=== PATIENT | female | born 1995 | race African-American/Black ===

== ENCOUNTER 2021-01-17 18:12 | Inpatient (IN) | payer OTHER, SELFPAY ==
--- NOTE | ~2021-01-17 | XR_ITS ---
EXAMINATION: XR CHEST CLINICAL INFORMATION: Chest pain COMPARISON: None TECHNIQUE: 2 views of the chest were obtained. FINDINGS: No significant abnormality is noted involving the heart, lungs, mediastinum, bony thorax or soft tissues. Mild biconvex thoracolumbar scoliosis is present. XR/XR chest 2V IMPRESSION: A cause for the patient's chest pain has not been found. The exam is negative aside from a mild biconvex thoracolumbar scoliosis.
--- NOTE | ~2021-01-17 | US_ITS ---
EXAMINATION: US ABDOMEN COMPLETE CLINICAL INFORMATION: Elevated LFTs. COMPARISON: None TECHNIQUE: Real-time imaging of the abdominal viscera. FINDINGS: PANCREAS: Normal. ABDOMINAL AORTA: The proximal, mid, and distal segments are normal in caliber. There is an echogenic linear non-shadowing area in the proximal abdominal aorta, most likely thrombus and chronic. INFERIOR VENA CAVA: Visualized portions are normal. LIVER: Normal. The liver is normal in size. The liver contour is normal. Parenchymal echogenicity is normal. No focal hepatic lesion. There is no intrahepatic biliary duct dilatation seen. GALLBLADDER: Normal. The gallbladder is physiologically distended without evidence of stones, sludge, polyps, wall thickening or pericholecystic fluid. COMMON BILE DUCT: Normal in caliber measuring 0.4 cm in diameter. RIGHT KIDNEY: Normal. No hydronephrosis. No renal calculi or focal parenchymal lesions. The kidney measures 10.3 cm in maximum dimension. LEFT KIDNEY: Normal. No hydronephrosis. No renal calculi or focal parenchymal lesions. The kidney measures 9.7 cm in maximum dimension. SPLEEN: Normal. The spleen measures 9.1 cm in maximum dimension. FREE FLUID: None. US/US abdomen complete IMPRESSION: Linear echogenic non-shadowing area in the proximal abdominal aortic central lumen, likely chronic thrombus. No aneurysm seen. The rest of the abdominal ultrasound is unremarkable.
--- NOTE | 2021-01-17 18:26 | PC.NURSE ---
ekg done at 89
[2021-01-17 18:50] VITALS: BP 124/80; PULSE 99; RESP 16; TEMP 36.3; O2SAT 100; BMI 22.7
[2021-01-17 22:00] VITALS: BP 141/75; PULSE 84; RESP 18; O2SAT 100
--- NOTE | 2021-01-17 22:25 | ED.GENADULT ---
HPI - General Adult General Chief complaint: General Medical Stated complaint: Lupus, chest pain Time Seen by Provider: 01/17/21 22:02 Source: patient Mode of arrival: ambulatory History of Present Illness HPI narrative: 25-year-old female with history of lupus and currently on Plaquenil well as prednisone. Patient states that she has been having increasing esophageal/swallowing symptoms for over 2 weeks and states that she had lab work completed this past Friday. She states that over the past couple of days she has noticed that she is having increased pain when lying flat that improves with sitting up. She denies any fevers, chills but states that she has baseline swelling with her hands that she has noticed has been ?a little worse?. and otherwise denies shortness of breath, GI symptoms, or symptoms. Patient states that she eats while laying down on her side and then notes that when she stands up she has discomfort from her stomach up to the back of her throat and endorses that at times she has coughed up large pieces of food. In addition, she describes that when she smokes cigarettes she notices discomfort as well. Otherwise she denies any recent travel, cough, sore throat. Related Data Allergies Allergy/AdvReac Type Severity Reaction Status Date / Time No Known Allergies Allergy Verified 01/17/21 18:57 Review of Systems Review of Systems: Pertinent positives and negatives as stated in HPIAnd 10 point review of systems is otherwise negative. PMFSH Past Medical History Source: nursing notes reviewed Medical History Lupus Social History Social History Alcohol intake: never Smoking Status: Current every day smoker Smoked in Last 30 Days: Yes Use of substances other than those prescribed or required for medical reasons: Yes Substance Use Type: Heroin, Marijuana, Opiates and Prescription Drugs Advance Directives: No Patient : No Physical Exam Vital Signs: Vital Signs: Last Vital Signs Temp 98.0 F 01/18/21 03:21 Pulse 74 01/18/21 03:21 Resp 16 01/18/21 03:21 BP 109/59 L 01/18/21 03:21 Pulse Ox 100 01/18/21 03:21 Body Mass Index 22.7 VITAL SIGNS: Reviewed. GENERAL: Well developed, well nourished, in no acute distress. HEAD: Normocephalic/atraumatic EYES: PERRLA, EOMI OROPHARYNX: no oral lesions noted, posterior pharynx clear NECK: Supple, no adenopathy LUNGS: Normal breath sounds. No adventitious sounds or accessory muscle use. SpO2<100> CARDIOVASCULAR: Regular rate and rhythm without noted murmurs ABDOMEN: Soft, non-tender, non-distended with bowel sounds. NEUROLOGIC: Alert and oriented x 4. Course Course Course Narrative: This 25-year-old female with history and clinical presentation suggestive of possible sequela associated with lupus condition although patient appears to be compliant with medications. In addition, there is the possibility that this is GERD. Will rule out cardiopulmonary etiologies and eval for possible lupus flare, however this is felt to be less likely. On review of all investigations there is a noted first-degree AV block on the EKG without ischemic changes with elevated troponins noted, there is no other EKG for comparison. There is a noted mild elevation of the ESR as well as CRP and given history of positional change with patient's pain raises suspicion for possible pericarditis and lupus flare. Urinalysis is noted to be positive for UTI. Repeat troponin was noted to be trending down and this case was discussed with the inpatient hospitalist team who is agreeable for admission and further evaluation. Medical Decision Making Lab Data Result diagrams: 01/17/21 22:28 01/17/21 22:28 Labs: Lab Results 01/17/21 01/17/21 01/17/21 Range/Units 22:27 22:27 22:28 WBC 5.4 (4.8-10.8) X10*3/uL RBC 3.54 L (4.20-5.50) X10*6/uL Hgb 10.2 L (12.0-16.0) g/dl Hct 32.0 L (37-47) % MCV 90.4 (80-98) fL MCH 28.8 (27.0-33.0) pg MCHC 31.9 (31.0-35.0) g/dl RDW 14.1 (11.0-16.0) % Plt Count 279 (160-400) X10*3/uL MPV 9.6 (9.4-12.3) fL Immature Gran % (Auto) 0.6 H (0.0-0.4) % Neut % (Auto) 75.7 H (45-73) % Lymph % (Auto) 18.3 L (20-40) % [place] % (Auto) 5.4 (2-11) % Eos % (Auto) 0.0 (0-4) % Baso % (Auto) 0.0 (0-2) % Lymph # (Auto) 1.0 L (1.2-4.9) X10*3/uL [place] # (Auto) 0.3 (0.1-1.2) X10*3/uL Eos # (Auto) 0.0 (0.0-0.4) X10*3/uL Baso # (Auto) 0.0 (0.0-0.2) X10*3/uL Abs Immat Gran (auto) 0.03 (0.00-0.03) X10*3/uL Absolute Neuts (auto) 4.1 (2.0-8.3) X10*3/uL Absolute Nucleated RBC 0.000 (0.0-0.012) X10*3/uL Nucleated RBC % (auto) 0.0 (0.0-0.2) /100WBC ESR (0-20) MM/HR Sodium (135-145) mmol/L Potassium (3.3-5.1) mmol/L Chloride (96-108) mmol/L Carbon Dioxide (22-29) mmol/L Anion Gap (12-20) BUN (9-16) mg/dL Creatinine (0.5-1.4) mg/dL Estim Creat Clear Calc Estimated GFR Random Glucose (60-115) mg/dL Calcium (8.4-10.2) mg/dL Total Bilirubin (0.0-1.0) mg/dL AST (5-31) U/L ALT (0-31) U/L Alkaline Phosphatase (39-117) U/L Troponin I High Sens (<3.5-17.0) ng/L C-Reactive Protein (< or = 0.50) mg/dL Total Protein (6.5-8.0) g/dL Albumin (3.5-5.0) g/dL Lipase (8-78) U/L Urine Color YELLOW Urine Appearance HAZY Urine pH 6.0 (5.0-8.0) Ur Specific [place] 1.025 (1.005-1.025) Urine Protein TRACE (NEG-TRACE) MG/DL Urine Glucose (UA) NEG (NEG) MG/DL Urine Ketones NEG (NEG) MG/DL Urine Blood TRACE (NEG) Urine Nitrite POS H (NEG) Ur Leukocyte Esterase NEG (NEG) Urine RBC 0-2 (0) /HPF Urine WBC 0 (0-4) /HPF Ur Squamous Epith Cells 1+ /LPF Urine Bacteria 2+ /LPF Urine Test NEGATIVE (NEGATIVE) COVID-19 (VERA) (Negative) COVID-19 Clin Com 01/17/21 01/17/21 01/17/21 Range/Units 22:28 22:28 22:28 WBC (4.8-10.8) X10*3/uL RBC (4.20-5.50) X10*6/uL Hgb (12.0-16.0) g/dl Hct (37-47) % MCV (80-98) fL MCH (27.0-33.0) pg MCHC (31.0-35.0) g/dl RDW (11.0-16.0) % Plt Count (160-400) X10*3/uL MPV (9.4-12.3) fL Immature Gran % (Auto) (0.0-0.4) % Neut % (Auto) (45-73) % Lymph % (Auto) (20-40) % [place] % (Auto) (2-11) % Eos % (Auto) (0-4) % Baso % (Auto) (0-2) % Lymph # (Auto) (1.2-4.9) X10*3/uL [place] # (Auto) (0.1-1.2) X10*3/uL Eos # (Auto) (0.0-0.4) X10*3/uL Baso # (Auto) (0.0-0.2) X10*3/uL Abs Immat Gran (auto) (0.00-0.03) X10*3/uL Absolute Neuts (auto) (2.0-8.3) X10*3/uL Absolute Nucleated RBC (0.0-0.012) X10*3/uL Nucleated RBC % (auto) (0.0-0.2) /100WBC ESR 48 H (0-20) MM/HR Sodium 136 (135-145) mmol/L Potassium 4.4 (3.3-5.1) mmol/L Chloride 103 (96-108) mmol/L Carbon Dioxide 25 (22-29) mmol/L Anion Gap 12 (12-20) BUN 11 (9-16) mg/dL Creatinine 0.80 (0.5-1.4) mg/dL Estim Creat Clear Calc 102.7 Estimated GFR > 60 Random Glucose 90 (60-115) mg/dL Calcium 9.4 (8.4-10.2) mg/dL Total Bilirubin 0.5 (0.0-1.0) mg/dL AST 23 (5-31) U/L ALT 6 (0-31) U/L Alkaline Phosphatase 41 (39-117) U/L Troponin I High Sens 116.0 H (<3.5-17.0) ng/L C-Reactive Protein 0.89 H (< or = 0.50) mg/dL Total Protein 8.0 (6.5-8.0) g/dL Albumin 3.9 (3.5-5.0) g/dL Lipase 4 L (8-78) U/L Urine Color Urine Appearance Urine pH (5.0-8.0) Ur Specific [place] (1.005-1.025) Urine Protein (NEG-TRACE) MG/DL Urine Glucose (UA) (NEG) MG/DL Urine Ketones (NEG) MG/DL Urine Blood (NEG) Urine Nitrite (NEG) Ur Leukocyte Esterase (NEG) Urine RBC (0) /HPF Urine WBC (0-4) /HPF Ur Squamous Epith Cells /LPF Urine Bacteria /LPF Urine Test (NEGATIVE) COVID-19 (VERA) (Negative) COVID-19 Clin Com 01/18/21 01/18/21 Range/Units 01:30 01:30 WBC (4.8-10.8) X10*3/uL RBC (4.20-5.50) X10*6/uL Hgb (12.0-16.0) g/dl Hct (37-47) % MCV (80-98) fL MCH (27.0-33.0) pg MCHC (31.0-35.0) g/dl RDW (11.0-16.0) % Plt Count (160-400) X10*3/uL MPV (9.4-12.3) fL Immature Gran % (Auto) (0.0-0.4) % Neut % (Auto) (45-73) % Lymph % (Auto) (20-40) % [place] % (Auto) (2-11) % Eos % (Auto) (0-4) % Baso % (Auto) (0-2) % Lymph # (Auto) (1.2-4.9) X10*3/uL [place] # (Auto) (0.1-1.2) X10*3/uL Eos # (Auto) (0.0-0.4) X10*3/uL Baso # (Auto) (0.0-0.2) X10*3/uL Abs Immat Gran (auto) (0.00-0.03) X10*3/uL Absolute Neuts (auto) (2.0-8.3) X10*3/uL Absolute Nucleated RBC (0.0-0.012) X10*3/uL Nucleated RBC % (auto) (0.0-0.2) /100WBC ESR (0-20) MM/HR Sodium (135-145) mmol/L Potassium (3.3-5.1) mmol/L Chloride (96-108) mmol/L Carbon Dioxide (22-29) mmol/L Anion Gap (12-20) BUN (9-16) mg/dL Creatinine (0.5-1.4) mg/dL Estim Creat Clear Calc Estimated GFR Random Glucose (60-115) mg/dL Calcium (8.4-10.2) mg/dL Total Bilirubin (0.0-1.0) mg/dL AST (5-31) U/L ALT (0-31) U/L Alkaline Phosphatase (39-117) U/L Troponin I High Sens 100.0 H (<3.5-17.0) ng/L C-Reactive Protein (< or = 0.50) mg/dL Total Protein (6.5-8.0) g/dL Albumin (3.5-5.0) g/dL Lipase (8-78) U/L Urine Color Urine Appearance Urine pH (5.0-8.0) Ur Specific [place] (1.005-1.025) Urine Protein (NEG-TRACE) MG/DL Urine Glucose (UA) (NEG) MG/DL Urine Ketones (NEG) MG/DL Urine Blood (NEG) Urine Nitrite (NEG) Ur Leukocyte Esterase (NEG) Urine RBC (0) /HPF Urine WBC (0-4) /HPF Ur Squamous Epith Cells /LPF Urine Bacteria /LPF Urine Test (NEGATIVE) COVID-19 (VERA) Negative (Negative) COVID-19 Clin Com See Note ECG Data Attestation: I personally reviewed and interpreted this ECG as follows: Prior ECG tracings: not available for review Interpretation: Sinus rhythm, HR-96, no evidence of acute ischemia, significant first-degree AV block -252, QRS/QTC are within normal limits. Discharge Plan Discharge Clinical Impression: UTI (urinary tract infection), Pericarditis, Lupus Patient Disposition: Admitted As Inpatient
--- NOTE | 2021-01-17 22:31 | ECG_ITS ---
Test Reason : CP Blood Pressure : / mmHG Vent. Rate : 096 BPM Atrial Rate : 096 BPM P-R Int : 252 ms QRS Dur : 084 ms QT Int : 338 ms P-R-T Axes : 058 071 061 degrees QTc Int : 427 ms Sinus rhythm with sinus arrhythmia with 1st degree A-V block Mild ST elevation inferior and anterolateral leads Borderline ECG No previous ECGs available Referred By: Crys Valdez Electronically Signed By:ARRON SUAREZ
[2021-01-17 22:35] LABS: MANUAL DIFF FLAG NO
[2021-01-17 22:36] LABS: Hemoglobin 10.2 g/dl (12.0-16.0); Imm Gran Abs Auto 0.03 X10*3/uL (0.00-0.03); Imm Gran Pct Auto 0.6 % (0.0-0.4); Lymphocytes Percent Auto 18.3 % (20-40); Mean Corpuscular HGB Conc 31.9 g/dl (31.0-35.0); Mean Corpuscular Hemoglobin 28.8 pg (27.0-33.0); Mean Corpuscular Volume 90.4 fL (80-98); Mean Platelet Volume 9.6 fL (9.4-12.3); Monocytes Absolute Auto 0.3 X10*3/uL (0.1-1.2); Monocytes Percent Auto 5.4 % (2-11); Neutrophils Absolute Auto 4.1 X10*3/uL (2.0-8.3); Neutrophils Percent Auto 75.7 % (45-73); Platelet Count 279 X10*3/uL (160-400); Red Blood Count 3.54 X10*6/uL (4.20-5.50); Red Cell Distribution Width 14.1 % (11.0-16.0); White Blood Count 5.4 X10*3/uL (4.8-10.8)
[2021-01-17 22:37] LABS: Glucose Urine UA NEG (NEG); Leukocyte Esterase Urine NEG (NEG); Nitrite Urine POS (NEG); Specific Gravity - Urine 1.025 (1.005-1.025); UACC Culture Trigger YES; Urine Blood TRACE (NEG); Urine Ketones NEG (NEG); Urine Protein TRACE MG/DL (NEG-TRACE)
[2021-01-17 22:41] LABS: Appearance Urine HAZY; Color Urine YELLOW; UPreg QC Valid YES; Urine Pregnancy NEGATIVE (NEGATIVE)
[2021-01-17 22:45] LABS: Bacteria Urine 2+ /LPF; RBC Urine 0-2 /HPF (0); Squamous Epithelial Cell Urine 1+ /LPF; WBC Urine 0 /HPF (0-4)
[2021-01-17] MEDS: Magnesium Hydrox/Alum Hydrox 30 ML ORAL.SUSP PO (22:57)
[2021-01-17] MEDS: Lidocaine HCl Viscous 2 % 15 ML SOLUTION 10 ML MUCOUS MEM (22:58)
[2021-01-17 23:04] LABS: Alanine Aminotransferase 6 U/L (0-31); Albumin Level 3.9 g/dL (3.5-5.0); Alkaline Phosphatase 41 U/L (39-117); Anion Gap 12 (12-20); Aspartate Amino Transferase 23 U/L (5-31); Bilirubin Total 0.5 mg/dL (0.0-1.0); Blood Urea Nitrogen 11 mg/dL (9-16); Calcium 9.4 mg/dL (8.4-10.2); Carbon Dioxide 25 mmol/L (22-29); Chloride 103 mmol/L (96-108); Creatinine Clr Calc Pharmacy 102.7; Estimated Glomerular Filt Rate > 60; Glucose Random 90 mg/dL (60-115); Lipase 4 U/L (8-78); Potassium 4.4 mmol/L (3.3-5.1); Sodium 136 mmol/L (135-145)
[2021-01-17 23:48] LABS: Erythrocyte Sedimentation Rate 48 MM/HR (0-20)
[2021-01-18] VITALS (8 sets, daily range): BP systolic 95–138; BP diastolic 48–69; PULSE 74–90; RESP 16–18; TEMP 36.3–37; O2SAT 99–100
[2021-01-18 00:35] LABS: C Reactive Protein 0.89 mg/dL (< or = 0.50)
[2021-01-18 01:50] LABS: COVID-19 Test Negative (Negative)
[2021-01-18] MEDS: diphenhydrAMINE HCL 25 MG TABLET PO (03:11)
[2021-01-18] MEDS: Ketorolac Tromethamine 15 MG/ML VIAL IVPUSH (03:11)
[2021-01-18] MEDS: cefTRIAXone sodium 1 GM in 0.9 % Sodium Chloride 50 ML IV (03:20)
--- NOTE | 2021-01-18 04:24 | P.HPHOSP_ITS ---
History of Present Illness Date of Service: 01/18/21 Chief Complaint: joint and chest pain A 5-year-old female with past medical history of lupus who presents to the hospital with complaints of chest pain, as well as joint pain and swelling. Patient reports that she has been going through a stressful situation at this time with her mom leaving to moved to [place], causing her a lot of anxiety and depression and that is when her symptoms started. Her symptoms worsened about 3 days ago, flare around the evening with difficulty even walking due to the severe pain she has in her knee joints, wrist joints, elbows, arms all over. She describes the chest pain as choking sensation in her chest, she feels like her heart is about to jump out of her chest, similar to a panic attack, she points to the pain in the center of her chest radiating to her throat, not associated with any shortness of breath, although reports that her breathing was funny today. She denies any fever chills, no abdominal pain nausea or vomiting, no diarrhea constipation, no urinary symptoms and no lower extremity edema. On arrival to the ED No significant abnormal vitals Labs are significant for WBC count of 5.4, hemoglobin of 10.2, ESR 48, CRP of 0.89, troponin of 116 decreased to 100, UA that is positive for nitrites with no leukocytosis, chest x-ray negative. EKG showed first-degree AV block with no other abnormalities Past medical history as below and confirmed with patient Review of Systems Review of Systems: Yes all other systems are reviewed and are negative [facility] Medical History Lupus Social History Alcohol intake: never Smoking Status: Current every day smoker Smoked in Last 30 Days: Yes Use of substances other than those prescribed or required for medical reasons: Yes Substance Use Type: Heroin, Marijuana, Opiates and Prescription Drugs Advance Directives: No Patient : No Meds Allergies Allergy/AdvReac Type Severity Reaction Status Date / Time No Known Allergies Allergy Verified 01/17/21 18:57 Physical Exam Vital Signs and Narrative: Vital Signs: Last Vital Signs Temp 98.0 F 01/18/21 03:21 Pulse 74 01/18/21 03:21 Resp 16 01/18/21 03:21 BP 109/59 L 01/18/21 03:21 Pulse Ox 100 01/18/21 03:21 Body Mass Index 22.7 Const: General: cooperative and no acute distress Orientation/consciousness: patient oriented x3 Eyes: General: appearance normal, both eyes and all related structures Resp: Effort & Inspection: normal respiratory effort and able to speak in complete sentences Cardio: Rate: regular rate Rhythm: regular rhythm GI: Palpation (GI): Soft to palpation Auscultation: normal bowel sounds Skin: General skin exam: no rashes or lesions noted Neuro: General: patient oriented x3 Cognition (Neuro): normal cognition Extrem: Other: Right wrist swelling, the hand joint swelling, and tenderness on palpation Results Labs CBC and Chem 7: 01/17/21 22:28 01/17/21 22:28 Labs: Laboratory Results - last 24 hr 01/17/21 01/17/21 01/17/21 22:27 22:27 22:28 MCV 90.4 MCH 28.8 MCHC 31.9 RDW 14.1 Plt Count 279 MPV 9.6 Immature Gran % (Auto) 0.6 H Neut % (Auto) 75.7 H Lymph % (Auto) 18.3 L [place] % (Auto) 5.4 Eos % (Auto) 0.0 Baso % (Auto) 0.0 Lymph # (Auto) 1.0 L [place] # (Auto) 0.3 Eos # (Auto) 0.0 Baso # (Auto) 0.0 Abs Immat Gran (auto) 0.03 Absolute Neuts (auto) 4.1 Absolute Nucleated RBC 0.000 Nucleated RBC % (auto) 0.0 ESR Anion Gap Estim Creat Clear Calc Estimated GFR Random Glucose Calcium Total Bilirubin AST ALT Alkaline Phosphatase Troponin I High Sens C-Reactive Protein Total Protein Albumin Lipase Urine Color YELLOW Urine Appearance HAZY Urine pH 6.0 Ur Specific [place] 1.025 Urine Protein TRACE Urine Glucose (UA) NEG Urine Ketones NEG Urine Blood TRACE Urine Nitrite POS H Ur Leukocyte Esterase NEG Urine RBC 0-2 Urine WBC 0 Ur Squamous Epith Cells 1+ Urine Bacteria 2+ Urine Test NEGATIVE COVID-19 (VERA) COVID-19 Clin Com 01/17/21 01/17/21 01/17/21 22:28 22:28 22:28 MCV MCH MCHC RDW Plt Count MPV Immature Gran % (Auto) Neut % (Auto) Lymph % (Auto) [place] % (Auto) Eos % (Auto) Baso % (Auto) Lymph # (Auto) [place] # (Auto) Eos # (Auto) Baso # (Auto) Abs Immat Gran (auto) Absolute Neuts (auto) Absolute Nucleated RBC Nucleated RBC % (auto) ESR 48 H Anion Gap 12 Estim Creat Clear Calc 102.7 Estimated GFR > 60 Random Glucose 90 Calcium 9.4 Total Bilirubin 0.5 AST 23 ALT 6 Alkaline Phosphatase 41 Troponin I High Sens 116.0 H C-Reactive Protein 0.89 H Total Protein 8.0 Albumin 3.9 Lipase 4 L Urine Color Urine Appearance Urine pH Ur Specific [place] Urine Protein Urine Glucose (UA) Urine Ketones Urine Blood Urine Nitrite Ur Leukocyte Esterase Urine RBC Urine WBC Ur Squamous Epith Cells Urine Bacteria Urine Test COVID-19 (VEAR) COVID-19 [place] 01/18/21 01/18/21 01:30 01:30 MCV MCH MCHC RDW Plt Count MPV Immature Gran % (Auto) Neut % (Auto) Lymph % (Auto) [place] % (Auto) Eos % (Auto) Baso % (Auto) Lymph # (Auto) [place] # (Auto) Eos # (Auto) Baso # (Auto) Abs Immat Gran (auto) Absolute Neuts (auto) Absolute Nucleated RBC Nucleated RBC % (auto) ESR Anion Gap Estim Creat Clear Calc Estimated GFR Random Glucose Calcium Total Bilirubin AST ALT Alkaline Phosphatase Troponin I High Sens 100.0 H C-Reactive Protein Total Protein Albumin Lipase Urine Color Urine Appearance Urine pH Ur Specific [place] Urine Protein Urine Glucose (UA) Urine Ketones Urine Blood Urine Nitrite Ur Leukocyte Esterase Urine RBC Urine WBC Ur Squamous Epith Cells Urine Bacteria Urine Test COVID-19 (VERA) Negative COVID-19 Curves Com See Note Imaging Radiologist's Impressions: Impressions Chest X-Ray 01/17/21 22:48 IMPRESSION: A cause for the patient's chest pain has not been found. The exam is negative aside from a mild biconvex thoracolumbar scoliosis. Assessment and Plan (1) Lupus: Status: Acute (2) UTI (urinary tract infection): Status: Acute (3) Chest pain: Status: Acute 25-year-old female with history of lupus who presents to the hospital with joint swelling, And chest pain # atypical chest pain - possibly secondary to pericarditis versus panic attack/anxiety - although troponins elevated, no EKG changes suggestive of ACS - troponin trended down from 116-100 - patient reports that she takes prednisone symptoms for her lupus Plan: - will start on prednisone p.o. - received dose of ketorolac in the ED - consult cardiology # UTI - has nitrites with no leukocyte Estrace and no wbc's - given her lupus flare will treat her UTI with ceftriaxone, can be switched to p.o. in a.m. # lupus flare - has joint pain, no evidence of kidney damage, no cutaneous manifestation - has elevated ESR and CRP - will start on prednisone p.o. 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
--- NOTE | 2021-01-18 06:12 | PC.NURSE ---
PATIENT RESTING WITH EYES CLOSED. NO DISTRESS NOTED AT THIS TIME. AWAITING ROOM ASSIGNMENT ON MED SURG
[2021-01-18] MEDS: predniSONE 20 MG TABLET PO (08:57)
--- NOTE | 2021-01-18 09:30 | CA_ITS ---
Transthoracic Echocardiogram Patient (Last, First, Middle): Trey Canales, Gender: Female Date of : 1995 Age: 25 Procedure Date: 01/18/2021 Procedure Type: Transthoracic Echocardiogram Location: ER Height: 170.18 cm Weight: 65.77 kg BSA: 1.76 m2 Heart Rate: bpm BP: 95 / 69 mmHg Career Technical Supervisor: GIAN Referring MD: Chaz Cole MD Symptoms: elevated troponins, pericarditis Study Quality: Fair ECG Rhythm: Sinus Conclusions: - The left ventricular systolic function is normal. The visually estimated ejection fraction is between 65-70%. - No obvious valvular pathology seen on this study. - There is no evidence of pericardial effusion. - Echogenic density in liver measuring 9 x 4cm; heterogeneous appearance, possibly complex cyst. Consider dedicated liver ultrasound . Findings Left Ventricle Normal left ventricular cavity size. There is normal left ventricular wall thickness. The left ventricular systolic function is normal. The visually estimated ejection fraction is between 65-70%. There is no evidence of regional wall motion abnormalities. Diastolic function is normal for age. Right Ventricle Normal right ventricular cavity size and systolic function. Atria Both atria are normal in size. Aortic Valve There is a normal trileaflet aortic valve. There is no aortic valve stenosis. There is no aortic valve regurgitation. Mitral Valve The mitral valve appears normal. There is trace mitral valve regurgitation. There is no mitral valve stenosis. Pulmonic Valve The pulmonic valve was not well visualized. Tricuspid Valve Normal tricuspid valve structure. There is trace tricuspid valve regurgitation. The pulmonary artery systolic pressure is normal. Great Vessels The aortic annulus and asc aorta are normal in size. Venous The inferior vena cava is normal in size and collapses greater than 50% with inspiration. Pericardium/Pleural There is no evidence of pericardial effusion. Echogenic density in liver measuring 9 x 4cm; heterogeneous appearance, possibly complex cyst. Prior Study Comparison No prior study available for comparison. Recommendations, Care & Conclusions No obvious valvular pathology seen on this study. Measurements M-Mode Liner Measurements Normals - Women/Men AOV Cusps: 2.00 1.5-2.6 cm/m2 2D Linear Measurements IVSd: 1.17 0.6-0.9/0.6-1.0 cm LVIDd: 4.66 3.9-5.3/4.2-5.9 cm LVIDd Index: 2.65 2.4-3.2/2.2-3.1 cm/m2 LVIDs: 3.05 2.0-3.6 cm LVPWd: 0.94 0.7-1.1 cm Ao Root: 2.50 2.1-3.5 cm LA Diam: 2.20 2.7-3.8/3.0-4.0 cm LAIDs Index: 1.25 1.5-2.3 cm/m2 LV Mass: 217.31 67-162/88-224 g LV Mass Index: 123.47 43-95/49-115 g/m2 LVOT Diam: 2.30 3.0+(-)1.3 cm 2D Systolic Function EF 4C: 49.20 >55% EF 2C: 61.40 >55% Mitral Valve MV Pk E: 1.36 MV PK A: 0.96 MV Decel Time: 221.00 E/A: 1.40 E'Lateral: 15.30 E'Medial: 12.70 E/E' Med: 10.70 E/E' Lat: 8.90 PHT: 65.00 MVA PHT: 3.38 Decel Crosby: 6.14 Aortic Valve AoV Pk Didier: 1.51 AoV Mn Didier: 1.05 AoV VTI: 0.33 AoV Pk Grad: 9.00 Aov Mn Grad: 5.00 JASPAL Cont.VTI: 2.67 LVOT LVOT Pk Didier: 0.97 LVOT Mn Didier: 0.71 LVOT VTI: 0.21 LVOT Pk Grad: 4.00 LVOT Mn Grad: 2.00 LVOT Diam: 2.30 LVOT Area: 4.15 Diastolic Function MV Pk E: 1.36 MV Pk A: 0.96 E/A: 1.40 E'Medial: 12.70 E/E' Med: 10.70 E' Laterial: 15.30 E/E' Lat: 8.90 Tricuspid Valve TR Pk Didier: 1.98 TR Pk Grad: 16.00 RA Press: 3.00 RVSP: 19.00 Great Vessels Aorta Ao Root-2D: 2.50 2.0-3.7 cm Ao Asc: 2.30 2.1-3.4 cm Ao Arch: 1.70 Pulmonary Valve PV Pk Didier: 1.09 Peak PV Grad: 5.00 Updated in Other Vendor System with Status of Final Chaz Cole MD electronically signed on 01/18/2021 4:20:27 PM with status of Final
--- NOTE | 2021-01-18 10:59 | PM.CNCAR ---
History of Present Illness History of Present Illness Date of Service: 01/18/21 Consult reason: chest pain Chief complaint: Lupus flare Narrative: This is a cardiology consultation regarding chest pain. Patient has a history of lupus. She states that she does get some random chest pains every now and then. However for the last few days, she has been having a discomfort in the chest that feels somewhat different. This is in the upper part of the chest and the lower part of the neck area. No specific provoking factors and no specific relieving factors. No clear shortness of breath or palpitations or any other cardiac symptoms at this time. She is also having a flare-up of a joint pains for the last few days as well. Otherwise, there is no history of any coronary disease myocardial infarction or any other cardiac concerns. She does have a history of lupus and is on chronic prednisone and Plaquenil. Troponins were checked in the ER and abnormal and hence we have been asked to see her. Review of Systems Review of Systems: Yes all other systems are reviewed and are negative Cardiovascular: Cardiovascular: Reports as per HPI, Reports no additional cardiovascular complaints, Denies acrocyanosis, Denies cool extremities, Denies painful fingertips, Reports chest pain, Reports chest pain at rest, Denies diaphoresis, Denies syncope, Denies irregular heart rhythm, Denies claudication, Denies leg edema, Denies lightheadedness, Denies palpitations and Denies dyspnea Respiratory: Respiratory: Denies dyspnea Neurologic: Denies syncope Endocrine: Endocrine: Denies palpitations PMFSH Past Medical History Medical History Lupus Social History Social History Alcohol intake: never Smoking Status: Current every day smoker Smoked in Last 30 Days: Yes Use of substances other than those prescribed or required for medical reasons: Yes Substance Use Type: Heroin, Marijuana, Opiates and Prescription Drugs Advance Directives: No Patient : No Meds Allergies Allergy/AdvReac Type Severity Reaction Status Date / Time No Known Allergies Allergy Verified 01/17/21 18:57 Active Medications: Current Medications Generic Name Dose Route Start Last Admin Trade Name Freq PRN Reason Stop Dose Admin Acetaminophen 650 mg 01/18/21 05:08 Acetaminophen 325 Mg Tablet PO Q6H PRN Pain, Mild (Pain Scale 1-3) Docusate Sodium 100 mg 01/18/21 05:08 Docusate Sodium 100 Mg Capsule PO DAILY PRN Constipation Ceftriaxone Sodium 1 gm/ 50 mls @ 100 mls/hr 01/19/21 06:00 Sodium Chloride IV Q24H [facility] Ondansetron HCl 4 mg 01/18/21 05:08 Ondansetron Hcl 4 Mg/2 Ml Vial IVPUSH Q8H PRN Nausea and Vomiting Oxycodone HCl 5 mg 01/18/21 05:08 Oxycodone Hcl Immed Release 5 Mg Tablet PO Q6H PRN Pain, Severe (Pain Scale 7-10) Pharmacy Consult 1 each 01/18/21 07:07 Consult Rx Perform Med Rec MISCELLANE ONCE PRN Consult order Prednisone 20 mg 01/18/21 09:00 01/18/21 08:57 Prednisone 20 Mg Tablet PO 20 mg DAILY [facility] Administration Sodium Chloride 3 ml 01/18/21 08:00 01/18/21 09:01 0.9 % Sodium Chloride Flush 3 Ml Syringe IVFLUSH Not Given QSHIFT [facility] Home Medications Medication Instructions Recorded Confirmed Last Taken Type hydroxychloroquine 300 mg PO DAILY 01/18/21 01/18/21 01/17/21 History ibuprofen 1 tab PO TID PRN 01/18/21 01/18/21 Unknown History prednisone 5 mg PO DAILY@1700 01/18/21 01/18/21 Unknown History prednisone 7.5 mg PO DAILY 01/18/21 01/18/21 01/17/21 History Physical Exam Vital Signs: Vital Signs: Last Vital Signs Temp 98 F 01/18/21 08:23 Pulse 90 01/18/21 08:23 Resp 16 01/18/21 08:23 BP 95/69 01/18/21 08:23 Pulse Ox 100 01/18/21 08:23 Body Mass Index 22.7 Const: General: cooperative, comfortable and no acute distress Orientation/consciousness: patient oriented x3 HENMT: Other: Unremarkable Neck: Neck: Yes normal visual inspection Chest: Chest palpation & inspection: normal inspection of the chest Resp: Auscultation: clear to auscultation bilaterally, no crackles and no wheezes Cardio: Jugular venous distension: no JVD Palpation: normal PMI Heart sounds: S1 normal heart sound present, S2 normal heart sound present, no gallops, no murmurs and no rubs GI: Palpation (GI): Soft to palpation Back/Spine/Pelvis: Other: unremarkable Skin: General skin exam: no rashes or lesions noted Neuro: General: patient oriented x3 Extrem: General: Yes no clubbing, cyanosis or edema Psych: Mental Status: mental status grossly normal Results Labs and Meds Result diagrams: 01/17/21 22:28 01/17/21 22:28 Lab results: Laboratory Results - last 24 hr 01/17/21 01/17/21 01/17/21 22:27 22:27 22:28 WBC 5.4 RBC 3.54 L Hgb 10.2 L Hct 32.0 L MCV 90.4 MCH 28.8 MCHC 31.9 RDW 14.1 Plt Count 279 MPV 9.6 Immature Gran % (Auto) 0.6 H Neut % (Auto) 75.7 H Lymph % (Auto) 18.3 L [place] % (Auto) 5.4 Eos % (Auto) 0.0 Baso % (Auto) 0.0 Lymph # (Auto) 1.0 L [place] # (Auto) 0.3 Eos # (Auto) 0.0 Baso # (Auto) 0.0 Abs Immat Gran (auto) 0.03 Absolute Neuts (auto) 4.1 Absolute Nucleated RBC 0.000 Nucleated RBC % (auto) 0.0 ESR Sodium Potassium Chloride Carbon Dioxide Anion Gap BUN Creatinine Estim Creat Clear Calc Estimated GFR Random Glucose Calcium Total Bilirubin AST ALT Alkaline Phosphatase Troponin I High Sens C-Reactive Protein Total Protein Albumin Lipase Urine Color YELLOW Urine Appearance HAZY Urine pH 6.0 Ur Specific [place] 1.025 Urine Protein TRACE Urine Glucose (UA) NEG Urine Ketones NEG Urine Blood TRACE Urine Nitrite POS H Ur Leukocyte Esterase NEG Urine RBC 0-2 Urine WBC 0 Ur Squamous Epith Cells 1+ Urine Bacteria 2+ Urine Test NEGATIVE COVID-19 ([facility]) COVID-19 Clin Com 01/17/21 01/17/21 01/17/21 22:28 22:28 22:28 WBC RBC Hgb Hct MCV MCH MCHC RDW Plt Count MPV Immature Gran % (Auto) Neut % (Auto) Lymph % (Auto) [place] % (Auto) Eos % (Auto) Baso % (Auto) Lymph # (Auto) [place] # (Auto) Eos # (Auto) Baso # (Auto) Abs Immat Gran (auto) Absolute Neuts (auto) Absolute Nucleated RBC Nucleated RBC % (auto) ESR 48 H Sodium 136 Potassium 4.4 Chloride 103 Carbon Dioxide 25 Anion Gap 12 BUN 11 Creatinine 0.80 Estim Creat Clear Calc 102.7 Estimated GFR > 60 Random Glucose 90 Calcium 9.4 Total Bilirubin 0.5 AST 23 ALT 6 Alkaline Phosphatase 41 Troponin I High Sens 116.0 H C-Reactive Protein 0.89 H Total Protein 8.0 Albumin 3.9 Lipase 4 L Urine Color Urine Appearance Urine pH Ur Specific [place] Urine Protein Urine Glucose (UA) Urine Ketones Urine Blood Urine Nitrite Ur Leukocyte Esterase Urine RBC Urine WBC Ur Squamous Epith Cells Urine Bacteria Urine Test COVID-19 ([facility]) COVID-19 aDealio 01/18/21 01/18/21 01:30 01:30 WBC RBC Hgb Hct MCV MCH MCHC RDW Plt Count MPV Immature Gran % (Auto) Neut % (Auto) Lymph % (Auto) [place] % (Auto) Eos % (Auto) Baso % (Auto) Lymph # (Auto) [place] # (Auto) Eos # (Auto) Baso # (Auto) Abs Immat Gran (auto) Absolute Neuts (auto) Absolute Nucleated RBC Nucleated RBC % (auto) ESR Sodium Potassium Chloride Carbon Dioxide Anion Gap BUN Creatinine Estim Creat Clear Calc Estimated GFR Random Glucose Calcium Total Bilirubin AST ALT Alkaline Phosphatase Troponin I High Sens 100.0 H C-Reactive Protein Total Protein Albumin Lipase Urine Color Urine Appearance Urine pH Ur Specific [place] Urine Protein Urine Glucose (UA) Urine Ketones Urine Blood Urine Nitrite Ur Leukocyte Esterase Urine RBC Urine WBC Ur Squamous Epith Cells Urine Bacteria Urine Test COVID-19 (VERA) Negative COVID-19 aDealio See Note ECG Attestation: I personally reviewed and interpreted this ECG as follows: Interpretation: EKG on admission with sinus rhythm at 96/Min; very slight ST elevation in the inferior leads and anterolateral leads. No prior EKGs for comparison. TN interval is mildly prolonged to 252 milliseconds. Imaging Radiologist's impression: Impressions Chest X-Ray 01/17/21 22:48 IMPRESSION: A cause for the patient's chest pain has not been found. The exam is negative aside from a mild biconvex thoracolumbar scoliosis. Assessment and Plan (1) Chest pain: Qualifiers: Chest pain type: precordial pain Qualified Code(s): R07.2 - Precordial pain Status: Acute (2) Pericarditis: Qualifiers: Pericarditis type: associated with systemic lupus erythematosus Chronicity: acute Qualified Code(s): M32.12 - Pericarditis in systemic lupus erythematosus Status: Acute (3) Lupus: Status: Acute (4) Elevated troponin: Status: Acute EKG shows very slight generalized ST elevation that could indicate a pericarditis type pathology. High sensitivity troponins are slightly elevated at 116 and 100. She is also having concurrent flare-up of joint pains as well as elevated inflammatory markers. 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 Need to discuss with rheumatology as to the appropriate therapy as she may need escalation of steroid dose. Otherwise we will get an echocardiogram for cardiac function assessment.
[2021-01-18] MEDS: Morphine Sulfate 2 MG/ML CARTRIDGE IVPUSH (12:01)
[2021-01-18] MEDS: oxyCODONE HCl Immed Release 5 MG TABLET PO (13:31)
[2021-01-18] MEDS: Acetaminophen 325 MG TABLET 650 MG PO (13:31)
--- NOTE | 2021-01-18 14:14 | MHC.CM.PN ---
Met with patient in regards to discharge planning. Patient lives with her and 2 children, ambulates independently, and had no services prior to coming to the hospital. PCP is on [address] in [place]. Dr Mar is her Lupus specialist. HCP completed, signed and witnessed. Original given to patient. Copy placed in chart. Patient became tearful because she has to be admitted to the hospital. Patient requeseting to be discharged home. T/W reached out to Dr Sorensen. Dr Sorensen doesn't feel patient is ready for discharge. Patient has transportation at discharge. Continue to monitor for d/c needs/
[2021-01-18] MEDS: 0.9 % Sodium Chloride Flush 3 ML SYRINGE IVFLUSH ×2 (16:48→20:44)
[2021-01-18] MEDS: oxyCODONE HCl Immed Release 5 MG TABLET 10 MG PO ×2 (18:01→23:57)
[2021-01-18] MEDS: Zolpidem Tartrate 5 MG TABLET PO (20:57)
[2021-01-19 04:00] VITALS: BP 122/62; PULSE 77; RESP 16; TEMP 37.1; O2SAT 100
[2021-01-19 05:22] LABS: Eosinophils Percent Auto 0.7 % (0-4); Hematocrit 29.6 % (37-47); Hemoglobin 9.3 g/dl (12.0-16.0); Imm Gran Abs Auto 0.02 X10*3/uL (0.00-0.03); Imm Gran Pct Auto 0.5 % (0.0-0.4); Lymphocytes Absolute Auto 1.4 X10*3/uL (1.2-4.9); MANUAL DIFF FLAG SCAN; Mean Corpuscular HGB Conc 31.4 g/dl (31.0-35.0); Mean Corpuscular Hemoglobin 28.4 pg (27.0-33.0); Mean Corpuscular Volume 90.5 fL (80-98); Mean Platelet Volume 10.3 fL (9.4-12.3); Monocytes Absolute Auto 0.4 X10*3/uL (0.1-1.2); Monocytes Percent Auto 9.4 % (2-11); Neutrophils Absolute Auto 2.5 X10*3/uL (2.0-8.3); Neutrophils Percent Auto 57.4 % (45-73); Platelet Count 294 X10*3/uL (160-400); Red Blood Count 3.27 X10*6/uL (4.20-5.50); Red Cell Distribution Width 13.9 % (11.0-16.0); SCAN SMEAR FLAG 1; White Blood Count 4.4 X10*3/uL (4.8-10.8)
[2021-01-19 05:52] LABS: SLIDE REVIEW VERIFIED
[2021-01-19 05:53] LABS: Anion Gap 13 (12-20); Blood Urea Nitrogen 12 mg/dL (9-16); Calcium 8.4 mg/dL (8.4-10.2); Carbon Dioxide 25 mmol/L (22-29); Chloride 105 mmol/L (96-108); Creatinine Clr Calc Pharmacy 105.3; Estimated Glomerular Filt Rate > 60; Glucose Random 94 mg/dL (60-115); Potassium 4.4 mmol/L (3.3-5.1); Sodium 139 mmol/L (135-145)
[2021-01-19] MEDS: oxyCODONE HCl Immed Release 5 MG TABLET 10 MG PO ×2 (06:05→12:01)
[2021-01-19] MEDS: cefTRIAXone sodium 1 GM in 0.9 % Sodium Chloride 50 ML IV (06:05)
[2021-01-19] MEDS: 0.9 % Sodium Chloride Flush 3 ML SYRINGE IVFLUSH (07:50)
[2021-01-19] MEDS: predniSONE 20 MG TABLET PO (07:50)
[2021-01-19 07:52] VITALS: BP 140/66; PULSE 83; RESP 18; TEMP 36.3; O2SAT 100
--- NOTE | 2021-01-19 11:37 | PM.PNCARD ---
Subjective Subjective Date of Service: 01/19/21 Interval history: She states that she feels okay. Review of Systems Review of Systems Yes all other systems are reviewed and are negative Cardiovascular: Reports as per HPI, Reports no additional cardiovascular complaints, Denies acrocyanosis, Denies cool extremities, Denies painful fingertips, Reports chest pain, Reports chest pain at rest, Denies diaphoresis, Denies syncope, Denies irregular heart rhythm, Denies claudication, Denies leg edema, Denies lightheadedness, Denies palpitations and Denies dyspnea Respiratory: Denies dyspnea Denies syncope Endocrine: Denies palpitations Physical Exam Vital Signs: Last Vital Signs Temp 97.3 F 01/19/21 07:52 Pulse 83 01/19/21 07:52 Resp 18 01/19/21 07:52 BP 140/66 H 01/19/21 07:52 Pulse Ox 100 01/19/21 07:52 Body Mass Index 22.7 Const General: cooperative, comfortable and no acute distress Orientation/consciousness: patient oriented x3 HENMT Other: Unremarkable Neck Neck: Yes normal visual inspection Chest Chest palpation & inspection: normal inspection of the chest Resp Auscultation: clear to auscultation bilaterally, no crackles and no wheezes Cardio Jugular venous distension: no JVD Palpation: normal PMI Heart sounds: S1 normal heart sound present, S2 normal heart sound present, no gallops, no murmurs and no rubs GI Palpation (GI): Soft to palpation Back/Spine/Pelvis Other: unremarkable Skin General skin exam: no rashes or lesions noted Neuro General: patient oriented x3 Extrem General: Yes no clubbing, cyanosis or edema Psych Mental Status: mental status grossly normal Results Labs and Meds Result diagrams: 01/19/21 04:22 01/19/21 04:22 Lab results: Laboratory Results - last 24 hr 01/19/21 01/19/21 04:22 04:22 WBC 4.4 L RBC 3.27 L Hgb 9.3 L Hct 29.6 L MCV 90.5 MCH 28.4 MCHC 31.4 RDW 13.9 Plt Count 294 MPV 10.3 Immature Gran % (Auto) 0.5 H Neut % (Auto) 57.4 Lymph % (Auto) 32.0 [place] % (Auto) 9.4 Eos % (Auto) 0.7 Baso % (Auto) 0.0 Lymph # (Auto) 1.4 [place] # (Auto) 0.4 Eos # (Auto) 0.0 Baso # (Auto) 0.0 Abs Immat Gran (auto) 0.02 Absolute Neuts (auto) 2.5 Absolute Nucleated RBC 0.000 Nucleated RBC % (auto) 0.0 Smear Tech's Comments VERIFIED Sodium 139 Potassium 4.4 Chloride 105 Carbon Dioxide 25 Anion Gap 13 BUN 12 Creatinine 0.78 Estim Creat Clear Calc 105.3 Estimated GFR > 60 Random Glucose 94 Calcium 8.4 D Progress Note: A&P Assessment and plan (1) Chest pain: Status: Acute (2) Pericarditis: Status: Acute (3) Lupus: Status: Acute (4) Elevated troponin: Status: Acute Assessment and Plan: EKG shows very slight generalized ST elevation that could indicate a pericarditis type pathology. High sensitivity troponins are slightly elevated at 116 and 100. She is also having concurrent flare-up of joint pains as well as elevated inflammatory markers. 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 Need to discuss with rheumatology as to the appropriate therapy as she may need escalation of steroid dose. Echocardiogram without any significant structural abnormalities or pericardial effusion. Fall Risk Details Current Medications: Current Medications Generic Name Dose Route Start Last Admin Trade Name Freq PRN Reason Stop Dose Admin Acetaminophen 650 mg 01/18/21 05:08 01/18/21 13:31 Acetaminophen 325 Mg Tablet PO 650 mg Q6H PRN Administration Pain, Mild (Pain Scale 1-3) Docusate Sodium 100 mg 01/18/21 05:08 Docusate Sodium 100 Mg Capsule PO DAILY PRN Constipation Ceftriaxone Sodium 1 gm/ 50 mls @ 100 mls/hr 01/19/21 06:00 01/19/21 06:37 Sodium Chloride IV Infused Q24H [facility] Infusion Ondansetron HCl 4 mg 01/18/21 05:08 Ondansetron Hcl 4 Mg/2 Ml Vial IVPUSH Q8H PRN Nausea and Vomiting Oxycodone HCl 10 mg 01/18/21 17:21 01/19/21 06:05 Oxycodone Hcl Immed Release 5 Mg Tablet PO 10 mg Q6H PRN Administration Pain, Severe (Pain Scale 7-10) Pharmacy Consult 1 each 01/18/21 07:07 Consult Rx Perform Med Rec MISCELLANE ONCE PRN Consult order Prednisone 20 mg 01/18/21 09:00 01/19/21 07:50 Prednisone 20 Mg Tablet PO 20 mg DAILY [facility] Administration Sodium Chloride 3 ml 01/18/21 08:00 01/19/21 07:50 0.9 % Sodium Chloride Flush 3 Ml Syringe IVFLUSH 3 ml QSHIFT [facility] Administration Time Spent With Patient Time: Total time spent is greater than 50% in coordination of care (as documented) at patient's floor/unit and/or counseling patient: Time with patient: less than 15 minutes
[2021-01-19 12:00] VITALS: BP 136/67; PULSE 87; RESP 18; TEMP 36.5; O2SAT 100
--- NOTE | 2021-01-19 13:07 | P.DS_ITS ---
DS: Providers Provider Date of Service: 01/19/21 Date of admission: 01/18/21 04:24 Primary care physician: Charan Mar MD Consults: 01/18/21 04:33 Consult to Cardiology Routine Consulting Provider: Chaz Cole Reason for consultation: elevated trop, cp, lupus pt, pericarditis? Has provider been notified: No DS: Diagnosis Discharge Diagnosis (1) Chest pain: Status: Acute (2) Pericarditis: Status: Acute (3) Lupus: Status: Acute (4) Elevated troponin: Status: Acute DS: Medications Discharge Medications Home Medications: Home Medications Medication Instructions Recorded Confirmed hydroxychloroquine 300 mg PO DAILY 01/18/21 01/18/21 ibuprofen 1 tab PO TID PRN 01/18/21 01/18/21 prednisone 5 mg PO DAILY@1700 01/18/21 01/18/21 prednisone 7.5 mg PO DAILY 01/18/21 01/18/21 Previous Rx's Medication Instructions Recorded cefuroxime axetil 250 mg PO BID 7 Days #10 tab 01/19/21 prednisone 20 mg PO DAILY #5 tab 01/19/21 DS: Summary Hospital Course Hospital Course: 25-year-old female with past medical history of lupus who presents to the hospital with complaints of chest pain, as well as joint pain and swelling. Patient reports that she has been going through a stressful situation at this time with her mom leaving to moved to [place], causing her a lot of anxiety and depression and that is when her symptoms started. Her symptoms worsened about 3 days ago, flare around the evening with difficulty even walking due to the severe pain she has in her knee joints, wrist joints, elbows, arms all over. She describes the chest pain as choking sensation in her chest, she feels like her heart is about to jump out of her chest, similar to a panic attack, she points to the pain in the center of her chest radiating to her throat, not associated with any shortness of breath, although reports that her breathing was funny today. She denies any fever chills, no abdominal pain nausea or vomiting, no diarrhea constipation, no urinary symptoms and no lower extremity edema. On arrival to the ED No significant abnormal vitals Labs are significant for WBC count of 5.4, hemoglobin of 10.2, ESR 48, CRP of 0.89, troponin of 116 decreased to 100, UA that is positive for nitrites with no leukocytosis, chest x-ray negative. EKG showed first-degree AV block with no other abnormalities Hospital course: This patient was diagnosed with lupus in 2014 and has been on Plaquenil and the prednisone she is supposed to be taking 7.5 mg in the morning and 5 mg in the afternoon but she states that she has been taking only the morning dose. She presented with chest pain as well as joint ache and was found to have pericarditis on the clinical grounds her cardiac troponin was slightly elevated. She had an echocardiogram that she did not reveal any significant pericardial effusion. She was evaluated by Cardiology and thought that she was suffering for acute pericarditis. She has been on steroid at increased dose of 20 mg and has gotten significantly much better. I attempted to reach her stave machine tender Dr. Green at [facility] in [place] but could not get through the call. The patient at this point is interested in switching stave machine tender to [facility] rheumatology. I have instructed her to take prednisone 20 mg for the next 5 days before returning to her usual dose. Her joint pain seemed much better today with less swollen Time Spent with Patient Time attestation: Total time spent providing and/or coordinating discharge services: Discharge coordination time: Greater than 30 minutes Physical Exam Vital Signs: Vital Signs: Last Vital Signs Temp 97.7 F 01/19/21 12:00 Pulse 87 01/19/21 12:00 Resp 18 01/19/21 12:00 BP 136/67 01/19/21 12:00 Pulse Ox 100 01/19/21 12:00 Body Mass Index 22.7 Constitutional Awake and Alert, No apparent distress Neck Supple, No lymphadenopathy Cardiovascular RRR, No M/R/G, S1 S2, No S3 S4, No pedal edema Respiratory Lungs clear, No respiratory distress Gastrointestinal Non tender, Non-distended Skin No rash MulSK: has some finger joint tenderness and swelling but she says this is better Neurological Alert & oriented x3 Psychological Appropriate affect DS: Data Data Completed and Pending Labs on day of discharge: Laboratory Results - last 24 hr 01/19/21 01/19/21 04:22 04:22 WBC 4.4 L RBC 3.27 L Hgb 9.3 L Hct 29.6 L MCV 90.5 MCH 28.4 MCHC 31.4 RDW 13.9 Plt Count 294 MPV 10.3 Immature Gran % (Auto) 0.5 H Neut % (Auto) 57.4 Lymph % (Auto) 32.0 [place] % (Auto) 9.4 Eos % (Auto) 0.7 Baso % (Auto) 0.0 Lymph # (Auto) 1.4 [place] # (Auto) 0.4 Eos # (Auto) 0.0 Baso # (Auto) 0.0 Abs Immat Gran (auto) 0.02 Absolute Neuts (auto) 2.5 Absolute Nucleated RBC 0.000 Nucleated RBC % (auto) 0.0 Smear Tech's Comments VERIFIED Sodium 139 Potassium 4.4 Chloride 105 Carbon Dioxide 25 Anion Gap 13 BUN 12 Creatinine 0.78 Estim Creat Clear Calc 105.3 Estimated GFR > 60 Random Glucose 94 Calcium 8.4 D Discharge Plan Discharge Anticipated Discharge Date/Time: 01/19/21 13:01 Patient Disposition: Home, Self-Care Discharge Diagnosis: UTI, Lupus related pericarditis Referrals: Charan Mar MD [Primary Care Provider] - 1 Week Discharge Medications: New prednisone 20 mg Tablet 20 mg PO DAILY Qty: 5 RF: 0 cefuroxime axetil 250 mg tablet 250 mg PO BID 7 Days Qty: 10 RF: 0 Continued prednisone 2.5 mg tablet 7.5 mg PO DAILY RF: 0 prednisone 2.5 mg tablet 5 mg PO DAILY@1700 RF: 0 ibuprofen 400 mg tablet 1 tab PO TID PRN (Reason: Pain, Moderate) RF: 0 hydroxychloroquine 200 mg tablet 300 mg PO DAILY RF: 0 Discharge Orders: Discharge Order (Routine); Ordered 01/19/21 Ordered By: Gonzalez Sorensen Diet: advance to usual diet Activity on Discharge: As tolerated Stand Alone Forms: Patient Portal Discharge page Care Plan Goals: Prevent further flare of Lupus and pericarditis Health Concerns: Lupus Plan of Treatment: Take Prednisone 20 mg daily for next 5 days, then return to your usual dose Follow up with Rheumatology Take Cefuroxime for UTI Assessment: See above
[2021-01-23 15:22] LABS: ANA Pattern 2 Nuclear, Homogeneous; Anti Nuclear Antibody Screen POSITIVE (NEGATIVE); Anti Nuclear Antibody Titer > OR = 1:1280 titer
== END 2021-01-19 14:04 | disposition home or self-care (01) | DRG 346 ==
LOC: HO.ED 01-18 03:13 → HO.EDOVER 01-18 04:30 → HO.S3 01-18 14:42
PROVIDERS: Admitting Provider Internal Medicine; Emergency Provider Student in an Organized Health Care Education/Training Program; PCP Internal Medicine Rheumatology; Visit Provider Internal Medicine
DX: M32.12 Pericarditis in systemic lupus erythematosus (principal); F17.210 Nicotine dependence, cigarettes, uncomplicated; M32.9 Systemic lupus erythematosus, unspecified; N39.0 Urinary tract infection, site not specified; Z71.6 Tobacco abuse counseling; Z20.822 Contact with and (suspected) exposure to COVID-19; Z79.1 Long term (current) use of non-steroidal anti-inflammatories (NSAID); Z79.52 Long term (current) use of systemic steroids; Z79.899 Other long term (current) drug therapy
CPT/HCPCS: 36415; 71046; 76700; 80048; 80053; 81001; 81003; 81025; 83690; 84484; 85025; 85652; 86038; 86039; 86140; 87086; 87088; 87186; 87635; 93005; 93306; 96365; 96375; 99218; 99285; J0696; J1885; J2270; Q0163

== ENCOUNTER 2021-04-29 17:01 | Emergency (ER) | payer OTHER, SELFPAY ==
--- NOTE | ~2021-04-29 | XR_ITS ---
EXAMINATION: XR CHEST CLINICAL INFORMATION: Chest pain. COMPARISON: Most recent chest radiograph dated 01/17/2021. TECHNIQUE: Frontal view of the chest was obtained. FINDINGS: The lungs are clear. The cardiomediastinal silhouette is normal in size. There is no pleural effusion or pneumothorax. No acute osseous abnormality. XR/XR chest 1V IMPRESSION: No acute cardiopulmonary findings.
[2021-04-29 17:08] VITALS: BP 140/70; PULSE 105; PULSE 110; RESP 18; TEMP 36.9; O2SAT 99; BMI 24.2
--- NOTE | 2021-04-29 18:57 | ED_ITS ---
HPI - General Adult General Chief complaint: General Medical Stated complaint: body pain/ cough Time Seen by Provider: 04/29/21 17:23 Source: patient Mode of arrival: ambulatory Limitations: no limitations History of Present Illness HPI narrative: 26 y/o female with history of lupus on prednisone, plaquenil, & recently started Imuran and history of pericarditis in January 2021 (normal ECHO) who presents to the ER from home via EMS with dry cough, body and joint aches and pains as well as worsening chest pains for the last 2-3 days. She reports taking tylenol with codiene this morning with only mild, brief relief. She has headaches and body aches. She is not vaccinated against COVID. She has had no sick contacts that she is aware of. No fever or chills. No N/V/D or abdominal pain. She reports seeing her Phonograph Cartridge Assembler 2 weeks ago and getting started on Imuran. She was supposed to be taking 20 mg of prednisone per day but she has been only taking 10 mg. She reports her pain gets worse whenever she does too much activity. MD complaint: body aches and chest pain Onset (ago): day(s) Location: head, neck, chest, back, left, right, upper extremity and lower extremity Radiation: non-radiation Severity: severe Severity scale (1-10): 10 Quality: stabbing and aching Pain Consistency: constant Relieving factors: immobilization and medication Exacerbating factors: movement Associated symptoms: chest pain, cough, headaches and loss of appetite Treatments prior to arrival: none Related Data Home Medications Medication Instructions Recorded Confirmed hydroxychloroquine 200 mg tablet 300 mg PO DAILY 01/18/21 01/18/21 ibuprofen 400 mg tablet 1 tab PO TID PRN 01/18/21 01/18/21 prednisone 2.5 mg tablet 5 mg PO DAILY@1700 01/18/21 01/18/21 prednisone 2.5 mg tablet 7.5 mg PO DAILY 01/18/21 01/18/21 Previous Rx's Medication Instructions Recorded cefuroxime axetil 250 mg tablet 250 mg PO BID 7 Days #10 tab 01/19/21 prednisone 20 mg tablet 20 mg PO DAILY #5 tab 01/19/21 colchicine 0.6 mg tablet 0.6 mg PO BID #30 tab 04/29/21 ibuprofen 600 mg tablet 600 mg PO Q8H #30 tab 04/29/21 Allergies Allergy/AdvReac Type Severity Reaction Status Date / Time No Known Allergies Allergy Verified 01/17/21 18:57 Review of Systems Constitutional: Constitutional: Denies chills, Reports fatigue, Denies fever(s), Reports headache(s) and Denies weakness Eyes: Eyes: Reports no additional eye complaints ENT: Denies dizziness, Reports headache(s), Denies nasal congestion and Reports neck pain Cardiovascular: Cardiovascular: Reports chest pain, Reports chest pain at rest, Denies rapid heart rate, Reports claudication, Denies lightheadedness, Denies dyspnea, Denies dyspnea on exertion and Denies orthopnea Respiratory: Respiratory: Denies chest congestion, Reports cough, Denies hemoptysis, Reports pain with cough, Denies dyspnea, Denies dyspnea on exertion and Denies wheezing Gastrointestinal: Gastrointestinal: Denies abdominal pain, Denies diarrhea, Denies nausea and Denies vomiting Genitourinary: Genitourinary: Denies dysuria Musculoskeletal: Musculoskeletal: Reports back pain, Reports myalgias, Reports arthralgias, Reports joint swelling and Reports neck pain Neurologic: Denies dizziness, Reports headache(s) and Denies weakness Psychiatric: Psychiatric: Reports anxiety and Reports depression Endocrine: Endocrine: Reports fatigue Hematologic/Lymphatic: Hematologic/Lymphatic: Denies easy bleeding, Denies easy bruising and Denies lymphadenopathy Allergic/Immunologic: Allergic/Immunologic: Denies wheezing PMFSH Past Medical History Attestation statement: The following information was validated with the patient. Medical History Lupus Social History Social History Household Members: Spouse, Family and Children Housing: Apartment Do you presently have visiting nurse or other home services: Yes Alcohol intake: never Patient Tobacco Use Status: Current everyday Tobacco user Cigarette Packs Per Day: 0.5 Cigarettes Per Day: 10.0 Years Smoked: 7 Use of substances other than those prescribed or required for medical reasons: Yes Substance Use Type: Marijuana Advance Directives: Yes Advance Directives on File: Yes Advance Directives Date on File: 01/18/21 Patient : No service: No Current occupational status: disabled Physical Exam Vital Signs: Vital Signs: Last Vital Signs Temp 97.9 F 04/29/21 21:51 Pulse 74 04/29/21 21:51 Resp 19 04/29/21 21:51 BP 141/67 H 04/29/21 21:51 Pulse Ox 99 04/29/21 21:51 Body Mass Index 24.2 Appearance: Alert. Oriented X3. No acute distress. Eyes: Pupils equal, round and reactive to light. ENT: Pharynx normal. Neck: Normal inspection. Neck supple. CVS: Normal heart rate and rhythm. Pulses normal. Normal S1/S2. No rub or murmur. Respiratory: No respiratory distress. Breath sounds normal. Chest wall tenderness throughout. Abdomen: Soft and nontender. +BS x4 Skin: Skin warm and dry. Normal skin color. Normal skin turgor. No rashes. Extremities: No lower extremity edema. Left wrist with swelling and tenderness, limited ROM, no warmth or skin changes. Neuro: Oriented X 3. No motor deficit. No sensory deficit. Course Course Course Narrative: 26 y/o female with histor y of lupus and recent pericarditis presenting with body aches, joint pains, dry cough and chest pain. Slightly tachycardic on arrival 105, c/o 10/10 pain. Concern for recurrent pericarditis, concern for possible viral etiology vs lupus flare. Will check EKG, troponin, basic labs. NSAID and tylenol ordered for pain. Will get full respiratory PCR. Reevaluation(s) Reevaluation #1: Troponin 99 --> 108. Inflammatory markers are not as elevated as they were in January when she had pericarditis. Her chest pain is almost resolved. She feels much better and would like to go home. Her EKG has no ischemic changes. Spoke with Dr. Cole who agrees patient can be discharged home with treatment for pericarditis. Will start colchicine and ibuprofen. She will call her Phonograph Cartridge Assembler tomorrow morning for follow up. She will return to the ER if symptoms worsen. Consultations Consultation #1: Cardiology - Dr. Cole Medical Decision Making Lab Data Result diagrams: 04/29/21 19:36 04/29/21 19:36 Labs: Lab Results 04/29/21 04/29/21 04/29/21 Range/Units 19:36 19:36 19:36 WBC 4.5 L (4.8-10.8) X10*3/uL RBC 3.33 L (4.20-5.50) X10*6/uL Hgb 9.3 L (12.0-16.0) g/dl Hct 29.4 L (37-47) % MCV 88.3 (80-98) fL MCH 27.9 (27.0-33.0) pg MCHC 31.6 (31.0-35.0) g/dl RDW 15.4 (11.0-16.0) % Plt Count 238 (160-400) X10*3/uL MPV 9.7 (9.4-12.3) fL Immature Gran % (Auto) 0.7 H (0.0-0.4) % Neut % (Auto) 65.8 (45-73) % Lymph % (Auto) 27.3 (20-40) % [place] % (Auto) 6.0 (2-11) % Eos % (Auto) 0.0 (0-4) % Baso % (Auto) 0.2 (0-2) % Lymph # (Auto) 1.2 (1.2-4.9) X10*3/uL [place] # (Auto) 0.3 (0.1-1.2) X10*3/uL Eos # (Auto) 0.0 (0.0-0.4) X10*3/uL Baso # (Auto) 0.0 (0.0-0.2) X10*3/uL Abs Immat Gran (auto) 0.03 (0.00-0.03) X10*3/uL Absolute Neuts (auto) 3.0 (2.0-8.3) X10*3/uL Absolute Nucleated RBC 0.000 (0.0-0.012) X10*3/uL Nucleated RBC % (auto) 0.0 (0.0-0.2) /100WBC ESR (0-20) MM/HR Sodium 138 (135-145) mmol/L Potassium 4.2 (3.3-5.1) mmol/L Chloride 104 (96-108) mmol/L Carbon Dioxide 25 (22-29) mmol/L Anion Gap 13 (12-20) BUN 13 (9-16) mg/dL Creatinine 0.82 (0.5-1.4) mg/dL Estim Creat Clear Calc 95.5 Estimated GFR > 60 Random Glucose 89 (60-115) mg/dL Calcium 9.0 D (8.4-10.2) mg/dL Magnesium 2.0 (1.6-2.6) mg/dL Total Bilirubin 0.5 (0.0-1.0) mg/dL Direct Bilirubin < 0.2 (0.0-0.5) mg/dL AST 20 (5-31) U/L ALT 9 (0-31) U/L Alkaline Phosphatase 31 L D (39-117) U/L Total Creatine Kinase (26-140) U/L Troponin I High Sens (<3.5-17.0) ng/L C-Reactive Protein 0.60 H (< or = 0.50) mg/dL Total Protein 7.5 (6.5-8.0) g/dL Albumin 3.8 (3.5-5.0) g/dL Urine Color Urine Appearance Urine pH (5.0-8.0) Ur Specific [place] (1.005-1.025) Urine Protein (NEG-TRACE) MG/DL Urine Glucose (UA) (NEG) MG/DL Urine Ketones (NEG) MG/DL Urine Blood (NEG) Urine Nitrite (NEG) Ur Leukocyte Esterase (NEG) Urine RBC (0) /HPF Urine WBC (0-4) /HPF Ur Squamous Epith Cells /LPF Urine Bacteria /LPF Hyaline Casts /LPF Urine Mucus /LPF Urine Test (NEGATIVE) Respiratory Panel Rasheed Adenovirus (Rapid PCR) (Not Detect.) B.pert (TEM-PCR) (Not Detect.) B.parapertussis DNA PCR (Not Detect.) C. pneumoniae DNA (PCR) (Not Detect.) Coronavirus OC43 (PCR) (Not Detect.) Coronavirus HKU1 (PCR) (Not Detect.) Coronavirus 229E (PCR) (Not Detect.) COVID-19 (VERA) Negative (Negative) COVID-19 Clin Com See Note Coronavirus NL63 (PCR) (Not Detect.) Human Metapneumovir PCR (Not Detect.) Influenza A (RT-PCR) (Not Detect.) Influenza B (RT-PCR) (Not Detect.) M. pneumoniae (PCR) (Not Detect.) Parainfluenza 1 (PCR) (Not Detect.) Parainfluenza 2 (PCR) (Not Detect.) Parainfluenza 3 (PCR) (Not Detect.) Parainfluenza 4 (PCR) (Not Detect.) RSV (PCR) (Not Detect.) Entero/Rhino (PCR) (Not Detect.) SARS-CoV-2 RNA (RT-PCR) (Not Detect.) 04/29/21 04/29/21 04/29/21 Range/Units 19:36 19:36 19:36 WBC (4.8-10.8) X10*3/uL RBC (4.20-5.50) X10*6/uL Hgb (12.0-16.0) g/dl Hct (37-47) % MCV (80-98) fL MCH (27.0-33.0) pg MCHC (31.0-35.0) g/dl RDW (11.0-16.0) % Plt Count (160-400) X10*3/uL MPV (9.4-12.3) fL Immature Gran % (Auto) (0.0-0.4) % Neut % (Auto) (45-73) % Lymph % (Auto) (20-40) % [place] % (Auto) (2-11) % Eos % (Auto) (0-4) % Baso % (Auto) (0-2) % Lymph # (Auto) (1.2-4.9) X10*3/uL [place] # (Auto) (0.1-1.2) X10*3/uL Eos # (Auto) (0.0-0.4) X10*3/uL Baso # (Auto) (0.0-0.2) X10*3/uL Abs Immat Gran (auto) (0.00-0.03) X10*3/uL Absolute Neuts (auto) (2.0-8.3) X10*3/uL Absolute Nucleated RBC (0.0-0.012) X10*3/uL Nucleated RBC % (auto) (0.0-0.2) /100WBC ESR 25 H (0-20) MM/HR Sodium (135-145) mmol/L Potassium (3.3-5.1) mmol/L Chloride (96-108) mmol/L Carbon Dioxide (22-29) mmol/L Anion Gap (12-20) BUN (9-16) mg/dL Creatinine (0.5-1.4) mg/dL Estim Creat Clear Calc Estimated GFR Random Glucose (60-115) mg/dL Calcium (8.4-10.2) mg/dL Magnesium (1.6-2.6) mg/dL Total Bilirubin (0.0-1.0) mg/dL Direct Bilirubin (0.0-0.5) mg/dL AST (5-31) U/L ALT (0-31) U/L Alkaline Phosphatase (39-117) U/L Total Creatine Kinase 51 (26-140) U/L Troponin I High Sens 99.2 H* (<3.5-17.0) ng/L C-Reactive Protein (< or = 0.50) mg/dL Total Protein (6.5-8.0) g/dL Albumin (3.5-5.0) g/dL Urine Color Urine Appearance Urine pH (5.0-8.0) Ur Specific [place] (1.005-1.025) Urine Protein (NEG-TRACE) MG/DL Urine Glucose (UA) (NEG) MG/DL Urine Ketones (NEG) MG/DL Urine Blood (NEG) Urine Nitrite (NEG) Ur Leukocyte Esterase (NEG) Urine RBC (0) /HPF Urine WBC (0-4) /HPF Ur Squamous Epith Cells /LPF Urine Bacteria /LPF Hyaline Casts /LPF Urine Mucus /LPF Urine Test (NEGATIVE) Respiratory Panel Rasheed Adenovirus (Rapid PCR) (Not Detect.) B.pert (TEM-PCR) (Not Detect.) B.parapertussis DNA PCR (Not Detect.) C. pneumoniae DNA (PCR) (Not Detect.) Coronavirus OC43 (PCR) (Not Detect.) Coronavirus HKU1 (PCR) (Not Detect.) Coronavirus 229E (PCR) (Not Detect.) COVID-19 (VERA) (Negative) COVID-19 Clin Com Coronavirus NL63 (PCR) (Not Detect.) Human Metapneumovir PCR (Not Detect.) Influenza A (RT-PCR) (Not Detect.) Influenza B (RT-PCR) (Not Detect.) M. pneumoniae (PCR) (Not Detect.) Parainfluenza 1 (PCR) (Not Detect.) Parainfluenza 2 (PCR) (Not Detect.) Parainfluenza 3 (PCR) (Not Detect.) Parainfluenza 4 (PCR) (Not Detect.) RSV (PCR) (Not Detect.) Entero/Rhino (PCR) (Not Detect.) SARS-CoV-2 RNA (RT-PCR) (Not Detect.) 04/29/21 04/29/21 04/29/21 Range/Units 21:49 22:03 22:03 WBC (4.8-10.8) X10*3/uL RBC (4.20-5.50) X10*6/uL Hgb (12.0-16.0) g/dl Hct (37-47) % MCV (80-98) fL MCH (27.0-33.0) pg MCHC (31.0-35.0) g/dl RDW (11.0-16.0) % Plt Count (160-400) X10*3/uL MPV (9.4-12.3) fL Immature Gran % (Auto) (0.0-0.4) % Neut % (Auto) (45-73) % Lymph % (Auto) (20-40) % [place] % (Auto) (2-11) % Eos % (Auto) (0-4) % Baso % (Auto) (0-2) % Lymph # (Auto) (1.2-4.9) X10*3/uL [place] # (Auto) (0.1-1.2) X10*3/uL Eos # (Auto) (0.0-0.4) X10*3/uL Baso # (Auto) (0.0-0.2) X10*3/uL Abs Immat Gran (auto) (0.00-0.03) X10*3/uL Absolute Neuts (auto) (2.0-8.3) X10*3/uL Absolute Nucleated RBC (0.0-0.012) X10*3/uL Nucleated RBC % (auto) (0.0-0.2) /100WBC ESR (0-20) MM/HR Sodium (135-145) mmol/L Potassium (3.3-5.1) mmol/L Chloride (96-108) mmol/L Carbon Dioxide (22-29) mmol/L Anion Gap (12-20) BUN (9-16) mg/dL Creatinine (0.5-1.4) mg/dL Estim Creat Clear Calc Estimated GFR Random Glucose (60-115) mg/dL Calcium (8.4-10.2) mg/dL Magnesium (1.6-2.6) mg/dL Total Bilirubin (0.0-1.0) mg/dL Direct Bilirubin (0.0-0.5) mg/dL AST (5-31) U/L ALT (0-31) U/L Alkaline Phosphatase (39-117) U/L Total Creatine Kinase (26-140) U/L Troponin I High Sens (<3.5-17.0) ng/L C-Reactive Protein (< or = 0.50) mg/dL Total Protein (6.5-8.0) g/dL Albumin (3.5-5.0) g/dL Urine Color YELLOW Urine Appearance HAZY Urine pH 6.0 (5.0-8.0) Ur Specific [place] >= 1.030 H (1.005-1.025) Urine Protein 3+ H (NEG-TRACE) MG/DL Urine Glucose (UA) NEG (NEG) MG/DL Urine Ketones 5 (NEG) MG/DL Urine Blood 2+ H (NEG) Urine Nitrite NEG (NEG) Ur Leukocyte Esterase NEG (NEG) Urine RBC 10-14 H (0) /HPF Urine WBC 0 (0-4) /HPF Ur Squamous Epith Cells 1+ /LPF Urine Bacteria TRACE /LPF Hyaline Casts 0-2 /LPF Urine Mucus 4+ /LPF Urine Test NEGATIVE (NEGATIVE) Respiratory Panel Rasheed See Note Adenovirus (Rapid PCR) Not Detected (Not Detect.) B.pert (TEM-PCR) Not Detected (Not Detect.) B.parapertussis DNA PCR Not Detected (Not Detect.) C. pneumoniae DNA (PCR) Not Detected (Not Detect.) Coronavirus OC43 (PCR) Not Detected (Not Detect.) Coronavirus HKU1 (PCR) Not Detected (Not Detect.) Coronavirus 229E (PCR) Not Detected (Not Detect.) COVID-19 (VERA) (Negative) COVID-19 Clin Com Coronavirus NL63 (PCR) Not Detected (Not Detect.) Human Metapneumovir PCR Not Detected (Not Detect.) Influenza A (RT-PCR) Not Detected (Not Detect.) Influenza B (RT-PCR) Not Detected (Not Detect.) M. pneumoniae (PCR) Not Detected (Not Detect.) Parainfluenza 1 (PCR) Not Detected (Not Detect.) Parainfluenza 2 (PCR) Not Detected (Not Detect.) Parainfluenza 3 (PCR) Not Detected (Not Detect.) Parainfluenza 4 (PCR) Not Detected (Not Detect.) RSV (PCR) Not Detected (Not Detect.) Entero/Rhino (PCR) Not Detected (Not Detect.) SARS-CoV-2 RNA (RT-PCR) Not Detected (Not Detect.) 04/29/21 Range/Units 22:53 WBC (4.8-10.8) X10*3/uL RBC (4.20-5.50) X10*6/uL Hgb (12.0-16.0) g/dl Hct (37-47) % MCV (80-98) fL MCH (27.0-33.0) pg MCHC (31.0-35.0) g/dl RDW (11.0-16.0) % Plt Count (160-400) X10*3/uL MPV (9.4-12.3) fL Immature Gran % (Auto) (0.0-0.4) % Neut % (Auto) (45-73) % Lymph % (Auto) (20-40) % [place] % (Auto) (2-11) % Eos % (Auto) (0-4) % Baso % (Auto) (0-2) % Lymph # (Auto) (1.2-4.9) X10*3/uL [place] # (Auto) (0.1-1.2) X10*3/uL Eos # (Auto) (0.0-0.4) X10*3/uL Baso # (Auto) (0.0-0.2) X10*3/uL Abs Immat Gran (auto) (0.00-0.03) X10*3/uL Absolute Neuts (auto) (2.0-8.3) X10*3/uL Absolute Nucleated RBC (0.0-0.012) X10*3/uL Nucleated RBC % (auto) (0.0-0.2) /100WBC ESR (0-20) MM/HR Sodium (135-145) mmol/L Potassium (3.3-5.1) mmol/L Chloride (96-108) mmol/L Carbon Dioxide (22-29) mmol/L Anion Gap (12-20) BUN (9-16) mg/dL Creatinine (0.5-1.4) mg/dL Estim Creat Clear Calc Estimated GFR Random Glucose (60-115) mg/dL Calcium (8.4-10.2) mg/dL Magnesium (1.6-2.6) mg/dL Total Bilirubin (0.0-1.0) mg/dL Direct Bilirubin (0.0-0.5) mg/dL AST (5-31) U/L ALT (0-31) U/L Alkaline Phosphatase (39-117) U/L Total Creatine Kinase (26-140) U/L Troponin I High Sens 108.5 H* (<3.5-17.0) ng/L C-Reactive Protein (< or = 0.50) mg/dL Total Protein (6.5-8.0) g/dL Albumin (3.5-5.0) g/dL Urine Color Urine Appearance Urine pH (5.0-8.0) Ur Specific [place] (1.005-1.025) Urine Protein (NEG-TRACE) MG/DL Urine Glucose (UA) (NEG) MG/DL Urine Ketones (NEG) MG/DL Urine Blood (NEG) Urine Nitrite (NEG) Ur Leukocyte Esterase (NEG) Urine RBC (0) /HPF Urine WBC (0-4) /HPF Ur Squamous Epith Cells /LPF Urine Bacteria /LPF Hyaline Casts /LPF Urine Mucus /LPF Urine Test (NEGATIVE) Respiratory Panel Rasheed Adenovirus (Rapid PCR) (Not Detect.) B.pert (TEM-PCR) (Not Detect.) B.parapertussis DNA PCR (Not Detect.) C. pneumoniae DNA (PCR) (Not Detect.) Coronavirus OC43 (PCR) (Not Detect.) Coronavirus HKU1 (PCR) (Not Detect.) Coronavirus 229E (PCR) (Not Detect.) COVID-19 (VERA) (Negative) COVID-19 Clin Com Coronavirus NL63 (PCR) (Not Detect.) Human Metapneumovir PCR (Not Detect.) Influenza A (RT-PCR) (Not Detect.) Influenza B (RT-PCR) (Not Detect.) M. pneumoniae (PCR) (Not Detect.) Parainfluenza 1 (PCR) (Not Detect.) Parainfluenza 2 (PCR) (Not Detect.) Parainfluenza 3 (PCR) (Not Detect.) Parainfluenza 4 (PCR) (Not Detect.) RSV (PCR) (Not Detect.) Entero/Rhino (PCR) (Not Detect.) SARS-CoV-2 RNA (RT-PCR) (Not Detect.) ECG Data Attestation: I personally reviewed and interpreted this ECG as follows: Prior ECG tracings: available for review Interpretation: normal sinus rhythm ,R 72 bpm, AL interval is normal 128 ms, normal QTc, no ST segment elevations or depressions Scores Heart Score History: -0- slightly suspicious ECG: -0- normal Age: -0- < or = 45 Risk factory: -0- no risk factors known Troponin: -2- > or = 3x normal limit Score: 2 Risk: 1.7% [place] PE Heart rate > 100 p/min: 1.5 Score: 1.5 2-tier Risk: unlikely risk (5%) 3-tier Risk: low risk (3.4%) Discharge Plan Discharge Clinical Impression: Lupus Pericarditis Qualifiers: Pericarditis type: associated with systemic lupus erythematosus Chronicity: acute Qualified Code(s): M32.12 - Pericarditis in systemic lupus erythematosus Patient Disposition: Home, Self-Care Instructions: Lupus Erythematosus (DC), Acute Pericarditis (ED) Additional Instructions: You are being started on 2 new medications for inflammation around your heart. Two week supply was sent to your pharmacy. You will need to follow up with your Phonograph Cartridge Assembler KIM. These medications will likely need to be continued for longer than 2 week. Continue taking all of your other previously prescribed mediations as directed. Rest. No strenuous activity. Stay hydrated. Do your best to stop smoking. Take Tylenol 650-975 mg as needed for pain every 6 hours. If you develop new or worsening symptoms call 911 or come back to the ER for further evaluation. Prescriptions: New ibuprofen 600 mg tablet 600 mg PO Q8H Qty: 30 RF: 0 colchicine 0.6 mg tablet 0.6 mg PO BID Qty: 30 RF: 0 No Action prednisone 2.5 mg tablet 7.5 mg PO DAILY RF: 0 prednisone 2.5 mg tablet 5 mg PO DAILY@1700 RF: 0 ibuprofen 400 mg tablet 1 tab PO TID PRN (Reason: Pain, Moderate) RF: 0 hydroxychloroquine 200 mg tablet 300 mg PO DAILY RF: 0 prednisone 20 mg Tablet 20 mg PO DAILY Qty: 5 RF: 0 cefuroxime axetil 250 mg tablet 250 mg PO BID 7 Days Qty: 10 RF: 0 Referrals: Charan Mar MD [Primary Care Provider] - 1 day
--- NOTE | 2021-04-29 19:14 | ECG_ITS ---
Test Reason : ELEVATED TROP Blood Pressure : / mmHG Vent. Rate : 072 BPM Atrial Rate : 072 BPM P-R Int : 128 ms QRS Dur : 080 ms QT Int : 400 ms P-R-T Axes : 030 062 049 degrees QTc Int : 438 ms Normal sinus rhythm Normal ECG When compared with ECG of 17-JAN-2021 18:24, MA interval has decreased Referred By: Amanda Collazo Electronically Signed By:TI SHERWOOD
[2021-04-29 19:44] LABS: MANUAL DIFF FLAG NO
[2021-04-29 19:47] LABS: Basophils Percent Auto 0.2 % (0-2); Hematocrit 29.4 % (37-47); Hemoglobin 9.3 g/dl (12.0-16.0); Imm Gran Abs Auto 0.03 X10*3/uL (0.00-0.03); Imm Gran Pct Auto 0.7 % (0.0-0.4); Lymphocytes Absolute Auto 1.2 X10*3/uL (1.2-4.9); Lymphocytes Percent Auto 27.3 % (20-40); Mean Corpuscular HGB Conc 31.6 g/dl (31.0-35.0); Mean Corpuscular Hemoglobin 27.9 pg (27.0-33.0); Mean Corpuscular Volume 88.3 fL (80-98); Mean Platelet Volume 9.7 fL (9.4-12.3); Monocytes Absolute Auto 0.3 X10*3/uL (0.1-1.2); Neutrophils Percent Auto 65.8 % (45-73); Platelet Count 238 X10*3/uL (160-400); Red Blood Count 3.33 X10*6/uL (4.20-5.50); Red Cell Distribution Width 15.4 % (11.0-16.0); White Blood Count 4.5 X10*3/uL (4.8-10.8)
[2021-04-29 20:05] LABS: COVID-19 Test Negative (Negative); IDNOW Serial# 9DD0AD1C
[2021-04-29 20:09] LABS: Alanine Aminotransferase 9 U/L (0-31); Albumin Level 3.8 g/dL (3.5-5.0); Alkaline Phosphatase 31 U/L (39-117); Anion Gap 13 (12-20); Aspartate Amino Transferase 20 U/L (5-31); Bilirubin Direct < 0.2 mg/dL (0.0-0.5); Bilirubin Total 0.5 mg/dL (0.0-1.0); Blood Urea Nitrogen 13 mg/dL (9-16); Carbon Dioxide 25 mmol/L (22-29); Chloride 104 mmol/L (96-108); Creatinine Clr Calc Pharmacy 95.5; Estimated Glomerular Filt Rate > 60; Glucose Random 89 mg/dL (60-115); Potassium 4.2 mmol/L (3.3-5.1); Sodium 138 mmol/L (135-145); Total Protein 7.5 g/dL (6.5-8.0)
[2021-04-29 20:31] LABS: Erythrocyte Sedimentation Rate 25 MM/HR (0-20)
[2021-04-29] MEDS: Ketorolac Tromethamine 15 MG/ML VIAL 30 MG IVPUSH (21:16)
--- NOTE | 2021-04-29 21:24 | PC.NURSE ---
patient moved to room 18, this nurse has taken over care
[2021-04-29 21:51] VITALS: BP 141/67; PULSE 74; RESP 19; TEMP 36.6; O2SAT 99
--- NOTE | 2021-04-29 21:55 | PC.NURSE ---
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
[2021-04-29 22:09] LABS: Glucose Urine UA NEG (NEG); Leukocyte Esterase Urine NEG (NEG); Nitrite Urine NEG (NEG); Specific Gravity - Urine >= 1.030 (1.005-1.025); UACC Culture Trigger NO; Urine Blood 2+ (NEG); Urine Ketones 5 MG/DL (NEG); Urine Protein 3+ MG/DL (NEG-TRACE)
[2021-04-29 22:10] LABS: Appearance Urine HAZY; Color Urine YELLOW
[2021-04-29 22:11] LABS: UPreg QC Valid YES; Urine Pregnancy NEGATIVE (NEGATIVE)
[2021-04-29 22:17] LABS: Squamous Epithelial Cell Urine 1+ /LPF; WBC Urine 0 /HPF (0-4)
[2021-04-29 22:18] LABS: Bacteria Urine TRACE /LPF; Hyaline Casts Urine 0-2 /LPF; Mucus Urine 4+ /LPF
--- NOTE | 2021-04-29 23:00 | PC.NURSE ---
called pharmacy for colchicine
[2021-04-29 23:21] LABS: Troponin-I High Sensitivity 99.2 ng/L (<3.5-17.0)
[2021-04-29 23:30] LABS: Troponin-I High Sensitivity 108.5 ng/L (<3.5-17.0)
[2021-04-30] MEDS: Colchicine 0.6 MG TABLET PO (00:25)
[2021-04-30 00:55] LABS: Influenza A PCR NEGATIVE (Negative); Influenza B PCR NEGATIVE (Negative); Resp Syncy Virus RNA Qual PCR NEGATIVE (Negative); SARS COV2 PCR INHOUSE NEGATIVE (Negative)
[2021-04-30 09:08] LABS: Adenovirus PCR Not Detected (Not Detect.); Bordetella parapertussis PCR Not Detected (Not Detect.); Bordetella pertussis PCR Not Detected (Not Detect.); Chlamydia pneumoniae PCR Not Detected (Not Detect.); Coronavirus 229E PCR Not Detected (Not Detect.); Coronavirus HKU1 PCR Not Detected (Not Detect.); Coronavirus NL63 PCR Not Detected (Not Detect.); Coronavirus OC43 PCR Not Detected (Not Detect.); Influenza A PCR Not Detected (Not Detect.); Influenza B PCR Not Detected (Not Detect.); SARS-CoV-2 PCR Not Detected (Not Detect.)
[2021-04-30 09:09] LABS: Human metapneumovirus PCR Not Detected (Not Detect.); Mycoplasma pneumoniae PCR Not Detected (Not Detect.); Parainfluenza 1 PCR Not Detected (Not Detect.); Parainfluenza 2 PCR Not Detected (Not Detect.); Parainfluenza 3 PCR Not Detected (Not Detect.); Parainfluenza 4 PCR Not Detected (Not Detect.); RSV PCR Not Detected (Not Detect.); Rhino/Enterovirus PCR Not Detected (Not Detect.)
== END 2021-04-30 00:27 | disposition home or self-care (01) ==
PROVIDERS: Physician Assistant; Emergency Provider Emergency Medicine; PCP Internal Medicine Rheumatology
DX: M32.12 Pericarditis in systemic lupus erythematosus (principal); M79.10 Myalgia, unspecified site; R05 Cough; Z79.899 Other long term (current) drug therapy; Z20.822 Contact with and (suspected) exposure to COVID-19; F17.210 Nicotine dependence, cigarettes, uncomplicated; Z71.6 Tobacco abuse counseling
CPT/HCPCS: 0241U; 36415; 71045; 80048; 80076; 81001; 81025; 82550; 83735; 84484; 85025; 85652; 86140; 87633; 87635; 93005; 96374; 99284; J1885

== ENCOUNTER 2021-12-04 12:43 | Emergency (ER) | payer OTHER, SELFPAY ==
--- NOTE | ~2021-12-04 | CT_ITS ---
EXAMINATION: CT HEAD WITHOUT CONTRAST CLINICAL INFORMATION: Headache. COMPARISON: None TECHNIQUE: Contiguous axial imaging was performed from the skull base to vertex without intravenous administration of contrast. Coronal and sagittal reformatted images are performed at CT scanner This CT examination was performed using dose optimization techniques as appropriate, variously including the following: *Automated exposure control *Adjustment of mA and/or kV according to patient size (this includes techniques or standardized protocols for targeted exams where dose is matched to indication/reason for exam; i.e. extremities or head) *Use of iterative reconstruction technique DLP: 673 mGy-cm FINDINGS: There is no evidence of acute intracranial hemorrhage or territorial infarction. No abnormal mass effect or midline shift is seen. Vogt to white matter differentiation is well preserved. No extra-axial fluid collections are identified. The ventricles are normal in size. There is no abnormal attenuation within the brain parenchyma. The osseous structures and soft tissues are normal. The mastoid air cells and visualized portions of the paranasal sinuses are well aerated. CT/CT head/brain wo con IMPRESSION: No acute intracranial pathology.
--- NOTE | ~2021-12-04 | XR_ITS ---
EXAMINATION: XR CHEST CLINICAL INFORMATION: Chest pain COMPARISON: None TECHNIQUE: Frontal portable view of the chest was obtained. 8:24 PM FINDINGS: No significant abnormality is noted involving the heart, lungs, mediastinum, bony thorax or soft tissues. XR/XR chest 1V IMPRESSION: Unremarkable examination.
[2021-12-04 13:03] VITALS: BP 155/95; PULSE 105; O2SAT 98
[2021-12-04 13:06] VITALS: BP 135/87; PULSE 100; RESP 19; TEMP 36.6; O2SAT 100; BMI 20.3
--- NOTE | 2021-12-04 19:10 | ECG_ITS ---
Test Reason : HEADACHE/CHEST PAIN Blood Pressure : / mmHG Vent. Rate : 075 BPM Atrial Rate : 075 BPM P-R Int : 122 ms QRS Dur : 080 ms QT Int : 390 ms P-R-T Axes : 039 070 058 degrees QTc Int : 435 ms Normal sinus rhythm Normal ECG When compared with ECG of 29-APR-2021 20:48, No significant change was found Referred By: Keith Walsh Electronically Signed By:Selvin López
--- NOTE | 2021-12-04 19:15 | ED_ITS ---
HPI - Headache General Chief Complaint: Headache Stated Complaint: INCREASED HEADACHES X 3 DAYS Time Seen by Provider: 12/04/21 18:44 Source: patient Mode of arrival: ambulatory Limitations: no limitations History of Present Illness HPI Narrative: 26-year-old female history of lupus and fibromyalgia presents to the ED for headache multiple weeks that has worsened in the past 3 days. Patient denies any recent head trauma. Patient denies any abdominal pain, chills, loss of vision, paralysis of extremities, or dizziness. Patient states mild left-sided chest pain that resolved on its own. Patient denies any photophobia. Patient was referred by mixer operator tablets for evaluation of headaches since July, but patient states she has missed multiple appointments. Patient denies any eye pain, change in vision, loss of vision, leg swelling, calf pain, neck stiffness, fever, coughing, or weakness. Patient is also having pain in all her joints because she ran out of prednisone. Related Data Home Medications Medication Instructions Recorded Confirmed hydroxychloroquine 200 mg tablet 300 mg PO DAILY 01/18/21 01/18/21 ibuprofen 400 mg tablet 1 tab PO TID PRN 01/18/21 01/18/21 prednisone 2.5 mg tablet 5 mg PO DAILY@1700 01/18/21 01/18/21 prednisone 2.5 mg tablet 7.5 mg PO DAILY 01/18/21 01/18/21 Previous Rx's Medication Instructions Recorded cefuroxime axetil 250 mg tablet 250 mg PO BID 7 Days #10 tab 01/19/21 prednisone 20 mg tablet 20 mg PO DAILY #5 tab 01/19/21 colchicine 0.6 mg tablet 0.6 mg PO BID #30 tab 04/29/21 ibuprofen 600 mg tablet 600 mg PO Q8H #30 tab 04/29/21 lbcopjgydc-lqksuuuluujyp-ihktonfc 1 cap PO Q4-6H PRN 5 Days #20 cap 12/05/21 50 mg-300 mg-40 mg capsule (Fioricet) prednisone 20 mg tablet 20 mg PO DAILY 5 Days #5 tab 12/05/21 Allergies Allergy/AdvReac Type Severity Reaction Status Date / Time No Known Allergies Allergy Verified 01/17/21 18:57 Review of Systems Review of Systems: Headache for multiple weeks, worsening the past 3 days, mi resolved chest pain. Yes all other systems are reviewed and are negative PMFSH Past Medical History Medical History (Updated 12/05/21 @ 00:02 by ELLA Dewey) Anxiety Depression Fibromyalgia Lupus Social History Social History Household Members: Spouse, Family and Children Housing: Apartment Do you presently have visiting nurse or other home services: Yes Alcohol intake: never Patient Tobacco Use Status: Current everyday Tobacco user Cigarette Packs Per Day: 0.5 Cigarettes Per Day: 10.0 Years Smoked: 7 Substance Use Type: Marijuana Advance Directives: Yes Advance Directives on File: Yes Advance Directives Date on File: 01/18/21 Patient : No service: No Current occupational status: disabled Physical Exam Vital Signs: Vital Signs: Last Vital Signs Temp 98.1 F 12/04/21 22:26 Pulse 100 12/04/21 22:26 Resp 18 12/04/21 22:26 BP 137/85 12/04/21 23:54 Pulse Ox 100 12/04/21 22:26 BMI result Body Mass Index 20.3 Const: General: cooperative, healthy appearing, comfortable, no acute distress, well developed, alert, awake and Physically active Orientation/consciousness: oriented to time and patient oriented x3 HEENT: Head: Yes normal to inspection, Yes No palpable skull fracture present, Yes normocephalic, Yes atraumatic and No abrasion Ears: hearing grossly normal bilaterally, external ears normal, TM's normal bilaterally, EAC's normal, mastoids normal and no periauricular adenopathy Throat: Yes posterior oropharynx normal, Yes tonsils normal and Yes uvula midline Eyes: Other: Negative photophobia General: appearance normal, both eyes and all related structures Neck: Neck: Yes normal visual inspection, Yes full ROM, Yes no lymphadenopathy, Yes no meningeal signs, Yes trachea midline, Yes supple, No anterior neck swelling and No tender Chest: Chest palpation & inspection: normal inspection of the chest and normal palpation of entire chest wall Resp: Effort & Inspection: normal respiratory effort and able to speak in complete sentences Auscultation: clear to auscultation bilaterally Cardio: Jugular venous distension: no JVD Heart sounds: S1 normal heart sound present and S2 normal heart sound present GI: Inspection: Yes normal to inspection and No abdominal wall ecchymosis Palpation (GI): Soft to palpation, not firm, nontender, no guarding and not rigid : General: No CVA tenderness and Yes no CVA tenderness Back/Spine/Pelvis: Back: no CVA tenderness, No CVA tenderness and No back tenderness Skin: General skin exam: no rashes or lesions noted and elasticity normal Neuro: Other: Negative slurred speech. Negative facial droop. Negative pronator drift. All extremities equal strength 5+. Guplsf-mp-[id number] rapid hand movement intact. Negative Romberg. Negative nystagmus. Negative photophobia. NIH score is 0. General: oriented to time, patient oriented x3, gait normal, no meningeal signs and CN's II-XI intact bilaterally Cranial nerves: Yes CN's II-XII intact bilaterally Extrem: Other: Negative facial droop. Negative slurred speech. Negative pronator drift. All extremities equal strength 5+. Cxflhi-ze-bbcl and rapid hand movement intact. Negative Romberg. Lower extremities negative for swelling, pitting edema, or calf tenderness General: Yes normal to inspection and Yes full ROM Psych: Appearance: grossly normal, well kempt and not disheveled Course Course Course Narrative: EKG labs ordered. Will give medication for headache. Due to history of lupus was sent for head CT scan after negative. Reevaluation(s) Reevaluation #1: Patient's EKG negative STEMI. Patient's troponin are always positive but did not increase by 50%. Head CT normal. Labs at baseline. History and physical exam does not indicate meningitis. History physical exam does not indicate stroke. NIH score 0. Patient just informed me she cannot take NSAIDs as instructed by her human resources administrator. Will discharge with Fioricet and prednisone. Patient states she ran out of her prednisone. Patient will follow up with primary care provider and her mixer operator tablets. Not suspecting any brain bleed. Patient informed to return to the ED immediately if headache worsens. Patient ate sandwich, crackers and drink soda in the ED. Time: 23:48 MDM - Headache MDM Narrative Medical decision making narrative: Lupus flare. Headache. Lab Data Result diagrams: 12/04/21 19:35 12/04/21 19:35 Labs: Lab Results 12/04/21 12/04/21 12/04/21 Range/Units 19:35 19:35 19:35 WBC 4.8 (4.8-10.8) X10*3/uL RBC 3.26 L (4.20-5.50) X10*6/uL Hgb 9.5 L (12.0-16.0) g/dl Hct 31.8 L (37.0-47.0) % MCV 97.5 (80.0-98.0) fL MCH 29.1 (27.0-33.0) pg MCHC 29.9 L (31.0-35.0) g/dl RDW 15.8 (11.0-16.0) % Plt Count 187 (160-400) X10*3/uL MPV 8.9 L (9.4-12.3) fL Immature Gran % (Auto) 2.1 H (0.0-0.4) % Neut % (Auto) 66.9 (45-73) % Lymph % (Auto) 24.6 (20-40) % [place] % (Auto) 6.2 (2-11) % Eos % (Auto) 0.0 (0-4) % Baso % (Auto) 0.2 (0-2) % Lymph # (Auto) 1.2 (1.2-4.9) X10*3/uL [place] # (Auto) 0.3 (0.1-1.2) X10*3/uL Eos # (Auto) 0.0 (0.0-0.4) X10*3/uL Baso # (Auto) 0.0 (0.0-0.2) X10*3/uL Abs Immat Gran (auto) 0.10 H (0.00-0.03) X10*3/uL Absolute Neuts (auto) 3.2 (2.0-8.3) x10*3/uL Absolute Nucleated RBC 0.000 (0.0-0.012) X10*3/uL Nucleated RBC % (auto) 0.0 (0.0-0.2) /100WBC PT 10.5 (9.9-13.0) SEC INR 0.9 (0.9-1.1) APTT 33.8 (24.1-38.0) SEC Sodium 136 (135-145) mmol/L Potassium 3.8 (3.3-5.1) mmol/L Chloride 102 (96-108) mmol/L Carbon Dioxide 26 (22-29) mmol/L Anion Gap 12 (12-20) BUN 12 (9-16) mg/dL Creatinine 0.84 (0.5-1.4) mg/dL Estim Creat Clear Calc 92.7 Estimated GFR > 60 Random Glucose 64 (60-115) mg/dL Calcium 8.0 L D (8.4-10.2) mg/dL Total Bilirubin 0.3 (0.0-1.0) mg/dL AST 21 (5-31) U/L ALT 10 (0-31) U/L Alkaline Phosphatase 39 D (39-117) U/L Troponin I High Sens (<3.5-17.0) ng/L Total Protein 5.7 L D (6.5-8.0) g/dL Albumin 3.1 L (3.5-5.0) g/dL Beta HCG, Quant < 2 mIU/mL Influenza Type A (PCR) (Negative) Influenza Type B (PCR) (Negative) RSV RNA Qual (PCR) (Negative) SARS-CoV-2 RNA (RT-PCR) (Negative) 12/04/21 12/04/21 12/04/21 Range/Units 19:35 20:28 22:37 WBC (4.8-10.8) X10*3/uL RBC (4.20-5.50) X10*6/uL Hgb (12.0-16.0) g/dl Hct (37.0-47.0) % MCV (80.0-98.0) fL MCH (27.0-33.0) pg MCHC (31.0-35.0) g/dl RDW (11.0-16.0) % Plt Count (160-400) X10*3/uL MPV (9.4-12.3) fL Immature Gran % (Auto) (0.0-0.4) % Neut % (Auto) (45-73) % Lymph % (Auto) (20-40) % [place] % (Auto) (2-11) % Eos % (Auto) (0-4) % Baso % (Auto) (0-2) % Lymph # (Auto) (1.2-4.9) X10*3/uL [place] # (Auto) (0.1-1.2) X10*3/uL Eos # (Auto) (0.0-0.4) X10*3/uL Baso # (Auto) (0.0-0.2) X10*3/uL Abs Immat Gran (auto) (0.00-0.03) X10*3/uL Absolute Neuts (auto) (2.0-8.3) x10*3/uL Absolute Nucleated RBC (0.0-0.012) X10*3/uL Nucleated RBC % (auto) (0.0-0.2) /100WBC PT (9.9-13.0) SEC INR (0.9-1.1) APTT (24.1-38.0) SEC Sodium (135-145) mmol/L Potassium (3.3-5.1) mmol/L Chloride (96-108) mmol/L Carbon Dioxide (22-29) mmol/L Anion Gap (12-20) BUN (9-16) mg/dL Creatinine (0.5-1.4) mg/dL Estim Creat Clear Calc Estimated GFR Random Glucose (60-115) mg/dL Calcium (8.4-10.2) mg/dL Total Bilirubin (0.0-1.0) mg/dL AST (5-31) U/L ALT (0-31) U/L Alkaline Phosphatase (39-117) U/L Troponin I High Sens 33.6 H 43.0 H (<3.5-17.0) ng/L Total Protein (6.5-8.0) g/dL Albumin (3.5-5.0) g/dL Beta HCG, Quant mIU/mL Influenza Type A (PCR) NEGATIVE (Negative) Influenza Type B (PCR) NEGATIVE (Negative) RSV RNA Qual (PCR) NEGATIVE (Negative) SARS-CoV-2 RNA (RT-PCR) NEGATIVE (Negative) ECG Data Interpretation: Normal sinus rhythm. Ventricular rate 75. Pr interval 122. QRS 80. QTC 435. Negative STEMI. Discharge Plan Discharge Clinical Impression: Headache, Lupus, Atypical chest pain Patient Disposition: Home, Self-Care Instructions: Chest Pain (DC), General Headache (ED) Additional Instructions: Your head CT scan came back normal. Blood test and EKG came back negative for acute heart attack. History physical exam does not indicate meningitis. He will be discharged with Fioricet and steroids. Return to the ED for photop hobia, loss of vision, intractable headache, intractable nausea/vomiting, fever, chills, neck stiffness, shortness of breath, chest pain, weakness, dizziness, slurred speech, facial droop, paralysis of extremities, or any other concerning symptoms. Please follow-up with your primary care provider and mixer operator tablets. Prescriptions: New yzgjsglalg-eauwhwyjywfvg-oujr [Fioricet] 50-300-40 mg capsule 1 cap PO Q4-6H PRN (Reason: pain) 5 Days Qty: 20 0RF prednisone 20 mg tablet 20 mg PO DAILY 5 Days Qty: 5 0RF No Action prednisone 2.5 mg tablet 7.5 mg PO DAILY 0RF prednisone 2.5 mg tablet 5 mg PO DAILY@1700 0RF ibuprofen 400 mg tablet 1 tab PO TID PRN (Reason: Pain, Moderate) 0RF hydroxychloroquine 200 mg tablet 300 mg PO DAILY 0RF prednisone 20 mg Tablet 20 mg PO DAILY Qty: 5 0RF cefuroxime axetil 250 mg tablet 250 mg PO BID 7 Days Qty: 10 0RF ibuprofen 600 mg tablet 600 mg PO Q8H Qty: 30 0RF colchicine 0.6 mg tablet 0.6 mg PO BID Qty: 30 0RF Stand Alone Forms: Work/School Release Discharge Date/Time: 12/05/21 00:22 Print Language: Divehi
[2021-12-04] MEDS: Butalb/Acetamin/Caff 50/325/40 TABLET 2 TAB PO (19:35)
[2021-12-04] MEDS: Metoclopramide HCl Oral Soln 10 MG/10 ML SOLUTION PO (19:40)
[2021-12-04 19:42] VITALS: BP 165/96; PULSE 87; RESP 16; O2SAT 100
[2021-12-04 19:50] LABS: MANUAL DIFF FLAG NO
[2021-12-04 19:52] LABS: Basophils Percent Auto 0.2 % (0-2); Hematocrit 31.8 % (37.0-47.0); Hemoglobin 9.5 g/dl (12.0-16.0); Imm Gran Pct Auto 2.1 % (0.0-0.4); Lymphocytes Absolute Auto 1.2 X10*3/uL (1.2-4.9); Lymphocytes Percent Auto 24.6 % (20-40); Mean Corpuscular HGB Conc 29.9 g/dl (31.0-35.0); Mean Corpuscular Hemoglobin 29.1 pg (27.0-33.0); Mean Corpuscular Volume 97.5 fL (80.0-98.0); Mean Platelet Volume 8.9 fL (9.4-12.3); Monocytes Absolute Auto 0.3 X10*3/uL (0.1-1.2); Monocytes Percent Auto 6.2 % (2-11); Neutrophils Absolute Auto 3.2 x10*3/uL (2.0-8.3); Neutrophils Percent Auto 66.9 % (45-73); Platelet Count 187 X10*3/uL (160-400); Red Blood Count 3.26 X10*6/uL (4.20-5.50); Red Cell Distribution Width 15.8 % (11.0-16.0); White Blood Count 4.8 X10*3/uL (4.8-10.8)
[2021-12-04 20:00] LABS: INTERNATIONAL NORM RATIO 0.9 (0.9-1.1); Prothrombin Time 10.5 SEC (9.9-13.0)
[2021-12-04 20:02] LABS: Partial Thromboplastin Time 33.8 SEC (24.1-38.0)
[2021-12-04 20:08] LABS: Alanine Aminotransferase 10 U/L (0-31); Albumin Level 3.1 g/dL (3.5-5.0); Alkaline Phosphatase 39 U/L (39-117); Anion Gap 12 (12-20); Aspartate Amino Transferase 21 U/L (5-31); Bilirubin Total 0.3 mg/dL (0.0-1.0); Blood Urea Nitrogen 12 mg/dL (9-16); Carbon Dioxide 26 mmol/L (22-29); Chloride 102 mmol/L (96-108); Creatinine Clr Calc Pharmacy 92.7; Estimated Glomerular Filt Rate > 60; Glucose Random 64 mg/dL (60-115); Potassium 3.8 mmol/L (3.3-5.1); Sodium 136 mmol/L (135-145); Total Protein 5.7 g/dL (6.5-8.0)
[2021-12-04 20:14] LABS: HCG Quantitative < 2 mIU/mL; Troponin-I High Sensitivity 33.6 ng/L (<3.5-17.0)
[2021-12-04 21:17] LABS: Influenza A PCR NEGATIVE (Negative); Influenza B PCR NEGATIVE (Negative); Resp Syncy Virus RNA Qual PCR NEGATIVE (Negative); SARS COV2 PCR INHOUSE NEGATIVE (Negative)
[2021-12-04] MEDS: Ketorolac Tromethamine 30 MG/ML VIAL IM (22:15)
[2021-12-04 22:26] VITALS: BP 161/115; PULSE 100; RESP 18; TEMP 36.7; O2SAT 100
[2021-12-04 23:54] VITALS: BP 137/85
== END 2021-12-05 00:22 | disposition home or self-care (01) ==
PROVIDERS: Physician Assistant; Emergency Provider Internal Medicine
DX: R07.89 Other chest pain (principal); R51.9 Headache, unspecified; M32.9 Systemic lupus erythematosus, unspecified; F17.200 Nicotine dependence, unspecified, uncomplicated; F12.90 Cannabis use, unspecified, uncomplicated; Z20.822 Contact with and (suspected) exposure to COVID-19
CPT/HCPCS: 0241U; 36415; 70450; 71045; 80053; 84484; 84702; 85025; 85610; 85730; 93005; 96372; 99284; 99285; J1885

== ENCOUNTER 2021-12-10 14:01 | Emergency (ER) | payer OTHER, SELFPAY ==
[2021-12-10 14:58] VITALS: BP 183/107; PULSE 87; RESP 20; TEMP 36.6; O2SAT 100; BMI 21.7
--- NOTE | 2021-12-10 15:05 | ECG_ITS ---
Test Reason : HYPERTENTION Blood Pressure : / mmHG Vent. Rate : 080 BPM Atrial Rate : 080 BPM P-R Int : 124 ms QRS Dur : 090 ms QT Int : 378 ms P-R-T Axes : 036 062 068 degrees QTc Int : 435 ms Normal sinus rhythm Normal ECG No significant changes when compared with the previous EKG of 04 december 2021 Referred By: Generic ED Physician Electronically Signed By:ARRON SUAREZ
[2021-12-10 15:17] LABS: MANUAL DIFF FLAG NO
[2021-12-10 15:19] LABS: Basophils Percent Auto 0.2 % (0-2); Hematocrit 32.2 % (37.0-47.0); Hemoglobin 9.9 g/dl (12.0-16.0); Lymphocytes Percent Auto 20.1 % (20-40); Mean Corpuscular HGB Conc 30.7 g/dl (31.0-35.0); Mean Corpuscular Hemoglobin 28.9 pg (27.0-33.0); Mean Corpuscular Volume 93.9 fL (80.0-98.0); Mean Platelet Volume 10.7 fL (9.4-12.3); Monocytes Absolute Auto 0.4 X10*3/uL (0.1-1.2); Monocytes Percent Auto 8.5 % (2-11); Neutrophils Absolute Auto 3.4 x10*3/uL (2.0-8.3); Neutrophils Percent Auto 69.2 % (45-73); Platelet Count 284 X10*3/uL (160-400); Red Blood Count 3.43 X10*6/uL (4.20-5.50); Red Cell Distribution Width 15.5 % (11.0-16.0)
[2021-12-10 15:33] LABS: Anion Gap 12 (12-20); Blood Urea Nitrogen 19 mg/dL (9-16); Calcium 8.9 mg/dL (8.4-10.2); Carbon Dioxide 24 mmol/L (22-29); Chloride 109 mmol/L (96-108); Creatinine Clr Calc Pharmacy 94.7; Estimated Glomerular Filt Rate > 60; Glucose Random 92 mg/dL (60-115); Potassium 4.6 mmol/L (3.3-5.1); Sodium 140 mmol/L (135-145)
[2021-12-10 18:26] VITALS: BP 186/100; PULSE 84; RESP 18; O2SAT 98
[2021-12-10] MEDS: Acetaminophen 325 MG TABLET 650 MG PO (18:27)
[2021-12-10 19:45] VITALS: BP 174/108; PULSE 84; RESP 18; TEMP 36.3; O2SAT 100
== END 2021-12-10 21:43 | disposition left against medical advice (07) ==
PROVIDERS: Emergency Provider Emergency Medicine
DX: R51.9 Headache, unspecified (principal)
CPT/HCPCS: 36415; 80048; 85025; 93005; 99283

== ENCOUNTER 2021-12-11 08:47 | Emergency (ER) | payer OTHER, SELFPAY ==
--- NOTE | ~2021-12-11 | XR_ITS ---
EXAMINATION: XR CHEST CLINICAL INFORMATION: Chest pain for multiple days COMPARISON: None TECHNIQUE: Frontal view of the chest was obtained. FINDINGS: No significant abnormality is noted involving the heart, lungs, mediastinum, bony thorax or soft tissues. XR/XR chest 1V IMPRESSION: Unremarkable chest examination.
--- NOTE | 2021-12-11 09:04 | ECG_ITS ---
Test Reason : CHEST PAIN Blood Pressure : / mmHG Vent. Rate : 078 BPM Atrial Rate : 078 BPM P-R Int : 144 ms QRS Dur : 088 ms QT Int : 394 ms P-R-T Axes : 021 064 063 degrees QTc Int : 449 ms Normal sinus rhythm Normal ECG When compared with ECG of 10-DEC-2021 15:03, No significant change was found Referred By: Keith Walsh Electronically Signed By:ARRON SUAREZ
[2021-12-11 09:10] VITALS: BP 150/100; BP 170/94; PULSE 75; PULSE 78; RESP 16; TEMP 36.4; O2SAT 100; O2SAT 98; BMI 21.6
--- NOTE | 2021-12-11 09:41 | ED_ITS ---
HPI - General Adult General Chief complaint: General Medical Stated complaint: CP FOR DAYS,HIGH BP 205/87,NITRO 140/96 PER EMS Time Seen by Provider: 12/11/21 11:29 Source: patient Mode of arrival: ambulatory Limitations: no limitations History of Present Illness HPI narrative: 26-year-old female with history of lupus presents to ED for coughing with white mucus, headache, bodyaches, and chest pain. Patient was seen in the ED last Friday with similar results and was discharged home and patient yesterday. symp toms r-eexacerbated. Patient presently denies any chest pain and complain of body aches and headache. Patient received nitro and aspirin in the EMS. Patient's systolic blood pressure yesterday was 181. EMS states her blood pressure in ambulance systolic was 205 per Related Data Home Medications Medication Instructions Recorded Confirmed hydroxychloroquine 200 mg tablet 300 mg PO DAILY 01/18/21 01/18/21 ibuprofen 400 mg tablet 1 tab PO TID PRN 01/18/21 01/18/21 prednisone 2.5 mg tablet 5 mg PO DAILY@1700 01/18/21 01/18/21 prednisone 2.5 mg tablet 7.5 mg PO DAILY 01/18/21 01/18/21 Previous Rx's Medication Instructions Recorded cefuroxime axetil 250 mg tablet 250 mg PO BID 7 Days #10 tab 01/19/21 prednisone 20 mg tablet 20 mg PO DAILY #5 tab 01/19/21 colchicine 0.6 mg tablet 0.6 mg PO BID #30 tab 04/29/21 ibuprofen 600 mg tablet 600 mg PO Q8H #30 tab 04/29/21 ufzdpgaaix-dkkcvjhldztkj-iqtqbikx 1 cap PO Q4-6H PRN 5 Days #20 cap 12/05/21 50 mg-300 mg-40 mg capsule (Fioricet) prednisone 20 mg tablet 20 mg PO DAILY 5 Days #5 tab 12/05/21 amlodipine 5 mg tablet 5 mg PO DAILY 14 Days #14 tab 12/11/21 Allergies Allergy/AdvReac Type Severity Reaction Status Date / Time No Known Allergies Allergy Verified 01/17/21 18:57 Review of Systems Review of Systems: Coughing, white mucus, body aches, headache, and resolved chest pain Yes all other systems are reviewed and are negative PMFSH Past Medical History Medical History (Updated 12/11/21 @ 12:41 by ELLA Dewey) Anxiety Depression Fibromyalgia Lupus Social History Social History Household Members: Spouse, Family and Children Housing: Apartment Do you presently have visiting nurse or other home services: Yes Alcohol intake: never Patient Tobacco Use Status: Current everyday Tobacco user Cigarette Packs Per Day: 0.5 Cigarettes Per Day: 10.0 Years Smoked: 7 Substance Use Type: Marijuana Advance Directives Date on File: 01/18/21 service: No Current occupational status: disabled Physical Exam ED Vital Signs: Vital Signs - 24 hr 12/11/21 09:10 12/11/21 11:42 Temperature 97.5 F 97.9 F Pulse Rate 75 79 Respiratory Rate 16 19 Blood Pressure 170/94 H 171/89 H Pulse Oximetry 98 98 BMI result Body Mass Index 21.6 Const General: cooperative, healthy appearing, comfortable, no acute distress, well developed, alert and awake Orientation/consciousness: patient oriented x3 HENMT Head: Yes normal to inspection, Yes No palpable skull fracture present, Yes normocephalic, Yes atraumatic and No abrasion Eyes General: appearance normal, both eyes and all related structures Neck Neck: Yes normal visual inspection, Yes full ROM, Yes no lymphadenopathy, Yes no meningeal signs, Yes trachea midline, Yes supple, No anterior neck swelling and No tender Chest Chest palpation & inspection: normal inspection of the chest and normal palpation of entire chest wall Resp Effort & Inspection: normal respiratory effort and able to speak in complete sentences Auscultation: clear to auscultation bilaterally Cardio Jugular venous distension: no JVD Heart sounds: S1 normal heart sound present and S2 normal heart sound present GI Inspection: Yes normal to inspection and No abdominal wall ecchymosis Palpation (GI): Soft to palpation, not firm, nontender, no guarding and not rigid General: No CVA tenderness and Yes no CVA tenderness Back/Spine/Pelvis Back: no CVA tenderness, No CVA tenderness and No back tenderness Skin General skin exam: no rashes or lesions noted and elasticity normal Neuro Other: Negative for any neuro deficits. Negative slurred speech. Negative facial droop. Negative pronator drift. All extremities equal strength 5+. Onggqs-qi-mack and rapid head movement intact. Negative Romberg. Qrkbkx-lc-vwha rapid hand movement General: patient oriented x3, gait normal, no meningeal signs and CN's II-XI intact bilaterally Cranial nerves: Yes CN's II-XII intact bilaterally Extrem Other: Lower extremities negative for swelling, pitting edema, or calf tenderness. Psych Appearance: grossly normal, well kempt and not disheveled Course Course Course Narrative: Patient have a cardiac workup and also will be swabbed for COVID-19. Patient is pleasant appearing. Patient may have some underlying high blood pressure. Reevaluation(s) Reevaluation #1: Patient positive for COVID. Patient was informed of this diagnosis and admitted she is not vaccinated against COVID. Patient states her children at home also having similar symptoms such as coughing and body aches. Patient presently is well-appearing. Patient denies any pleuritic chest pain. Chest x-ray negative for pneumonia. Presently not suspecting PE, CHF, or myocardiotis. Waiting for 2nd troponin. Time: 10:30 Reevaluation #2: Patient's 2nd troponin negative. Patient is comfortable and not in any distress. Ate 2 sandwiches, crackers, and drank juice. Patient given in formation for rheumatology clinic for follow-up. Patient recommended self- isolation. Patient encouraged to get vaccinated against COVID after symptoms resolved. Patient informed to return to the ED immediately if he has worsening chest pain, chest pain on inspiration, leg swelling, calf pain, coughing up blood, weakness, dizziness, or any other concerning symptoms. Negative for any neuro deficits. No head CT scan indicated. Will discharge with amlodipine for patient having underlying high blood pressure. Time: 12:33 Medical Decision Making MDM Narrative Medical decision making narrative: COVID. Hypertension Lab Data Result diagrams: 12/11/21 09:36 12/11/21 09:36 Labs: Lab Results 12/11/21 12/11/21 12/11/21 Range/Units 09:36 09:36 09:36 WBC 3.2 L (4.8-10.8) X10*3/uL RBC 3.33 L (4.20-5.50) X10*6/uL Hgb 9.7 L (12.0-16.0) g/dl Hct 31.1 L (37.0-47.0) % MCV 93.4 (80.0-98.0) fL MCH 29.1 (27.0-33.0) pg MCHC 31.2 (31.0-35.0) g/dl RDW 15.7 (11.0-16.0) % Plt Count 267 (160-400) X10*3/uL MPV 9.9 (9.4-12.3) fL Immature Gran % (Auto) 3.5 H (0.0-0.4) % Neut % (Auto) 40.4 L (45-73) % Lymph % (Auto) 44.8 H (20-40) % Runnels % (Auto) 11.0 (2-11) % Eos % (Auto) 0.3 (0-4) % Baso % (Auto) 0.0 (0-2) % Lymph # (Auto) 1.4 (1.2-4.9) X10*3/uL Runnels # (Auto) 0.4 (0.1-1.2) X10*3/uL Eos # (Auto) 0.0 (0.0-0.4) X10*3/uL Baso # (Auto) 0.0 (0.0-0.2) X10*3/uL Abs Immat Gran (auto) 0.11 H (0.00-0.03) X10*3/uL Absolute Neuts (auto) 1.3 L (2.0-8.3) x10*3/uL Absolute Nucleated RBC 0.000 (0.0-0.012) X10*3/uL Nucleated RBC % (auto) 0.0 (0.0-0.2) /100WBC Smear Tech's Comments VERIFIED PT 10.7 (9.9-13.0) SEC INR 0.9 (0.9-1.1) APTT 32.4 (24.1-38.0) SEC Sodium 139 (135-145) mmol/L Potassium 4.2 (3.3-5.1) mmol/L Chloride 107 (96-108) mmol/L Carbon Dioxide 27 (22-29) mmol/L Anion Gap 9 L (12-20) BUN 14 (9-16) mg/dL Creatinine 0.83 (0.5-1.4) mg/dL Estim Creat Clear Calc 98.1 Estimated GFR > 60 Random Glucose 77 (60-115) mg/dL Calcium 8.4 (8.4-10.2) mg/dL Total Bilirubin < 0.2 (0.0-1.0) mg/dL AST 17 (5-31) U/L ALT 10 (0-31) U/L Alkaline Phosphatase 38 L (39-117) U/L Troponin I High Sens (<3.5-17.0) ng/L B-Natriuretic Peptide (<100) pg/mL Total Protein 5.4 L (6.5-8.0) g/dL Albumin 2.8 L (3.5-5.0) g/dL COVID-19 ([facility]) (Negative) COVID-19 Clin Com 12/11/21 12/11/21 12/11/21 Range/Units 09:36 09:36 11:37 WBC (4.8-10.8) X10*3/uL RBC (4.20-5.50) X10*6/uL Hgb (12.0-16.0) g/dl Hct (37.0-47.0) % MCV (80.0-98.0) fL MCH (27.0-33.0) pg MCHC (31.0-35.0) g/dl RDW (11.0-16.0) % Plt Count (160-400) X10*3/uL MPV (9.4-12.3) fL Immature Gran % (Auto) (0.0-0.4) % Neut % (Auto) (45-73) % Lymph % (Auto) (20-40) % Runnels % (Auto) (2-11) % Eos % (Auto) (0-4) % Baso % (Auto) (0-2) % Lymph # (Auto) (1.2-4.9) X10*3/uL Runnels # (Auto) (0.1-1.2) X10*3/uL Eos # (Auto) (0.0-0.4) X10*3/uL Baso # (Auto) (0.0-0.2) X10*3/uL Abs Immat Gran (auto) (0.00-0.03) X10*3/uL Absolute Neuts (auto) (2.0-8.3) x10*3/uL Absolute Nucleated RBC (0.0-0.012) X10*3/uL Nucleated RBC % (auto) (0.0-0.2) /100WBC Smear Tech's Comments PT (9.9-13.0) SEC INR (0.9-1.1) APTT (24.1-38.0) SEC Sodium (135-145) mmol/L Potassium (3.3-5.1) mmol/L Chloride (96-108) mmol/L Carbon Dioxide (22-29) mmol/L Anion Gap (12-20) BUN (9-16) mg/dL Creatinine (0.5-1.4) mg/dL Estim Creat Clear Calc Estimated GFR Random Glucose (60-115) mg/dL Calcium (8.4-10.2) mg/dL Total Bilirubin (0.0-1.0) mg/dL AST (5-31) U/L ALT (0-31) U/L Alkaline Phosphatase (39-117) U/L Troponin I High Sens 9.6 D 12.5 (<3.5-17.0) ng/L B-Natriuretic Peptide 133 H (<100) pg/mL Total Protein (6.5-8.0) g/dL Albumin (3.5-5.0) g/dL COVID-19 ([facility]) Positive A (Negative) COVID-19 Clin Com See Note ECG Data Interpretation: Normal sinus rhythm. Normal EKG. Ventricular rate 78. Pr interval 144. Caris 88. QTC 449. Negative STEMI Discharge Plan Discharge Clinical Impression: COVID-19, Hypertension Patient Disposition: Home, Self-Care Instructions: Hypertension (ED), COVID-19 (Coronavirus Disease 2019) (ED) Additional Instructions: Your blood work and EKG came back negative for heart attack. Chest x-ray came back negative for any pneumonia. You came back positive for COVID-19 which is causing to you're symptoms. You may have some underlying high blood pressure you will be discharged with blood pressure medication. It is imperative that you follow-up with your primary care provider and you will be given information by us to contact rheumatology clinic for follow-up to manage your lupus. Return to the ED for any chest pain/shortness of breath, coughing up blood, calf pain, leg swelling, weakness, dizziness, severe headache, facial droop, slurred speech, loss of vision, paralysis of extremities, or any other concerning symptoms. Prescriptions: New amlodipine 5 mg tablet 5 mg PO DAILY 14 Days Qty: 14 0RF No Action prednisone 2.5 mg tablet 7.5 mg PO DAILY 0RF prednisone 2.5 mg tablet 5 mg PO DAILY@1700 0RF ibuprofen 400 mg tablet 1 tab PO TID PRN (Reason: Pain, Moderate) 0RF hydroxychloroquine 200 mg tablet 300 mg PO DAILY 0RF prednisone 20 mg Tablet 20 mg PO DAILY Qty: 5 0RF cefuroxime axetil 250 mg tablet 250 mg PO BID 7 Days Qty: 10 0RF ibuprofen 600 mg tablet 600 mg PO Q8H Qty: 30 0RF colchicine 0.6 mg tablet 0.6 mg PO BID Qty: 30 0RF wyyqyjzfjl-omasfiiaccjtq-tbcm [Fioricet] 50-300-40 mg capsule 1 cap PO Q4-6H PRN (Reason: pain) 5 Days Qty: 20 0RF prednisone 20 mg tablet 20 mg PO DAILY 5 Days Qty: 5 0RF Referrals: [facility] – [place] Rheumatology Service [Provider Group] - 2 days (Needs lupus management.) Stand Alone Forms: Work/School Release Interventions: ED Discharge Assessment Last Done: 12/11/21 12:52 Discharge Date/Time: 12/11/21 12:53 Print Language: Guinean
[2021-12-11 09:44] LABS: Eosinophils Percent Auto 0.3 % (0-4); Hematocrit 31.1 % (37.0-47.0); Hemoglobin 9.7 g/dl (12.0-16.0); Imm Gran Abs Auto 0.11 X10*3/uL (0.00-0.03); Imm Gran Pct Auto 3.5 % (0.0-0.4); Lymphocytes Absolute Auto 1.4 X10*3/uL (1.2-4.9); Lymphocytes Percent Auto 44.8 % (20-40); MANUAL DIFF FLAG SCAN; Mean Corpuscular HGB Conc 31.2 g/dl (31.0-35.0); Mean Corpuscular Hemoglobin 29.1 pg (27.0-33.0); Mean Corpuscular Volume 93.4 fL (80.0-98.0); Mean Platelet Volume 9.9 fL (9.4-12.3); Monocytes Absolute Auto 0.4 X10*3/uL (0.1-1.2); Neutrophils Absolute Auto 1.3 x10*3/uL (2.0-8.3); Neutrophils Percent Auto 40.4 % (45-73); Platelet Count 267 X10*3/uL (160-400); Red Blood Count 3.33 X10*6/uL (4.20-5.50); Red Cell Distribution Width 15.7 % (11.0-16.0); SCAN SMEAR FLAG 1; White Blood Count 3.2 X10*3/uL (4.8-10.8)
[2021-12-11 09:49] LABS: INTERNATIONAL NORM RATIO 0.9 (0.9-1.1); Prothrombin Time 10.7 SEC (9.9-13.0)
[2021-12-11 09:52] LABS: Partial Thromboplastin Time 32.4 SEC (24.1-38.0)
[2021-12-11 09:53] LABS: COVID-19 Test Positive (Negative)
[2021-12-11 10:06] LABS: B Type Natriuretic Peptide 133 pg/mL (<100); SLIDE REVIEW VERIFIED; Troponin-I High Sensitivity 9.6 ng/L (<3.5-17.0)
[2021-12-11 10:17] LABS: Alanine Aminotransferase 10 U/L (0-31); Albumin Level 2.8 g/dL (3.5-5.0); Alkaline Phosphatase 38 U/L (39-117); Anion Gap 9 (12-20); Aspartate Amino Transferase 17 U/L (5-31); Bilirubin Total < 0.2 mg/dL (0.0-1.0); Blood Urea Nitrogen 14 mg/dL (9-16); Calcium 8.4 mg/dL (8.4-10.2); Carbon Dioxide 27 mmol/L (22-29); Chloride 107 mmol/L (96-108); Creatinine Clr Calc Pharmacy 98.1; Estimated Glomerular Filt Rate > 60; Glucose Random 77 mg/dL (60-115); Potassium 4.2 mmol/L (3.3-5.1); Sodium 139 mmol/L (135-145); Total Protein 5.4 g/dL (6.5-8.0)
[2021-12-11 11:42] VITALS: BP 171/89; PULSE 79; RESP 19; TEMP 36.6; O2SAT 98
[2021-12-11 12:01] LABS: Troponin-I High Sensitivity 12.5 ng/L (<3.5-17.0)
== END 2021-12-11 12:53 | disposition home or self-care (01) ==
PROVIDERS: Physician Assistant; Emergency Provider Emergency Medicine
DX: U07.1 COVID-19 (principal); R07.9 Chest pain, unspecified; I10 Essential (primary) hypertension; R51.9 Headache, unspecified; M79.10 Myalgia, unspecified site; F17.210 Nicotine dependence, cigarettes, uncomplicated; Z79.899 Other long term (current) drug therapy; Z71.6 Tobacco abuse counseling
CPT/HCPCS: 36415; 71045; 80053; 83880; 84484; 85025; 85610; 85730; 87635; 93005; 99283; 99284

== ENCOUNTER 2022-03-19 12:36 | Inpatient (IN) | payer OTHER, SELFPAY ==
[2022-03-19] VITALS (10 sets, daily range): BP systolic 169–209; BP diastolic 99–119; PULSE 80–89; RESP 14–22; TEMP 36.9–37.4; O2SAT 99–100; BMI 21.9
--- NOTE | ~2022-03-19 | CT_ITS ---
EXAMINATION: CT HEAD WITHOUT CONTRAST CLINICAL INFORMATION: Headache COMPARISON: 12/04/2021 TECHNIQUE: Contiguous axial imaging was performed from the skull base to vertex without intravenous contrast. This CT examination was performed using dose optimization techniques as appropriate, variously including the following: * Automated exposure control * Adjustment of mA and/or kV according to patient size (this includes techniques or standardized protocols for targeted exams where dose is matched to indication/reason for exam; i.e. extremities or head) Use of iterative reconstruction technique DLP: 669 mGy-cm. FINDINGS: There is no evidence of acute intracranial hemorrhage or territorial infarction. No abnormal mass effect or midline shift is seen. Vogt to white matter differentiation is well preserved. No extra-axial fluid collections are identified. No hydrocephalus. No significant volume loss. There is no abnormal attenuation within the brain parenchyma. The osseous structures and soft tissues are normal. The mastoid air cells and visualized portions of the paranasal sinuses are well aerated. CT/CT head/brain wo con IMPRESSION: No acute intracranial pathology.
--- NOTE | ~2022-03-19 | CT_ITS ---
PROCEDURE: CT GUIDED BIOPSY, KIDNEY CLINICAL INFORMATION: KALEIGH. History of lupus. COMPARISON: Ultrasound of the pelvis 03/20/2022. TECHNIQUE: Following explaining CT-guided right renal lower pole core biopsy procedure, benefits and risk, a written consent was obtained. Patient was placed prone and preliminary CT imaging was obtained. An optimal site was selected along the right posterior abdomen ronald. The marked site was cleaned and draped in usual sterile manner. 1% lidocaine was administered at the puncture site. Through a small skin incision a 20-gauge guide needle was advanced to the level of the right lower pole capsule. Coaxially a 20-gauge biopsy gun was administered and a 3 pass biopsy was obtained. Adequate amount of solid tissue was obtained. Postprocedure complete hemostasis was achieved at the puncture site. The patient tolerated the procedure extremely well. No bleeding was seen post procedure. This CT examination was performed using dose optimization techniques as appropriate, variously including the following: *Automated exposure control *Adjustment of mA and/or kV according to patient size (this includes techniques or standardized protocols for targeted exams where dose is matched to indication/reason for exam; i.e. extremities or head) *Use of iterative reconstruction technique DLP: 178 mGy-cm FINDINGS: On preliminary CT imaging there is symmetric kidney size and cortex. CT fluoroscopy-guided right kidney lower pole core biopsy was obtained. The patient tolerated the procedure extremely well. CT/CT biopsy renal RT IMPRESSION: Successful CT fluoroscopy-guided right kidney core biopsy performed without any complications.
--- NOTE | ~2022-03-19 | US_ITS ---
EXAMINATION: US PELVIS CLINICAL INFORMATION: Abnormal uterine bleeding COMPARISON: None TECHNIQUE: Ultrasound of the pelvis is performed using both transabdominal and transvaginal transducers along with Doppler. Transvaginal imaging is performed due to inadequate visualization transabdominally. FINDINGS: Uterus: The uterus is anteverted, anteflexed and measures 7.6 x 3.9 x 4.2 cm. The double wall endometrial thickness is 0.2 cm. The uterus is smooth in contour and has normal myometrial echogenicity. No visible fibroid. Adnexa: Both ovaries are visualized. There is normal color flow to the adnexa. There is no ovarian torsion. There is no pelvic ascites or fluid collection. Right ovary measures 3.3 x 3.2 x 2.5 cm and volume 13.8 mL. Less than 1 cm follicle seen. Left ovary measures 4.1 x 2.3 x 2.4 cm and volume 11.9 mL. There is an a vascular cyst measuring 1.8 x 1.6 x 1.5 cm. There is moderate amount of free fluid in the cul-de-sac. US/US pelvic and transvaginal IMPRESSION: Avascular cyst left ovary measuring 1.8 cm. Small follicle right ovary. The uterus and cervix is unremarkable. Moderate amount of free fluid in the cul-de-sac.
--- NOTE | ~2022-03-19 | US_ITS ---
EXAMINATION: US RETROPERITONEAL LIMITED (RENAL ONLY) CLINICAL INFORMATION: Acute kidney injury, rule out obstruction. COMPARISON: Abdominal ultrasound dated 01/19/2021. TECHNIQUE: Multiple 2-D grayscale and Doppler ultrasound images of the kidneys were obtained. FINDINGS: RIGHT KIDNEY: 11.7 x 5.1 x 5.8 cm (SAG x AP x TRV). The kidney is normal in size, contour, and echogenicity. Renal cortical thickness is normal. No calculi or focal parenchymal lesions. No hydronephrosis. LEFT KIDNEY: 10.7 x 5.9 x 6.0 cm (SAG x AP x TRV). Mild cortical heterogeneity and linear hypoechoic foci. No nephrolithiasis or hydronephrosis. Color Doppler showed mild increased vascular flow. Trace left pleural effusion. US/US renal BI IMPRESSION: 1. Left renal findings are nonspecific, but can be seen with pyelonephritis. No obstruction. Correlate clinically. 2. Trace left pleural effusion.
[2022-03-19 14:17] LABS: MANUAL DIFF FLAG NO
[2022-03-19 14:18] LABS: Hemoglobin 7.8 g/dl (12.0-16.0); Imm Gran Abs Auto 0.03 X10*3/uL (0.00-0.03); Imm Gran Pct Auto 0.6 % (0.0-0.4); Lymphocytes Absolute Auto 0.6 X10*3/uL (1.2-4.9); Lymphocytes Percent Auto 13.6 % (20-40); Mean Corpuscular HGB Conc 31.2 g/dl (31.0-35.0); Mean Corpuscular Volume 89.6 fL (80.0-98.0); Mean Platelet Volume 9.3 fL (9.4-12.3); Monocytes Absolute Auto 0.3 X10*3/uL (0.1-1.2); Monocytes Percent Auto 6.9 % (2-11); Neutrophils Absolute Auto 3.7 x10*3/uL (2.0-8.3); Neutrophils Percent Auto 78.9 % (45-73); Platelet Count 181 X10*3/uL (160-400); Red Blood Count 2.79 X10*6/uL (4.20-5.50); Red Cell Distribution Width 16.7 % (11.0-16.0); White Blood Count 4.6 X10*3/uL (4.8-10.8)
[2022-03-19 14:25] LABS: INTERNATIONAL NORM RATIO 0.9 (0.9-1.1); Prothrombin Time 10.1 SEC (10.0-13.1)
--- NOTE | 2022-03-19 14:28 | ED_ITS ---
HPI - General Adult General Chief complaint: General Medical Stated complaint: WEAKNESS/PAIN HISTORY OF LUPUS Time Seen by Provider: 03/19/22 14:04 Source: patient Mode of arrival: ambulatory Limitations: no limitations History of Present Illness HPI narrative: 26-year-old female came in for evaluation of generalized body ache. Patient after exposure to sunlight center to have swelling more in both hands, also been having generalized body ache in every joint. No fever or chills. Patient with past history significant for fibromyalgia and lupus. Patient declined any SOB, generalized body ache including dull aching nonspecific chest pain. No lower extremity swelling or edema. Related Data Home Medications Medication Instructions Recorded Confirmed hydroxychloroquine 200 mg tablet 300 mg PO DAILY 01/18/21 01/18/21 ibuprofen 400 mg tablet 1 tab PO TID PRN Pain, Moderate 01/18/21 01/18/21 prednisone 2.5 mg tablet 5 mg PO DAILY@1700 01/18/21 01/18/21 prednisone 2.5 mg tablet 7.5 mg PO DAILY 01/18/21 01/18/21 Previous Rx's Medication Instructions Recorded cefuroxime axetil 250 mg tablet 250 mg PO BID 7 days #10 tabs 01/19/21 prednisone 20 mg tablet 20 mg PO DAILY #5 tabs 01/19/21 colchicine 0.6 mg tablet 0.6 mg PO BID #30 tabs 04/29/21 ibuprofen 600 mg tablet 600 mg PO Q8H #30 tabs 04/29/21 ioashadgfq-ikvyttmykgkgr-qtiegbkl 1 cap PO Q4-6H PRN pain 5 days #20 12/05/21 50 mg-300 mg-40 mg capsule caps (Fioricet) prednisone 20 mg tablet 20 mg PO DAILY 5 days #5 tabs 12/05/21 amlodipine 5 mg tablet 5 mg PO DAILY 14 days #14 tabs 12/11/21 Allergies Allergy/AdvReac Type Severity Reaction Status Date / Time No Known Allergies Allergy Verified 03/19/22 13:53 Review of Systems Review of Systems: All other systems are reviewed and are negative Constitutional: Reports as per HPI and Reports no additional constitutional complaints Eyes: Reports as per HPI and Reports no additional eye complaints Reports system reviewed and no additional complaints, except as documented Cardiovascular: Reports as per HPI and Reports no additional cardiovascular co mplaints Respiratory: Reports as per HPI and Reports no additional respiratory complaints Gastrointestinal: Reports as per HPI and Reports no additional gastrointestinal complaints Genitourinary: Reports no additional female genitourinary complaints Musculoskeletal: Reports no additional musculoskeletal complaints Skin/Breast: Reports system reviewed and no additional complaints, except as docu Psychiatric: Reports no additional psychiatric complaints Endocrine: Reports no additional endocrine complaints Hematologic/Lymphatic: Reports no additional hematologic/lymphatic complaints Allergic/Immunologic: Reports no additional allergic/immunologic complaints Reports system reviewed and no additional complaints, except as documented and Reports Abnormal speech present [facility] Past Medical History Medical History Anxiety Depression Fibromyalgia Lupus Social History Social History Household Members: Spouse, Family and Children Housing: Apartment Do you presently have visiting nurse or other home services: Yes Alcohol intake: never Patient Tobacco Use Status: Current everyday Tobacco user Cigarette Packs Per Day: 0.5 Cigarettes Per Day: 10.0 Years Smoked: 7 Substance Use Type: Marijuana Advance Directives: Yes Advance Directives on File: Yes Advance Directives Date on File: 01/18/21 service: No Current occupational status: disabled Physical Exam ED Vital Signs: Vital Signs - 24 hr 03/19/22 13:46 03/19/22 14:57 Temperature 98.8 F Pulse Rate 87 Respiratory Rate 16 18 Blood Pressure 209/119 H Pulse Oximetry 100 Oxygen Delivery Method Room Air BMI result Body Mass Index 21.9 Vital signs have been reviewed as appeared to be correct. Blood pressure elevated. Heart rate normal. Respiration rate normal. Temperature normal. Oxygen saturation normal. Appearance: Alert. Oriented X3. No acute distress. Head: Normal external exam. Normocephalic. Atraumatic. No Paz signs noted. No raccoon eyes noted Eyes: PERRLA. EOMI. Conjunctiva and sclera normal. Eyelids normal. ENT: TM's Normal. Pharynx normal. Uvula midline. Moist mucous membranes. No trismus noted. No drooling noted. No muffled voice noted. Neck: Normal inspection. Neck supple. FROM. No adenopathy. Thyroid Normal. No meningeal signs. No neck mass noted. CVS: Normal heart rate and rhythm. Heart sound normal. No murmurs noted. Pulses normal throughout. Respiratory: No respiratory distress. Painless inspiration. Breath sounds gilbert l. No wheezes/rales/rhonchi noted. Chest nontender. No accessory muscle usage noted or decreased air movement noted. Abdomen: Soft and nontender. Bowel sounds normal in all 4 quadrants. No distention noted. No organomegaly noted. No visible injury noted. Back: No CVA tenderness. Full range of motion noted. Skin: Skin warm and dry. Normal skin color. Normal skin turgor. No rashes/lesions/lacerations noted. Extremities: No lower extremity edema. Extremities exhibit normal range of motion. Extremities nontender. Neuro: Oriented X 3. Cranial nerve exam: II-XII are grossly intact No motor deficit. No sensory deficit. Reflexes normal. Course Course Course Narrative: 26-year-old female with history of lupus and fibromyalgia came in with generalized body ache found to have elevated BP, also elevated troponin. Will repeat troponin at 05:30, patient also anemic with no obvious source of bleeding would consider blood transfusion case discussed and signed out to . Medical Decision Making Lab Data Lab results reviewed: Yes I reviewed the patient's lab results. Result diagrams: 03/19/22 14:07 03/19/22 14:07 Labs: Lab Results 03/19/22 03/19/22 03/19/22 Range/Units 14:07 14:07 14:07 WBC 4.6 L (4.8-10.8) X10*3/uL RBC 2.79 L (4.20-5.50) X10*6/uL Hgb 7.8 L (12.0-16.0) g/dl Hct 25.0 L (37.0-47.0) % MCV 89.6 (80.0-98.0) fL MCH 28.0 (27.0-33.0) pg MCHC 31.2 (31.0-35.0) g/dl RDW 16.7 H (11.0-16.0) % Plt Count 181 D (160-400) X10*3/uL MPV 9.3 L (9.4-12.3) fL Immature Gran % (Auto) 0.6 H (0.0-0.4) % Neut % (Auto) 78.9 H (45-73) % Lymph % (Auto) 13.6 L (20-40) % Winston % (Auto) 6.9 (2-11) % Eos % (Auto) 0.0 (0-4) % Baso % (Auto) 0.0 (0-2) % Lymph # (Auto) 0.6 L (1.2-4.9) X10*3/uL Winston # (Auto) 0.3 (0.1-1.2) X10*3/uL Eos # (Auto) 0.0 (0.0-0.4) X10*3/uL Baso # (Auto) 0.0 (0.0-0.2) X10*3/uL Abs Immat Gran (auto) 0.03 (0.00-0.03) X10*3/uL Absolute Neuts (auto) 3.7 (2.0-8.3) x10*3/uL Absolute Nucleated RBC 0.000 (0.0-0.012) X10*3/uL Nucleated RBC % (auto) 0.0 (0.0-0.2) /100WBC PT 10.1 (10.0-13.1) SEC INR 0.9 (0.9-1.1) Sodium 138 (135-145) mmol/L Potassium 4.5 (3.3-5.1) mmol/L Chloride 113 H (96-108) mmol/L Carbon Dioxide 19 L (22-29) mmol/L Anion Gap 11 L (12-20) BUN 23 H D (9-16) mg/dL Creatinine 1.53 H (0.5-1.4) mg/dL Estim Creat Clear Calc 53.2 Estimated GFR 40 Random Glucose 100 (60-115) mg/dL Calcium 8.0 L (8.4-10.2) mg/dL Total Bilirubin 0.4 (0.0-1.0) mg/dL Direct Bilirubin < 0.2 (0.0-0.5) mg/dL AST 21 (5-31) U/L ALT < 6 (0-31) U/L Alkaline Phosphatase 35 L (39-117) U/L Troponin I High Sens (<3.5-17.0) ng/L Total Protein 5.7 L (6.5-8.0) g/dL Albumin 2.8 L (3.5-5.0) g/dL 03/19/22 Range/Units 14:50 WBC (4.8-10.8) X10*3/uL RBC (4.20-5.50) X10*6/uL Hgb (12.0-16.0) g/dl Hct (37.0-47.0) % MCV (80.0-98.0) fL MCH (27.0-33.0) pg MCHC (31.0-35.0) g/dl RDW (11.0-16.0) % Plt Count (160-400) X10*3/uL MPV (9.4-12.3) fL Immature Gran % (Auto) (0.0-0.4) % Neut % (Auto) (45-73) % Lymph % (Auto) (20-40) % Winston % (Auto) (2-11) % Eos % (Auto) (0-4) % Baso % (Auto) (0-2) % Lymph # (Auto) (1.2-4.9) X10*3/uL Winston # (Auto) (0.1-1.2) X10*3/uL Eos # (Auto) (0.0-0.4) X10*3/uL Baso # (Auto) (0.0-0.2) X10*3/uL Abs Immat Gran (auto) (0.00-0.03) X10*3/uL Absolute Neuts (auto) (2.0-8.3) x10*3/uL Absolute Nucleated RBC (0.0-0.012) X10*3/uL Nucleated RBC % (auto) (0.0-0.2) /100WBC PT (10.0-13.1) SEC INR (0.9-1.1) Sodium (135-145) mmol/L Potassium (3.3-5.1) mmol/L Chloride (96-108) mmol/L Carbon Dioxide (22-29) mmol/L Anion Gap (12-20) BUN (9-16) mg/dL Creatinine (0.5-1.4) mg/dL Estim Creat Clear Calc Estimated GFR Random Glucose (60-115) mg/dL Calcium (8.4-10.2) mg/dL Total Bilirubin (0.0-1.0) mg/dL Direct Bilirubin (0.0-0.5) mg/dL AST (5-31) U/L ALT (0-31) U/L Alkaline Phosphatase (39-117) U/L Troponin I High Sens 197.5 H* D (<3.5-17.0) ng/L Total Protein (6.5-8.0) g/dL Albumin (3.5-5.0) g/dL Discharge Plan Discharge Clinical Impression: Lupus, Elevated troponin, Anemia Patient Disposition: Still a Patient Prescriptions: No Action prednisone 2.5 mg tablet 7.5 mg PO DAILY prednisone 2.5 mg tablet 5 mg PO DAILY@1700 ibuprofen 400 mg tablet 1 tab PO TID PRN (Reason: Pain, Moderate) hydroxychloroquine 200 mg tablet 300 mg PO DAILY prednisone 20 mg Tablet 20 mg PO DAILY Qty: 5 0RF cefuroxime axetil 250 mg tablet 250 mg PO BID 7 Days Qty: 10 0RF ibuprofen 600 mg tablet 600 mg PO Q8H Qty: 30 0RF colchicine 0.6 mg tablet 0.6 mg PO BID Qty: 30 0RF fqyopnicav-ucvzvvgchjacw-nbpw [Fioricet] 50-300-40 mg capsule 1 cap PO Q4-6H PRN (Reason: pain) 5 Days Qty: 20 0RF prednisone 20 mg tablet 20 mg PO DAILY 5 Days Qty: 5 0RF amlodipine 5 mg tablet 5 mg PO DAILY 14 Days Qty: 14 0RF
[2022-03-19 14:41] LABS: Anion Gap 11 (12-20); Blood Urea Nitrogen 23 mg/dL (9-16); Carbon Dioxide 19 mmol/L (22-29); Chloride 113 mmol/L (96-108); Creatinine Clr Calc Pharmacy 53.2; Estimated Glomerular Filt Rate 40; Glucose Random 100 mg/dL (60-115); Potassium 4.5 mmol/L (3.3-5.1); Sodium 138 mmol/L (135-145)
[2022-03-19 14:55] LABS: Alanine Aminotransferase < 6 U/L (0-31); Albumin Level 2.8 g/dL (3.5-5.0); Alkaline Phosphatase 35 U/L (39-117); Aspartate Amino Transferase 21 U/L (5-31); Bilirubin Direct < 0.2 mg/dL (0.0-0.5); Bilirubin Total 0.4 mg/dL (0.0-1.0); Total Protein 5.7 g/dL (6.5-8.0)
[2022-03-19] MEDS: Morphine Sulfate 2 MG/ML CARTRIDGE 1 MG IVPUSH (14:57)
[2022-03-19] MEDS: 0.9 % Sodium Chloride 1,000 ML 999 ML IV ×2 (14:57→16:38)
[2022-03-19 15:18] LABS: Troponin-I High Sensitivity 197.5 ng/L (<3.5-17.0)
--- NOTE | 2022-03-19 15:21 | ECG_ITS ---
Test Reason : WEAKNESS Blood Pressure : / mmHG Vent. Rate : 069 BPM Atrial Rate : 069 BPM P-R Int : 122 ms QRS Dur : 080 ms QT Int : 410 ms P-R-T Axes : 019 063 070 degrees QTc Int : 439 ms Normal sinus rhythm Normal ECG When compared with ECG of 11-DEC-2021 09:10, No significant change was found Referred By: Ashley Pemberton Electronically Signed By:Selvin López
--- NOTE | 2022-03-19 15:23 | PC.NURSE ---
Critical result received from lab. Troponin 197.5. Reported result to lodging facilities manager (Amairani Hernandez), Primary RN (Sarai Rodrigues), and Provider (Dr. Pemberton). EKG ordered and being obtained at this time.
[2022-03-19 16:35] LABS: Influenza A PCR NEGATIVE (Negative); Influenza B PCR NEGATIVE (Negative); Resp Syncy Virus RNA Qual PCR NEGATIVE (Negative); SARS COV2 PCR INHOUSE NEGATIVE (Negative)
[2022-03-19] MEDS: amLODIPine Besylate 5 MG TABLET PO (16:35)
[2022-03-19 16:47] LABS: Appearance Urine HAZY; Color Urine YELLOW; Glucose Urine UA NEG (NEG); Leukocyte Esterase Urine NEG (NEG); Nitrite Urine NEG (NEG); PH 6.5 (5.0-8.0); Specific Gravity - Urine 1.015 (1.005-1.025); UACC Culture Trigger NO; Urine Blood 3+ (NEG); Urine Ketones NEG (NEG); Urine Protein 3+ MG/DL (NEG-TRACE)
[2022-03-19 16:48] LABS: UPreg QC Valid YES; Urine Pregnancy NEGATIVE (NEGATIVE)
[2022-03-19 16:57] LABS: Squamous Epithelial Cell Urine 3+ /LPF; UACC CULT YES
[2022-03-19 16:58] LABS: Bacteria Urine TRACE /LPF
[2022-03-19] MEDS: methylPREDNISolone Sod Succ 125 MG/2 ML VIAL IVPUSH (18:10)
[2022-03-19] MEDS: HYDROmorphone HCl 1 MG/ML SYRINGE IVPUSH (18:10)
[2022-03-19] MEDS: ondansetron HCL 4 MG/2 ML VIAL IVPUSH (18:10)
[2022-03-19 18:15] LABS: C Reactive Protein 0.28 mg/dL (< or = 0.50)
[2022-03-19 18:23] LABS: Troponin-I High Sensitivity 172.5 ng/L (<3.5-17.0)
[2022-03-19] MEDS: Furosemide 20 MG/2 ML VIAL IVPUSH (19:44)
[2022-03-19 19:52] LABS: Iron 30 mcg/dL (30-160); Percent Iron Saturation 16 % (15-50); Total Iron Binding Capacity 189 mcg/dL (228-428); Unsaturated Iron Binding 159 ug/dL
--- NOTE | 2022-03-19 21:50 | PHA.MEDREC ---
Pharmacy Consult ? Medication Reconciliation Pharmacy has completed the medication reconciliation. Done with patient in the room.
--- NOTE | 2022-03-19 23:10 | PM.IMHP ---
History of Present Illness Date of Service: 03/19/22 Chief Complaint: Joint pains 26-year-old female with a past medical history of lupus, fibromyalgia, renal insufficiency, tobacco dependence, recent history of COVID-19, hypertension presented to the hospital today with a chief complaint of diffuse body aches and chest pain. Patient reported that for the past few days she has been having generalized weakness and joint pains. Also had an episode of chest pain prior to coming to the hospital, sharp in nature, nonradiating, no associated nausea vomiting lightheadedness or dizziness. Patient does report having headaches. Denies any blurry vision. Denies any numbness tingling or focal weakness. Mentioned that her blood pressure was 218 in the EMS arrived. Reports her chest pain currently resolved. Patient reports that she has been having continuous decline bleeding for the past 3 months. Denies any abdominal pain. Mentions that after finishing her. She continued to have spotting but small in quantity. Denies any blood in the stool. Patient denies any falls or trauma. Denies any urinary symptoms. Review of all other systems is negative except mentioned above Left course: Per ER team patient noted to have elevated creatinine on labs; hemoglobin slightly dropped. Patient was transfused 1 unit of PRBC. Also noted to have elevated blood pressure. Troponins elevated but trending down; EKG was nonischemic; patient was chest pain-free. Admitted to the hospital for further management [facility] Medical History Anxiety Depression Fibromyalgia Lupus Pertinent family history: Mother has lupus Social History Household Members: Spouse, Family and Children Housing: Apartment Do you presently have visiting nurse or other home services: Yes Alcohol intake: never Patient Tobacco Use Status: Current everyday Tobacco user Cigarette Packs Per Day: 0.5 Cigarettes Per Day: 10.0 Years Smoked: 7 Substance Use Type: Marijuana Advance Directives: Yes Advance Directives on File: Yes Advance Directives Date on File: 01/18/21 service: No Current occupational status: disabled Meds Allergies Allergy/AdvReac Type Severity Reaction Status Date / Time No Known Allergies Allergy Verified 03/19/22 13:53 Active Medications: Current Medications Acetaminophen (Acetaminophen 325 Mg Tablet) 650 mg PO Q6H PRN PRN Reason: Pain, Mild (Pain Scale 1-3) Azathioprine (Azathioprine 50 Mg Tablet) 50 mg PO DAILY [facility] Enoxaparin Sodium (Enoxaparin Sodium 40 Mg/0.4 Ml Syringe) 40 mg SUBCUT Q24H [facility] Escitalopram Oxalate (Escitalopram Oxalate 10 Mg Tablet) 10 mg PO DAILY [facility] Hydromorphone HCl (Hydromorphone Hcl 0.5 Mg/0.5 Ml Syringe) 0.5 mg IVPUSH Q4H PRN; Protocol PRN Reason: Pain, Severe (Pain Scale 7-10) Hydroxychloroquine Sulfate (Hydroxychloroquine Sulfate 200 Mg Tablet) 300 mg PO DAILY [facility] Melatonin (Melatonin 3 Mg Tablet) 6 mg PO BEDTIME PRN PRN Reason: Insomnia Prednisone (Prednisone 20 Mg Tablet) 20 mg PO DAILY [facility] Senna (Sennosides 8.6 Mg Tablet) 17.2 mg PO BEDTIME PRN PRN Reason: Constipation Sodium Chloride (0.9 % Sodium Chloride Flush 3 Ml Syringe) 3 ml IVFLUSH QSHIFT [facility] Home Medications Medication Instructions Recorded Confirmed Last Taken Type hydroxychloroquine 200 mg tablet 300 mg PO DAILY 01/18/21 03/19/22 01/17/21 History acetaminophen 500 mg tablet 1 - 2 tab PO QD-TID PRN Pain 03/19/22 03/19/22 Unknown History azathioprine 50 mg tablet 1 tab PO DAILY 03/19/22 03/19/22 Unknown History escitalopram oxalate 10 mg tablet 1 tab PO DAILY 03/19/22 03/19/22 Unknown History Physical Exam Vital Signs and Narrative: Vital Signs: Last Vital Signs Temp 99.4 F 03/19/22 21:30 Pulse 85 03/19/22 21:30 Resp 18 03/19/22 21:30 BP 187/106 H 03/19/22 21:30 Pulse Ox 100 03/19/22 20:18 O2 Del Method 03/19/22 20:18 BMI result Body Mass Index 21.9 Gen: Appears be in no acute distress HEENT: NCAT, Moist mucosa. Pulmonary: Vesicular breath sounds, fair air entry CVS: Normal S1-S2 Abdomen: BS+, Soft, Nontender Extremities: Warm well perfused; mild tenderness noted around the knees. No erythema or swelling noted on the knees, elbows, arteries bilaterally peak Neuro: Alert and awake. Oriented x3; grossly nonfocal; Results Labs CBC and Chem 7: 03/20/22 04:58 03/19/22 14:07 Labs: Laboratory Results - last 24 hr 03/19/22 03/19/22 03/19/22 14:07 14:07 14:07 MCV 89.6 MCH 28.0 MCHC 31.2 RDW 16.7 H Plt Count 181 D MPV 9.3 L Immature Gran % (Auto) 0.6 H Neut % (Auto) 78.9 H Lymph % (Auto) 13.6 L Yell % (Auto) 6.9 Eos % (Auto) 0.0 Baso % (Auto) 0.0 Lymph # (Auto) 0.6 L Yell # (Auto) 0.3 Eos # (Auto) 0.0 Baso # (Auto) 0.0 Abs Immat Gran (auto) 0.03 Absolute Neuts (auto) 3.7 Absolute Nucleated RBC 0.000 Nucleated RBC % (auto) 0.0 PT 10.1 INR 0.9 Anion Gap 11 L Estim Creat Clear Calc 53.2 Estimated GFR 40 Random Glucose 100 Calcium 8.0 L Iron 30 TIBC 189 L % Saturation 16 Unsat Iron Binding 159 Total Bilirubin 0.4 Direct Bilirubin < 0.2 AST 21 ALT < 6 Alkaline Phosphatase 35 L Troponin I High Sens C-Reactive Protein 0.28 Total Protein 5.7 L Albumin 2.8 L Urine Color Urine Appearance Urine pH Ur Specific [place] Urine Protein Urine Glucose (UA) Urine Ketones Urine Blood Urine Nitrite Ur Leukocyte Esterase Urine RBC Urine WBC Ur Squamous Epith Cells Urine Bacteria Urine Test Influenza Type A (PCR) Influenza Type B (PCR) RSV RNA Qual (PCR) SARS-CoV-2 RNA (RT-PCR) Blood Type Antibody Screen Crossmatch 03/19/22 03/19/22 03/19/22 14:50 14:50 16:24 MCV MCH MCHC RDW Plt Count MPV Immature Gran % (Auto) Neut % (Auto) Lymph % (Auto) Yell % (Auto) Eos % (Auto) Baso % (Auto) Lymph # (Auto) Yell # (Auto) Eos # (Auto) Baso # (Auto) Abs Immat Gran (auto) Absolute Neuts (auto) Absolute Nucleated RBC Nucleated RBC % (auto) PT INR Anion Gap Estim Creat Clear Calc Estimated GFR Random Glucose Calcium Iron TIBC % Saturation Unsat Iron Binding Total Bilirubin Direct Bilirubin AST ALT Alkaline Phosphatase Troponin I High Sens 197.5 H* D C-Reactive Protein Total Protein Albumin Urine Color Urine Appearance Urine pH Ur Specific [place] Urine Protein Urine Glucose (UA) Urine Ketones Urine Blood Urine Nitrite Ur Leukocyte Esterase Urine RBC Urine WBC Ur Squamous Epith Cells Urine Bacteria Urine Test Influenza Type A (PCR) NEGATIVE Influenza Type B (PCR) NEGATIVE RSV RNA Qual (PCR) NEGATIVE SARS-CoV-2 RNA (RT-PCR) NEGATIVE Blood Type A Positive Antibody Screen NEGATIVE Crossmatch See Detail 03/19/22 03/19/22 03/19/22 16:40 16:40 17:38 MCV MCH MCHC RDW Plt Count MPV Immature Gran % (Auto) Neut % (Auto) Lymph % (Auto) Yell % (Auto) Eos % (Auto) Baso % (Auto) Lymph # (Auto) Yell # (Auto) Eos # (Auto) Baso # (Auto) Abs Immat Gran (auto) Absolute Neuts (auto) Absolute Nucleated RBC Nucleated RBC % (auto) PT INR Anion Gap Estim Creat Clear Calc Estimated GFR Random Glucose Calcium Iron TIBC % Saturation Unsat Iron Binding Total Bilirubin Direct Bilirubin AST ALT Alkaline Phosphatase Troponin I High Sens 172.5 H* C-Reactive Protein Total Protein Albumin Urine Color YELLOW Urine Appearance HAZY Urine pH 6.5 Ur Specific [place] 1.015 Urine Protein 3+ H Urine Glucose (UA) NEG Urine Ketones NEG Urine Blood 3+ H Urine Nitrite NEG Ur Leukocyte Esterase NEG Urine RBC 15-29 H Urine WBC 5-9 H Ur Squamous Epith Cells 3+ Urine Bacteria TRACE Urine Test NEGATIVE Influenza Type A (PCR) Influenza Type B (PCR) RSV RNA Qual (PCR) SARS-CoV-2 RNA (RT-PCR) Blood Type Antibody Screen Crossmatch Assessment and Plan (1) Elevated troponin: Status: Acute (2) Anemia: Status: Acute (3) Lupus: Status: Acute (4) KALEIGH (acute kidney injury): Status: Acute (5) Hypertensive urgency: Status: Acute Plan 26-year-old female with a past medical history of hypertension, lupus, recent history of COVID-19 infection, renal insufficiency; presented to the hospital today with a chief complaint of diffuse body pains/chest pain. Noted to have following conditions Chest pain: Currently resolved. EKG nonischemic. Troponin-197->172->121. 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 Echo was within normal limits. Telemetry Cardiology consult Repeat echocardiogram Diffuse joint pains: Likely in setting of lupus. Will consult Rheumatology. Continue home azathioprine, prednisone, hydroxychloroquine No focal swelling or erythema noted on bilateral knees, wrists, elbows. Dilaudid p.r.n. KALEIGH: Patient does report poor oral intake for the past couple days. Baseline creatinine around 0.8. Creatinine presentation is 1.5. Patient has been following with Nephrology as outpatient. Nephrology consult Anemia: Likely in the setting of dysfunctional uterine bleeding. Patient's baseline hemoglobin is around 9.5. Hemoglobin on presentation was 7.8. Status post 1 unit of PRBC in the ER. The follow-up CBC appropriate improvement in her hemoglobin to 9.5. Dysfunctional uterine bleeding: [employer] follow-up Hypertensive urgency: Patient was recently prescribed HCTZ. BP on presentation was noted to be 209/119 CT head pending Labetalol p.r.n. Will give the patient on amlodipine 5 mg. Tobacco dependence: Counseled on smoking cessation. Patient denied nicotine patch. DVT prophylaxis: Lovenox Code status: Full code Quality Stroke Does the patient have a stroke diagnosis?: No VTE Prior VTE?: No VTE Risk Level:: Medical - moderate - high VTE Device Contraindication: Treatment Not Indicated VTE Drug Contraindication: N/A - Med Ordered
[2022-03-19] MEDS: HYDROmorphone HCl 0.5 MG/0.5 ML SYRINGE IVPUSH (23:19)
[2022-03-19] MEDS: Enoxaparin Sodium 40 MG/0.4 ML SYRINGE SUBCUT (23:21)
[2022-03-19 23:34] LABS: Hematocrit 29.3 % (37.0-47.0); Hemoglobin 9.5 g/dl (12.0-16.0); Imm Gran Abs Auto 0.02 X10*3/uL (0.00-0.03); Imm Gran Pct Auto 0.5 % (0.0-0.4); Lymphocytes Absolute Auto 0.3 X10*3/uL (1.2-4.9); Lymphocytes Percent Auto 7.6 % (20-40); MANUAL DIFF FLAG SCAN; Mean Corpuscular HGB Conc 32.4 g/dl (31.0-35.0); Mean Corpuscular Hemoglobin 29.2 pg (27.0-33.0); Mean Corpuscular Volume 90.2 fL (80.0-98.0); Mean Platelet Volume 9.1 fL (9.4-12.3); Monocytes Absolute Auto 0.1 X10*3/uL (0.1-1.2); Monocytes Percent Auto 1.6 % (2-11); Neutrophils Absolute Auto 3.4 x10*3/uL (2.0-8.3); Neutrophils Percent Auto 90.3 % (45-73); Platelet Count 162 X10*3/uL (160-400); Red Blood Count 3.25 X10*6/uL (4.20-5.50); SCAN SMEAR FLAG 1; White Blood Count 3.8 X10*3/uL (4.8-10.8)
[2022-03-19 23:58] LABS: Troponin-I High Sensitivity 121.5 ng/L (<3.5-17.0)
[2022-03-20] VITALS (18 sets, daily range): BP systolic 138–205; BP diastolic 98–125; PULSE 78–92; RESP 14–22; TEMP 36.3–37; O2SAT 98–100; BMI 23.1
[2022-03-20 00:04] LABS: SLIDE REVIEW VERIFIED
[2022-03-20] MEDS: Acetaminophen 325 MG TABLET 650 MG PO (00:37)
[2022-03-20] MEDS: Melatonin 3 MG TABLET 6 MG PO (00:37)
[2022-03-20] MEDS: 0.9 % Sodium Chloride Flush 3 ML SYRINGE IVFLUSH ×3 (01:49→21:39)
[2022-03-20] MEDS: HYDROmorphone HCl 0.5 MG/0.5 ML SYRINGE IVPUSH (04:20)
[2022-03-20 05:09] LABS: MANUAL DIFF FLAG NO
[2022-03-20 05:10] LABS: Hemoglobin 9.4 g/dl (12.0-16.0); Imm Gran Abs Auto 0.01 X10*3/uL (0.00-0.03); Imm Gran Pct Auto 0.4 % (0.0-0.4); Lymphocytes Absolute Auto 0.5 X10*3/uL (1.2-4.9); Lymphocytes Percent Auto 18.4 % (20-40); Mean Corpuscular HGB Conc 31.3 g/dl (31.0-35.0); Mean Corpuscular Hemoglobin 28.5 pg (27.0-33.0); Mean Corpuscular Volume 90.9 fL (80.0-98.0); Mean Platelet Volume 9.9 fL (9.4-12.3); Monocytes Absolute Auto 0.1 X10*3/uL (0.1-1.2); Monocytes Percent Auto 5.2 % (2-11); Platelet Count 177 X10*3/uL (160-400); Red Cell Distribution Width 15.8 % (11.0-16.0); White Blood Count 2.7 X10*3/uL (4.8-10.8)
[2022-03-20 05:36] LABS: Magnesium 2.3 mg/dL (1.6-2.6)
[2022-03-20 05:46] LABS: Anion Gap 11 (12-20); Blood Urea Nitrogen 29 mg/dL (9-16); Calcium 7.1 mg/dL (8.4-10.2); Carbon Dioxide 18 mmol/L (22-29); Chloride 115 mmol/L (96-108); Creatinine Clr Calc Pharmacy 29.2; Estimated Glomerular Filt Rate 20; Glucose Random 228 mg/dL (60-115); Potassium 5.1 mmol/L (3.3-5.1); Sodium 139 mmol/L (135-145)
--- NOTE | 2022-03-20 07:00 | CA_ITS ---
Transthoracic Echocardiogram Patient (Last, First, Middle): Trey Maharaj, Gender: Female Date of : 1995 Age: 26 Procedure Date: 03/20/2022 Procedure Type: Transthoracic Echocardiogram [place] [facility] [place]: 170.18 cm Weight: 63.5 kg BSA: 1.74 m2 Heart Rate: bpm BP: 190 / 116 mmHg Loss Prevention Coordinator: Referring MD: Meek Padilla MD Symptoms: Elevated troponins Study Quality: Fair ECG Rhythm: Sinus Conclusions: - Normal left ventricular size and systolic function. There is moderately increased left ventricular wall thickness. The visually estimated ejection fraction is between 60-65%. - There is no evidence of regional wall motion abnormalities. - E/E prime ratio is >15, consistent with elevated filling pressures. - Normal right ventricular cavity size and systolic function. - The left atrium is severely dilated. - There are no definitive echocardiographic findings of tamponade physiology. There is trivial circumferential pericardial effusion with small to moderate sized loculated effusion anteriorly along the RV. Findings Left Ventricle Normal left ventricular size and systolic function. There is moderately increased left ventricular wall thickness. The visually estimated ejection fraction is between 60-65%. There is no evidence of regional wall motion abnormalities. Abnormal diastolic function is noted. Spectral Doppler is indicative of a pseudonormal filling pattern. E/E prime ratio is >15, consistent with elevated filling pressures. Right Ventricle Normal right ventricular cavity size and systolic function. Atria The left atrium is severely dilated. Aortic Valve Normal aortic valve structure and function. There is no aortic valve stenosis. There is no aortic valve regurgitation. Mitral Valve The mitral valve appears normal. There is trace mitral valve regurgitation. There is no mitral valve stenosis. Pulmonic Valve Normal pulmonic valve structure and function. There is trace pulmonic valve regurgitation. Tricuspid Valve Normal tricuspid valve structure. There is trace tricuspid valve regurgitation. Normal right atrial pressure. There is no evidence of pulmonary hypertension. Great Vessels All visible segments of the aorta are normal in size. The visualized portions of the pulmonary artery and branches are normal. Venous The inferior vena cava is normal in size and collapses greater than 50% with inspiration. Pericardium/Pleural There are no definitive echocardiographic findings of tamponade physiology. There is trivial circumferential pericardial effusion with small to moderate sized loculated effusion anteriorly along the RV. Prior Study Comparison Changes noted compared to prior study dated: 01/18/2021. EF 60-65%, Elevated filling pressures, severely dilated LA, moderate loculated effusion around RV, no tamponade. Measurements 2D Linear Measurements IVSd: 1.27 0.6-0.9/0.6-1.0 cm LVIDd: 4.97 3.9-5.3/4.2-5.9 cm LVIDd Index: 2.86 2.4-3.2/2.2-3.1 cm/m2 LVIDs: 3.05 2.0-3.6 cm LVPWd: 1.28 0.7-1.1 cm Ao Root: 2.80 2.1-3.5 cm LA Diam: 3.40 2.7-3.8/3.0-4.0 cm LAIDs Index: 1.95 1.5-2.3 cm/m2 LV Mass: 314.60 67-162/88-224 g LV Mass Index: 180.80 43-95/49-115 g/m2 LVOT Diam: 2.30 3.0+(-)1.3 cm Mitral Valve MV Pk E: 1.45 MV PK A: 0.94 MV Decel Time: 208.00 E/A: 1.50 E'Lateral: 11.00 E'Medial: 6.85 E/E' Med: 21.20 E/E' Lat: 13.20 PHT: 61.00 MVA PHT: 3.61 Decel [place]: 6.95 Aortic Valve AoV Pk Didier: 1.26 AoV Mn Didier: 0.79 AoV VTI: 0.32 AoV Pk Grad: 6.00 Aov Mn Grad: 3.00 JASPAL Cont.VTI: 2.77 LVOT LVOT Pk Didier: 0.95 LVOT Mn Didier: 0.70 LVOT VTI: 0.22 LVOT Pk Grad: 4.00 LVOT Mn Grad: 2.00 LVOT Diam: 2.30 LVOT Area: 4.15 Diastolic Function MV Pk E: 1.45 MV Pk A: 0.94 E/A: 1.50 E'Medial: 6.85 E/E' Med: 21.20 E' Laterial: 11.00 E/E' Lat: 13.20 Right Ventricle TAPSE (mm): 24.00 TVS' Didier: 12.00 Tricuspid Valve TR Pk Didier: 1.95 TR Pk Grad: 15.00 RA Press: 3.00 RVSP: 18.00 Great Vessels Aorta Ao Root-2D: 2.80 2.0-3.7 cm Ao Asc: 2.80 2.1-3.4 cm Pulmonary Valve PV Pk Didier: 1.08 Peak PV Grad: 5.00 Updated in Other Vendor System with Status of Final Selvin López MD electronically signed on 03/20/2022 5:48:06 PM with status of Final
[2022-03-20] MEDS: Hydroxychloroquine Sulfate 200 MG TABLET 300 MG PO (07:30)
[2022-03-20] MEDS: predniSONE 20 MG TABLET PO (07:31)
[2022-03-20] MEDS: amLODIPine Besylate 5 MG TABLET PO (07:31)
[2022-03-20] MEDS: Escitalopram Oxalate 10 MG TABLET PO (07:31)
[2022-03-20] MEDS: azaTHIOprine 50 MG TABLET PO (07:46)
[2022-03-20] MEDS: HYDROmorphone HCl 0.5 MG/0.5 ML SYRINGE 1 MG IVPUSH ×2 (07:55→14:02)
--- NOTE | 2022-03-20 08:00 | PC.NURSE ---
PATIENT IS A/O X4 . PEARRLA. SKIN IS WARM PINK AND DRY . LUNGS CLEAR . ABDOMEN SOFT AND DISTENDED, PATIENT REPORTS SOFT YELLOW STOOLS . C/O OF VAGINAL BLEEDING FOR THE LAST THREE MONTHS . PATIENT REPORTS 10/10 PAIN LEVEL HER JOINTS , PROVIDER CONTACTED ORDER OBTAINED FOR DILIUDED 1 MG . PT HYPERTENSIVE AT 185/108 PROVIDER AWARE ORDERS BEING OBTAINED TO MANAGE BP BY PROVIDER . PATIENT AWARE OF PLAN OF CARE .
--- NOTE | 2022-03-20 08:11 | PC.NURSE ---
RN to RN given to Sharon . patient aware of plan of care for patient to transport . patient will change when she has had chance or medication to have effect on pain level .
--- NOTE | 2022-03-20 09:16 | PC.NURSE ---
DR PAREDES AT BEDSIDE PREFORMING PELVIC EXAM R/T PT. REPORT OF HX OF VAGINAL BLEEDING . PATIENT AWARE OF PLAN OF CARE .
--- NOTE | 2022-03-20 09:20 | P.CONOB_ITS ---
GRIEF COUNSELLOR - CN: HPI Data of Consult Consult date: 03/20/22 Requesting Physician: Liudmila Jiang MD Primary Care Provider: Unknown Physician Consult Narrative Narrative: I was consulted Trey Canales who is a 26 year old female who presented emergency room yesterday complaining of diffuse body aches and chest pain.? The patient reported that for the past few days she has been having generalized weakness and joint pains.? Also had an episode of chest pain prior to coming to the hospital, sharp in nature, nonradiating, no associated nausea vomiting light headedness or dizziness.?? In the emergency room the patient was noted to have elevated creatinine ; hemoglobin slightly dropped.? Patient was transfused 1 unit of PRBC.? Also noted to have elevated blood pressure.? Troponins elevated but trending down; EKG was nonischemic; patient was chest pain-free.? Admitted to the hospital for further management The patient gives a history of abnormal uterine bleeding associated with passage of blood clots and pelvic cramping over the last 3 months.? No other associated symptoms. Nexplanon was inserted more than 3 years ago was due to be taken out in October 2021 cc:: CC: Liudmila Jiang MD BOAT GARNISHER - Review of Systems Review of Systems ROS Unobtainable: All systems reviewed & are unremarkable except as noted in HPI and below Cardiovascular: Denies Palpatations, Loss of consciousness or Chest pain Respiratory: Denies Cough, Wheezing or Shortness of breath Musculoskeletal: Denies Low back pain Gastrointestinal: Denies Heartburn, Constipation, Diarrhea, Nausea or Vomiting Genitourinary: Denies Pain with urination, Burning with urination or Urinary frequency Neurological: Denies Migranes Psychological: Denies Depression OB PMFSH Past Medical History Medical History Anxiety Depression Fibromyalgia Lupus Social History Social History Household Members: Spouse, Family and Children Housing: Apartment Do you presently have visiting nurse or other home services: Yes Alcohol intake: former Patient Tobacco Use Status: Current everyday Tobacco user Cigarette Packs Per Day: 0.5 Cigarettes Per Day: 10.0 Years Smoked: 7 Substance Use Type: Marijuana Advance Directives: Yes Advance Directives on File: Yes Advance Directives Date on File: 01/18/21 Patient : No service: No Current occupational status: disabled Meds Allergies Allergy/AdvReac Type Severity Reaction Status Date / Time No Known Allergies Allergy Verified 03/19/22 13:53 Active Medications: Current Medications Acetaminophen (Acetaminophen 325 Mg Tablet) 650 mg PO Q6H PRN PRN Reason: Pain, Mild (Pain Scale 1-3) Last Admin: 03/20/22 00:37 Dose: 650 mg Amlodipine Besylate (Amlodipine Besylate 5 Mg Tablet) 5 mg PO DAILY [facility]; Protocol Last Admin: 03/20/22 07:31 Dose: 5 mg Azathioprine (Azathioprine 50 Mg Tablet) 50 mg PO DAILY [facility] Last Admin: 03/20/22 07:46 Dose: 50 mg Escitalopram Oxalate (Escitalopram Oxalate 10 Mg Tablet) 10 mg PO DAILY [facility] Last Admin: 03/20/22 07:31 Dose: 10 mg Hydromorphone HCl (Hydromorphone Hcl 0.5 Mg/0.5 Ml Syringe) 1 mg IVPUSH Q4H PRN; Protocol PRN Reason: Pain, Severe (Pain Scale 7-10) Last Admin: 03/20/22 07:55 Dose: 1 mg Hydroxychloroquine Sulfate (Hydroxychloroquine Sulfate 200 Mg Tablet) 300 mg PO DAILY [facility] Last Admin: 03/20/22 07:30 Dose: 300 mg Labetalol HCl (Labetalol Hcl 20 Mg/4 Ml Syringe) 10 mg IVPUSH Q4H PRN PRN Reason: BP>160/90 Last Admin: 03/20/22 00:43 Dose: 10 mg Melatonin (Melatonin 3 Mg Tablet) 6 mg PO BEDTIME PRN PRN Reason: Insomnia Last Admin: 03/20/22 00:37 Dose: 6 mg Prednisone (Prednisone 20 Mg Tablet) 20 mg PO DAILY [facility] Last Admin: 03/20/22 07:31 Dose: 20 mg Senna (Sennosides 8.6 Mg Tablet) 17.2 mg PO BEDTIME PRN PRN Reason: Constipation Sodium Chloride (0.9 % Sodium Chloride Flush 3 Ml Syringe) 3 ml IVFLUSH QSHIFT [facility] Last Admin: 03/20/22 07:33 Dose: 3 ml Home Medications Medication Instructions Recorded Confirmed Last Taken Type hydroxychloroquine 200 mg tablet 300 mg PO DAILY 01/18/21 03/19/2221 History acetaminophen 500 mg tablet 1 - 2 tab PO QD-TID PRN Pain 03/19/22 03/19/22 Unknown History azathioprine 50 mg tablet 1 tab PO DAILY 03/19/22 03/19/22 Unknown History escitalopram oxalate 10 mg tablet 1 tab PO DAILY 03/19/22 03/19/22 Unknown History GRIEF COUNSELLOR Physical Exam Vitals Vital signs: Temp Pulse Resp BP Pulse Ox O2 Del Method 97.8 F 84 18 185/108 H 100 03/20/22 07:36 03/20/22 07:36 03/20/22 07:36 03/20/22 07:36 03/20/22 07:36 03/20/22 06:49 BMI result Body Mass Index 21.9 Constitutional General Appearance: Healthy appearing, Well-nourished and Well-developed Psychiatric Mood and Affect: active and alert, normal mood and normal affect Skin Appearance: No rashes and No lesions Female Genitalia (Pelvic) Vulva: No lesions Vagina: Nontender, No erythema and Normal discharge Cervix: Grossly normal Uterus: Normal size Adnexa/Parametria: Adnexal Tenderness: None, Adnexal Mass: None, Parametrial Tenderness: None and Parametrial Mass: None GRIEF COUNSELLOR - Results Labs CBC & Chem 7: 03/20/22 04:58 03/20/22 04:58 Labs: Short CBC 03/19/22 03/19/22 03/20/22 Range/Units 14:07 23:28 04:58 WBC 4.6 L 3.8 L 2.7 L (4.8-10.8) X10*3/uL Hgb 7.8 L 9.5 L D 9.4 L (12.0-16.0) g/dl Hct 25.0 L 29.3 L 30.0 L (37.0-47.0) % Plt Count 181 D 162 177 (160-400) X10*3/uL BMP 03/19/22 03/20/22 14:07 04:58 Sodium 138 139 Potassium 4.5 5.1 Chloride 113 H 115 H Carbon Dioxide 19 L 18 L BUN 23 H D 29 H Creatinine 1.53 H 2.79 H Calcium 8.0 L 7.1 L D Liver Function 03/19/22 Range/Units 14:07 Total Bilirubin 0.4 (0.0-1.0) mg/dL Direct Bilirubin < 0.2 (0.0-0.5) mg/dL AST 21 (5-31) U/L ALT < 6 (0-31) U/L Alkaline Phosphatase 35 L (39-117) U/L Albumin 2.8 L (3.5-5.0) g/dL Urine 03/19/22 03/19/22 Range/Units 16:40 16:40 Urine Color YELLOW Urine Appearance HAZY Urine pH 6.5 (5.0-8.0) Ur Specific [place] 1.015 (1.005-1.025) Urine Protein 3+ H (NEG-TRACE) MG/DL Urine Glucose (UA) NEG (NEG) MG/DL Urine Test NEGATIVE (NEGATIVE) Antibody Screen Antibody Screen NEGATIVE 03/19/22 16:24 Assessment and Plan (1) Abnormal uterine bleeding: Status: Acute GC and chlamydia, BV panel and Trichomonas taken, TSH and ultrasound of the pelvis ordered. Discussed with the patient the different causes of abnormal bleeding including but not limited to thyroid disorders, uterine and ovarian pathology, and other potential causes. Discussed with the patient the work up including CBC (done showing an anemia, improved after 1 unit of blood transfusion), TSH, pelvic Ultrasound. In addition, I explained to the patient the options of treatment including but not limited to: Lysteda, control pills (both contraindicated in patient with lupus because of the increased risk of thrombosis), progesterone treatment continuous versus cyclic but without contraceptive effect or Mirena IUD. All pros, cons, risks and benefits if each option was discussed with the patient and the patient decided to go ahead with Mirena IUD so a more detailed discussion about it was conducted including mechanism of action, risks (uterine perforation, infection, injury to bladder, bowel, displacement, and others) benefits (hypo menorrhea, amenorrhea, ...). Since Nexplanon is overdue to be taken out, and the patient is not having any current vaginal bleeding, instructed the patient to schedule Nexplanon removal and Mirena IUD insertion in the office KIM, within day or two after discharge, unless the patient starts having vaginal bleeding prior to discharge. All questions answered and the patient verbalized understanding. This note was generated with a voice recognition program. Some errors may have been overlooked during the review of this note. Sometimes these errors may affect the content or meaning of a given sentence.
--- NOTE | 2022-03-20 09:24 | PC.NURSE ---
DR PAREDES TO CONTACT PATIENT OBGYN FOR CONSULTATION FOR WHEN CONTROL IMPLANT WAS PUT IN ARM. PATIENT AWARE OF PLAN OF CARE .
--- NOTE | 2022-03-20 09:59 | PC.NURSE ---
ultrasound at bedside . patient aware of plan of care .
[2022-03-20 11:15] LABS: Creatinine Urine 95.96 mg/dL
--- NOTE | 2022-03-20 11:18 | PC.NURSE ---
ECHO BEING PREFORMED AT BEDSIDE PATIENT AWARE OF PLAN OF CARE .
[2022-03-20] MEDS: Sodium Zirconium Cyclosilicate 5 GM POWD.PACK PO (12:12)
[2022-03-20] MEDS: Labetalol HCL 100 MG TABLET PO ×2 (12:12→21:39)
[2022-03-20] MEDS: Omeprazole 40 MG CAPSULE.DR PO ×2 (12:12→15:10)
[2022-03-20] MEDS: 0.9 % Sodium Chloride 1,000 ML 100 ML IVCONT ×2 (12:15→21:36)
[2022-03-20 12:16] LABS: TSH reflex Free T4 0.49 uIU/mL (0.32-4.0)
[2022-03-20 12:39] LABS: Lactate Dehydrogenase 409 U/L (122-220)
--- NOTE | 2022-03-20 12:50 | P.CONCA_ITS ---
History of Present Illness History of Present Illness Date of Service: 03/20/22 Requesting physician: Liudmila Jiang Chief complaint: KALEIGH, elevated troponin Narrative: 26-year-old female with background history of systemic lupus erythematosus who is presenting for generalized aches, joint pains and chest pain we have been asked to comment about her mildly elevated troponin levels. She has known chronic kidney disease and hypertension. Her blood pressures are significantly elevated. Her high sensitivity troponin levels were 197, 172 and 121. She is saying that she feels occasionally a fluttering sensation/palpitations in the chest and at the same time also feels slight pressure on the left side of her chest which lasts for 1-2 sec. There is no reproducible chest discomfort or any pleuritic chest pain. She has significantly abnormal kidney function and Nephrology is following her for concern for active lupus nephritis. [facility] Past Medical History Medical History Anxiety Depression Fibromyalgia Lupus Social History Social History Household Members: Spouse, Family and Children Housing: Apartment Do you presently have visiting nurse or other home services: Yes Alcohol intake: former Patient Tobacco Use Status: Current everyday Tobacco user Cigarette Packs Per Day: 0.5 Cigarettes Per Day: 10.0 Years Smoked: 7 Substance Use Type: Marijuana Advance Directives: Yes Advance Directives on File: Yes Advance Directives Date on File: 01/18/21 Patient : No service: No Current occupational status: disabled Meds Allergies Allergy/AdvReac Type Severity Reaction Status Date / Time No Known Allergies Allergy Verified 03/19/22 13:53 Active Medications: Current Medications Acetaminophen (Acetaminophen 325 Mg Tablet) 650 mg PO Q6H PRN PRN Reason: Pain, Mild (Pain Scale 1-3) Last Admin: 03/20/22 00:37 Dose: 650 mg Amlodipine Besylate (Amlodipine Besylate 5 Mg Tablet) 5 mg PO DAILY [facility]; Protocol Last Admin: 03/20/22 07:31 Dose: 5 mg Azathioprine (Azathioprine 50 Mg Tablet) 50 mg PO DAILY [facility] Last Admin: 03/20/22 07:46 Dose: 50 mg Escitalopram Oxalate (Escitalopram Oxalate 10 Mg Tablet) 10 mg PO DAILY [facility] Last Admin: 03/20/22 07:31 Dose: 10 mg Hydromorphone HCl (Hydromorphone Hcl 0.5 Mg/0.5 Ml Syringe) 1 mg IVPUSH Q4H PRN; Protocol PRN Reason: Pain, Severe (Pain Scale 7-10) Last Admin: 03/20/22 07:55 Dose: 1 mg Hydroxychloroquine Sulfate (Hydroxychloroquine Sulfate 200 Mg Tablet) 300 mg PO DAILY [facility] Last Admin: 03/20/22 07:30 Dose: 300 mg Sodium Chloride (Ns) 1,000 mls @ 100 mls/hr IVCONT .Q10H [facility] Last Admin: 03/20/22 12:15 Dose: 100 mls/hr Methylprednisolone Sodium Succinate 1,000 mg/ Sodium Chloride 66 mls @ 66 mls/hr IV Q24H [facility] Stop: 03/22/22 13:59 Labetalol HCl (Labetalol Hcl 100 Mg Tablet) 100 mg PO BID [facility]; Protocol Last Admin: 03/20/22 12:12 Dose: 100 mg Melatonin (Melatonin 3 Mg Tablet) 6 mg PO BEDTIME PRN PRN Reason: Insomnia Last Admin: 03/20/22 00:37 Dose: 6 mg Mycophenolate Mofetil (Mycophenolate Mofetil 250 Mg Capsule) 500 mg PO BID [facility] Omeprazole (Omeprazole 40 Mg Capsule.Dr) 40 mg PO BID@0630,1630 [facility] Last Admin: 03/20/22 12:12 Dose: 40 mg Senna (Sennosides 8.6 Mg Tablet) 17.2 mg PO BEDTIME PRN PRN Reason: Constipation Sodium Chloride (0.9 % Sodium Chloride Flush 3 Ml Syringe) 3 ml IVFLUSH QSHIFT [facility] Last Admin: 03/20/22 07:33 Dose: 3 ml Sodium Zirconium Cyclosilicate (Sodium Zirconium Cyclosilicate 5 Gm Powd.Pack) 5 gm PO DAILY [facility] Last Admin: 03/20/22 12:12 Dose: 5 gm Home Medications Medication Instructions Recorded Confirmed Last Taken Type hydroxychloroquine 200 mg tablet 300 mg PO DAILY 01/18/21 03/19/22 01/17/21 History acetaminophen 500 mg tablet 1 - 2 tab PO QD-TID PRN Pain 03/19/22 03/19/22 Unknown History azathioprine 50 mg tablet 1 tab PO DAILY 03/19/22 03/19/22 Unknown History escitalopram oxalate 10 mg tablet 1 tab PO DAILY 03/19/22 03/19/22 Unknown History Physical Exam Vital Signs: Vital Signs: Last Vital Signs Temp 98.6 F 03/20/22 11:43 Pulse 82 03/20/22 11:43 Resp 16 03/20/22 11:43 BP 189/114 H 03/20/22 11:43 Pulse Ox 100 03/20/22 11:43 O2 Del Method 03/20/22 11:43 BMI result Body Mass Index 21.9 GENERAL APPEARANCE: in no acute distress. NECK: no carotid bruit, no jugular venous distention. SKIN: no suspicious lesions, warm and dry. HEART: no murmurs, regular rate and rhythm. LUNGS: clear to auscultation bilaterally. ABDOMEN: soft, nontender. EXTREMITIES: no edema. PERIPHERAL PULSES: equal. NEUROLOGIC: No gross deficits, AAO X 3 Objective Labs and Meds Result diagrams: 03/20/22 04:58 03/20/22 04:58 Lab results: Laboratory Results - last 24 hr 03/19/22 03/19/22 03/19/22 14:07 14:07 14:07 WBC 4.6 L RBC 2.79 L Hgb 7.8 L Hct 25.0 L MCV 89.6 MCH 28.0 MCHC 31.2 RDW 16.7 H Plt Count 181 D MPV 9.3 L Immature Gran % (Auto) 0.6 H Neut % (Auto) 78.9 H Lymph % (Auto) 13.6 L [place] % (Auto) 6.9 Eos % (Auto) 0.0 Baso % (Auto) 0.0 Lymph # (Auto) 0.6 L [place] # (Auto) 0.3 Eos # (Auto) 0.0 Baso # (Auto) 0.0 Abs Immat Gran (auto) 0.03 Absolute Neuts (auto) 3.7 Absolute Nucleated RBC 0.000 Nucleated RBC % (auto) 0.0 Smear Tech's Comments PT 10.1 INR 0.9 Sodium 138 Potassium 4.5 Chloride 113 H Carbon Dioxide 19 L Anion Gap 11 L BUN 23 H D Creatinine 1.53 H Estim Creat Clear Calc 53.2 Estimated GFR 40 Random Glucose 100 Calcium 8.0 L Magnesium Iron 30 TIBC 189 L % Saturation 16 Unsat Iron Binding 159 Total Bilirubin 0.4 Direct Bilirubin < 0.2 AST 21 ALT < 6 Alkaline Phosphatase 35 L Lactate Dehydrogenase Troponin I High Sens C-Reactive Protein 0.28 Total Protein 5.7 L Albumin 2.8 L TSH Urine Color Urine Appearance Urine pH Ur Specific [place] Urine Protein Urine Glucose (UA) Urine Ketones Urine Blood Urine Nitrite Ur Leukocyte Esterase Urine RBC Urine WBC Ur Squamous Epith Cells Urine Bacteria Urine Creatinine Urine Test Influenza Type A (PCR) Influenza Type B (PCR) RSV RNA Qual (PCR) SARS-CoV-2 RNA (RT-PCR) Blood Type Antibody Screen Crossmatch 03/19/22 03/19/22 03/19/22 14:50 14:50 16:24 WBC RBC Hgb Hct MCV MCH MCHC RDW Plt Count MPV Immature Gran % (Auto) Neut % (Auto) Lymph % (Auto) [place] % (Auto) Eos % (Auto) Baso % (Auto) Lymph # (Auto) [place] # (Auto) Eos # (Auto) Baso # (Auto) Abs Immat Gran (auto) Absolute Neuts (auto) Absolute Nucleated RBC Nucleated RBC % (auto) Smear Tech's Comments PT INR Sodium Potassium Chloride Carbon Dioxide Anion Gap BUN Creatinine Estim Creat Clear Calc Estimated GFR Random Glucose Calcium Magnesium Iron TIBC % Saturation Unsat Iron Binding Total Bilirubin Direct Bilirubin AST ALT Alkaline Phosphatase Lactate Dehydrogenase Troponin I High Sens 197.5 H* D C-Reactive Protein Total Protein Albumin TSH Urine Color Urine Appearance Urine pH Ur Specific [place] Urine Protein Urine Glucose (UA) Urine Ketones Urine Blood Urine Nitrite Ur Leukocyte Esterase Urine RBC Urine WBC Ur Squamous Epith Cells Urine Bacteria Urine Creatinine Urine Test Influenza Type A (PCR) NEGATIVE Influenza Type B (PCR) NEGATIVE RSV RNA Qual (PCR) NEGATIVE SARS-CoV-2 RNA (RT-PCR) NEGATIVE Blood Type A Positive Antibody Screen NEGATIVE Crossmatch See Detail 03/19/22 03/19/22 03/19/22 16:40 16:40 16:40 WBC RBC Hgb Hct MCV MCH MCHC RDW Plt Count MPV Immature Gran % (Auto) Neut % (Auto) Lymph % (Auto) [place] % (Auto) Eos % (Auto) Baso % (Auto) Lymph # (Auto) [place] # (Auto) Eos # (Auto) Baso # (Auto) Abs Immat Gran (auto) Absolute Neuts (auto) Absolute Nucleated RBC Nucleated RBC % (auto) Smear Tech's Comments PT INR Sodium Potassium Chloride Carbon Dioxide Anion Gap BUN Creatinine Estim Creat Clear Calc Estimated GFR Random Glucose Calcium Magnesium Iron TIBC % Saturation Unsat Iron Binding Total Bilirubin Direct Bilirubin AST ALT Alkaline Phosphatase Lactate Dehydrogenase Troponin I High Sens C-Reactive Protein Total Protein Albumin TSH Urine Color YELLOW Urine Appearance HAZY Urine pH 6.5 Ur Specific [place] 1.015 Urine Protein 3+ H Urine Glucose (UA) NEG Urine Ketones NEG Urine Blood 3+ H Urine Nitrite NEG Ur Leukocyte Esterase NEG Urine RBC 15-29 H Urine WBC 5-9 H Ur Squamous Epith Cells 3+ Urine Bacteria TRACE Urine Creatinine 95.96 Urine Test NEGATIVE Influenza Type A (PCR) Influenza Type B (PCR) RSV RNA Qual (PCR) SARS-CoV-2 RNA (RT-PCR) Blood Type Antibody Screen Crossmatch 03/19/22 03/19/22 03/19/22 17:38 23:28 23:28 WBC 3.8 L RBC 3.25 L Hgb 9.5 L D Hct 29.3 L MCV 90.2 MCH 29.2 MCHC 32.4 RDW 16.0 Plt Count 162 MPV 9.1 L Immature Gran % (Auto) 0.5 H Neut % (Auto) 90.3 H Lymph % (Auto) 7.6 L [place] % (Auto) 1.6 L Eos % (Auto) 0.0 Baso % (Auto) 0.0 Lymph # (Auto) 0.3 L [place] # (Auto) 0.1 Eos # (Auto) 0.0 Baso # (Auto) 0.0 Abs Immat Gran (auto) 0.02 Absolute Neuts (auto) 3.4 Absolute Nucleated RBC 0.000 Nucleated RBC % (auto) 0.0 Smear Tech's Comments VERIFIED PT INR Sodium Potassium Chloride Carbon Dioxide Anion Gap BUN Creatinine Estim Creat Clear Calc Estimated GFR Random Glucose Calcium Magnesium Iron TIBC % Saturation Unsat Iron Binding Total Bilirubin Direct Bilirubin AST ALT Alkaline Phosphatase Lactate Dehydrogenase Troponin I High Sens 172.5 H* 121.5 H* C-Reactive Protein Total Protein Albumin TSH Urine Color Urine Appearance Urine pH Ur Specific [place] Urine Protein Urine Glucose (UA) Urine Ketones Urine Blood Urine Nitrite Ur Leukocyte Esterase Urine RBC Urine WBC Ur Squamous Epith Cells Urine Bacteria Urine Creatinine Urine Test Influenza Type A (PCR) Influenza Type B (PCR) RSV RNA Qual (PCR) SARS-CoV-2 RNA (RT-PCR) Blood Type Antibody Screen Crossmatch 03/20/22 03/20/22 03/20/22 04:58 04:58 04:58 WBC 2.7 L RBC 3.30 L Hgb 9.4 L Hct 30.0 L MCV 90.9 MCH 28.5 MCHC 31.3 RDW 15.8 Plt Count 177 MPV 9.9 Immature Gran % (Auto) 0.4 Neut % (Auto) 76.0 H Lymph % (Auto) 18.4 L [place] % (Auto) 5.2 Eos % (Auto) 0.0 Baso % (Auto) 0.0 Lymph # (Auto) 0.5 L [place] # (Auto) 0.1 Eos # (Auto) 0.0 Baso # (Auto) 0.0 Abs Immat Gran (auto) 0.01 Absolute Neuts (auto) 2.0 Absolute Nucleated RBC 0.000 Nucleated RBC % (auto) 0.0 Smear Tech's Comments PT INR Sodium 139 Potassium 5.1 Chloride 115 H Carbon Dioxide 18 L Anion Gap 11 L BUN 29 H Creatinine 2.79 H Estim Creat Clear Calc 29.2 Estimated GFR 20 Random Glucose 228 H Calcium 7.1 L D Magnesium 2.3 Iron TIBC % Saturation Unsat Iron Binding Total Bilirubin Direct Bilirubin AST ALT Alkaline Phosphatase Lactate Dehydrogenase Troponin I High Sens C-Reactive Protein Total Protein Albumin TSH Urine Color Urine Appearance Urine pH Ur Specific [place] Urine Protein Urine Glucose (UA) Urine Ketones Urine Blood Urine Nitrite Ur Leukocyte Esterase Urine RBC Urine WBC Ur Squamous Epith Cells Urine Bacteria Urine Creatinine Urine Test Influenza Type A (PCR) Influenza Type B (PCR) RSV RNA Qual (PCR) SARS-CoV-2 RNA (RT-PCR) Blood Type Antibody Screen Crossmatch 03/20/22 03/20/22 04:58 12:10 WBC RBC Hgb Hct MCV MCH MCHC RDW Plt Count MPV Immature Gran % (Auto) Neut % (Auto) Lymph % (Auto) [place] % (Auto) Eos % (Auto) Baso % (Auto) Lymph # (Auto) [place] # (Auto) Eos # (Auto) Baso # (Auto) Abs Immat Gran (auto) Absolute Neuts (auto) Absolute Nucleated RBC Nucleated RBC % (auto) Smear Tech's Comments PT INR Sodium Potassium Chloride Carbon Dioxide Anion Gap BUN Creatinine Estim Creat Clear Calc Estimated GFR Random Glucose Calcium Magnesium Iron TIBC % Saturation Unsat Iron Binding Total Bilirubin Direct Bilirubin AST ALT Alkaline Phosphatase Lactate Dehydrogenase 409 H Troponin I High Sens C-Reactive Protein Total Protein Albumin TSH 0.49 Urine Color Urine Appearance Urine pH Ur Specific [place] Urine Protein Urine Glucose (UA) Urine Ketones Urine Blood Urine Nitrite Ur Leukocyte Esterase Urine RBC Urine WBC Ur Squamous Epith Cells Urine Bacteria Urine Creatinine Urine Test Influenza Type A (PCR) Influenza Type B (PCR) RSV RNA Qual (PCR) SARS-CoV-2 RNA (RT-PCR) Blood Type Antibody Screen Crossmatch Imaging Radiologist's impression: Impressions Head CT 03/20/22 05:45 IMPRESSION: No acute intracranial pathology. Assessment and Plan (1) Elevated troponin: Status: Acute (2) Hypertensive urgency: Status: Acute Plan 26-year-old female who is presenting for generalized pain, joint pains and chest pain in the setting of elevated blood pressures and worsening kidney function on background of SLE. She is being worked up for lupus nephritis. Blood pressure is significantly elevated. Increase hydralazine to 50 mg 3 times a day. On amlodipine 10 mg daily. She is getting steroids and immunosuppressants for lupus nephritis. Her mildly abnormal troponin levels are likely type 2 injury in the setting of high blood pressure and advanced kidney issues. Clinical story is not consistent with acute coronary syndrome and she does not require heparin drip or any further workup. I think main issue is the kidney trouble currently which he is being managed by the Nephrology team. We will be available for advised if any questions arise but signing off for now. Thank you for allowing me to participate in the care of your patient. Please feel free to contact me if you have any questions. Procedures Date of Service Date of Service: 03/20/22
--- NOTE | 2022-03-20 12:57 | CONS_ITS ---
DATE OF SERVICE: 03/20/2022 REASON FOR CONSULTATION: I was called to see this patient to assist in the management of acute kidney injury. HISTORY OF PRESENT ILLNESS: To summarize, Trey is a 26-year-old woman with history of lupus nephritis. She was being treated with azathioprine, hydroxychloroquine, and prednisone 20 mg a day. She has a baseline creatinine 0.8 mg/dL. In June 2021, she underwent a kidney biopsy and flow-glomeruli were sampled. 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 However, at this point, she did not come for followup and a repeat biopsy was considered, but she never went through it. Again, this background, she comes to the hospital with joint pains and during this admission, she was found to have acute kidney injury with a creatinine of more than 2. Blood pressure was suboptimally controlled and hence this consultation. ONGOING MEDICAL PROBLEMS: Include history of SLE, anxiety, depression, fibromyalgia, history of membranous nephropathy by biopsy. SOCIAL HISTORY: Lives with family. No history of any alcohol intake. She smokes about half a pack a day. She also uses marijuana as needed. ALLERGIES: NO KNOWN DRUG ALLERGIES HAVE BEEN DOCUMENTED. HOME MEDICATIONS: Include Tylenol, azathioprine 50 mg daily, Celexa, hydromorphone, hydroxychloroquine, melatonin, prednisone 20 mg, senna. All the current medications were reviewed. REVIEW OF SYSTEMS: Positive for joint pains. She had some weight loss. She had a rash. No gross hematuria. No fever. No headache, nausea, vomiting. No diarrhea or constipation. All other systems were reviewed. PHYSICAL EXAMINATION: GENERAL: Trey is a 26-year-old woman. She is comfortable, not in distress. NECK: Supple. No JVD. Mucosa is moist. She has a facial rash. LUNGS: Air entry equal. No rales. HEART: S1, S2 heard. No gallop. No rub. ABDOMEN: Soft, nontender. EXTREMITIES: No edema. No rash. No clubbing. VITAL SIGNS: Blood pressure was 190/116. LABORATORY DATA: WBC 2.7, hemoglobin 9.4, platelets 177. Sodium 139, potassium 5.2, CO2 18, BUN 29, and creatinine 2.79. Random sugar 228, calcium 7.1. Troponin I was 121. Urinalysis showed specific gravity 1.015, 3+ protein by dipstick, no glycosuria, 3+ blood by dipstick with rbc's, no casts were reported. IMPRESSION: 26-year-old woman with lupus, comes in with joint pains, currently has acute kidney injury. Jilarry has acute kidney injury in the setting of lupus and she probably has active lupus nephritis. We will initiate a workup and proceed with a kidney biopsy. Hold anticoagulants. In the meantime, we will pulse her with methylprednisone 1 g daily x3 doses followed by mycophenolate. We will follow along with the team. Soham Vicente MD BPA/MODL / [id number]
--- NOTE | 2022-03-20 13:05 | PC.NURSE ---
pt seen by dr. gallego, pt aware of plan of care.
[2022-03-20 13:15] LABS: CT PCR NOT DETECTED (Not Detect.); NG PCR NOT DETECTED (Not Detect.)
--- NOTE | 2022-03-20 13:19 | PC.NURSE ---
rn to rn report given to [facility] aware of plan of care for transfer to overflow unit.
[2022-03-20] MEDS: methylPREDNISolone Sod Succ 1,000 MG in 0.9 % Sodium Chloride 50 ML 66 MG IV (14:01)
--- NOTE | 2022-03-20 15:01 | HO.PM.IMPN ---
Subjective Subjective Date of Service: 03/20/22 Interval History: patient seen and evaluated this morning Report generalized joint pain mainly in her hands and legs Report having easy bruising Making urine Denies any fever but reporting chills Kidney function worsened overnight Review of Systems No fever, chills but generalized weakness No chest pain, palpitation No shortness of breath or coughing No abdominal pain, nausea or vomiting No urinary symptoms easy bruising Physical Exam Vital Signs: Vital Signs: Last Vital Signs Temp 98.3 F 03/20/22 13:42 Pulse 85 03/20/22 13:42 Resp 20 03/20/22 13:42 BP 184/101 H 03/20/22 13:42 Pulse Ox 100 03/20/22 13:42 O2 Del Method 03/20/22 13:42 BMI result Body Mass Index 21.9 Const: Other: Constitutional : Alert, oriented, not in distress Neck : Normal inspection, Supple Cardiovascular : RRR, no JVP, no lower extremity edema Respiratory : fair bilateral air entry, no crackles, wheezes or rhonchi Gastrointestinal: soft, lax, Normal bowel sounds, Non tender Skin : Warm, Dry, multiple bruises on her sent scan musculoskeletal: swollen hands, wrists, fingers and ankles mildly, range of motion mildly decreased enhance Neurological : Alert & oriented x3, No focal deficit , CN 2-12 within normal Objective Data Active Medications Acetaminophen (Acetaminophen 325 Mg Tablet) 650 mg PO Q6H PRN PRN Reason: Pain, Mild (Pain Scale 1-3) Last Admin: 03/20/22 00:37 Dose: 650 mg Documented By: ALISIA Amlodipine Besylate (Amlodipine Besylate 5 Mg Tablet) 5 mg PO DAILY [facility]; Protocol Last Admin: 03/20/22 07:31 Dose: 5 mg Documented By: CHANDAN Azathioprine (Azathioprine 50 Mg Tablet) 50 mg PO DAILY [facility] Last Admin: 03/20/22 07:46 Dose: 50 mg Documented By: CHANDAN Escitalopram Oxalate (Escitalopram Oxalate 10 Mg Tablet) 10 mg PO DAILY [facility] Last Admin: 03/20/22 07:31 Dose: 10 mg Documented By: CHANDAN Hydromorphone HCl (Hydromorphone Hcl 0.5 Mg/0.5 Ml Syringe) 1 mg IVPUSH Q4H PRN; Protocol PRN Reason: Pain, Severe (Pain Scale 7-10) Last Admin: 03/20/22 14:02 Dose: 1 mg Documented By: RADHA Hydroxychloroquine Sulfate (Hydroxychloroquine Sulfate 200 Mg Tablet) 300 mg PO DAILY [facility] Last Admin: 03/20/22 07:30 Dose: 300 mg Documented By: CHANDAN Sodium Chloride (Ns) 1,000 mls @ 100 mls/hr IVCONT .Q10H [facility] Last Admin: 03/20/22 12:15 Dose: 100 mls/hr Documented By: CHANDAN Methylprednisolone Sodium Succinate 1,000 mg/ Sodium Chloride 66 mls @ 66 mls/hr IV Q24H [facility] Stop: 03/22/22 13:59 Last Admin: 03/20/22 14:01 Dose: 66 mls/hr Documented By: RADHA Labetalol HCl (Labetalol Hcl 100 Mg Tablet) 100 mg PO BID [facility]; Protocol Last Admin: 03/20/22 12:12 Dose: 100 mg Documented By: CHANDAN Melatonin (Melatonin 3 Mg Tablet) 6 mg PO BEDTIME PRN PRN Reason: Insomnia Last Admin: 03/20/22 00:37 Dose: 6 mg Documented By: ALISIA Mycophenolate Mofetil (Mycophenolate Mofetil 250 Mg Capsule) 500 mg PO BID [facility] Omeprazole (Omeprazole 40 Mg Capsule.Dr) 40 mg PO BID@0630,1630 [facility] Last Admin: 03/20/22 12:12 Dose: 40 mg Documented By: CHANDAN Senna (Sennosides 8.6 Mg Tablet) 17.2 mg PO BEDTIME PRN PRN Reason: Constipation Sodium Chloride (0.9 % Sodium Chloride Flush 3 Ml Syringe) 3 ml IVFLUSH QSHIFT [facility] Last Admin: 03/20/22 14:58 Dose: Not Given Documented By: RADHA Non-Admin Reason: IV Running Sodium Zirconium Cyclosilicate (Sodium Zirconium Cyclosilicate 5 Gm Powd.Pack) 5 gm PO DAILY [facility] Last Admin: 03/20/22 12:12 Dose: 5 gm Documented By: CHANDAN Labs CBC & Chem 7: 03/20/22 04:58 03/20/22 04:58 Labs: Laboratory Results - last 24 hr 03/19/22 03/19/22 03/19/22 14:07 14:50 14:50 MCV MCH MCHC RDW Plt Count MPV Immature Gran % (Auto) Neut % (Auto) Lymph % (Auto) [place] % (Auto) Eos % (Auto) Baso % (Auto) Lymph # (Auto) [place] # (Auto) Eos # (Auto) Baso # (Auto) Abs Immat Gran (auto) Absolute Neuts (auto) Absolute Nucleated RBC Nucleated RBC % (auto) Smear Tech's Comments Anion Gap Estim Creat Clear Calc Estimated GFR Random Glucose Calcium Magnesium Iron 30 TIBC 189 L % Saturation 16 Unsat Iron Binding 159 Lactate Dehydrogenase Total Creatine Kinase Troponin I High Sens 197.5 H* D C-Reactive Protein 0.28 TSH Urine Color Urine Appearance Urine pH Ur Specific [place] Urine Protein Urine Glucose (UA) Urine Ketones Urine Blood Urine Nitrite Ur Leukocyte Esterase Urine RBC Urine WBC Ur Squamous Epith Cells Urine Bacteria Urine Creatinine Urine Microalbumin Microalb/Creat Ratio Urine Test Chlam trachomat DNA PCR Influenza Type A (PCR) NEGATIVE Influenza Type B (PCR) NEGATIVE N.gonorrhoeae DNA (PCR) RSV RNA Qual (PCR) NEGATIVE SARS-CoV-2 RNA (RT-PCR) NEGATIVE Blood Type Antibody Screen Crossmatch 03/19/22 03/19/22 03/19/22 16:24 16:40 16:40 MCV MCH MCHC RDW Plt Count MPV Immature Gran % (Auto) Neut % (Auto) Lymph % (Auto) [place] % (Auto) Eos % (Auto) Baso % (Auto) Lymph # (Auto) [place] # (Auto) Eos # (Auto) Baso # (Auto) Abs Immat Gran (auto) Absolute Neuts (auto) Absolute Nucleated RBC Nucleated RBC % (auto) Smear Tech's Comments Anion Gap Estim Creat Clear Calc Estimated GFR Random Glucose Calcium Magnesium Iron TIBC % Saturation Unsat Iron Binding Lactate Dehydrogenase Total Creatine Kinase Troponin I High Sens C-Reactive Protein TSH Urine Color YELLOW Urine Appearance HAZY Urine pH 6.5 Ur Specific [place] 1.015 Urine Protein 3+ H Urine Glucose (UA) NEG Urine Ketones NEG Urine Blood 3+ H Urine Nitrite NEG Ur Leukocyte Esterase NEG Urine RBC 15-29 H Urine WBC 5-9 H Ur Squamous Epith Cells 3+ Urine Bacteria TRACE Urine Creatinine Urine Microalbumin Microalb/Creat Ratio Urine Test NEGATIVE Chlam trachomat DNA PCR Influenza Type A (PCR) Influenza Type B (PCR) N.gonorrhoeae DNA (PCR) RSV RNA Qual (PCR) SARS-CoV-2 RNA (RT-PCR) Blood Type A Positive Antibody Screen NEGATIVE Crossmatch See Detail 03/19/22 03/19/22 03/19/22 16:40 17:38 23:28 MCV MCH MCHC RDW Plt Count MPV Immature Gran % (Auto) Neut % (Auto) Lymph % (Auto) [place] % (Auto) Eos % (Auto) Baso % (Auto) Lymph # (Auto) [place] # (Auto) Eos # (Auto) Baso # (Auto) Abs Immat Gran (auto) Absolute Neuts (auto) Absolute Nucleated RBC Nucleated RBC % (auto) Smear Tech's Comments Anion Gap Estim Creat Clear Calc Estimated GFR Random Glucose Calcium Magnesium Iron TIBC % Saturation Unsat Iron Binding Lactate Dehydrogenase Total Creatine Kinase Troponin I High Sens 172.5 H* 121.5 H* C-Reactive Protein TSH Urine Color Urine Appearance Urine pH Ur Specific [place] Urine Protein Urine Glucose (UA) Urine Ketones Urine Blood Urine Nitrite Ur Leukocyte Esterase Urine RBC Urine WBC Ur Squamous Epith Cells Urine Bacteria Urine Creatinine 95.96 Urine Microalbumin 9902.0 Microalb/Creat Ratio 19234.8 Urine Test Chlam trachomat DNA PCR Influenza Type A (PCR) Influenza Type B (PCR) N.gonorrhoeae DNA (PCR) RSV RNA Qual (PCR) SARS-CoV-2 RNA (RT-PCR) Blood Type Antibody Screen Crossmatch 03/19/22 03/20/22 03/20/22 23:28 04:58 04:58 MCV 90.2 90.9 MCH 29.2 28.5 MCHC 32.4 31.3 RDW 16.0 15.8 Plt Count 162 177 MPV 9.1 L 9.9 Immature Gran % (Auto) 0.5 H 0.4 Neut % (Auto) 90.3 H 76.0 H Lymph % (Auto) 7.6 L 18.4 L [place] % (Auto) 1.6 L 5.2 Eos % (Auto) 0.0 0.0 Baso % (Auto) 0.0 0.0 Lymph # (Auto) 0.3 L 0.5 L [place] # (Auto) 0.1 0.1 Eos # (Auto) 0.0 0.0 Baso # (Auto) 0.0 0.0 Abs Immat Gran (auto) 0.02 0.01 Absolute Neuts (auto) 3.4 2.0 Absolute Nucleated RBC 0.000 0.000 Nucleated RBC % (auto) 0.0 0.0 Smear Tech's Comments VERIFIED Anion Gap 11 L Estim Creat Clear Calc 29.2 Estimated GFR 20 Random Glucose 228 H Calcium 7.1 L D Magnesium Iron TIBC % Saturation Unsat Iron Binding Lactate Dehydrogenase Total Creatine Kinase 41 Troponin I High Sens C-Reactive Protein TSH Urine Color Urine Appearance Urine pH Ur Specific [place] Urine Protein Urine Glucose (UA) Urine Ketones Urine Blood Urine Nitrite Ur Leukocyte Esterase Urine RBC Urine WBC Ur Squamous Epith Cells Urine Bacteria Urine Creatinine Urine Microalbumin Microalb/Creat Ratio Urine Test Chlam trachomat DNA PCR Influenza Type A (PCR) Influenza Type B (PCR) N.gonorrhoeae DNA (PCR) RSV RNA Qual (PCR) SARS-CoV-2 RNA (RT-PCR) Blood Type Antibody Screen Crossmatch 03/20/22 03/20/22 03/20/22 04:58 04:58 09:31 MCV MCH MCHC RDW Plt Count MPV Immature Gran % (Auto) Neut % (Auto) Lymph % (Auto) [place] % (Auto) Eos % (Auto) Baso % (Auto) Lymph # (Auto) [place] # (Auto) Eos # (Auto) Baso # (Auto) Abs Immat Gran (auto) Absolute Neuts (auto) Absolute Nucleated RBC Nucleated RBC % (auto) Smear Tech's Comments Anion Gap Estim Creat Clear Calc Estimated GFR Random Glucose Calcium Magnesium 2.3 Iron TIBC % Saturation Unsat Iron Binding Lactate Dehydrogenase Total Creatine Kinase Troponin I High Sens C-Reactive Protein TSH 0.49 Urine Color Urine Appearance Urine pH Ur Specific [place] Urine Protein Urine Glucose (UA) Urine Ketones Urine Blood Urine Nitrite Ur Leukocyte Esterase Urine RBC Urine WBC Ur Squamous Epith Cells Urine Bacteria Urine Creatinine Urine Microalbumin Microalb/Creat Ratio Urine Test Chlam trachomat DNA PCR NOT DETECTED Influenza Type A (PCR) Influenza Type B (PCR) N.gonorrhoeae DNA (PCR) NOT DETECTED RSV RNA Qual (PCR) SARS-CoV-2 RNA (RT-PCR) Blood Type Antibody Screen Crossmatch 03/20/22 12:10 MCV MCH MCHC RDW Plt Count MPV Immature Gran % (Auto) Neut % (Auto) Lymph % (Auto) [place] % (Auto) Eos % (Auto) Baso % (Auto) Lymph # (Auto) [place] # (Auto) Eos # (Auto) Baso # (Auto) Abs Immat Gran (auto) Absolute Neuts (auto) Absolute Nucleated RBC Nucleated RBC % (auto) Smear Tech's Comments Anion Gap Estim Creat Clear Calc Estimated GFR Random Glucose Calcium Magnesium Iron TIBC % Saturation Unsat Iron Binding Lactate Dehydrogenase 409 H Total Creatine Kinase Troponin I High Sens C-Reactive Protein TSH Urine Color Urine Appearance Urine pH Ur Specific [place] Urine Protein Urine Glucose (UA) Urine Ketones Urine Blood Urine Nitrite Ur Leukocyte Esterase Urine RBC Urine WBC Ur Squamous Epith Cells Urine Bacteria Urine Creatinine Urine Microalbumin Microalb/Creat Ratio Urine Test Chlam trachomat DNA PCR Influenza Type A (PCR) Influenza Type B (PCR) N.gonorrhoeae DNA (PCR) RSV RNA Qual (PCR) SARS-CoV-2 RNA (RT-PCR) Blood Type Antibody Screen Crossmatch Microbiology Microbiology Results: Microbiology 03/20/22 09:30 Trichomonas Preparation - Final Vaginal 03/19/22 16:40 Urine Culture - Preliminary Urine clean catch - Urine akers top No growth to date. Assessment and Plan (1) Abnormal uterine bleeding: Status: Acute (2) Hypertensive urgency: Status: Acute (3) KALEIGH (acute kidney injury): Status: Acute (4) Acute on chronic anemia: Status: Acute Plan 26-year-old female with a past medical history of hypertension, lupus, recent history of COVID-19 infection, renal insufficiency; presented to the hospital today with a chief complaint of diffuse body pains/chest pain. Noted to have following conditions Chest pain resolved. EKG nonischemic, no evidence of pericarditis Troponin-197->172->121. Telemetry Cardiology consult pending echocardiogram Diffuse joint pains: Likely in setting of lupus flare up elevated LDH discussed with Rheumatology, to do a kidney biopsy and treat with high-dose steroids Continue home azathioprine, hydroxychloroquine Dilaudid p.r.n. KALEIGH Patient does report poor oral intake for the past couple days Baseline creatinine around 0.8. Pending ultrasound of kidneys Creatinine presentation is 1.5Worsened to 2.6 this morning Nephrology input appreciated, to do kidney biopsy, complement and immunofixation treat with high-dose steroids for 3 days and mycophenolate monitor intake and output Repeat BMP acute on chronic anemia in the setting of dysfunctional uterine bleeding. Patient's baseline hemoglobin is around 9.5. on presentation was 7.8. Status post 1 unit of PRBC in the ER. Hb improved to 9.8 Evaluated by vp treasurer, to do pelvic ultrasound TSH Hypertensive urgency: Significantly elevated blood pressure readings start amlodipine, labetalol and hydralazine with blood pressure significantly remain elevated at 1 80s over 100 Labetalol p.r.n. titrate blood pressure medications as needed Tobacco dependence Counseled on smoking cessation. Patient refused nicotine patch. DVT prophylaxis SCDs for plan of kidney biopsy tomorrow morning The patient will need overnight hospital stay to continue evaluation and treatment of acute kidney injury, lupus flare up pending further evaluation to prevent possible decompensation in the med dialysis Quality Stroke Does the patient have a stroke diagnosis?: No VTE Prior VTE?: No VTE Risk Level:: Medical - moderate - high VTE Device Contraindication: Treatment Not Indicated VTE Drug Contraindication: N/A - Med Ordered
[2022-03-20] MEDS: hydrALAZINE HCl 25 MG TABLET PO (15:10)
[2022-03-20] MEDS: oxyCODONE HCl Immed Release 5 MG TABLET PO ×2 (16:14→21:39)
--- NOTE | 2022-03-20 16:15 | MHC.CM.PN ---
Met with patient regarding dc planning. Patient reports she lives with her and two children age 8 and 11. She is independent with ambulation, and has 10.[employer] hours per week through [employer] for assistance with bathing, hair care, cleaning, grocery shopping, and rides to medical appts and pharmacy. and mother are also supportive. PCP is Dr. Vic Pompa of [address] [place] [address]. HCP on file. Anticipate home with current services. Mother or sister to drive home.
[2022-03-20 17:15] LABS: Anion Gap 14 (12-20); Blood Urea Nitrogen 32 mg/dL (9-16); Calcium 7.4 mg/dL (8.4-10.2); Carbon Dioxide 14 mmol/L (22-29); Chloride 114 mmol/L (96-108); Estimated Glomerular Filt Rate 26; Glucose Random 164 mg/dL (60-115); Potassium 5.2 mmol/L (3.3-5.1); Sodium 137 mmol/L (135-145)
--- NOTE | 2022-03-20 18:24 | PC.NURSE ---
Pt is a/o. BP continues to be on the higher side 160/94 but better than when pt was in the ED. other vss. Pt is ambulatory to the bathroom independently. C/o diffuse body aches despite pain meds. Pt ate 100% of lunch and dinner. Callbell and belongings within reach. Pt to be NPO at midnight for kidney biopsy tomorrow per RN from IR.
--- NOTE | 2022-03-20 19:29 | PC.NURSE ---
Addendum entered by Carmen Mckeon 03/20/22 20:18: report given to CHAITANYA Meyer Original Note: report received fro CHAITANYA Reaves. pt alert and oriented. resting in bed. no signs of acute distress notice. breathing equally unlabored
[2022-03-20] MEDS: hydrALAZINE HCl 50 MG TABLET PO (21:39)
[2022-03-20] MEDS: mycophenolate mofetiL 250 MG CAPSULE 500 MG PO (21:41)
[2022-03-21] VITALS (11 sets, daily range): BP systolic 137–188; BP diastolic 81–96; PULSE 87–96; RESP 16–18; TEMP 36.1–37.2; O2SAT 97–100
[2022-03-21] MEDS: oxyCODONE HCl Immed Release 5 MG TABLET PO ×3 (00:34→13:22)
[2022-03-21 07:10] LABS: Hematocrit 27.8 % (37.0-47.0); Hemoglobin 8.9 g/dl (12.0-16.0); Mean Corpuscular Hemoglobin 28.8 pg (27.0-33.0); Mean Platelet Volume 10.6 fL (9.4-12.3); Platelet Count 191 X10*3/uL (160-400); Red Blood Count 3.09 X10*6/uL (4.20-5.50); Red Cell Distribution Width 16.4 % (11.0-16.0); White Blood Count 9.5 X10*3/uL (4.8-10.8)
[2022-03-21] MEDS: hydrALAZINE HCl 50 MG TABLET PO ×3 (07:29→22:15)
[2022-03-21] MEDS: mycophenolate mofetiL 250 MG CAPSULE 500 MG PO ×2 (07:30→22:15)
[2022-03-21] MEDS: Labetalol HCL 100 MG TABLET PO ×2 (07:30→22:15)
[2022-03-21] MEDS: amLODIPine Besylate 10 MG TABLET PO (07:30)
[2022-03-21] MEDS: Hydroxychloroquine Sulfate 200 MG TABLET 300 MG PO (07:30)
[2022-03-21] MEDS: 0.9 % Sodium Chloride Flush 3 ML SYRINGE IVFLUSH ×3 (07:31→22:17)
[2022-03-21] MEDS: Sodium Zirconium Cyclosilicate 5 GM POWD.PACK PO (07:31)
[2022-03-21] MEDS: Escitalopram Oxalate 10 MG TABLET PO (07:31)
[2022-03-21 07:39] LABS: Anion Gap 12 (12-20); Blood Urea Nitrogen 40 mg/dL (9-16); Calcium 7.6 mg/dL (8.4-10.2); Carbon Dioxide 14 mmol/L (22-29); Chloride 116 mmol/L (96-108); Creatinine Clr Calc Pharmacy 37.5; Estimated Glomerular Filt Rate 27; Glucose Random 147 mg/dL (60-115); Sodium 137 mmol/L (135-145)
[2022-03-21] MEDS: azaTHIOprine 50 MG TABLET PO (07:44)
[2022-03-21] MEDS: HYDROmorphone HCl 0.5 MG/0.5 ML SYRINGE IVPUSH ×3 (10:39→22:16)
[2022-03-21 11:06] LABS: BV Int Neg Control Negative (Negative); BV Int Pos Control Positive (Positive)
--- NOTE | 2022-03-21 11:16 | P.PNNP_ITS ---
Subjective Subjective Date of Service: 04/22/22 Interval history: Events noted Feels better s/p kidney biopsy by IR today Physical Exam 2 Vital Signs: Vital Signs: Last Vital Signs Temp 99.0 F 03/21/22 10:35 Pulse 94 03/21/22 10:35 Resp 16 03/21/22 10:35 BP 161/81 H 03/21/22 10:35 Pulse Ox 98 03/21/22 10:35 O2 Del Method 03/21/22 10:35 BMI result Body Mass Index 23.1 Const: Other: Constitutional : Alert, oriented, not in distress Neck : Normal inspection, Supple Cardiovascular : RRR, no JVP, no lower extremity edema Respiratory : fair bilateral air entry, no crackles, wheezes or rhonchi Gastrointestinal: soft, lax, Normal bowel sounds, Non tender Skin : Warm, Dry, multiple bruises on her sent scan musculoskeletal: swollen hands, wrists, fingers and ankles mildly, range of motion mildly decreased enhance Neurological : Alert & oriented x3, No focal deficit , CN 2-12 within normal Objective Data Labs CBC & Chem 7: 03/23/22 09:07 03/25/22 06:11 Labs: Laboratory Results - last 24 hr 03/19/22 03/20/22 03/20/22 16:40 04:58 04:58 WBC RBC Hgb Hct MCV MCH MCHC RDW Plt Count MPV Absolute Nucleated RBC Nucleated RBC % (auto) Sodium Potassium Chloride Carbon Dioxide Anion Gap BUN Creatinine Estim Creat Clear Calc Estimated GFR Random Glucose Calcium Lactate Dehydrogenase Total Creatine Kinase 41 TSH 0.49 Urine Microalbumin 9902.0 Microalb/Creat Ratio 20795.8 Shannan species DNA Chlam trachomat DNA PCR Gardnerella DNA Probe N.gonorrhoeae DNA (PCR) Trichomonas DNA Probe 03/20/22 03/20/22 03/20/22 09:30 09:31 12:10 WBC RBC Hgb Hct MCV MCH MCHC RDW Plt Count MPV Absolute Nucleated RBC Nucleated RBC % (auto) Sodium Potassium Chloride Carbon Dioxide Anion Gap BUN Creatinine Estim Creat Clear Calc Estimated GFR Random Glucose Calcium Lactate Dehydrogenase 409 H Total Creatine Kinase TSH Urine Microalbumin Microalb/Creat Ratio Shannan species DNA Negative Chlam trachomat DNA PCR NOT DETECTED [place] DNA Probe Positive A N.gonorrhoeae DNA (PCR) NOT DETECTED Trichomonas DNA Probe Negative 03/20/22 03/21/22 03/21/22 15:55 06:51 06:51 WBC 9.5 RBC 3.09 L Hgb 8.9 L Hct 27.8 L MCV 90.0 MCH 28.8 MCHC 32.0 RDW 16.4 H Plt Count 191 MPV 10.6 Absolute Nucleated RBC 0.000 Nucleated RBC % (auto) 0.0 Sodium 137 137 Potassium 5.2 H 5.0 Chloride 114 H 116 H Carbon Dioxide 14 L 14 L Anion Gap 14 12 BUN 32 H 40 H Creatinine 2.26 H 2.17 H Estim Creat Clear Calc 36.0 37.5 Estimated GFR 26 27 Random Glucose 164 H 147 H Calcium 7.4 L 7.6 L Lactate Dehydrogenase Total Creatine Kinase TSH Urine Microalbumin Microalb/Creat Ratio Shannan species DNA Chlam trachomat DNA PCR [place] DNA Probe N.gonorrhoeae DNA (PCR) Trichomonas DNA Probe Microbiology Microbiology Results: Microbiology 03/20/22 09:30 Vaginal Trichomonas Preparation - Final 03/19/22 16:40 Urine clean catch - Urine akers top Urine Culture - Preliminary No growth to date. Procedures Date of Service Date of Service: 03/21/22 Assessment & Plan Assessment and plan (1) Elevated troponin: Status: Resolved (2) Hypertensive urgency: Plan KALEIGH SLE Elevated Troponin Severe HTN Plan s/p kidney biopsy Day 2 of Methylprednisone Await biopsy results Optimize BP - Can increase Labetolol ( HR is 94) Await serologies Check CBD q 8 hrly x 3 Watch HCT and Platelets Time Spent With Patient Time: Total time spent is greater than 50% in coordination of care (as documented) at patient's floor/unit and/or counseling patient: Progress Note: Quality Stroke Does the patient have a stroke diagnosis?: No
[2022-03-21] MEDS: methylPREDNISolone Sod Succ 1,000 MG in 0.9 % Sodium Chloride 50 ML 66 MG IV (13:35)
--- NOTE | 2022-03-21 15:00 | P.PNIM_ITS ---
Subjective Subjective Date of Service: 03/21/22 Interval History: Seen and examined this morning Follow-up for KALEIGH Plan for kidney biopsy this morning Review of Systems Review of Systems: Yes all other systems are reviewed and are negative Constitutional Constitutional: Denies chills and Denies fever(s) Cardiovascular Cardiovascular: Denies chest pain Respiratory Respiratory: Denies cough Physical Exam Vital Signs: Vital Signs: Last Vital Signs Temp 98.6 F 03/21/22 12:00 Pulse 96 03/21/22 12:00 Resp 16 03/21/22 12:00 BP 158/85 H 03/21/22 12:00 Pulse Ox 100 03/21/22 12:00 O2 Del Method 03/21/22 12:00 BMI result Body Mass Index 23.1 Const: General: cooperative, comfortable and no acute distress Nutritional Appearance: average body habitus Orientation/consciousness: patient oriented x3 Resp: Effort & Inspection: normal respiratory effort and able to speak in complete sentences Cardio: Rate: regular rate Heart sounds: S1 normal heart sound present and S2 normal heart sound present GI: Palpation (GI): Soft to palpation and nontender Neuro: General: patient oriented x3 Extrem: General: Yes no pedal edema Objective Data Active Medications Acetaminophen (Acetaminophen 325 Mg Tablet) 650 mg PO Q6H PRN PRN Reason: Pain, Mild (Pain Scale 1-3) Last Admin: 03/20/22 00:37 Dose: 650 mg Documented By: ALISIA Amlodipine Besylate (Amlodipine Besylate 10 Mg Tablet) 10 mg PO DAILY [facility]; Protocol Last Admin: 03/21/22 07:30 Dose: 10 mg Documented By: SARAVANAN Azathioprine (Azathioprine 50 Mg Tablet) 50 mg PO DAILY [facility] Last Admin: 03/21/22 07:44 Dose: 50 mg Documented By: SARAVANAN Escitalopram Oxalate (Escitalopram Oxalate 10 Mg Tablet) 10 mg PO DAILY [facility] Last Admin: 03/21/22 07:31 Dose: 10 mg Documented By: SARAVANAN Hydralazine HCl (Hydralazine Hcl 50 Mg Tablet) 50 mg PO TID [facility]; Protocol Last Admin: 03/21/22 14:56 Dose: 50 mg Documented By: SARAVANAN Hydromorphone HCl (Hydromorphone Hcl 0.5 Mg/0.5 Ml Syringe) 0.5 mg IVPUSH Q4H PRN; Protocol PRN Reason: Pain, Severe (Pain Scale 7-10) Last Admin: 03/21/22 14:56 Dose: 0.5 mg Documented By: SARAVANAN Hydroxychloroquine Sulfate (Hydroxychloroquine Sulfate 200 Mg Tablet) 300 mg PO DAILY [facility] Last Admin: 03/21/22 07:30 Dose: 300 mg Documented By: SARAVANAN Sodium Chloride (Ns) 1,000 mls @ 100 mls/hr IVCONT .Q10H [facility] Last Infusion: 03/21/22 07:49 Dose: 0 mls/hr Documented By: SARAVANAN Methylprednisolone Sodium Succinate 1,000 mg/ Sodium Chloride 66 mls @ 66 mls/hr IV Q24H [facility] Stop: 03/22/22 13:59 Last Admin: 03/21/22 13:35 Dose: 66 mls/hr Documented By: SARAVANAN Labetalol HCl (Labetalol Hcl 100 Mg Tablet) 100 mg PO BID [facility]; Protocol Last Admin: 03/21/22 07:30 Dose: 100 mg Documented By: SARAVANAN Melatonin (Melatonin 3 Mg Tablet) 6 mg PO BEDTIME PRN PRN Reason: Insomnia Last Admin: 03/20/22 00:37 Dose: 6 mg Documented By: ALISIA Mycophenolate Mofetil (Mycophenolate Mofetil 250 Mg Capsule) 500 mg PO BID [facility] Last Admin: 03/21/22 07:30 Dose: 500 mg Documented By: SARAVANAN Omeprazole (Omeprazole 40 Mg Capsule.Dr) 40 mg PO BID@0630,1630 [facility] Last Admin: 03/21/22 06:02 Dose: Not Given Documented By: LALA Non-Admin Reason: NPO Oxycodone HCl (Oxycodone Hcl Immed Release 5 Mg Tablet) 5 mg PO Q4H PRN PRN Reason: Pain, Severe (Pain Scale 7-10) Last Admin: 03/21/22 13:22 Dose: 5 mg Documented By: SARAVANAN Senna (Sennosides 8.6 Mg Tablet) 17.2 mg PO BEDTIME PRN PRN Reason: Constipation Sodium Chloride (0.9 % Sodium Chloride Flush 3 Ml Syringe) 3 ml IVFLUSH QSHIFT [facility] Last Admin: 03/21/22 07:31 Dose: 3 ml Documented By: SARAVANAN Sodium Zirconium Cyclosilicate (Sodium Zirconium Cyclosilicate 5 Gm Powd.Pack) 5 gm PO DAILY [facility] Last Admin: 03/21/22 07:31 Dose: 5 gm Documented By: SARAVANAN Labs CBC & Chem 7: 03/21/22 06:51 03/21/22 06:51 Labs: Laboratory Results - last 24 hr 03/20/22 03/20/22 03/21/22 09:30 15:55 06:51 MCV 90.0 MCH 28.8 MCHC 32.0 RDW 16.4 H Plt Count 191 MPV 10.6 Absolute Nucleated RBC 0.000 Nucleated RBC % (auto) 0.0 Anion Gap 14 Estim Creat Clear Calc 36.0 Estimated GFR 26 Random Glucose 164 H Calcium 7.4 L Shannan species DNA Negative Gardnerella DNA Probe Positive A Trichomonas DNA Probe Negative 03/21/22 06:51 MCV MCH MCHC RDW Plt Count MPV Absolute Nucleated RBC Nucleated RBC % (auto) Anion Gap 12 Estim Creat Clear Calc 37.5 Estimated GFR 27 Random Glucose 147 H Calcium 7.6 L Shannan species DNA Gardnerella DNA Probe Trichomonas DNA Probe Microbiology Microbiology Results: Microbiology 03/19/22 16:40 Urine Culture - Final Urine clean catch - Urine akers top No growth. Assessment and Plan (1) Abnormal uterine bleeding: Status: Acute (2) Hypertensive urgency: Status: Acute (3) KALEIGH (acute kidney injury): Status: Acute Plan 26-year-old female with a past medical history of hypertension, lupus, recent history of COVID-19 infection, renal insufficiency; presented to the hospital today with a chief complaint of diffuse body pains/chest pain. Noted to have following conditions Chest pain resolved. EKG nonischemic, no evidence of pericarditis Troponin-197->172->121. Telemetry Seen by Cardiology Echocardiogram did show small to moderate pericardial effusion- cardiology recommends repeat echocardiogram next week if patient is still hospitalized otherwise contact Cardiology upon discharge to schedule outpatient repeat echocardiogram Diffuse joint pains: Likely in setting of lupus flare up elevated LDH discussed with Rheumatology, to do a kidney biopsy and treat with high-dose steroids Continue home azathioprine, hydroxychloroquine Dilaudid p.r.n. KALEIGH Baseline creatinine around 0.8. Creatinine 2.17 today kidney US -no acute changes Nephrology input appreciated, to do kidney biopsy, complement and immunofixation. Status post kidney biopsy this treat with high-dose steroids for 3 days and mycophenolate monitor intake and output Repeat BMP Metabolic acidosis Secondary to renal dysfunction Workup ongoing Nephrology following acute on chronic anemia in the setting of dysfunctional uterine bleeding. Currently menstruating, likely cause of drop in H/H Patient's baseline hemoglobin is around 9.5. on presentation was 7.8. Status post 1 unit of PRBC in the ER. Evaluated by rn obgyn, to do pelvic ultrasound- report pending TSH Hypertensive urgency: Significantly elevated blood pressure readings start amlodipine, labetalol and hydralazine Labetalol p.r.n. titrate blood pressure medications as needed Tobacco dependence Counseled on smoking cessation. Patient refused nicotine patch. DVT prophylaxis SCDs Attending-Dr. still The patient will need overnight hospital stay to continue evaluation and treatment of acute kidney injury, lupus flare up pending further evaluation to prevent possible decompensation Quality Stroke Does the patient have a stroke diagnosis?: No VTE Prior VTE?: No VTE Risk Level:: Medical - moderate - high VTE Device Contraindication: Treatment Not Indicated VTE Drug Contraindication: N/A - Med Ordered
[2022-03-21 15:25] LABS: Hematocrit 26.7 % (37.0-47.0); Hemoglobin 8.8 g/dl (12.0-16.0); Mean Corpuscular Hemoglobin 29.4 pg (27.0-33.0); Mean Corpuscular Volume 89.3 fL (80.0-98.0); Mean Platelet Volume 10.6 fL (9.4-12.3); Platelet Count 200 X10*3/uL (160-400); Red Blood Count 2.99 X10*6/uL (4.20-5.50); Red Cell Distribution Width 16.4 % (11.0-16.0); White Blood Count 11.2 X10*3/uL (4.8-10.8)
[2022-03-21 16:02] LABS: Complement C3 51 mg/dL (83-193)
[2022-03-21] MEDS: Omeprazole 40 MG CAPSULE.DR PO (16:02)
[2022-03-21] MEDS: 0.9 % Sodium Chloride 1,000 ML 100 ML IVCONT (16:03)
[2022-03-21] MEDS: Melatonin 3 MG TABLET 6 MG PO (22:14)
[2022-03-21 22:22] LABS: Hematocrit 27.4 % (37.0-47.0); Mean Corpuscular HGB Conc 32.8 g/dl (31.0-35.0); Mean Corpuscular Hemoglobin 29.4 pg (27.0-33.0); Mean Corpuscular Volume 89.5 fL (80.0-98.0); Mean Platelet Volume 9.9 fL (9.4-12.3); NRBC Pct Auto 0.2 /100WBC (0.0-0.2); Platelet Count 199 X10*3/uL (160-400); Red Blood Count 3.06 X10*6/uL (4.20-5.50); Red Cell Distribution Width 16.7 % (11.0-16.0); White Blood Count 11.8 X10*3/uL (4.8-10.8)
[2022-03-22] VITALS (9 sets, daily range): BP systolic 133–172; BP diastolic 69–88; PULSE 82–92; RESP 14–18; TEMP 36.3–36.8; O2SAT 98–100
[2022-03-22] MEDS: oxyCODONE HCl Immed Release 5 MG TABLET PO ×3 (00:25→20:58)
[2022-03-22] MEDS: HYDROmorphone HCl 0.5 MG/0.5 ML SYRINGE IVPUSH ×5 (03:51→23:30)
[2022-03-22] MEDS: 0.9 % Sodium Chloride 1,000 ML 100 ML IVCONT (03:52)
[2022-03-22 08:21] LABS: Hematocrit 26.2 % (37.0-47.0); Hemoglobin 8.5 g/dl (12.0-16.0); Mean Corpuscular HGB Conc 32.4 g/dl (31.0-35.0); Mean Corpuscular Hemoglobin 29.3 pg (27.0-33.0); Mean Corpuscular Volume 90.3 fL (80.0-98.0); Mean Platelet Volume 10.4 fL (9.4-12.3); Platelet Count 180 X10*3/uL (160-400); Red Cell Distribution Width 16.7 % (11.0-16.0); White Blood Count 10.8 X10*3/uL (4.8-10.8)
[2022-03-22 08:44] LABS: Anion Gap 13 (12-20); Blood Urea Nitrogen 56 mg/dL (9-16); Carbon Dioxide 16 mmol/L (22-29); Chloride 115 mmol/L (96-108); Creatinine Clr Calc Pharmacy 39.3; Estimated Glomerular Filt Rate 29; Glucose Random 129 mg/dL (60-115); Potassium 5.2 mmol/L (3.3-5.1); Sodium 139 mmol/L (135-145)
[2022-03-22] MEDS: mycophenolate mofetiL 250 MG CAPSULE 500 MG PO ×2 (08:53→20:59)
[2022-03-22] MEDS: amLODIPine Besylate 10 MG TABLET PO (08:53)
[2022-03-22] MEDS: azaTHIOprine 50 MG TABLET PO (08:54)
[2022-03-22] MEDS: Labetalol HCL 100 MG TABLET PO ×3 (08:54→20:58)
[2022-03-22] MEDS: Hydroxychloroquine Sulfate 200 MG TABLET 300 MG PO (08:54)
[2022-03-22] MEDS: Escitalopram Oxalate 10 MG TABLET PO (08:54)
[2022-03-22] MEDS: hydrALAZINE HCl 50 MG TABLET PO ×3 (08:54→20:58)
[2022-03-22] MEDS: Sodium Zirconium Cyclosilicate 5 GM POWD.PACK PO (08:54)
--- NOTE | 2022-03-22 09:28 | PM.PNNEP ---
Subjective Subjective Date of Service: 03/22/22 Interval history: Seen and examined this morning Follow-up for KALEIGH Plan for kidney biopsy this morning Physical Exam Vital Signs: Vital Signs: Last Vital Signs Temp 98.1 F 03/22/22 08:00 Pulse 82 03/22/22 08:00 Resp 18 03/22/22 08:54 BP 172/85 H 03/22/22 08:00 Pulse Ox 100 03/22/22 08:00 O2 Del Method 03/22/22 08:00 BMI result Body Mass Index 23.1 Const: Other: Constitutional : Alert, oriented, not in distress Neck : Normal inspection, Supple Cardiovascular : RRR, no JVP, no lower extremity edema Respiratory : fair bilateral air entry, no crackles, wheezes or rhonchi Gastrointestinal: soft, lax, Normal bowel sounds, Non tender Skin : Warm, Dry, multiple bruises on her sent scan musculoskeletal: swollen hands, wrists, fingers and ankles mildly, range of motion mildly decreased enhance Neurological : Alert & oriented x3, No focal deficit , CN 2-12 within normal General: cooperative, comfortable and no acute distress Nutritional Appearance: average body habitus Orientation/consciousness: patient oriented x3 Resp: Effort & Inspection: normal respiratory effort and able to speak in complete sentences Cardio: Rate: regular rate Heart sounds: S1 normal heart sound present and S2 normal heart sound present GI: Palpation (GI): Soft to palpation and nontender Neuro: General: patient oriented x3 Extrem: General: Yes no pedal edema Objective Data Labs CBC & Chem 7: 03/22/22 08:12 03/22/22 08:12 Labs: Laboratory Results - last 24 hr 03/20/22 03/20/22 03/21/22 09:30 12:10 15:11 WBC 11.2 H RBC 2.99 L Hgb 8.8 L Hct 26.7 L MCV 89.3 MCH 29.4 MCHC 33.0 RDW 16.4 H Plt Count 200 MPV 10.6 Absolute Nucleated RBC 0.000 Nucleated RBC % (auto) 0.0 Sodium Potassium Chloride Carbon Dioxide Anion Gap BUN Creatinine Estim Creat Clear Calc Estimated GFR Random Glucose Calcium Complement C3 51 L Complement C4 10 L Shannan species DNA Negative Gardnerella DNA Probe Positive A Trichomonas DNA Probe Negative 03/21/22 03/22/22 03/22/22 22:11 08:12 08:12 WBC 11.8 H 10.8 RBC 3.06 L 2.90 L Hgb 9.0 L 8.5 L Hct 27.4 L 26.2 L MCV 89.5 90.3 MCH 29.4 29.3 MCHC 32.8 32.4 RDW 16.7 H 16.7 H Plt Count 199 180 MPV 9.9 10.4 Absolute Nucleated RBC 0.020 H 0.000 Nucleated RBC % (auto) 0.2 0.0 Sodium 139 Potassium 5.2 H Chloride 115 H Carbon Dioxide 16 L Anion Gap 13 BUN 56 H Creatinine 2.07 H Estim Creat Clear Calc 39.3 Estimated GFR 29 Random Glucose 129 H Calcium 8.0 L Complement C3 Complement C4 Shannan species DNA Gardnerella DNA Probe Trichomonas DNA Probe Microbiology Microbiology Results: Microbiology 03/19/22 16:40 Urine clean catch - Urine akers top Urine Culture - Final No growth. 03/20/22 09:30 Vaginal Trichomonas Preparation - Final Procedures Date of Service Date of Service: 03/22/22 Assessment & Plan Assessment and plan (1) Abnormal uterine bleeding: Status: Acute (2) Hypertensive urgency: Status: Acute (3) KALEIGH (acute kidney injury): Status: Acute Plan 26-year-old female with a past medical history of hypertension, lupus, recent history of COVID-19 infection, renal insufficiency; presented to the hospital today with a chief complaint of diffuse body pains/chest pain. Noted to have following conditions Chest pain resolved. EKG nonischemic, no evidence of pericarditis Troponin-197->172->121. Telemetry Seen by Cardiology Echocardiogram did show small to moderate pericardial effusion- cardiology recommends repeat echocardiogram next week if patient is still hospitalized otherwise contact Cardiology upon discharge to schedule outpatient repeat echocardiogram Diffuse joint pains: Likely in setting of lupus flare up elevated LDH discussed with Rheumatology, to do a kidney biopsy and treat with high-dose steroids Continue home azathioprine, hydroxychloroquine Dilaudid p.r.n. KALEIGH Baseline creatinine around 0.8. Creatinine 2.17 today kidney US -no acute changes kidney biopsy, complement and immunofixation. Status post kidney biopsy this treat with high-dose steroids for 3 days and mycophenolate monitor intake and output Repeat BMP Metabolic acidosis Secondary to renal dysfunction KALEIGH SLE Elevated Troponin Severe HTN Plan s/p kidney biopsy Day 2 of Methylprednisone Await biopsy results Optimize BP - Can increase Labetolol ( HR is 94) Await serologies Check CBD q 8 hrly x 3 Watch HCT and Platelets Hypertensive urgency: Significantly elevated blood pressure readings start amlodipine, labetalol and hydralazine Labetalol p.r.n. titrate blood pressure medications as needed Time Spent With Patient Time: Total time spent is greater than 50% in coordination of care (as documented) at patient's floor/unit and/or counseling patient: Progress Note: Quality Stroke Does the patient have a stroke diagnosis?: No
--- NOTE | 2022-03-22 09:54 | P.CDIC_ITS ---
CDI Concurrent Query Documentation Clarification: PHYSICIAN'S DOCUMENTATION REQUEST Date of Query: 03/22/22 0954 Patient Name: Trey Canales Admit Date: 03/19/22 Dear Doctor, A review of the medical record indicates additional documentation may be needed. Please review below and update the documentation accordingly. Clinical Indicators: Risk Factors/Clinical Indicators/Treatments H/H: 7.8/25.0 on 03/19/22 transfusion one unit blood Per MD progress note 03/21/22: history?acute on chronic anemia in the setting of dysfunctional uterine bleeding.? Currently menstruating, likely cause of drop in H/H Based on the above, could you clarify in the Progress Notes which of the following is the most likely type of anemia you are evaluating, treating, and/or monitoring? * Acute blood loss anemia * Acute blood loss anemia with baseline chronic anemia (specify type) * Anemia of chronic disease- indicate if neoplastic disease, CKD, or other * Other ? please specify * Unable to determine Use of terms such as suspected, likely, concern for, or probable (associated with a specific diagnosis that is being evaluated, monitored, or treated as if it exists) are acceptable and can be coded in the inpatient setting, when documented at the time of discharge. Thank you, Neetu Ho RN Extension: [phone] Please use your independent medical judgment in providing your response. THIS QUERY IS PART OF THE PERMANENT MEDICAL RECORD Provider Response: Anemia (anemia of chronic disease)
--- NOTE | 2022-03-22 12:08 | MHC.CM.PN ---
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
--- NOTE | 2022-03-22 12:09 | P.PNIM_ITS ---
Subjective Subjective Date of Service: 03/22/22 Interval History: Seen and examined this morning Follow-up for KALEIGH Patient with menstrual bleeding No chest pain, nausea, vomiting, shortness of breath, reports some epigastric discomfort Review of Systems Review of Systems: Yes all other systems are reviewed and are negative Constitutional Constitutional: Denies chills and Denies fever(s) Cardiovascular Cardiovascular: Denies chest pain, Denies palpitations and Denies dyspnea Respiratory Respiratory: Denies cough and Denies dyspnea Gastrointestinal Gastrointestinal: Denies diarrhea, Denies nausea and Denies vomiting Endocrine Endocrine: Denies palpitations Physical Exam Vital Signs: Vital Signs: Last Vital Signs Temp 98.3 F 03/22/22 10:58 Pulse 86 03/22/22 10:58 Resp 18 03/22/22 10:58 BP 141/78 H 03/22/22 10:58 Pulse Ox 98 03/22/22 10:58 O2 Del Method 03/22/22 10:58 BMI result Body Mass Index 23.1 Const: General: cooperative, comfortable and no acute distress Nutritional Appearance: average body habitus Orientation/consciousness: patient oriented x3 Resp: Effort & Inspection: normal respiratory effort and able to speak in complete sentences Auscultation: clear to auscultation bilaterally Cardio: Rate: regular rate Heart sounds: S1 normal heart sound present and S2 normal heart sound present GI: Inspection: No distended Palpation (GI): Soft to palpation and nontender Neuro: General: patient oriented x3 Extrem: General: Yes no pedal edema Objective Data Active Medications Acetaminophen (Acetaminophen 325 Mg Tablet) 650 mg PO Q6H PRN PRN Reason: Pain, Mild (Pain Scale 1-3) Last Admin: 03/20/22 00:37 Dose: 650 mg Documented By: ALISIA Amlodipine Besylate (Amlodipine Besylate 10 Mg Tablet) 10 mg PO DAILY [facility]; Protocol Last Admin: 03/22/22 08:53 Dose: 10 mg Documented By: COTEMA Azathioprine (Azathioprine 50 Mg Tablet) 50 mg PO DAILY [facility] Last Admin: 03/22/22 08:54 Dose: 50 mg Documented By: COTEMA Escitalopram Oxalate (Escitalopram Oxalate 10 Mg Tablet) 10 mg PO DAILY [facility] Last Admin: 03/22/22 08:54 Dose: 10 mg Documented By: COTEMA Hydralazine HCl (Hydralazine Hcl 50 Mg Tablet) 50 mg PO TID [facility]; Protocol Last Admin: 03/22/22 08:54 Dose: 50 mg Documented By: COTEMA Hydromorphone HCl (Hydromorphone Hcl 0.5 Mg/0.5 Ml Syringe) 0.5 mg IVPUSH Q4H PRN; Protocol PRN Reason: Pain, Severe (Pain Scale 7-10) Last Admin: 03/22/22 08:54 Dose: 0.5 mg Documented By: KEYSHAEMA Hydroxychloroquine Sulfate (Hydroxychloroquine Sulfate 200 Mg Tablet) 300 mg PO DAILY [facility] Last Admin: 03/22/22 08:54 Dose: 300 mg Documented By: COTEMA Methylprednisolone Sodium Succinate 1,000 mg/ Sodium Chloride 66 mls @ 66 mls/hr IV Q24H [facility] Stop: 03/22/22 13:59 Last Infusion: 03/21/22 16:08 Dose: 0 mls/hr Documented By: SARAVANAN Labetalol HCl (Labetalol Hcl 100 Mg Tablet) 100 mg PO TID [facility]; Protocol Last Admin: 03/22/22 08:54 Dose: 100 mg Documented By: CRIS Melatonin (Melatonin 3 Mg Tablet) 6 mg PO BEDTIME PRN PRN Reason: Insomnia Last Admin: 03/21/22 22:14 Dose: 6 mg Documented By: LALA Mycophenolate Mofetil (Mycophenolate Mofetil 250 Mg Capsule) 500 mg PO BID [facility] Last Admin: 03/22/22 08:53 Dose: 500 mg Documented By: KEYSHAEMA Omeprazole (Omeprazole 40 Mg Capsule.) 40 mg PO BID@0630,1630 [facility] Last Admin: 03/22/22 06:37 Dose: Not Given Documented By: LALA Non-Admin Reason: Patient Asleep Oxycodone HCl (Oxycodone Hcl Immed Release 5 Mg Tablet) 5 mg PO Q4H PRN PRN Reason: Pain, Severe (Pain Scale 7-10) Last Admin: 03/22/22 00:25 Dose: 5 mg Documented By: LALA Senna (Sennosides 8.6 Mg Tablet) 17.2 mg PO BEDTIME PRN PRN Reason: Constipation Sodium Chloride (0.9 % Sodium Chloride Flush 3 Ml Syringe) 3 ml IVFLUSH QSHIFT [facility] Last Admin: 03/22/22 07:29 Dose: Not Given Documented By: CRIS Non-Admin Reason: IV Running Sodium Zirconium Cyclosilicate (Sodium Zirconium Cyclosilicate 5 Gm Powd.Pack) 5 gm PO DAILY [facility] Last Admin: 03/22/22 08:54 Dose: 5 gm Documented By: CRIS Labs CBC & Chem 7: 03/22/22 08:12 03/22/22 08:12 Labs: Laboratory Results - last 24 hr 03/20/22 03/21/22 03/21/22 12:10 15:11 22:11 MCV 89.3 89.5 MCH 29.4 29.4 MCHC 33.0 32.8 RDW 16.4 H 16.7 H Plt Count 200 199 MPV 10.6 9.9 Absolute Nucleated RBC 0.000 0.020 H Nucleated RBC % (auto) 0.0 0.2 Anion Gap Estim Creat Clear Calc Estimated GFR Random Glucose Calcium Complement C3 51 L Complement C4 10 L 03/22/22 03/22/22 08:12 08:12 MCV 90.3 MCH 29.3 MCHC 32.4 RDW 16.7 H Plt Count 180 MPV 10.4 Absolute Nucleated RBC 0.000 Nucleated RBC % (auto) 0.0 Anion Gap 13 Estim Creat Clear Calc 39.3 Estimated GFR 29 Random Glucose 129 H Calcium 8.0 L Complement C3 Complement C4 Microbiology Microbiology Results: Microbiology 03/19/22 16:40 Urine Culture - Final Urine clean catch - Urine akers top No growth. Assessment and Plan (1) Abnormal uterine bleeding: Status: Acute (2) Hypertensive urgency: Status: Acute (3) KALEIGH (acute kidney injury): Status: Acute (4) Pericardial effusion: Status: Acute Plan 26-year-old female with a past medical history of hypertension, lupus, recent history of COVID-19 infection, renal insufficiency; presented to the hospital today with a chief complaint of diffuse body pains/chest pain. Noted to have following conditions Chest pain resolved. EKG nonischemic, no evidence of pericarditis Troponin-197->172->121. Seen by Cardiology - no evidence of ACS. elevation in cardiac enzymes likely secondary to high blood pressure and kidney disease Echocardiogram did show small to moderate pericardial effusion (no evidence of tamponade) - cardiology recommends repeat echocardiogram next week if patient is still hospitalized otherwise contact Cardiology upon discharge to schedule outpatient repeat Diffuse joint pains: Likely in setting of lupus flare up elevated LDH discussed with Rheumatology, to do a kidney biopsy and treat with high-dose steroids (day 3/3) Continue home azathioprine, hydroxychloroquine Dilaudid p.r.n. KALEIGH Baseline creatinine around 0.8. Creatinine 2.07 today h/o lupus nephritis kidney US -no acute changes Nephrology input appreciated, complement and immunofixation pending; Status post kidney biopsy to eval for lupus nephritis 03/21, results pending treat with high-dose steroids for 3 days and mycophenolate monitor intake and output Follow BMP IVF Metabolic acidosis Secondary to renal dysfunction bicarb up to 16 today Workup ongoing Nephrology following acute on chronic anemia acute blood loss r/t menstruation on anemia of chronic disease Patient's baseline hemoglobin is around 9.5. on presentation was 7.8. Status post 1 unit of PRBC in the ER. Evaluated by voice teacher for dysfunctional uterine bleeding,pelvic ultrasound- no significant abnormalities, TSH wnl plan to change control as outpatient Hypertensive urgency: Significantly elevated blood pressure readings continue amlodipine, labetalol and hydralazine Labetalol p.r.n. titrate blood pressure medications as needed BV Gardnerella + Will start Flagyl twice daily x7 days Tobacco dependence Counseled on smoking cessation. Patient refused nicotine patch. DVT prophylaxis- SCDs Attending-Dr. still The patient will need overnight hospital stay to continue evaluation and t reatment of acute kidney injury, lupus flare up pending further evaluation to prevent possible decompensation Quality Stroke Does the patient have a stroke diagnosis?: No VTE Prior VTE?: No VTE Risk Level:: Medical - moderate - high VTE Device Contraindication: Treatment Not Indicated VTE Drug Contraindication: N/A - Med Ordered
[2022-03-22] MEDS: Lactated Ringers 1,000 ML 100 ML IVCONT (13:20)
[2022-03-22] MEDS: metroNIDAZOLE 500 MG TABLET PO ×2 (13:20→23:30)
[2022-03-22 14:03] LABS: Anti Glomerular Basement Memb <1.0 AI; Myeloperoxidase Antibody <1.0 AI; Proteinase 3 PR3 Antibodies <1.0 AI
[2022-03-22 14:08] LABS: Alanine Aminotransferase 7 U/L (0-31); Albumin Level 2.5 g/dL (3.5-5.0); Alkaline Phosphatase 31 U/L (39-117); Aspartate Amino Transferase 12 U/L (5-31); Bilirubin Direct < 0.2 mg/dL (0.0-0.5); Bilirubin Total 0.2 mg/dL (0.0-1.0)
[2022-03-22 14:37] LABS: Haptoglobin <8 mg/dL (43-212)
[2022-03-22 15:02] LABS: Prot Elec - Albumin 2.7 g/dL (3.8-4.8); Prot Elec - Alpha1 0.4 g/dL (0.2-0.3); Prot Elec - Alpha2 0.7 g/dL (0.5-0.9); Prot Elec - Beta 1 0.3 g/dL (0.4-0.6); Prot Elec - Beta 2 0.3 g/dL (0.2-0.5); Prot Elec - Total Protein 5.3 g/dL (6.1-8.1)
[2022-03-22] MEDS: Omeprazole 40 MG CAPSULE.DR PO (15:04)
[2022-03-22] MEDS: Acetaminophen 325 MG TABLET 650 MG PO (15:05)
[2022-03-22] MEDS: methylPREDNISolone Sod Succ 1,000 MG in 0.9 % Sodium Chloride 50 ML 66 MG IV (16:01)
[2022-03-22] MEDS: 0.9 % Sodium Chloride Flush 3 ML SYRINGE IVFLUSH (20:59)
[2022-03-23] VITALS (7 sets, daily range): BP systolic 141–169; BP diastolic 73–93; PULSE 81–99; RESP 16–20; TEMP 36.5–36.9; O2SAT 97–100
[2022-03-23] MEDS: Acetaminophen 325 MG TABLET 650 MG PO (02:34)
[2022-03-23] MEDS: oxyCODONE HCl Immed Release 5 MG TABLET PO ×5 (02:34→23:42)
[2022-03-23] MEDS: Melatonin 3 MG TABLET 6 MG PO ×2 (02:34→23:43)
[2022-03-23] MEDS: HYDROmorphone HCl 0.5 MG/0.5 ML SYRINGE IVPUSH ×5 (04:11→23:43)
--- NOTE | 2022-03-23 08:04 | P.PNNP_ITS ---
Subjective Subjective Date of Service: 03/23/22 Interval history: Seen and examined this morning Follow-up for KALEIGH Patient with menstrual bleeding No chest pain, nausea, vomiting, shortness of breath, reports some epigastric discomfort Physical Exam Vital Signs: Vital Signs: Last Vital Signs Temp 98.3 F 03/23/22 07:04 Pulse 81 03/23/22 07:04 Resp 18 03/23/22 07:04 BP 168/88 H 03/23/22 07:04 Pulse Ox 99 03/23/22 07:04 O2 Del Method 03/23/22 07:04 BMI result Body Mass Index 23.1 Const: Other: Constitutional : Alert, oriented, not in distress Neck : Normal inspection, Supple Cardiovascular : RRR, no JVP, no lower extremity edema Respiratory : fair bilateral air entry, no crackles, wheezes or rhonchi Gastrointestinal: soft, lax, Normal bowel sounds, Non tender Skin : Warm, Dry, multiple bruises on her sent scan musculoskeletal: swollen hands, wrists, fingers and ankles mildly, range of motion mildly decreased enhance Neurological : Alert & oriented x3, No focal deficit , CN 2-12 within normal General: cooperative, comfortable and no acute distress Nutritional Appearance: average body habitus Orientation/consciousness: patient oriented x3 Resp: Effort & Inspection: normal respiratory effort and able to speak in complete sentences Auscultation: clear to auscultation bilaterally Cardio: Rate: regular rate Heart sounds: S1 normal heart sound present and S2 normal heart sound present GI: Inspection: No distended Palpation (GI): Soft to palpation and nontender Neuro: General: patient oriented x3 Extrem: General: Yes no pedal edema Objective Data Labs CBC & Chem 7: 03/22/22 08:12 03/22/22 08:12 Labs: Laboratory Results - last 24 hr 03/20/22 03/20/22 03/22/22 12:10 12:10 08:12 WBC 10.8 RBC 2.90 L Hgb 8.5 L Hct 26.2 L MCV 90.3 MCH 29.3 MCHC 32.4 RDW 16.7 H Plt Count 180 MPV 10.4 Absolute Nucleated RBC 0.000 Nucleated RBC % (auto) 0.0 Haptoglobin <8 L Sodium Potassium Chloride Carbon Dioxide Anion Gap BUN Creatinine Estim Creat Clear Calc Estimated GFR Random Glucose Calcium Total Bilirubin Direct Bilirubin AST ALT Alkaline Phosphatase Total Protein Total Protein (PEP) 5.3 L Albumin Albumin (PEP) 2.7 L Gjbvo-2-Fmdynxqxn 0.4 H Cwabc-1-Nfgstdxry 0.7 Vkvk-8-Zvellvif 0.3 L Ecdr-5-Tnnaajca 0.3 Gamma Globulins 1.0 Abnorm Protein Band 1 TNP Abnorm Protein Band 2 TNP Abnorm Protein Band 3 TNP PEP Interpretation SEE NOTE Proteinase 3 (PR3) Ab <1.0 Myeloperoxidase Ab <1.0 Glomerular Base Memb Ab <1.0 03/22/22 08:12 WBC RBC Hgb Hct MCV MCH MCHC RDW Plt Count MPV Absolute Nucleated RBC Nucleated RBC % (auto) Haptoglobin Sodium 139 Potassium 5.2 H Chloride 115 H Carbon Dioxide 16 L Anion Gap 13 BUN 56 H Creatinine 2.07 H Estim Creat Clear Calc 39.3 Estimated GFR 29 Random Glucose 129 H Calcium 8.0 L Total Bilirubin 0.2 Direct Bilirubin < 0.2 AST 12 D ALT 7 Alkaline Phosphatase 31 L Total Protein 5.0 L Total Protein (PEP) Albumin 2.5 L Albumin (PEP) Kadmj-2-Lgnndevpz Zukqe-2-Xubaeyduq Vziq-0-Tbgcvqkm Zwhl-5-Autkyctf Gamma Globulins Abnorm Protein Band 1 Abnorm Protein Band 2 Abnorm Protein Band 3 PEP Interpretation Proteinase 3 (PR3) Ab Myeloperoxidase Ab Glomerular Base Memb Ab Microbiology Microbiology Results: Microbiology 03/19/22 16:40 Urine clean catch - Urine akers top Urine Culture - Final No growth. 03/20/22 09:30 Vaginal Trichomonas Preparation - Final Procedures Date of Service Date of Service: 03/23/22 Assessment & Plan Assessment and plan (1) Abnormal uterine bleeding: Status: Acute (2) Hypertensive urgency: Status: Acute (3) KALEIGH (acute kidney injury): Status: Acute (4) Pericardial effusion: Status: Acute Plan 26-year-old female with a past medical history of hypertension, lupus, recent history of COVID-19 infection, renal insufficiency; presented to the hospital today with a chief complaint of diffuse body pains/chest pain. Noted to have following conditions Chest pain resolved. EKG nonischemic, no evidence of pericarditis Troponin-197->172->121. Seen by Cardiology - no evidence of ACS. elevation in cardiac enzymes likely secondary to high blood pressure and kidney disease Echocardiogram did show small to moderate pericardial effusion (no evidence of tamponade) - cardiology recommends repeat echocardiogram next week if patient is still hospitalized otherwise contact Cardiology upon discharge to schedule outpatient repeat Diffuse joint pains: Likely in setting of lupus flare up elevated LDH discussed with Rheumatology, to do a kidney biopsy and treat with high-dose steroids (day 3/3) Continue home azathioprine, hydroxychloroquine Dilaudid p.r.n. KALEIGH Baseline creatinine around 0.8. Creatinine 2.07 today h/o lupus nephritis kidney US -no acute changes Nephrology input appreciated, complement and immunofixation pending; Status post kidney biopsy to eval for lupus nephritis 03/21, results pending treat with high-dose steroids for 3 days and mycophenolate monitor intake and output Follow BMP IVF Metabolic acidosis Secondary to renal dysfunction bicarb up to 16 today Workup ongoing Nephrology following acute on chronic anemia acute blood loss r/t menstruation on anemia of chronic disease Patient's baseline hemoglobin is around 9.5. on presentation was 7.8. Status post 1 unit of PRBC in the ER. Evaluated by partnership marketing manager for dysfunctional uterine bleeding,pelvic ultrasound- no significant abnormalities, TSH wnl plan to change control as outpatient Hypertensive urgency: Significantly elevated blood pressure readings continue amlodipine, labetalol and hydralazine Labetalol p.r.n. 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
[2022-03-23 09:11] LABS: MANUAL DIFF FLAG NO
[2022-03-23 09:21] LABS: Basophils Percent Auto 0.1 % (0-2); Hematocrit 26.9 % (37.0-47.0); Hemoglobin 8.7 g/dl (12.0-16.0); Imm Gran Abs Auto 0.09 X10*3/uL (0.00-0.03); Imm Gran Pct Auto 0.9 % (0.0-0.4); Lymphocytes Absolute Auto 0.7 X10*3/uL (1.2-4.9); Lymphocytes Percent Auto 6.9 % (20-40); Mean Corpuscular HGB Conc 32.3 g/dl (31.0-35.0); Mean Corpuscular Hemoglobin 29.1 pg (27.0-33.0); Mean Platelet Volume 9.9 fL (9.4-12.3); Monocytes Absolute Auto 0.3 X10*3/uL (0.1-1.2); Monocytes Percent Auto 2.7 % (2-11); Neutrophils Absolute Auto 8.9 x10*3/uL (2.0-8.3); Neutrophils Percent Auto 89.4 % (45-73); Platelet Count 195 X10*3/uL (160-400); Red Blood Count 2.99 X10*6/uL (4.20-5.50); Red Cell Distribution Width 17.2 % (11.0-16.0)
[2022-03-23] MEDS: predniSONE 20 MG TABLET 60 MG PO (09:24)
[2022-03-23] MEDS: Hydroxychloroquine Sulfate 200 MG TABLET 300 MG PO (09:25)
[2022-03-23] MEDS: mycophenolate mofetiL 250 MG CAPSULE 1000 MG PO ×2 (09:25→21:44)
[2022-03-23] MEDS: Escitalopram Oxalate 10 MG TABLET PO (09:25)
[2022-03-23] MEDS: Labetalol HCL 100 MG TABLET PO ×2 (09:25→14:18)
[2022-03-23] MEDS: 0.9 % Sodium Chloride Flush 3 ML SYRINGE IVFLUSH ×3 (09:26→21:45)
[2022-03-23] MEDS: amLODIPine Besylate 10 MG TABLET PO (09:26)
[2022-03-23] MEDS: hydrALAZINE HCl 50 MG TABLET PO ×2 (09:26→14:22)
[2022-03-23] MEDS: Sodium Zirconium Cyclosilicate 5 GM POWD.PACK PO (09:27)
[2022-03-23] MEDS: Iron Sucrose Complex 200 MG in 0.9 % Sodium Chloride 100 ML 440 MG IV (09:28)
[2022-03-23 09:54] LABS: Anion Gap 13 (12-20); Blood Urea Nitrogen 65 mg/dL (9-16); Calcium 8.2 mg/dL (8.4-10.2); Carbon Dioxide 16 mmol/L (22-29); Chloride 116 mmol/L (96-108); Creatinine Clr Calc Pharmacy 41.7; Estimated Glomerular Filt Rate 31; Glucose Random 127 mg/dL (60-115); Potassium 5.1 mmol/L (3.3-5.1); Sodium 140 mmol/L (135-145)
--- NOTE | 2022-03-23 10:17 | HO.PM.IMPN ---
Subjective Subjective Date of Service: 03/23/22 Review of Systems Follow up Lupus nephritis joint pain pain at biopsy site Physical Exam Vital Signs: Vital Signs: Last Vital Signs Temp 98.3 F 03/23/22 07:04 Pulse 81 03/23/22 07:04 Resp 18 03/23/22 09:28 BP 168/88 H 03/23/22 07:04 Pulse Ox 99 03/23/22 07:04 O2 Del Method 03/23/22 07:04 BMI result Body Mass Index 23.1 Appearing in no acute distress lung sounds are clear to auscultation heart regular rate rhythm, clear S1, S2 positive bowel sounds, abdomen is soft, nontender neuro patient is alert x3, no focal deficits Objective Data Active Medications Acetaminophen (Acetaminophen 325 Mg Tablet) 650 mg PO Q6H PRN PRN Reason: Pain, Mild (Pain Scale 1-3) Last Admin: 03/23/22 02:34 Dose: 650 mg Documented By: JEAN-PAUL Amlodipine Besylate (Amlodipine Besylate 10 Mg Tablet) 10 mg PO DAILY [facility]; Protocol Last Admin: 03/23/22 09:26 Dose: 10 mg Documented By: SOFY Azathioprine (Azathioprine 50 Mg Tablet) 50 mg PO DAILY [facility] Last Admin: 03/23/22 09:47 Dose: Not Given Documented By: SOFY Non-Admin Reason: Physician Held Med Escitalopram Oxalate (Escitalopram Oxalate 10 Mg Tablet) 10 mg PO DAILY [facility] Last Admin: 03/23/22 09:25 Dose: 10 mg Documented By: SOFY Hydralazine HCl (Hydralazine Hcl 50 Mg Tablet) 50 mg PO TID [facility]; Protocol Last Admin: 03/23/22 09:26 Dose: 50 mg Documented By: SOFY Hydromorphone HCl (Hydromorphone Hcl 0.5 Mg/0.5 Ml Syringe) 0.5 mg IVPUSH Q4H PRN; Protocol PRN Reason: Pain, Severe (Pain Scale 7-10) Last Admin: 03/23/22 09:28 Dose: 0.5 mg Documented By: SOFY Hydroxychloroquine Sulfate (Hydroxychloroquine Sulfate 200 Mg Tablet) 300 mg PO DAILY [facility] Last Admin: 03/23/22 09:25 Dose: 300 mg Documented By: SOFY Labetalol HCl (Labetalol Hcl 100 Mg Tablet) 100 mg PO TID [facility]; Protocol Last Admin: 03/23/22 09:25 Dose: 100 mg Documented By: SOFY Melatonin (Melatonin 3 Mg Tablet) 6 mg PO BEDTIME PRN PRN Reason: Insomnia Last Admin: 03/23/22 02:34 Dose: 6 mg Documented By: JEAN-PAUL Metronidazole (Metronidazole 500 Mg Tablet) 500 mg PO Q12H [facility] Stop: 03/29/22 12:14 Last Admin: 03/22/22 23:30 Dose: 500 mg Documented By: JEAN-PAUL Mycophenolate Mofetil (Mycophenolate Mofetil 250 Mg Capsule) 1,000 mg PO BID [facility] Last Admin: 03/23/22 09:25 Dose: 1,000 mg Documented By: SOFY Omeprazole (Omeprazole 40 Mg Capsule.Dr) 40 mg PO BID@0630,1630 [facility] Last Admin: 03/23/22 04:12 Dose: Not Given Documented By: JEAN-PAUL Non-Admin Reason: Patient Refused Oxycodone HCl (Oxycodone Hcl Immed Release 5 Mg Tablet) 5 mg PO Q4H PRN PRN Reason: Pain, Severe (Pain Scale 7-10) Last Admin: 03/23/22 09:52 Dose: 5 mg Documented By: BETSY Prednisone (Prednisone 20 Mg Tablet) 60 mg PO DAILY [facility] Last Admin: 03/23/22 09:24 Dose: 60 mg Documented By: SOFY Senna (Sennosides 8.6 Mg Tablet) 17.2 mg PO BEDTIME PRN PRN Reason: Constipation Sodium Chloride (0.9 % Sodium Chloride Flush 3 Ml Syringe) 3 ml IVFLUSH QSHIFT [facility] Last Admin: 03/23/22 09:26 Dose: 3 ml Documented By: SOFY Sodium Zirconium Cyclosilicate (Sodium Zirconium Cyclosilicate 5 Gm Powd.Pack) 5 gm PO DAILY [facility] Last Admin: 03/23/22 09:27 Dose: 5 gm Documented By: SOFY Labs CBC & Chem 7: 03/23/22 09:07 03/23/22 09:07 Labs: Laboratory Results - last 24 hr 03/20/22 03/20/22 03/22/22 12:10 12:10 08:12 MCV MCH MCHC RDW Plt Count MPV Immature Gran % (Auto) Neut % (Auto) Lymph % (Auto) Ralls % (Auto) Eos % (Auto) Baso % (Auto) Lymph # (Auto) Ralls # (Auto) Eos # (Auto) Baso # (Auto) Abs Immat Gran (auto) Absolute Neuts (auto) Absolute Nucleated RBC Nucleated RBC % (auto) Haptoglobin <8 L Anion Gap Estim Creat Clear Calc Estimated GFR Random Glucose Calcium Total Bilirubin 0.2 Direct Bilirubin < 0.2 AST 12 D ALT 7 Alkaline Phosphatase 31 L Total Protein 5.0 L Total Protein (PEP) 5.3 L Albumin 2.5 L Albumin (PEP) 2.7 L Zacfg-2-Fhnodilbf 0.4 H Tmnmn-8-Mtdgqvzne 0.7 Sqdg-9-Tyjcgfdp 0.3 L Gsko-9-Lvbrgpbz 0.3 Gamma Globulins 1.0 Abnorm Protein Band 1 TNP Abnorm Protein Band 2 TNP Abnorm Protein Band 3 TNP PEP Interpretation SEE NOTE Proteinase 3 (PR3) Ab <1.0 Myeloperoxidase Ab <1.0 Glomerular Base Memb Ab <1.0 03/23/22 03/23/22 09:07 09:07 MCV 90.0 MCH 29.1 MCHC 32.3 RDW 17.2 H Plt Count 195 MPV 9.9 Immature Gran % (Auto) 0.9 H Neut % (Auto) 89.4 H Lymph % (Auto) 6.9 L Ralls % (Auto) 2.7 Eos % (Auto) 0.0 Baso % (Auto) 0.1 Lymph # (Auto) 0.7 L Ralls # (Auto) 0.3 Eos # (Auto) 0.0 Baso # (Auto) 0.0 Abs Immat Gran (auto) 0.09 H Absolute Neuts (auto) 8.9 H Absolute Nucleated RBC 0.000 Nucleated RBC % (auto) 0.0 Haptoglobin Anion Gap 13 Estim Creat Clear Calc 41.7 Estimated GFR 31 Random Glucose 127 H Calcium 8.2 L Total Bilirubin Direct Bilirubin AST ALT Alkaline Phosphatase Total Protein Total Protein (PEP) Albumin Albumin (PEP) Dvjdt-3-Azqaarswe Lnrjg-6-Gazbaremn Qwad-6-Uminbqfx Iysx-9-Qstykjqf Gamma Globulins Abnorm Protein Band 1 Abnorm Protein Band 2 Abnorm Protein Band 3 PEP Interpretation Proteinase 3 (PR3) Ab Myeloperoxidase Ab Glomerular Base Memb Ab Assessment and Plan (1) Abnormal uterine bleeding: Status: Acute (2) Hypertensive urgency: Status: Acute (3) KALEIGH (acute kidney injury): Status: Acute (4) Pericardial effusion: Status: Acute Plan 26-year-old female with a past medical history of hypertension, lupus, recent history of COVID-19 infection, renal insufficiency; presented to the hospital today with a chief complaint of diffuse body pains/chest pain. Noted to have following conditions Chest pain resolved. EKG nonischemic, no evidence of pericarditis Troponin-197->172->121. Seen by Cardiology - no evidence of ACS. elevation in cardiac enzymes likely secondary to high blood pressure and kidney disease Echocardiogram did show small to moderate pericardial effusion (no evidence of tamponade) - cardiology recommends repeat echocardiogram next week if patient is still hospitalized otherwise contact Cardiology upon discharge to schedule outpatient repeat Diffuse joint pains Likely in setting of lupus flare up elevated LDH discussed with Rheumatology, treated with high-dose steroids (day 3/3) Continue home azathioprine, hydroxychloroquine Dilaudid p.r.n. KALEIGH Baseline creatinine around 0.8. Creatinine 2.07 today SLE lupus nephritis on biopsy kidney US -no acute changes Nephrology input appreciated, complement c3, c4(51, 10) and immunofixation pending treat with high-dose steroids for 3 days and mycophenolate, completed monitor intake and output Follow BMP IVF stopped Metabolic acidosis Secondary to renal dysfunction bicarb up to 16 today Workup ongoing Nephrology following acute on chronic anemia acute blood loss r/t menstruation on anemia of chronic disease Patient's baseline hemoglobin is around 9.5. on presentation was 7.8. Status post 1 unit of PRBC in the ER. Evaluated by bulk tank driver for dysfunctional uterine bleeding,pelvic ultrasound- no significant abnormalities, TSH wnl plan to change control as outpatient One dose of IV iron per nephrology Hypertensive urgency. Resolved Significantly elevated blood pressure readings continue amlodipine, labetalol and hydralazine Labetalol p.r.n. titrate blood pressure medications as needed BV Gardnerella + Will start Flagyl twice daily x7 days Tobacco dependence Counseled on smoking cessation. Patient refused nicotine patch. DVT prophylaxis- SCDs Attending-Dr. Sorensen The patient will need overnight hospital stay to continue evaluation and treatment of acute kidney injury, lupus flare up pending further evaluation to prevent possible decompensation Quality Stroke Does the patient have a stroke diagnosis?: No VTE Prior VTE?: No VTE Risk Level:: Medical - moderate - high VTE Device Contraindication: Treatment Not Indicated VTE Drug Contraindication: N/A - Med Ordered
[2022-03-23] MEDS: metroNIDAZOLE 500 MG TABLET PO (14:19)
[2022-03-23] MEDS: Omeprazole 40 MG CAPSULE.DR PO (16:35)
[2022-03-23] MEDS: diphenhydrAMINE HCL 50 MG/ML VIAL 25 MG IVPUSH (21:44)
[2022-03-24] VITALS (9 sets, daily range): BP systolic 140–184; BP diastolic 64–93; PULSE 80–92; RESP 18–19; TEMP 36.4–37.1; O2SAT 96–100
[2022-03-24] MEDS: metroNIDAZOLE 500 MG TABLET PO ×2 (00:15→16:15)
[2022-03-24] MEDS: HYDROmorphone HCl 0.5 MG/0.5 ML SYRINGE IVPUSH ×4 (04:03→21:56)
[2022-03-24] MEDS: oxyCODONE HCl Immed Release 5 MG TABLET PO ×2 (04:03→10:25)
[2022-03-24] MEDS: diphenhydrAMINE HCL 50 MG/ML VIAL 25 MG IVPUSH (04:31)
[2022-03-24 07:27] LABS: Anion Gap 11 (12-20); Blood Urea Nitrogen 71 mg/dL (9-16); Calcium 7.9 mg/dL (8.4-10.2); Carbon Dioxide 17 mmol/L (22-29); Chloride 115 mmol/L (96-108); Creatinine Clr Calc Pharmacy 43.9; Estimated Glomerular Filt Rate 32; Glucose Random 98 mg/dL (60-115); Potassium 5.1 mmol/L (3.3-5.1); Sodium 138 mmol/L (135-145)
[2022-03-24] MEDS: predniSONE 20 MG TABLET 60 MG PO (10:22)
[2022-03-24] MEDS: Escitalopram Oxalate 10 MG TABLET PO (10:23)
[2022-03-24] MEDS: Labetalol HCL 100 MG TABLET PO ×3 (10:23→21:54)
[2022-03-24] MEDS: mycophenolate mofetiL 250 MG CAPSULE 1000 MG PO ×2 (10:23→21:56)
[2022-03-24] MEDS: hydrALAZINE HCl 50 MG TABLET PO ×3 (10:24→21:55)
[2022-03-24] MEDS: amLODIPine Besylate 10 MG TABLET PO (10:24)
[2022-03-24] MEDS: Sodium Zirconium Cyclosilicate 5 GM POWD.PACK PO (10:25)
[2022-03-24] MEDS: Hydroxychloroquine Sulfate 200 MG TABLET 300 MG PO (10:25)
[2022-03-24] MEDS: azaTHIOprine 50 MG TABLET PO (10:25)
[2022-03-24] MEDS: 0.9 % Sodium Chloride Flush 3 ML SYRINGE IVFLUSH ×3 (10:27→21:57)
--- NOTE | 2022-03-24 11:06 | P.PNIM_ITS ---
Subjective Subjective Date of Service: 03/24/22 Review of Systems Follow up Lupus nephritis joint pain pain at biopsy site Physical Exam Vital Signs: Vital Signs: Last Vital Signs Temp 98.6 F 03/24/22 08:00 Pulse 80 03/24/22 08:00 Resp 18 03/24/22 08:00 BP 184/76 H 03/24/22 10:42 Pulse Ox 98 03/24/22 08:00 O2 Del Method 03/24/22 08:00 BMI result Body Mass Index 23.1 Appearing in no acute distress lung sounds are clear to auscultation heart regular rate rhythm, clear S1, S2 positive bowel sounds, abdomen is soft, nontender neuro patient is alert x3, no focal deficits Objective Data Active Medications Acetaminophen (Acetaminophen 325 Mg Tablet) 650 mg PO Q6H PRN PRN Reason: Pain, Mild (Pain Scale 1-3) Last Admin: 03/23/22 02:34 Dose: 650 mg Documented By: JEAN-PAUL Amlodipine Besylate (Amlodipine Besylate 10 Mg Tablet) 10 mg PO DAILY [facility]; Protocol Last Admin: 03/24/22 10:24 Dose: 10 mg Documented By: BETSY Azathioprine (Azathioprine 50 Mg Tablet) 50 mg PO DAILY [facility] Last Admin: 03/24/22 10:25 Dose: 50 mg Documented By: BETSY Escitalopram Oxalate (Escitalopram Oxalate 10 Mg Tablet) 10 mg PO DAILY [facility] Last Admin: 03/24/22 10:23 Dose: 10 mg Documented By: BETSY Hydralazine HCl (Hydralazine Hcl 50 Mg Tablet) 50 mg PO TID [facility]; Protocol Last Admin: 03/24/22 10:24 Dose: 50 mg Documented By: BETSY Hydromorphone HCl (Hydromorphone Hcl 0.5 Mg/0.5 Ml Syringe) 0.5 mg IVPUSH Q4H PRN; Protocol PRN Reason: Pain, Severe (Pain Scale 7-10) Last Admin: 03/24/22 10:26 Dose: 0.5 mg Documented By: BETSY Hydroxychloroquine Sulfate (Hydroxychloroquine Sulfate 200 Mg Tablet) 300 mg PO DAILY [facility] Last Admin: 03/24/22 10:25 Dose: 300 mg Documented By: BETSY Labetalol HCl (Labetalol Hcl 100 Mg Tablet) 100 mg PO TID [facility]; Protocol Last Admin: 03/24/22 10:23 Dose: 100 mg Documented By: BETSY Melatonin (Melatonin 3 Mg Tablet) 6 mg PO BEDTIME PRN PRN Reason: Insomnia Last Admin: 03/23/22 23:43 Dose: 6 mg Documented By: DEB Metronidazole (Metronidazole 500 Mg Tablet) 500 mg PO Q12H [facility] Stop: 03/29/22 12:14 Last Admin: 03/24/22 00:15 Dose: 500 mg Documented By: DEB Mycophenolate Mofetil (Mycophenolate Mofetil 250 Mg Capsule) 1,000 mg PO BID [facility] Last Admin: 03/24/22 10:23 Dose: 1,000 mg Documented By: BETSY Omeprazole (Omeprazole 40 Mg Capsule.Dr) 40 mg PO BID@0630,1630 [facility] Last Admin: 03/24/22 05:25 Dose: Not Given Documented By: DEB Non-Admin Reason: Patient Refused Oxycodone HCl (Oxycodone Hcl Immed Release 5 Mg Tablet) 5 mg PO Q4H PRN PRN Reason: Pain, Severe (Pain Scale 7-10) Last Admin: 03/24/22 10:25 Dose: 5 mg Documented By: BETSY Prednisone (Prednisone 20 Mg Tablet) 60 mg PO DAILY [facility] Last Admin: 03/24/22 10:22 Dose: 60 mg Documented By: BETSY Senna (Sennosides 8.6 Mg Tablet) 17.2 mg PO BEDTIME PRN PRN Reason: Constipation Sodium Chloride (0.9 % Sodium Chloride Flush 3 Ml Syringe) 3 ml IVFLUSH QSHIFT [facility] Last Admin: 03/24/22 10:27 Dose: 3 ml Documented By: BETSY Sodium Zirconium Cyclosilicate (Sodium Zirconium Cyclosilicate 5 Gm Powd.Pack) 5 gm PO DAILY [facility] Last Admin: 03/24/22 10:25 Dose: 5 gm Documented By: BETSY Labs CBC & Chem 7: 03/23/22 09:07 03/24/22 06:30 Labs: Laboratory Results - last 24 hr 03/24/22 06:30 Anion Gap 11 L Estim Creat Clear Calc 43.9 Estimated GFR 32 Random Glucose 98 Calcium 7.9 L Assessment and Plan (1) Abnormal uterine bleeding: Status: Acute (2) Hypertensive urgency: Status: Acute (3) KALEIGH (acute kidney injury): Status: Acute (4) Pericardial effusion: Status: Acute Plan 26-year-old female with a past medical history of hypertension, lupus, recent history of COVID-19 infection, renal insufficiency; presented to the hospital today with a chief complaint of diffuse body pains/chest pain. Noted to have following conditions Chest pain resolved. EKG nonischemic, no evidence of pericarditis Troponin-197->172->121. Seen by Cardiology - no evidence of ACS. elevation in cardiac enzymes likely secondary to high blood pressure and kidney disease Echocardiogram did show small to moderate pericardial effusion (no evidence of tamponade) - cardiology recommends repeat echocardiogram next week if patient is still hospitalized otherwise contact Cardiology upon discharge to schedule outpatient repeat Diffuse joint pains Likely in setting of lupus flare up elevated LDH discussed with Rheumatology, treated with high-dose steroids (day 3/3) Continue home azathioprine, hydroxychloroquine Dilaudid and oxycodone prn KALEIGH Baseline creatinine around 0.8. 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 on presentation was 7.8. Status post 1 unit of PRBC in the ER. Evaluated by green end worker for dysfunctional uterine bleeding,pelvic ultrasound- no significant abnormalities, TSH wnl plan to change control as outpatient One dose of IV iron per nephrology Hypertensive urgency. Resolved Significantly elevated blood pressure readings continue amlodipine, labetalol and hydralazine Labetalol p.r.n. titrate blood pressure medications as needed BV Gardnerella + Will start Flagyl twice daily x7 days Tobacco dependence Counseled on smoking cessation. Patient refused nicotine patch. DVT prophylaxis- SCDs Attending-Dr. Sorensen The patient will need overnight hospital stay to continue evaluation and treatment of acute kidney injury, lupus flare up pending further evaluation to prevent possible decompensation Quality Stroke Does the patient have a stroke diagnosis?: No VTE Prior VTE?: No VTE Risk Level:: Medical - moderate - high VTE Device Contraindication: Treatment Not Indicated VTE Drug Contraindication: N/A - Med Ordered
--- NOTE | 2022-03-24 12:31 | PM.PNNEP ---
Subjective Subjective Date of Service: 03/24/22 Interval history: Seen and examined this morning Follow-up for KALEIGH Patient with menstrual bleeding No chest pain, nausea, vomiting, shortness of breath, reports some epigastric discomfort Physical Exam Vital Signs: Vital Signs: Last Vital Signs Temp 98.1 F 03/24/22 11:36 Pulse 83 03/24/22 11:36 Resp 18 03/24/22 11:36 BP 166/72 H 03/24/22 12:00 Pulse Ox 100 03/24/22 11:36 O2 Del Method 03/24/22 11:36 BMI result Body Mass Index 23.1 Const: Other: Constitutional : Alert, oriented, not in distress Neck : Normal inspection, Supple Cardiovascular : RRR, no JVP, no lower extremity edema Respiratory : fair bilateral air entry, no crackles, wheezes or rhonchi Gastrointestinal: soft, lax, Normal bowel sounds, Non tender Skin : Warm, Dry, multiple bruises on her sent scan musculoskeletal: swollen hands, wrists, fingers and ankles mildly, range of motion mildly decreased enhance Neurological : Alert & oriented x3, No focal deficit , CN 2-12 within normal General: cooperative, comfortable and no acute distress Nutritional Appearance: average body habitus Orientation/consciousness: patient oriented x3 Resp: Effort & Inspection: normal respiratory effort and able to speak in complete sentences Auscultation: clear to auscultation bilaterally Cardio: Rate: regular rate Heart sounds: S1 normal heart sound present and S2 normal heart sound present GI: Inspection: No distended Palpation (GI): Soft to palpation and nontender Neuro: General: patient oriented x3 Extrem: General: Yes no pedal edema Objective Data Labs CBC & Chem 7: 03/23/22 09:07 03/24/22 06:30 Labs: Laboratory Results - last 24 hr 03/24/22 06:30 Sodium 138 Potassium 5.1 Chloride 115 H Carbon Dioxide 17 L Anion Gap 11 L BUN 71 H Creatinine 1.85 H Estim Creat Clear Calc 43.9 Estimated GFR 32 Random Glucose 98 Calcium 7.9 L Microbiology Microbiology Results: Microbiology 03/19/22 16:40 Urine clean catch - Urine akers top Urine Culture - Final No growth. 03/20/22 09:30 Vaginal Trichomonas Preparation - Final Procedures Date of Service Date of Service: 03/24/22 Assessment & Plan Assessment and plan (1) Abnormal uterine bleeding: Status: Acute (2) Hypertensive urgency: Status: Acute (3) KALEIGH (acute kidney injury): Status: Acute (4) Pericardial effusion: Status: Acute Plan 26-year-old female with a past medical history of hypertension, lupus, recent history of COVID-19 infection, renal insufficiency; presented to the hospital today with a chief complaint of diffuse body pains/chest pain. Noted to have following conditions Chest pain resolved. EKG nonischemic, no evidence of pericarditis Troponin-197->172->121. Seen by Cardiology - no evidence of ACS. elevation in cardiac enzymes likely secondary to high blood pressure and kidney disease Echocardiogram did show small to moderate pericardial effusion (no evidence of tamponade) - cardiology recommends repeat echocardiogram next week if patient is still hospitalized otherwise contact Cardiology upon discharge to schedule outpatient repeat Diffuse joint pains Likely in setting of lupus flare up elevated LDH discussed with Rheumatology, treated with high-dose steroids (day 3/3) Continue home azathioprine, hydroxychloroquine Dilaudid and oxycodone prn KALEIGH Baseline creatinine around 0.8. 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 on presentation was 7.8. Status post 1 unit of PRBC in the ER. Evaluated by agent for dysfunctional uterine bleeding,pelvic ultrasound- no significant abnormalities, TSH wnl plan to change control as outpatient One dose of IV iron per nephrology Hypertensive urgency. 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
[2022-03-24] MEDS: Omeprazole 40 MG CAPSULE.DR PO (16:14)
[2022-03-24] MEDS: oxyCODONE HCl Immed Release 5 MG TABLET 10 MG PO ×2 (16:15→21:55)
[2022-03-24] MEDS: Melatonin 3 MG TABLET 6 MG PO (21:55)
[2022-03-25] VITALS (9 sets, daily range): BP systolic 139–163; BP diastolic 70–86; PULSE 77–101; RESP 15–20; TEMP 36.6–37.6; O2SAT 99–100
[2022-03-25] MEDS: metroNIDAZOLE 500 MG TABLET PO ×2 (00:06→12:16)
[2022-03-25] MEDS: oxyCODONE HCl Immed Release 5 MG TABLET 10 MG PO ×4 (03:50→21:32)
[2022-03-25] MEDS: HYDROmorphone HCl 0.5 MG/0.5 ML SYRINGE IVPUSH ×4 (03:51→20:14)
[2022-03-25] MEDS: Omeprazole 40 MG CAPSULE.DR PO ×2 (05:08→15:21)
--- NOTE | 2022-03-25 06:34 | PC.NURSE ---
P: Patient c/o right flank pain where biopsy was taken. Right lower back dressing clean, dry & intact. I: Medicated w/ oxycodone x2 & dilaudid x2 (See MAR). E: Medicated w/ good effect - patient alert, on cell phone frequ, moving indepedently. Tolerating snacks, no N/V.
[2022-03-25 07:22] LABS: Anion Gap 12 (12-20); Blood Urea Nitrogen 68 mg/dL (9-16); Calcium 7.9 mg/dL (8.4-10.2); Carbon Dioxide 16 mmol/L (22-29); Chloride 115 mmol/L (96-108); Estimated Glomerular Filt Rate 35; Glucose Random 139 mg/dL (60-115); Potassium 4.7 mmol/L (3.3-5.1); Sodium 138 mmol/L (135-145)
--- NOTE | 2022-03-25 09:25 | P.PNIM_ITS ---
Subjective Subjective Date of Service: 03/25/22 <Magnolia Garcia NP - Last Filed: 03/25/22 13:30> 03/25/22 <Gonzalez Sorensen MD - Last Filed: 03/25/22 16:46> Review of Systems Follow up Lupus nephritis joint pain pain at biopsy site <Magnolia Garcia NP - Last Filed: 03/25/22 13:30> Physical Exam Vital Signs: Vital Signs: Last Vital Signs Temp 99.6 F 03/25/22 08:52 Pulse 77 03/25/22 08:52 Resp 16 03/25/22 08:52 BP 154/79 H 03/25/22 08:52 Pulse Ox 99 03/25/22 08:52 O2 Del Method 03/25/22 08:52 BMI result Body Mass Index 23.1 <Magnolia Garcia NP - Last Filed: 03/25/22 13:30> Appearing in no acute distress head is normocephalic atraumatic eyes pupils are PERRLA sclera is anicteric mouth throat mucous membranes are intact and moist neck is supple no lymphadenopathy, no JVD noted lung sounds are clear to auscultation heart regular rate rhythm, clear S1, S2 positive bowel sounds, abdomen is soft, nontender neuro patient is alert x3, no focal deficits <Magnolia Garcia NP - Last Filed: 03/25/22 13:30> Objective Data Active Medications Acetaminophen (Acetaminophen 325 Mg Tablet) 650 mg PO Q6H PRN PRN Reason: Pain, Mild (Pain Scale 1-3) Last Admin: 03/23/22 02:34 Dose: 650 mg Documented By: JEAN-PAUL Amlodipine Besylate (Amlodipine Besylate 10 Mg Tablet) 10 mg PO DAILY [facility]; Protocol Last Admin: 03/24/22 10:24 Dose: 10 mg Documented By: BETSY Azathioprine (Azathioprine 50 Mg Tablet) 50 mg PO DAILY [facility] Last Admin: 03/24/22 10:25 Dose: 50 mg Documented By: BETSY Escitalopram Oxalate (Escitalopram Oxalate 10 Mg Tablet) 10 mg PO DAILY [facility] Last Admin: 03/24/22 10:23 Dose: 10 mg Documented By: BETSY Hydralazine HCl (Hydralazine Hcl 50 Mg Tablet) 50 mg PO TID [facility]; Protocol Last Admin: 03/24/22 21:55 Dose: 50 mg Documented By: GILDA Hydromorphone HCl (Hydromorphone Hcl 0.5 Mg/0.5 Ml Syringe) 0.5 mg IVPUSH Q4H PRN; Protocol PRN Reason: Pain, Severe (Pain Scale 7-10) Last Admin: 03/25/22 03:51 Dose: 0.5 mg Documented By: GILDA Hydroxychloroquine Sulfate (Hydroxychloroquine Sulfate 200 Mg Tablet) 300 mg PO DAILY [facility] Last Admin: 03/24/22 10:25 Dose: 300 mg Documented By: BETSY Labetalol HCl (Labetalol Hcl 100 Mg Tablet) 100 mg PO TID [facility]; Protocol Last Admin: 03/24/22 21:54 Dose: 100 mg Documented By: GILDA Melatonin (Melatonin 3 Mg Tablet) 6 mg PO BEDTIME PRN PRN Reason: Insomnia Last Admin: 03/24/22 21:55 Dose: 6 mg Documented By: GILDA Metronidazole (Metronidazole 500 Mg Tablet) 500 mg PO Q12H [facility] Stop: 03/29/22 12:14 Last Admin: 03/25/22 00:06 Dose: 500 mg Documented By: GILDA Mycophenolate Mofetil (Mycophenolate Mofetil 250 Mg Capsule) 1,000 mg PO BID [facility] Last Admin: 03/24/22 21:56 Dose: 1,000 mg Documented By: GILDA Omeprazole (Omeprazole 40 Mg Capsule.Dr) 40 mg PO BID@0630,1630 [facility] Last Admin: 03/25/22 05:08 Dose: 40 mg Documented By: GILDA Oxycodone HCl (Oxycodone Hcl Immed Release 5 Mg Tablet) 10 mg PO Q4H PRN PRN Reason: Pain, Severe (Pain Scale 7-10) Last Admin: 03/25/22 03:50 Dose: 10 mg Documented By: GILDA Prednisone (Prednisone 20 Mg Tablet) 60 mg PO DAILY [facility] Last Admin: 03/24/22 10:22 Dose: 60 mg Documented By: BETSY Senna (Sennosides 8.6 Mg Tablet) 17.2 mg PO BEDTIME PRN PRN Reason: Constipation Sodium Chloride (0.9 % Sodium Chloride Flush 3 Ml Syringe) 3 ml IVFLUSH QSHIFT [facility] Last Admin: 03/24/22 21:57 Dose: 3 ml Documented By: GILDA Sodium Zirconium Cyclosilicate (Sodium Zirconium Cyclosilicate 5 Gm Powd.Pack) 5 gm PO DAILY [facility] Last Admin: 03/24/22 10:25 Dose: 5 gm Documented By: BETSY <Magnolia Garcia NP - Last Filed: 03/25/22 13:30> Labs CBC & Chem 7: : 03/23/22 09:07 03/25/22 06:11 <Magnolia Garcia NP - Last Filed: 03/25/22 13:30> Labs: Laboratory Results - last 24 hr 03/25/22 06:11 Anion Gap 12 Estim Creat Clear Calc 47.0 Estimated GFR 35 Random Glucose 139 H Calcium 7.9 L <Magnolia Garcia NP - Last Filed: 03/25/22 13:30> Assessment and Plan (1) Abnormal uterine bleeding: Status: Acute <Magnolia Garcia NP - Last Filed: 03/25/22 13:30> (2) Hypertensive urgency: Status: Acute <Magnolia Garcia NP - Last Filed: 03/25/22 13:30> (3) KALEIGH (acute kidney injury): Status: Acute <Magnolia Garcia NP - Last Filed: 03/25/22 13:30> (4) Pericardial effusion: Status: Acute <Magnolia Garcia NP - Last Filed: 03/25/22 13:30> Assessment and Plan: 26-year-old female with a past medical history of hypertension, lupus, recent history of COVID-19 infection, renal insufficiency; presented to the hospital today with a chief complaint of diffuse body pains/chest pain. Noted to have following conditions KALEIGH Baseline creatinine around 0.8. 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 EKG nonischemic, no evidence of pericarditis Troponin-197->172->121. Seen by Cardiology - no evidence of ACS. elevation in cardiac enzymes likely secondary to high blood pressure and kidney disease Echocardiogram did show small to moderate pericardial effusion (no evidence of tamponade) - cardiology recommends repeat echocardiogram next week if patient is still hospitalized otherwise contact Cardiology upon discharge to schedule outpatient repeat Diffuse joint pains Likely in setting of lupus flare up elevated LDH discussed with Rheumatology, treated with high-dose steroids (day 3/3) Continue home azathioprine, hydroxychloroquine Dilaudid and oxycodone prn Metabolic acidosis Secondary to renal dysfunction bicarb up to 16 today Workup ongoing Nephrology following acute on chronic anemia acute blood loss r/t menstruation on anemia of chronic disease Patient's baseline hemoglobin is around 9.5. on presentation was 7.8. Status post 1 unit of PRBC in the ER. Evaluated by caterer's aide for dysfunctional uterine bleeding,pelvic ultrasound- no significant abnormalities, TSH wnl plan to change control as outpatient One dose of IV iron per nephrology Hypertensive urgency. Resolved Significantly elevated blood pressure readings continue amlodipine, labetalol and hydralazine Labetalol p.r.n. titrate blood pressure medications as needed BV Gardnerella + Will start Flagyl twice daily x7 days Tobacco dependence Counseled on smoking cessation. Patient refused nicotine patch. DVT prophylaxis- SCDs Attending-Dr. Sorensen The patient will need continued hospital stay for treatment of acute kidney injury, lupus flare up pending further evaluation to prevent possible decompensation <Magnolia Garcia NP - Last Filed: 03/25/22 13:30> Quality Stroke Does the patient have a stroke diagnosis?: No <Magnolia Garcia NP - Last Filed: 03/25/22 13:30> VTE Prior VTE?: No <Magnolia Garcia NP - Last Filed: 03/25/22 13:30> VTE Risk Level:: Medical - moderate - high <Magnolia Garcia NP - Last Filed: 03/25/22 13:30> VTE Device Contraindication: Treatment Not Indicated <Magnolia Garcia NP - Last Filed: 03/25/22 13:30> VTE Drug Contraindication: N/A - Med Ordered <Magnolia Garcia NP - Last Filed: 03/25/22 13:30>
[2022-03-25] MEDS: Sodium Zirconium Cyclosilicate 5 GM POWD.PACK PO (09:28)
[2022-03-25] MEDS: Hydroxychloroquine Sulfate 200 MG TABLET 300 MG PO (09:29)
[2022-03-25] MEDS: Labetalol HCL 100 MG TABLET PO ×3 (09:33→20:17)
[2022-03-25] MEDS: mycophenolate mofetiL 250 MG CAPSULE 1000 MG PO ×2 (09:33→20:17)
[2022-03-25] MEDS: Escitalopram Oxalate 10 MG TABLET PO (09:33)
[2022-03-25] MEDS: predniSONE 20 MG TABLET 60 MG PO (09:34)
[2022-03-25] MEDS: amLODIPine Besylate 10 MG TABLET PO (09:36)
[2022-03-25] MEDS: azaTHIOprine 50 MG TABLET PO (09:36)
[2022-03-25] MEDS: 0.9 % Sodium Chloride Flush 3 ML SYRINGE IVFLUSH ×3 (09:36→20:22)
[2022-03-25] MEDS: hydrALAZINE HCl 50 MG TABLET PO ×3 (09:36→20:17)
--- NOTE | 2022-03-25 11:49 | MHC.CM.PN ---
Patient is not yet medically cleared for dc (required IV Dilaudid today and need for Nephrology r/t KALEIGH);Home/resume [employer] services remains to be the goal and CM will continue to follow.
--- NOTE | 2022-03-25 20:30 | PM.PNNEP ---
Subjective Subjective Date of Service: 03/25/22 Interval history: Seen and examined this morning cont w arthralgia Physical Exam Vital Signs: Vital Signs: Last Vital Signs Temp 98.7 F 03/25/22 20:00 Pulse 94 03/25/22 20:00 Resp 18 03/25/22 20:00 BP 163/82 H 03/25/22 20:00 Pulse Ox 100 03/25/22 20:00 O2 Del Method 03/25/22 20:00 BMI result Body Mass Index 23.1 Const: Other: Constitutional : Alert, oriented, not in distress Neck : Normal inspection, Supple Cardiovascular : RRR, no JVP, no lower extremity edema Respiratory : fair bilateral air entry, no crackles, wheezes or rhonchi Gastrointestinal: soft, lax, Normal bowel sounds, Non tender Skin : Warm, Dry, multiple bruises on her sent scan musculoskeletal: swollen hands, wrists, fingers and ankles mildly, range of motion mildly decreased enhance Neurological : Alert & oriented x3, No focal deficit , CN 2-12 within normal General: cooperative, comfortable and no acute distress Nutritional Appearance: average body habitus Orientation/consciousness: patient oriented x3 Resp: Effort & Inspection: normal respiratory effort and able to speak in complete sentences Auscultation: clear to auscultation bilaterally Cardio: Rate: regular rate Heart sounds: S1 normal heart sound present and S2 normal heart sound present GI: Inspection: No distended Palpation (GI): Soft to palpation and nontender Neuro: General: patient oriented x3 Extrem: General: Yes no pedal edema Objective Data Labs CBC & Chem 7: 03/23/22 09:07 03/25/22 06:11 Labs: Laboratory Results - last 24 hr 03/25/22 06:11 Sodium 138 Potassium 4.7 Chloride 115 H Carbon Dioxide 16 L Anion Gap 12 BUN 68 H Creatinine 1.73 H Estim Creat Clear Calc 47.0 Estimated GFR 35 Random Glucose 139 H Calcium 7.9 L Microbiology Microbiology Results: Microbiology 03/19/22 16:40 Urine clean catch - Urine akers top Urine Culture - Final No growth. 03/20/22 09:30 Vaginal Trichomonas Preparation - Final Procedures Date of Service Date of Service: 03/25/22 Assessment & Plan Assessment and plan (1) Abnormal uterine bleeding: Status: Acute (2) Hypertensive urgency: Status: Acute (3) KALEIGH (acute kidney injury): Status: Acute (4) Pericardial effusion: Status: Acute Plan 1. SLE Nephritis:s/p Rituxin and cellcept/pred started--per PT she had kidney Bx in Jul 2021 severe stage 4 SLE ( Dr Harrison) 2. SLE with signif arhtralgia 3. HTN 4. NAGMA 5. Anemia REC: cont pred/cellcept; start NaHCO3; check Fe studies; ? d/c imuran as she is on cellcept; f/u Dr Childers as oupt and eval for Lukymis as add on treatment Time Spent With Patient Time: Total time spent is greater than 50% in coordination of care (as documented) at patient's floor/unit and/or counseling patient: Progress Note: Quality Stroke Does the patient have a stroke diagnosis?: No
[2022-03-25] MEDS: Melatonin 3 MG TABLET 6 MG PO (21:32)
[2022-03-25 21:42] LABS: Anti DNA DS Antibody 81 IU/mL
[2022-03-26] MEDS: metroNIDAZOLE 500 MG TABLET PO (00:08)
[2022-03-26] MEDS: HYDROmorphone HCl 0.5 MG/0.5 ML SYRINGE IVPUSH ×3 (00:12→08:36)
[2022-03-26] MEDS: oxyCODONE HCl Immed Release 5 MG TABLET 10 MG PO ×3 (01:42→10:39)
[2022-03-26 04:00] VITALS: BP 162/104; PULSE 85; RESP 20; TEMP 36.8; O2SAT 100
[2022-03-26] MEDS: Omeprazole 40 MG CAPSULE.DR PO (06:00)
[2022-03-26 08:15] VITALS: BP 160/88; PULSE 87; RESP 17; TEMP 36.7; O2SAT 99
--- NOTE | 2022-03-26 08:28 | P.DS_ITS ---
DS: Providers Provider Date of Service: 03/26/22 Date of admission: 03/19/22 23:03 Primary care physician: Hernando Physician Consults: 03/19/22 23:03 Consult to Cardiology Routine Consulting Provider: Selvin López Reason for consultation: Elevated troponins Consult to Nephrology Routine Consulting Provider: Martin Harrison Reason for consultation: kaleigh Consult to Rheumatology Routine Consulting Provider: Terry Guzmán Reason for consultation: Lupus; diffuse joint pains; anemia 03/19/22 23:06 Consult to Obstetrics / Gynecology Routine Consulting Provider: Juan Wilks Reason for consultation: Dysfunctional uterine bleeding Attending physician on discharge: [facility] Discharging clinician: Magnolia Garcia DS: Diagnosis Discharge Diagnosis (1) Abnormal uterine bleeding: Status: Acute (2) Hypertensive urgency: Status: Acute (3) KALEIGH (acute kidney injury): Status: Acute (4) Pericardial effusion: Status: Acute DS: Summary Hospital Course Hospital Course: HP as per admitting provider 26-year-old female with a past medical history of lupus, fibromyalgia, renal insufficiency, tobacco dependence, recent history of COVID-19, hypertension presented to the hospital today with a chief complaint of diffuse body aches and chest pain.?Patient reported that for the past few days she has been having generalized weakness and joint pains.? Also had an episode of chest pain prior to coming to the hospital, sharp in nature, nonradiating, no associated nausea vomiting lightheadedness or dizziness.?Patient does report having headaches.? Denies any blurry vision.? Denies any numbness tingling or focal weakness.?Mentioned that her blood pressure was 218 in the EMS arrived.?Reports her chest pain currently resolved.?Patient reports that she has been having continuous decline bleeding for the past 3 months.? Denies any abdominal pain.? Mentions that after finishing her.? She continued to have spotting but small in quantity.Denies any blood in the stool.?Patient denies any falls or trauma.?Denies any urinary symptoms.?Review of all other systems is negative except mentioned above Left course: Per ER team patient noted to have elevated creatinine on labs; hemoglobin slightly dropped.? Patient was transfused 1 unit of PRBC.? Also noted to have elevated blood pressure.? Troponins elevated but trending down; EKG was nonischemic; patient was chest pain-free.? Admitted to the hospital for further management . KALEIGH Baseline creatinine around 0.8. SLE lupus nephritis on biopsy kidney US -no acute changes Nephrology input appreciated, complement c3, c4(51, 10) and immunofixation pending treat with high-dose steroids for 3 days and mycophenolate, completed? monitor intake and output Follow BMP IVF stopped Prednisone 60 mg as per nephrology Chest pain resolved.? EKG nonischemic, no evidence of pericarditis Troponin-197->172->121. Seen by Cardiology - no evidence of ACS. elevation in cardiac enzymes likely secondary to high blood pressure and kidney disease Echocardiogram did show small to moderate pericardial effusion (no evidence of tamponade) - cardiology recommends repeat echocardiogram next week if patient is still hospitalized otherwise contact Cardiology upon discharge to schedule outpatient repeat Diffuse joint pains? Likely in setting of lupus flare up discussed with Rheumatology,? treated with high-dose steroids (day 3/3) Continue home azathioprine, hydroxychloroquine Treated with Dilaudid and oxycodone prn. Home with a few days of oxycodone Metabolic acidosis. Resolved Secondary to renal dysfunction Acute on chronic anemia acute blood loss r/t menstruation on anemia of chronic disease Patient's baseline hemoglobin is around 9.5.? on presentation was 7.8.? Status post 1 unit of PRBC in the ER. ? Evaluated by dandy tender for dysfunctional uterine bleeding,pelvic ultrasound- no significant abnormalities, TSH wnl plan to change control as outpatient One dose of IV iron per nephrology Iron 30, TIBC 189 Hypertensive urgency. Resolved ? Significantly elevated blood pressure readings continue amlodipine, labetalol and hydralazine titrate blood pressure medications as needed BV Gardnerella + Will start Flagyl twice daily x7 days Tobacco dependence Counseled on smoking cessation. Patient refused nicotine patch. Time Spent with Patient Time attestation: Total time spent providing and/or coordinating discharge services: Discharge coordination time: Greater than 30 minutes Quality: Safe Use of Opioids Does Pt have an Active Cancer Diagnosis on the Problem List?: No Quality: Stroke Does the patient have a stroke diagnosis?: No Physical Exam Vital Signs: Vital Signs: Last Vital Signs Temp 98.0 F 03/26/22 08:15 Pulse 87 03/26/22 08:15 Resp 17 03/26/22 08:15 BP 160/88 H 03/26/22 08:15 Pulse Ox 99 07/12/22 08:15 O2 Del Method 03/26/22 08:15 BMI result Body Mass Index 23.1 Appearing in no acute distress, chronic facial swelling head is normocephalic atraumatic eyes pupils are PERRLA sclera is anicteric mouth throat mucous membranes are intact and moist neck is supple no lymphadenopathy, no JVD noted lung sounds are clear to auscultation heart regular rate rhythm, clear S1, S2 positive bowel sounds, abdomen is soft, nontender neuro patient is alert x3, no focal deficits skin chornic skin changes DS: Data Data Completed and Pending Pending studies at discharge: Pending at discharge 03/21/22 09:24 Surgical Path [Surgical] [PTH] Routine Labs on day of discharge: Laboratory Results - last 24 hr 03/21/22 06:51 Double Strand DNA Ab 81 H Discharge Plan Discharge Anticipated Discharge Date/Time: 03/26/22 08:10 Patient Disposition: Home, Self-Care Discharge Diagnosis: KALEIGH Lupus nephritis chest pain joint pain Referrals: Mitch Childers MD [Physician] - 1 Week Discharge Medications: New mycophenolate mofetil 250 mg Capsule 1,000 mg PO BID Qty: 240 0RF prednisone 20 mg Tablet 60 mg PO DAILY Qty: 90 0RF omeprazole 40 mg Capsule,Delayed Release(Dr/Ec) 40 mg PO BID@0630,1630 Qty: 60 0RF amlodipine 10 mg Tablet 10 mg PO DAILY Qty: 30 0RF Protocol: Hold for SBP< HOLD for SBP < : 90 hydralazine 50 mg Tablet 50 mg PO TID Qty: 90 0RF Protocol: Hold for SBP< HOLD for SBP < : 90 labetalol 100 mg Tablet 100 mg PO TID Qty: 90 0RF Protocol: Hold for SBP/HR < HOLD for SBP < : 90 HOLD for HR < : 60 oxycodone 5 mg Tablet 10 mg PO Q6H PRN (Reason: Pain, Severe (Pain Scale 7-10)) Qty: 24 0RF Continued hydroxychloroquine 200 mg tablet 300 mg PO DAILY ibuprofen 600 mg tablet 600 mg PO Q8H Qty: 30 0RF azathioprine 50 mg tablet 1 tab PO DAILY acetaminophen 500 mg tablet 1 - 2 tab PO QD-TID PRN (Reason: Pain) escitalopram oxalate 10 mg tablet 1 tab PO DAILY Discontinued prednisone 20 mg Tablet 20 mg PO DAILY Qty: 5 0RF Discharge Orders: Discharge Order (Routine); Ordered 03/26/22 Ordered By: Magnolia Garcia Diet: Advance to usual diet Activity on Discharge: As tolerated Stand Alone Forms: Patient Portal Discharge page Care Plan Goals: Complete resolution of symptoms Health Concerns: KALEIGH Lupus nephritis chest pain joint pain Plan of Treatment: Follow-up with primary care provider as needed Follow-up with patent law specialist Take all medications as prescribed Assessment: See discharge summary
[2022-03-26] MEDS: azaTHIOprine 50 MG TABLET PO (08:35)
[2022-03-26] MEDS: predniSONE 20 MG TABLET 60 MG PO (08:35)
[2022-03-26] MEDS: hydrALAZINE HCl 50 MG TABLET PO (08:35)
[2022-03-26] MEDS: amLODIPine Besylate 10 MG TABLET PO (08:35)
[2022-03-26] MEDS: mycophenolate mofetiL 250 MG CAPSULE 1000 MG PO (08:35)
[2022-03-26] MEDS: Escitalopram Oxalate 10 MG TABLET PO (08:36)
[2022-03-26] MEDS: Labetalol HCL 100 MG TABLET PO (08:36)
[2022-03-26] MEDS: Sodium Zirconium Cyclosilicate 5 GM POWD.PACK PO (08:36)
[2022-03-26] MEDS: Hydroxychloroquine Sulfate 200 MG TABLET 300 MG PO (08:45)
[2022-03-26] MEDS: 0.9 % Sodium Chloride Flush 3 ML SYRINGE IVFLUSH (08:46)
--- NOTE | 2022-03-26 11:02 | MHC.CM.PN ---
Patient has been medically cleared for dc to home today, self care.
== END 2022-03-26 11:27 | disposition home or self-care (01) | DRG 346 ==
LOC: HO.ED 16:09 → HO.EDOVER 23:12 → HO.IMC 03-20 19:44
PROVIDERS: Internal Medicine; Internal Medicine Hypertension Specialist; Obstetrics & Gynecology; Physician Assistant Medical; Radiology Diagnostic Radiology; Student in an Organized Health Care Education/Training Program; Admitting Provider Hospitalist; Emergency Provider Emergency Medicine; PCP Student in an Organized Health Care Education/Training Program; Visit Provider Nurse Practitioner Acute Care
PROC: 0TB03ZX Excision of Right Kidney, Percutaneous Approach, Diagnostic (ICD-10-PCS; principal; 2022-03-21 08:30)
DX: M32.14 Glomerular disease in systemic lupus erythematosus (principal); E87.2 Acidosis; I31.3 Pericardial effusion (noninflammatory); N17.9 Acute kidney failure, unspecified; D63.8 Anemia in other chronic diseases classified elsewhere; D62 Acute posthemorrhagic anemia; F17.210 Nicotine dependence, cigarettes, uncomplicated; F32.A Depression, unspecified; N93.8 Other specified abnormal uterine and vaginal bleeding; N76.0 Acute vaginitis; I16.0 Hypertensive urgency; F41.9 Anxiety disorder, unspecified; M79.7 Fibromyalgia; Z86.16 Personal history of COVID-19; Z71.6 Tobacco abuse counseling; Z20.822 Contact with and (suspected) exposure to COVID-19; Z79.3 Long term (current) use of hormonal contraceptives; Z79.899 Other long term (current) drug therapy
CPT/HCPCS: 0241U; 36415; 36430; 50200; 70450; 76775; 76830; 76856; 77012; 80048; 80076; 81001; 81025; 82043; 82550; 83010; 83520; 83540; 83615; 83735; 84165; 84443; 84484; 85025; 85027; 85610; 86021; 86140; 86160; 86225; 86850; 86900; 86901; 86923; 87086; 87480; 87491; 87510; 87591; 87660; 88300; 88305; 88313; 88346; 88348; 88350; 93005; 93306; 96361; 96374; 96375; 99152; 99285; J1170; J1200; J1650; J1756; J1940; J2270; J2405; J2930; P9016

== ENCOUNTER 2022-04-01 15:02 | Inpatient (IN) | payer OTHER, SELFPAY ==
--- NOTE | ~2022-04-01 | XR_ITS ---
EXAMINATION: PORTABLE CHEST 1 VIEW CLINICAL INFORMATION: elevated bnp. le edema . COMPARISON: 12/11/2021. TECHNIQUE: Portable frontal view of the chest was obtained. FINDINGS: The lungs are well expanded. No focal infiltrate, effusion, edema, or pneumothorax. Cardiac and mediastinal silhouettes are within normal limits for technique. No acute bony abnormality seen. XR/XR chest 1V IMPRESSION: No evidence of acute disease.
--- NOTE | ~2022-04-01 | US_ITS ---
EXAMINATION: US VENOUS ULTRASOUND WITH DOPPLER LOWER EXTREMITY, BILATERAL CLINICAL INFORMATION: Lower extremity edema. COMPARISON: None TECHNIQUE: Ultrasound of the deep veins is performed from the hip to the calf with compression sonography and color and pulse Doppler assessment. Spectral analysis with color-flow imaging is performed. FINDINGS: RIGHT: There is normal venous compression and respiratory variation and augmented flow. The visualized common femoral vein, superficial femoral vein, profunda femoral vein, popliteal vein, and the trifurcation region shows no evidence of deep venous thrombosis. Right popliteal cyst measuring 3.4 x 0.9 x 2.0 cm. Thin cortex elongated right inguinal lymph node measuring 2.8 cm in long axis. Mild to moderate subcutaneous edema in the right calf. Probable small suprapatellar joint effusion. LEFT: There is normal venous compression and respiratory variation and augmented flow. The visualized common femoral vein, superficial femoral vein, profunda femoral vein, popliteal vein, and the trifurcation region shows no evidence of deep venous thrombosis. No right popliteal cyst. Reniform left femoral lymph node measuring 0.8 cm in long axis. Mild to moderate subcutaneous edema of the left calf. If the patient's symptoms persist, followup ultrasound in 5 days 7 days might be of value to exclude proximal propagation from a non-visualized calf vein. US/US venous duplex LE BI IMPRESSION: 1. No evidence for deep venous thrombosis in the visualized veins of the bilateral lower extremities. 2. Mild to moderate subcutaneous edema in the calves bilaterally, right greater than left. 3. Small right popliteal cyst and probable small cyst right suprapatellar joint effusion.
[2022-04-01 15:17] VITALS: BP 200/56; PULSE 97; O2SAT 99
[2022-04-01 15:36] VITALS: BP 140/74; PULSE 87; RESP 18; TEMP 36.6; O2SAT 100; BMI 21.9
[2022-04-01 17:55] LABS: Basophils Percent Auto 0.1 % (0-2); Hematocrit 22.8 % (37.0-47.0); Hemoglobin 7.3 g/dl (12.0-16.0); Imm Gran Abs Auto 0.14 X10*3/uL (0.00-0.03); Imm Gran Pct Auto 0.9 % (0.0-0.4); Lymphocytes Absolute Auto 0.3 X10*3/uL (1.2-4.9); MANUAL DIFF FLAG SCAN; Mean Corpuscular Hemoglobin 28.7 pg (27.0-33.0); Mean Corpuscular Volume 89.8 fL (80.0-98.0); Mean Platelet Volume 9.3 fL (9.4-12.3); Monocytes Absolute Auto 0.4 X10*3/uL (0.1-1.2); Monocytes Percent Auto 2.6 % (2-11); Neutrophils Absolute Auto 15.1 x10*3/uL (2.0-8.3); Neutrophils Percent Auto 94.4 % (45-73); Platelet Count 201 X10*3/uL (160-400); Red Blood Count 2.54 X10*6/uL (4.20-5.50); Red Cell Distribution Width 19.3 % (11.0-16.0); SCAN SMEAR FLAG 1
[2022-04-01 18:10] LABS: Alanine Aminotransferase 38 U/L (0-31); Albumin Level 2.7 g/dL (3.5-5.0); Alkaline Phosphatase 53 U/L (39-117); Anion Gap 13 (12-20); Aspartate Amino Transferase 38 U/L (5-31); Bilirubin Total 0.2 mg/dL (0.0-1.0); Blood Urea Nitrogen 73 mg/dL (9-16); Calcium 7.9 mg/dL (8.4-10.2); Carbon Dioxide 20 mmol/L (22-29); Chloride 110 mmol/L (96-108); Creatinine Clr Calc Pharmacy 42.4; Estimated Glomerular Filt Rate 31; Glucose Random 186 mg/dL (60-115); Potassium 5.5 mmol/L (3.3-5.1); Sodium 137 mmol/L (135-145)
[2022-04-01 18:14] LABS: B Type Natriuretic Peptide 1256 pg/mL (<100); SLIDE REVIEW VERIFIED
--- NOTE | 2022-04-01 18:19 | ECG_ITS ---
Test Reason : HYPERKALEMIA Blood Pressure : / mmHG Vent. Rate : 092 BPM Atrial Rate : 092 BPM P-R Int : 126 ms QRS Dur : 088 ms QT Int : 348 ms P-R-T Axes : 073 067 069 degrees QTc Int : 430 ms Normal sinus rhythm Normal ECG When compared with ECG of 19-MAR-2022 15:32, No significant change was found Referred By: Krista Sanford Electronically Signed By:Selvin López
[2022-04-01 19:35] VITALS: BP 148/80; PULSE 99; RESP 20; TEMP 36.6; O2SAT 100
--- NOTE | 2022-04-01 19:41 | ED_ITS ---
HPI - Extremity Problem General Chief complaint: Extremity Problem Stated complaint: swelling lower ext Time Seen by Provider: 04/01/22 16:03 History of Present Illness HPI Narrative: Patient is 26 years old female with past medical history of lupus, fibromyalgia, renal insufficiency, tobacco dependence, recent history of COVID-19 just discharged on 03/26 after admission for acute anemia from uterine bleed and KALEIGH comes back care as she complaining of increased swelling of the leg with blisters now for last few days patient is on prednisone for severe arthritis Related Data Home Medications Medication Instructions Recorded Confirmed hydroxychloroquine 200 mg tablet 300 mg PO DAILY 01/18/21 04/01/22 acetaminophen 500 mg tablet 1 - 2 tab PO QD-TID PRN Pain 03/19/22 04/01/22 azathioprine 50 mg tablet 1 tab PO DAILY 03/19/22 04/01/22 escitalopram oxalate 10 mg tablet 1 tab PO DAILY 03/19/22 04/01/22 torsemide 10 mg tablet 1 tab PO DAILY 04/01/22 04/01/22 Previous Rx's Medication Instructions Recorded ibuprofen 600 mg tablet 600 mg PO Q8H #30 tabs 04/29/21 amlodipine 10 mg tablet 10 mg PO DAILY #30 tabs 03/26/22 hydralazine 50 mg tablet 50 mg PO TID #90 tabs 03/26/22 labetalol 100 mg tablet 100 mg PO TID #90 tabs 03/26/22 mycophenolate mofetil 250 mg 1,000 mg PO BID #240 caps 03/26/22 capsule omeprazole 40 mg capsule,delayed 40 mg PO BID@0630,1630 #60 caps 03/26/22 release oxycodone 5 mg tablet 10 mg PO Q6H PRN Pain, Severe 03/26/22 (Pain Scale 7-10) #24 tabs prednisone 20 mg tablet 60 mg PO DAILY #90 tabs 03/26/22 Allergies Allergy/AdvReac Type Severity Reaction Status Date / Time No Known Allergies Allergy Verified 03/19/22 13:53 Review of Systems Review of Systems: Yes all other systems are reviewed and are negative PMFSH Past Medical History Medical History Anxiety Depression Fibromyalgia Lupus Social History Social History Household Members: Spouse Housing: Apartment Do you presently have visiting nurse or other home services: No Alcohol intake: former Patient Tobacco Use Status: Never used Tobacco Cigarette Packs Per Day: 0.5 Cigarettes Per Day: 10.0 Years Smoked: 7 Substance Use Type: Marijuana Advance Directives: Yes Advance Directives on File: Yes Advance Directives Date on File: 01/18/21 service: No Current occupational status: disabled Physical Exam Vital Signs: Vital Signs: Last Vital Signs Temp 97.8 F 04/02/22 00:32 Pulse 92 04/02/22 00:32 Resp 16 04/02/22 00:32 BP 146/80 H 04/02/22 00:32 Pulse Ox 100 04/02/22 00:32 O2 Del Method 04/02/22 00:32 BMI result Body Mass Index 21.9 Appearance: Alert. Oriented X3. No acute distress. Eyes: PERRLA, No Nystagmus ENT: Pharynx normal. Oral Mucosa moist Neck: Normal inspection. Neck supple. CVS: Normal heart rate and rhythm. Pulses normal. Respiratory: No respiratory distress. Equal air entry bilateral, no wheezing/rales/rhonchi Abdomen: Soft and nontender. Bowel sounds are present, no mass palpable, no CVA tenderness Skin: Skin warm and dry. Normal skin color. Normal skin turgor. Extremities: 3++ lower extremity edema with blisters. No calf tenderness Neuro: Oriented X 3. No motor deficit. MDM - Extremity (Nontraumatic) MDM Narrative Medical decision making narrative: Patient has significant bilateral leg edema etiology not very clear patient does have pericardial effusion but no signs of tamponade no pulsus paradoxus. Patien t bro proBNP is increased will start her on IV diuretics admit for further evaluation Lab Data Attestation: I reviewed the patient's lab results. Result diagrams: 04/01/22 17:48 04/01/22 17:48 Labs: Lab Results 04/01/22 04/01/22 04/01/22 Range/Units 17:48 17:48 17:48 WBC 16.0 H (4.8-10.8) X10*3/uL RBC 2.54 L (4.20-5.50) X10*6/uL Hgb 7.3 L (12.0-16.0) g/dl Hct 22.8 L (37.0-47.0) % MCV 89.8 (80.0-98.0) fL MCH 28.7 (27.0-33.0) pg MCHC 32.0 (31.0-35.0) g/dl RDW 19.3 H (11.0-16.0) % Plt Count 201 (160-400) X10*3/uL MPV 9.3 L (9.4-12.3) fL Immature Gran % (Auto) 0.9 H (0.0-0.4) % Neut % (Auto) 94.4 H (45-73) % Lymph % (Auto) 2.0 L (20-40) % [place] % (Auto) 2.6 (2-11) % Eos % (Auto) 0.0 (0-4) % Baso % (Auto) 0.1 (0-2) % Lymph # (Auto) 0.3 L (1.2-4.9) X10*3/uL [place] # (Auto) 0.4 (0.1-1.2) X10*3/uL Eos # (Auto) 0.0 (0.0-0.4) X10*3/uL Baso # (Auto) 0.0 (0.0-0.2) X10*3/uL Abs Immat Gran (auto) 0.14 H (0.00-0.03) X10*3/uL Absolute Neuts (auto) 15.1 H (2.0-8.3) x10*3/uL Absolute Nucleated RBC 0.000 (0.0-0.012) X10*3/uL Nucleated RBC % (auto) 0.0 (0.0-0.2) /100WBC Smear Tech's Comments VERIFIED D-Dimer High Sensitivty NG/ML Sodium 137 (135-145) mmol/L Potassium 5.5 H (3.3-5.1) mmol/L Chloride 110 H (96-108) mmol/L Carbon Dioxide 20 L (22-29) mmol/L Anion Gap 13 (12-20) BUN 73 H (9-16) mg/dL Creatinine 1.92 H (0.5-1.4) mg/dL Estim Creat Clear Calc 42.4 Estimated GFR 31 Random Glucose 186 H (60-115) mg/dL Calcium 7.9 L (8.4-10.2) mg/dL Total Bilirubin 0.2 (0.0-1.0) mg/dL AST 38 H D (5-31) U/L ALT 38 H (0-31) U/L Alkaline Phosphatase 53 D (39-117) U/L B-Natriuretic Peptide 1256 H (<100) pg/mL Total Protein 5.0 L (6.5-8.0) g/dL Albumin 2.7 L (3.5-5.0) g/dL COVID-19 ([facility]) (Negative) COVID-19 Clin Com 04/01/22 04/01/22 Range/Units 20:05 21:16 WBC (4.8-10.8) X10*3/uL RBC (4.20-5.50) X10*6/uL Hgb (12.0-16.0) g/dl Hct (37.0-47.0) % MCV (80.0-98.0) fL MCH (27.0-33.0) pg MCHC (31.0-35.0) g/dl RDW (11.0-16.0) % Plt Count (160-400) X10*3/uL MPV (9.4-12.3) fL Immature Gran % (Auto) (0.0-0.4) % Neut % (Auto) (45-73) % Lymph % (Auto) (20-40) % [place] % (Auto) (2-11) % Eos % (Auto) (0-4) % Baso % (Auto) (0-2) % Lymph # (Auto) (1.2-4.9) X10*3/uL [place] # (Auto) (0.1-1.2) X10*3/uL Eos # (Auto) (0.0-0.4) X10*3/uL Baso # (Auto) (0.0-0.2) X10*3/uL Abs Immat Gran (auto) (0.00-0.03) X10*3/uL Absolute Neuts (auto) (2.0-8.3) x10*3/uL Absolute Nucleated RBC (0.0-0.012) X10*3/uL Nucleated RBC % (auto) (0.0-0.2) /100WBC Smear Tech's Comments D-Dimer High Sensitivty 1047 NG/ML Sodium (135-145) mmol/L Potassium (3.3-5.1) mmol/L Chloride (96-108) mmol/L Carbon Dioxide (22-29) mmol/L Anion Gap (12-20) BUN (9-16) mg/dL Creatinine (0.5-1.4) mg/dL Estim Creat Clear Calc Estimated GFR Random Glucose (60-115) mg/dL Calcium (8.4-10.2) mg/dL Total Bilirubin (0.0-1.0) mg/dL AST (5-31) U/L ALT (0-31) U/L Alkaline Phosphatase (39-117) U/L B-Natriuretic Peptide (<100) pg/mL Total Protein (6.5-8.0) g/dL Albumin (3.5-5.0) g/dL COVID-19 ([facility]) Negative (Negative) COVID-19 Clin Com See Note ECG Data Attestation EKG: I personally reviewed and interpreted this ECG as follows: Interpretation: Normal sinus rhythm heart rate 92 beats per minute normal intervals no acute distress no acute ischemia Discharge Plan Discharge Clinical Impression: Lower extremity edema, Congestive heart failure Patient Disposition: Admitted As Inpatient
[2022-04-01] MEDS: Morphine Sulfate 4 MG/ML CARTRIDGE IVPUSH ×2 (20:06→23:01)
[2022-04-01] MEDS: ondansetron HCL 4 MG/2 ML VIAL IVPUSH (20:06)
[2022-04-01] MEDS: LORazepam 1 MG TABLET 2 MG PO (20:07)
[2022-04-01] MEDS: Furosemide 40 MG/4 ML VIAL IVPUSH (20:07)
[2022-04-01 20:21] LABS: D Dimer High Sensitivity 1047 NG/ML
--- NOTE | 2022-04-01 21:27 | PHA.MEDREC ---
med rec complete, no issues Pharmacy Consult ? Medication Reconciliation Pharmacy has completed the medication reconciliation.
[2022-04-01 21:36] LABS: COVID-19 Test Negative (Negative)
[2022-04-01 22:15] VITALS: BP 163/81; PULSE 81; RESP 16; O2SAT 100
--- NOTE | 2022-04-01 23:50 | PM.IMHP ---
History of Present Illness Date of Service: 04/01/22 Chief Complaint: Leg swelling 26-year-old female with a past medical history of hypertension, fibromyalgia, lupus, anemia, tobacco dependence, history of COVID-19 infection, chronic kidney disease, recently discharged on hospital on 03/26/2022 after being treated for lupus nephritis/ Pericardial effusion- sent home on prednisone; presented to the hospital today with a chief complaint of bilateral leg swelling. Patient reported that she was given torsemide 10 mg daily for bilateral leg swelling. for the past few days she has been having increased pain, tenderness or are bilateral legs; also complains of subjective fevers. Patient reports that she has been taking hydroxychloroquine, mycophenolate, prednisone for her lupus. Reports that she has blisters on the bilateral legs, and they have popped up with liquid draining, causing increased pain which is limiting her ambulation. Patient also reports that she has been having shortness of breath especially on exertion. Denies any urinary symptoms. Denies any nausea vomiting or diarrhea. Patient denies any falls or trauma. review of all other systems is negative except mentioned above ER course: Per ER team patient noted a bilateral leg swelling; venous duplex was negative; creatinine at baseline of 1.9. Admitted for further management. COUNT INCLUDES THE [facility] Medical History (Updated 04/12/22 @ 00:03 by Chelle Kim) Abnormal uterine bleeding Acute on chronic anemia Anemia Anxiety Depression Essential hypertension Fibromyalgia Hypertensive urgency Lupus Lupus Lupus nephritis Pericardial effusion Rash Pertinent family history: grandmother has lupus Social History Household Members: Family Housing: Apartment Do you presently have visiting nurse or other home services: No Alcohol intake: former Patient Tobacco Use Status: Never used Tobacco Cigarette Packs Per Day: 0.5 Cigarettes Per Day: 10.0 Years Smoked: 7 Substance Use Type: Marijuana Advance Directives Date on File: 04/03/22 service: No Current occupational status: disabled Meds Allergies Allergy/AdvReac Type Severity Reaction Status Date / Time No Known Allergies Allergy Verified 03/19/22 13:53 Active Medications: Current Medications Acetaminophen (Acetaminophen 325 Mg Tablet) 650 mg PO Q6H PRN PRN Reason: Pain, Mild (Pain Scale 1-3) Amlodipine Besylate (Amlodipine Besylate 10 Mg Tablet) 10 mg PO DAILY GERARDO; Protocol Azathioprine (Azathioprine 50 Mg Tablet) 50 mg PO DAILY REPLACED BY [facility] Enoxaparin Sodium (Enoxaparin Sodium 40 Mg/0.4 Ml Syringe) 40 mg SUBCUT Q24H REPLACED BY [facility] Escitalopram Oxalate (Escitalopram Oxalate 10 Mg Tablet) 10 mg PO DAILY REPLACED BY [facility] Hydralazine HCl (Hydralazine Hcl 50 Mg Tablet) 50 mg PO TID GERARDO; Protocol Hydroxychloroquine Sulfate (Hydroxychloroquine Sulfate 200 Mg Tablet) 300 mg PO DAILY REPLACED BY [facility] Labetalol HCl (Labetalol Hcl 100 Mg Tablet) 100 mg PO TID GERARDO; Protocol Melatonin (Melatonin 3 Mg Tablet) 6 mg PO BEDTIME PRN PRN Reason: Insomnia Mycophenolate Mofetil (Mycophenolate Mofetil 250 Mg Capsule) 1,000 mg PO BID REPLACED BY [facility] Omeprazole (Omeprazole 40 Mg Capsule.Dr) 40 mg PO BID@0630,1630 REPLACED BY [facility] Oxycodone HCl (Oxycodone Hcl Immed Release 5 Mg Tablet) 10 mg PO Q6H PRN PRN Reason: Pain, Severe (Pain Scale 7-10) Senna (Sennosides 8.6 Mg Tablet) 17.2 mg PO BEDTIME PRN PRN Reason: Constipation Sodium Chloride (0.9 % Sodium Chloride Flush 3 Ml Syringe) 3 ml IVFLUSH QSHIFT REPLACED BY [facility] Home Medications Medication Instructions Recorded Confirmed Last Taken Type hydroxychloroquine 200 mg tablet 300 mg PO DAILY 01/18/21 04/01/22 04/01/22 History acetaminophen 500 mg tablet 1 - 2 tab PO QD-TID PRN Pain 03/19/22 04/01/22 Unknown History azathioprine 50 mg tablet 1 tab PO DAILY 03/19/22 04/01/22 04/01/22 History escitalopram oxalate 10 mg tablet 1 tab PO DAILY 03/19/22 04/01/22 04/01/22 History Physical Exam Vital Signs and Narrative: Vital Signs: Last Vital Signs Temp 97.9 F 04/01/22 19:35 Pulse 81 04/01/22 22:15 Resp 16 04/01/22 22:15 BP 163/81 H 04/01/22 22:15 Pulse Ox 100 04/01/22 22:15 O2 Del Method 04/01/22 22:15 BMI result Body Mass Index 21.9 Gen: Appears be in no acute distress HEENT: NCAT, Moist mucosa. Pulmonary: Vesicular breath sounds, fair air entry CVS: Normal S1-S2 Abdomen: BS+, Soft, Nontender Extremities: Warm well perfused; noted to have bilateral leg swelling, warm, tender, blisters with serous liquid ; 3+ pitting edema Neuro: Alert and awake. grossly nonfocal Results Labs CBC and Chem 7: 04/03/22 06:01 04/04/22 05:41 Labs: Laboratory Results - last 24 hr 04/01/22 04/01/22 04/01/22 17:48 17:48 17:48 MCV 89.8 MCH 28.7 MCHC 32.0 RDW 19.3 H Plt Count 201 MPV 9.3 L Immature Gran % (Auto) 0.9 H Neut % (Auto) 94.4 H Lymph % (Auto) 2.0 L [place] % (Auto) 2.6 Eos % (Auto) 0.0 Baso % (Auto) 0.1 Lymph # (Auto) 0.3 L [place] # (Auto) 0.4 Eos # (Auto) 0.0 Baso # (Auto) 0.0 Abs Immat Gran (auto) 0.14 H Absolute Neuts (auto) 15.1 H Absolute Nucleated RBC 0.000 Nucleated RBC % (auto) 0.0 Smear Tech's Comments VERIFIED D-Dimer High Sensitivty Anion Gap 13 Estim Creat Clear Calc 42.4 Estimated GFR 31 Random Glucose 186 H Calcium 7.9 L Total Bilirubin 0.2 AST 38 H D ALT 38 H Alkaline Phosphatase 53 D B-Natriuretic Peptide 1256 H Total Protein 5.0 L Albumin 2.7 L COVID-19 ([facility]) COVID-19 Clin Com 04/01/22 04/01/22 20:05 21:16 MCV MCH MCHC RDW Plt Count MPV Immature Gran % (Auto) Neut % (Auto) Lymph % (Auto) [place] % (Auto) Eos % (Auto) Baso % (Auto) Lymph # (Auto) [place] # (Auto) Eos # (Auto) Baso # (Auto) Abs Immat Gran (auto) Absolute Neuts (auto) Absolute Nucleated RBC Nucleated RBC % (auto) Smear Tech's Comments D-Dimer High Sensitivty 1047 Anion Gap Estim Creat Clear Calc Estimated GFR Random Glucose Calcium Total Bilirubin AST ALT Alkaline Phosphatase B-Natriuretic Peptide Total Protein Albumin COVID-19 ([facility]) Negative COVID-19 Clin Com See Note Imaging Radiologist's Impressions: Impressions Chest X-Ray 04/01/22 18:35 IMPRESSION: No evidence of acute disease. Venous Duplex 04/01/22 21:36 IMPRESSION: 1. No evidence for deep venous thrombosis in the visualized veins of the bilateral lower extremities. 2. Mild to moderate subcutaneous edema in the calves bilaterally, right greater than left. 3. Small right popliteal cyst and probable small cyst right suprapatellar joint effusion. Assessment and Plan (1) Rash: Status: Acute Plan 26-year-old female with a past medical history of hypertension, fibromyalgia, lupus, anemia, tobacco dependence, history of COVID-19 infection, chronic kidney disease, recently discharged on hospital on 03/26/2022 after being treated for lupus nephritis/ Pericardial effusion- sent home on prednisone; presented to the hospital today with a chief complaint of bilateral leg swelling/ Pain/blisters. noted to have cellulitis. Admitted for further management. Bilateral leg cellulitis /blister/ulcers: Will give the patient on IV vancomycin and Zosyn. Id consult Venous duplex negative for any infection. Woundl consult Shortness of breath/ dyspnea on exertion/leg swelling: Moderate pericardial effusion: patient has elevated proBNP of 1256 compared to 300 in September. Patient was seen by Cardiology in the last admission. Patient on torsemide 10 mg-increased to 20 mg for now. Repeat echocardiogram Cardiology follow-up Daily weights and I's and O's EKG nonischemic Lupus nephritis: Patient has recent admission for lupus nephritis: Patient was discharged on prednisone 60 mg- will continue Nephrology follow-up Patient is also on mycophenolate, hydroxychloroquine, azathioprine - will continue Anemia: Patient's baseline hemoglobin around 8.5. Febrile at presentation 7.3. Denies any signs of bleeding. Will continue to monitor. Will obtain iron studies, folate B12 History of hypertension: Continue home amlodipine 10 mg, labetalol, hydralazine. History of depression: Continue home escitalopram History of tobacco dependence: Counseled on 4 with saturation History of GERD: Continue home omeprazole DVT prophylaxis: subcu heparin Code status: Full code Quality Stroke Does the patient have a stroke diagnosis?: No VTE Prior VTE?: No VTE Risk Level:: Medical - moderate - high VTE Device Contraindication: Treatment Not Indicated VTE Drug Contraindication: N/A - Med Ordered
[2022-04-02] VITALS (11 sets, daily range): BP systolic 126–172; BP diastolic 63–101; PULSE 92–107; RESP 13–20; TEMP 36.6–37.1; O2SAT 97–100
[2022-04-02] MEDS: Melatonin 3 MG TABLET 6 MG PO (00:26)
[2022-04-02] MEDS: Acetaminophen 325 MG TABLET 650 MG PO (00:26)
[2022-04-02] MEDS: oxyCODONE HCl Immed Release 5 MG TABLET 10 MG PO ×3 (00:27→16:01)
[2022-04-02] MEDS: Enoxaparin Sodium 40 MG/0.4 ML SYRINGE SUBCUT (00:27)
[2022-04-02] MEDS: 0.9 % Sodium Chloride Flush 3 ML SYRINGE IVFLUSH (02:00)
[2022-04-02] MEDS: Piperacillin Sodium/Tazobactam 2.25 GM in 0.9 % Sodium Chloride 50 ML IV ×4 (02:02→21:51)
[2022-04-02] MEDS: vancomycin HCL 1,000 MG in 0.9 % Sodium Chloride 250 ML 270 MG IV (02:03)
[2022-04-02 02:31] LABS: Iron 46 mcg/dL (30-160); Percent Iron Saturation 31 % (15-50); Total Iron Binding Capacity 148 mcg/dL (228-428); Unsaturated Iron Binding 102 ug/dL
[2022-04-02 02:38] LABS: Troponin-I High Sensitivity 81.4 ng/L (<3.5-17.0)
[2022-04-02] MEDS: Omeprazole 40 MG CAPSULE.DR PO ×2 (05:46→16:00)
[2022-04-02] MEDS: HYDROmorphone HCl 0.5 MG/0.5 ML SYRINGE IVPUSH ×3 (05:47→12:19)
--- NOTE | 2022-04-02 07:00 | CA_ITS ---
Transthoracic Echocardiogram Patient (Last, First, Middle): Trye Maharaj, Gender: Female Date of : 1995 Age: 26 Procedure Date: 04/02/2022 Procedure Type: Transthoracic Echocardiogram Location: ER Height: 170.18 cm Weight: 63.5 kg BSA: 1.74 m2 Heart Rate: 97 bpm BP: 167 / 82 mmHg [employer] Assistant Department Head: SB Referring MD: Meek Padilla MD Symptoms: pericardial effusion Study Quality: Technically Difficult/Adequate ECG Rhythm: Sinus Conclusions: - Normal left ventricular cavity size. There is moderately increased left ventricular wall thickness. The left ventricular systolic function is hyperdynamic. The visually estimated ejection fraction is >70%. - Normal right ventricular cavity size and systolic function. - Small to moderate pericardial effusion present. No definitive signs of cardiac tamponade noted. Findings Left Ventricle Normal left ventricular cavity size. There is moderately increased left ventricular wall thickness. The left ventricular systolic function is hyperdynamic. The visually estimated ejection fraction is >70%. Diastolic function is indeterminate on the basis of available data. Right Ventricle Normal right ventricular cavity size and systolic function. Atria The left atrium is mildly dilated. The right atrium is normal in size. Tricuspid Valve Moderately elevated right atrial pressure. Venous The inferior vena cava is dilated and collapses greater than 50% with inspiration. Pericardium/Pleural Small to moderate pericardial effusion present. No definitive signs of cardiac tamponade noted. Prior Study Comparison No significant change compared to prior study dated: 03/20/2022. Measurements 2D Linear Measurements IVSd: 1.44 0.6-0.9/0.6-1.0 cm LVIDd: 4.78 3.9-5.3/4.2-5.9 cm LVIDd Index: 2.75 2.4-3.2/2.2-3.1 cm/m2 LVIDs: 2.69 2.0-3.6 cm LVPWd: 1.27 0.7-1.1 cm LA Diam: 3.20 2.7-3.8/3.0-4.0 cm LAIDs Index: 1.84 1.5-2.3 cm/m2 LV Mass: 323.41 67-162/88-224 g LV Mass Index: 185.87 43-95/49-115 g/m2 Mitral Valve MV Pk E: 1.78 MV PK A: 0.99 MV Decel Time: 180.00 E/A: 1.80 PHT: 53.00 MVA PHT: 4.15 Decel Real: 9.88 Diastolic Function MV Pk E: 1.78 MV Pk A: 0.99 E/A: 1.80 Tricuspid Valve RA Press: 15.00 Updated in Other Vendor System with Status of Final Selvin López MD electronically signed on 04/02/2022 5:34:09 PM with status of Final
[2022-04-02 07:04] LABS: MANUAL DIFF FLAG NO
[2022-04-02 07:14] LABS: Basophils Percent Auto 0.1 % (0-2); Imm Gran Abs Auto 0.14 X10*3/uL (0.00-0.03); Lymphocytes Absolute Auto 1.6 X10*3/uL (1.2-4.9); Lymphocytes Percent Auto 11.3 % (20-40); Mean Corpuscular HGB Conc 32.5 g/dl (31.0-35.0); Mean Corpuscular Hemoglobin 29.1 pg (27.0-33.0); Mean Corpuscular Volume 89.3 fL (80.0-98.0); Mean Platelet Volume 9.3 fL (9.4-12.3); Monocytes Absolute Auto 0.9 X10*3/uL (0.1-1.2); Monocytes Percent Auto 6.2 % (2-11); NRBC Pct Auto 0.1 /100WBC (0.0-0.2); Neutrophils Absolute Auto 11.5 x10*3/uL (2.0-8.3); Neutrophils Percent Auto 81.4 % (45-73); Platelet Count 189 X10*3/uL (160-400); Red Blood Count 2.34 X10*6/uL (4.20-5.50); Red Cell Distribution Width 19.5 % (11.0-16.0); White Blood Count 14.1 X10*3/uL (4.8-10.8)
[2022-04-02 07:20] LABS: Hemoglobin 6.8 g/dl (12.0-16.0)
[2022-04-02 07:21] LABS: Hematocrit 20.9 % (37.0-47.0)
[2022-04-02 07:28] LABS: Anion Gap 10 (12-20); Blood Urea Nitrogen 69 mg/dL (9-16); Calcium 7.8 mg/dL (8.4-10.2); Carbon Dioxide 22 mmol/L (22-29); Chloride 112 mmol/L (96-108); Creatinine Clr Calc Pharmacy 44.5; Estimated Glomerular Filt Rate 33; Glucose Random 88 mg/dL (60-115); Potassium 5.4 mmol/L (3.3-5.1); Sodium 139 mmol/L (135-145)
[2022-04-02 08:09] LABS: Folate 9.8 ng/mL (> or = 4.0); Vitamin B12 277 pg/mL (200-900)
--- NOTE | 2022-04-02 08:40 | PC.NURSE ---
have been in contact with dr olivares for better pain controll
[2022-04-02] MEDS: hydrALAZINE HCl 50 MG TABLET PO ×3 (09:03→21:50)
[2022-04-02] MEDS: Labetalol HCL 100 MG TABLET PO ×3 (09:03→21:50)
[2022-04-02] MEDS: predniSONE 20 MG TABLET 60 MG PO (09:03)
[2022-04-02] MEDS: amLODIPine Besylate 10 MG TABLET PO (09:03)
[2022-04-02] MEDS: Hydroxychloroquine Sulfate 200 MG TABLET 300 MG PO (09:04)
[2022-04-02] MEDS: LORazepam 1 MG TABLET PO (09:05)
[2022-04-02] MEDS: Escitalopram Oxalate 10 MG TABLET PO (09:05)
[2022-04-02] MEDS: Torsemide 20 MG TABLET PO (09:05)
--- NOTE | 2022-04-02 09:23 | PC.NURSE ---
pt continues to scream in pain, medications given provider aware
--- NOTE | 2022-04-02 10:01 | PHA.PROG ---
Admission Date/Time: April 01, 2022 23:39 Indication: Cellulitis Weight in k.503 kg Adjusted body weight in K.4 [place] body weight in K.6 Obesity Dosing Indication % IBW:1.01% Serum Creatinine - Last 168 Hours 04/01/22 04/02/22 17:48 07:00 Creatinine 1.92 H 1.83 H Estimated CrCl and GFR - Last 168 Hours 04/01/22 04/02/22 17:48 07:00 Estim Creat Clear Calc 42.4 44.5 Estimated GFR 31 33 Vancomycin Loading Dose: 1000mg Current Vancomycin Dosing Regimen: 500mg Q12 Vancomycin Monitoring using AUC goal of 400 - 600 range with trough as surrogate marker: 451 mg/L/hr, trough: 15.7 mg/L Date and Time for next Vancomycin Level to be drawn: 04/03 @0900 Pharmacist Comments on Vancomycin Plan: Patient received a loading dose of 1000mg which is about 15mg/kg. Dosing timing was changed to 1100 and 2300 to allow pharmacy to monitor. Patients renal function is not the best for patients age. Reasonable options for dosing was to keep at 1000mg Q24 or do 500mg Q12. Q12 dosing was chosen as it allows for quicker steady state/ trough. Rx insight also shows a greater probability of hitting the proper trough with the 500mg Q12. Plan to collect level and access for efficacy and safety. Vancomycin dosing will take advantage of [facility] [employer] as a clinical decision support tool that uses Bayesian modeling to calculate individual patient's pharmacokinetic parameters and forecast the patient's drug concentration time course with the target goal AUC 24 range of 400 - 600 mg/L/hr.
--- NOTE | 2022-04-02 10:59 | PM.CNCAR ---
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 She is in lot of pain in her legs. Blood pressure has been elevated. She is also anemic with hemoglobin of 6.8. Complaining that she has been short of breath. Denies any chest pain. On last visit we will check an echocardiogram which showed small circumferential pericardial effusion which was at 1st moderate along the right ventricle. She has known lupus and was in the middle of 1 lupus nephritis flare and we felt that that is the likely cause for her pericardial effusion. She also complaining of chills. [facility] Past Medical History Medical History (Updated 04/02/22 @ 17:09 by Selvin López MD) Anxiety Depression Fibromyalgia Lupus Rash Social History Social History Household Members: Spouse Housing: Apartment Do you presently have visiting nurse or other home services: No Alcohol intake: former Patient Tobacco Use Status: Never used Tobacco Cigarette Packs Per Day: 0.5 Cigarettes Per Day: 10.0 Years Smoked: 7 Substance Use Type: Marijuana Advance Directives: Yes Advance Directives on File: Yes Advance Directives Date on File: 01/18/21 service: No Current occupational status: disabled Meds Allergies Allergy/AdvReac Type Severity Reaction Status Date / Time No Known Allergies Allergy Verified 03/19/22 13:53 Active Medications: Current Medications Acetaminophen (Acetaminophen 325 Mg Tablet) 650 mg PO Q6H PRN PRN Reason: Pain, Mild (Pain Scale 1-3) Last Admin: 04/02/22 00:26 Dose: 650 mg Amlodipine Besylate (Amlodipine Besylate 10 Mg Tablet) 10 mg PO DAILY [facility]; Protocol Last Admin: 04/02/22 09:03 Dose: 10 mg Azathioprine (Azathioprine 50 Mg Tablet) 50 mg PO DAILY [facility] Capsaicin (Capsaicin 0.025% Cream 60 Gm Tube) 1 appl TOPICAL TID PRN; Protocol PRN Reason: Pain, Mild (Pain Scale 1-3) Enoxaparin Sodium (Enoxaparin Sodium 40 Mg/0.4 Ml Syringe) 40 mg SUBCUT Q24H [facility] Last Admin: 04/02/22 00:27 Dose: 40 mg Escitalopram Oxalate (Escitalopram Oxalate 10 Mg Tablet) 10 mg PO DAILY [facility] Last Admin: 04/02/22 09:05 Dose: 10 mg Hydralazine HCl (Hydralazine Hcl 50 Mg Tablet) 50 mg PO TID [facility]; Protocol Last Admin: 04/02/22 09:03 Dose: 50 mg Hydromorphone HCl (Hydromorphone Hcl 1 Mg/Ml Syringe) 1 mg IVPUSH Q4H PRN; Protocol PRN Reason: Breakthrough Pain Hydroxychloroquine Sulfate (Hydroxychloroquine Sulfate 200 Mg Tablet) 300 mg PO DAILY [facility] Last Admin: 04/02/22 09:04 Dose: 300 mg Piperacillin Sod/Tazobactam (Sod 2.25 gm/ Sodium Chloride) 50 mls @ 100 mls/hr IV Q6H [facility] Last Infusion: 04/02/22 02:51 Dose: Infused Vancomycin HCl 500 mg/ Sodium (Chloride) 110 mls @ 110 mls/hr IV Q12H [facility] Labetalol HCl (Labetalol Hcl 100 Mg Tablet) 100 mg PO TID [facility]; Protocol Last Admin: 04/02/22 09:03 Dose: 100 mg Melatonin (Melatonin 3 Mg Tablet) 6 mg PO BEDTIME PRN PRN Reason: Insomnia Last Admin: 04/02/22 00:26 Dose: 6 mg Mycophenolate Mofetil (Mycophenolate Mofetil 250 Mg Capsule) 1,000 mg PO BID [facility] Omeprazole (Omeprazole 40 Mg Capsule.Dr) 40 mg PO BID@0630,1630 [facility] Last Admin: 04/02/22 05:46 Dose: 40 mg Oxycodone HCl (Oxycodone Hcl Immed Release 5 Mg Tablet) 10 mg PO Q6H PRN PRN Reason: Pain, Severe (Pain Scale 7-10) Last Admin: 04/02/22 06:30 Dose: 10 mg Pharmacy Consult (Consult Rx Vancomycin Dosing) 1 each MISCELLANE DAILY PRN PRN Reason: Consult order Prednisone (Prednisone 20 Mg Tablet) 60 mg PO DAILY [facility] Last Admin: 04/02/22 09:03 Dose: 60 mg Senna (Sennosides 8.6 Mg Tablet) 17.2 mg PO BEDTIME PRN PRN Reason: Constipation Sodium Chloride (0.9 % Sodium Chloride Flush 3 Ml Syringe) 3 ml IVFLUSH QSHIFT [facility] Last Admin: 04/02/22 09:24 Dose: Not Given Torsemide (Torsemide 20 Mg Tablet) 20 mg PO DAILY [facility]; Protocol Last Admin: 04/02/22 09:05 Dose: 20 mg Home Medications Medication Instructions Recorded Confirmed Last Taken Type hydroxychloroquine 200 mg tablet 300 mg PO DAILY 01/18/21 04/01/22 04/01/22 History acetaminophen 500 mg tablet 1 - 2 tab PO QD-TID PRN Pain 03/19/22 04/01/22 Unknown History azathioprine 50 mg tablet 1 tab PO DAILY 03/19/22 04/01/22 04/01/22 History escitalopram oxalate 10 mg tablet 1 tab PO DAILY 03/19/22 04/01/22 04/01/22 History torsemide 10 mg tablet 1 tab PO DAILY 04/01/22 04/01/22 04/01/22 History Physical Exam Vital Signs: Vital Signs: Last Vital Signs Temp 97.8 F 04/02/22 07:44 Pulse 96 04/02/22 07:44 Resp 19 04/02/22 07:44 BP 162/101 H 04/02/22 07:44 Pulse Ox 100 04/02/22 07:44 O2 Del Method 04/02/22 07:44 BMI result Body Mass Index 21.9 GENERAL APPEARANCE: Distressed and crying due to leg pain. Having chills. NECK: no carotid bruit, no significant jugular venous distention. SKIN: Bilateral dressed wounds on legs. HEART: no murmurs, regular rate and rhythm. LUNGS: clear to auscultation bilaterally. ABDOMEN: soft, nontender. EXTREMITIES: Two to 3+ peripheral edema. PERIPHERAL PULSES: equal. NEUROLOGIC: No gross deficits, AAO X 3 Objective Labs and Meds Result diagrams: 04/02/22 07:00 04/02/22 07:00 Lab results: Laboratory Results - last 24 hr 04/01/22 04/01/22 04/01/22 17:48 17:48 17:48 WBC 16.0 H RBC 2.54 L Hgb 7.3 L Hct 22.8 L MCV 89.8 MCH 28.7 MCHC 32.0 RDW 19.3 H Plt Count 201 MPV 9.3 L Immature Gran % (Auto) 0.9 H Neut % (Auto) 94.4 H Lymph % (Auto) 2.0 L [place] % (Auto) 2.6 Eos % (Auto) 0.0 Baso % (Auto) 0.1 Lymph # (Auto) 0.3 L [place] # (Auto) 0.4 Eos # (Auto) 0.0 Baso # (Auto) 0.0 Abs Immat Gran (auto) 0.14 H Absolute Neuts (auto) 15.1 H Absolute Nucleated RBC 0.000 Nucleated RBC % (auto) 0.0 Smear Tech's Comments VERIFIED Smear Path Review D-Dimer High Sensitivty Sodium 137 Potassium 5.5 H Chloride 110 H Carbon Dioxide 20 L Anion Gap 13 BUN 73 H Creatinine 1.92 H Estim Creat Clear Calc 42.4 Estimated GFR 31 Random Glucose 186 H Calcium 7.9 L Iron TIBC % Saturation Unsat Iron Binding Total Bilirubin 0.2 AST 38 H D ALT 38 H Alkaline Phosphatase 53 D Troponin I High Sens B-Natriuretic Peptide 1256 H Total Protein 5.0 L Albumin 2.7 L Vitamin B12 Folate COVID-19 (VERA) [email or web address] Com Blood Type Antibody Screen Crossmatch 04/01/22 04/01/22 04/02/22 20:05 21:16 01:55 WBC RBC Hgb Hct MCV MCH MCHC RDW Plt Count MPV Immature Gran % (Auto) Neut % (Auto) Lymph % (Auto) [place] % (Auto) Eos % (Auto) Baso % (Auto) Lymph # (Auto) [place] # (Auto) Eos # (Auto) Baso # (Auto) Abs Immat Gran (auto) Absolute Neuts (auto) Absolute Nucleated RBC Nucleated RBC % (auto) Smear Tech's Comments Smear Path Review D-Dimer High Sensitivty 1047 Sodium Potassium Chloride Carbon Dioxide Anion Gap BUN Creatinine Estim Creat Clear Calc Estimated GFR Random Glucose Calcium Iron TIBC % Saturation Unsat Iron Binding Total Bilirubin AST ALT Alkaline Phosphatase Troponin I High Sens 81.4 H* B-Natriuretic Peptide Total Protein Albumin Vitamin B12 Folate COVID-19 (VERA) Negative COVID-KILTR See Note Blood Type Antibody Screen Crossmatch 04/02/22 04/02/22 04/02/22 01:55 07:00 07:00 WBC 14.1 H RBC 2.34 L Hgb 6.8 L* Hct 20.9 L* MCV 89.3 MCH 29.1 MCHC 32.5 RDW 19.5 H Plt Count 189 MPV 9.3 L Immature Gran % (Auto) 1.0 H Neut % (Auto) 81.4 H Lymph % (Auto) 11.3 L [place] % (Auto) 6.2 Eos % (Auto) 0.0 Baso % (Auto) 0.1 Lymph # (Auto) 1.6 [place] # (Auto) 0.9 Eos # (Auto) 0.0 Baso # (Auto) 0.0 Abs Immat Gran (auto) 0.14 H Absolute Neuts (auto) 11.5 H Absolute Nucleated RBC 0.020 H Nucleated RBC % (auto) 0.1 Smear Tech's Comments Smear Path Review SEE NOTE D-Dimer High Sensitivty Sodium 139 Potassium 5.4 H Chloride 112 H Carbon Dioxide 22 Anion Gap 10 L BUN 69 H Creatinine 1.83 H Estim Creat Clear Calc 44.5 Estimated GFR 33 Random Glucose 88 Calcium 7.8 L Iron 46 TIBC 148 L % Saturation 31 Unsat Iron Binding 102 Total Bilirubin AST ALT Alkaline Phosphatase Troponin I High Sens B-Natriuretic Peptide Total Protein Albumin Vitamin B12 Folate COVID-19 (VERA) COVID-KILTR Blood Type Antibody Screen Crossmatch 04/02/22 04/02/22 07:00 09:31 WBC RBC Hgb Hct MCV MCH MCHC RDW Plt Count MPV Immature Gran % (Auto) Neut % (Auto) Lymph % (Auto) [place] % (Auto) Eos % (Auto) Baso % (Auto) Lymph # (Auto) [place] # (Auto) Eos # (Auto) Baso # (Auto) Abs Immat Gran (auto) Absolute Neuts (auto) Absolute Nucleated RBC Nucleated RBC % (auto) Smear Tech's Comments Smear Path Review D-Dimer High Sensitivty Sodium Potassium Chloride Carbon Dioxide Anion Gap BUN Creatinine Estim Creat Clear Calc Estimated GFR Random Glucose Calcium Iron TIBC % Saturation Unsat Iron Binding Total Bilirubin AST ALT Alkaline Phosphatase Troponin I High Sens B-Natriuretic Peptide Total Protein Albumin Vitamin B12 277 Folate 9.8 COVID-19 (VERA) COVIDPhytel Blood Type A Positive Antibody Screen NEGATIVE Crossmatch See Detail Imaging Radiologist's impression: Impressions Chest X-Ray 04/01/22 18:35 IMPRESSION: No evidence of acute disease. Venous Duplex 07/18/22 21:36 IMPRESSION: 1. No evidence for deep venous thrombosis in the visualized veins of the bilateral lower extremities. 2. Mild to moderate subcutaneous edema in the calves bilaterally, right greater than left. 3. Small right popliteal cyst and probable small cyst right suprapatellar joint effusion. Assessment and Plan (1) Essential hypertension: Status: Acute (2) Lower extremity edema: Status: Acute (3) Shortness of breath: Status: Acute Plan 26-year-old female with recent admission with lupus nephritis on immunomodulating drugs who is presenting with lower extremity edema and blisters. Definitely whole body volume overloaded. Difficult to say whether this is related to her lupus nephritis or not. Nephrology should weigh in on that. Her shortness of breath is multifactorial. She is quite distressed due to pain in her legs, has uncontrolled hypertension as well as significant anemia. I think she will need blood transfusion. Agree with increasing torsemide and if renal recommends than IV diuretics can be tried to. We will repeat echocardiogram to reassess the pericardial effusion. Currently I think the presentation is related more to her kidney issues and lupus. Blood cultures as she has been having chills. Thank you for allowing me to participate in the care of your patient. Please feel free to contact me if you have any questions. Procedures Date of Service Date of Service: 04/02/22
--- NOTE | 2022-04-02 11:10 | P.PNIM_ITS ---
Subjective Subjective Date of Service: 04/02/22 Interval History: Seen in f/u for multiple issues in patient lupus nephritis, and presenting with blisters on legs, swelling , and found to be signficantly anemic Interval history: she is c/o of lots of pain in the legs .. She has blisters on legs, hemoglobin is below 7. She was recently in the hospital with pericardial effusion ? pericarditis and was discharged with prednisone for lupus nephritis Review of Systems c/o pain in the legs, no sob Physical Exam Vital Signs: Vital Signs: Last Vital Signs Temp 97.8 F 04/02/22 07:44 Pulse 96 04/02/22 07:44 Resp 19 04/02/22 07:44 BP 162/101 H 04/02/22 07:44 Pulse Ox 100 04/02/22 07:44 O2 Del Method 04/02/22 07:44 BMI result Body Mass Index 21.9 Const: Other: General: AO X 3, no acute distress Resp: CTA bilateral CVS: S1,S2,RRR GI: +BS, NT, no distention Skin: has blisters on legs, loot at Dr. Padilla note from 04/01 Neuro: motor grossly intact Psych: appropriate affect Objective Data Active Medications Acetaminophen (Acetaminophen 325 Mg Tablet) 650 mg PO Q6H PRN PRN Reason: Pain, Mild (Pain Scale 1-3) Last Admin: 04/02/22 00:26 Dose: 650 mg Documented By: SHYAM Amlodipine Besylate (Amlodipine Besylate 10 Mg Tablet) 10 mg PO DAILY [facility]; Prot ocol Last Admin: 04/02/22 09:03 Dose: 10 mg Documented By: MERCEDES Azathioprine (Azathioprine 50 Mg Tablet) 50 mg PO DAILY [facility] Capsaicin (Capsaicin 0.025% Cream 60 Gm Tube) 1 appl TOPICAL TID PRN; Protocol PRN Reason: Pain, Mild (Pain Scale 1-3) Enoxaparin Sodium (Enoxaparin Sodium 40 Mg/0.4 Ml Syringe) 40 mg SUBCUT Q24H [facility] Last Admin: 04/02/22 00:27 Dose: 40 mg Documented By: SHYAM Escitalopram Oxalate (Escitalopram Oxalate 10 Mg Tablet) 10 mg PO DAILY [facility] Last Admin: 04/02/22 09:05 Dose: 10 mg Documented By: MERCEDES Hydralazine HCl (Hydralazine Hcl 50 Mg Tablet) 50 mg PO TID [facility]; Protocol Last Admin: 04/02/22 09:03 Dose: 50 mg Documented By: MERCEDES Hydromorphone HCl (Hydromorphone Hcl 1 Mg/Ml Syringe) 1 mg IVPUSH Q4H PRN; Protocol PRN Reason: Breakthrough Pain Hydroxychloroquine Sulfate (Hydroxychloroquine Sulfate 200 Mg Tablet) 300 mg PO DAILY [facility] Last Admin: 04/02/22 09:04 Dose: 300 mg Documented By: MERCEDES Piperacillin Sod/Tazobactam (Sod 2.25 gm/ Sodium Chloride) 50 mls @ 100 mls/hr IV Q6H [facility] Last Infusion: 04/02/22 02:51 Dose: 0 mls/hr Documented By: SHYAM Vancomycin HCl 500 mg/ Sodium (Chloride) 110 mls @ 110 mls/hr IV Q12H [facility] Labetalol HCl (Labetalol Hcl 100 Mg Tablet) 100 mg PO TID [facility]; Protocol Last Admin: 04/02/22 09:03 Dose: 100 mg Documented By: MERCEDES Melatonin (Melatonin 3 Mg Tablet) 6 mg PO BEDTIME PRN PRN Reason: Insomnia Last Admin: 04/02/22 00:26 Dose: 6 mg Documented By: SHYAM Mycophenolate Mofetil (Mycophenolate Mofetil 250 Mg Capsule) 1,000 mg PO BID [facility] Omeprazole (Omeprazole 40 Mg Capsule.Dr) 40 mg PO BID@0630,1630 [facility] Last Admin: 04/02/22 05:46 Dose: 40 mg Documented By: CORINNA Oxycodone HCl (Oxycodone Hcl Immed Release 5 Mg Tablet) 10 mg PO Q6H PRN PRN Reason: Pain, Severe (Pain Scale 7-10) Last Admin: 04/02/22 06:30 Dose: 10 mg Documented By: VENKAT Pharmacy Consult (Consult Rx Vancomycin Dosing) 1 each MISCELLANE DAILY PRN PRN Reason: Consult order Prednisone (Prednisone 20 Mg Tablet) 60 mg PO DAILY [facility] Last Admin: 04/02/22 09:03 Dose: 60 mg Documented By: MERCEDES Senna (Sennosides 8.6 Mg Tablet) 17.2 mg PO BEDTIME PRN PRN Reason: Constipation Sodium Chloride (0.9 % Sodium Chloride Flush 3 Ml Syringe) 3 ml IVFLUSH QSHIFT [facility] Last Admin: 04/02/22 09:24 Dose: Not Given Documented By: CAYDEN Non-Admin Reason: IV Running Torsemide (Torsemide 20 Mg Tablet) 20 mg PO DAILY [facility]; Protocol Last Admin: 04/02/22 09:05 Dose: 20 mg Documented By: MERCEDES Labs CBC & Chem 7: 04/02/22 07:00 04/02/22 07:00 Labs: Laboratory Results - last 24 hr 04/01/22 04/01/22 04/01/22 17:48 17:48 17:48 MCV 89.8 MCH 28.7 MCHC 32.0 RDW 19.3 H Plt Count 201 MPV 9.3 L Immature Gran % (Auto) 0.9 H Neut % (Auto) 94.4 H Lymph % (Auto) 2.0 L [place] % (Auto) 2.6 Eos % (Auto) 0.0 Baso % (Auto) 0.1 Lymph # (Auto) 0.3 L [place] # (Auto) 0.4 Eos # (Auto) 0.0 Baso # (Auto) 0.0 Abs Immat Gran (auto) 0.14 H Absolute Neuts (auto) 15.1 H Absolute Nucleated RBC 0.000 Nucleated RBC % (auto) 0.0 Smear Tech's Comments VERIFIED Smear Path Review D-Dimer High Sensitivty Anion Gap 13 Estim Creat Clear Calc 42.4 Estimated GFR 31 Random Glucose 186 H Calcium 7.9 L Iron TIBC % Saturation Unsat Iron Binding Total Bilirubin 0.2 AST 38 H D ALT 38 H Alkaline Phosphatase 53 D Troponin I High Sens B-Natriuretic Peptide 1256 H Total Protein 5.0 L Albumin 2.7 L Vitamin B12 Folate COVID-19 ([facility]) COVID-19 Clin Com Blood Type Antibody Screen Crossmatch 04/01/22 04/01/22 04/02/22 20:05 21:16 01:55 MCV MCH MCHC RDW Plt Count MPV Immature Gran % (Auto) Neut % (Auto) Lymph % (Auto) [place] % (Auto) Eos % (Auto) Baso % (Auto) Lymph # (Auto) [place] # (Auto) Eos # (Auto) Baso # (Auto) Abs Immat Gran (auto) Absolute Neuts (auto) Absolute Nucleated RBC Nucleated RBC % (auto) Smear Tech's Comments Smear Path Review D-Dimer High Sensitivty 1047 Anion Gap Estim Creat Clear Calc Estimated GFR Random Glucose Calcium Iron TIBC % Saturation Unsat Iron Binding Total Bilirubin AST ALT Alkaline Phosphatase Troponin I High Sens 81.4 H* B-Natriuretic Peptide Total Protein Albumin Vitamin B12 Folate COVID-19 (VERA) Negative COVID-19 Clin Com See Note Blood Type Antibody Screen Crossmatch 04/02/22 04/02/22 04/02/22 01:55 07:00 07:00 MCV 89.3 MCH 29.1 MCHC 32.5 RDW 19.5 H Plt Count 189 MPV 9.3 L Immature Gran % (Auto) 1.0 H Neut % (Auto) 81.4 H Lymph % (Auto) 11.3 L [place] % (Auto) 6.2 Eos % (Auto) 0.0 Baso % (Auto) 0.1 Lymph # (Auto) 1.6 [place] # (Auto) 0.9 Eos # (Auto) 0.0 Baso # (Auto) 0.0 Abs Immat Gran (auto) 0.14 H Absolute Neuts (auto) 11.5 H Absolute Nucleated RBC 0.020 H Nucleated RBC % (auto) 0.1 Smear Tech's Comments Smear Path Review SEE NOTE D-Dimer High Sensitivty Anion Gap 10 L Estim Creat Clear Calc 44.5 Estimated GFR 33 Random Glucose 88 Calcium 7.8 L Iron 46 TIBC 148 L % Saturation 31 Unsat Iron Binding 102 Total Bilirubin AST ALT Alkaline Phosphatase Troponin I High Sens B-Natriuretic Peptide Total Protein Albumin Vitamin B12 Folate COVID-19 (VERA) COVID-19 Clin Com Blood Type Antibody Screen Crossmatch 04/02/22 04/02/22 07:00 09:31 MCV MCH MCHC RDW Plt Count MPV Immature Gran % (Auto) Neut % (Auto) Lymph % (Auto) [place] % (Auto) Eos % (Auto) Baso % (Auto) Lymph # (Auto) [place] # (Auto) Eos # (Auto) Baso # (Auto) Abs Immat Gran (auto) Absolute Neuts (auto) Absolute Nucleated RBC Nucleated RBC % (auto) Smear Tech's Comments Smear Path Review D-Dimer High Sensitivty Anion Gap Estim Creat Clear Calc Estimated GFR Random Glucose Calcium Iron TIBC % Saturation Unsat Iron Binding Total Bilirubin AST ALT Alkaline Phosphatase Troponin I High Sens B-Natriuretic Peptide Total Protein Albumin Vitamin B12 277 Folate 9.8 COVID-19 ([facility]) COVID-19 Clin Com Blood Type A Positive Antibody Screen NEGATIVE Crossmatch See Detail Assessment and Plan (1) Lower extremity edema: Status: Acute (2) Congestive heart failure: Status: Acute (3) Pericardial effusion: Status: Acute Plan 26-year-old female with a past medical history of hypertension, fibromyalgia, lupus, anemia,? tobacco dependence, history of COVID-19 infection, chronic kidney disease, recently discharged on hospital on 03/26/2022 after being treated for lupus nephritis/? Pericardial effusion- sent home on prednisone; presented to the hospital today with a chief complaint of bilateral leg swelling/? Pain/blisters.? noted to have cellulitis.? Admitted for further management.? Bilateral leg cellulitis /blister/ulcers and pain: I am not so sure if these are truly celulitis looking at them, see H and P picture At any event she is on Vanco and Zosyn and will wait and see what ID says, cultures are pending. 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 Patient has recent admission for lupus nephritis: Patient was discharged on prednisone 60 mg- will continue Nephrology follow-up Patient is also on mycophenolate, hydroxychloroquine, azathioprine - will continue Hyperkalemia--[place] Anemia of chronic disease, with acute drop, but not acute blood loss:? Patient's baseline hemoglobin around 8.5.? Presently Hgb 6, will transfuse 1 units History of hypertension:? Continue home amlodipine 10 mg, labetalol, hydralazine.? History of depression: Continue home escitalopram History of tobacco dependence:? Counseled on 4 with saturation History of GERD: Continue home omeprazole DVT prophylaxis: ? subcu heparin Code status:? Full code Need for inpatient: Lupus Nephritis, Cellulitis getting IV Abx, heart failure work up Quality Stroke Does the patient have a stroke diagnosis?: No VTE Prior VTE?: No VTE Risk Level:: Medical - moderate - high VTE Device Contraindication: Treatment Not Indicated VTE Drug Contraindication: N/A - Med Ordered
[2022-04-02] MEDS: vancomycin HCL 500 MG in 0.9 % Sodium Chloride 100 ML 110 MG IV (12:19)
[2022-04-02] MEDS: azaTHIOprine 50 MG TABLET PO (12:19)
[2022-04-02] MEDS: mycophenolate mofetiL 250 MG CAPSULE 1000 MG PO ×2 (12:19→21:50)
--- NOTE | 2022-04-02 14:16 | MHC.CM.PN ---
Attempted to meet with patient in regards to discharge planning. Patient currently sleeping. No family present. Will attempt to meet again. Continue to monitor for d/c needs.
--- NOTE | 2022-04-02 15:12 | PC.NURSE ---
PT TOLERATED RBC TRANSFUSION WELL BILATERAL LEG DSG CHANGED
--- NOTE | 2022-04-02 15:40 | P.CNID_ITS ---
History of Present Illness Data of Consult Service Date: 04/02/22 Requesting physician: Gonzalez Sorensen Primary Care Provider: Maco Carver MD [facility] Reason for consult: rash legs She has painful leg ulcers and right heel pain 2-3 days worse and now blistering and swelling in legs. 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 Review of Systems Review of Systems: Yes all other systems are reviewed and are negative [facility] Past Medical History Medical History (Updated 04/02/22 @ 15:43 by Martha Shipman MD) Anxiety Depression Fibromyalgia Lupus Rash Family History Family history: reviewed and not pertinent Social History Social History Household Members: Spouse Housing: Apartment Do you presently have visiting nurse or other home services: No Alcohol intake: former Patient Tobacco Use Status: Never used Tobacco Cigarette Packs Per Day: 0.5 Cigarettes Per Day: 10.0 Years Smoked: 7 Substance Use Type: Marijuana Advance Directives: Yes Advance Directives on File: Yes Advance Directives Date on File: 01/18/21 service: No Current occupational status: disabled Meds Allergies Allergy/AdvReac Type Severity Reaction Status Date / Time No Known Allergies Allergy Verified 03/19/22 13:53 Active Medications: Current Medications Acetaminophen (Acetaminophen 325 Mg Tablet) 650 mg PO Q6H PRN PRN Reason: Pain, Mild (Pain Scale 1-3) Last Admin: 04/02/22 00:26 Dose: 650 mg Amlodipine Besylate (Amlodipine Besylate 10 Mg Tablet) 10 mg PO DAILY [facility]; Protocol Last Admin: 04/02/22 09:03 Dose: 10 mg Azathioprine (Azathioprine 50 Mg Tablet) 50 mg PO DAILY [facility] Last Admin: 04/02/22 12:19 Dose: 50 mg Capsaicin (Capsaicin 0.025% Cream 60 Gm Tube) 1 appl TOPICAL TID PRN; Protocol PRN Reason: Pain, Mild (Pain Scale 1-3) Enoxaparin Sodium (Enoxaparin Sodium 40 Mg/0.4 Ml Syringe) 40 mg SUBCUT Q24H [facility] Last Admin: 04/02/22 00:27 Dose: 40 mg Escitalopram Oxalate (Escitalopram Oxalate 10 Mg Tablet) 10 mg PO DAILY [facility] Last Admin: 04/02/22 09:05 Dose: 10 mg Hydralazine HCl (Hydralazine Hcl 50 Mg Tablet) 50 mg PO TID [facility]; Protocol Last Admin: 04/02/22 09:03 Dose: 50 mg Hydromorphone HCl (Hydromorphone Hcl 1 Mg/Ml Syringe) 1 mg IVPUSH Q4H PRN; Protocol PRN Reason: Breakthrough Pain Hydroxychloroquine Sulfate (Hydroxychloroquine Sulfate 200 Mg Tablet) 300 mg PO DAILY [facility] Last Admin: 04/02/22 09:04 Dose: 300 mg Vancomycin HCl 500 mg/ Sodium (Chloride) 110 mls @ 110 mls/hr IV Q12H [facility] Last Admin: 04/02/22 12:19 Dose: 110 mls/hr Piperacillin Sod/Tazobactam (Sod 2.25 gm/ Sodium Chloride) 50 mls @ 100 mls/hr IV Q6H [facility] Labetalol HCl (Labetalol Hcl 100 Mg Tablet) 100 mg PO TID [facility]; Protocol Last Admin: 04/02/22 09:03 Dose: 100 mg Melatonin (Melatonin 3 Mg Tablet) 6 mg PO BEDTIME PRN PRN Reason: Insomnia Last Admin: 04/02/22 00:26 Dose: 6 mg Mycophenolate Mofetil (Mycophenolate Mofetil 250 Mg Capsule) 1,000 mg PO BID [facility] Last Admin: 04/02/22 12:19 Dose: 1,000 mg Omeprazole (Omeprazole 40 Mg Capsule.Dr) 40 mg PO BID@0630,1630 [facility] Last Admin: 04/02/22 05:46 Dose: 40 mg Oxycodone HCl (Oxycodone Hcl Immed Release 5 Mg Tablet) 10 mg PO Q6H PRN PRN Reason: Pain, Severe (Pain Scale 7-10) Last Admin: 04/02/22 06:30 Dose: 10 mg Pharmacy Consult (Consult Rx Vancomycin Dosing) 1 each MISCELLANE DAILY PRN PRN Reason: Consult order Prednisone (Prednisone 20 Mg Tablet) 60 mg PO DAILY [facility] Last Admin: 04/02/22 09:03 Dose: 60 mg Senna (Sennosides 8.6 Mg Tablet) 17.2 mg PO BEDTIME PRN PRN Reason: Constipation Sodium Chloride (0.9 % Sodium Chloride Flush 3 Ml Syringe) [facility] Last Admin: 04/02/22 09:24 Dose: Not Given Torsemide (Torsemide 20 Mg Tablet) 20 mg PO DAILY [facility]; Protocol Last Admin: 04/02/22 09:05 Dose: 20 mg Home Medications Medication Instructions Recorded Confirmed Last Taken Type hydroxychloroquine 200 mg tablet 300 mg PO DAILY 01/18/21 04/01/22 04/01/22 History acetaminophen 500 mg tablet 1 - 2 tab PO QD-TID PRN Pain 03/19/22 04/01/22 Unknown History azathioprine 50 mg tablet 1 tab PO DAILY 03/19/22 04/01/22 04/01/22 History escitalopram oxalate 10 mg tablet 1 tab PO DAILY 03/19/22 04/01/22 04/01/22 History torsemide 10 mg tablet 1 tab PO DAILY 04/01/22 04/01/22 04/01/22 History Physical Exam Vital Signs: Vital Signs: Last Vital Signs Temp 97.8 F 04/02/22 15:02 Pulse 106 H 04/02/22 15:02 Resp 18 04/02/22 15:02 BP 151/94 H 04/02/22 15:02 Pulse Ox 100 04/02/22 07:44 O2 Del Method 04/02/22 07:44 BMI result Body Mass Index 21.9 Const: General: cooperative HEENT: Head: Yes normal to inspection Face and sinus: Yes normal facial exam Mouth: Normal oral and palatal mucosa present Teeth and gingiva: dentition normal Eyes: General: appearance normal, both eyes and all related structures Pupils: Equal, round and reactive pupils present Resp: Effort & Inspection: normal respiratory effort Cardio: Rate: regular rate Rhythm: regular rhythm GI: Palpation (GI): Soft to palpation and nontender : General: Yes no CVA tenderness Back/Spine/Pelvis: Back: no CVA tenderness Skin: General skin exam: no rashes or lesions noted Neuro: General: moves all extremities Cranial nerves: Yes Equal, round and reactive pupils present Extrem: Other: leg blisters bilaterally,plus 2 leg swelling heel pain right heel Psych: Appearance: grossly normal Results Labs CBC & Chem 7: 04/02/22 07:00 04/02/22 07:00 Labs: Short CBC 04/01/22 04/02/22 Range/Units 17:48 07:00 WBC 16.0 H 14.1 H (4.8-10.8) X10*3/uL Hgb 7.3 L 6.8 L* (12.0-16.0) g/dl Hct 22.8 L 20.9 L* (37.0-47.0) % Plt Count 201 189 (160-400) X10*3/uL BMP 04/01/22 04/02/22 17:48 07:00 Sodium 137 139 Potassium 5.5 H 5.4 H Chloride 110 H 112 H Carbon Dioxide 20 L 22 BUN 73 H 69 H Creatinine 1.92 H 1.83 H Calcium 7.9 L 7.8 L Liver Function 04/01/22 Range/Units 17:48 Total Bilirubin 0.2 (0.0-1.0) mg/dL AST 38 H D (5-31) U/L ALT 38 H (0-31) U/L Alkaline Phosphatase 53 D (39-117) U/L Albumin 2.7 L (3.5-5.0) g/dL Assessment and Plan (1) Lower extremity edema: Status: Acute (2) Lupus: Status: Acute (3) Rash: Status: Acute There is concern over superinfection with staph or strep or herpes simplex or zoster on steroids She has also possible medication effect including swelling legs leaking to lymphatic drainage problems and ulcers Also possible medication side effect steroids,other meds Also possible lupus related rash. Plan Continue Vancomycin and Zosyn but likely stop as improves and if blood culture negative and give po Doxycycline Would add Valtrex renal dose adjusted for now. She doesnt know of any monkeypox risk. Wound Clinic to see Biopsy rash only if not improving
[2022-04-02] MEDS: HYDROmorphone HCl 1 MG/ML SYRINGE IVPUSH ×2 (17:37→21:43)
--- NOTE | 2022-04-02 20:02 | PC.NURSE ---
Pt requested to have left leg bandage changed. Bandage was wet from blister discharge. New non stick padding and leg wrap applied. Pt tolerated well. JERMAINE.
--- NOTE | 2022-04-02 21:10 | MHC.CM.PN ---
CM met with admitted patient with bed assignment pending. A&Ox4. Disabled. Lives with 2 children. Mother is her [employer] 10.75 hours/[employer]. Uses a walker, raised toilet seat. States she needs a shower chair. No Covid vaccinations. Had Covid in 11/2021. Recent admission to [facility] [place]. D/C 03/26-Acute anemia d/t uterine bleeding/ [facility]. Requested HCP changed from her , who no longer lives with her, to her mother. New HCP/mother Barb Canales ([phone]). D/C plan is home with existing services. Family to transport. CM to follow for d/c needs.
--- NOTE | 2022-04-02 21:14 | P.CONNP_ITS ---
History of Present Illness Reason for Consult Consult date: 04/02/22 Reason for consult: CKD, LN management Chief Complaint Chief complaint: Leg swelling, HTN History of Present Illness Narrative: 26-year-old female with a past medical history of hypertension, fibromyalgia, lupus, anemia, tobacco dependence, history of COVID-19 infection, chronic kidney disease (BL S- Cr ~ 1.8-1.9 mg/dL), who presented on 04/01 complaining of increased pain, tenderness of legs bilaterally over last few days. Reports that she has blisters on the bilateral legs, and they have popped up with liquid draining, causing increased pain which is limiting her ambulation. Patient also reports that she has been having shortness of breath especially on exertion. She wlso reports subjective fevers. The patient was recently admitted[place]dis[place] [facility] [place] she underwent renal biopsy on 03/21 and was diagnosed with lupus flare. She was treated for lupus nephritis/ Pericardial effusion with pulse dose steroids x 3 days and then continued on prednisone. She has also been taking hydroxychloroquine and mycophenolate. Patient reported that she was given torsemide 10 mg daily for bilateral leg swelling following her discharge but states her leg edema is improved however legs are riffler tender to palpation. Denies any urinary symptoms. Denies any nausea vomiting or diarrhea. Patient denies any falls or trauma. ROS otherwise negative. In ED venous duplex was negative; creatinine noted to be at BL ~1.9. Review of Systems Constitutional: Reports as per [facility] Past Medical History Medical History (Updated 04/02/22 @ 17:09 by Selvin López MD) Anxiety Depression Fibromyalgia Lupus Rash Family History Family history: reviewed and not pertinent Social History Social History Household Members: Spouse Housing: Apartment Do you presently have visiting nurse or other home services: No Alcohol intake: former Patient Tobacco Use Status: Never used Tobacco Cigarette Packs Per Day: 0.5 Cigarettes Per Day: 10.0 Years Smoked: 7 Substance Use Type: Marijuana Advance Directives: Yes Advance Directives on File: Yes Advance Directives Date on File: 01/18/21 service: No Current occupational status: disabled Meds Allergies Allergy/AdvReac Type Severity Reaction Status Date / Time No Known Allergies Allergy Verified 03/19/22 13:53 Active Medications: Current Medications Acetaminophen (Acetaminophen 325 Mg Tablet) 650 mg PO Q6H PRN PRN Reason: Pain, Mild (Pain Scale 1-3) Last Admin: 04/02/22 00:26 Dose: 650 mg Amlodipine Besylate (Amlodipine Besylate 10 Mg Tablet) 10 mg PO DAILY [facility]; Protocol Last Admin: 04/02/22 09:03 Dose: 10 mg Azathioprine (Azathioprine 50 Mg Tablet) 50 mg PO DAILY [facility] Last Admin: 04/02/22 12:19 Dose: 50 mg Capsaicin (Capsaicin 0.025% Cream 60 Gm Tube) 1 appl TOPICAL TID PRN; Protocol PRN Reason: Pain, Mild (Pain Scale 1-3) Enoxaparin Sodium (Enoxaparin Sodium 40 Mg/0.4 Ml Syringe) 40 mg SUBCUT Q24H [facility] Last Admin: 04/02/22 00:27 Dose: 40 mg Escitalopram Oxalate (Escitalopram Oxalate 10 Mg Tablet) 10 mg PO DAILY [facility] Last Admin: 04/02/22 09:05 Dose: 10 mg Hydralazine HCl (Hydralazine Hcl 50 Mg Tablet) 50 mg PO TID [facility]; Protocol Last Admin: 04/02/22 16:00 Dose: 50 mg Hydromorphone HCl (Hydromorphone Hcl 1 Mg/Ml Syringe) 1 mg IVPUSH Q4H PRN; Protocol PRN Reason: Breakthrough Pain Last Admin: 04/02/22 17:37 Dose: 1 mg Hydroxychloroquine Sulfate (Hydroxychloroquine Sulfate 200 Mg Tablet) 300 mg PO DAILY [facility] Last Admin: 04/02/22 09:04 Dose: 300 mg Vancomycin HCl 500 mg/ Sodium (Chloride) 110 mls @ 110 mls/hr IV Q12H [facility] Last Infusion: 04/02/22 15:52 Dose: Infused Piperacillin Sod/Tazobactam (Sod 2.25 gm/ Sodium Chloride) 50 mls @ 100 mls/hr IV Q6H [facility] Last Infusion: 04/02/22 17:37 Dose: Infused Labetalol HCl (Labetalol Hcl 100 Mg Tablet) 100 mg PO TID [facility]; Protocol Last Admin: 04/02/22 16:00 Dose: 100 mg Melatonin (Melatonin 3 Mg Tablet) 6 mg PO BEDTIME PRN PRN Reason: Insomnia Last Admin: 04/02/22 00:26 Dose: 6 mg Mycophenolate Mofetil (Mycophenolate Mofetil 250 Mg Capsule) 1,000 mg PO BID [facility] Last Admin: 04/02/22 12:19 Dose: 1,000 mg Omeprazole (Omeprazole 40 Mg Capsule.Dr) 40 mg PO BID@0630,1630 [facility] Last Admin: 04/02/22 16:00 Dose: 40 mg Oxycodone HCl (Oxycodone Hcl Immed Release 5 Mg Tablet) 10 mg PO Q6H PRN PRN Reason: Pain, Severe (Pain Scale 7-10) Last Admin: 04/02/22 16:01 Dose: 10 mg Pharmacy Consult (Consult Rx Vancomycin Dosing) 1 each MISCELLANE DAILY PRN PRN Reason: Consult order Prednisone (Prednisone 20 Mg Tablet) 60 mg PO DAILY [facility] Last Admin: 04/02/22 09:03 Dose: 60 mg Senna (Sennosides 8.6 Mg Tablet) 17.2 mg PO BEDTIME PRN PRN Reason: Constipation Sodium Chloride (0.9 % Sodium Chloride Flush 3 Ml Syringe) 3 ml IVFLUSH QSHIFT [facility] Last Admin: 04/02/22 16:25 Dose: Not Given Torsemide (Torsemide 20 Mg Tablet) 20 mg PO DAILY [facility]; Protocol Last Admin: 04/02/22 09:05 Dose: 20 mg Valacyclovir HCl (Valacyclovir Hcl 500 Mg Tablet) 500 mg PO BID [facility] Home Medications Medication Instructions Recorded Confirmed Last Taken Type hydroxychloroquine 200 mg tablet 300 mg PO DAILY 01/18/21 04/01/22 04/01/22 Hist ory acetaminophen 500 mg tablet 1 - 2 tab PO QD-TID PRN Pain 03/19/22 04/01/22 Unknown History azathioprine 50 mg tablet 1 tab PO DAILY 03/19/22 04/01/22 04/01/22 History escitalopram oxalate 10 mg tablet 1 tab PO DAILY 03/19/22 04/01/22 04/01/22 History torsemide 10 mg tablet 1 tab PO DAILY 04/01/22 04/01/22 04/01/22 History Physical Exam Vital Signs: Last Vital Signs Temp 98.4 F 04/02/22 21:04 Pulse 94 04/02/22 21:04 Resp 18 04/02/22 21:04 BP 172/87 H 04/02/22 21:04 Pulse Ox 99 04/02/22 21:04 O2 Del Method 04/02/22 21:04 BMI result Body Mass Index 21.9 Const Other: uncomfortable General: cooperative Orientation/consciousness: patient oriented x3 HEENT Head: Yes normocephalic Neck Neck: Yes no JVD Resp Auscultation: crackles Cardio Jugular venous distension: no JVD Rate: regular rate Rhythm: regular rhythm GI Auscultation: normal bowel sounds Neuro General: patient oriented x3 Extrem Other: 1+ pitting edema LE's bl with bl leg dressing. Tender to palpation L>R noted bl erythema Results Lab Results Result Diagrams: 04/02/22 07:00 04/02/22 07:00 Lab results: Chemistry 04/01/22 04/02/22 17:48 07:00 Sodium 137 139 Potassium 5.5 H 5.4 H Carbon Dioxide 20 L 22 BUN 73 H 69 H Creatinine 1.92 H 1.83 H Calcium 7.9 L 7.8 L Hematology 04/01/22 04/02/22 17:48 07:00 WBC 16.0 H 14.1 H Hgb 7.3 L 6.8 L* Plt Count 201 189 Assessment and Plan (1) Lower extremity edema: Status: Acute (2) Anemia: Status: Acute (3) Lupus: Status: Acute Plan CKD SLE Elevated Troponin HTN Plan #)HTN: BP control. titrate blood pressure medications as needed- consider clonidine for added bp control and/or dc amlodipine and start nifedipine xl 30 mg bid. 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 dc imuran. hold nephrotoxic agents including acei/arb for bp control until S-Cr plateau's she is followed by rheumatology. she was pulsed with high dose steroids 3 days at last admission in early March at time of lupus flare. She was then started on MMF. Imuran was subsequently held. can consider Lukymis as OP for nephrotic picture I have added urine studies and serologies for surveillance of lupus nephritis. #) Anemia: Receiving prbc transfusion at time of my eval earlier which is necessary given her blood cts. WOuld benefit patietn to have iron panel monitored as outpaitent and placed on ANG protocol to avoid repetitive blood transfusions. transfusions wiill place her increased risk for allograft rejection in the future should she require renal tx. Procedures Date of Service Date of Service: 04/02/22
[2022-04-02] MEDS: valACYclovir HCL 500 MG TABLET PO (21:50)
[2022-04-03] VITALS (8 sets, daily range): BP systolic 122–154; BP diastolic 60–86; PULSE 84–105; RESP 16–20; TEMP 36.4–37.1; O2SAT 98–100
[2022-04-03] MEDS: Melatonin 3 MG TABLET 6 MG PO (00:18)
[2022-04-03] MEDS: oxyCODONE HCl Immed Release 5 MG TABLET 10 MG PO ×4 (00:18→20:10)
[2022-04-03] MEDS: vancomycin HCL 500 MG in 0.9 % Sodium Chloride 100 ML 110 MG IV ×3 (00:20→22:07)
[2022-04-03] MEDS: 0.9 % Sodium Chloride Flush 3 ML SYRINGE IVFLUSH ×4 (00:20→20:17)
[2022-04-03] MEDS: Enoxaparin Sodium 40 MG/0.4 ML SYRINGE SUBCUT ×2 (00:21→22:08)
[2022-04-03] MEDS: Piperacillin Sodium/Tazobactam 2.25 GM in 0.9 % Sodium Chloride 50 ML IV ×4 (04:39→22:08)
[2022-04-03] MEDS: HYDROmorphone HCl 1 MG/ML SYRINGE IVPUSH ×4 (04:44→22:09)
[2022-04-03] MEDS: Omeprazole 40 MG CAPSULE.DR PO ×2 (05:20→15:05)
[2022-04-03 06:19] LABS: Hematocrit 22.8 % (37.0-47.0); Hemoglobin 7.6 g/dl (12.0-16.0); Mean Corpuscular HGB Conc 33.3 g/dl (31.0-35.0); Mean Corpuscular Hemoglobin 29.2 pg (27.0-33.0); Mean Corpuscular Volume 87.7 fL (80.0-98.0); Mean Platelet Volume 10.6 fL (9.4-12.3); NRBC Pct Auto 0.1 /100WBC (0.0-0.2); Platelet Count 207 X10*3/uL (160-400); Red Cell Distribution Width 18.2 % (11.0-16.0); White Blood Count 14.4 X10*3/uL (4.8-10.8)
[2022-04-03 06:38] LABS: C Reactive Protein 1.79 mg/dL (< or = 0.50); Uric Acid 9.1 mg/dL (2.4-5.7)
[2022-04-03 06:39] LABS: Anion Gap 11 (12-20); Blood Urea Nitrogen 65 mg/dL (9-16); Calcium 7.9 mg/dL (8.4-10.2); Carbon Dioxide 21 mmol/L (22-29); Chloride 114 mmol/L (96-108); Creatinine Clr Calc Pharmacy 44.7; Estimated Glomerular Filt Rate 33; Glucose Random 102 mg/dL (60-115); Potassium 4.7 mmol/L (3.3-5.1); Sodium 141 mmol/L (135-145)
[2022-04-03 07:03] LABS: Erythrocyte Sedimentation Rate 83 MM/HR (0-20)
[2022-04-03] MEDS: mycophenolate mofetiL 250 MG CAPSULE 1000 MG PO ×2 (08:32→20:10)
[2022-04-03] MEDS: azaTHIOprine 50 MG TABLET PO (08:32)
[2022-04-03] MEDS: Torsemide 20 MG TABLET PO (08:32)
[2022-04-03] MEDS: predniSONE 20 MG TABLET 60 MG PO (08:33)
[2022-04-03] MEDS: Acetaminophen 325 MG TABLET 650 MG PO ×2 (08:34→15:05)
[2022-04-03] MEDS: Labetalol HCL 100 MG TABLET PO ×3 (08:34→20:11)
[2022-04-03] MEDS: amLODIPine Besylate 10 MG TABLET PO (08:34)
[2022-04-03] MEDS: Hydroxychloroquine Sulfate 200 MG TABLET 300 MG PO (08:35)
[2022-04-03] MEDS: Escitalopram Oxalate 10 MG TABLET PO (08:35)
[2022-04-03] MEDS: hydrALAZINE HCl 50 MG TABLET PO ×3 (08:35→20:11)
[2022-04-03] MEDS: valACYclovir HCL 500 MG TABLET PO ×2 (08:35→20:11)
[2022-04-03 11:09] LABS: Vancomycin Trough 16.5 mcg/mL (10.0-20.0)
--- NOTE | 2022-04-03 11:10 | P.PNIM_ITS ---
Subjective Subjective Date of Service: 04/04/22 Interval History: Seen in f/u for multiple issues in patient lupus nephritis, and presenting with blisters on legs, swelling , and found to be signficantly anemic Interval history: she is c/o of lots of pain in the legs .. She has blisters on legs, hemoglobin is below 7. She was recently in the hospital with pericardial effusion ? pericarditis and was discharged with prednisone for lupus nephritis Review of Systems c/o pain in the legs, no sob Physical Exam Vital Signs: Vital Signs: Last Vital Signs Temp 97.9 F 04/03/22 10:50 Pulse 96 04/03/22 10:50 Resp 20 04/03/22 10:50 BP 122/60 04/03/22 10:50 Pulse Ox 99 04/03/22 10:50 O2 Del Method 04/03/22 10:50 BMI result Body Mass Index 21.9 Const: Other: General: AO X 3, no acute distress Resp: CTA bilateral CVS: S1,S2,RRR GI: +BS, NT, no distention Skin: has blisters on legs, loot at Dr. Padilla note from 04/01 Neuro: motor grossly intact Psych: appropriate affect Objective Data Active Medications Acetaminophen (Acetaminophen 325 Mg Tablet) 650 mg PO Q6H PRN PRN Reason: Pain, Mild (Pain Scale 1-3) Last Admin: 04/03/22 08:34 Dose: 650 mg Documented By: CARROLL Amlodipine Besylate (Amlodipine Besylate 10 Mg Tablet) 10 mg PO DAILY [facility]; Pr otocol Last Admin: 04/03/22 08:34 Dose: 10 mg Documented By: CARROLL Azathioprine (Azathioprine 50 Mg Tablet) 50 mg PO DAILY [facility] Last Admin: 04/03/22 08:32 Dose: 50 mg Documented By: CARROLL Capsaicin (Capsaicin 0.025% Cream 60 Gm Tube) 1 appl TOPICAL TID PRN; Protocol PRN Reason: Pain, Mild (Pain Scale 1-3) Enoxaparin Sodium (Enoxaparin Sodium 40 Mg/0.4 Ml Syringe) 40 mg SUBCUT Q24H [facility] Last Admin: 04/03/22 00:21 Dose: 40 mg Documented By: FABRICIO Escitalopram Oxalate (Escitalopram Oxalate 10 Mg Tablet) 10 mg PO DAILY [facility] Last Admin: 04/03/22 08:35 Dose: 10 mg Documented By: CARROLL Hydralazine HCl (Hydralazine Hcl 50 Mg Tablet) 50 mg PO TID [facility]; Protocol Last Admin: 04/03/22 08:35 Dose: 50 mg Documented By: CARROLL Hydromorphone HCl (Hydromorphone Hcl 1 Mg/Ml Syringe) 1 mg IVPUSH Q4H PRN; Protocol PRN Reason: Breakthrough Pain Last Admin: 04/03/22 08:32 Dose: 1 mg Documented By: CARROLL Hydroxychloroquine Sulfate (Hydroxychloroquine Sulfate 200 Mg Tablet) 300 mg PO DAILY [facility] Last Admin: 04/03/22 08:35 Dose: 300 mg Documented By: CARROLL Vancomycin HCl 500 mg/ Sodium (Chloride) 110 mls @ 110 mls/hr IV Q12H [facility] Last Infusion: 04/03/22 01:39 Dose: 0 mls/hr Documented By: FABRICIO Piperacillin Sod/Tazobactam (Sod 2.25 gm/ Sodium Chloride) 50 mls @ 100 mls/hr IV Q6H [facility] Last Infusion: 04/03/22 09:33 Dose: 0 mls/hr Documented By: CARROLL Labetalol HCl (Labetalol Hcl 100 Mg Tablet) 100 mg PO TID [facility]; Protocol Last Admin: 04/03/22 08:34 Dose: 100 mg Documented By: CARROLL Melatonin (Melatonin 3 Mg Tablet) 6 mg PO BEDTIME PRN PRN Reason: Insomnia Last Admin: 04/03/22 00:18 Dose: 6 mg Mycophenolate Mofetil (Mycophenolate Mofetil 250 Mg Capsule) 1,000 mg PO BID [facility] Last Admin: 04/03/22 08:32 Dose: 1,000 mg Documented By: CARROLL Omeprazole (Omeprazole 40 Mg Capsule.Dr) 40 mg PO BID@0630,1630 [facility] Last Admin: 04/03/22 05:20 Dose: 40 mg Documented By: FABRICIO Oxycodone HCl (Oxycodone Hcl Immed Release 5 Mg Tablet) 10 mg PO Q6H PRN PRN Reason: Pain, Severe (Pain Scale 7-10) Last Admin: 04/03/22 08:33 Dose: 10 mg Documented By: CARROLL Pharmacy Consult (Consult Rx Vancomycin Dosing) 1 each MISCELLANE DAILY PRN PRN Reason: Consult order Prednisone (Prednisone 20 Mg Tablet) 60 mg PO DAILY [facility] Last Admin: 04/03/22 08:33 Dose: 60 mg Documented By: CARROLL Senna (Sennosides 8.6 Mg Tablet) 17.2 mg PO BEDTIME PRN PRN Reason: Constipation Sodium Chloride (0.9 % Sodium Chloride Flush 3 Ml Syringe) 3 ml IVFLUSH QSHIFT [facility] Last Admin: 04/03/22 08:42 Dose: 3 ml Documented By: CARROLL Torsemide (Torsemide 20 Mg Tablet) 20 mg PO DAILY [facility]; Protocol Last Admin: 04/03/22 08:32 Dose: 20 mg Documented By: CARROLL Valacyclovir HCl (Valacyclovir Hcl 500 Mg Tablet) 500 mg PO BID [facility] Last Admin: 04/03/22 08:35 Dose: 500 mg Documented By: CARROLL Labs CBC & Chem 7: 04/03/22 06:01 04/04/22 05:41 Labs: Laboratory Results - last 24 hr 04/02/22 04/03/22 04/03/22 09:31 06:01 06:01 MCV 87.7 MCH 29.2 MCHC 33.3 RDW 18.2 H Plt Count 207 MPV 10.6 Absolute Nucleated RBC 0.020 H Nucleated RBC % (auto) 0.1 ESR Anion Gap 11 L Estim Creat Clear Calc 44.7 Estimated GFR 33 Random Glucose 102 Uric Acid Calcium 7.9 L C-Reactive Protein Vancomycin Trough Blood Type A Positive Antibody Screen NEGATIVE Crossmatch See Detail 04/03/22 04/03/22 04/03/22 06:01 06:01 09:11 MCV MCH MCHC RDW Plt Count MPV Absolute Nucleated RBC Nucleated RBC % (auto) ESR 83 H Anion Gap Estim Creat Clear Calc Estimated GFR Random Glucose Uric Acid 9.1 H Calcium C-Reactive Protein 1.79 H Vancomycin Trough 16.5 Blood Type Antibody Screen Crossmatch Assessment and Plan (1) Lower extremity edema: Status: Acute (2) Congestive heart failure: Status: Acute (3) Pericardial effusion: Status: Resolved Plan 26-year-old female with a past medical history of hypertension, fibromyalgia, lupus, anemia,? tobacco dependence, history of COVID-19 infection, chronic kidney disease, recently discharged on hospital on 03/26/2022 after being treated for lupus nephritis/? Pericardial effusion- sent home on prednisone; presented to the hospital today with a chief complaint of bilateral leg swelling/? Pain/blisters.? noted to have cellulitis.? Admitted for further management.? Bilateral leg cellulitis /blister/ulcers and pain: I am not so sure if these are truly celulitis looking at them, see H and P picture At any event she is on Vanco and Zosyn ID recommends continuing until cultures negative, unfortunately cultures were never done before getting Abx -Dilaudid for pain Shortness of breath/ dyspnea on exertion/leg swelling incrase BNP, pericardial effusion -repeat Echo showed smalll to moderate pericardial effusion -continue torsemide -Cardiology to assess her Lupus nephritis:? Patient has recent admission for lupus nephritis: Patient was discharged on prednisone 60 mg- will continue Nephrology follow-up Patient is also on mycophenolate, hydroxychloroquine, azathioprine - will continue Hyperkalemia--Lokelma and resolved Anemia of chronic disease, with acute drop, but not acute blood loss:? Patient's baseline hemoglobin around 8.5.? Presently Hgb 6, will transfuse 1 units History of hypertension:? Continue home amlodipine 10 mg, labetalol, hydralazine.? History of depression: Continue home escitalopram History of tobacco dependence:? cessation discussed History of GERD: Continue home omeprazole DVT prophylaxis: ? subcu heparin Code status:? Full code Need for inpatient: Lupus Nephritis, Cellulitis getting IV Abx, heart failure work up Quality Stroke Does the patient have a stroke diagnosis?: No VTE Prior VTE?: No VTE Risk Level:: Medical - moderate - high VTE Device Contraindication: Treatment Not Indicated VTE Drug Contraindication: N/A - Med Ordered
--- NOTE | 2022-04-03 11:20 | HE.PHANOTE ---
Vancomycin Dosing Addendum Patients level of 04/03/22 @0900 came back at 16.5 mg/L. Renal function seems to be slightly improving. Continue current regimen. Predicted AUC 514 mg/L/hr and trough 17.8 mg/L.
--- NOTE | 2022-04-03 12:21 | P.PNCA_ITS ---
Subjective Subjective Date of Service: 04/03/22 Interval history: Seen and examined at bedside. Still complaining of leg pain. Has been on oral diuretics. Was given blood transfusion. Echocardiography reviewed which showed no change in pericardial effusion and no tamponade physiology. Physical Exam Vital Signs: Last Vital Signs Temp 97.9 F 04/03/22 10:50 Pulse 96 04/03/22 10:50 Resp 20 04/03/22 10:50 BP 122/60 04/03/22 10:50 Pulse Ox 99 04/03/22 10:50 O2 Del Method 04/03/22 10:50 BMI result Body Mass Index 21.9 GENERAL APPEARANCE: Complaining of leg pain. NECK: no carotid bruit, no significant jugular venous distention. SKIN: Bilateral dressed wounds on legs. Edema positive. HEART: no murmurs, regular rate and rhythm. LUNGS: clear to auscultation bilaterally. ABDOMEN: soft, nontender. EXTREMITIES: Positive edema. PERIPHERAL PULSES: equal. NEUROLOGIC: No gross deficits, AAO X 3 Objective Labs and Meds Result diagrams: 04/03/22 06:01 04/03/22 06:01 Lab results: Laboratory Results - last 24 hr 04/02/22 04/03/22 04/03/22 09:31 06:01 06:01 WBC 14.4 H RBC 2.60 L Hgb 7.6 L Hct 22.8 L MCV 87.7 MCH 29.2 MCHC 33.3 RDW 18.2 H Plt Count 207 MPV 10.6 Absolute Nucleated RBC 0.020 H Nucleated RBC % (auto) 0.1 ESR Sodium 141 Potassium 4.7 Chloride 114 H Carbon Dioxide 21 L Anion Gap 11 L BUN 65 H Creatinine 1.82 H Estim Creat Clear Calc 44.7 Estimated GFR 33 Random Glucose 102 Uric Acid Calcium 7.9 L C-Reactive Protein Vancomycin Trough Blood Type A Positive Antibody Screen NEGATIVE Crossmatch See Detail 04/03/22 04/03/22 04/03/22 06:01 06:01 09:11 WBC RBC Hgb Hct MCV MCH MCHC RDW Plt Count MPV Absolute Nucleated RBC Nucleated RBC % (auto) ESR 83 H Sodium Potassium Chloride Carbon Dioxide Anion Gap BUN Creatinine Estim Creat Clear Calc Estimated GFR Random Glucose Uric Acid 9.1 H Calcium C-Reactive Protein 1.79 H Vancomycin Trough 16.5 Blood Type Antibody Screen Crossmatch Progress Note: A&P Assessment and plan (1) Essential hypertension: Status: Acute (2) Shortness of breath: Status: Acute (3) Pericardial effusion: Status: Acute Plan Pleasant 26-year-old female with lupus who was admitted recently with lupus nephritis and significant kidney dysfunction and hypertension. At that time echocardiography showed a small to moderate-sized pericardial effusion without tamponade physiology. She is presenting again with worsening lower extremity edema and shortness of breath. She is anemic and was hypertensive. Blood pressure control is improving. She was given 1 unit of blood. Clinically she i s not in heart failure. Peripheral edema is likely due to underlying kidney dysfunction and potentially proteinuria. Nephrology is already on the case. Pericardial effusion is again [id number] in size and there is no tamponade physiology. She can have repeat ECHO in a month to reassess this. Thank you for allowing me to participate in the care of your patient. Please feel free to contact me if you have any questions. Time Spent With Patient Time: Total time spent is greater than 50% in coordination of care (as documented) at patient's floor/unit and/or counseling patient: Progress Note: Quality Stroke Does the patient have a stroke diagnosis?: No Procedures Date of Service Date of Service: 04/03/22
--- NOTE | 2022-04-03 13:32 | MHC.CM.PN ---
per rounds pt expected to dc in 1 to 2 days plan remains home with resumption of servceis
--- NOTE | 2022-04-03 19:08 | PM.PNNEP ---
Subjective Subjective Date of Service: 04/03/22 Interval history: Chart Reviewed. Events noted. S-Cr consistent with CKD 2/2 LN S-Cr now at BL. Physical Exam Vital Signs: Vital Signs: Last Vital Signs Temp 97.5 F 04/03/22 18:53 Pulse 98 04/03/22 18:53 Resp 18 04/03/22 18:53 BP 146/67 H 04/03/22 18:53 Pulse Ox 98 04/03/22 18:53 O2 Del Method 04/03/22 18:53 BMI result Body Mass Index 21.9 Const: General: no acute distress and awake Orientation/consciousness: patient oriented x3 HEENT: Head: Yes normocephalic and Yes atraumatic Neck: Neck: Yes no JVD Resp: Auscultation: clear to auscultation bilaterally Cardio: Jugular venous distension: no JVD Rate: regular rate Rhythm: regular rhythm Heart sounds: S1 normal heart sound present and S2 normal heart sound present GI: Auscultation: normal bowel sounds Neuro: General: patient oriented x3 Extrem: General: Yes no clubbing, cyanosis or edema Objective Data Labs CBC & Chem 7: 04/03/22 06:01 04/03/22 06:01 Labs: Laboratory Results - last 24 hr 04/03/22 04/03/22 04/03/22 06:01 06:01 06:01 WBC 14.4 H RBC 2.60 L Hgb 7.6 L Hct 22.8 L MCV 87.7 MCH 29.2 MCHC 33.3 RDW 18.2 H Plt Count 207 MPV 10.6 Absolute Nucleated RBC 0.020 H Nucleated RBC % (auto) 0.1 ESR 83 H Sodium 141 Potassium 4.7 Chloride 114 H Carbon Dioxide 21 L Anion Gap 11 L BUN 65 H Creatinine 1.82 H Estim Creat Clear Calc 44.7 Estimated GFR 33 Random Glucose 102 Uric Acid Calcium 7.9 L C-Reactive Protein Vancomycin Trough 04/03/22 04/03/22 06:01 09:11 WBC RBC Hgb Hct MCV MCH MCHC RDW Plt Count MPV Absolute Nucleated RBC Nucleated RBC % (auto) ESR Sodium Potassium Chloride Carbon Dioxide Anion Gap BUN Creatinine Estim Creat Clear Calc Estimated GFR Random Glucose Uric Acid 9.1 H Calcium C-Reactive Protein 1.79 H Vancomycin Trough 16.5 Procedures Date of Service Date of Service: 04/03/22 Assessment & Plan Assessment and plan (1) Lower extremity edema: Status: Acute (2) Lupus: Status: Acute (3) Lupus nephritis: Status: Acute Plan CKD SLE Elevated Troponin HTN Plan #)HTN: BP control. titrate blood pressure medications as needed- consider clonidine for added bp control and/or dc amlodipine and start nifedipine xl 30 mg bid. 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 dc imuran. hold nephrotoxic agents including acei/arb for bp control until S-Cr plateau's she is followed by rheumatology. she was pulsed with high dose steroids 3 days at last admission in early March at time of lupus flare. She was then started on MMF. Imuran was subsequently held. can consider Lukymis as OP for nephrotic picture I have added urine studies and serologies for surveillance of lupus nephritis. #) Anemia: Receiving prbc transfusion at time of my eval earlier which is necessary given her blood cts. WOuld benefit patietn to have iron panel monitored as outpaitent and placed on ANG protocol to avoid repetitive blood transfusions. transfusions wiill place her increased risk for allograft rejection in the future should she require renal tx. Time Spent With Patient Time: Total time spent is greater than 50% in coordination of care (as documented) at patient's floor/unit and/or counseling patient: Progress Note: Quality Stroke Does the patient have a stroke diagnosis?: No
[2022-04-03] MEDS: LORazepam 1 MG TABLET PO (20:11)
[2022-04-04] MEDS: oxyCODONE HCl Immed Release 5 MG TABLET 10 MG PO ×4 (03:02→15:18)
[2022-04-04 03:51] VITALS: BP 159/77; PULSE 114; RESP 16; TEMP 36.7; O2SAT 100
[2022-04-04 04:45] VITALS: RESP 18
[2022-04-04] MEDS: Piperacillin Sodium/Tazobactam 2.25 GM in 0.9 % Sodium Chloride 50 ML IV ×2 (04:45→07:40)
[2022-04-04] MEDS: HYDROmorphone HCl 1 MG/ML SYRINGE IVPUSH (04:45)
[2022-04-04] MEDS: Omeprazole 40 MG CAPSULE.DR PO ×2 (04:47→15:31)
[2022-04-04 06:31] LABS: Estimated Glomerular Filt Rate 34
[2022-04-04 07:29] VITALS: BP 169/84; PULSE 95; RESP 18; TEMP 37; O2SAT 100
[2022-04-04] MEDS: mycophenolate mofetiL 250 MG CAPSULE 1000 MG PO (07:36)
[2022-04-04] MEDS: predniSONE 20 MG TABLET 60 MG PO (07:36)
[2022-04-04] MEDS: azaTHIOprine 50 MG TABLET PO (07:36)
[2022-04-04] MEDS: hydrALAZINE HCl 50 MG TABLET PO ×2 (07:37→15:31)
[2022-04-04] MEDS: Acetaminophen 325 MG TABLET 650 MG PO ×2 (07:37→15:18)
[2022-04-04] MEDS: Hydroxychloroquine Sulfate 200 MG TABLET 300 MG PO (07:37)
[2022-04-04] MEDS: amLODIPine Besylate 10 MG TABLET PO (07:37)
[2022-04-04] MEDS: valACYclovir HCL 500 MG TABLET PO (07:39)
[2022-04-04] MEDS: Labetalol HCL 100 MG TABLET PO ×2 (07:39→15:31)
[2022-04-04] MEDS: Escitalopram Oxalate 10 MG TABLET PO (07:39)
[2022-04-04] MEDS: Torsemide 20 MG TABLET PO (07:39)
[2022-04-04] MEDS: 0.9 % Sodium Chloride Flush 3 ML SYRINGE IVFLUSH ×2 (07:40→15:33)
[2022-04-04 10:41] LABS: Vancomycin Trough 22.2 mcg/mL (10.0-20.0)
--- NOTE | 2022-04-04 10:52 | HE.PHANOTE ---
Vanco addendum Pt's trough came back high at 22.2mg/L on 04/04; pt in CKD so increased interval to Q24H at 750mg. Getting random draw before second dose of 750mg on 04/05/22 @2100.
[2022-04-04 11:36] VITALS: BP 142/82; PULSE 100; RESP 19; TEMP 37.2; O2SAT 100
--- NOTE | 2022-04-04 11:48 | P.DS_ITS ---
DS: Providers Provider Date of Service: 04/04/22 Date of admission: 04/01/22 23:39 Primary care physician: Maco Carver MD Consults: 04/01/22 23:39 Consult to Cardiology Routine Consulting Provider: Selvin López Reason for consultation: CHF; pericardial effusion 04/02/22 01:28 Consult to Infectious Diseases Routine Consulting Provider: Martha Shipman Reason for consultation: b/l leg cellulitis/blister 04/02/22 01:44 Consult to Nephrology Routine Consulting Provider: Luis Coker Reason for consultation: lupus nephritis DS: Diagnosis Discharge Diagnosis (1) Lower extremity edema: Status: Resolved (2) Congestive heart failure: Status: Resolved (3) Pericardial effusion: Status: Resolved DS: Summary Hospital Course Hospital Course: Admission HPI:Chief Complaint: Leg swelling ?26-year-old female with a past medical history of hypertension, fibromyalgia, lupus, anemia,? tobacco dependence, history of COVID-19 infection, chronic kidney disease, recently discharged on hospital on 03/26/2022 after being treated for lupus nephritis/? Pericardial effusion- sent home on prednisone; presented t o the hospital today with a chief complaint of bilateral leg swelling.? Patient reported that she was given torsemide 10 mg daily for bilateral leg swelling. ?for the past few days she has been having increased pain, tenderness or are bilateral legs; also complains of subjective fevers.? Patient reports that she has been taking hydroxychloroquine, mycophenolate, prednisone for her lupus.? Reports that she has blisters on the bilateral legs, and they have popped up with liquid draining, causing increased pain which is limiting her ambulation.? Patient also reports that she has been having shortness of breath especially on exertion.? Denies any urinary symptoms.? Denies any nausea vomiting or diarrhea.? Patient denies any falls or trauma.? ?review of all other systems is negative except mentioned above ER course: Per ER team patient noted a bilateral leg swelling; venous duplex was negative; creatinine at baseline of 1.9.? Admitted for further management. Hospital course Bilateral leg cellulitis /blister/ulcers and pain: There was concern for cellulitis so was started on broad spec Abx with Zosy and Vanco,, Unfortunately there were no cultures drawn, no fever, incrased WBC likely from steroid. She was having lots of pain in the leg and was treated with Dilaudid and oxycodone. She swelling and redness have significantly improved and will be transitioned to oral Doxycycline. Her pain is better, erythema is better. Will refer her to wound clinic on outpatient basis along with home health services Lupus nephritis:? Patient has recent admission for lupus nephritis: Patient was discharged on prednisone 60 mg- will continue but decrease to 40, re nal function is stable, in fact creatinine has improved Patient is also on mycophenolate, hydroxychloroquine, azathioprine - will continue Hyperkalemia--Lokelma after lokelma Anemia of chronic disease, with acute drop, but not acute blood loss:? Patient's baseline hemoglobin around 8.5.? Presently Hgb 6, will transfuse 1 units with improvment History of hypertension:? Continue home amlodipine 10 mg, labetalol, hydralazine.? History of depression: Continue home escitalopram History of tobacco dependence:? Counseled on 4 with saturation History of GERD: Continue home omeprazole Dispo home with [facility]NA Time Spent with Patient Time attestation: Total time spent providing and/or coordinating discharge services: Discharge coordination time: Greater than 30 minutes Quality: Safe Use of Opioids Does Pt have an Active Cancer Diagnosis on the Problem List?: No Quality: Stroke Does the patient have a stroke diagnosis?: No Physical Exam Vital Signs: Vital Signs: Last Vital Signs Temp 98.9 F 04/04/22 11:36 Pulse 100 04/04/22 11:36 Resp 19 04/04/22 11:36 BP 142/82 H 04/04/22 11:36 Pulse Ox 100 04/04/22 11:36 O2 Del Method 04/04/22 11:36 BMI result Body Mass Index 21.9 Const: Other: General: AO X 3, no acute distress Resp: CTA bilateral CVS: S1,S2,RRR GI: +BS, NT, no distention Skin: Neuro: motor grossly intact Psych: appropriate affect DS: Data Data Completed and Pending Labs on day of discharge: Laboratory Results - last 24 hr 04/04/22 04/04/22 05:41 09:11 Creatinine 1.77 H Estim Creat Clear Calc 46.0 Estimated GFR 34 Vancomycin Trough 22.2 H Discharge Plan Discharge Anticipated Discharge Date/Time: 04/04/22 11:42 Patient Disposition: Home Health Service Discharge Diagnosis: Cellulitis of the legs, lupus nephritis and pericardial effusion Referrals: [facility] [Outside] - 1 Week Maco Carver MD [Primary Care Provider] - 1 Week Selvin López MD [Physician] - 2 Weeks Cydney Coto MD [Physician] - 1 Week Discharge Medications: New valacyclovir 500 mg Tablet 500 mg PO BID Qty: 14 0RF torsemide 20 mg Tablet 20 mg PO DAILY Qty: 30 0RF Protocol: Hold for SBP< HOLD for SBP < : 90 oxycodone 10 mg tablet 10 mg PO Q6H PRN (Reason: pain (scale score 7-10)) Qty: 16 0RF Rx Instructions: Partial Fill upon patient request. Continued hydroxychloroquine 200 mg tablet 300 mg PO DAILY ibuprofen 600 mg tablet 600 mg PO Q8H Qty: 30 0RF azathioprine 50 mg tablet 1 tab PO DAILY acetaminophen 500 mg tablet 1 - 2 tab PO QD-TID PRN (Reason: Pain) escitalopram oxalate 10 mg tablet 1 tab PO DAILY mycophenolate mofetil 250 mg Capsule 1,000 mg PO BID Qty: 240 0RF prednisone 20 mg Tablet 60 mg PO DAILY Qty: 90 0RF omeprazole 40 mg Capsule,Delayed Release(Dr/Ec) 40 mg PO BID@0630,1630 Qty: 60 0RF amlodipine 10 mg Tablet 10 mg PO DAILY Qty: 30 0RF Protocol: Hold for SBP< HOLD for SBP < : 90 hydralazine 50 mg Tablet 50 mg PO TID Qty: 90 0RF Protocol: Hold for SBP< HOLD for SBP < : 90 labetalol 100 mg Tablet 100 mg PO TID Qty: 90 0RF Protocol: Hold for SBP/HR < HOLD for SBP < : 90 HOLD for HR < : 60 oxycodone 5 mg Tablet 10 mg PO Q6H PRN (Reason: Pain, Severe (Pain Scale 7-10)) Qty: 24 0RF Discontinued torsemide 10 mg tablet 1 tab PO DAILY Discharge Orders: Discharge Order (Routine); Ordered 04/04/22 Ordered By: Gonzalez Sorensen Diet: Advance to usual diet Activity on Discharge: As tolerated Stand Alone Forms: Patient Portal Discharge page Care Plan Goals: resolutiono f cellulitis and wound of the legs Health Concerns: Lupus nephritis, cellulitis and leg wound Plan of Treatment: take Doxycyline as recommended and follow up with your Doctor in a week Follow up with the kidney doctor xeroform dressing every other day follow up with the wound cliniic Assessment: as above Discharge Date/Time: 04/04/22 16:22
--- NOTE | 2022-04-04 15:48 | MHC.CM.PN ---
PT WILL DC HOME TODAY, HOME HEALTH SERVICES ORDERED REFERRAL MADE TO [facility] AWAITING [facility] TO TRANSPORT
[2022-04-05 19:36] LABS: Complement C3 80 mg/dL (83-193)
[2022-04-09 12:12] LABS: ANA Pattern 2 Nuclear, Homogeneous; ANA Titer 2 1:40 titer; Anti Nuclear Antibody Pattern Nuclear, Speckled; Anti Nuclear Antibody Screen POSITIVE (NEGATIVE)
[2022-04-09 14:17] LABS: ANAchoice Screen POSITIVE (NEGATIVE); ds-DNA 14 IU/mL
== END 2022-04-04 16:22 | disposition home health service (06) | DRG 383 ==
LOC: HO.ED 20:02 → HO.EDOVER 23:44 → HO.IMC 04-02 20:01
PROVIDERS: Internal Medicine Nephrology; Admitting Provider Hospitalist; Emergency Provider Internal Medicine; PCP Family Medicine; Visit Provider Internal Medicine
DX: L03.115 Cellulitis of right lower limb (principal); L03.116 Cellulitis of left lower limb; I31.3 Pericardial effusion (noninflammatory); M32.14 Glomerular disease in systemic lupus erythematosus; D63.1 Anemia in chronic kidney disease; F32.A Depression, unspecified; F41.9 Anxiety disorder, unspecified; K21.9 Gastro-esophageal reflux disease without esophagitis; F17.210 Nicotine dependence, cigarettes, uncomplicated; Z71.6 Tobacco abuse counseling; E87.5 Hyperkalemia; I12.9 Hypertensive chronic kidney disease with stage 1 through stage 4 chronic kidney disease, or unspecified chronic kidney disease; N18.2 Chronic kidney disease, stage 2 (mild); Z20.822 Contact with and (suspected) exposure to COVID-19; Z86.16 Personal history of COVID-19; Z79.3 Long term (current) use of hormonal contraceptives; Z79.52 Long term (current) use of systemic steroids; Z79.899 Other long term (current) drug therapy
CPT/HCPCS: 36415; 71045; 80048; 80053; 80202; 82565; 82607; 82746; 83540; 83880; 84484; 84550; 85025; 85027; 85379; 85652; 86038; 86039; 86140; 86160; 86225; 86850; 86900; 86901; 86923; 87040; 87635; 93005; 93308; 93970; 96374; 96375; 96376; 99285; J1170; J1650; J1940; J2270; J2405; J2543; J3370; P9016

== ENCOUNTER → 2022-07-08 09:06 | Outpatient (BNVA) | payer OTHER, SELFPAY | PROVIDERS: PCP Student in an Organized Health Care Education/Training Program; Visit Provider Internal Medicine Rheumatology | DX: M32.9 Systemic lupus erythematosus, unspecified (principal); N18.30 Chronic kidney disease, stage 3 unspecified; F32.A Depression, unspecified; Z79.620 Long term (current) use of immunosuppressive biologic | CPT/HCPCS: 99212 ==

== ENCOUNTER → 2022-09-11 10:15 | Outpatient (BNVA) | payer OTHER, SELFPAY | PROVIDERS: PCP Student in an Organized Health Care Education/Training Program; Visit Provider Internal Medicine Rheumatology | DX: M32.9 Systemic lupus erythematosus, unspecified (principal); M79.7 Fibromyalgia; N18.30 Chronic kidney disease, stage 3 unspecified; Z79.620 Long term (current) use of immunosuppressive biologic | CPT/HCPCS: 99212 ==

== ENCOUNTER 2022-09-11 11:50 | Outpatient (REF) | payer OTHER, SELFPAY ==
[2022-09-11 13:38] LABS: MANUAL DIFF FLAG NO
[2022-09-11 13:55] LABS: Basophils Percent Auto 0.2 % (0-2); Eosinophils Percent Auto 0.2 % (0-4); Hematocrit 34.7 % (37.0-47.0); Hemoglobin 10.4 g/dl (12.0-16.0); Imm Gran Abs Auto 0.08 X10*3/uL (0.00-0.03); Imm Gran Pct Auto 1.3 % (0.0-0.4); Lymphocytes Absolute Auto 1.3 X10*3/uL (1.2-4.9); Lymphocytes Percent Auto 21.1 % (20-40); Mean Corpuscular Hemoglobin 27.9 pg (27.0-33.0); Mean Platelet Volume 10.3 fL (9.4-12.3); Monocytes Absolute Auto 0.6 X10*3/uL (0.1-1.2); Monocytes Percent Auto 9.9 % (2-11); NRBC Pct Auto 0.3 /100WBC (0.0-0.2); Neutrophils Absolute Auto 4.3 x10*3/uL (2.0-8.3); Neutrophils Percent Auto 67.3 % (45-73); Platelet Count 362 X10*3/uL (160-400); Red Blood Count 3.73 X10*6/uL (4.20-5.50); Red Cell Distribution Width 16.4 % (11.0-16.0); White Blood Count 6.4 X10*3/uL (4.8-10.8)
[2022-09-11 14:16] LABS: Alanine Aminotransferase 10 U/L (0-31); Albumin Level 3.6 g/dL (3.5-5.0); Alkaline Phosphatase 46 U/L (39-117); Anion Gap 12 (12-20); Aspartate Amino Transferase 19 U/L (5-31); Bilirubin Total 0.2 mg/dL (0.0-1.0); Blood Urea Nitrogen 17 mg/dL (9-16); C Reactive Protein < 0.04 mg/dL (< or = 0.50); Calcium 9.1 mg/dL (8.4-10.2); Carbon Dioxide 27 mmol/L (22-29); Chloride 107 mmol/L (96-108); Estimated Glomerular Filt Rate 58; Glucose Random 97 mg/dL (60-115); Potassium 4.6 mmol/L (3.3-5.1); Sodium 141 mmol/L (135-145); Total Protein 6.3 g/dL (6.5-8.0)
[2022-09-11 14:37] LABS: Erythrocyte Sedimentation Rate 74 MM/HR (0-20)
[2022-09-11 15:13] LABS: Creatinine Urine 178.75 mg/dL
[2022-09-11 15:21] LABS: Protein/Creatinine Ratio, Ur 3.97 (<0.2); Total Protein Urine Random 709 mg/dL (<12)
[2022-09-12 15:33] LABS: Complement C3 88 mg/dL (83-193)
[2022-09-13 15:28] LABS: Anti DNA DS Antibody 19 IU/mL
== END 2022-09-11 11:51 | disposition home or self-care (01) ==
LOC: HO.10HDL 11:50
PROVIDERS: Visit Provider Internal Medicine Rheumatology
DX: M79.7 Fibromyalgia (principal); M32.9 Systemic lupus erythematosus, unspecified; N18.30 Chronic kidney disease, stage 3 unspecified; Z79.620 Long term (current) use of immunosuppressive biologic
CPT/HCPCS: 36415; 80053; 84156; 85025; 85652; 86140; 86160; 86225

== ENCOUNTER 2023-04-01 11:48 | Outpatient (AMB) | payer OTHER, SELFPAY ==
[2023-04-01 11:50] VITALS: BP 138/62; PULSE 78; TEMP 36.4; BMI 21.9
--- NOTE | 2023-04-01 11:50 | A.OFFVIS_ITS ---
Intake Vital Signs 04/01/23 11:50 Height 5 ft 7 in Weight 139 lb 8.842 oz BMI 21.9 BP 138/62 Blood Pressure Location Rt brachial Position Sitting Pulse 78 Pulse Source Palpation Temp 97.5 F Temp Source Skin Intake Visit Reasons: SLE Intake Note: Pt seen for SLE follow up. States she needs refill on all meds, and is requesting referral to Ophthalmology. [employer] Messenger Required: No Accompanied by: Mom and Son Allergies gabapentin Adverse Reaction (Unknown, Unverified 04/01/23 11:53) Hives Medication List - Last Reconciled 04/01/23 by Charan Mar MD acetaminophen 1 - 2 tabs PO QD-TID PRN amlodipine 10 mg See Protocol PO DAILY azathioprine 1 tab PO DAILY cyclobenzaprine TAKE 1 TO 2 TABLETS ORALLY BEDTIME NEEDED FOR NIGHT TIME PAINS duloxetine 60 mg PO DAILY hydroxychloroquine 300 mg PO DAILY labetalol 100 mg See Protocol PO TID multivitamin 1 tab PO DAILY prednisone 10 mg PO DAILY voclosporin 23.7 mg PO BID HPI HPI Comments History of Present Illness Details The patient presents today with her mother who is now her FUEL MANAGEMENT HANDLER. She is here for evaluation of her SLE. She says she thinks the lupus is doing okay. They are only occasional arthralgias. She has had no active skin rashes recently. Ankle edema was quite noticeable when her kidneys were bad has not been present for months. Additionally the skin lesions that she was getting on the legs have healed up although they have left some hyperpigmented areas. She is complaining that her teeth are rotting and one is broken. She has trouble with swallowing solid food and also some abdominal bloating after meals. She also has some fluctuating visual symptoms. She remains on hydroxychloroquine at 300 mg daily, duloxetine 60 mg daily, azathioprine 50 mg daily, labetalol 100 b.i.d., occasional acetaminophen and a multiple vitamin. She had stopped the mycophenolate earlier this year because it was causing nausea and vomiting. She did remain on the voclosporin but stopped it on her own in November. She was in the ER in November with obtundation after a cat bite. They did an LP that was normal. She improved with a course of antibiotics. She was told in the ER that the kidneys were fine so she decided to stop the voclosporin. She says she has a nephrology appointment on April 03. [facility] Medical History Abnormal uterine bleeding Acute on chronic anemia Anemia Anxiety Depression Essential hypertension Fibromyalgia Hypertensive urgency Lupus Lupus nephritis Pericardial effusion Rash Surgical History Hx of hernia repair Family History Mother Hypertension Type 2 diabetes mellitus Lupus Arthritis Maternal Grandmother Hypertension Type 2 diabetes mellitus Arthritis Social History Household Members: Family Housing: Apartment Do you presently have visiting nurse or other home services: No Alcohol intake: former Patient Tobacco Use Status: Never used Tobacco Cigarette Packs Per Day: 0.5 Cigarettes Per Day: 10.0 Years Smoked: 7 Substance Use Type: Marijuana Advance Directives Date on File: 04/03/22 service: No Current occupational status: disabled Review of Systems Const Details: She says she has gained some weight. Negative for appetite change, fever, chills, malaise and fatigue Eyes Details: Intermittent blurred vision. Negative for dry eyes,headaches and dizziness ENT Details: Some oral dryness. She has a broken tooth. She says she is afraid to go to dentist. Negative for hearing change, tinnitus, oral ulcer, nose bleeds and oral dryness. Card Details: Negative chest pain, edema and syncope Resp Details: Negative for SOB, cough and wheezing GI Details: Bloating after meals. Some difficulty swallowing solids. Negative indigestion/heartburn, nausea, abdominal pain, bowel changes, diarrhea, constipation and bloody stool. Details: She has a contraceptive implant that she says needs to be removed or exchanged. She is going to work on an appointment for that. Negative for dysuria, hematuria, nocturia, decreased force/flow and genital discharge Skin/Breast Details: Some hyperpigmented areas on the legs where she had previous skin lesions. Presently no active lesions. Negative for itching, rash, hives, Raynaud's symptoms, sun sensitivity, and skin cancer Neuro Details: Negative for epilepsy, palsy, stroke, changes in speech, tingling and weakness Psych Details: anxiety, depression stable with help of current counselor and the Cymbalta. Endo Details: Negative for polyuria and polydypsia Ronal/Lymph Details: Negative for excessive bruising or bleeding. Physical Exam Vital Signs: Last Vital Signs Temp 97.5 F 04/01/23 11:50 Pulse 78 04/01/23 11:50 BP 138/62 04/01/23 11:50 BMI result Body Mass Index 21.9 APPEARANCE: Patient in no acute distress EYES no redness, pupils equal and reactive to light, eyelids normal EARS:? External ear normal, canal clear and tympanic membrane normal. NOSE/SINUS:? Airflow through both nares, no nasal discharge, no bleeding THROAT:? She has a few teeth that have significant decay. No surrounding gum redness or tenderness. Oral mucosa moist, no ulcerations NECK:? No thyromegaly or masses, no adenopathy, trachea midline. HEART:? Regulrar rhythm, S1-S2 heard, no murmurs, rubs or gallops. LUNG:? Clear to percussion and auscultation ABD:? Normal bowel sounds, no organomegaly or masses.? Mild epigastric tenderness. EXTREMITIES:? no pedal edema. no calf tenderness, normal peripheral pulses. NEURO:? Oriented and alert x3.? No focal weakness.? Reflexes symmetric.? Decreased sensation of the soles of the feet and the toes.? SKIN: I do not see any skin rash.? There are a few patches of alopecia on the scalp but no scarring lesions evident; the alopecia seems less prominent than last year. There is no objective evidence of Raynaud's currently.? There are scattered hyperpigmented macules over the lower extremity below the knees.? Some of these have a bit more scarring.? She says she had skin breakdown when she had some much edema.? Those have all healed up at this point. JOINT EXAM:.?? Cervical Spine:.? Full range of motion without pain; no tenderness. Thoracic Spine:.? No scoliosis.? No tenderness on palpation. Lumbar Spine:.? Alignment normal.? Full range of motion with mild pain at the extremes.? No tenderness. Chest Wall:.? No tenderness, swelling, increased warmth or erythema. Hands:? There is mild thickening and tenderness with some flexion deformity at the right 3rd PIP.? Other joints seem to have pain-free range of motion without swelling.? There is tenderness across all the other PIP joints but they are not swollen.? There is no sensory loss or thenar atrophy. Wrists:? Left: There is some tenderness and a nodule on the extensor tendon. It is not red or warm. There is mild pain with 80 degrees flexion or extension. Right: Motion seems to be pain-free. There is some slight tenderness with some thumb extensor tendon but elsewhere no tenderness, swelling, increased warmth or erythema. Elbows:.? Left:? There is normal pain-free range of motion. There is no tenderness or swelling over the joint space.Right:? Normal pain-free range of motion without tenderness, swelling, increased warmth or erythema. Shoulders:? The?? Full range of motion with some discomfort over the trapezius regions.? Those trapezius muscles have some mild tenderness but the shoulder itself has no anterior or posterior tenderness, weakness, swelling, increased warmth or erythema.? There is no supraclavicular or axillary adenopathy. Hips:.? Full range of motion without pain. Hip bursa:.? No tenderness. Knees:? Right:? Normal pain-free range of motion with no tenderness, redness or effusion.? Left:?? Normal range of motion with no pain. There is some slight medial tenderness but no effusion, soft tissue swelling, increased warmth or erythema.? Ankles:.? Normal pain-free range of motion with mild tenderness but no swelling, increased warmth or erythema. Feet:.? Normal pain-free range of motion with mild tenderness across the insteps and MTP joints but no swelling, increased warmth or erythema. Tender points:? Mild tenderness to digital palpation at the occiput, trapezius, second rib, lateral epicondyle, knees, greater trochanter and gluteal area bilaterally. 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 Anemia, arthritis; Eye exam OK for hydroxychloroquine so it was started 2016. Spring 2020: nephrotic range proteinuria. 06/2021 kidney biopsy not a good sample. 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 Mycophenolate and voclosporin started - she could not really tolerate the mycophenolate and stopped it. She did stay on the voclosporin until November of 2022 when she stopped it on her own. Code(s): M32.9 - Systemic lupus erythematosus, unspecified Plan SLE with improvement in her symptoms over the past year. I would propose this was due to the voclosporin but she has been off it now for about 4 months. The creatinine had been stable although there was significant proteinuria when she started the voclosporin but we do not have any recent measurements. She has some scarring in the legs due to previous lupus lesions and venous disease. Her arthritis and arthralgias are much better than they have been in years. Her widespread pains from fibromyalgia in her anxiety seem a bit better controlled with current treatment. She tells me she finally has been approved for SSI so should be getting some more financial support. She is having some visual symptoms that are episodic suggesting possible corneal drying. Certainly she needs to have the retina examined given her more than 5 years use -although admittedly she is not always that compliant - of the hydroxychloroquine. I will send a referral in to see if we can get her seen at [facility] who had seen her before. She does have Sjogren's antibodies as was noted in the past. So that may be giving her some ocular dryness and the difficulty with swallowing solids. I do not have an explanation for the bloating after eating. She may need further GI workup once we clarify what to do with her immunosuppressive treatment. I did give her refills on the 10 mg daily prednisone and azathioprine 50 mg daily. Pending her lab work we could certainly increase the azathioprine a bit. I printed out some lab work to have anti double-stranded DNA, complement levels, sed rate, CRP, CMP, CBC, urine protein, and CBC done. She is going to see Nephrology I asked her to get those done at at Nephrology office and see if they could send me the results. I am not sure she should go back on the voclosporin and I told her to discuss that with the nephrology doctor.. She needs to have the dental care for her broken tooth. She needs to go to director of women's services the get the contraceptive implant revised. We will aim for follow-up in about 3 months. Review of the record at [facility], interim history, physical exam and discussion of treatment options took 48 minutes. Orders: Orders Comprehensive Met. 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 Protein Creatinine Ratio, Ur Today M32.9 - Systemic lupus erythematosus, unspecified, Z79.620 - retirement (current) use of immunosuppressive biologic Complete Blood Count Auto Diff Today M32.9 - Systemic lupus erythematosus, unspecified, Z79.620 - retirement (current) use of immunosuppressive biologic Erythrocyte Sedimentation Rate Today M32.9 - Systemic lupus erythematosus, unspecified, Z79.620 - 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 Complement C3 Today M32.9 - Systemic lupus erythematosus, unspecified, Z79.620 - retirement (current) use of immunosuppressive biologic Complement C4 Today M32.9 - Systemic lupus erythematosus, unspecified, Z79.620 - terminal 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 Anti DNA DS Antibody Today M32.9 - Systemic lupus erythematosus, unspecified, Z79.620 - 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
== END 2023-04-01 13:23 | disposition home or self-care (01) ==
PROVIDERS: PCP Student in an Organized Health Care Education/Training Program; Visit Provider Internal Medicine Rheumatology
DX: M79.7 Fibromyalgia (principal); Z79.620 Long term (current) use of immunosuppressive biologic; Z79.899 Other long term (current) drug therapy; M32.9 Systemic lupus erythematosus, unspecified
CPT/HCPCS: 99215

== ENCOUNTER → 2023-04-01 11:48 | Outpatient (BNVA) | payer OTHER, SELFPAY | PROVIDERS: PCP Student in an Organized Health Care Education/Training Program; Visit Provider Internal Medicine Rheumatology | DX: M32.9 Systemic lupus erythematosus, unspecified (principal); M79.7 Fibromyalgia; Z79.620 Long term (current) use of immunosuppressive biologic; Z79.899 Other long term (current) drug therapy | CPT/HCPCS: 99212 ==

== ENCOUNTER 2023-12-09 12:53 | Outpatient (AMB) | payer MEDICARE, MEDICAID, SELFPAY ==
--- NOTE | 2023-12-09 13:07 | A.OFFVIS_ITS ---
Intake Vital Signs 12/09/23 13:12 Height 5 ft 7 in Weight 150 lb 9.211 oz BMI 23.6 BP 124/88 Blood Pressure Location Rt brachial Position Sitting Pulse 64 Pulse Source Auscultation Temp 97.6 F Temp Source Skin Intake Visit Reasons: SLE/CM Intake Note: Patient presents today for SLE. Bacteriology Research Assistant Required: No Accompanied by: Self / Same As Patient Allergies gabapentin Adverse Reaction (Unknown, Unverified 12/09/23 13:13) Hives HPI HPI Comments History of Present Illness Details Ms. Brown 28-year-old female prevents for follow-up of her lupus. Patient has missed several appointments and has not had lab evaluation in over a year. Today she is most concerned about possible side effects from medications that she borrowed from her cousin. She is worried that it may contain fentanyl. She took the medication when she was in [place] visiting and had excruciating pain, pulled muscle in her left shoulder per patient this happened about 2 weeks ago. She would like an additional tests done to check for fentanyl. She shares that she has not been well since her last visit. Her mobility is decreasing. She also says that she needs to follow up with her kidney doctor as she is worried about her kidneys that she has a scheduled appointment in December. She continues on hydroxychloroquine 300 mg per day, prednisone 10 mg per day, azathioprine 50 mg daily and Tylenol p.r.n. 04/01/2023 Dr. Mar: The patient presents today with her mother who is now her LINE SERVICE PERSON. She is here for evaluation of her SLE. She says she thinks the lupus is doing okay. They are only occasional arthralgias. She has had no active skin rashes recently. Ankle edema was quite noticeable when her kidneys were bad has not been present for months. Additionally the skin lesions that she was getting on the legs have healed up although they have left some hyperpigmented areas. She is complaining that her teeth are rotting and one is broken. She has trouble with swallowing solid food and also some abdominal bloating after meals. She also has some fluctuating visual symptoms. She remains on hydroxychloroquine at 300 mg daily, duloxetine 60 mg daily, azathioprine 50 mg daily, labetalol 100 b.i.d., occasional acetaminophen and a multiple vitamin. She had stopped the mycophenolate earlier this year because it was causing nausea and vomiting. She did remain on the voclosporin but stopped it on her own in November. She was in the ER in November with obtundation after a cat bite. They did an LP that was normal. She improved with a course of antibiotics. She was told in the ER that the kidneys were fine so she decided to stop the voclosporin. She says she has a nephrology appointment on April 03. [facility] Medical History Abnormal uterine bleeding Acute on chronic anemia Anemia Anxiety Depression Essential hypertension Fibromyalgia Hypertensive urgency Lupus Lupus nephritis Pericardial effusion Rash Surgical History Hx of hernia repair Family History Mother Hypertension Type 2 diabetes mellitus Lupus Arthritis Maternal Grandmother Hypertension Type 2 diabetes mellitus Arthritis Social History Household Members: Family Housing: Apartment Do you presently have visiting nurse or other home services: No Alcohol intake: former Comment: achy-lupus exacerbation Patient Tobacco Use Status: Never used Tobacco Cigarette Packs Per Day: 0.5 Cigarettes Per Day: 10.0 Years Smoked: 7 Substance Use Type: Marijuana Advance Directives Date on File: 04/03/22 service: No Current occupational status: disabled Review of Systems Const All systems reviewed & are unremarkable except as noted in HPI and below Physical Exam Vital Signs: Last Vital Signs Temp 97.6 F 12/09/23 13:12 Pulse 64 12/09/23 13:12 BP 124/88 12/09/23 13:12 BMI result Body Mass Index 23.6 APPEARANCE: Patient in no acute distress EYES no redness, pupils equal and reactive to light, eyelids normal EARS:? External ear normal, canal clear and tympanic membrane normal. NOSE/SINUS:? Airflow through both nares, no nasal discharge, no bleeding THROAT:? She has a few teeth that have significant decay. No surrounding gum redness or tenderness. Oral mucosa moist, no ulcerations NECK:? No thyromegaly or masses, no adenopathy, trachea midline. HEART:? Regular rhythm, S1-S2 heard, no murmurs, rubs or gallops. LUNG:? Clear to percussion and auscultation ABD:? Normal bowel sounds, no organomegaly or masses.? Mild epigastric tenderness. EXTREMITIES:? no pedal edema. no calf tenderness, normal peripheral pulses. Antalgic gait NEURO:? Oriented and alert x3.? No focal weakness.? Reflexes symmetric.? Decreased sensation of the soles of the feet and the toes.? SKIN: No skin rash.? There are a few patches of alopecia on the scalp but no scarring lesions evident; There is no objective evidence of Raynaud's currently.? There are scattered hyperpigmented macules over the lower extremity below the knees.? Some of these have a bit more scarring.? She says she had skin breakdown when she had some much edema.? Those have since healed. JOINT EXAM:.?? Cervical Spine:.? Full range of motion without pain; no tenderness. Thoracic Spine:.? No scoliosis.? No tenderness on palpation. Lumbar Spine:.? Alignment normal.? Full range of motion with mild pain at the extremes.? No tenderness. Chest Wall:.? No tenderness, swelling, increased warmth or erythema. Hands:? There is mild thickening and tenderness with some flexion deformity at the right 3rd PIP.? Other joints seem to have pain-free range of motion without swelling.? There is tenderness across all the other PIP joints but they are not swollen.? There is no sensory loss or thenar atrophy. Wrists:? Left: There is some tenderness and a nodule on the extensor tendon. It is not red or warm. There is mild pain with 80 degrees flexion or extension. Right: Motion seems to be pain-free. There is some slight tenderness with some thumb extensor tendon but elsewhere no tenderness, swelling, increased warmth or erythema. Elbows:.? Left:? There is normal pain-free range of motion. There is no tenderness or swelling over the joint space.Right:? Normal pain-free range of motion without tenderness, swelling, increased warmth or erythema. Shoulders:? The?? Full range of motion with some discomfort over the trapezius regions.? Those trapezius muscles have some mild tenderness but the shoulder itself has no anterior or posterior tenderness, weakness, swelling, increased warmth or erythema.? There is no supraclavicular or axillary adenopathy. Hips:.? Full range of motion without pain. Hip bursa:.? No tenderness. Knees:? Right:? Normal pain-free range of motion with no tenderness, redness or effusion.? Left:?? Normal range of motion with no pain. There is some slight medial tenderness but no effusion, soft tissue swelling, increased warmth or erythema.? Ankles:.? Normal pain-free range of motion with mild tenderness but no swelling, increased warmth or erythema. Feet:.? Normal pain-free range of motion with mild tenderness across the insteps and MTP joints but no swelling, increased warmth or erythema. Tender points:? Mild tenderness to digital palpation at the occiput, trapezius, second rib, lateral epicondyle, knees, greater trochanter and gluteal area bilaterally. Results Reviewed Results Reviewed: Lab work available from [facility] reference labs- November 2022: White count 7000, hemoglobin 9.4, hematocrit 30.3, platelet count 501223, ESR 97, creatinine 1.0, albumin 4.5, SGOT 17, SGPT 6, C3 106, C4 21, anti DNA positive at 27 April 2022: Protein creatinine ratio in the urine was 3.26 Assessment & Plan Assessment & Plan (1) Fibromyalgia: Code(s): M79.7 - Fibromyalgia (2) USP (current) use of immunosuppressive biologic: Code(s): Z79.620 - intermission coordinator (current) use of immunosuppressive biologic (3) Long-term use of hydroxychloroquine: Code(s): Z79.899 - Other usp (current) drug therapy (4) Systemic lupus erythematosus: Comment: Onset March 2016: positive REN, anti-DNA, anti-Sm, anti-METAL WORKER, SS-A, SS-B. Anemia, arthritis; Eye exam OK for hydroxychloroquine so it was started 2016. Spring 2020: nephrotic range proteinuria. 06/2021 kidney biopsy not a good sample. 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 Mycophenolate and voclosporin started - she could not really tolerate the mycophenolate and stopped it. She did stay on the voclosporin until November of 2022 when she stopped it on her own. Code(s): M32.9 - Systemic lupus erythematosus, unspecified Qualifiers: Systemic lupus erythematosus type: other Systemic lupus erythematosus organ involvement: glomerular disease Qualified Code(s): M32.14 - Glomerular disease in systemic lupus erythematosus Plan Patient here for follow-up of her lupus. She has missed several appointments. And has not had labs since November of 2022. Physically,she appears to be doing fairly well. She does continue to walk with a limp sequelae from her prior illnesses. Her conditions with dental cavities and joint pains persists. At this point we would want to obtain updated lab analysis for further assessment to determine if any alterations needed in treatment. We will continue her current medication regimen of hydroxychloroquine 300 mg q.d. and prednisone 10 mg q.d. with Tylenol p.r.n.. She has an up coming Nephrology visit which I encouraged her to keep. I spent 50 minutes reviewing history, evaluating patient and documenting. 04/01/2023 Dr. Mar assessment SLE with improvement in her symptoms over the past year. I would propose this was due to the voclosporin but she has been off it now for about 4 months. The creatinine had been stable although there was significant proteinuria when she started the voclosporin but we do not have any recent measurements. She has some scarring in the legs due to previous lupus lesions and venous disease. Her arthritis and arthralgias are much better than they have been in years. Her widespread pains from fibromyalgia in her anxiety seem a bit better controlled with current treatment. She tells me she finally has been approved for SSI so should be getting some more financial support. She is having some visual symptoms that are episodic suggesting possible corneal drying. Certainly she needs to have the retina examined given her more than 5 years use -although admittedly she is not always that compliant - of the hydroxychloroquine. I will send a referral in to see if we can get her seen at [facility] who had seen her before. She does have Sjogren's antibodies as was noted in the past. So that may be giving her some ocular dryness and the difficulty with swallowing solids. I do not have an explanation for the bloating after eating. She may need further GI workup once we clarify what to do with her immunosuppressive treatment. I did give her refills on the 10 mg daily prednisone and azathioprine 50 mg daily. Pending her lab work we could certainly increase the azathioprine a bit. I printed out some lab work to have anti double-stranded DNA, complement levels, sed rate, CRP, CMP, CBC, urine protein, and CBC done. She is going to see Nephrology I asked her to get those done at at Nephrology office and see if they could send me the results. I am not sure she should go back on the voclosporin and I told her to discuss that with the nephrology doctor.. She needs to have the dental care for her broken tooth. She needs to go to compliance assistant the get the contraceptive implant revised. We will aim for follow-up in about 3 months. Review of the record at [facility], interim history, physical exam and discussion of treatment options took 48 minutes. Orders: Orders Complete Blood Count Auto Diff 12/09/23 M3.9 - Systemic lupus erythematosus, unspecified, Z79.899 - Other usp (current) drug therapy Erythrocyte Sedimentation Rate 12/09/23 M32.9 - Systemic lupus erythematosus, unspecified, Z79.899 - Other petroleum terminal plant operator (current) drug therapy Drug Screen Urine 12/09/23 M3.9 - Systemic lupus erythematosus, unspecified, Z79.899 - Other usp (current) drug therapy Protein Creatinine Ratio, Ur 12/09/23 M32.9 - Systemic lupus erythematosus, unspecified, Z79.899 - Other usp (current) drug therapy Anti DNA DS Antibody 12/09/23 M32.9 - Systemic lupus erythematosus, unspecified, Z79.899 - Other petroleum terminal plant operator (current) drug therapy C Reactive Protein 12/09/23 M32.9 - Systemic lupus erythematosus, unspecified, Z79.899 - Other petroleum terminal plant operator (current) drug therapy Complement C3 12/09/23 M32.9 - Systemic lupus erythematosus, unspecified, Z79.899 - Other usp (current) drug therapy Complement C4 12/09/23 M32.9 - Systemic lupus erythematosus, unspecified, Z79.899 - Other petroleum terminal plant operator (current) drug therapy Comprehensive Met. Panel 12/09/23 M32.9 - Systemic lupus erythematosus, unspecified, Z79.899 - Other petroleum terminal plant operator (current) drug therapy Coding Level of Care Code Est Pt Level 5 (79871) Diagnoses Fibromyalgia M79.7 USP (current) use of immunosuppressive biologic Z79.620 Long-term use of hydroxychloroquine Z79.899 Other systemic lupus erythematosus with glomerular disease M32.14 Systemic lupus erythematosus type: other Systemic lupus erythematosus organ involvement: glomerular disease
[2023-12-09 13:12] VITALS: BP 124/88; PULSE 64; TEMP 36.4; BMI 23.6
== END 2023-12-09 13:54 | disposition home or self-care (01) ==
PROVIDERS: PCP Student in an Organized Health Care Education/Training Program; Visit Provider Nurse Practitioner Family
DX: M32.14 Glomerular disease in systemic lupus erythematosus (principal); M79.7 Fibromyalgia; Z79.620 Long term (current) use of immunosuppressive biologic; Z79.899 Other long term (current) drug therapy
CPT/HCPCS: 99215

== ENCOUNTER → 2023-12-09 12:53 | Outpatient (BNVA) | payer MEDICARE, MEDICAID, SELFPAY | PROVIDERS: PCP Student in an Organized Health Care Education/Training Program; Visit Provider Nurse Practitioner Family | DX: M79.7 Fibromyalgia (principal); M32.14 Glomerular disease in systemic lupus erythematosus; Z79.620 Long term (current) use of immunosuppressive biologic; Z79.899 Other long term (current) drug therapy | CPT/HCPCS: 99212 ==

== ENCOUNTER 2023-12-16 16:26 | Outpatient (REF) | payer MEDICARE, MEDICAID, SELFPAY ==
[2023-12-16 16:45] LABS: MANUAL DIFF FLAG NO
[2023-12-16 17:42] LABS: Basophils Percent Auto 0.2 % (0-2); Hematocrit 30.6 % (37.0-47.0); Hemoglobin 9.5 g/dl (12.0-16.0); Imm Gran Abs Auto 0.03 X10*3/uL (0.00-0.03); Imm Gran Pct Auto 0.6 % (0.0-0.4); Lymphocytes Absolute Auto 1.2 X10*3/uL (1.2-4.9); Lymphocytes Percent Auto 24.1 % (20-40); Mean Corpuscular Hemoglobin 27.5 pg (27.0-33.0); Mean Corpuscular Volume 88.4 fL (80.0-98.0); Mean Platelet Volume 11.2 fL (9.4-12.3); Monocytes Absolute Auto 0.3 X10*3/uL (0.1-1.2); Monocytes Percent Auto 5.5 % (2-11); Neutrophils Absolute Auto 3.5 x10*3/uL (2.0-8.3); Neutrophils Percent Auto 69.6 % (45-73); Platelet Count 298 X10*3/uL (160-400); Red Blood Count 3.46 X10*6/uL (4.20-5.50); Red Cell Distribution Width 15.7 % (11.0-16.0); White Blood Count 5.1 X10*3/uL (4.8-10.8)
[2023-12-16 18:05] LABS: Alanine Aminotransferase 6 U/L (0-31); Albumin Level 4.1 g/dL (3.5-5.0); Alkaline Phosphatase 50 U/L (39-117); Anion Gap 11 (12-20); Aspartate Amino Transferase 14 U/L (5-31); Bilirubin Total 0.3 mg/dL (0.0-1.0); Blood Urea Nitrogen 17 mg/dL (9-16); C Reactive Protein < 0.10 mg/dL (< or = 0.50); Calcium 9.5 mg/dL (8.4-10.2); Carbon Dioxide 24 mmol/L (22-29); Chloride 108 mmol/L (96-108); Estimated Glomerular Filt Rate > 60; Glucose Random 105 mg/dL (60-115); Potassium 4.9 mmol/L (3.3-5.1); Sodium 138 mmol/L (135-145); Total Protein 7.7 g/dL (6.5-8.0)
[2023-12-16 18:20] LABS: Amphetamine Screen Urine Not Detected (Not Detect); Barbiturates, Urine Not Detected (Not Detect); Benzodiazepines Screen Urine Not Detected (Not Detect); Cannabinoid Screen Urine POSITIVE (Not Detect); Cocaine Screen Urine Not Detected (Not Detect); Fentanyl, urine POSITIVE (Not Detect); Opiate Screen Urine POSITIVE (Not Detect); Phencyclidine Screen Urine Not Detected (Not Detect)
[2023-12-16 18:35] LABS: Creatinine Urine 107.19 mg/dL; Total Protein Urine Random 107 mg/dL (<12)
[2023-12-16 21:01] LABS: Erythrocyte Sedimentation Rate 33 MM/HR (0-20)
[2023-12-17 22:23] LABS: Anti DNA DS Antibody 8 IU/mL
[2023-12-18 11:43] LABS: Complement C3 35 mg/dL (83-193)
== END 2023-12-16 16:27 | disposition home or self-care (01) ==
LOC: HO.LAB 16:26
PROVIDERS: PCP Student in an Organized Health Care Education/Training Program; Visit Provider Nurse Practitioner Family
DX: M32.9 Systemic lupus erythematosus, unspecified (principal); Z79.899 Other long term (current) drug therapy
CPT/HCPCS: 80053; 80307; 82570; 84156; 85025; 85652; 86140; 86160; 86225

== ENCOUNTER 2024-04-19 16:05 | Outpatient (AMB) | payer MEDICARE, MEDICAID, SELFPAY ==
--- NOTE | 2024-04-19 16:10 | A.OFFVIS_ITS ---
Vital Signs 04/19/24 16:17 Height 5 ft 7 in Weight 145 lb 4.554 oz BMI 22.8 BP 128/70 Blood Pressure Location Lt brachial Position Sitting Pulse 98 Pulse Source Pulse Oximeter Pulse Oximetry (%) 99 Oxygen Delivery Method Room Air Intake Visit Reasons: Sle/lm Intake Note: Patient last seen on 12/09/23 by Eunice Mayer present today for follow up and test results. Allergies mycophenolate mofetil Adverse Reaction (Intermediate, Verified 04/19/24 16:45) GI upset gabapentin Adverse Reaction (Unknown, Unverified 04/19/24 16:11) Hives Medication List - Last Reconciled 04/19/24 by Jaja Zimmer MD acetaminophen 1 - 2 tabs PO QD-TID PRN amlodipine 10 mg See Protocol PO DAILY cyclobenzaprine TAKE 1 TO 2 TABLETS ORALLY BEDTIME NEEDED FOR NIGHT TIME PAINS duloxetine 60 mg PO DAILY hydroxychloroquine 300 mg (1.5 x 200 mg) PO DAILY labetalol 100 mg See Protocol PO TID multivitamin 1 tab PO DAILY prednisone 10 mg PO DAILY trazodone 50 mg PO BEDTIME voclosporin (Lupkynis) 23.7 mg PO BID HPI Comments Details: This is a 29-year-old female with lupus complicated by lupus nephritis who presents for follow-up. She states that she is doing fairly well overall except for her teeth. She has multiple broken teeth and she missed several appointments with her dentist, they no longer accept her insurance. She is trying to find another dentist that would take her insurance. She states that she was in [place] and had significant sun exposure, when she came back from [place] she took amoxicillin that was a prescription for 1 of her children, she then developed a rash on the extensor aspect of her arms, it was not itchy, she was not sure whether it was an allergic reaction to amoxicillin versus a lupus rash due to recent significant sun exposure. She states that she feels bloated and has a belly. Her main complaint today is dental pain due to multiple broken teeth as well as tongue burning She is on prednisone 10 mg daily, cyclosporine three tabs Twice daily, proxy chloroquine 300 mg daily labetalol. She states that she has not seen her kidney doctor in awhile. Denies any significant joint pain or swelling. [facility] Medical History Lupus nephritis Pericardial effusion Essential hypertension Rash Acute on chronic anemia Abnormal uterine bleeding Hypertensive urgency Anemia Depression Anxiety Fibromyalgia Lupus Surgical History Hx of hernia repair Family History Mother Hypertension Type 2 diabetes mellitus Lupus Arthritis Maternal Grandmother Hypertension Type 2 diabetes mellitus Arthritis Social History Household Members: Family Housing: Apartment Do you presently have visiting nurse or other home services: No Alcohol intake: former Comment: achy-lupus exacerbation Patient Tobacco Use Status: Never used Tobacco Cigarette Packs Per Day: 0.5 Cigarettes Per Day: 10.0 Years Smoked: 7 Substance Use Type: Marijuana Advance Directives Date on File: 04/03/22 service: No Current occupational status: disabled Review of Systems ENT Reports dental pain GI Reports bloating Musc Reports myalgias, Denies arthralgias and Denies stiffness Skin/Breast Reports rash Physical Exam Vital Signs: Last Vital Signs Pulse 98 04/19/24 16:17 BP 128/70 04/19/24 16:17 Pulse Ox 99 04/19/24 16:17 Oxygen Delivery Method Room Air 04/19/24 16:17 BMI result Body Mass Index 22.8 Const General: cooperative, healthy appearing and comfortable Nutritional Appearance: average body habitus Orientation/consciousness: patient oriented x3 Limitations: no limitations HEENT Head: Yes normocephalic and Yes atraumatic Mouth: moist mucous membranes Resp Effort & Inspection: normal respiratory effort and able to speak in complete sentences Auscultation: clear to auscultation bilaterally Cardio Rate: regular rate Skin Other: Subtle resolving erythematous rashes on extensor aspect of both arms and shoulders old hyperpigmented rashes on her legs Neuro General: patient oriented x3 Extrem Other: No active synovitis today Normal nailfold capillaroscopy Assessment & Plan Assessment & Plan (1) Systemic lupus erythematosus: Comment: Onset March 2016: (anemia, rashes, inflammatory arthritis, 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 06/2021 kidney biopsy not a good samp le. 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 MMF & buccal swollen started around 03/2022, self DC MMF, stayed on volosporin Code(s): M32.9 - Systemic lupus erythematosus, unspecified Category: Medical Qualifiers: Systemic lupus erythematosus type: other Systemic lupus erythematosus organ involvement: glomerular disease Qualified Code(s): M32.14 - Glomerular disease in systemic lupus erythematosus Plan: This is a 29-year-old female with SLE who presents for follow-up. This is her 1st visit with me. She is on prednisone 10 mg daily, vanco swollen 23.7 mg Twice daily and hydroxychloroquine 300 mg daily. Upon clinical evaluation I do not see any signs of active lupus. Her previous urine studies 12/2023 showed im proving proteinuria. Her main issue today is multiple broken teeth Check SLE activity labs today. Continue current meds as prescribed. I think at this time we should attempt to lower her prednisone if possible. Labs before next visit in 3 months (2) Long-term use of hydroxychloroquine: Code(s): Z79.899 - Other mcc (current) drug therapy Category: Medical Plan: Discussed risk of retinopathy associated with hydroxychloroquine. 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 Follow-up regularly with Nephrology Plan I spent 46 minutes reviewing patient's chart, evaluating patient, ordering diagnostic workup, counseling patient and documenting in the chart Orders: Orders Comprehensive Met. Panel 3 Months M32.14 - Glomerular disease in systemic lupus erythematosus C Reactive Protein 3 Months M32.14 - Glomerular disease in systemic lupus erythematosus Erythrocyte Sedimentation Rate 3 Months M32.14 - Glomerular disease in systemic lupus erythematosus Anti DNA DS Antibody 3 Months M32.14 - Glomerular disease in systemic lupus erythematosus Complement C3 3 Months M32.14 - Glomerular disease in systemic lupus erythematosus Complement C4 3 Months M32.14 - Glomerular disease in systemic lupus erythematosus Protein Creatinine Ratio, Ur 3 Months M32.14 - Glomerular disease in systemic lupus erythematosus Complement C4 Today M32.14 - Glomerular disease in systemic lupus erythematosus Erythrocyte Sedimentation Rate Today M32.14 - Glomerular disease in systemic lupus erythematosus Protein Creatinine Ratio, Ur Today M3.14 - Glomerular disease in systemic lupus erythematosus Complete Blood Count Auto Diff 3 Months M3.14 - Glomerular disease in systemic lupus erythematosus UA w Microscopic 3 Months M3.14 - Glomerular disease in systemic lupus erythematosus Anti DNA DS Antibody Today M32.14 - Glomerular disease in systemic lupus erythematosus Complement C3 Today M3.14 - Glomerular disease in systemic lupus erythematosus C Reactive Protein Today M32.14 - Glomerular disease in systemic lupus erythematosus UA w Microscopic Today M3.14 - Glomerular disease in systemic lupus erythematosus Complete Blood Count Auto Diff Today M3.14 - Glomerular disease in systemic lupus erythematosus Comprehensive Met. Panel Today .14 - Glomerular disease in systemic lupus erythematosus Hepatitis A,B,C Profile Today Z11.59 - Encounter for screening for other viral diseases T Spot TB Today Z11.7 - Encounter for testing for latent tuberculosis infection Thiopurine Methyltransferase Today Z79.624 - retirement (current) use of inhibitors of nucleotide synthesis Medications: New Magic Mouthwash Diphen/Lido/Antacid 1:1:1 Lidocaine Viscous 2 % 80mL; diphenhydramine 12.5 mg/5 mL 80mL; aluminum-mag hydrox-simeth [id number]/5mL 80mL 5 mL PO QID PRN 240 mL 0RF mouth pain Discontinued azathioprine Discontinued Reason: Doctor's Order 50 mg PO DAILY 30 tabs 2RF M32.9 - Systemic lupus erythematosus, unspecified Coding Level of Care Code Est Pt Level 5 (40566) Diagnoses Other systemic lupus erythematosus with glomerular disease 14 Systemic lupus erythematosus type: other Systemic lupus erythematosus organ involvement: glomerular disease Long-term use of hydroxychloroquine Z79.899 retirement (current) use of immunosuppressive biologic Z79.620
[2024-04-19 16:17] VITALS: BP 128/70; PULSE 98; O2SAT 99; BMI 22.8
== END 2024-04-19 16:39 | disposition home or self-care (01) ==
PROVIDERS: PCP Student in an Organized Health Care Education/Training Program; Visit Provider Student in an Organized Health Care Education/Training Program
DX: M32.14 Glomerular disease in systemic lupus erythematosus (principal); Z79.899 Other long term (current) drug therapy; Z79.620 Long term (current) use of immunosuppressive biologic
CPT/HCPCS: 99215

== ENCOUNTER → 2024-04-19 16:05 | Outpatient (BNVA) | payer MEDICARE, MEDICAID, SELFPAY | PROVIDERS: PCP Student in an Organized Health Care Education/Training Program; Visit Provider Student in an Organized Health Care Education/Training Program | DX: M32.14 Glomerular disease in systemic lupus erythematosus (principal); Z79.899 Other long term (current) drug therapy; Z79.620 Long term (current) use of immunosuppressive biologic; Z79.624 Long term (current) use of inhibitors of nucleotide synthesis | CPT/HCPCS: 99212 ==

== ENCOUNTER 2025-02-11 16:33 | Inpatient (IN) | payer MEDICARE, MEDICAID, SELFPAY ==
[2025-02-11] VITALS (16 sets, daily range): BP systolic 96–147; BP diastolic 47–85; PULSE 101–124; RESP 25–47; TEMP 35.9–37.1; O2SAT 88–97; BMI 19.9; BMI 19.8
--- NOTE | ~2025-02-11 | CT_ITS ---
EXAMINATION: CT ANGIOGRAM CHEST CLINICAL INFORMATION: Patient on dialysis. Evaluation for PE. COMPARISON: Non-IV contrast CT chest dated February 11, 2025. Correlated to ventilation/perfusion lung scan dated February 18, 2025. TECHNIQUE: Multiple axial images were obtained through the chest after the administration of 65 mL of Omnipaque 350 intravenous contrast. Extensive vascular post-processing including two-dimensional and three-dimensional reformatted images were created and reviewed on an independent workstation. SmartPrep technique. This CT examination was performed using dose optimization techniques as appropriate, variously including the following: *Automated exposure control *Adjustment of mA and/or kV according to patient size (this includes techniques or standardized protocols for targeted exams where dose is matched to indication/reason for exam; i.e. extremities or head) *Use of iterative reconstruction technique DLP: 119 mGy centimeter. FINDINGS: There is normal patency without intraluminal filling defects within the main pulmonary artery or its main subsegmental pulmonary branches. No aneurysm or dissection, thoracic aorta. Bilateral multifocal patchy and confluent pulmonary groundglass in attenuation is extending from the peribronchial septal more conspicuous on the right lung. There are multiple saccular and cylindrical bronchiectasis, right lung. There is gas and fluid-filled levels in a thick wall approximately 2.1 cm pulmonary cystic lesion versus cavitation, posterior segment right upper lung lobe. Trace of bilateral pleural effusion. No pneumothorax. Small volume pericardial effusion. No gross lymphadenopathy, mediastinum or perihilar. There is a central venous line catheter in the in the right atrium with a left-sided the approach. S-shaped curvature of the thoracolumbar spine and likely scoliosis. No acute fracture or listhesis in the axial skeleton. CT/CT angio chest PE protocol IMPRESSION: No acute pulmonary artery emboli. Multifocal pneumonia involving most of the right lung with as stated the bronchiectasis and a dominant 2.1 cm cavitary lesion, posterior segment right upper lung lobe. Fleischner guidelines were followed. Electronically signed by: Vick Pantoja MD 03/04/2025 11:10 AM EDT
--- NOTE | ~2025-02-11 | CT_ITS ---
CLINICAL HISTORY: s p renal biopsy; ?hematoma CT abdomen and pelvis without contrast Comparison: US/OT - US ABDOMEN LIMITED - 02/17/25 17:[address]/SR - CT ABDOMEN PELVIS WO IV CON - 02/11/25 19:08 EDT Findings: Minimal patchy bibasilar opacities are present with minimal right lower lobe bronchiectasis. The liver is mildly enlarged. The liver appears normal in contour. The gallbladder and solid organs are otherwise within normal limits. No renal stones. No hydronephrosis or hydroureter. Tiny focus of gas identified near the cortical surface of the inferior right kidney on axial image number 297 of series 3. There is minimal adjacent perinephric fat stranding. No bowel obstruction. Vmun-rk-liadvrlc fluid identified within the lumen of the colon. Mesh material in place at the anterior abdominal wall, suggesting prior hernia repair. Pelvic contents unremarkable. The bladder is collapsed, limiting its evaluation. Normal appendix. The bones are intact. IMPRESSION: 1. Tiny focus of gas identified near the cortical surface of the inferior pole of the right kidney with minimal adjacent fat stranding, suggesting postprocedural change given the patient's history. No significant hematoma appreciated. No hydronephrosis or hydroureter. 2. Mild hepatomegaly. This document has been electronically signed by: Pardeep Mays MD on 03/01/2025 00:22:47
--- NOTE | ~2025-02-11 | CT_ITS ---
PROCEDURE: CT GUIDED BIOPSY, KIDNEY CLINICAL INFORMATION: Acute renal failure. Question lupus nephritis COMPARISON: CT abdomen 02/11/[address]-guided right kidney biopsy 03/21/2022 TECHNIQUE: Following explaining CT-guided right renal core biopsy procedure, benefits and risk, a written consent was obtained. Patient was placed prone on CT and preliminary imaging was obtained. Lead markers were placed on axial slice of the posterior abdomen repeat CT imaging was obtained. An optimal marker was selected and a skin marker was placed overlying the lower pole of right kidney. The skin marker area was cleaned and draped in usual sterile manner with 2% chlorhexidine solution. 1% lidocaine was injected puncture site. Through a small skin incision a 20-gauge guide needle was advanced from the skin into the lower pole right kidney. Coaxially a 20 gauge biopsy gun was advanced and a 4 pass core biopsy was obtained. After observing blood return through the guide needle, two Gelfoam particles was administered through the guide needle and needle withdrawn. Patient tolerated procedure extremely well. Simple dressing applied post procedure. Conscious sedation with 2 mg of Versed and 50 mg of fentanyl was utilized during exam and patient monitored by IR nurse and IR physician. This CT examination was performed using dose optimization techniques as appropriate, variously including the following: *Automated exposure control *Adjustment of mA and/or kV according to patient size (this includes techniques or standardized protocols for targeted exams where dose is matched to indication/reason for exam; i.e. extremities or head) *Use of iterative reconstruction technique FINDINGS: On preliminary CT imaging both kidneys are normal size, shape and position. No radiopaque calculi or hydronephrosis seen. No perinephric stranding seen. CT fluoroscopy guided right renal lower pole core biopsy performed. Postprocedure CT revealed no perinephric or intrarenal hemorrhage. CT/CT biopsy renal RT IMPRESSION: Successful CT fluoroscopy guided right renal lower pole biopsy performed. DLP: 186 mGy/cm. Electronically signed by: Ghulam Sanchez MD 02/28/2025 11:40 AM EDT
--- NOTE | ~2025-02-11 | IR_ITS ---
EXAMINATION: Ultrasound and fluoroscopy-guided placement of left permacath. CLINICAL INDICATIONS: Renal failure TECHNIQUE: Following explaining CONVERSION of existent and if not possible a new permacath insertion under ultrasound fluoroscopy procedure, benefits and risk, a written consent was obtained. Prominent in the ultrasound imaging of the right jugular vein was performed and reveals significant clot surrounding the catheter. Hence in the ultrasound imaging of the left jugular vein was performed. An optimal site was selected along the left neck and marked on the skin. Marked area of the left neck was cleaned and draped in usual sterile manner. 1% lidocaine was injected puncture site. A singlewall needle was advanced and the overall ultrasound guidance and left jugular vein above the clavicle was punctured. After containing venous return a thin guidewire was placed over the needle and needle withdrawn. A 5 Swedish dilator sheath was placed over the guidewire and the entire unit was anchored to the drape. Approximately 1 gauze length away from the left neck puncture along the anterior chest wall one percent lidocaine was injected and a small incision was performed. The permacatheter attached to the tunneler was then inserted from the anterior chest wall incision and pulled through the left neck incision making sure the cuff remained just hidden underneath the anterior chest wall incision. The 5 Swedish dilator was removed over the guidewire and 8 Swedish and a 10 Swedish dilator was inserted and the tract was dilated. A 14 Swedish dilator with peel-away sheath was inserted over the wire. The dilator was removed and the existing permacatheter was inserted through a peel-away sheath. The peel-away sheath was removed as the catheter was held in position. A single image was obtained post procedure. The permacatheter tip was anchored with nonabsorbable 3-0 nylon sutures to the skin. Absorbable sutures were placed around the neck incision. The catheter was flushed with heparinized saline. Simple dressing applied post procedure. There was minimal bleeding approximately 5 mL and less. The right neck was cleaned and sterile manner. The sutures were removed and that diagnosis catheter was slowly removed making show no thrombus was displaced. There is no immediate bleeding due to the thrombus and jugular vein. FINDINGS/ IR/IR us guide venous access IMPRESSION: Successful insertion of a left permacatheter on this ultrasound fluoroscopy guidance. The tip of the catheter lies in the mid SVC. On ultrasound images of the right neck there is moderate clot seen a dilated jugular vein surrounding the dialysis catheter. The results were immediately called to ELLA Ayon at 10:00 AM by [employer]. Fluoroscopy time: 0.3 minutes. Dose: 14.3 mGy/cm. Electronically signed by: Ghulam Sanchez MD 02/28/2025 07:56 AM EDT
--- NOTE | ~2025-02-11 | US_ITS ---
CLINICAL HISTORY: thrombocytopenia, eval for hepatosplenomegaly US abdomen limited Comparison: CT/SR - CT ABDOMEN PELVIS WO IV CON - 02/11/25 19:08 EDT Findings: The liver is enlarged measuring 19.1 cm with normal echotexture. There is no intrahepatic bile duct dilatation. The common duct is 3.0 mm in diameter. Gallbladder sludge. The spleen is normal in size measuring 7.8 cm. IMPRESSION: Hepatomegaly. The size of the spleen is normal. This document has been electronically signed by: Leland Interiano MD on 02/17/2025 18:09:59
--- NOTE | ~2025-02-11 | CT_ITS ---
CLINICAL HISTORY: new onset renal failure CT abdomen and pelvis without contrast Comparison: None Findings: Examination is limited by without contrast. No pleural effusion. Liver is enlarged. Pancreas, Spleen and both adrenals show normal size, shape and attenuation on present unenhanced scan. No CBD dilatation. No calcified gallstone in the gallbladder. Both kidneys reveal normal in size, shape, position and attenuation. No kidney stone. No hydronephrosis. The IVC, aorta and portal vein are within normal position and caliber. No evidence of retroperitoneal lymphadenopathy or ascites. Calcifications of the pelvis are likely to be phleboliths. The visible parts of the bowel loops show no obvious mass lesions or wall thickening. Appendix appears normal. Urinary bladder reveals normal lumen and fox. The pelvic organs are unremarkable. Visualized osseous structures appear unremarkable. No lytic or sclerotic bony lesion. IMPRESSION: No kidney stone or hydronephrosis. Hepatomegaly. This document has been electronically signed by: Leland Interiano MD on 02/11/2025 20:29:59
--- NOTE | ~2025-02-11 | XR_ITS ---
EXAMINATION: XR CHEST CLINICAL INFORMATION: re-eval multifocal pna COMPARISON: CT chest angiography 03/04/2025 Chest x-ray 02/21/2025, 02/18/2025. TECHNIQUE: AP view of the chest was obtained. FINDINGS: Left-sided dialysis catheter in place with tip terminating at the cavoatrial junction. The cardiac, hilar, and mediastinal contours are normal. Improving airspace disease in the right upper lobe distribution compared with prior exams. The cavitary lesion seen on CT is not well imaged by radiography. Linear type atelectasis left base. No pneumothorax or effusion. No focal osseous or soft tissue abnormality. XR/XR chest 1V IMPRESSION: 1. Improving airspace disease right upper lobe distribution compared with prior exams. The cavitary lesion seen on CT is not well imaged by radiography. 2. Stable linear type atelectasis left base. 3. No new or worsening airspace disease. Electronically signed by: Dutch Gutierrez MD 03/07/2025 08:27 AM EDT
--- NOTE | ~2025-02-11 | XR_ITS ---
CLINICAL HISTORY: Persistent cough --- Additional Notes or Special Instructions: Pt in dialysis, 3 ho urs long. check back after 7:45. 1 view chest x-ray Comparison: CR/MO/SR - XR CHEST 1V - 02/18/25 15:48 EDT Findings: Right internal jugular central venous catheter is unchanged in position with tip projected over the superior vena cava. Lungs are well inflated. Continued dense consolidation within the right upper lobe extending towards the right hilum. The overall extent is slightly diminished in area compared to prior study. Continued streaky density in the right lung base. Left lung is clear. No pleural effusion or pneumothorax. Impression: Continued dense consolidation within the right upper lobe with less pronounced consolidation of the right lung base. This document has been electronically signed by: Ángel Brenner MD on 02/21/2025 21:23:57
--- NOTE | ~2025-02-11 | XR_ITS ---
CLINICAL HISTORY: Fever, respiratory failure --- Additional Notes or Special Instructions: Pt not in room - AMS @ 1634 Single view of the chest. COMPARISON: XR chest dated 02/12/25 at 13:37 EDT FINDINGS: Interval extubation and removal of enteric tube. Right IJ central venous line tip overlies the proximal SVC. Normal heart size. Consolidation and airspace opacity within the right midlung, decreased since prior imaging. No pleural effusion. No pneumothorax. No acute fracture. Dextrocurvature of the midthoracic spine. IMPRESSION: 1. Improved right midlung pneumonia. This document has been electronically signed by: Christian Mullins MD on 02/16/2025 17:50:01
--- NOTE | ~2025-02-11 | XR_ITS ---
CLINICAL HISTORY: ETT and OGT placement 1 view chest x-ray Comparison: CR - XR CHEST 1V - 02/11/25 17:16 EDT Findings: Extensive patchy consolidation within the right lung, most pronounced within the right upper lobe. The left lung is clear. There is no gross evidence of pleural effusion. The endotracheal tube is 5.7 cm above the krys. The nasogastric tube tip is within the proximal body of the stomach. The right internal jugular central venous line tip is at the junction between the internal jugular and innominate vein. Heart size is normal. No acute fracture. IMPRESSION: 1. Extensive severe pneumonia within the right lung, similar to the prior study. 2. The endotracheal tube is 5.7 cm above the krys. The nasogastric tube tip is within the proximal body of the stomach. The right internal jugular central venous line tip is at the junction between the internal jugular and innominate vein. This document has been electronically signed by: Aggie Blake MD on 02/12/2025 14:34:12
--- NOTE | ~2025-02-11 | NM_ITS ---
CLINICAL HISTORY: respiratry failure, elevated ddimer; eval for PE NUCLEAR MEDICINE LUNG PERFUSION IMAGING Comparison: CR - XR CHEST 1V - 02/16/25 17:34 EDT Findings: Perfusion: 3.0mCi Tc 99m MAA Perfusion only imaging was performed. Relatively diminished perfusion throughout the right lung. There is a nonsegmental perfusion defect in the right upper lobe. There is corresponding pneumonia on comparison chest radiograph. Diminished perfusion in the right lower lobe with segmental configuration. Incongruent patchy airspace opacities in the right lower lobe are seen. Impression: 1. At least 1 segmental perfusion defect identified in the right lung for which the possibility of pulmonary embolism cannot be entirely excluded. This document has been electronically signed by: Martha Le DO on 02/18/2025 16:49:11
--- NOTE | ~2025-02-11 | US_ITS ---
EXAMINATION: US TRIPLEX LOWER EXTREMITY, BILATERAL CLINICAL INFORMATION: Elevated d-dimer. COMPARISON: None available. TECHNIQUE: Color-flow triplex imaging with spectral analysis and compression Doppler were performed on the bilateral lower extremities. FINDINGS: Respiratory variation, normal compression and augmented flow are noted throughout the bilateral lower extremities. The visualized common femoral vein, superficial femoral vein, profunda femoral vein, popliteal vein and midcalf peroneal and posterior tibial venous segments show no evidence of deep venous thrombosis bilaterally. There is no Mills's cyst. US/US venous duplex LE BI IMPRESSION: No evidence of deep venous thrombosis involving the bilateral lower extremities. Electronically signed by: Ghulam Sanchez MD 02/21/2025 07:08 AM EDT
--- NOTE | ~2025-02-11 | XR_ITS ---
CLINICAL HISTORY: dyspnea 1 view chest x-ray Comparison: CR/SR - XR CHEST 1V - 04/01/22 18:33 EDT Findings: Large opacity of the right lung. Normal size heart. No acute fracture. IMPRESSION: Large opacity of the right lung concerning for pneumonia. Chest x-ray follow-up is recommended to confirm resolution. This document has been electronically signed by: Leland Interiano MD on 02/11/2025 18:35:12
--- NOTE | ~2025-02-11 | CT_ITS ---
CLINICAL HISTORY: hypoxia, chest pain CT chest without contrast Comparison: CR - XR CHEST 1V - 02/11/25 17:16 EDT Findings: The heart is normal size. The visualized thyroid and mediastinum are unremarkable. Large consolidation of the right lung with air bronchogram. Additional multiple area of consolidation of the right lung. No pleural effusion. The visualized upper abdomen is unremarkable. No acute fractures. IMPRESSION: Consolidations of the right lung concerning for multifocal pneumonia. This document has been electronically signed by: Leland Interiano MD on 02/11/2025 20:23:40
--- NOTE | ~2025-02-11 | IR_ITS ---
PROCEDURE: IR INSERTION OF TUNNEL CATHETER CLINICAL INFORMATION: Kidney failure. Permacath insertion. FINDINGS/ IR/IR cvc insert central tunnel IMPRESSION: Left permacath was inserted under fluoroscopy and ultrasound guidance and was dictated with ultrasound report. Electronically signed by: Ghulam Sanchez MD 02/28/2025 08:32 AM EDT
--- NOTE | ~2025-02-11 | XR_ITS ---
EXAMINATION: XR CHEST CLINICAL INFORMATION: vq scan COMPARISON: 02/16/2025. TECHNIQUE: Frontal view of the chest was obtained. FINDINGS: Right IJ central venous catheter in place, tip terminating in the superior SVC at the junction of the brachiocephalic veins. The cardiac, hilar, and mediastinal contours are normal. There is extensive lobar consolidation within the right upper lobe, and lesser consolidative opacities in the right lower lobe. Findings appear worsened from 02/16/2025. The left lung remains clear. XR/XR chest 1V IMPRESSION: 1. Right central venous catheter in place, tip at the junction of the brachiocephalic veins within the superior SVC. 2. Extensive consolidative opacity throughout the right upper lung, with lesser consolidation right lower lung. Findings are worsening. Electronically signed by: Dutch Gutierrez MD 02/18/2025 04:02 PM EDT
--- NOTE | 2025-02-11 16:46 | ECG_ITS ---
Test Reason : SOB Blood Pressure : */* mmHG Vent. Rate : 111 BPM Atrial Rate : 111 BPM P-R Int : 124 ms QRS Dur : 100 ms QT Int : 340 ms P-R-T Axes : 15 63 48 degrees QTcB Int : 462 ms Sinus tachycardia Otherwise normal ECG When compared with ECG of 01-Apr-2022 19:18, No significant change was found Referred By: Gail Merida Electronically Signed By: SANJIV MORIN MD
[2025-02-11] MEDS: levalbuterol HCL 3.75 MG, Ipratropium Bromide 0.5 MG INHALE (17:03)
[2025-02-11] MEDS: Hydrocortisone Sod Succ/PF 100 MG VIAL IVPUSH (17:27)
[2025-02-11] MEDS: Lactated Ringers 1,000 ML 999 ML IV ×2 (17:28→18:51)
--- NOTE | 2025-02-11 17:28 | PC.NURSE ---
pt a difficult poke, multiple attempts made by this RN, Matty RN and PCT salome. Delia TAVARES to attempt U/S guided IV to obtain blood culture 2nd set and additional labs
--- NOTE | 2025-02-11 17:36 | ED.SOB ---
HPI - SOB/Dyspnea General Chief Complaint: General Medical Stated Complaint: weakness, cough, sob, ?sepsis per ems Time Seen by Provider: 02/11/25 16:35 Source: patient, family and old records reviewed Mode of arrival: EMS Limitations: other (resp distress) History of Present Illness ED Provider: WALI HPI Narrative: 29 yo female with PMH of lupus with hx of pericardial effusion, nephritis, HTN, anemia, anxiety, she is on 10mg prednisone a day she c/o 2 days of n/v/d poor PO intake, dyspnea, chest wall pain throughout entire chest, sore throat and cough. She denies any sick contacts or travel hx. She is a poor historian. I asked the mom who is also at bedside what is going on and she does note I would have to ask her daughter. On arrival bedside ECHO done - given sepsis protocol and high flow O2, stress dose steroids ordered. MD elicited complaint: shortness of breath, cough and chest pain Onset (ago): day(s) (2) Context: recent illness Timing: progressively worsening Severity: severe Exacerbating factors: lying flat, exertion and coughing Relieving factors: oxygen, rest, bronchodilators and upright position Known history of: other Associated symptoms: chest pain, pain with inspiration, cough, wheezing, nausea/vomiting and lightheadedness Treatment prior to arrival: oxygen Related Data Home Medications ?Medication ?Instructions ?Recorded ?Confirmed acetaminophen 500 mg tablet 1 - 2 tab PO QD-TID PRN Pain 03/19/22 04/19/24 duloxetine 30 mg capsule,delayed 60 mg PO DAILY 04/01/23 04/19/24 release trazodone 50 mg tablet 50 mg PO BEDTIME 12/09/23 04/19/24 voclosporin 7.9 mg capsule 23.7 mg PO BID 04/19/24 04/19/24 (Lupkynis) Previous Rx's ?Medication ?Instructions ?Recorded amlodipine 10 mg tablet 10 mg PO DAILY #30 tabs 03/26/22 labetalol 100 mg tablet 100 mg PO TID #90 tabs 03/26/22 multivitamin 1 tab PO DAILY #30 tabs 07/08/22 cyclobenzaprine 10 mg tablet See Rx Instructions .Route 10/30/22 .COMPLEX #30 tabs hydroxychloroquine 200 mg tablet 300 mg (1.5 x 200 mg) PO DAILY #45 05/15/23 tabs Magic Mouthwash 5 ml PO QID PRN mouth pain #240 mL 04/19/24 Diphen/Lido/Antacid 1:1:1 240 mL suspension prednisone 10 mg tablet 10 mg PO DAILY #30 tabs 08/15/24 Allergies Allergy/AdvReac Type Severity Reaction Status Date / Time mycophenolate mofetil AdvReac Intermediate GI upset Verified 02/11/25 16:49 gabapentin AdvReac Unknown Hives Verified 02/11/25 16:49 Review of Systems Review of Systems: Constitutional : pos Fever, pos Chills ENT/Mouth : pos sore throat, No Rhinorrhea, No Swallowing Difficulty Eyes: No Eye Pain, No Swelling, No Redness Cardiovascular : pos Chest Pain, positive SOB, No Orthopnea, no Edema Respiratory : pos Cough, No Sputum, No Wheezing, positive dyspnea Gastrointestinal : pos Nausea, pos Vomiting, pos Diarrhea, No abdominal Pain, No Hematochezia, No Melena Genitourinary : No Dysuria, No Urinary Frequency, No Hematuria Musculoskeletal : No joint pain, No Myalgias Skin : No Skin Lesions, No rash Neuro : pos Weakness, No Numbness, pos Dizziness, No Headache Psych : No Anxiety/Panic, No Depression All other systems reviewed and are negative PMFSH Past Medical History Attestation statement: The following information was validated with the patient. Source: old records reviewed Medical History Lupus nephritis Pericardial effusion Essential hypertension Rash Acute on chronic anemia Abnormal uterine bleeding Hypertensive urgency Anemia Depression Anxiety Fibromyalgia Lupus Surgical History Hx of hernia repair Family History Family History Mother Hypertension Type 2 diabetes mellitus Lupus Arthritis Maternal Grandmother Hypertension Type 2 diabetes mellitus Arthritis Social History Social History Household Members: Family Housing: Apartment Do you presently have visiting nurse or other home services: No Alcohol intake: former Comment: achy-lupus exacerbation Patient Tobacco Use Status: Never used Tobacco Cigarette Packs Per Day: 0.5 Cigarettes Per Day: 10.0 Years Smoked: 7 Smoked in Last 30 Days: Yes Use of substances other than those prescribed or required for medical reasons: Yes Substance Use Type: Marijuana Advance Directives: Yes Advance Directives on File: Yes Advance Directives Date on File: 04/03/22 Do you have a plan to hurt others: No Plan Patient : No service: No Current occupational status: disabled Physical Exam Vital Signs: Vital Signs: Last Vital Signs Temp 97.5 F 02/11/25 19:26 Pulse 120 H 02/11/25 19:26 Resp 34 H 02/11/25 19:26 BP 147/80 H 02/11/25 19:26 Pulse Ox 94 02/11/25 19:26 O2 Del Method High Flow Nasal C annula 02/11/25 19:26 O2 Flow Rate 45 02/11/25 18:41 Oxygen Flow Rate 2 02/11/25 16:47 BMI result Body Mass Index 19.9 Appearance: Alert. Oriented X3. Moderate acute distress. Eyes: Pupils equal, round and reactive to light. ENT: Pharynx very dry with shiny dry tongue and areas of inflammation but no abscess Neck: Normal inspection. Neck supple. CVS: tachycardic heart rate and rhythm. Pulses normal. Chest: diffuse chest wall ttp throughout Respiratory: Moderate respiratory distress labored and one to two word sentences Breath sounds coarse throughout with rhonchi and very diminished R lower lobe. Abdomen: Soft and nontender. Skin: Skin warm and dry. yellowish jaundice skin color. poor skin turgor. Extremities: No lower extremity edema. Neuro: Oriented X 3. No motor deficit. No sensory deficit. CN2-12 intact Medications Administered Generic Name Dose Route Start Last Admin Trade Name Freq PRN Reason Stop Dose Admin Calcium Gluconate 2 gm in 100 mls @ 50 mls/hr 02/11/25 18:26 02/11/25 18:45 Calcium Gluconate IV 02/11/25 20:25 50 mls/hr ONCE ONE Administration Discontinued Medications Generic Name Dose Route Start Last Admin Trade Name Freq PRN Reason Stop Dose Admin Ceftriaxone Sodium 2 gm 02/11/25 16:48 02/11/25 17:48 Ceftriaxone Sodium 2 Gm Vial IVPUSH 02/11/25 16:49 2 gm ONCE ONE Administration Levalbuterol HCl 3.75 mg/ 0 mg 02/11/25 16:58 02/11/25 17:03 Ipratropium [place] 0.5 mg INHALE 02/11/25 16:59 1 dose ONCE ONE Administration Dextrose 25 gm 02/11/25 18:29 02/11/25 18:48 Dextrose 50 % 25 Gm/50 Ml Syringe IVPUSH 02/11/25 18:30 25 gm ONCE ONE Administration Fentanyl 50 mcg 02/11/25 18:24 02/11/25 18:45 Fentanyl Citrate/Pf 100 Mcg/2 Ml Vial IVPUSH 02/11/25 18:25 50 mcg ONCE ONE Administration Protocol Hydrocortisone Sodium Succinate 100 mg 02/11/25 16:49 02/11/25 17:27 Hydrocortisone Sod Succ/Pf 100 Mg Vial IVPUSH 02/11/25 16:50 100 mg ONCE ONE Administration Lactated Ringer's 1,000 mls @ 999 mls/hr 02/11/25 16:49 02/11/25 18:16 Lr IV 02/11/25 17:49 Infused .Q1H1M ONE Infusion Doxycycline Hyclate 100 mg/ 250 mls @ 166.67 mls/hr 02/11/25 17:25 02/11/25 17:54 Sodium Chloride IV 02/11/25 18:54 166.67 mls/hr ONCE ONE Administration Lactated Ringer's 1,000 mls @ 999 mls/hr 02/11/25 18:26 02/11/25 18:51 Lr IV 02/11/25 19:26 999 mls/hr .Q1H1M ONE Administration Sodium Bicarbonate 50 meq 02/11/25 18:26 02/11/25 18:48 Sodium Bicarbonate 8.4% 50 Meq/50 Ml Syringe IVPUSH 02/11/25 18:27 50 meq ONCE ONE Administration Sodium Zirconium Cyclosilicate 5 gm 02/11/25 18:26 02/11/25 18:49 Sodium Zirconium Cyclosilicate 5 Gm Powd.Pack PO 02/11/25 18:27 5 gm ONCE ONE Administration Medical Decision Making Medical Decision Making MDM Narrative: 29 yo female with PMH of lupus with hx of pericardial effusion, nephritis, HTN, anemia, anxiety here with c/o dyspnea, fevers, viral like illness and shortness of breath on arrival she is not well looking in resp distress. I have ordered oneill labs, sepsis protocol, stress dose steroids, empiric abx, stat bedside ECHO - will start on CAP coverage and obtain CTA:PE. She will also need high flow at this time. She is responding to it. Differential Diagnosis Differential Diagnoses: The differential diagnosis associated with the presentation includes pneumonia, VTE, effusion, pleurisy, viral syndrome Admission/Observation Consideration of admission/observation: Escalation of care including admission/observation considered will admit to ICU Consult Healthcare Provider Dr. Xu ponce and will admit Sin to see and admit patient Lab Data MDM Lab Attestation statement: I reviewed the patient's lab results. 02/11/25 17:44 02/11/25 17:44 Labs: Lab Results 02/11/25 02/11/25 02/11/25 Range/Units 17:17 17:44 18:41 WBC 15.0 H (4.8-10.8) X10*3/uL RBC 2.55 L D (4.20-5.50) X10*6/uL Hgb 7.0 L* D (12.0-16.0) g/dl Hct 19.5 L* D (37.0-47.0) % MCV 76.5 L (80.0-98.0) fL MCH 27.5 (27.0-33.0) pg MCHC 35.9 H (31.0-35.0) g/dl RDW 16.1 H (11.0-16.0) % Plt Count 394 D (160-400) X10*3/uL MPV 11.9 (9.4-12.3) fL Immature Gran % (Auto) Cancelled Neut % (Auto) Cancelled Lymph % (Auto) Cancelled [place] % (Auto) Cancelled Eos % (Auto) Cancelled Baso % (Auto) Cancelled Lymph # (Auto) Cancelled [place] # (Auto) Cancelled Eos # (Auto) Cancelled Baso # (Auto) Cancelled Abs Immat Gran (auto) Cancelled Absolute Neuts (auto) Cancelled Absolute Nucleated RBC 0.260 H (0.0-0.012) X10*3/uL Nucleated RBC % (auto) 1.7 H (0.0-0.2) /100WBC Neutrophils % (Manual) 73 (45-73) % Band Neutrophils % 9 H (3-5) % Lymphocytes % (Manual) 7 L (20-40) % Monocytes % (Manual) 7 (2-11) % Metamyelocytes % 1 % Myelocytes % 1 % Promyelocytes % 1 % Blast Cells % (Manual) 1 % Abs Neuts (Manual) 12.3 H (2.0-8.3) X10*3/uL Lymphocytes # (Manual) 1.1 L (1.2-4.9) X10*3/uL Monocytes # (Manual) 1.1 (0.1-1.2) X10*3/uL Metamyelocytes # 0.2 X10*3/uL Myelocytes # 0.2 X10*/uL Promyelocytes # 0.2 X10*3/uL Blast Cells # 0.2 X10*3/uL Nucleated RBCs 4 H (0-0) /100WBC Toxic Granulation PRESENT Dohle Bodies PRESENT Platelet Estimate NORMAL (NORMAL) Large Platelets PRESENT Giant Platelets PRESENT Plt Morphology Comment AGRANULAR RBC Morphology NOTED Polychromasia 1+ (0-2) /OIF Hypochromasia 1+ (5-14) /OIF Microcytosis 1+ (5-14) /OIF Spherocytes 1+ (0-2) /OIF Target Cells 1+ (5-14) /OIF Tear Drop Cells 1+ (0-2) /OIF Bambi Cells 3+ (>5) /OIF Schistocytes 2+ (3-5) /OIF VBG pH (7.32-7.43) VBG pCO2 mmHg VBG pO2 mmHg VBG HCO3 (22-26) mmol/L VBG O2 Saturation VBG Base Excess mmol/L Sodium 136 (135-145) mmol/L Potassium 6.1 H* D (3.3-5.1) mmol/L Chloride 104 (96-108) mmol/L Carbon Dioxide 10 L* D (22-29) mmol/L Anion Gap 28 H (12-20) BUN > 125 H (9-16) mg/dL Creatinine 11.96 H* (0.5-1.4) mg/dL Estim Creat Clear Calc 6.4 Estimated GFR 4 Random Glucose 58 L* (60-115) mg/dL Lactic Acid 2.6 H* (0.5-2.0) mmol/L Calcium 8.6 D (8.4-10.2) mg/dL Magnesium 3.9 H* (1.6-2.6) mg/dL Total Bilirubin 3.3 H (0.0-1.0) mg/dL Direct Bilirubin 2.6 H (0.0-0.5) mg/dL AST 111 H (5-31) U/L ALT 42 H (0-31) U/L Alkaline Phosphatase 146 H (39-117) U/L Lactate Dehydrogenase 715 H (122-220) U/L Total Creatine Kinase 583 H (26-140) U/L Troponin I High Sens 7.5 (<3.5-17.0) ng/L C-Reactive Protein 36.82 H (< or = 0.50) mg/dL B-Natriuretic Peptide 364 H (<100) pg/mL Total Protein 6.6 (6.5-8.0) g/dL Albumin 2.4 L (3.5-5.0) g/dL Lipase < 4 L (8-78) U/L Procalcitonin > 100.00 ng/mL Beta HCG, Quant < 2 mIU/mL Influenza Type A (PCR) NEGATIVE (Negative) Influenza Type B (PCR) NEGATIVE (Negative) RSV RNA Qual (PCR) NEGATIVE (Negative) SARS-CoV-2 RNA (RT-PCR) NEGATIVE (Negative) Blood Type A Positive Crossmatch See Detail 02/11/25 Range/Units 18:50 WBC (4.8-10.8) X10*3/uL RBC (4.20-5.50) X10*6/uL Hgb (12.0-16.0) g/dl Hct (37.0-47.0) % MCV (80.0-98.0) fL MCH (27.0-33.0) pg MCHC (31.0-35.0) g/dl RDW (11.0-16.0) % Plt Count (160-400) X10*3/uL MPV (9.4-12.3) fL Immature Gran % (Auto) Neut % (Auto) Lymph % (Auto) [place] % (Auto) Eos % (Auto) Baso % (Auto) Lymph # (Auto) [place] # (Auto) Eos # (Auto) Baso # (Auto) Abs Immat Gran (auto) Absolute Neuts (auto) Absolute Nucleated RBC (0.0-0.012) X10*3/uL Nucleated RBC % (auto) (0.0-0.2) /100WBC Neutrophils % (Manual) (45-73) % Band Neutrophils % (3-5) % Lymphocytes % (Manual) (20-40) % Monocytes % (Manual) (2-11) % Metamyelocytes % % Myelocytes % % Promyelocytes % % Blast Cells % (Manual) % Abs Neuts (Manual) (2.0-8.3) X10*3/uL Lymphocytes # (Manual) (1.2-4.9) X10*3/uL Monocytes # (Manual) (0.1-1.2) X10*3/uL Metamyelocytes # X10*3/uL Myelocytes # X10*/uL Promyelocytes # X10*3/uL Blast Cells # X10*3/uL Nucleated RBCs (0-0) /100WBC Toxic Granulation Dohle Bodies Platelet Estimate (NORMAL) Large Platelets Giant Platelets Plt Morphology Comment RBC Morphology Polychromasia /OIF Hypochromasia /OIF Microcytosis /OIF Spherocytes /OIF Target Cells /OIF Tear Drop Cells /OIF Bambi Cells /OIF Schistocytes /OIF VBG pH 7.34 (7.32-7.43) VBG pCO2 17 mmHg VBG pO2 91 mmHg VBG HCO3 9 L (22-26) mmol/L VBG O2 Saturation TNP VBG Base Excess -14.3 mmol/L Sodium (135-145) mmol/L Potassium (3.3-5.1) mmol/L Chloride (96-108) mmol/L Carbon Dioxide (22-29) mmol/L Anion Gap (12-20) BUN (9-16) mg/dL Creatinine (0.5-1.4) mg/dL Estim Creat Clear Calc Estimated GFR Random Glucose (60-115) mg/dL Lactic Acid (0.5-2.0) mmol/L Calcium (8.4-10.2) mg/dL Magnesium (1.6-2.6) mg/dL Total Bilirubin (0.0-1.0) mg/dL Direct Bilirubin (0.0-0.5) mg/dL AST (5-31) U/L ALT (0-31) U/L Alkaline Phosphatase (39-117) U/L Lactate Dehydrogenase (122-220) U/L Total Creatine Kinase (26-140) U/L Troponin I High Sens (<3.5-17.0) ng/L C-Reactive Protein (< or = 0.50) mg/dL B-Natriuretic Peptide (<100) pg/mL Total Protein (6.5-8.0) g/dL Albumin (3.5-5.0) g/dL Lipase (8-78) U/L Procalcitonin ng/mL Beta HCG, Quant mIU/mL Influenza Type A (PCR) (Negative) Influenza Type B (PCR) (Negative) RSV RNA Qual (PCR) (Negative) SARS-CoV-2 RNA (RT-PCR) (Negative) Blood Type Crossmatch Independent Interpretation I performed an independent interpretation of an: EKG, Plain X-Ray (dense consolidation RML and RUL) and CT Scan (dense R sided pneumonia) Interpretation: Rate: 111 Rhythm: sinus tach [place]: normal Normal P waves. Normal SHERRIE. Normal QRS complex. ST T wave : no ROLF, t waves are tall ant leads qTC: 462 prior studies: no ROLF The study has been interpreted contemporaneously by me. . Radiology Impression Discussion of test interpretation with radiology: I have reviewed the radiologist's reading. Procedures Procedure Narrative Procedure Narrative: EMERGENCY ULTRASOUND INTERPRETATION-Limited Echocardiography DUE TO PATIENT C/O CHEST WALL PAIN I HAD A HARD TIME GETTING WINDOWS? The study reveals:?NO LARGE PERICARDIAL EFFUSION Impression: NO PERICARDIAL EFFUSION Emergent Cardiac for Indication:? Views Used: PLAX, A4, SX, IVC Pericardial Effusion/Tamponade Findings: NONE RV Dilation (> LV diam in 4ch apical):? UNABLE TO VIEW Global LV Fxn: CANNOT ASSESS IVC Dilation and Resp Variation: NORMAL Performed by: WALI Date: 02/11/25 Time: 549PM CPT:82945; Reference Codes? [email or web address].[email or web address] Critical Care Time Critical Care Time Critical Care Time: Yes Total Critical Care Time: 90 Attestation: Time is exclusive of separately billable procedures. Time includes: direct patient care, patient reassessment, coordination of patient care, interpretation of data (laboratory data, pulse oximetry, arterial blood gases and chest xrays), review of patient's medical records, medical consultation and documentation of patient care. Procedures excluded from critical care time: central intravenous line placement and electrocardiography. I attest to this time spent taking care of the patient Discharge Plan Discharge Clinical Impression: Pneumonia, Acidosis, lactic, Acute on chronic anemia, Acute kidney injury superimposed on chronic kidney disease, Hypoxia, Acidosis Patient Disposition: Admitted As Inpatient Prescriptions: No Action cyclobenzaprine 10 mg tablet See Rx Instructions .ROUTE .COMPLEX Qty: 30 1RF Dose Instruction: TAKE 1 TO 2 TABLETS ORALLY BEDTIME NEEDED FOR NIGHT TIME PAINS Rx Instructions: TAKE 1 TO 2 TABLETS ORALLY BEDTIME NEEDED FOR NIGHT TIME PAINS hydroxychloroquine 200 mg tablet 300 mg PO DAILY Qty: 45 1RF prednisone 10 mg tablet 10 mg PO DAILY Qty: 30 1RF acetaminophen 500 mg tablet 1 - 2 tab PO QD-TID PRN (Reason: Pain) amlodipine 10 mg Tablet 10 mg PO DAILY Qty: 30 0RF Protocol: Hold for SBP< HOLD for SBP < : 90 labetalol 100 mg Tablet 100 mg PO TID Qty: 90 0RF Protocol: Hold for SBP/HR < HOLD for SBP < : 90 HOLD for HR < : 60 multivitamin Tablet 1 tab PO DAILY Qty: 30 5RF duloxetine 30 mg capsule,delayed release(DR/EC) 60 mg PO DAILY trazodone 50 mg tablet 50 mg PO BEDTIME Lupkynis 7.9 mg capsule 23.7 mg PO BID Rx Instructions: must be taken on empty stomach Magic Mouthwash Diphen/Lido/Antacid 1:1:1 240 mL suspension 5 ml PO QID PRN (Reason: mouth pain) Qty: 240 0RF Rx Instructions: Lidocaine Viscous 2 % 80mL; diphenhydramine 12.5 mg/5 mL 80mL; aluminum-mag hydrox-simeth [id number]/5mL 80mL Print Language: Maltese
[2025-02-11] MEDS: cefTRIAXone sodium 2 GM VIAL IVPUSH (17:48)
[2025-02-11 17:51] LABS: Lactic Acid 2.6 mmol/L (0.5-2.0)
[2025-02-11 17:54] LABS: Mean Corpuscular HGB Conc 35.9 g/dl (31.0-35.0); Mean Corpuscular Hemoglobin 27.5 pg (27.0-33.0); Mean Corpuscular Volume 76.5 fL (80.0-98.0); Mean Platelet Volume 11.9 fL (9.4-12.3); Platelet Count 394 X10*3/uL (160-400); Red Blood Count 2.55 X10*6/uL (4.20-5.50); Red Cell Distribution Width 16.1 % (11.0-16.0)
[2025-02-11] MEDS: Doxycycline Hyclate 100 MG in 0.9 % Sodium Chloride 250 ML 166.67 MG IV (17:54)
[2025-02-11 18:07] LABS: NRBC Pct Auto 1.7 /100WBC (0.0-0.2); WBC ABN SCTR FOR CBC 1
[2025-02-11 18:09] LABS: Hematocrit 19.5 % (37.0-47.0)
--- NOTE | 2025-02-11 18:10 | PC.NURSE ---
pt BIBA from home for weakness and productive cough x2 days. pt hs a PmHx of Lupus, Pleural effusions and fibromyalgia. pt presented to [facility] [place] rm 4, hypotensive for EMS at 90/60, tachycardic 110, tachypnic 40 RR, and 88% RA started on 2L NC, pt ET 16. EMS placed a 20G RAC. this RN obtained 1st set of blood cultures. 20G placed to LAC. pt a difficult poke, unable to obtain second second set and other lab work. Delia RN placed u/s guided 20G to L upper arm, obtained remained blood work. IL LR infusing at this time. HR 99, 93% 45% on high flow, 117/51.
[2025-02-11 18:18] LABS: B Type Natriuretic Peptide 364 pg/mL (<100)
[2025-02-11 18:20] LABS: HCG Quantitative < 2 mIU/mL; Troponin-I High Sensitivity 7.5 ng/L (<3.5-17.0)
[2025-02-11 18:27] LABS: Alanine Aminotransferase 42 U/L (0-31); Albumin Level 2.4 g/dL (3.5-5.0); Alkaline Phosphatase 146 U/L (39-117); Anion Gap 28 (12-20); Aspartate Amino Transferase 111 U/L (5-31); Bilirubin Direct 2.6 mg/dL (0.0-0.5); Bilirubin Total 3.3 mg/dL (0.0-1.0); C Reactive Protein 36.82 mg/dL (< or = 0.50); Calcium 8.6 mg/dL (8.4-10.2); Carbon Dioxide 10 mmol/L (22-29); Chloride 104 mmol/L (96-108); Creatinine Clr Calc Pharmacy 6.4; Estimated Glomerular Filt Rate 4; Glucose Random 58 mg/dL (60-115); Lipase < 4 U/L (8-78); Magnesium 3.9 mg/dL (1.6-2.6); Potassium 6.1 mmol/L (3.3-5.1); Sodium 136 mmol/L (135-145); Total Protein 6.6 g/dL (6.5-8.0)
[2025-02-11 18:36] LABS: Influenza A PCR NEGATIVE (Negative); Influenza B PCR NEGATIVE (Negative); Resp Syncy Virus RNA Qual PCR NEGATIVE (Negative); SARS COV2 PCR INHOUSE NEGATIVE (Negative)
[2025-02-11 18:43] LABS: Procalcitonin > 100.00 ng/mL
[2025-02-11] MEDS: Calcium Gluconate/NaCl,Iso-Osm 2 GM/100 ML PLAST..BAG IV (18:45)
[2025-02-11] MEDS: fentaNYL citrate/PF 100 MCG/2 ML VIAL 50 MCG IVPUSH (18:45)
[2025-02-11] MEDS: Dextrose 50 % 25 GM/50 ML SYRINGE IVPUSH (18:48)
[2025-02-11] MEDS: Sodium Bicarbonate 8.4% 50 MEQ/50 ML SYRINGE IVPUSH (18:48)
[2025-02-11] MEDS: Sodium Zirconium Cyclosilicate 5 GM POWD.PACK PO (18:49)
[2025-02-11 18:50] LABS: Lactate Dehydrogenase 715 U/L (122-220)
[2025-02-11 18:54] LABS: VBG Base Excess -14.3 mmol/L; VBG HCO3 9 mmol/L (22-26); VBG pCO2 17 mmHg; VBG pH 7.34 (7.32-7.43); VBG pO2 91 mmHg
[2025-02-11 18:55] LABS: Venous Blood Gas Refer to POC result
[2025-02-11 19:13] LABS: Band Neutrophils Percent 9 % (3-5); Blast Percent 1 %; Lymphocytes Percent Manual 7 % (20-40); Metamyelocytes Percent 1 %; Monocytes Percent Manual 7 % (2-11); Myelocytes Percent 1 %; Neutrophils Percent Manual 73 % (45-73); Nucleated Red Blood Cells 4 /100WBC (0-0); Promyelocytes Percent 1 %; RBC Morphology NOTED
[2025-02-11 19:14] LABS: Microcytosis 1+ (5-14) /OIF; Platelet Estimate NORMAL (NORMAL); Platelet Morphology Comment AGRANULAR
[2025-02-11 19:15] LABS: Giant Platelet PRESENT; Large Platelet PRESENT
[2025-02-11 19:16] LABS: Burr Cells 3+ (>5) /OIF; Schistocytes 2+ (3-5) /OIF; Spherocytes 1+ (0-2) /OIF; Target Cells 1+ (5-14) /OIF; Tear Drop Cells 1+ (0-2) /OIF
[2025-02-11 19:17] LABS: Dohle Bodies PRESENT; Hypochromasia 1+ (5-14) /OIF; Polychromasia 1+ (0-2) /OIF; Toxic Granulation PRESENT
[2025-02-11 19:19] LABS: Blastocytes Absolute 0.2 X10*3/uL; Lymphocytes Absolute Manual 1.1 X10*3/uL (1.2-4.9); Metamyelocytes Absolute 0.2 X10*3/uL; Monocytes Absolute Manual 1.1 X10*3/uL (0.1-1.2); Myelocytes Absolute 0.2 X10*/uL; Neutrophils Absolute Manual 12.3 X10*3/uL (2.0-8.3); Promyelocytes Absolute 0.2 X10*3/uL
[2025-02-11 19:23] LABS: Reflex Lactate? Lactic Acid Added
[2025-02-11 19:47] LABS: Haptoglobin 412 mg/dL (35-250)
--- NOTE | 2025-02-11 19:51 | PC.NURSE ---
verbal report to ICU given
[2025-02-11 20:05] LABS: C Reactive Protein 32.07 mg/dL (< or = 0.50)
[2025-02-11] MEDS: Piperacillin Sodium/Tazobactam 3.375 GM in 0.9 % Sodium Chloride 50 ML IV (20:09)
--- NOTE | 2025-02-11 20:15 | P.HPCC_ITS ---
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 Patient reports 2 days of dyspnea, pleuritic chest pain, cough, fevers, poor p.o. intake, nausea, vomiting and diarrhea.?? In the emergency department temperature 96.6 degrees, tachycardic to 120s, tachypneic to 40s, normotensive, requiring initiation of high-flow nasal cannula. Laboratory data was significant for WBC of 15, hemoglobin 7, hematocrit 19.5, potassium 6.1, serum bicarb 10, anion gap 28, BUN over 125, creatinine 11.96, random glucose 58, lactic 2.6, AST 111, ALT 42, alk phos 146, lactate dehydrogenase 715, CK 583, CRP 36.8, procalcitonin > 100 Venous gas:? 7.34/17/91/9 , base excess -14.3 IMAGING: CHEST CT:? Consistent with right lung multifocal pneumonia, ABDOMINAL CT:? Hepatomegaly, no other acute findings ED COURSE: Patient received 2 L bolus, stress dose hydrocortisone, ceftriaxone 2 g, doxycycline 100 mg, calcium gluconate 2g, Lokelma 5 g, and 1 amp of sodium bicarb Review of Systems 2 Review of Systems: Yes all other systems are reviewed and are negative [facility] Past Medical History Medical History (Updated 02/11/25 @ 23:28 by Ana Thomson NP) Lupus nephritis Pericardial effusion Essential hypertension Rash Acute on chronic anemia Abnormal uterine bleeding Hypertensive urgency Anemia Depression Anxiety Fibromyalgia Lupus Family History Family History Mother Hypertension Type 2 diabetes mellitus Lupus Arthritis Maternal Grandmother Hypertension Type 2 diabetes mellitus Arthritis Surgical History Surgical History Hx of hernia repair Social History Social History Household Members: Spouse and Children Housing: Apartment Do you presently have visiting nurse or other home services: No Alcohol intake: former Comment: achy-lupus exacerbation Patient Tobacco Use Status: Current everyday Tobacco user Tobacco use type: Cigarette Cigarette Packs Per Day: 0.5 Cigarettes Per Day: 10.0 Years Smoked: 7 Smoked in Last 30 Days: Yes Use of substances other than those prescribed or required for medical reasons: Yes Substance Use Type: Marijuana Currently Displaying Signs/Symptoms of Drug Intoxication Withdrawal: No Have you been hit, kicked, punched, or otherwise hurt by someone within the past year? If so, by whom?: No Do you feel safe in your current relationship?: Yes Is there a partner from a previous relationship who is making you feel unsafe now?: No Are you made to feel afraid or neglected: No Advance Directives: Yes Advance Directives on File: Yes Advance Directives Date on File: 04/03/22 Do you have a plan to hurt others: No Plan Recently lost weight without trying: No Patient : No : No Poor oral hygiene: No service: No Current occupational status: disabled Meds Allergies Allergy/AdvReac Type Severity Reaction Status Date / Time mycophenolate mofetil AdvReac Intermediate GI upset Verified 02/11/25 16:49 gabapentin AdvReac Unknown Hives Verified 02/11/25 16:49 Active Medications: Current Medications Calcium Gluconate (Calcium Gluconate) 2 gm in 100 mls @ 50 mls/hr IV ONCE ONE Stop: 02/11/25 20:25 Last Admin: 02/11/25 18:45 Dose: 50 mls/hr Sodium Bicarbonate 150 meq/ (Dextrose) 1,000 mls @ 150 mls/hr IV .[id number] GERARDO Vancomycin HCl (Vancomycin/Ns) 2,000 mg in 500 mls @ 250 mls/hr IV ONCE ONE Stop: 02/11/25 22:13 Pharmacy Consult (Consult Rx Vancomycin Dosing) 1 each MISCELLANE DAILY PRN PRN Reason: Consult order Sodium Chloride (0.9 % Sodium Chloride Flush 3 Ml Syringe) 3 ml IVFLUSH QSHIFT [facility] Physical Exam 2 Vital Signs: Vital Signs: Last Vital Signs Temp 97.5 F 02/11/25 19:26 Pulse 120 H 02/11/25 19:26 Resp 34 H 02/11/25 19:26 BP 147/80 H 02/11/25 19:26 Pulse Ox 94 02/11/25 19:26 O2 Del Method High Flow Nasal C annula 02/11/25 19:26 O2 Flow Rate 45 02/11/25 18:41 Oxygen Flow Rate 2 02/11/25 16:47 BMI result Body Mass Index 19.9 ?General:? Alert oriented x3.? Following all commands. ?HEENT:? Head is normocephalic, atraumatic, pupils equal round reactive to light accommodation bilaterally.? Extraocular movements appear intact.? Buccal mucosa is dry, Neck is supple ?Cardiac:? Sinus tachycardia, Clear S1-S2, no murmurs rubs or gallops. ?Pulmonary:? Crackles at bases. On high-flow nasal cannula ?Abdomen:? ?Abdomen soft, non-tender, non-distended. Normal bowel sounds. No pulsatile mass. No hepatosplenomegaly. ?Musculoskeletal:? Moving all 4 extremities upon request a major joints, there is no crepitus or tenderness.? The strength is 5/5 bilaterally and throughout all 4 extremities.? Gait not assessed at this point. ?Neurologic:? cranial nerves 2-12 are grossly intact.? No focal deficits noted.Motor strength as above.?? ?Skin:? Intact, no lesions, edema, erythema, clubbing or cyanosis.? No ulcers. Vascular:? 2+ pulses upper and lower extremities distally.? Results Labs 02/12/25 05:01 02/12/25 05:01 Labs: Laboratory Results - last 24 hr 02/11/25 02/11/25 02/11/25 17:17 17:44 18:41 MCV 76.5 L MCH 27.5 MCHC 35.9 H RDW 16.1 H Plt Count 394 D MPV 11.9 Immature Gran % (Auto) Cancelled Neut % (Auto) Cancelled Lymph % (Auto) Cancelled Hayes % (Auto) Cancelled Eos % (Auto) Cancelled Baso % (Auto) Cancelled Lymph # (Auto) Cancelled Hayes # (Auto) Cancelled Eos # (Auto) Cancelled Baso # (Auto) Cancelled Abs Immat Gran (auto) Cancelled Absolute Neuts (auto) Cancelled Absolute Nucleated RBC 0.260 H Nucleated RBC % (auto) 1.7 H Neutrophils % (Manual) 73 Band Neutrophils % 9 H Lymphocytes % (Manual) 7 L Monocytes % (Manual) 7 Metamyelocytes % 1 Myelocytes % 1 Promyelocytes % 1 Blast Cells % (Manual) 1 Abs Neuts (Manual) 12.3 H Lymphocytes # (Manual) 1.1 L Monocytes # (Manual) 1.1 Metamyelocytes # 0.2 Myelocytes # 0.2 Promyelocytes # 0.2 Blast Cells # 0.2 Nucleated RBCs 4 H Toxic Granulation PRESENT Dohle Bodies PRESENT Platelet Estimate NORMAL Large Platelets PRESENT Giant Platelets PRESENT Plt Morphology Comment AGRANULAR RBC Morphology NOTED Polychromasia 1+ (0-2) Hypochromasia 1+ (5-14) Microcytosis 1+ (5-14) Spherocytes 1+ (0-2) Target Cells 1+ (5-14) Tear Drop Cells 1+ (0-2) [place] Cells 3+ (>5) Schistocytes 2+ (3-5) VBG pH VBG pCO2 VBG pO2 VBG HCO3 VBG O2 Saturation VBG Base Excess Anion Gap 28 H Estim Creat Clear Calc 6.4 Estimated GFR 4 Random Glucose 58 L* Haptoglobin 412 H Lactic Acid 2.6 H* Calcium 8.6 D Magnesium 3.9 H* Total Bilirubin 3.3 H Direct Bilirubin 2.6 H AST 111 H ALT 42 H Alkaline Phosphatase 146 H Lactate Dehydrogenase 715 H Total Creatine Kinase 583 H Troponin I High Sens 7.5 C-Reactive Protein 36.82 H B-Natriuretic Peptide 364 H Total Protein 6.6 Albumin 2.4 L Lipase < 4 L Procalcitonin > 100.00 Beta HCG, Quant < 2 Influenza Type A (PCR) NEGATIVE Influenza Type B (PCR) NEGATIVE RSV RNA Qual (PCR) NEGATIVE SARS-CoV-2 RNA (RT-PCR) NEGATIVE Blood Type A Positive Antibody Screen NEGATIVE Crossmatch See Detail 02/11/25 02/11/25 18:50 19:41 MCV MCH MCHC RDW Plt Count MPV Immature Gran % (Auto) Neut % (Auto) Lymph % (Auto) Hayes % (Auto) Eos % (Auto) Baso % (Auto) Lymph # (Auto) Hayes # (Auto) Eos # (Auto) Baso # (Auto) Abs Immat Gran (auto) Absolute Neuts (auto) Absolute Nucleated RBC Nucleated RBC % (auto) Neutrophils % (Manual) Band Neutrophils % Lymphocytes % (Manual) Monocytes % (Manual) Metamyelocytes % Myelocytes % Promyelocytes % Blast Cells % (Manual) Abs Neuts (Manual) Lymphocytes # (Manual) Monocytes # (Manual) Metamyelocytes # Myelocytes # Promyelocytes # Blast Cells # Nucleated RBCs Toxic Granulation Dohle Bodies Platelet Estimate Large Platelets Giant Platelets Plt Morphology Comment RBC Morphology Polychromasia Hypochromasia Microcytosis Spherocytes Target Cells Tear Drop Cells Bambi Cells Schistocytes VBG pH 7.34 VBG pCO2 17 VBG pO2 91 VBG HCO3 9 L VBG O2 Saturation TNP VBG Base Excess -14.3 Anion Gap Estim Creat Clear Calc Estimated GFR Random Glucose Haptoglobin Lactic Acid Calcium Magnesium Total Bilirubin Direct Bilirubin AST ALT Alkaline Phosphatase Lactate Dehydrogenase Total Creatine Kinase Troponin I High Sens C-Reactive Protein 32.07 H B-Natriuretic Peptide Total Protein Albumin Lipase Procalcitonin Beta HCG, Quant Influenza Type A (PCR) Influenza Type B (PCR) RSV RNA Qual (PCR) SARS-CoV-2 RNA (RT-PCR) Blood Type Antibody Screen Crossmatch Assessment and Plan (1) Systemic lupus erythematosus: Qualifiers: Systemic lupus erythematosus organ involvement: glomerular disease S ystemic lupus erythematosus type: other Qualified Code(s): M32.14 - Glomerular disease in systemic lupus erythematosus Status: Acute (2) Lupus nephritis: Status: Acute (3) Acute renal failure (ARF): Status: Acute (4) Severe sepsis: Status: Acute (5) Lupus hepatitis: Status: Acute (6) Right lower lobe pneumonia: Status: Acute (7) Hypoxia: Status: Acute (8) Acute on chronic anemia: Status: Acute Plan 29-year-old female with a past medical history of lupus complicated by lupus nephritis on chronic steroids, history of pericardial effusion, hypertension, anemia, fibromyalgia, anxiety and depression admitted to ICU for management of lupus nephritis/severe sepsis from right lobe pneumonia Plan: Neuro: No acute issues? Cardiac:?? Severe Sepsis lactic elevated to 3.9, procalcitonin >100 source is likely from right lobe pneumonia. ?No evidence of septic shock patient is normotensive. Received appropriate fluid resuscitation, ceftriaxone/doxycycline in the emergency department.? Also received stress dose hydrocortisone will broaden antibiotic coverage.? Underlying history of hypertension:? On labetalol 100 mg and amlodipine 10 mg at home, we will hold for now. Pulmonary:?? Acute respiratory failure- significant amount tachypnea, requiring high-flow nasal cannula. ?Chest CT consistent with right lung multifocal pneumonia.? Wean off supplemental oxygenation as tolerated.? Continue antibiotics Rheumatology: ? Lupus nephritis: ?Patient does have history of lupus nephritis in the past, chronically on 10 mg of prednisone daily. ?Patient acute renal failure now, CRP is elevated we will obtain REN/titer panel, antibodies test, and complement C3/C4. Renal:? Acute renal failure-? nonoliguric, ?serum bicarb 10, baseline creatinine 0.96 ? 1.11, creatinine today 11.96 likely from lupus ?nephritis. ?Patient's potassium was 6.1, improving to 5.5 after Lokelma. ?Still making urine, and normotensive. ?We will give bicarb drip x1. ?Continue to trend renal indices and urine outpu Endo:? No acute issues.?? GI:?? Transaminitis-? likely from lupus hepatitis: ?Will obtain coags. Heme/Onc:? Anemia: ?H&H 04/02.5, no clear source of bleed. ?Likely caused by lupus nephritis. ?We will transfuse 1 unit. ? ID: ? Severe sepsis from right lobe pneumonia: ?Blood cultures obtained in the emergency department, was covered with ceftriaxone/doxycycline. ?We will broaden coverage with Zosyn and vancomycin. ?Respiratory panel/ MRSA/strep pneumonia pending. Follow-up blood cultures. Psych:? No acute issues. Miscellaneous:? No acute issues. Prophylaxis: ?Pneumonic boots due to anemia CODE:? FULL CODE? ?Case discussed with attending Dr Mcnair ?Critical care time: x60 min of critical care time?
[2025-02-11 20:17] LABS: ~Lactic Acid-LAB USE ONLY 3.9 mmol/L (0.5-2.0)
[2025-02-11] MEDS: Sodium Bicarbonate 8.4% 150 MEQ in Dextrose 5 % 850 ML IV (20:25)
[2025-02-11 20:42] LABS: Glucose, Whole Blood 99 mg/dL (60-115)
[2025-02-11 20:51] LABS: Venous Blood Gas Refer to POC result
[2025-02-11 20:53] LABS: VBG Base Excess -12.4 mmol/L; VBG HCO3 11 mmol/L (22-26); VBG pCO2 21 mmHg; VBG pH 7.34 (7.32-7.43); VBG pO2 96 mmHg
[2025-02-11] MEDS: HYDROmorphone HCl 1 MG/ML SYRINGE IVPUSH (20:55)
[2025-02-11 21:07] LABS: Glucose, Whole Blood 120 mg/dL (60-115)
[2025-02-11 21:25] LABS: Appearance Urine Cloudy; Color Urine Dark Yellow; Glucose Urine UA Negative (Negative); Leukocyte Esterase Urine Trace (Negative); Nitrite Urine Negative (Negative); Specific Gravity - Urine >= 1.030 (1.005-1.025); UMIC TRIGGER UACC YES; Urine Blood Trace (Negative); Urine Ketones Trace mg/dL (Negative); Urine Protein >=1000 (4+) mg/dL (Neg-Trace)
[2025-02-11] MEDS: methylPREDNISolone Sod Succ 40 MG/ML VIAL IVPUSH (21:38)
--- NOTE | 2025-02-11 21:43 | PHA.MEDREC ---
Addendum entered by Mitch [facility] 02/11/25 21:55: med rec reviewed Original Note: Pharmacy Consult ? Medication Reconciliation Pharmacy has completed the medication reconciliation. Got a list of medications the pt takes at home from pt mother. Pt mother was not sure the last time the pt had taken her medications and when I asked more about some medications (Duloxetine 30 mg caps, Hydroxychloroquine 200mg and Voclosporin 7.9mg tabs) pt mother stated the pt gets all her medications filled at [facility] on [address] as far as she knows and what states family read off Rx Bottles when she spoke with them on the phone.
[2025-02-11 21:47] LABS: Reflex Lactate? 2 Y
[2025-02-11 21:49] LABS: Bacteria Urine Trace (None Seen); Hyaline Casts Urine >20 /LPF (0-2); WBC Urine 0-5 /HPF (0-5)
[2025-02-11] MEDS: vancomycin HCL 1,500 MG in 0.9 % Sodium Chloride 500 ML 333.33 MG IV (21:49)
--- NOTE | 2025-02-11 22:06 | PHA.PROG ---
Admission Date/Time: February 11, 2025 19:41 Indication: RESPIRATORY INFECTION Weight in k kg Adjusted body weight in Kg: Serum Creatinine - Last 168 Hours 02/11/25 17:44 Creatinine 11.96 H* Estimated CrCl and GFR - Last 168 Hours 02/11/25 17:44 Estim Creat Clear Calc 6.4 Estimated GFR 4 Vancomycin Loading Dose: 1500 MG Current Vancomycin Dosing Regimen: DOSING PER LEVEL Vancomycin Monitoring using AUC goal of 400 - 600 range with trough as surrogate marker: Date and Time for next Vancomycin Level to be drawn: Pharmacist Comments on Vancomycin Plan: Vancomycin dosing will take advantage of [employer] as a clinical decision support tool that uses Bayesian modeling to calculate individual patient's pharmacokinetic parameters and forecast the patient's drug concentration time course with the target goal AUC 24 range of 400 - 600 mg/L/hr.
[2025-02-11 22:08] LABS: Erythrocyte Sedimentation Rate > 140 MM/HR (0-20)
[2025-02-11 22:29] LABS: Anion Gap 27 (12-20); Calcium 8.4 mg/dL (8.4-10.2); Carbon Dioxide 13 mmol/L (22-29); Chloride 104 mmol/L (96-108); Estimated Glomerular Filt Rate 4; Glucose Random 124 mg/dL (60-115); Magnesium 3.2 mg/dL (1.6-2.6); Phosphorus 7.4 mg/dL (2.7-4.5); Potassium 5.5 mmol/L (3.3-5.1); Sodium 138 mmol/L (135-145); ~Lactic Acid-LAB USE ONLY 3.2 mmol/L (0.5-2.0)
[2025-02-11 22:37] LABS: Amphetamine Screen Urine Not Detected (Not Detect); Barbiturates, Urine Not Detected (Not Detect); Benzodiazepines Screen Urine Not Detected (Not Detect); Buprenorphine Scr Not Detected (Not Detect); Cannabinoid Screen Urine POSITIVE (Not Detect); Cocaine Screen Urine Not Detected (Not Detect); Fentanyl, urine POSITIVE (Not Detect); Methadone Screen, Urine Not Detected (Not Detect); Opiate Screen Urine POSITIVE (Not Detect); Oxycodone Screen Urine Not Detected (Not Detect); Phencyclidine Screen Urine Not Detected (Not Detect)
[2025-02-11] MEDS: HYDROmorphone HCl 2 MG/ML VIAL IVPUSH (22:54)
[2025-02-11 22:59] LABS: Blood Urea Nitrogen 171 mg/dL (9-16)
[2025-02-11] MEDS: Midazolam HCl 2 MG/2 ML VIAL 1 MG IVPUSH (23:50)
[2025-02-12] VITALS (34 sets, daily range): BP systolic 114–189; BP diastolic 53–113; PULSE 103–143; RESP 18–41; TEMP 30–38.3; O2SAT 92–98
[2025-02-12] MEDS: HYDROmorphone HCl 2 MG/ML VIAL IVPUSH ×4 (01:05→19:59)
[2025-02-12] MEDS: Piperacillin Sodium/Tazobactam 2.25 GM in 0.9 % Sodium Chloride 50 ML IV ×3 (04:09→19:58)
[2025-02-12] MEDS: Sodium Bicarbonate 8.4% 150 MEQ in Dextrose 5 % 850 ML 100 MEQ IV (04:10)
[2025-02-12] MEDS: methylPREDNISolone Sod Succ 40 MG/ML VIAL IVPUSH ×3 (05:00→20:46)
[2025-02-12 05:04] LABS: VBG Base Excess -4.6 mmol/L; VBG HCO3 17 mmol/L (22-26); VBG pCO2 24 mmHg; VBG pH 7.47 (7.32-7.43); VBG pO2 102 mmHg
[2025-02-12 05:20] LABS: Hematocrit 21.1 % (37.0-47.0); Hemoglobin 7.7 g/dl (12.0-16.0); Mean Corpuscular HGB Conc 36.5 g/dl (31.0-35.0); Mean Corpuscular Hemoglobin 27.9 pg (27.0-33.0); Mean Corpuscular Volume 76.4 fL (80.0-98.0); Mean Platelet Volume 10.2 fL (9.4-12.3); NRBC Pct Auto 0.9 /100WBC (0.0-0.2); Platelet Count 295 X10*3/uL (160-400); Red Blood Count 2.76 X10*6/uL (4.20-5.50); Red Cell Distribution Width 16.9 % (11.0-16.0); WBC ABN SCTR FOR CBC 1
[2025-02-12 05:21] LABS: White Blood Count 23.3 X10*3/uL (4.8-10.8)
[2025-02-12 05:27] LABS: INTERNATIONAL NORM RATIO 1.4 (0.9-1.1); Prothrombin Time 16.2 SEC (10.9-12.4)
[2025-02-12 05:46] LABS: Atypical Lymph Absolute Manual 0.2 x10*3/uL; Atypical Lymphs Percent Manual 1 % (0-6); Band Neutrophils Percent 19 % (3-5); Lymphocytes Absolute Manual 0.9 X10*3/uL (1.2-4.9); Lymphocytes Percent Manual 4 % (20-40); Metamyelocytes Absolute 0.7 X10*3/uL; Metamyelocytes Percent 3 %; Monocytes Absolute Manual 1.6 X10*3/uL (0.1-1.2); Monocytes Percent Manual 7 % (2-11); Myelocytes Absolute 0.2 X10*/uL; Myelocytes Percent 1 %; Neutrophils Absolute Manual 19.6 X10*3/uL (2.0-8.3); Neutrophils Percent Manual 65 % (45-73); Nucleated Red Blood Cells 4 /100WBC (0-0)
[2025-02-12 05:48] LABS: Acanthocytes 2+ (3-5) /OIF; Burr Cells 2+ (3-5) /OIF; Dohle Bodies PRESENT; Microcytosis 1+ (5-14) /OIF; Platelet Estimate NORMAL (NORMAL); Platelet Morphology Comment NORMAL; Polychromasia 1+ (0-2) /OIF; RBC Morphology NOTED; Schistocytes 2+ (3-5) /OIF; Spherocytes 2+ (3-5) /OIF; Target Cells 1+ (5-14) /OIF; Toxic Granulation PRESENT
[2025-02-12 05:50] LABS: Alanine Aminotransferase 37 U/L (0-31); Albumin Level 2.1 g/dL (3.5-5.0); Alkaline Phosphatase 133 U/L (39-117); Anion Gap 26 (12-20); Aspartate Amino Transferase 104 U/L (5-31); Bilirubin Total 2.3 mg/dL (0.0-1.0); Blood Urea Nitrogen 169 mg/dL (9-16); Calcium 8.1 mg/dL (8.4-10.2); Carbon Dioxide 16 mmol/L (22-29); Chloride 102 mmol/L (96-108); Creatinine Clr Calc Pharmacy 7.3; Estimated Glomerular Filt Rate 4; Glucose Random 119 mg/dL (60-115); Magnesium 3.2 mg/dL (1.6-2.6); Phosphorus 6.1 mg/dL (2.7-4.5); Potassium 5.8 mmol/L (3.3-5.1); Sodium 138 mmol/L (135-145); Total Protein 5.9 g/dL (6.5-8.0)
[2025-02-12 06:10] LABS: Venous Blood Gas Refer to POC result
--- NOTE | 2025-02-12 06:36 | PC.ADMIT ---
Patient is a 29 year old female admitted to ICU on 02/11/25 at 2020 for n/v/d x 2 days, dyspnea and chest wall pain. Upon arrival to the unit, patient is alert and oriented x 4, anxious and crying out due to 10/10 right chest wall pain. Patient has moist, persistent cough spontaneous sputum production.Lungs dim throughout with scattered rhonchi in right lung. Patient currently on Hi Flow 40L 35%. SPO2 >95% throughout the night. Sinus Tach 100-120 on monitor. She reports intermittent nausea. Patient NPO per provider. Bladder scanned for 40cc, Renee catheter inserted for accurate urine output (ARF). Bicarb gtt started upon arrival to the unit. 1 unit of PRBC administered due to Hgb/Hct 7.0/19.5. Patient currently receiving vanco and zosyn therapy. Throughout the night, patient yelling out, due to pain and anxiety. 2mg dilaudid administered as needed for pain (see MAR), and versed 1mg x 1 administered with some effect. As of this writing, bicarb gtt is paused awaiting AM lab results per provider (SHOLA, [employer]). Patient family in to bedside and aware of course of treatment. Bed in lowest setting, call hendricks in place.
[2025-02-12] MEDS: 0.9 % Sodium Chloride Flush 3 ML SYRINGE IVFLUSH ×3 (07:46→23:20)
--- NOTE | 2025-02-12 11:09 | P.PNCC_ITS ---
Subjective Subjective Date of Service: 02/12/25 Interval History: Progressively worsening respiratory status, dyspneic and tachypneic to 40s Complaining of pain throughout her body Critical Care Time (minutes): 60 Physical Exam 2 Vital Signs: Vital Signs: Last Vital Signs Temp 100.8 F H 02/12/25 10:00 Pulse 115 H 02/12/25 10:00 Resp 22 H 02/12/25 10:00 BP 134/80 02/12/25 10:00 Pulse Ox 95 02/12/25 10:00 O2 Del Method High Flow Nasal C annula 02/12/25 10:00 O2 Flow Rate 40 02/12/25 10:00 FiO2 30 02/12/25 10:00 Oxygen Flow Rate 40 02/11/25 21:17 BMI result Body Mass Index 19.8 General: Young lady in severe acute distress, screaming in pain, dyspneic sitting on the bed Nutritional Appearance: Normal nourished and normal weight Eyes: appearance normal, both eyes and all related structures; Alignment and Position: alignment normal and position normal Neck: No lymphadenopathy, no thyromegaly Resp: bilateral air entry equal, significant crackles heard in the right left Cardio: Regular rate, regular rhythm; Heart sounds: S1 normal heart sound present and S2 normal heart sound present GI: soft, nontender, no guarding, no hepatosplenomegaly : bladder normal to inspection, bladder normal to palpation, no renal angle tenderness Skin: no rashes or lesions noted and elasticity normal Neuro: oriented to person, oriented to place, oriented to time and moves all extremities Objective Data Labs 02/12/25 05:01 02/12/25 05:01 Labs: Laboratory Results - last 24 hr 02/11/25 02/11/25 02/11/25 17:17 17:44 18:41 WBC 15.0 H RBC 2.55 L D Hgb 7.0 L* D Hct 19.5 L* D MCV 76.5 L MCH 27.5 MCHC 35.9 H RDW 16.1 H Plt Count 394 D MPV 11.9 Immature Gran % (Auto) Cancelled Neut % (Auto) Cancelled Lymph % (Auto) Cancelled Garvin % (Auto) Cancelled Eos % (Auto) Cancelled Baso % (Auto) Cancelled Lymph # (Auto) Cancelled Garvin # (Auto) Cancelled Eos # (Auto) Cancelled Baso # (Auto) Cancelled Abs Immat Gran (auto) Cancelled Absolute Neuts (auto) Cancelled Absolute Nucleated RBC 0.260 H Nucleated RBC % (auto) 1.7 H Neutrophils % (Manual) 73 Band Neutrophils % 9 H Lymphocytes % (Manual) 7 L Atypical Lymphs % (Man) Monocytes % (Manual) 7 Metamyelocytes % 1 Myelocytes % 1 Promyelocytes % 1 Blast Cells % (Manual) 1 Abs Neuts (Manual) 12.3 H Lymphocytes # (Manual) 1.1 L Atyp Lymphs # (Manual) Monocytes # (Manual) 1.1 Metamyelocytes # 0.2 Myelocytes # 0.2 Promyelocytes # 0.2 Blast Cells # 0.2 Nucleated RBCs 4 H Toxic Granulation PRESENT Dohle Bodies PRESENT Platelet Estimate NORMAL Large Platelets PRESENT Giant Platelets PRESENT Plt Morphology Comment AGRANULAR RBC Morphology NOTED Polychromasia 1+ (0-2) Hypochromasia 1+ (5-14) Microcytosis 1+ (5-14) Spherocytes 1+ (0-2) Target Cells 1+ (5-14) Tear Drop Cells 1+ (0-2) Bambi Cells 3+ (>5) Acanthocytes (Spur) Schistocytes 2+ (3-5) ESR > 140 H PT INR VBG pH VBG pCO2 VBG pO2 VBG HCO3 VBG O2 Saturation VBG Base Excess Sodium 136 Potassium 6.1 H* D Chloride 104 Carbon Dioxide 10 L* D Anion Gap 28 H BUN > 125 H Creatinine 11.96 H* Estim Creat Clear Calc 6.4 Estimated GFR 4 POC Glucose Random Glucose 58 L* Haptoglobin 412 H Lactic Acid 2.6 H* Lactic Acid F/U @ 2Hr Lactic Acid F/U @ 4Hr Calcium 8.6 D Phosphorus Magnesium 3.9 H* Total Bilirubin 3.3 H Direct Bilirubin 2.6 H AST 111 H ALT 42 H Alkaline Phosphatase 146 H Lactate Dehydrogenase 715 H Total Creatine Kinase 583 H Troponin I High Sens 7.5 C-Reactive Protein 36.82 H B-Natriuretic Peptide 364 H Total Protein 6.6 Albumin 2.4 L Lipase < 4 L Procalcitonin > 100.00 Beta HCG, Quant < 2 Urine Color Urine Appearance Urine pH Ur Specific [place] Urine Protein Urine Glucose (UA) Urine Ketones Urine Blood Urine Nitrite Ur Leukocyte Esterase Urine RBC Urine WBC Ur Squamous Epith Cells Urine Bacteria Hyaline Casts Urine Opiates Screen Ur Buprenorphine Scrn Ur Oxycodone Screen Urine Methadone Screen Urine Fentanyl Screen Ur Barbiturates Screen Ur Phencyclidine Scrn Ur Amphetamines Screen U Benzodiazepines Scrn Urine Cocaine Screen U Marijuana (THC) Screen Influenza Type A (ANNA) Influenza Type A (PCR) NEGATIVE Influenza Type B (ANNA) Influenza Type B (PCR) NEGATIVE Influenza A & B Note RSV RNA Qual (PCR) NEGATIVE SARS-CoV-2 RNA (RT-PCR) NEGATIVE Blood Type A Positive Antibody Screen NEGATIVE Crossmatch See Detail 02/11/25 02/11/25 02/11/25 18:50 19:41 19:44 WBC RBC Hgb Hct MCV MCH MCHC RDW Plt Count MPV Immature Gran % (Auto) Neut % (Auto) Lymph % (Auto) Garvin % (Auto) Eos % (Auto) Baso % (Auto) Lymph # (Auto) Garvin # (Auto) Eos # (Auto) Baso # (Auto) Abs Immat Gran (auto) Absolute Neuts (auto) Absolute Nucleated RBC Nucleated RBC % (auto) Neutrophils % (Manual) Band Neutrophils % Lymphocytes % (Manual) Atypical Lymphs % (Man) Monocytes % (Manual) Metamyelocytes % Myelocytes % Promyelocytes % Blast Cells % (Manual) Abs Neuts (Manual) Lymphocytes # (Manual) Atyp Lymphs # (Manual) Monocytes # (Manual) Metamyelocytes # Myelocytes # Promyelocytes # Blast Cells # Nucleated RBCs Toxic Granulation Dohle Bodies Platelet Estimate Large Platelets Giant Platelets Plt Morphology Comment RBC Morphology Polychromasia Hypochromasia Microcytosis Spherocytes Target Cells Tear Drop Cells Bambi Cells Acanthocytes (Spur) Schistocytes ESR PT INR VBG pH 7.34 VBG pCO2 17 VBG pO2 91 VBG HCO3 9 L VBG O2 Saturation TNP VBG Base Excess -14.3 Sodium Potassium Chloride Carbon Dioxide Anion Gap BUN Creatinine Estim Creat Clear Calc Estimated GFR POC Glucose 120 H Random Glucose Haptoglobin Lactic Acid Lactic Acid F/U @ 2Hr 3.9 H* Lactic Acid F/U @ 4Hr Calcium Phosphorus Magnesium Total Bilirubin Direct Bilirubin AST ALT Alkaline Phosphatase Lactate Dehydrogenase Total Creatine Kinase Troponin I High Sens C-Reactive Protein 32.07 H B-Natriuretic Peptide Total Protein Albumin Lipase Procalcitonin Beta HCG, Quant Urine Color Urine Appearance Urine pH Ur Specific [place] Urine Protein Urine Glucose (UA) Urine Ketones Urine Blood Urine Nitrite Ur Leukocyte Esterase Urine RBC Urine WBC Ur Squamous Epith Cells Urine Bacteria Hyaline Casts Urine Opiates Screen Ur Buprenorphine Scrn Ur Oxycodone Screen Urine Methadone Screen Urine Fentanyl Screen Ur Barbiturates Screen Ur Phencyclidine Scrn Ur Amphetamines Screen U Benzodiazepines Scrn Urine Cocaine Screen U Marijuana (THC) Screen Influenza Type A (ANNA) Influenza Type A (PCR) Influenza Type B (ANNA) Influenza Type B (PCR) Influenza A & B Note RSV RNA Qual (PCR) SARS-CoV-2 RNA (RT-PCR) Blood Type Antibody Screen Crossmatch 02/11/25 02/11/25 02/11/25 20:37 20:39 20:48 WBC RBC Hgb Hct MCV MCH MCHC RDW Plt Count MPV Immature Gran % (Auto) Neut % (Auto) Lymph % (Auto) Garvin % (Auto) Eos % (Auto) Baso % (Auto) Lymph # (Auto) Garvin # (Auto) Eos # (Auto) Baso # (Auto) Abs Immat Gran (auto) Absolute Neuts (auto) Absolute Nucleated RBC Nucleated RBC % (auto) Neutrophils % (Manual) Band Neutrophils % Lymphocytes % (Manual) Atypical Lymphs % (Man) Monocytes % (Manual) Metamyelocytes % Myelocytes % Promyelocytes % Blast Cells % (Manual) Abs Neuts (Manual) Lymphocytes # (Manual) Atyp Lymphs # (Manual) Monocytes # (Manual) Metamyelocytes # Myelocytes # Promyelocytes # Blast Cells # Nucleated RBCs Toxic Granulation Dohle Bodies Platelet Estimate Large Platelets Giant Platelets Plt Morphology Comment RBC Morphology Polychromasia Hypochromasia Microcytosis Spherocytes Target Cells Tear Drop Cells Fountain Cells Acanthocytes (Spur) Schistocytes ESR PT INR VBG pH 7.34 VBG pCO2 21 VBG pO2 96 VBG HCO3 11 L VBG O2 Saturation 97.0 VBG Base Excess -12.4 Sodium Potassium Chloride Carbon Dioxide Anion Gap BUN Creatinine Estim Creat Clear Calc Estimated GFR POC Glucose 99 Random Glucose Haptoglobin Lactic Acid Lactic Acid F/U @ 2Hr Lactic Acid F/U @ 4Hr Calcium Phosphorus Magnesium Total Bilirubin Direct Bilirubin AST ALT Alkaline Phosphatase Lactate Dehydrogenase Total Creatine Kinase Troponin I High Sens C-Reactive Protein B-Natriuretic Peptide Total Protein Albumin Lipase Procalcitonin Beta HCG, Quant Urine Color Urine Appearance Urine pH Ur Specific [place] Urine Protein Urine Glucose (UA) Urine Ketones Urine Blood Urine Nitrite Ur Leukocyte Esterase Urine RBC Urine WBC Ur Squamous Epith Cells Urine Bacteria Hyaline Casts Urine Opiates Screen Ur Buprenorphine Scrn Ur Oxycodone Screen Urine Methadone Screen Urine Fentanyl Screen Ur Barbiturates Screen Ur Phencyclidine Scrn Ur Amphetamines Screen U Benzodiazepines Scrn Urine Cocaine Screen U Marijuana (THC) Screen Influenza Type A (ANNA) Cancelled Influenza Type A (PCR) Influenza Type B (ANNA) Cancelled Influenza Type B (PCR) Influenza A & B Note Cancelled RSV RNA Qual (PCR) SARS-CoV-2 RNA (RT-PCR) Blood Type Antibody Screen Crossmatch 02/11/25 02/11/25 02/12/25 20:51 21:59 05:00 WBC RBC Hgb Hct MCV MCH MCHC RDW Plt Count MPV Immature Gran % (Auto) Neut % (Auto) Lymph % (Auto) Garvin % (Auto) Eos % (Auto) Baso % (Auto) Lymph # (Auto) Garvin # (Auto) Eos # (Auto) Baso # (Auto) Abs Immat Gran (auto) Absolute Neuts (auto) Absolute Nucleated RBC Nucleated RBC % (auto) Neutrophils % (Manual) Band Neutrophils % Lymphocytes % (Manual) Atypical Lymphs % (Man) Monocytes % (Manual) Metamyelocytes % Myelocytes % Promyelocytes % Blast Cells % (Manual) Abs Neuts (Manual) Lymphocytes # (Manual) Atyp Lymphs # (Manual) Monocytes # (Manual) Metamyelocytes # Myelocytes # Promyelocytes # Blast Cells # Nucleated RBCs Toxic Granulation Dohle Bodies Platelet Estimate Large Platelets Giant Platelets Plt Morphology Comment RBC Morphology Polychromasia Hypochromasia Microcytosis Spherocytes Target Cells Tear Drop Cells Fountain Cells Acanthocytes (Spur) Schistocytes ESR PT INR VBG pH 7.47 H VBG pCO2 24 VBG pO2 102 VBG HCO3 17 L VBG O2 Saturation 98.0 VBG Base Excess -4.6 Sodium 138 Potassium 5.5 H Chloride 104 Carbon Dioxide 13 L Anion Gap 27 H BUN 171 H Creatinine 10.84 H* Estim Creat Clear Calc 7.0 Estimated GFR 4 POC Glucose Random Glucose 124 H Haptoglobin Lactic Acid Lactic Acid F/U @ 2Hr Lactic Acid F/U @ 4Hr 3.2 H* Calcium 8.4 Phosphorus 7.4 H Magnesium 3.2 H Total Bilirubin Direct Bilirubin AST ALT Alkaline Phosphatase Lactate Dehydrogenase Total Creatine Kinase Troponin I High Sens C-Reactive Protein B-Natriuretic Peptide Total Protein Albumin Lipase Procalcitonin Beta HCG, Quant Cancelled Urine Color Dark Yellow Urine Appearance Cloudy Urine pH 5.0 Ur Specific [place] >= 1.030 H Urine Protein >=1000 (4+) H Urine Glucose (UA) Negative Urine Ketones Trace Urine Blood Trace H Urine Nitrite Negative Ur Leukocyte Esterase Trace H Urine RBC 3-5 H Urine WBC 0-5 Ur Squamous Epith Cells 3-5 Urine Bacteria Trace Hyaline Casts >20 Urine Opiates Screen POSITIVE H Ur Buprenorphine Scrn Not Detected Ur Oxycodone Screen Not Detected Urine Methadone Screen Not Detected Urine Fentanyl Screen POSITIVE H Ur Barbiturates Screen Not Detected Ur Phencyclidine Scrn Not Detected Ur Amphetamines Screen Not Detected U Benzodiazepines Scrn Not Detected Urine Cocaine Screen Not Detected U Marijuana (THC) Screen POSITIVE H Influenza Type A (ANNA) Influenza Type A (PCR) Influenza Type B (ANNA) Influenza Type B (PCR) Influenza A & B Note RSV RNA Qual (PCR) SARS-CoV-2 RNA (RT-PCR) Blood Type Antibody Screen Crossmatch 02/12/25 05:01 WBC 23.3 H RBC 2.76 L Hgb 7.7 L Hct 21.1 L MCV 76.4 L MCH 27.9 MCHC 36.5 H RDW 16.9 H Plt Count 295 D MPV 10.2 Immature Gran % (Auto) Cancelled Neut % (Auto) Cancelled Lymph % (Auto) Cancelled Garvin % (Auto) Cancelled Eos % (Auto) Cancelled Baso % (Auto) Cancelled Lymph # (Auto) Cancelled Garvin # (Auto) Cancelled Eos # (Auto) Cancelled Baso # (Auto) Cancelled Abs Immat Gran (auto) Cancelled Absolute Neuts (auto) Cancelled Absolute Nucleated RBC 0.210 H Nucleated RBC % (auto) 0.9 H Neutrophils % (Manual) 65 Band Neutrophils % 19 H Lymphocytes % (Manual) 4 L Atypical Lymphs % (Man) 1 Monocytes % (Manual) 7 Metamyelocytes % 3 Myelocytes % 1 Promyelocytes % Blast Cells % (Manual) Abs Neuts (Manual) 19.6 H Lymphocytes # (Manual) 0.9 L Atyp Lymphs # (Manual) 0.2 Monocytes # (Manual) 1.6 H Metamyelocytes # 0.7 Myelocytes # 0.2 Promyelocytes # Blast Cells # Nucleated RBCs 4 H Toxic Granulation PRESENT Dohle Bodies PRESENT Platelet Estimate NORMAL Large Platelets Giant Platelets Plt Morphology Comment NORMAL RBC Morphology NOTED Polychromasia 1+ (0-2) Hypochromasia Microcytosis 1+ (5-14) Spherocytes 2+ (3-5) Target Cells 1+ (5-14) Tear Drop Cells Bambi Cells 2+ (3-5) Acanthocytes (Spur) 2+ (3-5) Schistocytes 2+ (3-5) ESR PT 16.2 H INR 1.4 H VBG pH VBG pCO2 VBG pO2 VBG HCO3 VBG O2 Saturation VBG Base Excess Sodium 138 Potassium 5.8 H Chloride 102 Carbon Dioxide 16 L Anion Gap 26 H BUN 169 H Creatinine 10.29 H* Estim Creat Clear Calc 7.3 Estimated GFR 4 POC Glucose Random Glucose 119 H Haptoglobin Lactic Acid Lactic Acid F/U @ 2Hr Lactic Acid F/U @ 4Hr Calcium 8.1 L Phosphorus 6.1 H Magnesium 3.2 H Total Bilirubin 2.3 H Direct Bilirubin AST 104 H ALT 37 H Alkaline Phosphatase 133 H Lactate Dehydrogenase Total Creatine Kinase 572 H Troponin I High Sens C-Reactive Protein B-Natriuretic Peptide Total Protein 5.9 L Albumin 2.1 L Lipase Procalcitonin Beta HCG, Quant Urine Color Urine Appearance Urine pH Ur Specific [place] Urine Protein Urine Glucose (UA) Urine Ketones Urine Blood Urine Nitrite Ur Leukocyte Esterase Urine RBC Urine WBC Ur Squamous Epith Cells Urine Bacteria Hyaline Casts Urine Opiates Screen Ur Buprenorphine Scrn Ur Oxycodone Screen Urine Methadone Screen Urine Fentanyl Screen Ur Barbiturates Screen Ur Phencyclidine Scrn Ur Amphetamines Screen U Benzodiazepines Scrn Urine Cocaine Screen U Marijuana (THC) Screen Influenza Type A (ANNA) Influenza Type A (PCR) Influenza Type B (ANNA) Influenza Type B (PCR) Influenza A & B Note RSV RNA Qual (PCR) SARS-CoV-2 RNA (RT-PCR) Blood Type Antibody Screen Crossmatch Microbiology Microbiology Results: Microbiology 02/11/25 17:17 Blood - Venous Blood Culture - Preliminary Prelim: GNR Gram Stain only 02/11/25 17:44 Blood - Venous Blood Culture - Preliminary Prelim: GNR Gram Stain only Progress Note: A&P Assessment and plan (1) Lupus nephritis: Status: Acute (2) Acute renal failure (ARF): Status: Acute (3) Acidosis, lactic: Status: Acute (4) Acidosis: Status: Acute (5) Acute on chronic anemia: Status: Acute (6) Fibromyalgia: Status: Acute (7) Right lower lobe pneumonia: Status: Acute (8) Pneumonia: Status: Acute Plan Neuro: Acute encephalopathy possibly due to metabolic encephalopathy We will start on propofol for sedation, as needed fentanyl for analgesia Close neurological status monitoring in the ICU every hour Cardiac: Bedside echo shows normal LV systolic function, tachycardia, small RV, IVC 1.1 cm fluctuating with respiration Respiratory: Acute hypoxemic respiratory failure due to right lung pneumonia Patient is very dyspneic and tachypneic with respiratory rate around 40, we will intubate the patient On PRVC mode FiO 40%, PEEP 5, TV350, RR24 Peak pressures and plateau pressures are under the curve Ventilator management bundle with head end elevation, aspiration precaution, chlorhexidine mouthwash, daily awakening trials, daily spontaneous breathing trials GI: We will start on tube feeds Renal: Acute kidney injury possibly secondary to ATN from sepsis however lupus nephritis can not be ruled out as pending complements, if in case low we can not start on cyclophosphamide or any other immunosuppression given her bacteremia. We will continue Solu-Medrol 40 mg as it might even help SIRS and multiorgan failure from pneumonia Creatinine 10.98, K 5.8- we will give her another L of sodium bicarbonate bolus and we will look for response, we will repeat labs we will start her on renal replacement therapy. We will closely monitor I's and O's Avoid nephrotoxic medications Hyperkalemia: We will medically manage Possibly we will need to restart her on renal replacement therapy Lactic acidosis: From multiorgan failure Heme: Chronic anemia, closely monitor H&H, transfuse for hemoglobin less than 7 grams/deciliter Endocrine: Blood sugars under control Sliding scale insulin as needed Infectious disease: Blood cultures growing Gram-negative rods, possibly secondary to pneumonia On vanc and Zosyn, we will get MRSA nares if negative we will discontinue vanc Musculoskeletal: Decubitus ulcer prevention protocol Lines: will need HD line possibly Prophylaxis: Heparin withheld due to anemia, pantoprazole Critical care time spent is about 60 minutes on this critically ill patient with multiple organ failures including acute encephalopathy from hypoxemic respiratory failure needing ventilator support, acute renal failure possibly needing dialysis support, transaminitis, lactic acidosis. Critical care time spent is on management of respiratory failure, ventilator management, sedation management, post intubation care, close hemodynamic monitoring, bedside echo, review of labs, treating hypercalemia and this time is excluding any procedural time Quality Stroke Does the patient have a stroke diagnosis?: No VTE Prior VTE?: No VTE Risk Level:: Medical - moderate - high VTE Device Contraindication: N/A - Device Ordered VTE Drug Contraindication: Treatment Not Indicated
[2025-02-12] MEDS: Sodium Bicarbonate 8.4% 150 MEQ in Dextrose 5 % 850 ML 999 MEQ IV (11:10)
[2025-02-12 11:31] LABS: Adenovirus PCR Not Detected (Not Detect.); Bordetella parapertussis PCR Not Detected (Not Detect.); Bordetella pertussis PCR Not Detected (Not Detect.); Chlamydia pneumoniae PCR Not Detected (Not Detect.); Coronavirus 229E PCR Not Detected (Not Detect.); Coronavirus HKU1 PCR Not Detected (Not Detect.); Coronavirus NL63 PCR Not Detected (Not Detect.); Coronavirus OC43 PCR Not Detected (Not Detect.); Human metapneumovirus PCR Not Detected (Not Detect.); Influenza A PCR Not Detected (Not Detect.); Influenza B PCR Not Detected (Not Detect.); Mycoplasma pneumoniae PCR Not Detected (Not Detect.); Parainfluenza 1 PCR Not Detected (Not Detect.); Parainfluenza 2 PCR Not Detected (Not Detect.); Parainfluenza 3 PCR Detected (Not Detect.); Parainfluenza 4 PCR Not Detected (Not Detect.); RSV PCR Not Detected (Not Detect.); Rhino/Enterovirus PCR Not Detected (Not Detect.)
[2025-02-12 11:39] LABS: Influenza A H1 PCR Not Detected (Not Detect.); Influenza A H1-2009 PCR Not Detected (Not Detect.); Influenza A H3 PCR Not Detected (Not Detect.); SARS-CoV-2 PCR Not Detected (Not Detect.)
[2025-02-12] MEDS: Midazolam HCl 2 MG/2 ML VIAL 4 MG IVPUSH (12:35)
[2025-02-12] MEDS: Etomidate 20 MG/10 ML VIAL IVPUSH (12:35)
[2025-02-12] MEDS: Rocuronium Bromide 50 MG/5 ML VIAL 100 MG IVPUSH ×2 (12:36→12:38)
[2025-02-12] MEDS: propofoL 1,000 MG/100 ML VIAL 10.62 MG IVCONT (12:42)
[2025-02-12 13:06] LABS: Hematocrit 21.7 % (37.0-47.0); Mean Corpuscular HGB Conc 36.9 g/dl (31.0-35.0); Mean Corpuscular Hemoglobin 28.3 pg (27.0-33.0); Mean Corpuscular Volume 76.7 fL (80.0-98.0); Mean Platelet Volume 11.3 fL (9.4-12.3); Platelet Count 313 X10*3/uL (160-400); Red Blood Count 2.83 X10*6/uL (4.20-5.50)
[2025-02-12 13:09] LABS: NRBC Pct Auto 1.1 /100WBC (0.0-0.2); WBC ABN SCTR FOR CBC 1; White Blood Count 29.6 X10*3/uL (4.8-10.8)
[2025-02-12 13:31] LABS: Band Neutrophils Percent 19 % (3-5); Lymphocytes Absolute Manual 1.8 X10*3/uL (1.2-4.9); Lymphocytes Percent Manual 6 % (20-40); Metamyelocytes Absolute 0.6 X10*3/uL; Metamyelocytes Percent 2 %; Monocytes Absolute Manual 0.3 X10*3/uL (0.1-1.2); Monocytes Percent Manual 1 % (2-11); Neutrophils Absolute Manual 26.9 X10*3/uL (2.0-8.3); Neutrophils Percent Manual 72 % (45-73)
[2025-02-12 13:35] LABS: Dohle Bodies PRESENT; Hypochromasia 2+ (15-30) /OIF; RBC Morphology NOTED; Schistocytes 1+ (0-2) /OIF; Spherocytes 1+ (0-2) /OIF; Target Cells 1+ (5-14) /OIF; Toxic Vacuolation PRESENT
[2025-02-12 13:36] LABS: Platelet Estimate NORMAL (NORMAL); Platelet Morphology Comment NORMAL
--- NOTE | 2025-02-12 13:38 | W.PM.CCHP ---
Procedures Date of Service Date of Service: 02/12/25 Central Line Placement Right IJ: Consent for Procedure: Emergent-no informed consent obtained Time out performed: Yes Sterile Technique Used: Yes Patient placed on monitor/pulse ox: Yes MD prep: mask, gown and gloves Central line prep: Chlorhexidine scrub and sterile drapes applied Ultrasound used for placement: Yes Central line lumen inserted: triple Post procedure: sutured in place, good blood return, all ports aspirated, flushed, capped and sterile dressing applied Post procedure x-ray: tip of catheter in good position and no pneumothorax seen Patient tolerated procedure: well and no complications Complications: none
--- NOTE | 2025-02-12 13:39 | W.PM.CCHP ---
Procedures Date of Service Date of Service: 02/12/25 Intubation Consent for Procedure: Emergent-no informed consent obtained Time out performed: Yes Sedative: etomidate Mg given: 20 Paralytic: rocuronium Mg given: 100 ET tube size: 7.5 ET tube uncuffed: No Tube secured depth (cm): 25 Tube secured location: lips Tube placement confirmation: visualized tube passing through cords, equal breath sounds bilaterally and no breath sounds over epigastrium Patient tolerated procedure: well Intubation complications: none
[2025-02-12 13:43] LABS: Alanine Aminotransferase 34 U/L (0-31); Albumin Level 2.2 g/dL (3.5-5.0); Alkaline Phosphatase 155 U/L (39-117); Anion Gap 23 (12-20); Aspartate Amino Transferase 77 U/L (5-31); Bilirubin Total 1.6 mg/dL (0.0-1.0); Blood Urea Nitrogen 170 mg/dL (9-16); Carbon Dioxide 22 mmol/L (22-29); Chloride 99 mmol/L (96-108); Creatinine Clr Calc Pharmacy 7.7; Estimated Glomerular Filt Rate 5; Glucose Random 172 mg/dL (60-115); Potassium 5.2 mmol/L (3.3-5.1); Sodium 139 mmol/L (135-145); Total Protein 6.1 g/dL (6.5-8.0)
--- NOTE | 2025-02-12 13:49 | MHC.CM.PN ---
Pt now requiring intubation in ICU: information obtained from EMR and family in room: pt resides at home w/family, has no services or barriers with transportation. HCP on file, MD Dr. Pompa. D/C planning not finalized and will depend on pt's progress.
[2025-02-12 14:45] LABS: MRSA Nasal PCR POSITIVE (Negative); SA Nasal PCR POSITIVE (Negative)
[2025-02-12] MEDS: propofoL 1,000 MG/100 ML VIAL 14.16 MG IVCONT (17:20)
--- NOTE | 2025-02-12 17:59 | PC.NURSE ---
Assumed care @ 0700. Upon initial assessment Pt Drowsy, following commands. On HFNC. Rhoncurous? Bl throughout. Intermittent moist cough, tachypneic. Approximately @ 1230 the decision? to intubate was made by Dr. Mcnair.? Neuro/Resp: Sedated/intubated, on? propofol gtt. per NOV.? Does not open eyes, does not track, does not follow commands, Flaccid extremities. (passive ROM performed).? Resp: ?ACVC vent. Support.? Cardiac: ?Sinus tachy on tele? GI: + bowel sounds, OGT in place/clamp, POC Q6hr. : Oliguric, Renee in place, patent /draining. First hemodialysis treatment in progress. Temp: up tp 100.9, Ice packs in place? Infectious: IV antibiotics? Lines: Hemodialysis catheter RIJ, Peripheral IVs
[2025-02-12 18:09] LABS: Glucose, Whole Blood 132 mg/dL (60-115)
[2025-02-12 20:00] LABS: Venous Blood Gas Refer to POC result
[2025-02-12 20:01] LABS: VBG Base Excess 4.8 mmol/L; VBG HCO3 28 mmol/L (22-26); VBG pCO2 37 mmHg; VBG pH 7.48 (7.32-7.43); VBG pO2 49 mmHg
[2025-02-12 20:13] LABS: Anion Gap 21 (12-20); Blood Urea Nitrogen 122 mg/dL (9-16); Calcium 8.2 mg/dL (8.4-10.2); Carbon Dioxide 24 mmol/L (22-29); Chloride 100 mmol/L (96-108); Creatinine Clr Calc Pharmacy 11.1; Estimated Glomerular Filt Rate 7; Glucose Random 126 mg/dL (60-115); Magnesium 2.9 mg/dL (1.6-2.6); Phosphorus 4.6 mg/dL (2.7-4.5); Potassium 4.8 mmol/L (3.3-5.1); Sodium 140 mmol/L (135-145)
[2025-02-12 20:24] LABS: Vancomycin Random 26.5 mcg/mL (15-20)
[2025-02-12] MEDS: Chlorhexidine Gluc Oral Rinse 15 ML MOUTHWASH BUCCAL (20:45)
[2025-02-12] MEDS: propofoL 1,000 MG/100 ML VIAL 17.7 MG IVCONT (23:24)
[2025-02-13] VITALS (39 sets, daily range): BP systolic 102–145; BP diastolic 52–92; PULSE 65–100; RESP 16–28; TEMP 34.6–37.7; O2SAT 95–100; BMI 19.8
[2025-02-13] MEDS: propofoL 1,000 MG/100 ML VIAL 17.7 MG IVCONT ×4 (03:31→18:43)
[2025-02-13] MEDS: methylPREDNISolone Sod Succ 40 MG/ML VIAL IVPUSH ×2 (04:22→18:18)
[2025-02-13] MEDS: HYDROmorphone HCl 2 MG/ML VIAL IVPUSH (04:25)
[2025-02-13] MEDS: Piperacillin Sodium/Tazobactam 2.25 GM in 0.9 % Sodium Chloride 50 ML IV ×3 (04:26→19:32)
[2025-02-13 05:30] LABS: VBG Base Excess 4.7 mmol/L; VBG HCO3 26 mmol/L (22-26); VBG pCO2 29 mmHg; VBG pH 7.56 (7.32-7.43); VBG pO2 36 mmHg
[2025-02-13 05:35] LABS: Venous Blood Gas Refer to POC result
[2025-02-13] MEDS: Pantoprazole Sodium 40 MG/10 ML VIAL IVPUSH (05:40)
[2025-02-13 05:57] LABS: Mean Corpuscular HGB Conc 35.7 g/dl (31.0-35.0); Mean Corpuscular Hemoglobin 28.5 pg (27.0-33.0); Mean Corpuscular Volume 79.7 fL (80.0-98.0); Mean Platelet Volume 12.4 fL (9.4-12.3); Platelet Count 288 X10*3/uL (160-400); Red Blood Count 2.46 X10*6/uL (4.20-5.50); Red Cell Distribution Width 17.2 % (11.0-16.0)
[2025-02-13 05:59] LABS: NRBC Pct Auto 1.4 /100WBC (0.0-0.2); WBC ABN SCTR FOR CBC 1
[2025-02-13 06:01] LABS: Hematocrit 19.6 % (37.0-47.0)
[2025-02-13 06:27] LABS: Alanine Aminotransferase 23 U/L (0-31); Alkaline Phosphatase 157 U/L (39-117); Anion Gap 21 (12-20); Aspartate Amino Transferase 40 U/L (5-31); Bilirubin Total 0.9 mg/dL (0.0-1.0); Calcium 7.6 mg/dL (8.4-10.2); Carbon Dioxide 23 mmol/L (22-29); Chloride 100 mmol/L (96-108); Creatinine Clr Calc Pharmacy 9.9; Estimated Glomerular Filt Rate 6; Glucose Random 131 mg/dL (60-115); Magnesium 3.2 mg/dL (1.6-2.6); Phosphorus 7.1 mg/dL (2.7-4.5); Potassium 5.4 mmol/L (3.3-5.1); Sodium 139 mmol/L (135-145); Total Protein 5.9 g/dL (6.5-8.0)
[2025-02-13 07:08] LABS: Band Neutrophils Percent 1 % (3-5); Lymphocytes Percent Manual 4 % (20-40); Monocytes Percent Manual 3 % (2-11); Neutrophils Percent Manual 92 % (45-73); Nucleated Red Blood Cells 2 /100WBC (0-0)
[2025-02-13 07:09] LABS: RBC Morphology NOTED
[2025-02-13 07:11] LABS: Macrocytosis 1+ (5-14) /OIF; Platelet Estimate NORMAL (NORMAL)
[2025-02-13 07:12] LABS: Large Platelet PRESENT; Ovalocytes 1+ (5-14) /OIF; Platelet Morphology Comment NOTED; Schistocytes 1+ (0-2) /OIF
[2025-02-13 07:13] LABS: Polychromasia 1+ (0-2) /OIF; Spherocytes 1+ (0-2) /OIF; Target Cells 2+ (15-30) /OIF
[2025-02-13] MEDS: Albumin Human 25 % 100 ML IV ×3 (07:21→20:44)
[2025-02-13] MEDS: Chlorhexidine Gluc Oral Rinse 15 ML MOUTHWASH BUCCAL ×3 (07:21→20:44)
[2025-02-13] MEDS: 0.9 % Sodium Chloride Flush 3 ML SYRINGE IVFLUSH ×3 (07:21→20:44)
--- NOTE | 2025-02-13 07:38 | P.PNCC_ITS ---
Subjective Subjective Date of Service: 02/13/25 Interval History: Continues to be on ventilator support Critical Care Time (minutes): 35 Physical Exam 2 Vital Signs: Vital Signs: Last Vital Signs Temp 99.5 F 02/13/25 07:00 Pulse 91 02/13/25 07:00 Resp 23 H 02/13/25 07:00 BP 116/54 L 02/13/25 07:00 Pulse Ox 96 02/13/25 07:00 O2 Del Method Mechanical Ventil ation 02/13/25 07:00 O2 Flow Rate 50 02/12/25 11:57 FiO2 40 02/13/25 07:00 Oxygen Flow Rate 40 02/11/25 21:17 BMI result Body Mass Index 19.8 General: Young black lady acute distress, ill appearing and tired appearing Nutritional Appearance: well nourished and normal weight Eyes: appearance normal, both eyes and all related structures; Alignment and Position: alignment normal and position normal Neck: No lymphadenopathy, no thyromegaly Resp: bilateral air entry equal, significant crackles heard in the right lung Cardio: Regular rate, regular rhythm; Heart sounds: S1 normal heart sound present and S2 normal heart sound present GI: soft, nontender, no guarding, no hepatosplenomegaly : bladder normal to inspection, bladder normal to palpation, no renal angle tenderness Skin: no rashes or lesions noted and elasticity normal Neuro: Sedated, can not do a detailed neuro exam Objective Data Labs 02/13/25 05:21 02/13/25 05:21 Labs: Laboratory Results - last 24 hr 02/11/25 02/11/25 02/12/25 18:41 20:37 12:58 WBC 29.6 H RBC 2.83 L Hgb 8.0 L Hct 21.7 L MCV 76.7 L MCH 28.3 MCHC 36.9 H RDW 17.0 H Plt Count 313 MPV 11.3 Immature Gran % (Auto) Cancelled Neut % (Auto) Cancelled Lymph % (Auto) Cancelled Queens % (Auto) Cancelled Eos % (Auto) Cancelled Baso % (Auto) Cancelled Lymph # (Auto) Cancelled [place] # (Auto) Cancelled Eos # (Auto) Cancelled Baso # (Auto) Cancelled Abs Immat Gran (auto) Cancelled Absolute Neuts (auto) Cancelled Absolute Nucleated RBC 0.320 H Nucleated RBC % (auto) 1.1 H Neutrophils % (Manual) 72 Band Neutrophils % 19 H Lymphocytes % (Manual) 6 L Monocytes % (Manual) 1 L Metamyelocytes % 2 Abs Neuts (Manual) 26.9 H Lymphocytes # (Manual) 1.8 Monocytes # (Manual) 0.3 Metamyelocytes # 0.6 Nucleated RBCs Toxic Vacuolation PRESENT Dohle Bodies PRESENT Platelet Estimate NORMAL Large Platelets Plt Morphology Comment NORMAL RBC Morphology NOTED Polychromasia Hypochromasia 2+ (15-30) Macrocytosis Spherocytes 1+ (0-2) Target Cells 1+ (5-14) Ovalocytes Schistocytes 1+ (0-2) VBG pH VBG pCO2 VBG pO2 VBG HCO3 VBG O2 Saturation VBG Base Excess Sodium 139 Potassium 5.2 H Chloride 99 Carbon Dioxide 22 Anion Gap 23 H BUN 170 H Creatinine 9.78 H* Estim Creat Clear Calc 7.7 Estimated GFR 5 POC Glucose Random Glucose 172 H Calcium 8.0 L Phosphorus Magnesium Total Bilirubin 1.6 H AST 77 H ALT 34 H Alkaline Phosphatase 155 H Total Protein 6.1 L Albumin 2.2 L Nasal Screen MRSA (PCR) POSITIVE A Nasal S. aureus Screen POSITIVE A Nasal MRSA/S.aureus Interp SEE NOTE Random Vancomycin Respiratory Panel Rasheed See Note Adenovirus (Rapid PCR) Not Detected B.pert (TEM-PCR) Not Detected B.parapertussis DNA PCR Not Detected C. pneumoniae DNA (PCR) Not Detected Coronavirus OC43 (PCR) Not Detected Coronavirus HKU1 (PCR) Not Detected Coronavirus 229E (PCR) Not Detected Coronavirus NL63 (PCR) Not Detected Human Metapneumovir PCR Not Detected Influenza A (RT-PCR) Not Detected Influenza A (H1) PCR Not Detected Influ A (H1/09) PCR Not Detected Influenza A (H3) PCR Not Detected Influenza B (RT-PCR) Not Detected M. pneumoniae (PCR) Not Detected Parainfluenza 1 (PCR) Not Detected Parainfluenza 2 (PCR) Not Detected Parainfluenza 3 (PCR) Detected A Parainfluenza 4 (PCR) Not Detected RSV (PCR) Not Detected Entero/Rhino (PCR) Not Detected SARS-CoV-2 RNA (RT-PCR) Not Detected Blood Type A Positive Antibody Screen NEGATIVE Crossmatch See Detail 02/12/25 02/12/25 02/12/25 18:03 19:54 19:58 WBC RBC Hgb Hct MCV MCH MCHC RDW Plt Count MPV Immature Gran % (Auto) Neut % (Auto) Lymph % (Auto) [place] % (Auto) Eos % (Auto) Baso % (Auto) Lymph # (Auto) [place] # (Auto) Eos # (Auto) Baso # (Auto) Abs Immat Gran (auto) Absolute Neuts (auto) Absolute Nucleated RBC Nucleated RBC % (auto) Neutrophils % (Manual) Band Neutrophils % Lymphocytes % (Manual) Monocytes % (Manual) Metamyelocytes % Abs Neuts (Manual) Lymphocytes # (Manual) Monocytes # (Manual) Metamyelocytes # Nucleated RBCs Toxic Vacuolation Dohle Bodies Platelet Estimate Large Platelets Plt Morphology Comment RBC Morphology Polychromasia Hypochromasia Macrocytosis Spherocytes Target Cells Ovalocytes Schistocytes VBG pH 7.48 H VBG pCO2 37 VBG pO2 49 VBG HCO3 28 H VBG O2 Saturation 73.0 VBG Base Excess 4.8 Sodium 140 Potassium 4.8 Chloride 100 Carbon Dioxide 24 Anion Gap 21 H BUN 122 H Creatinine 6.79 H* Estim Creat Clear Calc 11.1 Estimated GFR 7 POC Glucose 132 H Random Glucose 126 H Calcium 8.2 L Phosphorus 4.6 H Magnesium 2.9 H Total Bilirubin AST ALT Alkaline Phosphatase Total Protein Albumin Nasal Screen MRSA (PCR) Nasal S. aureus Screen Nasal MRSA/S.aureus Interp Random Vancomycin 26.5 H* Respiratory Panel Rasheed Adenovirus (Rapid PCR) B.pert (TEM-PCR) B.parapertussis DNA PCR C. pneumoniae DNA (PCR) Coronavirus OC43 (PCR) Coronavirus HKU1 (PCR) Coronavirus 229E (PCR) Coronavirus NL63 (PCR) Human Metapneumovir PCR Influenza A (RT-PCR) Influenza A (H1) PCR Influ A (H1/09) PCR Influenza A (H3) PCR Influenza B (RT-PCR) M. pneumoniae (PCR) Parainfluenza 1 (PCR) Parainfluenza 2 (PCR) Parainfluenza 3 (PCR) Parainfluenza 4 (PCR) RSV (PCR) Entero/Rhino (PCR) SARS-CoV-2 RNA (RT-PCR) Blood Type Antibody Screen Crossmatch 02/13/25 02/13/25 05:21 05:26 WBC Not Reportable RBC 2.46 L Hgb 7.0 L* Hct 19.6 L* MCV 79.7 L MCH 28.5 MCHC 35.7 H RDW 17.2 H Plt Count 288 MPV 12.4 H Immature Gran % (Auto) Cancelled Neut % (Auto) Cancelled Lymph % (Auto) Cancelled [place] % (Auto) Cancelled Eos % (Auto) Cancelled Baso % (Auto) Cancelled Lymph # (Auto) Cancelled [place] # (Auto) Cancelled Eos # (Auto) Cancelled Baso # (Auto) Cancelled Abs Immat Gran (auto) Cancelled Absolute Neuts (auto) Cancelled Absolute Nucleated RBC 0.400 H Nucleated RBC % (auto) 1.4 H Neutrophils % (Manual) 92 H Band Neutrophils % 1 L Lymphocytes % (Manual) 4 L Monocytes % (Manual) 3 Metamyelocytes % Abs Neuts (Manual) Lymphocytes # (Manual) Monocytes # (Manual) Metamyelocytes # Nucleated RBCs 2 H Toxic Vacuolation Dohle Bodies Platelet Estimate NORMAL Large Platelets PRESENT Plt Morphology Comment NOTED RBC Morphology NOTED Polychromasia 1+ (0-2) Hypochromasia Macrocytosis 1+ (5-14) Spherocytes 1+ (0-2) Target Cells 2+ (15-30) Ovalocytes 1+ (5-14) Schistocytes 1+ (0-2) VBG pH 7.56 H VBG pCO2 29 VBG pO2 36 VBG HCO3 26 VBG O2 Saturation 64.0 VBG Base Excess 4.7 Sodium 139 Potassium 5.4 H Chloride 100 Carbon Dioxide 23 Anion Gap 21 H BUN > 125 H Creatinine 7.60 H* Estim Creat Clear Calc 9.9 Estimated GFR 6 POC Glucose Random Glucose 131 H Calcium 7.6 L D Phosphorus 7.1 H Magnesium 3.2 H Total Bilirubin 0.9 AST 40 H ALT 23 Alkaline Phosphatase 157 H Total Protein 5.9 L Albumin 2.0 L Nasal Screen MRSA (PCR) Nasal S. aureus Screen Nasal MRSA/S.aureus Interp Random Vancomycin Respiratory Panel Rasheed Adenovirus (Rapid PCR) B.pert (TEM-PCR) B.parapertussis DNA PCR C. pneumoniae DNA (PCR) Coronavirus OC43 (PCR) Coronavirus HKU1 (PCR) Coronavirus 229E (PCR) Coronavirus NL63 (PCR) Human Metapneumovir PCR Influenza A (RT-PCR) Influenza A (H1) PCR Influ A (H1/09) PCR Influenza A (H3) PCR Influenza B (RT-PCR) M. pneumoniae (PCR) Parainfluenza 1 (PCR) Parainfluenza 2 (PCR) Parainfluenza 3 (PCR) Parainfluenza 4 (PCR) RSV (PCR) Entero/Rhino (PCR) SARS-CoV-2 RNA (RT-PCR) Blood Type Antibody Screen Crossmatch Microbiology Microbiology Results: Microbiology 02/11/25 17:17 Blood - Venous Blood Culture - Preliminary Prelim: GNR Gram Stain only 02/11/25 17:44 Blood - Venous Blood Culture - Preliminary Prelim: GNR Gram Stain only Progress Note: A&P Assessment and plan (1) Lupus nephritis: Status: Acute (2) Acute on chronic anemia: Status: Acute (3) Pneumonia: Status: Acute (4) Right lower lobe pneumonia: Status: Acute (5) Systemic lupus erythematosus: Status: Acute Plan Neuro: Acute encephalopathy possibly due to metabolic encephalopathy on propofol for sedation, fentanyl drip for analgesia as she has severe fibromyalgia Close neurological status monitoring in the ICU every hour Cardiac: Bedside echo shows normal LV systolic function, tachycardia, small RV, IVC 1.1 cm fluctuating with respiration Respiratory: Acute hypoxemic respiratory failure due to right lung pneumonia Patient is very dyspneic and tachypneic with respiratory rate around 40, we will intubate the patient On PRVC mode FiO 40%, PEEP 5, TV350, RR24, would not try to extubate her today as she was just intubated yesterday and had significant work of breathing Peak pressures and plateau pressures are under the curve Ventilator management bundle with head end elevation, aspiration precaution, chlorhexidine mouthwash, daily awakening trials, daily spontaneous breathing trials GI: We will start on tube feeds Renal: Acute kidney injury possibly secondary to ATN from sepsis however lupus nephritis can not be ruled out as pending complements, if in case low we can not start on cyclophosphamide or any other immunosuppression given her bacteremia. We will continue Solu-Medrol 40 mg as it might even help SIRS and multiorgan failure from pneumonia Started on renal replacement therapy yesterday as she was oliguric, hyperkalemic and creatinine was 9.78. She still remains anuric with urine output about 10-15 cc per shift, potassium on the higher side and creatinine increased to 7.6; we will do another 2 hours dialysis session today. We will closely monitor I's and O's Avoid nephrotoxic medications Heme: Acute on Chronic anemia, closely monitor H&H We will transfuse her 1 unit of PRBC today Endocrine: Blood sugars under control Sliding scale insulin as needed Infectious disease: Blood cultures growing Gram-negative rods, possibly secondary to pneumonia On vanc and Zosyn, MRSA nares positive, parainfluenza positive Musculoskeletal: Decubitus ulcer prevention protocol Lines: Right IJ triple-lumen hemodialysis catheter Prophylaxis: Heparin withheld due to anemia, SCD, pantoprazole Patient is critically ill with multiple organ failures including acute encephalopathy, acute renal failure, acute hypoxic respiratory failure on ventilator support. Critical care time spent is about 50 minutes on ventilator management, sedation management, titrating sedation, close hemodynamic monitoring, renal replacement therapy, reviewing labs and images at this time is excluding any procedural time. Quality Stroke Does the patient have a stroke diagnosis?: No VTE Prior VTE?: No VTE Risk Level:: Medical - moderate - high VTE Device Contraindication: N/A - Device Ordered VTE Drug Contraindication: Treatment Not Indicated
[2025-02-13] MEDS: fentaNYL citrate/NS 1,000 MCG/100 ML PLAST..BAG 2.5 MCG IVCONT (08:46)
[2025-02-13 11:29] LABS: Lymphocytes Absolute Manual 1.1 X10*3/uL (1.2-4.9); Monocytes Absolute Manual 0.9 X10*3/uL (0.1-1.2); Neutrophils Absolute Manual 26.4 X10*3/uL (2.0-8.3); White Blood Count 28.4 X10*3/uL (4.8-10.8)
[2025-02-13 12:29] LABS: Glucose, Whole Blood 115 mg/dL (60-115)
--- NOTE | 2025-02-13 12:53 | MHC.CM.PN ---
Pt remains intubated: no plans for extubation today: pt from home with family and is expected to return when medically stable.
[2025-02-13 13:47] LABS: HBS Num1 161.82 mIU/mL (0-7.99); HBc Num1 0.19 S/CO (0.00-0.79); HBsAGNum1 0.23 S/CO (0.00-0.99); Hepatitis B Core Antibody Nonreactive (Nonreactive); Hepatitis B Surface Antigen Negative (Negative); ~Hepatitis B Surface Antibody REACTIVE (Nonreactive)
[2025-02-13 18:09] LABS: Glucose, Whole Blood 152 mg/dL (60-115)
--- NOTE | 2025-02-13 19:13 | PC.NURSE ---
Assumed care @ 0700? Neuro/Resp: Sedated/intubated, on? propofol gtt. and fentanyl? per MAR. opens eyes occasionally to physical stimuli, does not track, does not follow commands, Flaccid extremities. (passive ROM performed).? Resp: ?ACVC vent. Support.? Cardiac: ?Sinus Rhythm?? GI: + bowel sounds, OGT in place,? tolerating tube feeds without signs of intolerance, POC Q6hr. : Anuric, Renee in place, patent /draining. Hemodialysis treatment today, 0.5L removed? Infectious: IV antibiotics? Lines: Hemodialysis catheter RIJ, Peripheral IVs
[2025-02-13 19:29] LABS: Hematocrit 21.4 % (37.0-47.0); Hemoglobin 7.7 g/dl (12.0-16.0); Mean Corpuscular Hemoglobin 29.6 pg (27.0-33.0); Mean Corpuscular Volume 82.3 fL (80.0-98.0); Mean Platelet Volume 10.3 fL (9.4-12.3); Platelet Count 182 X10*3/uL (160-400); Red Cell Distribution Width 17.9 % (11.0-16.0)
[2025-02-13 19:31] LABS: NRBC Pct Auto 1.6 /100WBC (0.0-0.2); WBC ABN SCTR FOR CBC 1; White Blood Count 29.7 X10*3/uL (4.8-10.8)
[2025-02-13 19:40] LABS: Vancomycin Random 19.5 mcg/mL (15-20)
[2025-02-13 19:48] LABS: Anion Gap 19 (12-20); Blood Urea Nitrogen 114 mg/dL (9-16); Calcium 8.3 mg/dL (8.4-10.2); Carbon Dioxide 23 mmol/L (22-29); Chloride 101 mmol/L (96-108); Creatinine Clr Calc Pharmacy 12.8; Estimated Glomerular Filt Rate 8; Glucose Random 163 mg/dL (60-115); Magnesium 2.9 mg/dL (1.6-2.6); Phosphorus 7.3 mg/dL (2.7-4.5); Potassium 4.6 mmol/L (3.3-5.1); Sodium 138 mmol/L (135-145)
[2025-02-13 19:50] LABS: Band Neutrophils Percent 7 % (3-5); Lymphocytes Absolute Manual 1.5 X10*3/uL (1.2-4.9); Lymphocytes Percent Manual 5 % (20-40); Monocytes Absolute Manual 0.9 X10*3/uL (0.1-1.2); Monocytes Percent Manual 3 % (2-11); Neutrophils Absolute Manual 27.3 X10*3/uL (2.0-8.3); Neutrophils Percent Manual 85 % (45-73); Nucleated Red Blood Cells 6 /100WBC (0-0); RBC Morphology NOTED; Target Cells 1+ (5-14) /OIF
[2025-02-13 19:51] LABS: Macrocytosis 1+ (5-14) /OIF; Schistocytes 1+ (0-2) /OIF; Tear Drop Cells 2+ (3-5) /OIF
[2025-02-13 19:52] LABS: Dohle Bodies PRESENT; Large Platelet PRESENT; Platelet Estimate NORMAL (NORMAL); Platelet Morphology Comment NOTED; Polychromasia 1+ (0-2) /OIF; Toxic Vacuolation PRESENT
[2025-02-13 20:15] LABS: Albumin Level 2.7 g/dL (3.5-5.0)
[2025-02-13] MEDS: fentaNYL citrate/NS 1,000 MCG/100 ML PLAST..BAG 10 MCG IVCONT (23:17)
[2025-02-14] VITALS (36 sets, daily range): BP systolic 128–174; BP diastolic 76–100; PULSE 74–95; RESP 14–29; TEMP 34.7–37.5; O2SAT 91–98; BMI 20.5
[2025-02-14 00:21] LABS: Glucose, Whole Blood 158 mg/dL (60-115)
[2025-02-14] MEDS: propofoL 1,000 MG/100 ML VIAL 17.7 MG IVCONT ×5 (00:29→20:40)
[2025-02-14] MEDS: Albumin Human 25 % 100 ML IV ×3 (02:04→14:19)
[2025-02-14] MEDS: Piperacillin Sodium/Tazobactam 2.25 GM in 0.9 % Sodium Chloride 50 ML IV ×3 (03:11→19:01)
[2025-02-14] MEDS: methylPREDNISolone Sod Succ 40 MG/ML VIAL IVPUSH (04:02)
[2025-02-14 05:22] LABS: VBG HCO3 23 mmol/L (22-26); VBG pCO2 31 mmHg; VBG pH 7.47 (7.32-7.43); VBG pO2 42 mmHg
[2025-02-14 05:24] LABS: Venous Blood Gas Refer to POC result
[2025-02-14] MEDS: Pantoprazole Sodium 40 MG/10 ML VIAL IVPUSH (05:30)
[2025-02-14 05:38] LABS: Hemoglobin 7.3 g/dl (12.0-16.0); Mean Corpuscular HGB Conc 36.1 g/dl (31.0-35.0); Mean Corpuscular Hemoglobin 29.7 pg (27.0-33.0); Mean Corpuscular Volume 82.1 fL (80.0-98.0); Mean Platelet Volume 10.7 fL (9.4-12.3); Platelet Count 163 X10*3/uL (160-400); Red Blood Count 2.46 X10*6/uL (4.20-5.50); White Blood Count 26.7 X10*3/uL (4.8-10.8)
[2025-02-14 05:40] LABS: NRBC Pct Auto 2.1 /100WBC (0.0-0.2)
[2025-02-14 05:43] LABS: Hematocrit 20.2 % (37.0-47.0)
--- NOTE | 2025-02-14 05:53 | PC.NURSE ---
Assumed care at 1900. Patient remains intubated and sedated, propofol and fentanyl gtts running per NOV. Patient emerges easily from sedation, straining against soft restraints and attempting to remove ETT. Verbal reassurance given and sedation adjusted per NOV. Positive cough, positive gag, positive pain response, opens eyes to physical stimuli and occasionally tracks, but does not follow commands. SR on tele, HR 80s-90s. Slight non-pitting edema to bilateral hands. Upon inspection at approx 0430, ETT noted to be 21 cm?@ lip from 22, ETT advanced by RT without issue. Right lower lung notably rhonchorous, see vent assessment. Abdomen soft and round, TF infusing towards goal, see TF assessment. Bonilla catheter in place draining scant concentrated dark yellow urine, per MD do not remove bonilla catheter. Skin warm dry and intact, repositioned Q2HR. Bed locked in lowest position, bed alarm on, patient's family updated at bedside by this RN.
[2025-02-14 05:57] LABS: Alanine Aminotransferase 17 U/L (0-31); Albumin Level 2.9 g/dL (3.5-5.0); Anion Gap 23 (12-20); Aspartate Amino Transferase 31 U/L (5-31); Bilirubin Total 0.9 mg/dL (0.0-1.0); Calcium 7.9 mg/dL (8.4-10.2); Carbon Dioxide 21 mmol/L (22-29); Chloride 101 mmol/L (96-108); Creatinine Clr Calc Pharmacy 12.6; Estimated Glomerular Filt Rate 8; Glucose Random 169 mg/dL (60-115); Magnesium 3.2 mg/dL (1.6-2.6); Potassium 4.7 mmol/L (3.3-5.1); Sodium 140 mmol/L (135-145); Total Protein 6.4 g/dL (6.5-8.0)
[2025-02-14 06:03] LABS: Alkaline Phosphatase 145 U/L (39-117); Blood Urea Nitrogen 127 mg/dL (9-16)
[2025-02-14 06:07] LABS: Blood Urea Nitrogen 132 mg/dL (9-16)
[2025-02-14 06:09] LABS: Blood Urea Nitrogen 186 mg/dL (9-16)
[2025-02-14 06:14] LABS: Band Neutrophils Percent 7 % (3-5); Lymphocytes Absolute Manual 0.8 X10*3/uL (1.2-4.9); Lymphocytes Percent Manual 3 % (20-40); Metamyelocytes Absolute 0.5 X10*3/uL; Metamyelocytes Percent 2 %; Neutrophils Absolute Manual 25.4 X10*3/uL (2.0-8.3); Neutrophils Percent Manual 88 % (45-73); Nucleated Red Blood Cells 2 /100WBC (0-0)
[2025-02-14 06:15] LABS: Large Platelet PRESENT; Microcytosis 1+ (5-14) /OIF; Ovalocytes 1+ (5-14) /OIF; Platelet Estimate NORMAL (NORMAL); Platelet Morphology Comment NOTED; RBC Morphology NOTED
[2025-02-14 06:16] LABS: Polychromasia 1+ (0-2) /OIF; Spherocytes 1+ (0-2) /OIF; Target Cells 1+ (5-14) /OIF; Tear Drop Cells 3+ (>5) /OIF
[2025-02-14 06:17] LABS: Smudge Cells PRESENT; Toxic Granulation PRESENT
[2025-02-14] MEDS: fentaNYL citrate/NS 1,000 MCG/100 ML PLAST..BAG 15 MCG IVCONT (06:58)
--- NOTE | 2025-02-14 07:00 | CA_ITS ---
Transthoracic Echocardiogram Patient (Last, First, Middle): Trey Maharaj, Gender: Female Date of : 1995 Age: 29 Procedure Date: 02/14/2025 Procedure Type: Transthoracic Echocardiogram Location: ICU Height: 172.72 cm Weight: 60.78 kg BSA: 1.72 m2 Heart Rate: 88 bpm BP: 133 / 80 mmHg Advertising Editor: Referring MD: Ana Thomson NP Symptoms: Sepsis/ GPCs in BC Study Quality: Fair ECG Rhythm: Sinus Conclusions: - The left ventricular systolic function is normal. The calculated ejection fraction is 55% by biplane method. - Tricuspid valve not well visualized. Possible leaflet prolapse but difficult to clearly assess. Ill-defined echodensity in the right ventricular aspect of tricuspid valve, cannot exclude vegetation. Mild tricuspid regurgitation. Findings Procedure Information The quality of the study was technically difficult. The study quality is limited by the presence of a ventilator. Left Ventricle Normal left ventricular cavity size. There is mildly increased left ventricular wall thickness. The left ventricular systolic function is normal. The calculated ejection fraction is 55% by biplane method. There is no evidence of regional wall motion abnormalities. Diastolic function is normal for age. Right Ventricle Mildly increased right ventricular cavity size. There is normal right ventricular systolic function. Atria Both atria are normal in size. Aortic Valve The aortic valve was not well visualized. The aortic valve structure and function is likely normal. There is no aortic valve stenosis. There is no aortic valve regurgitation. Mitral Valve The mitral valve appears normal. There is mild mitral valve regurgitation. There is no mitral valve stenosis. Pulmonic Valve The pulmonic valve is likely normal. Tricuspid Valve The tricuspid valve was not well visualized. There is mild tricuspid valve regurgitation. There is no evidence of pulmonary hypertension. Possible leaflet prolapse but difficult to visualize. Adjacent to the valve in the right ventricular aspect, ill defined echodensity. Cannot exclude vegetation. Great Vessels The asc aorta is normal in size. Venous The inferior vena cava is normal in size and collapses greater than 50% with inspiration. (intubated) Pericardium/Pleural There is no evidence of pericardial effusion. Prior Study Comparison No significant change compared to prior study dated: 04/02/2022. Reviewed prior images, but due to limited quality unable to compare. Measurements 2D Linear Measurements IVSd: 1.08 0.6-0.9/0.6-1.0 cm LVIDd: 4.26 3.9-5.3/4.2-5.9 cm LVIDd Index: 2.48 2.4-3.2/2.2-3.1 cm/m2 LVIDs: 3.06 2.0-3.6 cm LVPWd: 1.09 0.7-1.1 cm LA Diam: 2.60 2.7-3.8/3.0-4.0 cm LAIDs Index: 1.51 1.5-2.3 cm/m2 LV Mass: 196.08 67-162/88-224 g LV Mass Index: 114.00 43-95/49-115 g/m2 LVOT Diam: 2.40 3.0+(-)1.3 cm 2D Systolic Function EF 4C: 55.80 >55% EF 2C: 59.50 >55% EF BiP: 55.40 >55% Mitral Valve MV VTI: 0.34 MV Pk Didier: 1.45 MV Mn Didier: 0.78 MV Pk Grad: 8.00 MV Mn Grad: 3.00 MV Pk E: 1.12 MV PK A: 0.74 MV Decel Time: 141.00 E/A: 1.50 E'Lateral: 12.20 E'Medial: 10.70 E/E' Med: 10.50 E/E' Lat: 9.20 PHT: 41.00 MVA PHT: 5.37 MVA Continuity: 2.55 Decel [place]: 7.96 Aortic Valve AoV Pk Didier: 1.43 AoV Mn Didier: 0.90 AoV VTI: 0.27 AoV Pk Grad: 8.00 Aov Mn Grad: 4.00 JASPAL Cont.VTI: 3.24 LVOT LVOT Pk Didier: 1.04 LVOT Mn Didier: 0.65 LVOT VTI: 0.19 LVOT Pk Grad: 4.00 LVOT Mn Grad: 2.00 LVOT Diam: 2.40 LVOT Area: 4.52 Diastolic Function MV Pk E: 1.12 MV Pk A: 0.74 E/A: 1.50 E'Medial: 10.70 E/E' Med: 10.50 E' Laterial: 12.20 E/E' Lat: 9.20 Right Ventricle TAPSE (mm): 22.90 TVS' Didier: 11.00 Tricuspid Valve TR Pk Didier: 2.59 TR Pk Grad: 27.00 RA Press: 3.00 RVSP: 30.00 Great Vessels Aorta Sinus of Valsalva: 2.60 2.0-3.5 cm Ao Asc: 2.80 2.1-3.4 cm Pulmonary Valve PV Pk Didier: 1.14 Peak PV Grad: 5.00 Updated in Other Vendor System with Status of Final Chaz Cole MD electronically signed on 02/14/2025 10:38:38 AM with status of Final
[2025-02-14] MEDS: 0.9 % Sodium Chloride Flush 3 ML SYRINGE IVFLUSH ×3 (07:27→20:53)
[2025-02-14] MEDS: Chlorhexidine Gluc Oral Rinse 15 ML MOUTHWASH BUCCAL ×3 (08:27→20:06)
--- NOTE | 2025-02-14 10:10 | P.PNCC_ITS ---
Subjective Subjective Date of Service: 02/14/25 Interval History: 29-year-old lady with underlying lupus with lupus nephritis on 10 mg prednisone daily admitted on 02/11/2025 with dyspnea and hypoxia secondary to right-sided pneumonia with polymicrobial bacteremia requiring intubation and ventilatory support. Hospital course further complicated by acute renal failure requiring initiation hemodialysis. No events overnight. Critical Care Time (minutes): 60 Physical Exam 2 Vital Signs: Vital Signs: Last Vital Signs Temp 98.2 F 02/14/25 09:00 Pulse 81 02/14/25 09:00 Resp 20 02/14/25 09:00 BP 151/85 H 02/14/25 09:00 Pulse Ox 96 02/14/25 09:00 O2 Del Method Mechanical Ventil ation 02/14/25 09:00 O2 Flow Rate 50 02/12/25 11:57 FiO2 21 02/14/25 09:37 Oxygen Flow Rate 40 02/11/25 21:17 BMI result Body Mass Index 20.5 Const: General: no acute distress and other (Sedated on ventilatory support) Eyes: Sclerae: sclerae normal EOM: EOMs intact bilaterally Neck: Neck: Yes no lymphadenopathy, Yes trachea midline and Yes supple Resp: Auscultation: clear to auscultation bilaterally Cardio: Rate: regular rate Rhythm: regular rhythm Heart sounds: no gallops, no murmurs and no rubs GI: Palpation (GI): Soft to palpation and Other GI palpation findings present ( Nontender) Auscultation: normal bowel sounds Extrem: General: Yes no pedal edema, No clubbing and No cyanosis Objective Data Labs 02/14/25 05:07 02/14/25 05:07 Labs: Laboratory Results - last 24 hr 02/11/25 02/11/25 02/13/25 17:44 18:41 05:21 WBC 28.4 H RBC Hgb Hct MCV MCH MCHC RDW Plt Count MPV Immature Gran % (Auto) Neut % (Auto) Lymph % (Auto) [place] % (Auto) Eos % (Auto) Baso % (Auto) Lymph # (Auto) [place] # (Auto) Eos # (Auto) Baso # (Auto) Abs Immat Gran (auto) Absolute Neuts (auto) Absolute Nucleated RBC Nucleated RBC % (auto) Neutrophils % (Manual) Band Neutrophils % Lymphocytes % (Manual) Monocytes % (Manual) Metamyelocytes % Abs Neuts (Manual) 26.4 H Lymphocytes # (Manual) 1.1 L Monocytes # (Manual) 0.9 Metamyelocytes # Nucleated RBCs Smudge Cells Toxic Granulation Toxic Vacuolation Dohle Bodies Platelet Estimate Large Platelets Plt Morphology Comment RBC Morphology Polychromasia Microcytosis Macrocytosis Spherocytes Target Cells Tear Drop Cells Ovalocytes Schistocytes VBG pH VBG pCO2 VBG pO2 VBG HCO3 VBG O2 Saturation VBG Base Excess Sodium Potassium Chloride Carbon Dioxide Anion Gap BUN 186 H 132 H Creatinine Estim Creat Clear Calc Estimated GFR POC Glucose Random Glucose Calcium Phosphorus Magnesium Total Bilirubin AST ALT Alkaline Phosphatase Total Protein Albumin Random Vancomycin Hep Bs Antigen Hep Bs Antibody Hep B Core Total Ab Blood Type A Positive Antibody Screen NEGATIVE Crossmatch See Detail 02/13/25 02/13/25 02/13/25 12:16 12:59 17:58 WBC RBC Hgb Hct MCV MCH MCHC RDW Plt Count MPV Immature Gran % (Auto) Neut % (Auto) Lymph % (Auto) [place] % (Auto) Eos % (Auto) Baso % (Auto) Lymph # (Auto) [place] # (Auto) Eos # (Auto) Baso # (Auto) Abs Immat Gran (auto) Absolute Neuts (auto) Absolute Nucleated RBC Nucleated RBC % (auto) Neutrophils % (Manual) Band Neutrophils % Lymphocytes % (Manual) Monocytes % (Manual) Metamyelocytes % Abs Neuts (Manual) Lymphocytes # (Manual) Monocytes # (Manual) Metamyelocytes # Nucleated RBCs Smudge Cells Toxic Granulation Toxic Vacuolation Dohle Bodies Platelet Estimate Large Platelets Plt Morphology Comment RBC Morphology Polychromasia Microcytosis Macrocytosis Spherocytes Target Cells Tear Drop Cells Ovalocytes Schistocytes VBG pH VBG pCO2 VBG pO2 VBG HCO3 VBG O2 Saturation VBG Base Excess Sodium Potassium Chloride Carbon Dioxide Anion Gap BUN Creatinine Estim Creat Clear Calc Estimated GFR POC Glucose 115 152 H Random Glucose Calcium Phosphorus Magnesium Total Bilirubin AST ALT Alkaline Phosphatase Total Protein Albumin Random Vancomycin Hep Bs Antigen Negative Hep Bs Antibody REACTIVE Hep B Core Total Ab Nonreactive Blood Type Antibody Screen Crossmatch 02/13/25 02/14/25 02/14/25 19:16 00:06 05:07 WBC 29.7 H 26.7 H RBC 2.60 L 2.46 L Hgb 7.7 L 7.3 L Hct 21.4 L 20.2 L* MCV 82.3 82.1 MCH 29.6 29.7 MCHC 36.0 H 36.1 H RDW 17.9 H 18.0 H Plt Count 182 D 163 MPV 10.3 10.7 Immature Gran % (Auto) Cancelled Cancelled Neut % (Auto) Cancelled Cancelled Lymph % (Auto) Cancelled Cancelled [place] % (Auto) Cancelled Cancelled Eos % (Auto) Cancelled Cancelled Baso % (Auto) Cancelled Cancelled Lymph # (Auto) Cancelled Cancelled Pi[place] # (Auto) Cancelled Cancelled Eos # (Auto) Cancelled Cancelled Baso # (Auto) Cancelled Cancelled Abs Immat Gran (auto) Cancelled Cancelled Absolute Neuts (auto) Cancelled Cancelled Absolute Nucleated RBC 0.490 H 0.570 H Nucleated RBC % (auto) 1.6 H 2.1 H Neutrophils % (Manual) 85 H 88 H Band Neutrophils % 7 H 7 H Lymphocytes % (Manual) 5 L 3 L Monocytes % (Manual) 3 Metamyelocytes % 2 Abs Neuts (Manual) 27.3 H 25.4 H Lymphocytes # (Manual) 1.5 0.8 L Monocytes # (Manual) 0.9 Metamyelocytes # 0.5 Nucleated RBCs 6 H 2 H Smudge Cells PRESENT Toxic Granulation PRESENT Toxic Vacuolation PRESENT Dohle Bodies PRESENT Platelet Estimate NORMAL NORMAL Large Platelets PRESENT PRESENT Plt Morphology Comment NOTED NOTED RBC Morphology NOTED NOTED Polychromasia 1+ (0-2) 1+ (0-2) Microcytosis 1+ (5-14) Macrocytosis 1+ (5-14) Spherocytes 1+ (0-2) Target Cells 1+ (5-14) 1+ (5-14) Tear Drop Cells 2+ (3-5) 3+ (>5) Ovalocytes 1+ (5-14) Schistocytes 1+ (0-2) VBG pH VBG pCO2 VBG pO2 VBG HCO3 VBG O2 Saturation VBG Base Excess Sodium 138 140 Potassium 4.6 4.7 Chloride 101 101 Carbon Dioxide 23 21 L Anion Gap 19 23 H BUN 114 H 127 H Creatinine 5.93 H* 6.23 H* Estim Creat Clear Calc 12.8 12.6 Estimated GFR 8 8 POC Glucose 158 H Random Glucose 163 H 169 H Calcium 8.3 L D 7.9 L Phosphorus 7.3 H 8.0 H Magnesium 2.9 H 3.2 H Total Bilirubin 0.9 AST 31 ALT 17 Alkaline Phosphatase 145 H Total Protein 6.4 L Albumin 2.7 L 2.9 L Random Vancomycin 19.5 Hep Bs Antigen Hep Bs Antibody Hep B Core Total Ab Blood Type Antibody Screen Crossmatch 02/14/25 05:18 WBC RBC Hgb Hct MCV MCH MCHC RDW Plt Count MPV Immature Gran % (Auto) Neut % (Auto) Lymph % (Auto) [place] % (Auto) Eos % (Auto) Baso % (Auto) Lymph # (Auto) [place] # (Auto) Eos # (Auto) Baso # (Auto) Abs Immat Gran (auto) Absolute Neuts (auto) Absolute Nucleated RBC Nucleated RBC % (auto) Neutrophils % (Manual) Band Neutrophils % Lymphocytes % (Manual) Monocytes % (Manual) Metamyelocytes % Abs Neuts (Manual) Lymphocytes # (Manual) Monocytes # (Manual) Metamyelocytes # Nucleated RBCs Smudge Cells Toxic Granulation Toxic Vacuolation Dohle Bodies Platelet Estimate Large Platelets Plt Morphology Comment RBC Morphology Polychromasia Microcytosis Macrocytosis Spherocytes Target Cells Tear Drop Cells Ovalocytes Schistocytes VBG pH 7.47 H VBG pCO2 31 VBG pO2 42 VBG HCO3 23 VBG O2 Saturation 72.0 VBG Base Excess 0.0 Sodium Potassium Chloride Carbon Dioxide Anion Gap BUN Creatinine Estim Creat Clear Calc Estimated GFR POC Glucose Random Glucose Calcium Phosphorus Magnesium Total Bilirubin AST ALT Alkaline Phosphatase Total Protein Albumin Random Vancomycin Hep Bs Antigen Hep Bs Antibody Hep B Core Total Ab Blood Type Antibody Screen Crossmatch Microbiology Microbiology Results: Microbiology 02/12/25 09:59 Blood - Venous Blood Culture - Preliminary Prelim: GPC Gram Stain only 02/12/25 09:48 Blood - Venous Blood Culture - Preliminary Prelim: GPC Gram Stain only 02/11/25 17:44 Blood - Venous Blood Culture - Preliminary Gram negative peterson 02/11/25 17:17 Blood - Venous Blood Culture - Preliminary Gram negative peterson Progress Note: A&P Assessment and plan (1) emt intermediate (current) use of immunosuppressive biologic: Status: Acute (2) Acute kidney injury superimposed on chronic kidney disease: Status: Acute (3) Systemic lupus erythematosus: Status: Acute (4) Right lower lobe pneumonia: Status: Acute (5) Acute hypoxic respiratory failure: Status: Acute (6) Bacteremia: Status: Acute Plan Assessment: 29-year-old lady with underlying lupus and lupus nephritis on chronic prednisone admitted with right-sided pneumonia and polymicrobial bacteremia requiring intubation and ventilatory support, further complicated by acute renal failure requiring hemodialysis support Plan: Neuro: No acute issues. Cardiac: No acute issues. Pulmonary: Acute hypoxic respiratory failure secondary to right-sided pneumonia, continue to titrate off ventilatory support as tolerated. Renal: Acute renal failure on the background of lupus nephritis requiring hemodialysis. Nephrology service care appreciated. Continue to monitor renal indices and urine output. Endo: No acute issues. GI: No acute issues. ID: Gram-positive and Gram-negative bacteremia. Continue empiric antibiotics. Repeat cultures are pending. Heme/Onc: No acute issues. Psych: No acute issues. Miscellaneous: Lupus with lupus nephritis on chronic systemic glucocorticoids. Prophylaxis: Heparin, ppi Diet: Tube feeds Critical care time spent: 60 minute Quality Stroke Does the patient have a stroke diagnosis?: No VTE Prior VTE?: No VTE Risk Level:: Medical - moderate - high VTE Device Contraindication: N/A - Device Ordered VTE Drug Contraindication: Treatment Not Indicated
--- NOTE | 2025-02-14 10:10 | MHC.CLN ---
PT IS INTUBATED AND SEDATED DISCUSSED AT ROUNDS WITH MD-PLAN FOR EXTUBATION TODAY PT CURRENTLY RECEIVING NEPRO AT 50ML/HR AND OVER EXCEEDING KCALS/PROTEIN NEEDS RECOMMEND REDUCING NEPRO TO 30ML/HR TO PROVIDE 1296KCALS (1763KCALS WITH SEDATION; 29KCALS/KG), 58G PROTEIN (.95G/KG), 523ML FREE WATER FROM FORMULA MONITOR TOLERANCE AND LYTES SEE FULL CLINICAL NUTRITION ASSESSMENT
[2025-02-14] MEDS: methylPREDNISolone Sod Succ 40 MG/ML VIAL 125 MG IVPUSH (11:01)
[2025-02-14] MEDS: Heparin Sodium,Porcine 5,000 UNIT/ML VIAL 5000 UNIT SUBCUT ×2 (11:01→18:24)
--- NOTE | 2025-02-14 11:19 | PM.CNNEP ---
History of Present Illness Reason for Consult Consult date: 02/14/25 Chief Complaint Chief complaint: Shock/renal failure History of Present Illness Narrative: 29-year-old female with lupus complicated by lupus nephritis (on 10mg prednisone), history of pericardial effusion, hypertension, anemia, who presented to the emergency department with complaints of shortness of breath.? She had 2 days of dyspnea, pleuritic chest pain, cough, fevers, poor p.o. intake, nausea, vomiting and diarrhea.?She has not been on any other immunosuppression other than low dose prednisone. In the emergency department temperature 96.6 degrees, tachycardic to 120s, tachypneic to 40s, normotensive, requiring initiation of high-flow nasal cannula. Laboratory data was significant for WBC of 15, hemoglobin 7, hematocrit 19.5, potassium 6.1, serum bicarb 10, anion gap 28, BUN over 125, creatinine 11.96, random glucose 58, lactic 2.6, AST 111, ALT 42, alk phos 146, lactate dehydrogenase 715, CK 583, CRP 36.8, procalcitonin > 100; Venous gas:? 7.34/17/91/9 , base excess -14.3. Chest CT showed with right lung multifocal pneumonia. She needed intubation and ventilation and initiation of renal replacement. Nephrology has been consulted to assist in her clinical care during her current hospital stay. Review of Systems Review of Systems Yes unobtainable due to endotracheal tube PMFSH Past Medical History Medical History (Updated 02/14/25 @ 10:13 by Chino Duong MD) Lupus nephritis Pericardial effusion Essential hypertension Rash Acute on chronic anemia Abnormal uterine bleeding Hypertensive urgency Anemia Depression Anxiety Fibromyalgia Lupus Family History Family History Mother Hypertension Type 2 diabetes mellitus Lupus Arthritis Maternal Grandmother Hypertension Type 2 diabetes mellitus Arthritis Surgical History Surgical History Hx of hernia repair Social History Social History Household Members: Spouse and Children Housing: Apartment Do you presently have visiting nurse or other home services: No Alcohol intake: former Comment: achy-lupus exacerbation Patient Tobacco Use Status: Current everyday Tobacco user Tobacco use type: Cigarette Cigarette Packs Per Day: 0.5 Cigarettes Per Day: 10.0 Years Smoked: 7 Smoked in Last 30 Days: Yes Use of substances other than those prescribed or required for medical reasons: Yes Substance Use Type: Marijuana Currently Displaying Signs/Symptoms of Drug Intoxication Withdrawal: No Have you been hit, kicked, punched, or otherwise hurt by someone within the past year? If so, by whom?: No Do you feel safe in your current relationship?: Yes Is there a partner from a previous relationship who is making you feel unsafe now?: No Are you made to feel afraid or neglected: No Advance Directives: Yes Advance Directives on File: Yes Advance Directives Date on File: 04/03/22 Do you have a plan to hurt others: No Plan Recently lost weight without trying: No Patient : No : No Poor oral hygiene: No service: No Current occupational status: disabled Meds Allergies Allergy/AdvReac Type Severity Reaction Status Date / Time mycophenolate mofetil AdvReac Intermediate GI upset Verified 02/11/25 16:49 gabapentin AdvReac Unknown Hives Verified 02/11/25 16:49 Active Medications: Current Medications Chlorhexidine Gluconate (Chlorhexidine Gluc Oral Rinse 15 Ml Mouthwash) 15 ml BUCCAL TID [facility] Last Admin: 02/14/25 08:27 Dose: 15 ml Heparin Sodium (Porcine) (Heparin Sodium,Porcine 5,000 Unit/Ml Vial) 5,000 unit SUBCUT Q8H [facility] Last Admin: 02/14/25 11:01 Dose: 5,000 unit Heparin Sodium (Porcine) (Heparin Sodium,Porcine 5,000 Unit/Ml Vial) 5,000 unit INTRACATH ONCE ONE Stop: 02/15/25 06:01 Piperacillin Sod/Tazobactam (Sod 2.25 gm/ Sodium Chloride) 50 mls @ 100 mls/hr IV Q8H [facility] Last Infusion: 02/14/25 03:43 Dose: Infused Vancomycin HCl 500 mg/ Sodium (Chloride) 110 mls @ 110 mls/hr IV ONCE ONE Stop: 02/12/25 22:59 Propofol (Diprivan) 1,000 mg in 100 mls @ 0 mls/hr IVCONT .Q0M [facility]; Protocol Last Titration: 02/14/25 09:49 Dose: 0 mcg/kg/min, 0 mls/hr Fentanyl (Sublimaze/Ns) 1,000 mcg in 100 mls @ 0 mls/hr IVCONT .Q0M [facility]; Protocol Last Titration: 02/14/25 09:49 Dose: 0 mcg/hr, 0 mls/hr Albumin Human (Kedbumin 25 %) 100 mls @ 100 mls/hr IV Q6H [facility] Stop: 02/14/25 15:59 Last Infusion: 02/14/25 09:46 Dose: Infused Methylprednisolone Sodium Succinate (Methylprednisolone Sod Succ 40 Mg/Ml Vial) 125 mg IVPUSH Q6H [facility] Stop: 02/17/25 05:01 Last Admin: 02/14/25 11:01 Dose: 125 mg Naloxone HCl (Naloxone Hcl 0.4 Mg/Ml Vial) 0.2 mg IVPUSH Q2M PRN PRN Reason: Excessive sedation or RR < 8 Pantoprazole Sodium (Pantoprazole Sodium 40 Mg/10 Ml Vial) 40 mg IVPUSH DAILY@0630 [facility] Last Admin: 02/14/25 05:30 Dose: 40 mg Pharmacy Consult (Consult Rx Vancomycin Dosing) 1 each MISCELLANE DAILY PRN PRN Reason: Consult order Sodium Chloride (0.9 % Sodium Chloride Flush 3 Ml Syringe) 3 ml IVFLUSH QSHIFT [facility] Last Admin: 02/14/25 07:27 Dose: 3 ml Physical Exam Vital Signs: Last Vital Signs Temp 98.4 F 02/14/25 10:00 Pulse 85 02/14/25 10:00 Resp 25 H 02/14/25 10:00 BP 146/87 H 02/14/25 10:00 Pulse Ox 92 02/14/25 11:05 O2 Del Method Mechanical Ventilation 02/14/25 10:00 O2 Flow Rate 50 02/12/25 11:57 FiO2 21 02/14/25 11:09 Oxygen Flow Rate 40 02/11/25 21:17 BMI result Body Mass Index 20.5 Const General: no acute distress Eyes General: appearance normal, both eyes and all related structures Resp Auscultation: diminished lung sounds Cardio Rate: regular rate GI Palpation (GI): Soft to palpation Neuro Other: Intubated Extrem General: Yes no pedal edema Results Lab Results 02/14/25 05:07 02/14/25 05:07 Lab results: Chemistry 02/11/25 02/11/25 02/12/25 17:44 21:59 05:01 Sodium 136 138 138 Potassium 6.1 H* D 5.5 H 5.8 H Carbon Dioxide 10 L* D 13 L 16 L BUN 186 H 171 H 169 H Creatinine 11.96 H* 10.84 H* 10.29 H* Calcium 8.6 D 8.4 8.1 L Phosphorus 7.4 H 6.1 H 02/12/25 02/12/25 02/13/25 12:58 19:54 05:21 Sodium 139 140 139 Potassium 5.2 H 4.8 5.4 H Carbon Dioxide 22 24 23 BUN 170 H 122 H 132 H Creatinine 9.78 H* 6.79 H* 7.60 H* Calcium 8.0 L 8.2 L 7.6 L D Phosphorus 4.6 H 7.1 H 02/13/25 02/14/25 19:16 05:07 Sodium 138 140 Potassium 4.6 4.7 Carbon Dioxide 23 21 L BUN 114 H 127 H Creatinine 5.93 H* 6.23 H* Calcium 8.3 L D 7.9 L Phosphorus 7.3 H 8.0 H Hematology 02/11/25 02/12/25 02/12/25 17:44 05:01 12:58 WBC 15.0 H 23.3 H 29.6 H Hgb 7.0 L* D 7.7 L 8.0 L Plt Count 394 D 295 D 313 02/13/25 02/13/25 02/14/25 05:21 19:16 05:07 WBC 28.4 H 29.7 H 26.7 H Hgb 7.0 L* 7.7 L 7.3 L Plt Count 288 182 D 163 Urinalysis 02/11/25 20:51 Urine Color Dark Yellow Urine Appearance Cloudy Urine pH 5.0 Ur Specific [place] >= 1.030 H Urine Protein >=1000 (4+) H Urine Glucose (UA) Negative Urine Ketones Trace Urine Blood Trace H Urine Nitrite Negative Ur Leukocyte Esterase Trace H Urine RBC 3-5 H Urine WBC 0-5 Ur Squamous Epith Cells 3-5 Hyaline Casts >20 Assessment and Plan (1) Acute kidney injury superimposed on chronic kidney disease: Status: Acute Plan [place] likely due to tubular injury from sepsis Likely has active lupus nephritis Complement level pending Has been initiated on HD Shall dialyze today and tomorrow Shall give 500 mg of Methyl pred daily for 3 days 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
[2025-02-14 12:22] LABS: Glucose, Whole Blood 140 mg/dL (60-115)
[2025-02-14] MEDS: fentaNYL citrate/NS 1,000 MCG/100 ML PLAST..BAG 17.5 MCG IVCONT ×2 (14:19→20:06)
--- NOTE | 2025-02-14 14:28 | MHC.CM.PN ---
PT REMAINS IN ICU ON VENTILATORY SUPPORT/ UNDERGOING HD. PLAN FOR POSSIBLE EXTUBATION TODAY . CM WILL CONTINUE TO FOLLOW FOR ANY CHANGES TO PLAN.
[2025-02-14 18:24] LABS: Glucose, Whole Blood 151 mg/dL (60-115)
[2025-02-14 20:20] LABS: Hematocrit 21.5 % (37.0-47.0); Mean Corpuscular HGB Conc 37.2 g/dl (31.0-35.0); Mean Corpuscular Hemoglobin 30.7 pg (27.0-33.0); Mean Corpuscular Volume 82.4 fL (80.0-98.0); NRBC Pct Auto 2.8 /100WBC (0.0-0.2); PLT ABN DIST 1; Platelet Count 152 X10*3/uL (160-400); Red Blood Count 2.61 X10*6/uL (4.20-5.50); Red Cell Distribution Width 17.9 % (11.0-16.0); White Blood Count 26.6 X10*3/uL (4.8-10.8)
[2025-02-14 20:26] LABS: Vancomycin Random 12.6 mcg/mL (15-20)
[2025-02-14 20:28] LABS: Anion Gap 21 (12-20); Blood Urea Nitrogen 103 mg/dL (9-16); Carbon Dioxide 23 mmol/L (22-29); Chloride 101 mmol/L (96-108); Creatinine Clr Calc Pharmacy 17.5; Estimated Glomerular Filt Rate 11; Glucose Random 140 mg/dL (60-115); Potassium 3.9 mmol/L (3.3-5.1); Sodium 141 mmol/L (135-145)
[2025-02-14] MEDS: vancomycin HCL 500 MG in 0.9 % Sodium Chloride 100 ML 110 MG IV (20:52)
[2025-02-14 23:09] LABS: Anti DNA DS Antibody 24 IU/mL
[2025-02-15] VITALS (36 sets, daily range): BP systolic 148–167; BP diastolic 85–101; PULSE 74–103; RESP 19–36; TEMP 35–38; O2SAT 91–100; BMI 19.4
[2025-02-15 00:50] LABS: Glucose, Whole Blood 152 mg/dL (60-115)
[2025-02-15] MEDS: Heparin Sodium,Porcine 5,000 UNIT/ML VIAL 5000 UNIT SUBCUT ×3 (01:38→17:30)
[2025-02-15] MEDS: fentaNYL citrate/NS 1,000 MCG/100 ML PLAST..BAG 17.5 MCG IVCONT ×2 (02:13→07:27)
[2025-02-15] MEDS: propofoL 1,000 MG/100 ML VIAL 17.7 MG IVCONT ×2 (02:32→06:31)
[2025-02-15] MEDS: Piperacillin Sodium/Tazobactam 2.25 GM in 0.9 % Sodium Chloride 50 ML IV ×3 (03:15→19:22)
[2025-02-15] MEDS: Pantoprazole Sodium 40 MG/10 ML VIAL IVPUSH (05:32)
[2025-02-15 05:45] LABS: VBG Base Excess 1.2 mmol/L; VBG HCO3 19 mmol/L (22-26); VBG pCO2 17 mmHg; VBG pH 7.67 (7.32-7.43); VBG pO2 37 mmHg
[2025-02-15] MEDS: Labetalol HCL 100 MG/20 ML VIAL 10 MG IVPUSH (05:47)
[2025-02-15 06:38] LABS: Hematocrit 24.6 % (37.0-47.0); Hemoglobin 8.6 g/dl (12.0-16.0); Mean Corpuscular Hemoglobin 29.8 pg (27.0-33.0); Mean Corpuscular Volume 85.1 fL (80.0-98.0); Platelet Count 140 X10*3/uL (160-400); Red Blood Count 2.89 X10*6/uL (4.20-5.50); Red Cell Distribution Width 18.5 % (11.0-16.0)
[2025-02-15 06:54] LABS: Alanine Aminotransferase 13 U/L (0-31); Albumin Level 3.2 g/dL (3.5-5.0); Alkaline Phosphatase 132 U/L (39-117); Anion Gap 23 (12-20); Aspartate Amino Transferase 25 U/L (5-31); Bilirubin Total 0.8 mg/dL (0.0-1.0); Blood Urea Nitrogen 125 mg/dL (9-16); Calcium 7.9 mg/dL (8.4-10.2); Carbon Dioxide 19 mmol/L (22-29); Chloride 102 mmol/L (96-108); Creatinine Clr Calc Pharmacy 14.7; Estimated Glomerular Filt Rate 10; Glucose Random 163 mg/dL (60-115); Magnesium 2.8 mg/dL (1.6-2.6); Phosphorus 5.6 mg/dL (2.7-4.5); Potassium 4.3 mmol/L (3.3-5.1); Sodium 140 mmol/L (135-145)
[2025-02-15 06:56] LABS: NRBC Pct Auto 3.1 /100WBC (0.0-0.2); PLT ABN DIST 1; WBC ABN SCTR FOR CBC 1; White Blood Count 27.2 X10*3/uL (4.8-10.8)
[2025-02-15 07:07] LABS: Atypical Lymph Absolute Manual 0.5 x10*3/uL; Atypical Lymphs Percent Manual 2 % (0-6); Band Neutrophils Percent 3 % (3-5); Lymphocytes Absolute Manual 1.6 X10*3/uL (1.2-4.9); Lymphocytes Percent Manual 6 % (20-40); Metamyelocytes Absolute 0.5 X10*3/uL; Metamyelocytes Percent 2 %; Monocytes Absolute Manual 2.2 X10*3/uL (0.1-1.2); Monocytes Percent Manual 8 % (2-11); Neutrophils Absolute Manual 22.3 X10*3/uL (2.0-8.3); Neutrophils Percent Manual 79 % (45-73); Nucleated Red Blood Cells 4 /100WBC (0-0)
[2025-02-15 07:10] LABS: Burr Cells 1+ (0-2) /OIF; Large Platelet PRESENT; Macrocytosis 1+ (5-14) /OIF; Microcytosis 1+ (5-14) /OIF; Platelet Estimate SLIGHTLY DECREASED (NORMAL); Platelet Morphology Comment NOTED; Polychromasia 1+ (0-2) /OIF; RBC Morphology NOTED; Target Cells 1+ (5-14) /OIF; Tear Drop Cells 2+ (3-5) /OIF
[2025-02-15 07:11] LABS: Smudge Cells PRESENT; WBC Morphology Comment HYPOGRANULAR
[2025-02-15] MEDS: Chlorhexidine Gluc Oral Rinse 15 ML MOUTHWASH BUCCAL (07:27)
[2025-02-15] MEDS: 0.9 % Sodium Chloride Flush 3 ML SYRINGE IVFLUSH ×3 (07:27→23:47)
[2025-02-15 08:28] LABS: Venous Blood Gas Refer to POC result
--- NOTE | 2025-02-15 09:57 | P.PNCC_ITS ---
Subjective Subjective Date of Service: 02/15/25 Interval History: 29-year-old lady with underlying lupus with lupus nephritis on 10 mg prednisone daily admitted on 02/11/2025 with dyspnea and hypoxia secondary to right-sided pneumonia with polymicrobial bacteremia requiring intubation and ventilatory support. Hospital course further complicated by acute renal failure requiring initiation hemodialysis. Elevated by nephrology service with concern for possible lupus nephritis flare, started on high-dose systemic glucocorticoids. No events overnight. Extubated uneventfully this a.m. Critical Care Time (minutes): 60 Physical Exam 2 Vital Signs: Vital Signs: Last Vital Signs Temp 97.0 F 02/15/25 09:00 Pulse 91 02/15/25 09:00 Resp 30 H 02/15/25 09:00 BP 162/96 H 02/15/25 09:00 Pulse Ox 96 02/15/25 09:00 O2 Del Method High Flow Nasal C annula 02/15/25 09:00 O2 Flow Rate 45 02/15/25 09:00 FiO2 30 02/15/25 09:00 Oxygen Flow Rate 40 02/11/25 21:17 BMI result Body Mass Index 19.4 Const: General: no acute distress, alert and awake Eyes: Sclerae: sclerae normal EOM: EOMs intact bilaterally Neck: Neck: Yes no lymphadenopathy, Yes trachea midline and Yes supple Resp: Effort & Inspection: normal respiratory effort and no respiratory distress Auscultation: clear to auscultation bilaterally Cardio: Rate: regular rate Rhythm: regular rhythm Heart sounds: no gallops, no murmurs and no rubs GI: Palpation (GI): Soft to palpation and Other GI palpation findings present ( Nontender) Auscultation: normal bowel sounds Extrem: General: Yes no pedal edema, No clubbing and No cyanosis Objective Data Labs 02/15/25 05:32 02/15/25 05:32 Labs: Laboratory Results - last 24 hr 02/11/25 02/11/25 02/14/25 17:44 20:37 12:14 WBC RBC Hgb Hct MCV MCH MCHC RDW Plt Count MPV Immature Gran % (Auto) Neut % (Auto) Lymph % (Auto) [place] % (Auto) Eos % (Auto) Baso % (Auto) Lymph # (Auto) [place] # (Auto) Eos # (Auto) Baso # (Auto) Abs Immat Gran (auto) Absolute Neuts (auto) Absolute Nucleated RBC Nucleated RBC % (auto) Neutrophils % (Manual) Band Neutrophils % Lymphocytes % (Manual) Atypical Lymphs % (Man) Monocytes % (Manual) Metamyelocytes % Abs Neuts (Manual) Lymphocytes # (Manual) Atyp Lymphs # (Manual) Monocytes # (Manual) Metamyelocytes # Nucleated RBCs Smudge Cells WBC Morphology Comment Platelet Estimate Large Platelets Plt Morphology Comment RBC Morphology Polychromasia Microcytosis Macrocytosis Target Cells Tear Drop Cells [place] Cells Smear Path Review SEE NOTE VBG pH VBG pCO2 VBG pO2 VBG HCO3 VBG O2 Saturation VBG Base Excess Sodium Potassium Chloride Carbon Dioxide Anion Gap BUN Creatinine Estim Creat Clear Calc Estimated GFR POC Glucose 140 H Random Glucose Calcium Phosphorus Magnesium Total Bilirubin AST ALT Alkaline Phosphatase Total Protein Albumin Random Vancomycin Double Strand DNA Ab 24 H 02/14/25 02/14/25 02/15/25 18:14 20:02 00:37 WBC 26.6 H RBC 2.61 L Hgb 8.0 L Hct 21.5 L MCV 82.4 MCH 30.7 MCHC 37.2 H RDW 17.9 H Plt Count 152 L MPV TNP Immature Gran % (Auto) Neut % (Auto) Lymph % (Auto) [place] % (Auto) Eos % (Auto) Baso % (Auto) Lymph # (Auto) [place] # (Auto) Eos # (Auto) Baso # (Auto) Abs Immat Gran (auto) Absolute Neuts (auto) Absolute Nucleated RBC 0.740 H Nucleated RBC % (auto) 2.8 H Neutrophils % (Manual) Band Neutrophils % Lymphocytes % (Manual) Atypical Lymphs % (Man) Monocytes % (Manual) Metamyelocytes % Abs Neuts (Manual) Lymphocytes # (Manual) Atyp Lymphs # (Manual) Monocytes # (Manual) Metamyelocytes # Nucleated RBCs Smudge Cells WBC Morphology Comment Platelet Estimate Large Platelets Plt Morphology Comment RBC Morphology Polychromasia Microcytosis Macrocytosis Target Cells Tear Drop Cells [place] Cells Smear Path Review VBG pH VBG pCO2 VBG pO2 VBG HCO3 VBG O2 Saturation VBG Base Excess Sodium 141 Potassium 3.9 Chloride 101 Carbon Dioxide 23 Anion Gap 21 H BUN 103 H Creatinine 4.48 H* Estim Creat Clear Calc 17.5 Estimated GFR 11 POC Glucose 151 H 152 H Random Glucose 140 H Calcium 8.0 L Phosphorus Magnesium Total Bilirubin AST ALT Alkaline Phosphatase Total Protein Albumin Random Vancomycin 12.6 L Double Strand DNA Ab 02/15/25 02/15/25 05:32 05:41 WBC 27.2 H RBC 2.89 L Hgb 8.6 L Hct 24.6 L MCV 85.1 MCH 29.8 MCHC 35.0 RDW 18.5 H Plt Count 140 L MPV TNP Immature Gran % (Auto) Cancelled Neut % (Auto) Cancelled Lymph % (Auto) Cancelled [place] % (Auto) Cancelled Eos % (Auto) Cancelled Baso % (Auto) Cancelled Lymph # (Auto) Cancelled [place] # (Auto) Cancelled Eos # (Auto) Cancelled Baso # (Auto) Cancelled Abs Immat Gran (auto) Cancelled Absolute Neuts (auto) Cancelled Absolute Nucleated RBC 0.840 H Nucleated RBC % (auto) 3.1 H Neutrophils % (Manual) 79 H Band Neutrophils % 3 Lymphocytes % (Manual) 6 L Atypical Lymphs % (Man) 2 Monocytes % (Manual) 8 Metamyelocytes % 2 Abs Neuts (Manual) 22.3 H Lymphocytes # (Manual) 1.6 Atyp Lymphs # (Manual) 0.5 Monocytes # (Manual) 2.2 H Metamyelocytes # 0.5 Nucleated RBCs 4 H Smudge Cells PRESENT WBC Morphology Comment HYPOGRANULAR Platelet Estimate SLIGHTLY DECREASED Large Platelets PRESENT Plt Morphology Comment NOTED RBC Morphology NOTED Polychromasia 1+ (0-2) Microcytosis 1+ (5-14) Macrocytosis 1+ (5-14) Target Cells 1+ (5-14) Tear Drop Cells 2+ (3-5) [place] Cells 1+ (0-2) Smear Path Review VBG pH 7.67 H* VBG pCO2 17 VBG pO2 37 VBG HCO3 19 L VBG O2 Saturation 73.0 VBG Base Excess 1.2 Sodium 140 Potassium 4.3 Chloride 102 Carbon Dioxide 19 L Anion Gap 23 H BUN 125 H Creatinine 5.04 H* Estim Creat Clear Calc 14.7 Estimated GFR 10 POC Glucose Random Glucose 163 H Calcium 7.9 L Phosphorus 5.6 H Magnesium 2.8 H Total Bilirubin 0.8 AST 25 ALT 13 Alkaline Phosphatase 132 H Total Protein 7.0 Albumin 3.2 L Random Vancomycin Double Strand DNA Ab Microbiology Microbiology Results: Microbiology 02/12/25 09:59 Blood - Venous Blood Culture - Preliminary Staphylococcus aureus 02/12/25 09:48 Blood - Venous Blood Culture - Preliminary Staphylococcus aureus 02/11/25 17:44 Blood - Venous Blood Culture - Preliminary Gram negative [place]eters[place] 02/11/25 17:17 Blood - Venous Blood Culture - Preliminary Gram negative peters[place] Progress Note: A&P Assessment and plan (1) Lupus nephritis: Status: Acute (2) Acute renal failure (ARF): Status: Acute (3) Systemic lupus erythematosus: Status: Acute (4) Acute hypoxic respiratory failure: Status: Acute Plan Assessment: 29-year-old lady with underlying lupus and lupus nephritis on chronic prednisone admitted with right-sided pneumonia and polymicrobial bacteremia requiring intubation and ventilatory support, further complicated by acute renal failure requiring hemodialysis support Plan: Neuro: No acute issues. Cardiac: No acute issues. Pulmonary: Acute hypoxic respiratory failure secondary to right-sided pneumonia, initially required ventilatory support, extubated on 02/15/2025. Renal: Acute renal failure on the background of lupus nephritis requiring hemodialysis. Nephrology service care appreciated. Continue high-dose systemic glucocorticoids day 2/3. Continue to monitor renal indices and urine output. Endo: No acute issues. GI: No acute issues. ID: MRSA and Gram-negative bacteremia. Continue empiric antibiotics. Repeat cultures are pending. Heme/Onc: No acute issues. Psych: No acute issues. Miscellaneous: Underlying lupus with lupus nephritis on chronic systemic glucocorticoids. Prophylaxis: Heparin, ppi Diet: Regular Critical care time spent: 60 minute Quality Stroke Does the patient have a stroke diagnosis?: No VTE Prior VTE?: No VTE Risk Level:: Medical - moderate - high VTE Device Contraindication: N/A - Device Ordered VTE Drug Contraindication: Treatment Not Indicated
--- NOTE | 2025-02-15 09:59 | MHC.CLN ---
F/U PT EXTUBATED THIS AM DISCUSSED AT ROUNDS WITH MD PLAN TO ADVANCE DIET TO LOW K+ MONITOR PO INTAKE CLOSELY RD TO FOLLOW WEEKLY
[2025-02-15 10:59] LABS: Complement C3 91 mg/dL (83-193)
[2025-02-15 12:00] LABS: Glucose, Whole Blood 131 mg/dL (60-115)
[2025-02-15] MEDS: fentaNYL citrate/PF 100 MCG/2 ML VIAL IVPUSH ×2 (12:25→14:26)
--- NOTE | 2025-02-15 12:53 | P.CDIM_ITS ---
PROVIDER RESPONSE TEXT: To clarify, the appropriate diagnosis supported by the clinical indicators: Other (explain): Acute kidney injury QUERY TEXT: PHYSICIAN'S DOCUMENTATION REQUEST Date of Query: 02/15/2025 12:30 PM EDT Patient Name: Trey Maharaj Admit Date: 02/11/2025 Dear Chino Duong MD, A review of the medical record indicates additional documentation may be needed. Please review below and update the documentation accordingly. Clinical Indicators: creatinine on 02/15/25: 5.04 eGFR 10 dyspnea per Nephrology Acute kidney injury superimposed on CKD, [place] likely due to tubular injury from sepsis initiated on hemodialysis Please clarify which of the following accurately represents the stage of the patient's renal status: CKD, stage 1 CKD, stage 2 CKD, stage 3 CKD, stage 4 ESRD - CKD V now requiring permanent dialysis and/or transplant Other (explain) Clinically unable to determine (explain) Thank you, Neetu Ho RN Use of terms such as suspected, likely, concern for, or probable (associated with a specific diagnosi s that is being evaluated, monitored, or treated as if it exists) are acceptable and can be coded in the inpatient se tting, when documented at the time of discharge. Please use your independent medical judgment in providing your response. THIS QUERY IS PART OF THE PERMANENT MEDICAL RECORD
--- NOTE | 2025-02-15 13:25 | MHC.CM.PN ---
Pt remains intubated in ICU: HD scheduled for today: seen by nephrology: concern for possible lupus nephritis flare, started on high-dose systemic glucocorticoids. No plans for weaning/extubation at this time. Pt from home w/family. Will await clinical stability and reassess for changes in d/c needs.
[2025-02-15] MEDS: HYDROmorphone HCl 1 MG/ML SYRINGE IVPUSH ×3 (14:50→23:43)
[2025-02-15] MEDS: Midazolam HCl 2 MG/2 ML VIAL IVPUSH (15:35)
[2025-02-15 15:46] LABS: OBS Int Ctl Valid YES; OBS1 POSITIVE (NEGATIVE)
[2025-02-15 17:36] LABS: Glucose, Whole Blood 120 mg/dL (60-115)
--- NOTE | 2025-02-15 17:45 | PC.NURSE ---
Assumed care at 0700 - pt extubated without incident at 0840 to [facility]. Patient c/o 06/24 generalized pain, moaning with repositioning - MD notified - Fentanyl 100mcg administered without relief - MD notified - Dilaudid 1mg IVP administered without relief - MD aware. Increased restlessness/anxiety during dialysis - Versed 2mg IVP administered with minimal relief. Patient found multiple times sitting in dark liquid bowel movements - care provided, call hendricks within reach, educated patient on importance of calling for assistance. MD notified - OBS obtained and positive - Okay to give SQ heparin per MD - plan for CBC post dialysis.
--- NOTE | 2025-02-15 18:08 | PM.PNNEP ---
Subjective Subjective Date of Service: 02/15/25 Interval history: No events overnight. Extubated uneventfully this a.m. On high flow O2 ; Due HD this AM Physical Exam Vital Signs: Vital Signs: Last Vital Signs Temp 97.8 F 02/15/25 16:00 Pulse 92 02/15/25 17:00 Resp 24 H 02/15/25 17:00 BP 151/94 H 02/15/25 17:00 Pulse Ox 93 02/15/25 17:00 O2 Del Method High Flow Nasal C annula 02/15/25 17:00 O2 Flow Rate 40 02/15/25 17:00 FiO2 25 02/15/25 17:00 Oxygen Flow Rate 40 02/11/25 21:17 BMI result Body Mass Index 19.4 Const: General: no acute distress Eyes: EOM: EOMs intact bilaterally Resp: Auscultation: diminished lung sounds Cardio: Rate: regular rate GI: Palpation (GI): Soft to palpation Neuro: General: moves all extremities Objective Data Labs 02/15/25 05:32 02/15/25 05:32 Labs: Laboratory Results - last 24 hr 02/11/25 02/11/25 02/11/25 17:44 19:41 20:37 WBC RBC Hgb Hct MCV MCH MCHC RDW Plt Count MPV Immature Gran % (Auto) Neut % (Auto) Lymph % (Auto) [place] % (Auto) Eos % (Auto) Baso % (Auto) Lymph # (Auto) [place] # (Auto) Eos # (Auto) Baso # (Auto) Abs Immat Gran (auto) Absolute Neuts (auto) Absolute Nucleated RBC Nucleated RBC % (auto) Neutrophils % (Manual) Band Neutrophils % Lymphocytes % (Manual) Atypical Lymphs % (Man) Monocytes % (Manual) Metamyelocytes % Abs Neuts (Manual) Lymphocytes # (Manual) Atyp Lymphs # (Manual) Monocytes # (Manual) Metamyelocytes # Nucleated RBCs Smudge Cells WBC Morphology Comment Platelet Estimate Large Platelets Plt Morphology Comment RBC Morphology Polychromasia Microcytosis Macrocytosis Target Cells Tear Drop Cells [place] Cells Smear Path Review SEE NOTE VBG pH VBG pCO2 VBG pO2 VBG HCO3 VBG O2 Saturation VBG Base Excess Sodium Potassium Chloride Carbon Dioxide Anion Gap BUN Creatinine Estim Creat Clear Calc Estimated GFR POC Glucose Random Glucose Calcium Phosphorus Magnesium Total Bilirubin AST ALT Alkaline Phosphatase Total Protein Albumin Stool Occult Blood Random Vancomycin Double Strand DNA Ab 24 H Complement C3 91 Complement C4 7 L 02/14/25 02/14/25 02/15/25 18:14 20:02 00:37 WBC 26.6 H RBC 2.61 L Hgb 8.0 L Hct 21.5 L MCV 82.4 MCH 30.7 MCHC 37.2 H RDW 17.9 H Plt Count 152 L MPV TNP Immature Gran % (Auto) Neut % (Auto) Lymph % (Auto) [place] % (Auto) Eos % (Auto) Baso % (Auto) Lymph # (Auto) [place] # (Auto) Eos # (Auto) Baso # (Auto) Abs Immat Gran (auto) Absolute Neuts (auto) Absolute Nucleated RBC 0.740 H Nucleated RBC % (auto) 2.8 H Neutrophils % (Manual) Band Neutrophils % Lymphocytes % (Manual) Atypical Lymphs % (Man) Monocytes % (Manual) Metamyelocytes % Abs Neuts (Manual) Lymphocytes # (Manual) Atyp Lymphs # (Manual) Monocytes # (Manual) Metamyelocytes # Nucleated RBCs Smudge Cells WBC Morphology Comment Platelet Estimate Large Platelets Plt Morphology Comment RBC Morphology Polychromasia Microcytosis Macrocytosis Target Cells Tear Drop Cells [place] Cells Smear Path Review VBG pH VBG pCO2 VBG pO2 VBG HCO3 VBG O2 Saturation VBG Base Excess Sodium 141 Potassium 3.9 Chloride 101 Carbon Dioxide 23 Anion Gap 21 H BUN 103 H Creatinine 4.48 H* Estim Creat Clear Calc 17.5 Estimated GFR 11 POC Glucose 151 H 152 H Random Glucose 140 H Calcium 8.0 L Phosphorus Magnesium Total Bilirubin AST ALT Alkaline Phosphatase Total Protein Albumin Stool Occult Blood Random Vancomycin 12.6 L Double Strand DNA Ab Complement C3 Complement C4 02/15/25 02/15/25 02/15/25 05:32 05:41 11:55 WBC 27.2 H RBC 2.89 L Hgb 8.6 L Hct 24.6 L MCV 85.1 MCH 29.8 MCHC 35.0 RDW 18.5 H Plt Count 140 L MPV TNP Immature Gran % (Auto) Cancelled Neut % (Auto) Cancelled Lymph % (Auto) Cancelled [place] % (Auto) Cancelled Eos % (Auto) Cancelled Baso % (Auto) Cancelled Lymph # (Auto) Cancelled [place] # (Auto) Cancelled Eos # (Auto) Cancelled Baso # (Auto) Cancelled Abs Immat Gran (auto) Cancelled Absolute Neuts (auto) Cancelled Absolute Nucleated RBC 0.840 H Nucleated RBC % (auto) 3.1 H Neutrophils % (Manual) 79 H Band Neutrophils % 3 Lymphocytes % (Manual) 6 L Atypical Lymphs % (Man) 2 Monocytes % (Manual) 8 Metamyelocytes % 2 Abs Neuts (Manual) 22.3 H Lymphocytes # (Manual) 1.6 Atyp Lymphs # (Manual) 0.5 Monocytes # (Manual) 2.2 H Metamyelocytes # 0.5 Nucleated RBCs 4 H Smudge Cells PRESENT WBC Morphology Comment HYPOGRANULAR Platelet Estimate SLIGHTLY DECREASED Large Platelets PRESENT Plt Morphology Comment NOTED RBC Morphology NOTED Polychromasia 1+ (0-2) Microcytosis 1+ (5-14) Macrocytosis 1+ (5-14) Target Cells 1+ (5-14) Tear Drop Cells 2+ (3-5) [place] Cells 1+ (0-2) Smear Path Review VBG pH 7.67 H* VBG pCO2 17 VBG pO2 37 VBG HCO3 19 L VBG O2 Saturation 73.0 VBG Base Excess 1.2 Sodium 140 Potassium 4.3 Chloride 102 Carbon Dioxide 19 L Anion Gap 23 H BUN 125 H Creatinine 5.04 H* Estim Creat Clear Calc 14.7 Estimated GFR 10 POC Glucose 131 H Random Glucose 163 H Calcium 7.9 L Phosphorus 5.6 H Magnesium 2.8 H Total Bilirubin 0.8 AST 25 ALT 13 Alkaline Phosphatase 132 H Total Protein 7.0 Albumin 3.2 L Stool Occult Blood Random Vancomycin Double Strand DNA Ab Complement C3 Complement C4 02/15/25 02/15/25 15:30 17:27 WBC RBC Hgb Hct MCV MCH MCHC RDW Plt Count MPV Immature Gran % (Auto) Neut % (Auto) Lymph % (Auto) [place] % (Auto) Eos % (Auto) Baso % (Auto) Lymph # (Auto) [place] # (Auto) Eos # (Auto) Baso # (Auto) Abs Immat Gran (auto) Absolute Neuts (auto) Absolute Nucleated RBC Nucleated RBC % (auto) Neutrophils % (Manual) Band Neutrophils % Lymphocytes % (Manual) Atypical Lymphs % (Man) Monocytes % (Manual) Metamyelocytes % Abs Neuts (Manual) Lymphocytes # (Manual) Atyp Lymphs # (Manual) Monocytes # (Manual) Metamyelocytes # Nucleated RBCs Smudge Cells WBC Morphology Comment Platelet Estimate Large Platelets Plt Morphology Comment RBC Morphology Polychromasia Microcytosis Macrocytosis Target Cells Tear Drop Cells [place] Cells Smear Path Review VBG pH VBG pCO2 VBG pO2 VBG HCO3 VBG O2 Saturation VBG Base Excess Sodium Potassium Chloride Carbon Dioxide Anion Gap BUN Creatinine Estim Creat Clear Calc Estimated GFR POC Glucose 120 H Random Glucose Calcium Phosphorus Magnesium Total Bilirubin AST ALT Alkaline Phosphatase Total Protein Albumin Stool Occult Blood POSITIVE Random Vancomycin Double Strand DNA Ab Complement C3 Complement C4 Microbiology Microbiology Results: Microbiology 02/14/25 10:27 Blood - Venous Blood Culture - Preliminary Prelim: GPC Gram Stain only 02/14/25 10:51 Blood - Venous Blood Culture - Preliminary No growth after 24 hours. 02/12/25 09:59 Blood - Venous Blood Culture - Final Methicillin Res Staph Aureus 02/12/25 09:48 Blood - Venous Blood Culture - Final Methicillin Res Staph Aureus 02/11/25 17:44 Blood - Venous Blood Culture - Final Escherichia coli Klebsiella oxytoca 02/11/25 17:17 Blood - Venous Blood Culture - Final Escherichia coli Klebsiella oxytoca Procedures Date of Service Date of Service: 02/15/25 Assessment & Plan Assessment and plan (1) Acute renal failure (ARF): Status: Acute Plan [place] likely due to tubular injury from sepsis Likely has active lupus nephritis Complement level pending Has been initiated on HD Shall dialyze today , tomorrow & [place] On 500 mg of Methyl pred daily for 3 days 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
[2025-02-15 18:48] LABS: Hematocrit 27.1 % (37.0-47.0)
[2025-02-15 18:50] LABS: Hemoglobin 9.5 g/dl (12.0-16.0); Mean Corpuscular HGB Conc 35.1 g/dl (31.0-35.0); Mean Corpuscular Hemoglobin 28.9 pg (27.0-33.0); Mean Corpuscular Volume 82.4 fL (80.0-98.0); PLT CLUMP 1; Red Blood Count 3.29 X10*6/uL (4.20-5.50); Red Cell Distribution Width 17.8 % (11.0-16.0)
[2025-02-15 18:53] LABS: NRBC Pct Auto 2.4 /100WBC (0.0-0.2); PLT ABN DIST 1; WBC ABN SCTR FOR CBC 1
[2025-02-15 18:56] LABS: White Blood Count 35.6 X10*3/uL (4.8-10.8)
[2025-02-15 19:14] LABS: Atypical Lymph Absolute Manual 0.4 x10*3/uL; Atypical Lymphs Percent Manual 1 % (0-6); Band Neutrophils Percent 6 % (3-5); Lymphocytes Absolute Manual 2.1 X10*3/uL (1.2-4.9); Lymphocytes Percent Manual 6 % (20-40); Metamyelocytes Absolute 0.4 X10*3/uL; Metamyelocytes Percent 1 %; Monocytes Absolute Manual 0.7 X10*3/uL (0.1-1.2); Monocytes Percent Manual 2 % (2-11); Myelocytes Absolute 0.7 X10*/uL; Myelocytes Percent 2 %; Neutrophils Absolute Manual 30.6 X10*3/uL (2.0-8.3); Neutrophils Percent Manual 80 % (45-73); Nucleated Red Blood Cells 2 /100WBC (0-0); Promyelocytes Absolute 0.7 X10*3/uL; Promyelocytes Percent 2 %; RBC Morphology NOTED
[2025-02-15 19:15] LABS: Microcytosis 1+ (5-14) /OIF; Platelet Estimate DECREASED (NORMAL); Platelet Morphology Comment NORMAL; Target Cells 1+ (5-14) /OIF; Tear Drop Cells 1+ (0-2) /OIF
[2025-02-15 19:16] LABS: Polychromasia 1+ (0-2) /OIF
[2025-02-15 19:18] LABS: Toxic Vacuolation PRESENT
[2025-02-15 19:20] LABS: Platelet Count 71 X10*3/uL (160-400)
[2025-02-15 22:06] LABS: Vancomycin Random 13.8 mcg/mL (15-20)
[2025-02-15] MEDS: vancomycin HCL 500 MG in 0.9 % Sodium Chloride 100 ML 110 MG IV (23:42)
[2025-02-15 23:48] LABS: Anion Gap 20 (12-20); Blood Urea Nitrogen 84 mg/dL (9-16); Calcium 8.3 mg/dL (8.4-10.2); Carbon Dioxide 23 mmol/L (22-29); Chloride 102 mmol/L (96-108); Creatinine Clr Calc Pharmacy 19.9; Estimated Glomerular Filt Rate 14; Glucose Random 110 mg/dL (60-115); Potassium 3.4 mmol/L (3.3-5.1); Sodium 142 mmol/L (135-145)
[2025-02-16] VITALS (26 sets, daily range): BP systolic 123–168; BP diastolic 79–110; PULSE 55–118; RESP 17–30; TEMP 36.2–38.9; O2SAT 90–96; BMI 19.1
[2025-02-16 00:05] LABS: Glucose, Whole Blood 110 mg/dL (60-115)
[2025-02-16 00:07] LABS: CDiff Gene PCR NEGATIVE (Negative)
[2025-02-16] MEDS: Loperamide HCl 2 MG CAPSULE PO (00:44)
[2025-02-16] MEDS: HYDROmorphone HCl 1 MG/ML SYRINGE IVPUSH ×7 (03:18→21:10)
[2025-02-16] MEDS: Labetalol HCL 100 MG/20 ML VIAL 20 MG IVPUSH (03:19)
[2025-02-16] MEDS: Piperacillin Sodium/Tazobactam 2.25 GM in 0.9 % Sodium Chloride 50 ML IV (04:31)
[2025-02-16 05:18] LABS: VBG HCO3 23 mmol/L (22-26); VBG pCO2 30 mmHg; VBG pO2 74 mmHg
[2025-02-16 05:39] LABS: Red Cell Distribution Width 17.2 % (11.0-16.0)
[2025-02-16 05:41] LABS: Hematocrit 23.9 % (37.0-47.0); Mean Corpuscular HGB Conc 33.5 g/dl (31.0-35.0); Mean Corpuscular Hemoglobin 29.6 pg (27.0-33.0); Mean Corpuscular Volume 88.5 fL (80.0-98.0); PLT CLUMP 1
[2025-02-16 05:42] LABS: PLT ABN DIST 1
[2025-02-16 05:43] LABS: Platelet Count 68 X10*3/uL (160-400)
[2025-02-16 05:44] LABS: White Blood Count 30.7 X10*3/uL (4.8-10.8)
[2025-02-16 05:45] LABS: Venous Blood Gas Refer to POC result
[2025-02-16] MEDS: Pantoprazole Sodium 40 MG/10 ML VIAL IVPUSH (05:53)
[2025-02-16 06:05] LABS: Albumin Level 3.1 g/dL (3.5-5.0); Anion Gap 23 (12-20); Blood Urea Nitrogen 104 mg/dL (9-16); Calcium 8.2 mg/dL (8.4-10.2); Carbon Dioxide 22 mmol/L (22-29); Chloride 101 mmol/L (96-108); Creatinine Clr Calc Pharmacy 17.6; Estimated Glomerular Filt Rate 13; Glucose Random 145 mg/dL (60-115); Magnesium 2.4 mg/dL (1.6-2.6); Phosphorus 5.1 mg/dL (2.7-4.5); Potassium 3.7 mmol/L (3.3-5.1); Sodium 142 mmol/L (135-145)
[2025-02-16 06:08] LABS: Band Neutrophils Percent 6 % (3-5); Lymphocytes Absolute Manual 2.1 X10*3/uL (1.2-4.9); Lymphocytes Percent Manual 7 % (20-40); Metamyelocytes Absolute 0.9 X10*3/uL; Metamyelocytes Percent 3 %; Monocytes Absolute Manual 0.3 X10*3/uL (0.1-1.2); Monocytes Percent Manual 1 % (2-11); Neutrophils Absolute Manual 27.3 X10*3/uL (2.0-8.3); Neutrophils Percent Manual 83 % (45-73); Nucleated Red Blood Cells 2 /100WBC (0-0)
[2025-02-16 06:09] LABS: RBC Morphology NOTED
[2025-02-16 06:10] LABS: Basophilic Stippling 1+ (0-2) /OIF; Microcytosis 1+ (5-14) /OIF; Ovalocytes 1+ (5-14) /OIF; Polychromasia 1+ (0-2) /OIF; Spherocytes 1+ (0-2) /OIF; Target Cells 1+ (5-14) /OIF
--- NOTE | 2025-02-16 06:11 | PC.NURSE ---
Assumed care of patient at 1900. Patient is alert and oriented x 3, confused at times about situation. She is SR on the monitor 80-90?s. BP 150-160/90. Labetalol 20mg x 1 administered at 0315 with some effect. Systolic BP 140-150?s. Patient is maintaining O2 sat over 94% on highflow 40L 25%. Lungs are diminished throughout. Patient continues to have weak, persistent, nonproductive cough. Multiple episodes of watery loose stool throughout the night. Specimen sent to lab to check for CDIFF (negative). Imodium 2mg PO administered at 00:44 with effect. Patient did not experience any further bowel movements. Abdomen remains round and tender to touch. Indwelling catheter remains in place and patent, minimal dark yellow urine noted (see I+O). Patient consistently reporting 10/10 generalized pain, utilizing PRN dilaudid 1mg Q3 hours with little effect, provider notified. Patient will be receiving dialysis again today, educated on treatment plan, bed alarm on, call hendricks in place.?
[2025-02-16 06:14] LABS: Dohle Bodies PRESENT; Large Platelet PRESENT; Platelet Estimate DECREASED (NORMAL); Platelet Morphology Comment NOTED; Toxic Vacuolation PRESENT
[2025-02-16] MEDS: 0.9 % Sodium Chloride Flush 3 ML SYRINGE IVFLUSH ×2 (07:34→16:38)
--- NOTE | 2025-02-16 10:28 | PM.CCPN ---
Subjective Subjective Date of Service: 02/16/25 Interval History: 29-year-old lady with underlying lupus with lupus nephritis on 10 mg prednisone daily admitted on 02/11/2025 with dyspnea and hypoxia secondary to right-sided pneumonia with polymicrobial bacteremia requiring intubation and ventilatory support. Hospital course further complicated by acute renal failure requiring initiation hemodialysis. Elevated by nephrology service with concern for possible lupus nephritis flare, started on high-dose systemic glucocorticoids. Extubated on 02/15/2025. Overnight with watery diarrhea, C diff negative, started on Imodium. Blood cultures remain positive for MRSA, repeat blood cultures are pending. Critical Care Time (minutes): 0 Physical Exam Vital Signs: Vital Signs: Last Vital Signs Temp 97.5 F 02/16/25 08:00 Pulse 107 H 02/16/25 10:00 Resp 25 H 02/16/25 10:00 BP 123/79 02/16/25 10:00 Pulse Ox 95 02/16/25 10:00 O2 Del Method High Flow Nasal C annula 02/16/25 10:00 O2 Flow Rate 40 02/16/25 10:00 FiO2 25 02/16/25 10:00 Oxygen Flow Rate 40 02/11/25 21:17 BMI result Body Mass Index 19.1 Const: General: no acute distress, alert and awake Eyes: Sclerae: sclerae normal EOM: EOMs intact bilaterally Neck: Neck: Yes no lymphadenopathy, Yes trachea midline and Yes supple Resp: Effort & Inspection: normal respiratory effort and no respiratory distress Auscultation: clear to auscultation bilaterally Cardio: Rate: tachycardic Rhythm: regular rhythm Heart sounds: no gallops, no murmurs and no rubs GI: Palpation (GI): Soft to palpation and Other GI palpation findings present ( Nontender) Auscultation: normal bowel sounds Extrem: General: Yes no pedal edema, No clubbing and No cyanosis Objective Data Labs 02/16/25 05:02 02/16/25 05:02 Labs: Laboratory Results - last 24 hr 02/11/25 02/15/25 02/15/25 19:41 11:55 15:30 WBC RBC Hgb Hct MCV MCH MCHC RDW Plt Count MPV Immature Gran % (Auto) Neut % (Auto) Lymph % (Auto) [place] % (Auto) Eos % (Auto) Baso % (Auto) Lymph # (Auto) [place] # (Auto) Eos # (Auto) Baso # (Auto) Abs Immat Gran (auto) Absolute Neuts (auto) Absolute Nucleated RBC Nucleated RBC % (auto) Neutrophils % (Manual) Band Neutrophils % Lymphocytes % (Manual) Atypical Lymphs % (Man) Monocytes % (Manual) Metamyelocytes % Myelocytes % Promyelocytes % Abs Neuts (Manual) Lymphocytes # (Manual) Atyp Lymphs # (Manual) Monocytes # (Manual) Metamyelocytes # Myelocytes # Promyelocytes # Nucleated RBCs Toxic Vacuolation Dohle Bodies WBC Morphology Comment Platelet Estimate Large Platelets Plt Morphology Comment RBC Morphology Polychromasia Basophilic Stippling Microcytosis Spherocytes Target Cells Tear Drop Cells Ovalocytes Smear Path Review VBG pH VBG pCO2 VBG pO2 VBG HCO3 VBG O2 Saturation VBG Base Excess Sodium Potassium Chloride Carbon Dioxide Anion Gap BUN Creatinine Estim Creat Clear Calc Estimated GFR POC Glucose 131 H Random Glucose Calcium Phosphorus Magnesium Albumin Stool Occult Blood POSITIVE Random Vancomycin Complement C3 91 Complement C4 7 L C. difficile Tox B Gene 02/15/25 02/15/25 02/15/25 17:27 18:30 21:35 WBC 35.6 H* RBC 3.29 L Hgb 9.5 L Hct 27.1 L MCV 82.4 MCH 28.9 MCHC 35.1 H RDW 17.8 H Plt Count 71 L D MPV Not Reportable Immature Gran % (Auto) Cancelled Neut % (Auto) Cancelled Lymph % (Auto) Cancelled [place] % (Auto) Cancelled Eos % (Auto) Cancelled Baso % (Auto) Cancelled Lymph # (Auto) Cancelled [place] # (Auto) Cancelled Eos # (Auto) Cancelled Baso # (Auto) Cancelled Abs Immat Gran (auto) Cancelled Absolute Neuts (auto) Cancelled Absolute Nucleated RBC 0.840 H Nucleated RBC % (auto) 2.4 H Neutrophils % (Manual) 80 H Band Neutrophils % 6 H Lymphocytes % (Manual) 6 L Atypical Lymphs % (Man) 1 Monocytes % (Manual) 2 Metamyelocytes % 1 Myelocytes % 2 Promyelocytes % 2 Abs Neuts (Manual) 30.6 H Lymphocytes # (Manual) 2.1 Atyp Lymphs # (Manual) 0.4 Monocytes # (Manual) 0.7 Metamyelocytes # 0.4 Myelocytes # 0.7 Promyelocytes # 0.7 Nucleated RBCs 2 H Toxic Vacuolation PRESENT Dohle Bodies WBC Morphology Comment SEE NOTE Platelet Estimate DECREASED Large Platelets Plt Morphology Comment NORMAL RBC Morphology NOTED Polychromasia 1+ (0-2) Basophilic Stippling Microcytosis 1+ (5-14) Spherocytes Target Cells 1+ (5-14) Tear Drop Cells 1+ (0-2) Ovalocytes Smear Path Review SEE NOTE VBG pH VBG pCO2 VBG pO2 VBG HCO3 VBG O2 Saturation VBG Base Excess Sodium Potassium Chloride Carbon Dioxide Anion Gap BUN Creatinine Estim Creat Clear Calc Estimated GFR POC Glucose 120 H Random Glucose Calcium Phosphorus Magnesium Albumin Stool Occult Blood Random Vancomycin 13.8 L Complement C3 Complement C4 C. difficile Tox B Gene 02/15/25 02/15/25 02/15/25 23:14 23:20 23:52 WBC RBC Hgb Hct MCV MCH MCHC RDW Plt Count MPV Immature Gran % (Auto) Neut % (Auto) Lymph % (Auto) [place] % (Auto) Eos % (Auto) Baso % (Auto) Lymph # (Auto) [place] # (Auto) Eos # (Auto) Baso # (Auto) Abs Immat Gran (auto) Absolute Neuts (auto) Absolute Nucleated RBC Nucleated RBC % (auto) Neutrophils % (Manual) Band Neutrophils % Lymphocytes % (Manual) Atypical Lymphs % (Man) Monocytes % (Manual) Metamyelocytes % Myelocytes % Promyelocytes % Abs Neuts (Manual) Lymphocytes # (Manual) Atyp Lymphs # (Manual) Monocytes # (Manual) Metamyelocytes # Myelocytes # Promyelocytes # Nucleated RBCs Toxic Vacuolation Dohle Bodies WBC Morphology Comment Platelet Estimate Large Platelets Plt Morphology Comment RBC Morphology Polychromasia Basophilic Stippling Microcytosis Spherocytes Target Cells Tear Drop Cells Ovalocytes Smear Path Review VBG pH VBG pCO2 VBG pO2 VBG HCO3 VBG O2 Saturation VBG Base Excess Sodium 142 Potassium 3.4 D Chloride 102 Carbon Dioxide 23 Anion Gap 20 BUN 84 H Creatinine 3.73 H Estim Creat Clear Calc 19.9 Estimated GFR 14 POC Glucose 110 Random Glucose 110 Calcium 8.3 L Phosphorus Magnesium Albumin Stool Occult Blood Random Vancomycin Complement C3 Complement C4 C. difficile Tox B Gene NEGATIVE 02/16/25 02/16/25 05:02 05:14 WBC 30.7 H* RBC 2.70 L Hgb 8.0 L Hct 23.9 L MCV 88.5 D MCH 29.6 MCHC 33.5 RDW 17.2 H Plt Count 68 L MPV TNP Immature Gran % (Auto) Cancelled Neut % (Auto) Cancelled Lymph % (Auto) Cancelled [place] % (Auto) Cancelled Eos % (Auto) Cancelled Baso % (Auto) Cancelled Lymph # (Auto) Cancelled [place] # (Auto) Cancelled Eos # (Auto) Cancelled Baso # (Auto) Cancelled Abs Immat Gran (auto) Cancelled Absolute Neuts (auto) Cancelled Absolute Nucleated RBC 0.600 H Nucleated RBC % (auto) 2.0 H Neutrophils % (Manual) 83 H Band Neutrophils % 6 H Lymphocytes % (Manual) 7 L Atypical Lymphs % (Man) Monocytes % (Manual) 1 L Metamyelocytes % 3 Myelocytes % Promyelocytes % Abs Neuts (Manual) 27.3 H Lymphocytes # (Manual) 2.1 Atyp Lymphs # (Manual) Monocytes # (Manual) 0.3 Metamyelocytes # 0.9 Myelocytes # Promyelocytes # Nucleated RBCs 2 H Toxic Vacuolation PRESENT Dohle Bodies PRESENT WBC Morphology Comment Platelet Estimate DECREASED Large Platelets PRESENT Plt Morphology Comment NOTED RBC Morphology NOTED Polychromasia 1+ (0-2) Basophilic Stippling 1+ (0-2) Microcytosis 1+ (5-14) Spherocytes 1+ (0-2) Target Cells 1+ (5-14) Tear Drop Cells Ovalocytes 1+ (5-14) Smear Path Review VBG pH 7.50 H VBG pCO2 30 VBG pO2 74 VBG HCO3 23 VBG O2 Saturation TNP VBG Base Excess 1.0 Sodium 142 Potassium 3.7 Chloride 101 Carbon Dioxide 22 Anion Gap 23 H BUN 104 H Creatinine 4.15 H* Estim Creat Clear Calc 17.6 Estimated GFR 13 POC Glucose Random Glucose 145 H Calcium 8.2 L Phosphorus 5.1 H Magnesium 2.4 Albumin 3.1 L Stool Occult Blood Random Vancomycin Complement C3 Complement C4 C. difficile Tox B Gene Microbiology Microbiology Results: Microbiology 02/14/25 10:51 Blood - Venous Blood Culture - Final Methicillin Res Staph Aureus 02/14/25 10:27 Blood - Venous Blood Culture - Final Methicillin Res Staph Aureus 02/12/25 09:59 Blood - Venous Blood Culture - Final Methicillin Res Staph Aureus 02/12/25 09:48 Blood - Venous Blood Culture - Final Methicillin Res Staph Aureus 02/11/25 17:44 Blood - Venous Blood Culture - Final Escherichia coli Klebsiella oxytoca 02/11/25 17:17 Blood - Venous Blood Culture - Final Escherichia coli Klebsiella oxytoca Progress Note: A&P Assessment and plan (1) 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 Cardiac: No acute issues. Pulmonary: Acute hypoxic respiratory failure secondary to right-sided pneumonia, initially required ventilatory support, extubated on 02/15/2025. Renal: Acute renal failure on the background of lupus nephritis requiring hemodialysis. Nephrology service care appreciated. Continue high-dose systemic glucocorticoids day 2/3. Continue to monitor renal indices and urine output. Endo: No acute issues. GI: No acute issues. ID: MRSA bacteremia. Continue empiric antibiotics. Repeat cultures are pending, if remain positive, will require 2D echo. Heme/Onc: No acute issues. Psych: No acute issues. Miscellaneous: Underlying lupus with lupus nephritis on chronic systemic glucocorticoids. Prophylaxis: Heparin, ppi Diet: Regular Quality Stroke Does the patient have a stroke diagnosis?: No VTE Prior VTE?: No VTE Risk Level:: Medical - moderate - high VTE Device Contraindication: N/A - Device Ordered VTE Drug Contraindication: Treatment Not Indicated
[2025-02-16] MEDS: cefTRIAXone sodium 2 GM VIAL IVPUSH (11:45)
[2025-02-16 11:55] LABS: Glucose, Whole Blood 147 mg/dL (60-115)
[2025-02-16] MEDS: Omeprazole 40 MG CAPSULE.DR PO ×2 (12:03→16:44)
--- NOTE | 2025-02-16 14:17 | P.PNNP_ITS ---
Subjective Subjective Date of Service: 02/16/25 Interval history: Seen on HD this AM. D/W HD RN and ICU Attending and PASTE UP ARTIST; All recent data reviewed Physical Exam 2 Vital Signs: Vital Signs: Last Vital Signs Temp 101.3 F H 02/16/25 14:00 Pulse 116 H 02/16/25 14:00 Resp 25 H 02/16/25 14:00 BP 147/89 H 02/16/25 14:00 Pulse Ox 91 L 02/16/25 14:00 O2 Del Method High Flow Nasal C annula 02/16/25 14:00 O2 Flow Rate 40 02/16/25 14:00 FiO2 25 02/16/25 14:00 Oxygen Flow Rate 40 02/11/25 21:17 BMI result Body Mass Index 19.1 Const: General: no acute distress Eyes: EOM: EOMs intact bilaterally Neck: Neck: Yes supple Resp: Auscultation: diminished lung sounds Cardio: Rate: regular rate GI: Palpation (GI): Soft to palpation Skin: General skin exam: no rashes or lesions noted Neuro: General: moves all extremities Objective Data Labs 02/16/25 05:02 02/16/25 05:02 Labs: Laboratory Results - last 24 hr 02/15/25 02/15/25 02/15/25 15:30 17:27 18:30 WBC 35.6 H* RBC 3.29 L Hgb 9.5 L Hct 27.1 L MCV 82.4 MCH 28.9 MCHC 35.1 H RDW 17.8 H Plt Count 71 L D MPV Not Reportable Immature Gran % (Auto) Cancelled Neut % (Auto) Cancelled Lymph % (Auto) Cancelled [place] % (Auto) Cancelled Eos % (Auto) Cancelled Baso % (Auto) Cancelled Lymph # (Auto) Cancelled [place] # (Auto) Cancelled Eos # (Auto) Cancelled Baso # (Auto) Cancelled Abs Immat Gran (auto) Cancelled Absolute Neuts (auto) Cancelled Absolute Nucleated RBC 0.840 H Nucleated RBC % (auto) 2.4 H Neutrophils % (Manual) 80 H Band Neutrophils % 6 H Lymphocytes % (Manual) 6 L Atypical Lymphs % (Man) 1 Monocytes % (Manual) 2 Metamyelocytes % 1 Myelocytes % 2 Promyelocytes % 2 Abs Neuts (Manual) 30.6 H Lymphocytes # (Manual) 2.1 Atyp Lymphs # (Manual) 0.4 Monocytes # (Manual) 0.7 Metamyelocytes # 0.4 Myelocytes # 0.7 Promyelocytes # 0.7 Nucleated RBCs 2 H Toxic Vacuolation PRESENT Dohle Bodies WBC Morphology Comment SEE NOTE Platelet Estimate DECREASED Large Platelets Plt Morphology Comment NORMAL RBC Morphology NOTED Polychromasia 1+ (0-2) Basophilic Stippling Microcytosis 1+ (5-14) Spherocytes Target Cells 1+ (5-14) Tear Drop Cells 1+ (0-2) Ovalocytes Smear Path Review SEE NOTE VBG pH VBG pCO2 VBG pO2 VBG HCO3 VBG O2 Saturation VBG Base Excess Sodium Potassium Chloride Carbon Dioxide Anion Gap BUN Creatinine Estim Creat Clear Calc Estimated GFR POC Glucose 120 H Random Glucose Calcium Phosphorus Magnesium Albumin Stool Occult Blood POSITIVE Random Vancomycin C. difficile Tox B Gene 02/15/25 02/15/25 02/15/25 21:35 23:14 23:20 WBC RBC Hgb Hct MCV MCH MCHC RDW Plt Count MPV Immature Gran % (Auto) Neut % (Auto) Lymph % (Auto) [place] % (Auto) Eos % (Auto) Baso % (Auto) Lymph # (Auto) [place] # (Auto) Eos # (Auto) Baso # (Auto) Abs Immat Gran (auto) Absolute Neuts (auto) Absolute Nucleated RBC Nucleated RBC % (auto) Neutrophils % (Manual) Band Neutrophils % Lymphocytes % (Manual) Atypical Lymphs % (Man) Monocytes % (Manual) Metamyelocytes % Myelocytes % Promyelocytes % Abs Neuts (Manual) Lymphocytes # (Manual) Atyp Lymphs # (Manual) Monocytes # (Manual) Metamyelocytes # Myelocytes # Promyelocytes # Nucleated RBCs Toxic Vacuolation Dohle Bodies WBC Morphology Comment Platelet Estimate Large Platelets Plt Morphology Comment RBC Morphology Polychromasia Basophilic Stippling Microcytosis Spherocytes Target Cells Tear Drop Cells Ovalocytes Smear Path Review VBG pH VBG pCO2 VBG pO2 VBG HCO3 VBG O2 Saturation VBG Base Excess Sodium 142 Potassium 3.4 D Chloride 102 Carbon Dioxide 23 Anion Gap 20 BUN 84 H Creatinine 3.73 H Estim Creat Clear Calc 19.9 Estimated GFR 14 POC Glucose Random Glucose 110 Calcium 8.3 L Phosphorus Magnesium Albumin Stool Occult Blood Random Vancomycin 13.8 L C. difficile Tox B Gene NEGATIVE 0602/16/25 02/16/25 23:52 05:02 05:14 WBC 30.7 H* RBC 2.70 L Hgb 8.0 L Hct 23.9 L MCV 88.5 D MCH 29.6 MCHC 33.5 RDW 17.2 H Plt Count 68 L MPV TNP Immature Gran % (Auto) Cancelled Neut % (Auto) Cancelled Lymph % (Auto) Cancelled [place] % (Auto) Cancelled Eos % (Auto) Cancelled Baso % (Auto) Cancelled Lymph # (Auto) Cancelled [place] # (Auto) Cancelled Eos # (Auto) Cancelled Baso # (Auto) Cancelled Abs Immat Gran (auto) Cancelled Absolute Neuts (auto) Cancelled Absolute Nucleated RBC 0.600 H Nucleated RBC % (auto) 2.0 H Neutrophils % (Manual) 83 H Band Neutrophils % 6 H Lymphocytes % (Manual) 7 L Atypical Lymphs % (Man) Monocytes % (Manual) 1 L Metamyelocytes % 3 Myelocytes % Promyelocytes % Abs Neuts (Manual) 27.3 H Lymphocytes # (Manual) 2.1 Atyp Lymphs # (Manual) Monocytes # (Manual) 0.3 Metamyelocytes # 0.9 Myelocytes # Promyelocytes # Nucleated RBCs 2 H Toxic Vacuolation PRESENT Dohle Bodies PRESENT WBC Morphology Comment Platelet Estimate DECREASED Large Platelets PRESENT Plt Morphology Comment NOTED RBC Morphology NOTED Polychromasia 1+ (0-2) Basophilic Stippling 1+ (0-2) Microcytosis 1+ (5-14) Spherocytes 1+ (0-2) Target Cells 1+ (5-14) Tear Drop Cells Ovalocytes 1+ (5-14) Smear Path Review VBG pH 7.50 H VBG pCO2 30 VBG pO2 74 VBG HCO3 23 VBG O2 Saturation TNP VBG Base Excess 1.0 Sodium 142 Potassium 3.7 Chloride 101 Carbon Dioxide 22 Anion Gap 23 H BUN 104 H Creatinine 4.15 H* Estim Creat Clear Calc 17.6 Estimated GFR 13 POC Glucose 110 Random Glucose 145 H Calcium 8.2 L Phosphorus 5.1 H Magnesium 2.4 Albumin 3.1 L Stool Occult Blood Random Vancomycin C. difficile Tox B Gene 02/16/25 11:52 WBC RBC Hgb Hct MCV MCH MCHC RDW Plt Count MPV Immature Gran % (Auto) Neut % (Auto) Lymph % (Auto) [place] % (Auto) Eos % (Auto) Baso % (Auto) Lymph # (Auto) [place] # (Auto) Eos # (Auto) Baso # (Auto) Abs Immat Gran (auto) Absolute Neuts (auto) Absolute Nucleated RBC Nucleated RBC % (auto) Neutrophils % (Manual) Band Neutrophils % Lymphocytes % (Manual) Atypical Lymphs % (Man) Monocytes % (Manual) Metamyelocytes % Myelocytes % Promyelocytes % Abs Neuts (Manual) Lymphocytes # (Manual) Atyp Lymphs # (Manual) Monocytes # (Manual) Metamyelocytes # Myelocytes # Promyelocytes # Nucleated RBCs Toxic Vacuolation Dohle Bodies WBC Morphology Comment Platelet Estimate Large Platelets Plt Morphology Comment RBC Morphology Polychromasia Basophilic Stippling Microcytosis Spherocytes Target Cells Tear Drop Cells Ovalocytes Smear Path Review VBG pH VBG pCO2 VBG pO2 VBG HCO3 VBG O2 Saturation VBG Base Excess Sodium Potassium Chloride Carbon Dioxide Anion Gap BUN Creatinine Estim Creat Clear Calc Estimated GFR POC Glucose 147 H Random Glucose Calcium Phosphorus Magnesium Albumin Stool Occult Blood Random Vancomycin C. difficile Tox B Gene Microbiology Microbiology Results: Microbiology 02/14/25 10:51 Blood - Venous Blood Culture - Final Methicillin Res Staph Aureus 02/14/25 10:27 Blood - Venous Blood Culture - Final Methicillin Res Staph Aureus 02/12/25 09:59 Blood - Venous Blood Culture - Final Methicillin Res Staph Aureus 02/12/25 09:48 Blood - Venous Blood Culture - Final Methicillin Res Staph Aureus 02/11/25 17:44 Blood - Venous Blood Culture - Final Escherichia coli Klebsiella oxytoca 02/11/25 17:17 Blood - Venous Blood Culture - Final Escherichia coli Klebsiella oxytoca Procedures Date of Service Date of Service: 02/16/25 Assessment & Plan Assessment and plan (1) Acute renal failure (ARF): Status: Acute Plan [place] likely due to tubular injury from sepsis Likely has active lupus nephritis Complement level pending Has been initiated on HD Shall dialyze again tomorrow Finishing 500 mg of Methyl pred daily for 3 days Shall switch to PO Prednisone 60 mg from tomorrow Will need PCP prophylaxis 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
--- NOTE | 2025-02-16 14:52 | MHC.CM.PN ---
Pt extubated on 02/15. Continues to receive daily HD (lupus nephrotic syndrome) Pt will need a permacath for continued sessions. Pt may be able to transfer to the medical floor later today. Original d/c plan for a return to home w/family: unknown if pt will need STR for physical deconditioning. PT eval would be helpful when medically stable. CM to follow.
--- NOTE | 2025-02-16 16:13 | PM.EVENT ---
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 initially required ventilatory support, extubated on 02/15/2025 and on high flow now CT negative for stones\obstruction in abdomen Echo suspected vegetations Febrile to 102-103 Check Lactic acid and blood cultures Can give fluid boluses as needed IV Tylenol and cold compressors Still on High flow , to wean down as tolerated Continue high-dose systemic glucocorticoids day 2 ID Consult repeat Echo Time Spent With Patient Time: Total time managing care of this patient today ____ minutes.
[2025-02-16] MEDS: Acetaminophen 1,000 MG/100 ML PIGGYBACK 400 MG IV (16:41)
[2025-02-16 17:02] LABS: Lactic Acid 1.6 mmol/L (0.5-2.0)
[2025-02-16 18:25] LABS: Glucose, Whole Blood 108 mg/dL (60-115)
--- NOTE | 2025-02-16 19:05 | PC.NURSE ---
patient alert and orientedx3, off to situation and vague, soft spoken. patient received HD this morning, 2.5 L removed as per Dialysis nurse. patient drinking fluids independently, able to take PO meds, small bite of meals. transfered to [facility] tele this afternoon, bonilla removed prior to transfer DTV [id number], patient oliguric, report given.
--- NOTE | 2025-02-16 19:08 | HE.PHANOTE ---
Vancomycin Dosing Vancomycin random level 16 today. Since CrCl is 17.6 and random level is > 14, will hold tonight's dose of vancomycin. Will get repeat level s/p dialysis tomorrow 02/17 @ 1800. Aida PelayoD
[2025-02-17] VITALS (12 sets, daily range): BP systolic 120–167; BP diastolic 68–90; PULSE 92–131; RESP 17–22; TEMP 36.3–37.1; O2SAT 94–99; BMI 19.8
--- NOTE | 2025-02-17 | ECG_ITS ---
Test Reason : tachycardia Blood Pressure : */* mmHG Vent. Rate : 127 BPM Atrial Rate : 127 BPM P-R Int : 122 ms QRS Dur : 94 ms QT Int : 338 ms P-R-T Axes : 41 64 38 degrees QTcB Int : 491 ms Sinus tachycardia Nonspecific ST abnormality Abnormal ECG When compared with ECG of 11-Feb-2025 17:06, ST now depressed in Inferior leads Nonspecific T wave abnormality now evident in Lateral leads Referred By: Yumiko Alcaraz Electronically Signed By: ARRON SUAREZ
[2025-02-17] MEDS: HYDROmorphone HCl 1 MG/ML SYRINGE IVPUSH ×7 (00:27→21:58)
[2025-02-17] MEDS: Acetaminophen 1,000 MG/100 ML PIGGYBACK 400 MG IV ×3 (00:27→12:14)
[2025-02-17 00:59] LABS: Glucose, Whole Blood 112 mg/dL (60-115)
[2025-02-17] MEDS: Omeprazole 40 MG CAPSULE.DR PO ×2 (06:33→16:46)
[2025-02-17 07:17] LABS: Hematocrit 24.1 % (37.0-47.0); Hemoglobin 7.8 g/dl (12.0-16.0); Mean Corpuscular HGB Conc 32.4 g/dl (31.0-35.0); Mean Corpuscular Hemoglobin 29.2 pg (27.0-33.0); Mean Corpuscular Volume 90.3 fL (80.0-98.0); PLT CLUMP 1; Red Blood Count 2.67 X10*6/uL (4.20-5.50); Red Cell Distribution Width 16.7 % (11.0-16.0)
[2025-02-17 07:18] LABS: NRBC Pct Auto 1.5 /100WBC (0.0-0.2)
[2025-02-17 07:19] LABS: Albumin Level 3.1 g/dL (3.5-5.0); Anion Gap 20 (12-20); Blood Urea Nitrogen 83 mg/dL (9-16); Calcium 8.5 mg/dL (8.4-10.2); Carbon Dioxide 22 mmol/L (22-29); Chloride 96 mmol/L (96-108); Creatinine Clr Calc Pharmacy 17.6; Estimated Glomerular Filt Rate 12; Glucose Random 112 mg/dL (60-115); Magnesium 2.2 mg/dL (1.6-2.6); Phosphorus 8.5 mg/dL (2.7-4.5); Potassium 4.2 mmol/L (3.3-5.1); Sodium 134 mmol/L (135-145)
[2025-02-17 07:24] LABS: Parathyroid Hormone Intact 439.5 pg/mL (8.7-77.1)
[2025-02-17 08:27] LABS: Band Neutrophils Percent 6 % (3-5); Lymphocytes Percent Manual 9 % (20-40); Metamyelocytes Percent 3 %; Monocytes Percent Manual 7 % (2-11); Neutrophils Percent Manual 75 % (45-73)
[2025-02-17 08:40] LABS: Large Platelet PRESENT; Macrocytosis 1+ (5-14) /OIF; Microcytosis 1+ (5-14) /OIF; Platelet Estimate DECREASED (NORMAL); Platelet Morphology Comment NOTED; RBC Morphology NOTED; Stomatocytes 1+ (5-14) /OIF
[2025-02-17 08:41] LABS: Basophilic Stippling 2+ (3-5) /OIF; Howell Jolly Bodies PRESENT; Hypochromasia 1+ (5-14) /OIF; Polychromasia 1+ (0-2) /OIF; Toxic Granulation PRESENT; Toxic Vacuolation PRESENT
[2025-02-17 08:44] LABS: Lymphocytes Absolute Manual 2.3 X10*3/uL (1.2-4.9); Metamyelocytes Absolute 0.8 X10*3/uL; Monocytes Absolute Manual 1.8 X10*3/uL (0.1-1.2); Neutrophils Absolute Manual 20.3 X10*3/uL (2.0-8.3); Platelet Count 80 X10*3/uL (160-400); White Blood Count 25.1 X10*3/uL (4.8-10.8)
[2025-02-17] MEDS: 0.9 % Sodium Chloride Flush 3 ML SYRINGE IVFLUSH ×3 (09:45→19:40)
--- NOTE | 2025-02-17 11:04 | P.CONCA_ITS ---
History of Present Illness History of Present Illness Date of Service: 02/17/25 Chief complaint: Shock/renal failure Narrative: This is a cardiology consultation regarding bacteremia/question of endocarditis. Blood cultures from few days back had shown MRSA as well as E coli, Klebsiella. Most recent blood culture from yesterday is still pending. In the echocardiogram, there was question of tricuspid valve endocarditis but not well visualized. It seems patient was indeed quite ill in the ICU with respiratory failure, pneumonia, bacteremia, renal failure, dialysis. Currently, she is actually in dialysis. When I questioned her, she denies any previous cardiac history. Also denying any acute complaints from the cardiac standpoint. Review of Systems 2 Review of Systems: Yes all other systems are reviewed and are negative Constitutional: Constitutional: Reports as per HPI and Reports no additional constitutional complaints Eyes: Eyes: Reports as per HPI and Denies no additional eye complaints ENT: Denies system reviewed and no additional complaints, except as documented and Reports as per HPI Cardiovascular: Cardiovascular: Reports as per HPI, Reports no additional cardiovascular complaints, Denies acrocyanosis, Denies cool extremities, Denies chest pain, Denies leg edema, Denies lightheadedness, Denies palpitations and Denies dyspnea Respiratory: Respiratory: Reports as per HPI, Denies no additional respiratory complaints and Denies dyspnea Gastrointestinal: Gastrointestinal: Reports as per HPI and Denies no additional gastrointestinal complaints Genitourinary: Genitourinary: Reports as per HPI Musculoskeletal: Musculoskeletal: Reports no additional musculoskeletal complaints and Reports as per HPI Integumentary/Breasts: Skin/Breast: Reports system reviewed and no additional complaints, except as docu Neurologic: Reports system reviewed and no additional complaints, except as documented and Reports as per HPI Psychiatric: Psychiatric: Reports no additional psychiatric complaints and Reports as per HPI Endocrine: Endocrine: Reports no additional endocrine complaints, Reports as per HPI and Denies palpitations Hematologic/Lymphatic: Hematologic/Lymphatic: Reports no additional hematologic/lymphatic complaints and Reports as per HPI Allergic/Immunologic: Allergic/Immunologic: Reports no additional allergic/immunologic complaints and Reports as per HPI [facility] Past Medical History Medical History (Updated 02/17/25 @ 11:08 by Chaz Cole MD) Lupus nephritis Pericardial effusion Essential hypertension Rash Acute on chronic anemia Abnormal uterine bleeding Hypertensive urgency Anemia Depression Anxiety Fibromyalgia Lupus Family History Family History Mother Hypertension Type 2 diabetes mellitus Lupus Arthritis Maternal Grandmother Hypertension Type 2 diabetes mellitus Arthritis Surgical History Surgical History Hx of hernia repair Social History Social History Household Members: Spouse and Children Housing: Apartment Do you presently have visiting nurse or other home services: No Alcohol intake: former Comment: achy-lupus exacerbation Patient Tobacco Use Status: Current everyday Tobacco user Tobacco use type: Cigarette Cigarette Packs Per Day: 0.5 Cigarettes Per Day: 10.0 Years Smoked: 7 Smoked in Last 30 Days: Yes Use of substances other than those prescribed or required for medical reasons: Yes Substance Use Type: Marijuana Currently Displaying Signs/Symptoms of Drug Intoxication Withdrawal: No Have you been hit, kicked, punched, or otherwise hurt by someone within the past year? If so, by whom?: No Do you feel safe in your current relationship?: Yes Is there a partner from a previous relationship who is making you feel unsafe now?: No Are you made to feel afraid or neglected: No Advance Directives: Yes Advance Directives on File: Yes Advance Directives Date on File: 04/03/22 Do you have a plan to hurt others: No Plan Recently lost weight without trying: No Patient : No : No Poor oral hygiene: No service: No Current occupational status: disabled Meds Allergies Allergy/AdvReac Type Severity Reaction Status Date / Time mycophenolate mofetil AdvReac Intermediate GI upset Verified 02/11/25 16:49 gabapentin AdvReac Unknown Hives Verified 02/11/25 16:49 Active Medications: Current Medications Ceftriaxone Sodium (Ceftriaxone Sodium 2 Gm Vial) 2 gm IVPUSH Q24H GERARDO Last Admin: 02/16/25 11:45 Dose: 2 gm Hydromorphone HCl (Hydromorphone Hcl 1 Mg/Ml Syringe) 1 mg IVPUSH Q3H PRN; Protocol PRN Reason: Pain, Severe (Pain Scale 7-10) Last Admin: 02/17/25 09:43 Dose: 1 mg Vancomycin HCl 500 mg/ Sodium (Chloride) 110 mls @ 110 mls/hr IV ONCE ONE Stop: 02/12/25 22:59 Acetaminophen (Ofirmev) 1,000 mg in 100 mls @ 400 mls/hr IV Q6H COUNTS INCLUDE 234 BEDS AT THE [facility] Stop: 02/17/25 11:14 Last Infusion: 02/17/25 07:16 Dose: Infused Loperamide HCl (Loperamide Hcl 2 Mg Capsule) 4 mg PO Q6H PRN PRN Reason: Diarrhea Naloxone HCl (Naloxone Hcl 0.4 Mg/Ml Vial) 0.2 mg IVPUSH Q2M PRN PRN Reason: Excessive sedation or RR < 8 Omeprazole (Omeprazole 40 Mg Capsule.) 40 mg PO BID@0630,1630 COUNTS INCLUDE 234 BEDS AT THE [facility] Last Admin: 02/17/25 06:33 Dose: 40 mg Pharmacy Consult (Consult Rx Vancomycin Dosing) 1 each MISCELLANE DAILY PRN PRN Reason: Consult order Prednisone (Prednisone 20 Mg Tablet) 60 mg PO DAILY COUNTS INCLUDE 234 BEDS AT THE [facility] Sodium Chloride (0.9 % Sodium Chloride Flush 3 Ml Syringe) 3 ml IVFLUSH QSHIFT COUNTS INCLUDE 234 BEDS AT THE [facility] Last Admin: 02/17/25 09:45 Dose: 3 ml Physical Exam 2 Vital Signs: Vital Signs: Last Vital Signs Temp 98.2 F 02/17/25 07:56 Pulse 95 02/17/25 07:56 Resp 18 02/17/25 07:56 BP 161/90 H 02/17/25 07:56 Pulse Ox 99 02/17/25 07:56 O2 Del Method High Flow Nasal C annula 02/17/25 07:56 O2 Flow Rate 40 02/17/25 07:56 FiO2 35 02/17/25 07:56 Oxygen Flow Rate 40 02/11/25 21:17 BMI result Body Mass Index 19.8 Const: General: comfortable and no acute distress O rientation/consciousness: patient oriented x3 HEENT: Other: Unremarkable Head: Yes normal to inspection Neck: Neck: Yes normal visual inspection Chest: Chest palpation & inspection: normal inspection of the chest Resp: Auscultation: clear to auscultation bilaterally Cardio: Palpation: normal PMI Heart sounds: S1 normal heart sound present, S2 normal heart sound present, no gallops, no murmurs and no rubs GI: Palpation (GI): Soft to palpation Back/Spine/Pelvis: Other: unremarkable Skin: General skin exam: no rashes or lesions noted Neuro: General: patient oriented x3 Extrem: General: Yes normal to inspection Psych: Mental Status: mental status grossly normal Objective Labs and Meds 02/17/25 06:19 02/17/25 06:19 Lab results: Laboratory Results - last 24 hr 02/16/25 02/16/25 02/16/25 11:52 16:36 18:21 WBC RBC Hgb Hct MCV MCH MCHC RDW Plt Count MPV Immature Gran % (Auto) Neut % (Auto) Lymph % (Auto) [place] % (Auto) Eos % (Auto) Baso % (Auto) Lymph # (Auto) [place] # (Auto) Eos # (Auto) Baso # (Auto) Abs Immat Gran (auto) Absolute Neuts (auto) Absolute Nucleated RBC Nucleated RBC % (auto) Neutrophils % (Manual) Band Neutrophils % Lymphocytes % (Manual) Monocytes % (Manual) Metamyelocytes % Abs Neuts (Manual) Lymphocytes # (Manual) Monocytes # (Manual) Metamyelocytes # Toxic Granulation Toxic Vacuolation Platelet Estimate Large Platelets Plt Morphology Comment RBC Morphology Polychromasia Hypochromasia Basophilic Stippling Microcytosis Macrocytosis Stomatocytes Johnson-Ramsay Bodies Sodium Potassium Chloride Carbon Dioxide Anion Gap BUN Creatinine Estim Creat Clear Calc Estimated GFR POC Glucose 147 H 108 Random Glucose Lactic Acid 1.6 Calcium Phosphorus Magnesium Albumin PTH Intact Random Vancomycin 02/16/25 02/17/25 02/17/25 18:27 00:49 06:19 WBC 25.1 H RBC 2.67 L Hgb 7.8 L Hct 24.1 L MCV 90.3 MCH 29.2 MCHC 32.4 RDW 16.7 H Plt Count 80 L MPV TNP Immature Gran % (Auto) Cancelled Neut % (Auto) Cancelled Lymph % (Auto) Cancelled [place] % (Auto) Cancelled Eos % (Auto) Cancelled Baso % (Auto) Cancelled Lymph # (Auto) Cancelled [place] # (Auto) Cancelled Eos # (Auto) Cancelled Baso # (Auto) Cancelled Abs Immat Gran (auto) Cancelled Absolute Neuts (auto) Cancelled Absolute Nucleated RBC 0.370 H Nucleated RBC % (auto) 1.5 H Neutrophils % (Manual) 75 H Band Neutrophils % 6 H Lymphocytes % (Manual) 9 L Monocytes % (Manual) 7 Metamyelocytes % 3 Abs Neuts (Manual) 20.3 H Lymphocytes # (Manual) 2.3 Monocytes # (Manual) 1.8 H Metamyelocytes # 0.8 Toxic Granulation PRESENT Toxic Vacuolation PRESENT Platelet Estimate DECREASED Large Platelets PRESENT Plt Morphology Comment NOTED RBC Morphology NOTED Polychromasia 1+ (0-2) Hypochromasia 1+ (5-14) Basophilic Stippling 2+ (3-5) Microcytosis 1+ (5-14) Macrocytosis 1+ (5-14) Stomatocytes 1+ (5-14) Johnson-Ramsay Bodies PRESENT Sodium 134 L Potassium 4.2 Chloride 96 Carbon Dioxide 22 Anion Gap 20 BUN 83 H Creatinine 4.31 H* Estim Creat Clear Calc 17.6 Estimated GFR 12 POC Glucose 112 Random Glucose 112 Lactic Acid Calcium 8.5 Phosphorus 8.5 H Magnesium 2.2 Albumin 3.1 L PTH Intact 439.5 H Random Vancomycin 16.0 ECG Interpretation: EKG with sinus tachycardia; no clear ischemic changes; normal OK and corrected QT. Assessment and Plan (1) Bacteremia: Status: Acute (2) Infective endocarditis: Status: Acute (3) Systemic lupus erythematosus: Qualifiers: Systemic lupus erythematosus type: other Systemic lupus erythematosus organ involvement: glomerular disease Qualified Code(s): M32.14 - Glomerular disease in systemic lupus erythematosus Status: Acute (4) Acute renal failure (ARF): Status: Acute Plan Echocardiogram was a limited quality. Preserved LVEF at 55%. Near the tricuspid valve, in the right ventricular portion possible vegetation but could not well visualized. There was only mild tricuspid regurgitation. Blood cultures positive for E coli, Klebsiella, MRSA. Culture from 02/15 no growth. Most recent culture from yesterday is still pending. Overall, possible endocarditis but due to limited quality cannot say definitively. On exam, she does not have any overt tricuspid regurgitant murmur and there was no clear evidence of right heart failure either. With series comorbidities, she is not a good candidate for anything invasive. She will not be a surgical candidate. Main recommendation would be to continue antibiotics as guided by Infectious diseases. If she indeed does not clear blood cultures, we will need reassessment, possibly LIV. Procedures Date of Service Date of Service: 02/17/25
--- NOTE | 2025-02-17 12:09 | P.PNIM_ITS ---
Subjective Subjective Date of Service: 02/17/25 Interval History: Seen and examined this morning Follow-up for renal failure/lupus nephritis flare, respiratory failure, polymicrobial bacteremia, probable infective endocarditis Patient seen and evaluated in dialysis Awake, alert appears weak, no specific complaints Review of Systems Review of Systems: Yes all other systems are reviewed and are negative Constitutional Constitutional: Denies chills and Denies fever(s) Cardiovascular Cardiovascular: Denies chest pain Gastrointestinal Gastrointestinal: Denies abdominal pain Physical Exam 2 Vital Signs: Vital Signs: Last Vital Signs Temp 97.3 F 02/17/25 11:25 Pulse 121 H 02/17/25 11:25 Resp 20 02/17/25 11:25 BP 120/77 02/17/25 11:25 Pulse Ox 96 02/17/25 11:25 O2 Del Method High Flow Nasal C annula 02/17/25 11:25 O2 Flow Rate 40 02/17/25 11:25 FiO2 32 02/17/25 11:25 Oxygen Flow Rate 40 02/11/25 21:17 BMI result Body Mass Index 19.8 Const: General: cooperative, no acute distress, alert and awake Nutritional Appearance: average body habitus Orientation/consciousness: patient oriented x3 Resp: Other: on HFNC Effort & Inspection: normal respiratory effort, no respiratory distress and no use of accessory muscles Cardio: Rate: regular rate GI: Inspection: No distended Palpation (GI): Soft to palpation Neuro: Other: generalized weakness, able to move all 4 extremities General: patient oriented x3 Objective Data Active Medications Ceftriaxone Sodium (Ceftriaxone Sodium 2 Gm Vial) 2 gm IVPUSH Q24H [facility] Last Admin: 02/16/25 11:45 Dose: 2 gm Documented By: MOIZ Hydromorphone HCl (Hydromorphone Hcl 1 Mg/Ml Syringe) 1 mg IVPUSH Q3H PRN; Protocol PRN Reason: Pain, Severe (Pain Scale 7-10) Last Admin: 02/17/25 09:43 Dose: 1 mg Documented By: LIZABETH Vancomycin HCl 500 mg/ Sodium (Chloride) 110 mls @ 110 mls/hr IV ONCE ONE Stop: 02/12/25 22:59 Loperamide HCl (Loperamide Hcl 2 Mg Capsule) 4 mg PO Q6H PRN PRN Reason: Diarrhea Naloxone HCl (Naloxone Hcl 0.4 Mg/Ml Vial) 0.2 mg IVPUSH Q2M PRN PRN Reason: Excessive sedation or RR < 8 Omeprazole (Omeprazole 40 Mg Capsule.Dr) 40 mg PO BID@0630,1630 [facility] Last Admin: 02/17/25 06:33 Dose: 40 mg Documented By: CHRISTIAN Pharmacy Consult (Consult Rx Vancomycin Dosing) 1 each MISCELLANE DAILY PRN PRN Reason: Consult order Prednisone (Prednisone 20 Mg Tablet) 60 mg PO DAILY [facility] Sodium Chloride (0.9 % Sodium Chloride Flush 3 Ml Syringe) 3 ml IVFLUSH QSHIFT [facility] Last Admin: 02/17/25 09:45 Dose: 3 ml Documented By: LIZABETH Labs 02/17/25 06:19 02/17/25 06:19 Labs: Laboratory Results - last 24 hr 02/16/25 02/16/25 02/16/25 16:36 18:21 18:27 MCV MCH MCHC RDW Plt Count MPV Immature Gran % (Auto) Neut % (Auto) Lymph % (Auto) [place] % (Auto) Eos % (Auto) Baso % (Auto) Lymph # (Auto) [place] # (Auto) Eos # (Auto) Baso # (Auto) Abs Immat Gran (auto) Absolute Neuts (auto) Absolute Nucleated RBC Nucleated RBC % (auto) Neutrophils % (Manual) Band Neutrophils % Lymphocytes % (Manual) Monocytes % (Manual) Metamyelocytes % Abs Neuts (Manual) Lymphocytes # (Manual) Monocytes # (Manual) Metamyelocytes # Toxic Granulation Toxic Vacuolation Platelet Estimate Large Platelets Plt Morphology Comment RBC Morphology Polychromasia Hypochromasia Basophilic Stippling Microcytosis Macrocytosis Stomatocytes Johnson-[place]uther[place] Bodies Anion Gap Estim Creat Clear Calc Estimated GFR POC Glucose 108 Random Glucose Lactic Acid 1.6 Calcium Phosphorus Magnesium Albumin PTH Intact Random Vancomycin 16.0 02/17/25 02/17/25 00:49 06:19 MCV 90.3 MCH 29.2 MCHC 32.4 RDW 16.7 H Plt Count 80 L MPV TNP Immature Gran % (Auto) Cancelled Neut % (Auto) Cancelled Lymph % (Auto) Cancelled [place] % (Auto) Cancelled Eos % (Auto) Cancelled Baso % (Auto) Cancelled Lymph # (Auto) Cancelled [place] # (Auto) Cancelled Eos # (Auto) Cancelled Baso # (Auto) Cancelled Abs Immat Gran (auto) Cancelled Absolute Neuts (auto) Cancelled Absolute Nucleated RBC 0.370 H Nucleated RBC % (auto) 1.5 H Neutrophils % (Manual) 75 H Band Neutrophils % 6 H Lymphocytes % (Manual) 9 L Monocytes % (Manual) 7 Metamyelocytes % 3 Abs Neuts (Manual) 20.3 H Lymphocytes # (Manual) 2.3 Monocytes # (Manual) 1.8 H Metamyelocytes # 0.8 Toxic Granulation PRESENT Toxic Vacuolation PRESENT Platelet Estimate DECREASED Large Platelets PRESENT Plt Morphology Comment NOTED RBC Morphology NOTED Polychromasia 1+ (0-2) Hypochromasia 1+ (5-14) Basophilic Stippling 2+ (3-5) Microcytosis 1+ (5-14) Macrocytosis 1+ (5-14) Stomatocytes 1+ (5-14) Johnson-[place] Bodies PRESENT Anion Gap 20 Estim Creat Clear Calc 17.6 Estimated GFR 12 POC Glucose 112 Random Glucose 112 Lactic Acid Calcium 8.5 Phosphorus 8.5 H Magnesium 2.2 Albumin 3.1 L PTH Intact 439.5 H Random Vancomycin Microbiology Microbiology Results: Microbiology 02/15/25 20:03 Blood Culture - Preliminary Blood - Venous Prelim: GPC Gram Stain only 02/15/25 20:03 Blood Culture - Preliminary Blood - Venous No growth after 24 hours. 02/14/25 10:51 Blood Culture - Final Blood - Venous Methicillin Res Staph Aureus 02/14/25 10:27 Blood Culture - Final Blood - Venous Methicillin Res Staph Aureus Assessment and Plan (1) Infective endocarditis: Status: Acute (2) Bacteremia: Status: Acute (3) Acute hypoxic respiratory failure: Status: Acute (4) Right lower lobe pneumonia: Status: Acute (5) Acute renal failure (ARF): Status: Acute (6) Lupus nephritis: Status: Acute Plan This is a 29-year-old female with underlying lupus with lupus nephritis on 10 mg prednisone daily admitted on 02/11/2025 with dyspnea and hypoxia secondary to right-sided pneumonia with polymicrobial bacteremia requiring intubation and ventilatory support. Hospital course further complicated by acute renal failure requiring initiation of hemodialysis. Elevated by nephrology service with concern for possible lupus nephritis flare, started on high-dose systemic glucocorticoids. Extubated on 02/15/2025. Acute renal failure May be multifactorial due to KALEIGH from tubular injury due to sepsis as well as possible lupus nephritis Received high-dose steroids, transitioned to oral prednisone Received hemodialysis this morning Nephrology following Plan for renal biopsy when clinically stable Acute respiratory failure with hypoxia due to pneumonia Status post extubation Remains on high-flow oxygen, wean as tolerated severe sepsis due to Polymicrobial bacteremia and possible acute infective endocarditis Blood cultures growing E coli, Klebsiella, MRSA Echo nondiagnostic Seen by Cardiology, recommends treatment for infective endocarditis if repeat cultures positive Continue IV vancomycin, ceftriaxone ID consult pending repeat blood cultures from 02/16 pending normocytic anemia due to possible Acute GI bleed ?gastritis due to high-dose steroids (reported dark stools in ICU and stool heme occult +) H/H drifting down Continue oral PPI GI consult pending Trend H/H Thrombocytopenia Likely due to acute illness/sepsis Trend CBC sinus tachycardia ?due to pain EKG reviewed by cardiology - no further work up recommended at this time DVT prophylaxis-heparin discontinued due to dark stools; continue compression devices Quality Stroke Does the patient have a stroke diagnosis?: No VTE Prior VTE?: No VTE Risk Level:: Medical - moderate - high VTE Device Contraindication: N/A - Device Ordered VTE Drug Contraindication: Treatment Not Indicated
[2025-02-17] MEDS: cefTRIAXone sodium 2 GM VIAL IVPUSH (12:15)
[2025-02-17] MEDS: predniSONE 20 MG TABLET 60 MG PO (12:15)
[2025-02-17 12:20] LABS: Glucose, Whole Blood 121 mg/dL (60-115)
--- NOTE | 2025-02-17 12:20 | P.CNGI_ITS ---
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 intake and was found to have acute renal failure requiring renal replacement therapy and respiratory failure requiring mechanical ventilation secondary to sepsis from multifocal pneumonia. Course complicated by MRSA bacteremia. Patient was extubated on 02/15 and stepped down to [facility] yesterday. Gastroenterology has been consulted for question of anemia. Patient herself does not report any nausea, vomiting, changes in bowel habits. Reports stools are brown. Main complaint is generalized body aches but does not specifically report abd pain. Labs and imaging reviewed, significant for elevated white count with worsening bicytopenia-anemia and thrombocytopenia. INR 1.4 on admission, creatinine improving to 4.3 this morning. LFTs were normal [address] abdomen pelvis with hepatomegaly. Echocardiogram suggestive but not definitive for TV vegetation. Review of Systems 2 Review of Systems: Yes all other systems are reviewed and are negative PMFSH Past Medical History Medical History (Updated 02/17/25 @ 13:07 by Niecy Jaquez MD) Lupus nephritis Pericardial effusion Essential hypertension Rash Acute on chronic anemia Abnormal uterine bleeding Hypertensive urgency Anemia Depression Anxiety Fibromyalgia Lupus Family History Family History Mother Hypertension Type 2 diabetes mellitus Lupus Arthritis Maternal Grandmother Hypertension Type 2 diabetes mellitus Arthritis Surgical History Surgical History Hx of hernia repair Social History Social History Household Members: Spouse and Children Housing: Apartment Do you presently have visiting nurse or other home services: No Alcohol intake: former Comment: achy-lupus exacerbation Patient Tobacco Use Status: Current everyday Tobacco user Tobacco use type: Cigarette Cigarette Packs Per Day: 0.5 Cigarettes Per Day: 10.0 Years Smoked: 7 Smoked in Last 30 Days: Yes Use of substances other than those prescribed or required for medical reasons: Yes Substance Use Type: Marijuana Currently Displaying Signs/Symptoms of Drug Intoxication Withdrawal: No Have you been hit, kicked, punched, or otherwise hurt by someone within the past year? If so, by whom?: No Do you feel safe in your current relationship?: Yes Is there a partner from a previous relationship who is making you feel unsafe now?: No Are you made to feel afraid or neglected: No Advance Directives: Yes Advance Directives on File: Yes Advance Directives Date on File: 04/03/22 Do you have a plan to hurt others: No Plan Recently lost weight without trying: No Patient : No : No Poor oral hygiene: No service: No Current occupational status: disabled Meds Allergies Allergy/AdvReac Type Severity Reaction Status Date / Time mycophenolate mofetil AdvReac Intermediate GI upset Verified 02/11/25 16:49 gabapentin AdvReac Unknown Hives Verified 02/11/25 16:49 Active Medications: Current Medications Ceftriaxone Sodium (Ceftriaxone Sodium 2 Gm Vial) 2 gm IVPUSH Q24H [facility] Last Admin: 02/16/25 11:45 Dose: 2 gm Hydromorphone HCl (Hydromorphone Hcl 1 Mg/Ml Syringe) 1 mg IVPUSH Q3H PRN; Protocol PRN Reason: Pain, Severe (Pain Scale 7-10) Last Admin: 02/17/25 09:43 Dose: 1 mg Vancomycin HCl 500 mg/ Sodium (Chloride) 110 mls @ 110 mls/hr IV ONCE ONE Stop: 02/12/25 22:59 Loperamide HCl (Loperamide Hcl 2 Mg Capsule) 4 mg PO Q6H PRN PRN Reason: Diarrhea Naloxone HCl (Naloxone Hcl 0.4 Mg/Ml Vial) 0.2 mg IVPUSH Q2M PRN PRN Reason: Excessive sedation or RR < 8 Omeprazole (Omeprazole 40 Mg Capsule.) 40 mg PO BID@0630,1630 [facility] Last Admin: 02/17/25 06:33 Dose: 40 mg Pharmacy Consult (Consult Rx Vancomycin Dosing) 1 each MISCELLANE DAILY PRN PRN Reason: Consult order Prednisone (Prednisone 20 Mg Tablet) 60 mg PO DAILY [facility] Sodium Chloride (0.9 % Sodium Chloride Flush 3 Ml Syringe) 3 ml IVFLUSH QSHIFT [facility] Last Admin: 02/17/25 09:45 Dose: 3 ml Physical Exam 2 Vital Signs: Vital Signs: Last Vital Signs Temp 97.3 F 02/17/25 11:25 Pulse 121 H 02/17/25 11:25 Resp 22 H 02/17/25 12:12 BP 120/77 02/17/25 11:25 Pulse Ox 96 02/17/25 11:25 O2 Del Method High Flow Nasal C annula 02/17/25 11:25 O2 Flow Rate 40 02/17/25 11:25 FiO2 32 02/17/25 11:25 Oxygen Flow Rate 40 02/11/25 21:17 BMI result Body Mass Index 19.8 Young female, fatigued-appearing High-flow nasal cannula and Generalized muscular weakness and mild atrophy noted Abdomen is soft, mildly distended, nontender, hepatosplenomegaly appreciated No lower extremity edema Results Labs 02/17/25 06:19 02/17/25 06:19 Labs: Short CBC 02/17/25 Range/Units 06:19 WBC 25.1 H (4.8-10.8) X10*3/uL Hgb 7.8 L (12.0-16.0) g/dl Hct 24.1 L (37.0-47.0) % Plt Count 80 L (160-400) X10*3/uL BMP 02/17/25 06:19 Sodium 134 L Potassium 4.2 Chloride 96 Carbon Dioxide 22 BUN 83 H Creatinine 4.31 H* Calcium 8.5 Liver Function 02/17/25 Range/Units 06:19 Albumin 3.1 L (3.5-5.0) g/dL Microbiology Microbiology Results: Microbiology 02/15/25 20:03 Blood - Venous Blood Culture - Preliminary Prelim: GPC Gram Stain only 02/15/25 20:03 Blood - Venous Blood Culture - Preliminary No growth after 24 hours. 02/14/25 10:51 Blood - Venous Blood Culture - Final Methicillin Res Staph Aureus 02/14/25 10:27 Blood - Venous Blood Culture - Final Methicillin Res Staph Aureus 02/12/25 09:59 Blood - Venous Blood Culture - Final Methicillin Res Staph Aureus 02/12/25 09:48 Blood - Venous Blood Culture - Final Methicillin Res Staph Aureus 02/11/25 17:44 Blood - Venous Blood Culture - Final Escherichia coli Klebsiella oxytoca 02/11/25 17:17 Blood - Venous Blood Culture - Final Escherichia coli Klebsiella oxytoca Assessment and Plan (1) Bacteremia: Status: Acute (2) Acute renal failure (ARF): Status: Acute (3) Severe sepsis: Status: Acute (4) Bicytopenia: Status: Acute Plan Differential for worsening anemia includes inflammatory anemia, from kidney disease. Hemolysis less likely given normal bili but can check haptoglobin and LDH. With features of fever, hepatomegaly, bicytopenia, also have high suspicion for HLH triggered by multifocal pneumonia with context of underlying SLE any immunosuppression. Other differential include DIC. No GI bleeding has been reported by the patient. At this time, in the absence of overt GI hemorrhage, very low yield and high risk of endoscopic evaluation. Plan: - Check ferritin, triglycerides - Check LFTs - Check D Dimer, haptoglobin and LDH - Hold off diagnostic endoscopy at this time given high risk for anesthesia and low diagnostic yield in the absence of overt bleeding. Thank you for allowing me to participate in her care. Please do not hesitate to reach out for any questions or concerns. Procedures Date of Service Date of Service: 02/17/25
[2025-02-17 12:38] LABS: Haptoglobin 176 mg/dL (35-250)
[2025-02-17 12:49] LABS: Alanine Aminotransferase 20 U/L (0-31); Alkaline Phosphatase 87 U/L (39-117); Aspartate Amino Transferase 32 U/L (5-31); Bilirubin Direct 0.4 mg/dL (0.0-0.5); Bilirubin Total 0.5 mg/dL (0.0-1.0); Total Protein 6.9 g/dL (6.5-8.0); Triglycerides 352 mg/dL (<150)
[2025-02-17 13:31] LABS: Ferritin 2291 ng/mL (10-122); Lactate Dehydrogenase 455 U/L (122-220)
[2025-02-17] MEDS: LORazepam 0.5 MG TABLET 0.25 MG PO (14:36)
[2025-02-17 15:37] LABS: Hematocrit 26.7 % (37.0-47.0); Hemoglobin 8.7 g/dl (12.0-16.0)
[2025-02-17 15:41] LABS: D Dimer High Sensitivity 2135 NG/ML
[2025-02-17 16:05] LABS: Glucose, Whole Blood 111 mg/dL (60-115)
--- NOTE | 2025-02-17 16:39 | W.PM.DNNEP ---
Subjective Subjective Date of Service: 02/17/25 This patient was seen during dialysis. Interval history: Event s noted Awake, alert appears weak, Physical Exam Vital Signs: Vital Signs: Last Vital Signs Temp 97.8 F 02/17/25 15:07 Pulse 121 H 02/17/25 15:07 Resp 22 H 02/17/25 15:30 BP 138/77 02/17/25 15:07 Pulse Ox 97 02/17/25 15:07 O2 Del Method High Flow Nasal C annula 02/17/25 15:07 O2 Flow Rate 40 02/17/25 15:07 FiO2 32 02/17/25 15:07 Oxygen Flow Rate 40 02/11/25 21:17 BMI result Body Mass Index 19.8 Const: General: no acute distress Eyes: General: appearance normal, both eyes and all related structures EOM: EOMs intact bilaterally Neck: Neck: Yes supple Resp: Auscultation: diminished lung sounds Cardio: Rate: regular rate GI: Palpation (GI): Soft to palpation Skin: General skin exam: no rashes or lesions noted Neuro: Other: Intubated General: moves all extremities Extrem: General: Yes no pedal edema Assessment & Plan Assessment and plan (1) Bacteremia: Status: Acute (2) Acute renal failure (ARF): Status: Acute (3) Severe sepsis: Status: Acute (4) Bicytopenia: Status: Acute Plan [place] likely due to tubular injury from sepsis Likely has active lupus nephritis Complement level pending Has been initiated on HD Shall dialyze again tomorrow (Friday) Finishing 500 mg of Methyl pred daily for 3 days Prednisone 60 mg Will need PCP prophylaxis 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 Procedures Date of Service Date of Service: 02/17/25
[2025-02-17 16:59] LABS: Mycoplasma Pneumoniae - IgG 1.41 (<=0.90); Mycoplasma Pneumoniae - IgM 218 U/mL (<770)
--- NOTE | 2025-02-17 17:19 | PC.NURSE ---
At [address] 120s-130s sustaining for 2 hr; Pt on high flow, O2 sat 96%. Pt denied chest pain or dizziness; ELLA Alcaraz was notified; EKG ordered and done; Pt to be continuously monitored; Pain meds to be given; Satefy and fall precautions maintained;
[2025-02-17 17:26] LABS: Fibrinogen 534 MG/DL (259-690)
[2025-02-17 18:38] LABS: Vancomycin Random 9.1 mcg/mL (15-20)
[2025-02-17] MEDS: vancomycin HCL 500 MG in 0.9 % Sodium Chloride 100 ML 110 MG IV (19:38)
[2025-02-17 23:20] LABS: Glucose, Whole Blood 83 mg/dL (60-115)
[2025-02-18] VITALS (7 sets, daily range): BP systolic 110–139; BP diastolic 55–78; PULSE 110–138; RESP 17–20; TEMP 36.6–37.3; O2SAT 91–100; BMI 18.9
[2025-02-18] MEDS: HYDROmorphone HCl 1 MG/ML SYRINGE IVPUSH ×3 (00:17→06:16)
[2025-02-18 01:53] LABS: Legionella Ag Urine Not Detected (Not Detected)
[2025-02-18] MEDS: Metoprolol Tartrate 5 MG/5 ML VIAL IVPUSH (03:30)
[2025-02-18] MEDS: Omeprazole 40 MG CAPSULE.DR PO ×2 (06:16→14:51)
[2025-02-18 06:21] LABS: Glucose, Whole Blood 122 mg/dL (60-115)
[2025-02-18 07:10] LABS: Mean Corpuscular Volume 93.6 fL (80.0-98.0); PLT CLUMP 1; Red Blood Count 2.67 X10*6/uL (4.20-5.50); Red Cell Distribution Width 16.9 % (11.0-16.0)
[2025-02-18 07:19] LABS: NRBC Pct Auto 1.8 /100WBC (0.0-0.2)
[2025-02-18 07:28] LABS: Anion Gap 20 (12-20); Blood Urea Nitrogen 55 mg/dL (9-16); Carbon Dioxide 22 mmol/L (22-29); Chloride 93 mmol/L (96-108); Creatinine Clr Calc Pharmacy 18.4; Estimated Glomerular Filt Rate 13; Glucose Random 111 mg/dL (60-115); Potassium 3.5 mmol/L (3.3-5.1); Sodium 131 mmol/L (135-145)
[2025-02-18 07:57] LABS: Magnesium 1.7 mg/dL (1.6-2.6)
[2025-02-18 08:11] LABS: TSH reflex Free T4 1.95 uIU/mL (0.32-4.0)
[2025-02-18] MEDS: predniSONE 20 MG TABLET 60 MG PO (08:18)
[2025-02-18] MEDS: Azithromycin 500 MG in 0.9 % Sodium Chloride 250 ML 125 MG IV (08:19)
[2025-02-18] MEDS: 0.9 % Sodium Chloride Flush 3 ML SYRINGE IVFLUSH ×3 (08:22→21:24)
[2025-02-18] MEDS: HYDROmorphone HCl 1 MG/ML SYRINGE 1.25 MG IVPUSH ×5 (08:30→21:22)
[2025-02-18 09:43] LABS: Band Neutrophils Percent 4 % (3-5); Lymphocytes Percent Manual 10 % (20-40); Metamyelocytes Percent 1 %; Monocytes Percent Manual 2 % (2-11); Myelocytes Percent 1 %; Neutrophils Percent Manual 81 % (45-73); Promyelocytes Percent 1 %
[2025-02-18 09:44] LABS: Macrocytosis 2+ (15-30) /OIF; Microcytosis 2+ (15-30) /OIF; Platelet Estimate SLIGHTLY DECREASED (NORMAL); RBC Morphology NOTED
[2025-02-18 09:45] LABS: Large Platelet PRESENT; Platelet Morphology Comment NOTED
[2025-02-18 09:47] LABS: Basophilic Stippling 1+ (0-2) /OIF
[2025-02-18 09:49] LABS: Hypersegmented Neutrophils PRESENT; Polychromasia 1+ (0-2) /OIF; Toxic Vacuolation PRESENT
[2025-02-18] MEDS: guaiFEN/Codeine SF 200/20/10ML 10 ML LIQUID 5 ML PO ×2 (10:34→17:07)
[2025-02-18] MEDS: cefTRIAXone sodium 2 GM VIAL IVPUSH (10:35)
[2025-02-18] MEDS: oxyCODONE HCl Immed Release 5 MG TABLET PO ×3 (10:43→23:35)
[2025-02-18 11:32] LABS: Glucose, Whole Blood 93 mg/dL (60-115)
--- NOTE | 2025-02-18 12:25 | P.CNID_ITS ---
History of Present Illness Data of Consult Service Date: 02/18/25 Requesting physician: Yumiko Alcaraz Primary Care Provider: Vic Pompa DO HPI Reason for consult: shortness of breath She presents with cough and shortness of breath for a day and chills. She has MRSA 02/12, 6/ now cleared. She also has E coli and Klebsiella 02/11 blood. She has had prior E coli year ago in urine. 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 Review of Systems 2 Cardiovascular: Cardiovascular: Reports dyspnea Respiratory: Respiratory: Reports dyspnea [facility] Past Medical History Medical History Lupus nephritis Pericardial effusion Essential hypertension Rash Acute on chronic anemia Abnormal uterine bleeding Hypertensive urgency Anemia Depression Anxiety Fibromyalgia Lupus Family History Family History Mother Hypertension Type 2 diabetes mellitus Lupus Arthritis Maternal Grandmother Hypertension Type 2 diabetes mellitus Arthritis Family history: reviewed and not pertinent Surgical History Surgical History Hx of hernia repair Social History Social History Household Members: Spouse and Children Housing: Apartment Do you presently have visiting nurse or other home services: No Alcohol intake: former Comment: achy-lupus exacerbation Patient Tobacco Use Status: Current everyday Tobacco user Tobacco use type: Cigarette Cigarette Packs Per Day: 0.5 Cigarettes Per Day: 10.0 Years Smoked: 7 Smoked in Last 30 Days: Yes Use of substances other than those prescribed or required for medical reasons: Yes Substance Use Type: Marijuana Currently Displaying Signs/Symptoms of Drug Intoxication Withdrawal: No Have you been hit, kicked, punched, or otherwise hurt by someone within the past year? If so, by whom?: No Do you feel safe in your current relationship?: Yes Is there a partner from a previous relationship who is making you feel unsafe now?: No Are you made to feel afraid or neglected: No Advance Directives: Yes Advance Directives on File: Yes Advance Directives Date on File: 04/03/22 Do you have a plan to hurt others: No Plan Recently lost weight without trying: No Patient : No : No Poor oral hygiene: No service: No Current occupational status: disabled Meds Allergies Allergy/AdvReac Type Severity Reaction Status Date / Time mycophenolate mofetil AdvReac Intermediate GI upset Verified 02/11/25 16:49 gabapentin AdvReac Unknown Hives Verified 02/11/25 16:49 Active Medications: Current Medications Ceftriaxone Sodium (Ceftriaxone Sodium 2 Gm Vial) 2 gm IVPUSH Q24H [facility] Last Admin: 02/18/25 10:35 Dose: 2 gm Guaifenesin/Codeine Phosphate (Guaifen/Codeine Sf 200/20/10ml 10 Ml Liquid) 5 ml PO Q6H PRN PRN Reason: Cough Last Admin: 02/18/25 10:34 Dose: 5 ml Hydromorphone HCl (Hydromorphone Hcl 1 Mg/Ml Syringe) 1.25 mg IVPUSH Q3H PRN; Protocol PRN Reason: Pain, Severe (Pain Scale 7-10) Last Admin: 02/18/25 11:55 Dose: 1.25 mg Vancomycin HCl 500 mg/ Sodium (Chloride) 110 mls @ 110 mls/hr IV ONCE ONE Stop: 02/12/25 22:59 Loperamide HCl (Loperamide Hcl 2 Mg Capsule) 4 mg PO Q6H PRN PRN Reason: Diarrhea Naloxone HCl (Naloxone Hcl 0.4 Mg/Ml Vial) 0.2 mg IVPUSH Q2M PRN PRN Reason: Excessive sedation or RR < 8 Omeprazole (Omeprazole 40 Mg Capsule.Dr) 40 mg PO BID@0630,1630 [facility] Last Admin: 02/18/25 06:16 Dose: 40 mg Oxycodone HCl (Oxycodone Hcl Immed Release 5 Mg Tablet) 5 mg PO Q6H PRN PRN Reason: Pain, Moderate(Pain Scale 4-6) Last Admin: 02/18/25 10:43 Dose: 5 mg Pharmacy Consult (Consult Rx Vancomycin Dosing) 1 each MISCELLANE DAILY PRN PRN Reason: Consult order Prednisone (Prednisone 20 Mg Tablet) 60 mg PO DAILY [facility] Last Admin: 02/18/25 08:18 Dose: 60 mg Sodium Chloride (0.9 % Sodium Chloride Flush 3 Ml Syringe) 3 ml IVFLUSH QSHIFT [facility] Last Admin: 02/18/25 08:22 Dose: 3 ml Physical Exam 2 Vital Signs: Vital Signs: Last Vital Signs Temp 99.0 F 02/18/25 07:18 Pulse 122 H 02/18/25 07:18 Resp 19 02/18/25 07:31 BP 121/58 L 02/18/25 07:18 Pulse Ox 96 02/18/25 07:18 O2 Del Method High Flow Nasal C annula 02/18/25 07:18 O2 Flow Rate 40 02/18/25 07:18 FiO2 33 02/18/25 07:18 Oxygen Flow Rate 40 02/11/25 21:17 BMI result Body Mass Index 18.9 Const: General: cooperative HEENT: Head: Yes normal to inspection Face and sinus: Yes normal facial exam Mouth: Normal oral and palatal mucosa present Teeth and gingiva: d entition normal Eyes: General: appearance normal, both eyes and all related structures P upils: Equal, round and reactive pupils present Resp: Effort & Inspection: abnormal respiratory pattern Cardio: Rate: regular rate Rhythm: regular rhythm GI: Palpation (GI): Soft to palpation and nontender : General: Yes no CVA tenderness Back/Spine/Pelvis: Back: no CVA tenderness Skin: General skin exam: no rashes or lesions noted Neuro: General: moves all extremities Cranial nerves: Yes Equal, round and reactive pupils present Extrem: General: Yes normal to inspection Psych: Appearance: grossly normal Results Labs 02/18/25 06:53 02/18/25 06:53 Labs: Short CBC 02/17/25 02/18/25 Range/Units 14:57 06:53 Hgb 8.7 L 8.0 L (12.0-16.0) g/dl Hct 26.7 L 25.0 L (37.0-47.0) % BMP 02/18/25 06:53 Sodium 131 L Potassium 3.5 Chloride 93 L Carbon Dioxide 22 BUN 55 H Creatinine 3.94 H Calcium 8.0 L Cardiac Enzymes 02/18/25 Range/Units 06:53 Total Creatine Kinase 41 (26-140) U/L Liver Function 02/17/25 Range/Units 06:19 Total Bilirubin 0.5 (0.0-1.0) mg/dL Direct Bilirubin 0.4 (0.0-0.5) mg/dL AST 32 H (5-31) U/L ALT 20 (0-31) U/L Alkaline Phosphatase 87 (39-117) U/L Albumin 3.1 L (3.5-5.0) g/dL Microbiology Microbiology Results: Microbiology 02/15/25 20:03 Blood - Venous Blood Culture - Final Methicillin Res Staph Aureus 02/15/25 20:03 Blood - Venous Blood Culture - Preliminary No growth after 48 hours. 02/16/25 16:36 Blood - Venous Blood Culture - Preliminary No growth after 24 hours. 02/16/25 16:36 Blood - Venous Blood Culture - Preliminary No growth after 24 hours. 02/14/25 10:51 Blood - Venous Blood Culture - Final Methicillin Res Staph Aureus 02/14/25 10:27 Blood - Venous Blood Culture - Final Methicillin Res Staph Aureus 02/12/25 09:59 Blood - Venous Blood Culture - Final Methicillin Res Staph Aureus 02/12/25 09:48 Blood - Venous Blood Culture - Final Methicillin Res Staph Aureus 02/11/25 17:44 Blood - Venous Blood Culture - Final Escherichia coli Klebsiella oxytoca 02/11/25 17:17 Blood - Venous Blood Culture - Final Escherichia coli Klebsiella oxytoca Assessment and Plan (1) Bacteremia: Status: Acute (2) Acute hypoxic respiratory failure: Status: Acute (3) Right lower lobe pneumonia: Status: Acute (4) Infective endocarditis: Status: Acute Plan There is concern for patient with multiple comorbidities and lupus. 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 I believe she has source possible skin. I believe she has E coli bacteremia from urine source. Both bacteremias have resolved She may have some underlying conduction disturbance with somewhat long QTC. I think she has paraflu implicated in underlying failure of respiratory status to improve as well as MRSA. I believe she does not have acute mycoplasma pneumonia as RVP negative and serologies not that helpful as can linger for months and can be nonspecific. Suggest Can switch to IV Daptomycin renal dose adjust and stop Vancomycin for more ease of administration,total 6 weeks Continue IV CTX for now until improves and then finish po Ceftin 14 d total. Would consider LIV when stable check valve ring abscess Would stop azithromycin as no evidence of mycoplasma and concern over potential cardiac effects.
--- NOTE | 2025-02-18 12:54 | PM.HEMONCCN ---
Subjective - Subjective Chief complaint: Weakness Patient: new to practice Consult date: 02/18/25 Primary Care Provider: Vic Pompa, DO Soda Clerk Utilized?: No - Tongan Speaking HPI - Consult Narrative Reason for consult: Suspicion for HLH, hemophagocytic lymphohistiocytosis Narrative: Trey Canales is a 29 year old female with past medical history significant for SLE, lupus nephritis, hypertension, anemia who presented to [facility] [place] on 02/11/2025 with complaints of dyspnea, cough, fever, poor oral intake, nausea, vomiting and diarrhea. She was admitted to ICU for severe sepsis from right lobe pneumonia. Patient was also found to be in acute renal failure with a serum creatinine of 11.9. She was intubated briefly for acute respiratory failure on extubated on 02/15/2025. She was started on hemodialysis for acute renal failure and started on high-dose systemic glucocorticoids for possible lupus nephritis flare. She was found to have positive blood cultures for E coli, Klebsiella and MRSA. She was started on broad-spectrum antibiotics. She has developed gradually worsening anemia and thrombocytopenia. Review of Systems - Constitutional Reports as per HPI - Neurologic Reports no additional neurologic complaints, Reports as per HPI [facility] Medical History: Medical History (Last Reviewed 02/18/25 @ 12:30 by Martha Shipman MD) Abnormal uterine bleeding Acute on chronic anemia Anemia Anxiety Depression Essential hypertension Fibromyalgia Hypertensive urgency Lupus Lupus nephritis Pericardial effusion Rash Family History: Family History (Last Reviewed 02/18/25 @ 12:30 by Martha Shipman MD) Mother Hypertension Type 2 diabetes mellitus Lupus Arthritis Maternal Grandmother Hypertension Type 2 diabetes mellitus Arthritis Family history: reviewed and not pertinent Surgical History: Surgical History (Last Reviewed 02/18/25 @ 12:30 by Martha Shipman MD) Hx of hernia repair Social History: Social History (Last Reviewed 02/18/25 @ 12:30 by Martha Shipman MD) Living Situation History: Household Members: Spouse Household Members: Children Housing: Apartment Do you presently have visiting nurse or other home services: No Alcohol History Details: 1. How often do you have a drink containing alcohol?: a. Never AUDIT-C Alcohol total score: 0 Currently Displaying Signs/Symptoms of Alcohol Withdrawal: No Tobacco History: Patient Tobacco Use Status: Current everyday Tobacco Tobacco use type: Cigarette Cigarette Packs Per Day: 0.5 Cigarettes Per Day: 10.0 Years Smoked: 7 Smoked in Last 30 Days: Yes Substance Use History: Use of substances other than those prescribed or required for medical reasons: Yes Substance Use Type: Marijuana Currently Displaying Signs/Symptoms of Drug Intoxication Withdrawal: No Domestic Abuse History: Have you been hit, kicked, punched, or otherwise hurt by someone within the past year? If so, by whom?: No Do you feel safe in your current relationship?: Yes Is there a partner from a previous relationship who is making you feel unsafe now?: No Are you made to feel afraid or neglected: No Advance Directives: Advance Directives: Yes Advance Directives on File: Yes Advance Directives Date on File: 04/03/22 Homicidal Assessment: Do you have a plan to hurt others: No Plan Nutrition Assessment: Recently lost weight without trying: No Patient : No : No Poor oral hygiene: No Occupation Assessmet: service: No Current occupational status: disabled Home Medications and Allergies Current Medications: Current Medications Ceftriaxone Sodium (Ceftriaxone Sodium 2 Gm Vial) 2 gm IVPUSH Q24H [facility] Last Admin: 02/18/25 10:35 Dose: 2 gm Guaifenesin/Codeine Phosphate (Guaifen/Codeine Sf 200/20/10ml 10 Ml Liquid) 5 ml PO Q6H PRN PRN Reason: Cough Last Admin: 02/18/25 10:34 Dose: 5 ml Hydromorphone HCl (Hydromorphone Hcl 1 Mg/Ml Syringe) 1.25 mg IVPUSH Q3H PRN; Protocol PRN Reason: Pain, Severe (Pain Scale 7-10) Last Admin: 02/18/25 11:55 Dose: 1.25 mg Vancomycin HCl 500 mg/ Sodium (Chloride) 110 mls @ 110 mls/hr IV ONCE ONE Stop: 02/12/25 22:59 Loperamide HCl (Loperamide Hcl 2 Mg Capsule) 4 mg PO Q6H PRN PRN Reason: Diarrhea Naloxone HCl (Naloxone Hcl 0.4 Mg/Ml Vial) 0.2 mg IVPUSH Q2M PRN PRN Reason: Excessive sedation or RR < 8 Omeprazole (Omeprazole 40 Mg Capsule.Dr) 40 mg PO BID@0630,1630 [facility] Last Admin: 02/18/25 06:16 Dose: 40 mg Oxycodone HCl (Oxycodone Hcl Immed Release 5 Mg Tablet) 5 mg PO Q6H PRN PRN Reason: Pain, Moderate(Pain Scale 4-6) Last Admin: 02/18/25 10:43 Dose: 5 mg Pharmacy Consult (Consult Rx Vancomycin Dosing) 1 each MISCELLANE DAILY PRN PRN Reason: Consult order Prednisone (Prednisone 20 Mg Tablet) 60 mg PO DAILY [facility] Last Admin: 02/18/25 08:18 Dose: 60 mg Sodium Chloride (0.9 % Sodium Chloride Flush 3 Ml Syringe) 3 ml IVFLUSH QSHIFT [facility] Last Admin: 02/18/25 08:22 Dose: 3 ml Allergies Allergy/AdvReac Type Severity Reaction Status Date / Time mycophenolate mofetil AdvReac Intermediate GI upset Verified 02/11/25 16:49 gabapentin AdvReac Unknown Hives Verified 02/11/25 16:49 Physical Exam Vital signs: Vital Signs Temp 99.0 F 02/18/25 07:18 Pulse 122 H 02/18/25 07:18 Resp 19 02/18/25 07:31 BP 121/58 L 02/18/25 07:18 Pulse Ox 96 02/18/25 07:18 O2 Del Method High Flow Nasal Cannula 02/18/25 07:18 O2 Flow Rate 40 02/18/25 07:18 FiO2 33 02/18/25 07:18 Intake & Output 02/17/25 02/18/25 02/18/25 18:59 06:59 18:59 Intake Total 650 / 880 230 / 880 250 / 250 Output Total 0 / 0 Balance 650 / 880 230 / 880 250 / 250 Urine Output (Average ml/kg/hr) 0.00 0.00 Intake: Intake, Oral Amount 450 / 570 120 / 570 Continuous Bladder Irrigation 0 / 0 Fluid - Amount Retained Urethral 0 / 0 Intake, IV Amount 200 / 310 110 / 310 250 / 250 Acetaminophen 1,000 mg In 100 200 / 200 ml @ 400 mls/hr IV Q6H [facility] Rx#: [id number] Azithromycin 500 mg In 0.9 % 250 / 250 Sodium Chloride 250 ml @ 125 mls/hr IV ONCE ONE Rx#: [id number] vancomycin HCL 500 mg In 0.9 % 110 / 110 Sodium Chloride 100 ml @ 110 mls/hr IV ONCE ONE Rx#: [id number] Output: Output, Urine Amount 0 / 0 Other: Meal Refused No NPO No Breakfast % Eaten 0% Lunch % Eaten 25% Dinner % Eaten 25% Eating (Feeding) Ability Set Up only Number of Unmeasured Voids 0 Number of Bowel Movements 1 Last Bowel Movement 02/17/25 02/17/25 02/17/25 Stool Bedpan Stool Amount Large Stool Color Black ([place]) Weight 56.3 kg Weight in Grams [id number] Weight 56.3 kg - Constitutional Present: no acute distress, chronically ill appearing - Routine HEENT Exam Head: Present: normal inspection Eye: Present: EOMI, PERRL - Routine Neck Exam Absent: lymphadenopathy - Routine Respiratory Exam Absent: stridor, wheezes - Routine Cardiovascular Exam Cardiovascular: Present: S1, S2 - Routine Extremities Exam Absent: pedal edema - Routine Skin Exam Present: intact - Routine Neurological Exam Present: alert, oriented X3 Hem/Onc Consult Result - Labs CBC & Chem 7: 02/18/25 06:53 02/18/25 06:53 Labs: Short CBC 02/17/25 02/18/25 Range/Units 14:57 06:53 Hgb 8.7 L 8.0 L (12.0-16.0) g/dl Hct 26.7 L 25.0 L (37.0-47.0) % BMP 02/18/25 06:53 Sodium 131 L Potassium 3.5 Chloride 93 L Carbon Dioxide 22 BUN 55 H Creatinine 3.94 H Calcium 8.0 L Cardiac Enzymes 02/18/25 Range/Units 06:53 Total Creatine Kinase 41 (26-140) U/L Assessment and Plan Patient Active problem list reviewed?: Yes (1) Bicytopenia Status: Acute Assessment and plan: 1. This is a 29-year-old woman with systemic lupus erythematosus, lupus nephritis who is currently admitted for sepsis, acute respiratory failure, bacterial pneumonia and acute renal failure necessitating hemodialysis. She was extubated on 02/15/25. She was found to have E coli and Klebsiella in blood. She has parainfluenza 3, MRSA which is now cleared. She is undergoing hemodialysis for acute lupus nephritis flare. She is on systemic steroids with prednisone. She developed anemia and thrombocytopenia and concern was raised for HLH or hemophagocytic lymphohistiocytosis. She does not meet any criteria for HLH. Her anemia is secondary to renal failure, platelets are improving. She does not have unexplained fever, lymphadenopathy, splenomegaly or hypofibrinogenemia. The degree of elevation of ferritin is very mild considering her ongoing issues. Ferritin is an acute phase reactant, for HLH this is usually in the range of 10,000. Overall, she is improving with current management. I do not recommend any further workup for her cytopenias or HLH. Thank you. - Time Spent With Patient Time Spent with Patient (in minutes): 20
[2025-02-18 13:02] LABS: Lymphocytes Absolute Manual 2.8 X10*3/uL (1.2-4.9); Metamyelocytes Absolute 0.3 X10*3/uL; Monocytes Absolute Manual 0.6 X10*3/uL (0.1-1.2); Myelocytes Absolute 0.3 X10*/uL; Neutrophils Absolute Manual 23.5 X10*3/uL (2.0-8.3); Platelet Count 125 X10*3/uL (160-400); Promyelocytes Absolute 0.3 X10*3/uL; White Blood Count 27.7 X10*3/uL (4.8-10.8)
--- NOTE | 2025-02-18 13:13 | HO.PM.IMPN ---
Subjective Subjective Date of Service: 02/18/25 Interval History: seen and examined this morning follow up for respiratory failure, bacteremia, endocarditis, renal failure widespread body pain cough Review of Systems Review of Systems: Yes all other systems are reviewed and are negative Constitutional Constitutional: Denies chills and Denies fever(s) Cardiovascular Cardiovascular: Denies chest pain and Denies palpitations Respiratory Respiratory: Reports cough Endocrine Endocrine: Denies palpitations Physical Exam Vital Signs: Vital Signs: Last Vital Signs Temp 99.0 F 02/18/25 07:18 Pulse 122 H 02/18/25 07:18 Resp 19 02/18/25 07:31 BP 121/58 L 02/18/25 07:18 Pulse Ox 96 02/18/25 07:18 O2 Del Method High Flow Nasal C annula 02/18/25 07:18 O2 Flow Rate 40 02/18/25 07:18 FiO2 33 02/18/25 07:18 Oxygen Flow Rate 40 02/11/25 21:17 BMI result Body Mass Index 18.9 Const: General: cooperative, no acute distress, alert and awake Nutritional Appearance: average body habitus Orientation/consciousness: patient oriented x3 Resp: Other: on HFNC Effort & Inspection: normal respiratory effort, no respiratory distress and no use of accessory muscles Cardio: Rate: regular rate GI: Inspection: No distended Palpation (GI): Soft to palpation Neuro: Other: generalized weakness, able to move all 4 extremities General: patient oriented x3 Objective Data Active Medications Ceftriaxone Sodium (Ceftriaxone Sodium 2 Gm Vial) 2 gm IVPUSH Q24H [facility] Last Admin: 02/18/25 10:35 Dose: 2 gm Documented By: HAMILTON Guaifenesin/Codeine Phosphate (Guaifen/Codeine Sf 200/20/10ml 10 Ml Liquid) 5 ml PO Q6H PRN PRN Reason: Cough Last Admin: 02/18/25 10:34 Dose: 5 ml Documented By: HAMILTON Hydromorphone HCl (Hydromorphone Hcl 1 Mg/Ml Syringe) 1.25 mg IVPUSH Q3H PRN; Protocol PRN Reason: Pain, Severe (Pain Scale 7-10) Last Admin: 02/18/25 11:55 Dose: 1.25 mg Documented By: HAMILTON Vancomycin HCl 500 mg/ Sodium (Chloride) 110 mls @ 110 mls/hr IV ONCE ONE Stop: 02/12/25 22:59 Loperamide HCl (Loperamide Hcl 2 Mg Capsule) 4 mg PO Q6H PRN PRN Reason: Diarrhea Naloxone HCl (Naloxone Hcl 0.4 Mg/Ml Vial) 0.2 mg IVPUSH Q2M PRN PRN Reason: Excessive sedation or RR < 8 Omeprazole (Omeprazole 40 Mg Capsule.Dr) 40 mg PO BID@0630,1630 [facility] Last Admin: 02/18/25 06:16 Dose: 40 mg Documented By: CHRISTIAN Oxycodone HCl (Oxycodone Hcl Immed Release 5 Mg Tablet) 5 mg PO Q6H PRN PRN Reason: Pain, Moderate(Pain Scale 4-6) Last Admin: 02/18/25 10:43 Dose: 5 mg Documented By: HAMILTON Pharmacy Consult (Consult Rx Vancomycin Dosing) 1 each MISCELLANE DAILY PRN PRN Reason: Consult order Prednisone (Prednisone 20 Mg Tablet) 60 mg PO DAILY [facility] Last Admin: 02/18/25 08:18 Dose: 60 mg Documented By: HAMILTON Sodium Chloride (0.9 % Sodium Chloride Flush 3 Ml Syringe) 3 ml IVFLUSH QSHIFT [facility] Last Admin: 02/18/25 08:22 Dose: 3 ml Documented By: HAMILTON Labs 02/18/25 06:53 02/18/25 06:53 Labs: Laboratory Results - last 24 hr 02/11/25 02/11/25 02/17/25 20:37 20:51 06:19 MCV MCH MCHC RDW Plt Count MPV Immature Gran % (Auto) Neut % (Auto) Lymph % (Auto) [place] % (Auto) Eos % (Auto) Baso % (Auto) Lymph # (Auto) [place] # (Auto) Eos # (Auto) Baso # (Auto) Abs Immat Gran (auto) Absolute Neuts (auto) Absolute Nucleated RBC Nucleated RBC % (auto) Neutrophils % (Manual) Band Neutrophils % Lymphocytes % (Manual) Monocytes % (Manual) Metamyelocytes % Myelocytes % Promyelocytes % Abs Neuts (Manual) Lymphocytes # (Manual) Monocytes # (Manual) Metamyelocytes # Myelocytes # Promyelocytes # Hypersegmented Neuts Toxic Vacuolation Platelet Estimate Large Platelets Plt Morphology Comment RBC Morphology Polychromasia Basophilic Stippling Microcytosis Macrocytosis Fibrinogen D-Dimer High Sensitivty Anion Gap Estim Creat Clear Calc Estimated GFR POC Glucose Random Glucose Calcium Magnesium Ferritin 2291 H Lactate Dehydrogenase 455 H Total Creatine Kinase TSH Random Vancomycin Ur L.pneumophila Ag Not Detected Mycoplasma pneumon IgG 1.41 H Mycoplasma pneumon IgM 218 02/17/25 02/17/25 02/17/25 14:57 15:17 18:01 MCV MCH MCHC RDW Plt Count MPV Immature Gran % (Auto) Neut % (Auto) Lymph % (Auto) [place] % (Auto) Eos % (Auto) Baso % (Auto) Lymph # (Auto) [place] # (Auto) Eos # (Auto) Baso # (Auto) Abs Immat Gran (auto) Absolute Neuts (auto) Absolute Nucleated RBC Nucleated RBC % (auto) Neutrophils % (Manual) Band Neutrophils % Lymphocytes % (Manual) Monocytes % (Manual) Metamyelocytes % Myelocytes % Promyelocytes % Abs Neuts (Manual) Lymphocytes # (Manual) Monocytes # (Manual) Metamyelocytes # Myelocytes # Promyelocytes # Hypersegmented Neuts Toxic Vacuolation Platelet Estimate Large Platelets Plt Morphology Comment RBC Morphology Polychromasia Basophilic Stippling Microcytosis Macrocytosis Fibrinogen 534 D-Dimer High Sensitivty 2135 Anion Gap Estim Creat Clear Calc Estimated GFR POC Glucose 111 Random Glucose Calcium Magnesium Ferritin Lactate Dehydrogenase Total Creatine Kinase TSH Random Vancomycin 9.1 L Ur L.pneumophila Ag Mycoplasma pneumon IgG Mycoplasma pneumon IgM 02/17/25 02/18/25 02/18/25 23:17 06:17 06:53 MCV 93.6 MCH 30.0 MCHC 32.0 RDW 16.9 H Plt Count 125 L D MPV Not Reportable Immature Gran % (Auto) Cancelled Neut % (Auto) Cancelled Lymph % (Auto) Cancelled [place] % (Auto) Cancelled Eos % (Auto) Cancelled Baso % (Auto) Cancelled Lymph # (Auto) Cancelled [place] # (Auto) Cancelled Eos # (Auto) Cancelled Baso # (Auto) Cancelled Abs Immat Gran (auto) Cancelled Absolute Neuts (auto) Cancelled Absolute Nucleated RBC 0.490 H Nucleated RBC % (auto) 1.8 H Neutrophils % (Manual) 81 H Band Neutrophils % 4 Lymphocytes % (Manual) 10 L Monocytes % (Manual) 2 Metamyelocytes % 1 Myelocytes % 1 Promyelocytes % 1 Abs Neuts (Manual) 23.5 H Lymphocytes # (Manual) 2.8 Monocytes # (Manual) 0.6 Metamyelocytes # 0.3 Myelocytes # 0.3 Promyelocytes # 0.3 Hypersegmented Neuts PRESENT Toxic Vacuolation PRESENT Platelet Estimate SLIGHTLY DECREASED Large Platelets PRESENT Plt Morphology Comment NOTED RBC Morphology NOTED Polychromasia 1+ (0-2) Basophilic Stippling 1+ (0-2) Microcytosis 2+ (15-30) Macrocytosis 2+ (15-30) Fibrinogen D-Dimer High Sensitivty Anion Gap 20 Estim Creat Clear Calc 18.4 Estimated GFR 13 POC Glucose 83 122 H Random Glucose 111 Calcium 8.0 L Magnesium 1.7 Ferritin Lactate Dehydrogenase Total Creatine Kinase 41 TSH 1.95 Random Vancomycin Ur L.pneumophila Ag Mycoplasma pneumon IgG Mycoplasma pneumon IgM 02/18/25 11:28 MCV MCH MCHC RDW Plt Count MPV Immature Gran % (Auto) Neut % (Auto) Lymph % (Auto) [place] % (Auto) Eos % (Auto) Baso % (Auto) Lymph # (Auto) [place] # (Auto) Eos # (Auto) Baso # (Auto) Abs Immat Gran (auto) Absolute Neuts (auto) Absolute Nucleated RBC Nucleated RBC % (auto) Neutrophils % (Manual) Band Neutrophils % Lymphocytes % (Manual) Monocytes % (Manual) Metamyelocytes % Myelocytes % Promyelocytes % Abs Neuts (Manual) Lymphocytes # (Manual) Monocytes # (Manual) Metamyelocytes # Myelocytes # Promyelocytes # Hypersegmented Neuts Toxic Vacuolation Platelet Estimate Large Platelets Plt Morphology Comment RBC Morphology Polychromasia Basophilic Stippling Microcytosis Macrocytosis Fibrinogen D-Dimer High Sensitivty Anion Gap Estim Creat Clear Calc Estimated GFR POC Glucose 93 Random Glucose Calcium Magnesium Ferritin Lactate Dehydrogenase Total Creatine Kinase TSH Random Vancomycin Ur L.pneumophila Ag Mycoplasma pneumon IgG Mycoplasma pneumon IgM Microbiology Microbiology Results: Microbiology 02/15/25 20:03 Blood Culture - Final Blood - Venous Methicillin Res Staph Aureus 02/15/25 20:03 Blood Culture - Preliminary Blood - Venous No growth after 48 hours. 02/16/25 16:36 Blood Culture - Preliminary Blood - Venous No growth after 24 hours. 02/16/25 16:36 Blood Culture - Preliminary Blood - Venous No growth after 24 hours. Assessment and Plan (1) Infective endocarditis: Status: Acute (2) Bacteremia: Status: Acute (3) Acute hypoxic respiratory failure: Status: Acute (4) Right lower lobe pneumonia: Status: Acute (5) Acute renal failure (ARF): Status: Acute Plan This is a 29-year-old female with underlying lupus with lupus nephritis on 10 mg prednisone daily admitted on 02/11/2025 with dyspnea and hypoxia secondary to right-sided pneumonia with polymicrobial bacteremia requiring intubation and ventilatory support. Hospital course further complicated by acute renal failure requiring initiation of hemodialysis. Elevated by nephrology service with concern for possible lupus nephritis flare, started on high-dose systemic glucocorticoids. Extubated on 02/15/2025. Acute renal failure May be multifactorial due to KALEIGH from tubular injury due to sepsis as well as possible active lupus nephritis Received high-dose steroids, transitioned to oral prednisone 02/17 has been started on HD, received for past several days, getting HD again today; no plan for HD over the weekend, next HD day planned for Friday Nephrology following Plan for renal biopsy when clinically stable Acute respiratory failure with hypoxia due to pneumonia Status post extubation, remains on high flow tested + for parainfluenza virus. mycoplasma IgG + and IgM negative, nonspecific per ID, no need for azithromycin severe sepsis due to Polymicrobial bacteremia and possible acute infective endocarditis Blood cultures growing E coli, Klebsiella, MRSA Echo wwith concern for nondiagnostic, TV endocarditis can not be excluded Seen by Cardiology, recommends treatment for infective endocarditis Has been getting IV vancomycin, ceftriaxone; seen by ID rec IV dapto (6 weeks) and ceftriaxone (until better and then 14 days po ceftin) repeat blood cultures from 02/16 - 09/16 growing GPC, follow final culture results, if not contaminant will need repeat cultures drawn normocytic anemia due to possible Acute GI bleed ?gastritis due to high-dose steroids (reported dark stools in ICU and stool heme occult +) H/H relatively stable Continue oral PPI seen by GI - no signs of overt bleeding, no indication for EGD at this time Trend H/H Thrombocytopenia Likely due to acute viral illness/sepsis DIC, HLD ruled out platelets rebounding today hematology following - no further workup recommended sinus tachycardia ?due to pain EKG reviewed by cardiology - no further work up recommended at this time given persistent hypoxia, and tachycardia VQ scan ordered to rule out PE DVT prophylaxis-heparin discontinued due to dark stools; continue compression devices Patient requires ongoing inpatient stay for the management of respiratory failure, renal failure requiring initiation of hemodialysis and persistent anemia in the setting of immune compromise due to lupus, steroid use, need for IV antibiotics, dialysis, evaluation of multiple specialists Quality Stroke Does the patient have a stroke diagnosis?: No VTE Prior VTE?: No VTE Risk Level:: Medical - moderate - high VTE Device Contraindication: N/A - Device Ordered VTE Drug Contraindication: Treatment Not Indicated
--- NOTE | 2025-02-18 13:51 | W.PM.DNNEP ---
Subjective Subjective Date of Service: 02/18/25 This patient was seen during dialysis. Interval history: Events noted Physical Exam Vital Signs: Vital Signs: Last Vital Signs Temp 99.0 F 02/18/25 07:18 Pulse 122 H 02/18/25 07:18 Resp 19 02/18/25 07:31 BP 121/58 L 02/18/25 07:18 Pulse Ox 96 02/18/25 07:18 O2 Del Method High Flow Nasal C annula 02/18/25 07:18 O2 Flow Rate 40 02/18/25 07:18 FiO2 33 02/18/25 07:18 Oxygen Flow Rate 40 02/11/25 21:17 BMI result Body Mass Index 18.9 Const: General: no acute distress Eyes: General: appearance normal, both eyes and all related structures EOM: EOMs intact bilaterally Neck: Neck: Yes supple Resp: Auscultation: diminished lung sounds Cardio: Rate: regular rate GI: Palpation (GI): Soft to palpation Skin: General skin exam: no rashes or lesions noted Neuro: Other: Intubated General: moves all extremities Extrem: General: Yes no pedal edema Assessment & Plan Assessment and plan (1) Bacteremia: Status: Acute (2) Acute renal failure (ARF): Status: Acute (3) Severe sepsis: Status: Acute (4) Bicytopenia: Status: Acute Plan KALEIGH likely due to tubular injury from sepsis Likely has active lupus nephritis Complement level pending Has been initiated on HD HD today- No HD over the weekend if she remains stable Finishing 500 mg of Methyl pred daily for 3 days Prednisone 60 mg&Will need PCP prophylaxis Unclear she has lupus infil of lung with superimposed PNA Will hold any further immunosuppression for now given sepsis Await ID evaluation Will need renal biopsy when stable Further management is pending evolving data Time Spent With Patient Time: Total time managing care of this patient today ____ minutes. Procedures Date of Service Date of Service: 02/18/25
[2025-02-18 17:54] LABS: Complement Total CH50 17 U/mL (31-60)
[2025-02-18 18:15] LABS: Glucose, Whole Blood 110 mg/dL (60-115)
[2025-02-18] MEDS: Heparin Sodium,Porcine 5,000 UNIT/ML VIAL 5000 UNIT SUBCUT (18:15)
[2025-02-18] MEDS: DAPTOmycin 500 MG in 0.9 % Sodium Chloride 50 ML 97.96 MG IV (18:35)
[2025-02-18 18:39] LABS: Vancomycin Random 12.7 mcg/mL (15-20)
[2025-02-19] VITALS (14 sets, daily range): BP systolic 104–135; BP diastolic 52–68; PULSE 80–122; RESP 14–18; TEMP 36.2–39.1; O2SAT 95–100; BMI 19.4
[2025-02-19 00:21] LABS: Glucose, Whole Blood 85 mg/dL (60-115)
[2025-02-19] MEDS: HYDROmorphone HCl 1 MG/ML SYRINGE 1.25 MG IVPUSH ×8 (00:25→21:31)
[2025-02-19] MEDS: Acetaminophen 325 MG TABLET 650 MG PO ×2 (03:25→10:18)
[2025-02-19 06:18] LABS: Glucose, Whole Blood 89 mg/dL (60-115)
[2025-02-19] MEDS: Omeprazole 40 MG CAPSULE.DR PO ×2 (06:23→15:08)
[2025-02-19] MEDS: Heparin Sodium,Porcine 5,000 UNIT/ML VIAL 5000 UNIT SUBCUT ×2 (06:23→17:59)
--- NOTE | 2025-02-19 06:39 | PC.NURSE ---
Pt had spiked a temp of 102.4 oral overnight. Hospitalist notified and Tylenol given with improvements. Temp recheck of 98.5 oral. Pt noted to be tachycardic in the 130s when fever spiked. HR now WNL.
[2025-02-19 07:15] LABS: Basophils Absolute Auto 0.1 X10*3/uL (0.0-0.2); Basophils Percent Auto 0.2 % (0-2); Imm Gran Abs Auto 0.93 X10*3/uL (0.00-0.03); Imm Gran Pct Auto 3.2 % (0.0-0.4); Lymphocytes Absolute Auto 1.6 X10*3/uL (1.2-4.9); Lymphocytes Percent Auto 5.5 % (20-40); MANUAL DIFF FLAG SCAN; Mean Corpuscular Volume 93.5 fL (80.0-98.0); Mean Platelet Volume 11.9 fL (9.4-12.3); Monocytes Absolute Auto 0.9 X10*3/uL (0.1-1.2); Monocytes Percent Auto 3.2 % (2-11); NRBC Pct Auto 0.5 /100WBC (0.0-0.2); Neutrophils Absolute Auto 25.6 x10*3/uL (2.0-8.3); Neutrophils Percent Auto 87.9 % (45-73); Platelet Count 149 X10*3/uL (160-400); Red Blood Count 2.17 X10*6/uL (4.20-5.50); Red Cell Distribution Width 16.6 % (11.0-16.0); SCAN SMEAR FLAG 1; White Blood Count 29.1 X10*3/uL (4.8-10.8)
[2025-02-19 07:21] LABS: Blood Urea Nitrogen 34 mg/dL (9-16); Calcium 7.9 mg/dL (8.4-10.2); Estimated Glomerular Filt Rate 14; Glucose Random 83 mg/dL (60-115)
[2025-02-19 07:30] LABS: Hemoglobin 6.5 g/dl (12.0-16.0)
[2025-02-19 07:31] LABS: Hematocrit 20.3 % (37.0-47.0)
[2025-02-19 07:35] LABS: Anion Gap 16 (12-20); Carbon Dioxide 23 mmol/L (22-29); Chloride 95 mmol/L (96-108); Potassium 2.9 mmol/L (3.3-5.1); Sodium 131 mmol/L (135-145)
[2025-02-19] MEDS: Potassium Chloride ER 20 MEQ TAB.ER.PRT 40 MEQ PO (08:11)
[2025-02-19] MEDS: guaiFEN/Codeine SF 200/20/10ML 10 ML LIQUID 5 ML PO ×2 (08:21→15:08)
[2025-02-19] MEDS: predniSONE 20 MG TABLET 60 MG PO (08:21)
[2025-02-19] MEDS: oxyCODONE HCl Immed Release 5 MG TABLET PO (08:21)
[2025-02-19 08:30] LABS: SLIDE REVIEW VERIFIED
[2025-02-19] MEDS: 0.9 % Sodium Chloride Flush 3 ML SYRINGE IVFLUSH ×3 (09:57→21:33)
[2025-02-19] MEDS: cefTRIAXone sodium 2 GM VIAL IVPUSH (09:58)
--- NOTE | 2025-02-19 10:43 | HO.PM.IMPN ---
Subjective Subjective Date of Service: 02/19/25 Interval History: follow up for respiratory failure, bacteremia, endocarditis, renal failure widespread body pain cough Review of Systems Review of Systems: Yes all other systems are reviewed and are negative Constitutional Constitutional: Denies chills and Denies fever(s) Cardiovascular Cardiovascular: Denies chest pain and Denies palpitations Respiratory Respiratory: Reports cough Endocrine Endocrine: Denies palpitations Physical Exam Vital Signs: Vital Signs: Last Vital Signs Temp 100.0 F 02/19/25 10:08 Pulse 114 H 02/19/25 10:08 Resp 16 02/19/25 10:08 BP 135/60 02/19/25 10:08 Pulse Ox 98 02/19/25 07:12 O2 Del Method Nasal Cannula 02/19/25 07:12 O2 Flow Rate 5 02/19/25 07:12 FiO2 33 02/18/25 07:18 Oxygen Flow Rate 40 02/11/25 21:17 BMI result Body Mass Index 19.4 Appearing in no acute distress lung sounds are clear to auscultation heart regular rate rhythm, clear S1, S2 positive bowel sounds, abdomen is soft, nontender neuro patient is alert x3, no focal deficits Objective Data Active Medications Acetaminophen (Acetaminophen 325 Mg Tablet) 650 mg PO Q6H PRN PRN Reason: Fever Last Admin: 02/19/25 10:18 Dose: 650 mg Documented By: TIFFANY Albuterol/Ipratropium (Albuterol/Iprat 2.5/0.5mg 3 Ml Ampul.Neb) 3 ml INHALE RQ6H WHILE AWAKE PRN PRN Reason: shortness of breath/wheeze Ceftriaxone Sodium (Ceftriaxone Sodium 2 Gm Vial) 2 gm IVPUSH Q24H [facility] Last Admin: 02/19/25 09:58 Dose: 2 gm Documented By: TIFFANY Guaifenesin/Codeine Phosphate (Guaifen/Codeine Sf 200/20/10ml 10 Ml Liquid) 5 ml PO Q6H PRN PRN Reason: Cough Last Admin: 02/19/25 08:21 Dose: 5 ml Documented By: TIFFANY Heparin Sodium (Porcine) (Heparin Sodium,Porcine 5,000 Unit/Ml Vial) 5,000 unit SUBCUT Q12H [facility] Last Admin: 02/19/25 06:23 Dose: 5,000 unit Documented By: HO.N-DESSK Hydromorphone HCl (Hydromorphone Hcl 1 Mg/Ml Syringe) 1.25 mg IVPUSH Q3H PRN; Protocol PRN Reason: Pain, Severe (Pain Scale 7-10) Last Admin: 02/19/25 09:42 Dose: 1.25 mg Documented By: TIFFANY Daptomycin 500 mg/ Sodium (Chloride) 60 mls @ 97.959 mls/hr IV Fr@1800 [facility] Last Infusion: 02/18/25 21:26 Dose: Infused Documented By: CHERYL Daptomycin 340 mg/ Sodium (Chloride) 56.8 mls @ 100 mls/hr IV MoWe@1800 [facility] Loperamide HCl (Loperamide Hcl 2 Mg Capsule) 4 mg PO Q6H PRN PRN Reason: Diarrhea Naloxone HCl (Naloxone Hcl 0.4 Mg/Ml Vial) 0.2 mg IVPUSH Q2M PRN PRN Reason: Excessive sedation or RR < 8 Omeprazole (Omeprazole 40 Mg Capsule.) 40 mg PO BID@0630,1630 [facility] Last Admin: 02/19/25 06:23 Dose: 40 mg Documented By: CHERYL Oxycodone HCl (Oxycodone Hcl Immed Release 5 Mg Tablet) 5 mg PO Q6H PRN PRN Reason: Pain, Moderate(Pain Scale 4-6) Last Admin: 02/19/25 08:21 Dose: 5 mg Documented By: TIFFANY Prednisone (Prednisone 20 Mg Tablet) 60 mg PO DAILY [facility] Last Admin: 02/19/25 08:21 Dose: 60 mg Documented By: TIFFANY Sodium Chloride (0.9 % Sodium Chloride Flush 3 Ml Syringe) 3 ml IVFLUSH QSHIFT [facility] Last Admin: 02/19/25 09:57 Dose: 3 ml Documented By: TIFFANY Labs 02/19/25 06:27 02/19/25 06:27 Labs: Laboratory Results - last 24 hr 02/11/25 02/18/25 02/18/25 19:41 06:53 11:28 MCV MCH MCHC RDW Plt Count 125 L D MPV Immature Gran % (Auto) Neut % (Auto) Lymph % (Auto) Elk % (Auto) Eos % (Auto) Baso % (Auto) Lymph # (Auto) Elk # (Auto) Eos # (Auto) Baso # (Auto) Abs Immat Gran (auto) Absolute Neuts (auto) Absolute Nucleated RBC Nucleated RBC % (auto) Abs Neuts (Manual) 23.5 H Lymphocytes # (Manual) 2.8 Monocytes # (Manual) 0.6 Metamyelocytes # 0.3 Myelocytes # 0.3 Promyelocytes # 0.3 Smear Tech's Comments Anion Gap Estim Creat Clear Calc Estimated GFR POC Glucose 93 Random Glucose Calcium Hold Yellow Top Random Vancomycin Tot Complement (CH50) 17 L Blood Type Antibody Screen Crossmatch 02/18/25 02/18/25 02/19/25 18:10 18:11 00:18 MCV MCH MCHC RDW Plt Count MPV Immature Gran % (Auto) Neut % (Auto) Lymph % (Auto) Elk % (Auto) Eos % (Auto) Baso % (Auto) Lymph # (Auto) Elk # (Auto) Eos # (Auto) Baso # (Auto) Abs Immat Gran (auto) Absolute Neuts (auto) Absolute Nucleated RBC Nucleated RBC % (auto) Abs Neuts (Manual) Lymphocytes # (Manual) Monocytes # (Manual) Metamyelocytes # Myelocytes # Promyelocytes # Smear Tech's Comments Anion Gap Estim Creat Clear Calc Estimated GFR POC Glucose 110 85 Random Glucose Calcium Hold Yellow Top Random Vancomycin 12.7 L Tot Complement (CH50) Blood Type Antibody Screen Crossmatch 02/19/25 02/19/25 02/19/25 06:13 06:27 07:59 MCV 93.5 MCH 30.0 MCHC 32.0 RDW 16.6 H Plt Count 149 L MPV 11.9 Immature Gran % (Auto) 3.2 H Neut % (Auto) 87.9 H Lymph % (Auto) 5.5 L Elk % (Auto) 3.2 Eos % (Auto) 0.0 Baso % (Auto) 0.2 Lymph # (Auto) 1.6 Elk # (Auto) 0.9 Eos # (Auto) 0.0 Baso # (Auto) 0.1 Abs Immat Gran (auto) 0.93 H Absolute Neuts (auto) 25.6 H Absolute Nucleated RBC 0.140 H Nucleated RBC % (auto) 0.5 H Abs Neuts (Manual) Lymphocytes # (Manual) Monocytes # (Manual) Metamyelocytes # Myelocytes # Promyelocytes # Smear Tech's Comments VERIFIED Anion Gap 16 Estim Creat Clear Calc 20.0 Estimated GFR 14 POC Glucose 89 Random Glucose 83 Calcium 7.9 L Hold Yellow Top See Note Random Vancomycin Tot Complement (CH50) Blood Type A Positive Antibody Screen NEGATIVE Crossmatch See Detail Microbiology Microbiology Results: Microbiology 02/16/25 16:36 Blood Culture - Final Blood - Venous Methicillin Res Staph Aureus 02/16/25 16:36 Blood Culture - Preliminary Blood - Venous No growth after 48 hours. 02/15/25 20:03 Blood Culture - Final Blood - Venous Methicillin Res Staph Aureus Assessment and Plan (1) Infective endocarditis: Status: Acute (2) Bacteremia: Status: Acute (3) Acute hypoxic respiratory failure: Status: Acute (4) Right lower lobe pneumonia: Status: Acute (5) Acute renal failure (ARF): Status: Acute Plan 29-year-old female with underlying lupus with lupus nephritis on 10 mg prednisone daily admitted on 02/11/2025 with dyspnea and hypoxia secondary to right-sided pneumonia with polymicrobial bacteremia requiring intubation and ventilatory support. Hospital course further complicated by acute renal failure requiring initiation of hemodialysis. Elevated by nephrology service with concern for possible lupus nephritis flare, started on high-dose systemic glucocorticoids. Extubated on 02/15/2025. Normocytic anemia due to possible Acute GI bleed ?gastritis due to high-dose steroids (reported dark stools in ICU and stool heme occult +) Continue oral PPI seen by GI - no signs of overt bleeding, no indication for EGD at this time HH today 6.5/20.3 tx 2 units PRBC Hypokalemia Oral potassium repeat this afternoon Sinus tachycardia EKG reviewed by cardiology>no further work up recommended at this time given persistent hypoxia, and tachycardia VQ scan ordered to rule out PE> possibility of pulmonary embolism can not be excluded Discussed with pulmonology, check venous Doppler ultrasound to lower extremities, if positive discussed with vascular surgeon regarding filter Acute renal failure May be multifactorial due to [place] from tubular injury due to sepsis as well as possible active lupus nephritis Received high-dose steroids, transitioned to oral prednisone 02/17 has been started on HD, received for past several days, getting HD again today; no plan for HD over the weekend, next HD day planned for Friday Nephrology following Plan for renal biopsy when clinically stable Acute respiratory failure with hypoxia due to pneumonia Status post extubation, remains on high flow tested + for parainfluenza virus. mycoplasma IgG + and IgM negative, nonspecific per ID, no need for azithromycin Currently on daptomycin Severe sepsis due to Polymicrobial bacteremia and possible acute infective endocarditis . Sepsis resolved Blood cultures growing E coli, Klebsiella, MRSA Echo with concern for nondiagnostic, TV endocarditis can not be excluded Seen by Cardiology, recommends treatment for infective endocarditis> daptomycin Has been getting IV vancomycin, ceftriaxone; seen by ID rec IV dapto (6 weeks) and ceftriaxone (until better and then 14 days po ceftin) repeat blood cultures from 02/16 09/16>MRSA Thrombocytopenia Likely due to acute viral illness/sepsis DIC, HLD ruled out platelets rebounding today hematology following - no further workup recommended Quality Stroke Does the patient have a stroke diagnosis?: No VTE Prior VTE?: No VTE Risk Level:: Medical - moderate - high VTE Device Contraindication: N/A - Device Ordered VTE Drug Contraindication: Treatment Not Indicated
--- NOTE | 2025-02-19 11:10 | PM.HEMONCPN ---
Medical Summary - Medical Summary Date of Service: 02/19/25 Primary Care Provider: Vic Pompa, DO Nuclear Medical Technologist Utilized?: No - Welsh Speaking Interval History Interval history: Trey Canales is a 29 year old female with past medical history significant for SLE, lupus nephritis, hypertension, anemia who presented to [facility] [place] on 02/11/2025 with complaints of dyspnea, cough, fever, poor oral intake, nausea, vomiting and diarrhea. She was admitted to ICU for severe sepsis from right lobe pneumonia. Patient was also found to be in acute renal failure with a serum creatinine of 11.9. She was intubated briefly for acute respiratory failure on extubated on 02/15/2025. She was started on hemodialysis for acute renal failure and started on high-dose systemic glucocorticoids for possible lupus nephritis flare. She was found to have positive blood cultures for E coli, Klebsiella and MRSA. She was started on broad-spectrum antibiotics. She has developed gradually worsening anemia and thrombocytopenia. Review of Systems - Constitutional Reports weight loss - Eyes Reports sensitivity to light - ENT Reports system reviewed and no additional complaints, except as documented - Cardiovascular Reports excessive sweating, Reports fast heart rate - Respiratory Reports dyspnea on exertion - Gastrointestinal Reports feeling full early - Genitourinary Reports urinary incontinence - Musculoskeletal Reports numbness - Neurologic Reports system reviewed and no additional complaints, except as documented PMFSH Medical History: Medical History (Last Reviewed 02/18/25 @ 12:30 by Martha Shipman MD) Abnormal uterine bleeding Acute on chronic anemia Anemia Anxiety Depression Essential hypertension Fibromyalgia Hypertensive urgency Lupus Lupus nephritis Pericardial effusion Rash Family History: Family History (Last Reviewed 02/18/25 @ 12:30 by Martha Shipman MD) Mother Hypertension Type 2 diabetes mellitus Lupus Arthritis Maternal Grandmother Hypertension Type 2 diabetes mellitus Arthritis Family history: reviewed and not pertinent Surgical History: Surgical History (Last Reviewed 02/18/25 @ 12:30 by Martha Shipman MD) Hx of hernia repair Social History: Social History (Last Reviewed 02/18/25 @ 12:30 by Martha Shipman MD) Living Situation History: Household Members: Spouse Household Members: Children Housing: Apartment Do you presently have visiting nurse or other home services: No Alcohol History Details: 1. How often do you have a drink containing alcohol?: a. Never AUDIT-C Alcohol total score: 0 Currently Displaying Signs/Symptoms of Alcohol Withdrawal: No Tobacco History: Patient Tobacco Use Status: Current everyday Tobacco Tobacco use type: Cigarette Cigarette Packs Per Day: 0.5 Years Smoked: 7 Smoked in Last 30 Days: Yes Substance Use History: Use of substances other than those prescribed or required for medical reasons: Yes Substance Use Type: Marijuana Currently Displaying Signs/Symptoms of Drug Intoxication Withdrawal: No Domestic Abuse History: Have you been hit, kicked, punched, or otherwise hurt by someone within the past year? If so, by whom?: No Do you feel safe in your current relationship?: Yes Is there a partner from a previous relationship who is making you feel unsafe now?: No Are you made to feel afraid or neglected: No Advance Directives: Advance Directives: Yes Advance Directives on File: Yes Advance Directives Date on File: 04/03/22 Homicidal Assessment: Do you have a plan to hurt others: No Plan Nutrition Assessment: Recently lost weight without trying: No Patient : No : No Poor oral hygiene: No Occupation Assessmet: service: No Current occupational status: disabled Home Medications and Allergies Current Medications: Current Medications Acetaminophen (Acetaminophen 325 Mg Tablet) 650 mg PO Q6H PRN PRN Reason: Fever Last Admin: 02/19/25 10:18 Dose: 650 mg Albuterol/Ipratropium (Albuterol/Iprat 2.5/0.5mg 3 Ml Ampul.Neb) 3 ml INHALE RQ6H WHILE AWAKE PRN PRN Reason: shortness of breath/wheeze Ceftriaxone Sodium (Ceftriaxone Sodium 2 Gm Vial) 2 gm IVPUSH Q24H [facility] Last Admin: 02/19/25 09:58 Dose: 2 gm Guaifenesin/Codeine Phosphate (Guaifen/Codeine Sf 200/20/10ml 10 Ml Liquid) 5 ml PO Q6H PRN PRN Reason: Cough Last Admin: 02/19/25 08:21 Dose: 5 ml Heparin Sodium (Porcine) (Heparin Sodium,Porcine 5,000 Unit/Ml Vial) 5,000 unit SUBCUT Q12H [facility] Last Admin: 02/19/25 06:23 Dose: 5,000 unit Hydromorphone HCl (Hydromorphone Hcl 1 Mg/Ml Syringe) 1.25 mg IVPUSH Q3H PRN; Protocol PRN Reason: Pain, Severe (Pain Scale 7-10) Last Admin: 02/19/25 09:42 Dose: 1.25 mg Daptomycin 500 mg/ Sodium (Chloride) 60 mls @ 97.959 mls/hr IV Fr@1800 [facility] Last Infusion: 02/18/25 21:26 Dose: Infused Daptomycin 340 mg/ Sodium (Chloride) 56.8 mls @ 100 mls/hr IV MoWe@1800 [facility] Loperamide HCl (Loperamide Hcl 2 Mg Capsule) 4 mg PO Q6H PRN PRN Reason: Diarrhea Naloxone HCl (Naloxone Hcl 0.4 Mg/Ml Vial) 0.2 mg IVPUSH Q2M PRN PRN Reason: Excessive sedation or RR < 8 Omeprazole (Omeprazole 40 Mg Capsule.Dr) 40 mg PO BID@0630,1630 [facility] Last Admin: 02/19/25 06:23 Dose: 40 mg Oxycodone HCl (Oxycodone Hcl Immed Release 5 Mg Tablet) 5 mg PO Q6H PRN PRN Reason: Pain, Moderate(Pain Scale 4-6) Last Admin: 02/19/25 08:21 Dose: 5 mg Prednisone (Prednisone 20 Mg Tablet) 60 mg PO DAILY [facility] Last Admin: 02/19/25 08:21 Dose: 60 mg Sodium Chloride (0.9 % Sodium Chloride Flush 3 Ml Syringe) 3 ml IVFLUSH QSHIFT [facility] Last Admin: 02/19/25 09:57 Dose: 3 ml Allergies Allergy/AdvReac Type Severity Reaction Status Date / Time mycophenolate mofetil AdvReac Intermediate GI upset Verified 02/11/25 16:49 gabapentin AdvReac Unknown Hives Verified 02/11/25 16:49 Exam Vital signs: Vital Signs Temp 100.0 F 02/19/25 10:08 Pulse 114 H 02/19/25 10:08 Resp 16 02/19/25 10:08 BP 135/60 02/19/25 10:08 Pulse Ox 98 02/19/25 07:12 O2 Del Method Nasal Cannula 02/19/25 07:12 O2 Flow Rate 5 02/19/25 07:12 FiO2 33 02/18/25 07:18 Intake & Output 02/18/25 02/19/25 02/19/25 18:59 06:59 18:59 Intake Total 750 / 2570 1820 / 2570 0 / 0 Output Total 0 / 0 Balance 750 / 2570 1820 / 2570 0 / 0 Urine Output (Average ml/kg/hr) 0.00 0.00 Intake: Intake, Oral Amount 500 / 2260 1760 / 2260 Intake (Blood Product) Amount 0 / 0 Red Blood Cells (E0336) Unit 0 / 0 [id number] Intake, IV Amount 250 / 310 60 / 310 Azithromycin 500 mg In 0.9 % 250 / 250 Sodium Chloride 250 ml @ 125 mls/hr IV ONCE ONE Rx#: [id number] DAPTOmycin 500 mg In 0.9 % 60 / 60 Sodium Chloride 50 ml @ 97.959 mls/hr IV Fr@1800 [facility] Rx#: [id number] Output: Output, Urine Amount 0 / 0 Output, Stool Amount 0 / 0 Other: Breakfast % Eaten 0% Lunch % Eaten 0% Eating (Feeding) Ability Set Up only Number of Incontinent Voids 0 Number of Unmeasured Voids 0 Number of Bowel Movements 0 Last Bowel Movement 02/17/25 02/17/25 Weight 57.8 kg [place] Weight in Grams [id number] Weight 57.8 kg BMI result Body Mass Index 19.4 - Constitutional Present: no acute distress, chronically ill appearing - Routine HEENT Exam Head: Present: normal inspection - Routine Neck Exam Present: full ROM - Routine Respiratory Exam Present: decreased breath sounds, prolonged expiratory phase. Absent: stridor, wheezes - Routine Cardiovascular Exam Cardiovascular: Present: RRR, S1, S2 - Routine Extremities Exam Absent: pedal edema - Routine Skin Exam Present: intact - Routine Neurological Exam Present: alert, oriented X3 - Detailed Neurological Exam: Coma Scale Eye Opening: Spontaneous (4) Data - Labs CBC & Chem 7: 02/19/25 06:27 02/19/25 06:27 Labs: Laboratory Last Values WBC 29.1 X10*3/uL (4.8-10.8) H 02/19/25 06:27 RBC 2.17 X10*6/uL (4.20-5.50) L 02/19/25 06:27 Hgb 6.5 g/dl (12.0-16.0) L* 02/19/25 06:27 Hct 20.3 % (37.0-47.0) L* 02/19/25 06:27 MCV 93.5 fL (80.0-98.0) 02/19/25 06: MCH 30.0 pg (27.0-33.0) 02/19/25 06: MCHC 32.0 g/dl (31.0-35.0) 02/19/25 06: RDW 16.6 % (11.0-16.0) H 02/19/25 06:27 Plt Count 149 X10*3/uL (160-400) L 02/19/25 06: MPV 11.9 fL (9.4-12.3) 02/19/25 06:27 Immature Gran % (Auto) 3.2 % (0.0-0.4) H 02/19/25 06: Neut % (Auto) 87.9 % (45-73) H 02/19/25 06: Lymph % (Auto) 5.5 % (20-40) L 02/19/25 06: Hardy % (Auto) 3.2 % (2-11) 02/19/25 06: Eos % (Auto) 0.0 % (0-4) 02/19/25 06: Baso % (Auto) 0.2 % (0-2) 02/19/25 06: Lymph # (Auto) 1.6 X10*3/uL (1.2-4.9) 02/19/25 06: Hardy # (Auto) 0.9 X10*3/uL (0.1-1.2) 02/19/25 06: Eos # (Auto) 0.0 X10*3/uL (0.0-0.4) 02/19/25 06: Baso # (Auto) 0.1 X10*3/uL (0.0-0.2) 02/19/25 06: Abs Immat Gran (auto) 0.93 X10*3/uL (0.00-0.03) H 02/19/25 06: Absolute Neuts (auto) 25.6 x10*3/uL (2.0-8.3) H 02/19/25 06:27 Absolute Nucleated RBC 0.140 X10*3/uL (0.0-0.012) H 02/19/25 06:27 Nucleated RBC % (auto) 0.5 /100WBC (0.0-0.2) H 02/19/25 06:27 Neutrophils % (Manual) 81 % (45-73) H 02/18/25 06:53 Band Neutrophils % 4 % (3-5) 02/18/25 06:53 Lymphocytes % (Manual) 10 % (20-40) L 02/18/25 06:53 Atypical Lymphs % (Man) 1 % (0-6) 02/15/25 18:30 Monocytes % (Manual) 2 % (2-11) 02/18/25 06:53 Metamyelocytes % 1 % 02/18/25 06:53 Myelocytes % 1 % 02/18/25 06:53 Promyelocytes % 1 % 02/18/25 06:53 Blast Cells % (Manual) 1 % 02/11/25 17:44 Abs Neuts (Manual) 23.5 X10*3/uL (2.0-8.3) H 02/18/25 06:53 Lymphocytes # (Manual) 2.8 X10*3/uL (1.2-4.9) 02/18/25 06:53 Atyp Lymphs # (Manual) 0.4 x10*3/uL 02/15/25 18:30 Monocytes # (Manual) 0.6 X10*3/uL (0.1-1.2) 02/18/25 06:53 Metamyelocytes # 0.3 X10*3/uL 02/18/25 06:53 Myelocytes # 0.3 X10*/uL 02/18/25 06:53 Promyelocytes # 0.3 X10*3/uL 02/18/25 06:53 Blast Cells # 0.2 X10*3/uL 02/11/25 17:44 Nucleated RBCs 2 /100WBC (0-0) H 02/16/25 05:02 Hypersegmented Neuts PRESENT 02/18/25 06:53 Smudge Cells PRESENT 02/15/25 05:32 Toxic Granulation PRESENT 02/17/25 06:19 Toxic Vacuolation PRESENT 02/18/25 06:53 Dohle Bodies PRESENT 02/16/25 05:02 WBC Morphology Comment SEE NOTE 02/15/25 18:30 Platelet Estimate SLIGHTLY DECREASED (NORMAL) 02/18/25 06:53 Large Platelets PRESENT 02/18/25 06:53 Giant Platelets PRESENT 02/11/25 17:44 Plt Morphology Comment NOTED 02/18/25 06:53 RBC Morphology NOTED 02/18/25 06:53 Polychromasia 1+ (0-2) /[facility] 02/18/25 06:53 Hypochromasia 1+ (5-14) /[facility] 02/17/25 06:19 Basophilic Stippling 1+ (0-2) /OI 02/18/25 06:53 Microcytosis 2+ (15-30) /[facility] 02/18/25 06:53 Macrocytosis 2+ (15-30) /[facility] 02/18/25 06:53 Spherocytes 1+ (0-2) /[facility] 02/16/25 05:02 Target Cells 1+ (5-14) /[facility] 02/16/25 05:02 Tear Drop Cells 1+ (0-2) /[facility] 02/15/25 18:30 Ovalocytes 1+ (5-14) /[facility] 02/16/25 05:02 Stomatocytes 1+ (5-14) /[facility] 02/17/25 06:19 Johnson-Emery Bodies PRESENT 02/17/25 06:19 Bambi Cells 1+ (0-2) /[facility] 02/15/25 05:32 Acanthocytes (Spur) 2+ (3-5) /[facility] 02/12/25 05:01 Schistocytes 1+ (0-2) /[facility] 02/13/25 19:16 Smear Tech's Comments VERIFIED 02/19/25 06:27 Smear Path Review SEE NOTE 02/15/25 18:30 ESR > 140 MM/HR (0-20) H 02/11/25 17:44 PT 16.2 SEC (10.9-12.4) H 02/12/25 05:01 INR 1.4 (0.9-1.1) H 02/12/25 05:01 Fibrinogen 534 MG/DL (259-690) 02/17/25 14:57 D-Dimer High Sensitivty 2135 NG/ML 02/17/25 14:57 VBG pH 7.50 (7.32-7.43) H 02/16/25 05:14 VBG pCO2 30 mmHg 02/16/25 05:14 VBG pO2 74 mmHg 02/16/25 05:14 VBG HCO3 23 mmol/L (22-26) 02/16/25 05:14 VBG O2 Saturation TNP 02/16/25 05:14 VBG Base Excess 1.0 mmol/L 02/16/25 05:14 Sodium 131 mmol/L (135-145) L 02/19/25 06:27 Potassium 2.9 mmol/L (3.3-5.1) L* 02/19/25 06:27 Chloride 95 mmol/L (96-108) L 02/19/25 06:27 Carbon Dioxide 23 mmol/L (22-29) 02/19/25 06:27 Anion Gap 16 (12-20) 02/19/25 06:27 BUN 34 mg/dL (9-16) H 02/19/25 06:27 Creatinine 3.72 mg/dL (0.5-1.4) H 02/19/25 06:27 Estim Creat Clear Calc 20.0 02/19/25 06:27 Estimated GFR 14 02/19/25 06:27 POC Glucose 89 mg/dL (60-115) 02/19/25 06:13 Random Glucose 83 mg/dL (60-115) 02/19/25 06:27 Haptoglobin 176 mg/dL (35-250) 02/17/25 06:19 Lactic Acid 1.6 mmol/L (0.5-2.0) 02/16/25 16:36 Lactic Acid F/U @ 2Hr 3.9 mmol/L (0.5-2.0) H* 02/11/25 19:41 Lactic Acid F/U @ 4Hr 3.2 mmol/L (0.5-2.0) H* 02/11/25 21:59 Calcium 7.9 mg/dL (8.4-10.2) L 02/19/25 06:27 Phosphorus 8.5 mg/dL (2.7-4.5) H 02/17/25 06:19 Magnesium 1.7 mg/dL (1.6-2.6) 02/18/25 06:53 Ferritin 2291 ng/mL (10-122) H 02/17/25 06:19 Total Bilirubin 0.5 mg/dL (0.0-1.0) 02/17/25 06:19 Direct Bilirubin 0.4 mg/dL (0.0-0.5) 02/17/25 06:19 AST 32 U/L (5-31) H 02/17/25 06:19 ALT 20 U/L (0-31) 02/17/25 06:19 Alkaline Phosphatase 87 U/L (39-117) 02/17/25 06:19 Lactate Dehydrogenase 455 U/L (122-220) H 02/17/25 06:19 Total Creatine Kinase 41 U/L (26-140) 02/18/25 06:53 Troponin I High Sens 7.5 ng/L (<3.5-17.0) 02/11/25 17:44 C-Reactive Protein 32.07 mg/dL (< or = 0.50) H 02/11/25 19:41 B-Natriuretic Peptide 364 pg/mL (<100) H 02/11/25 17:44 Total Protein 6.9 g/dL (6.5-8.0) 02/17/25 06:19 Albumin 3.1 g/dL (3.5-5.0) L 02/17/25 06:19 Triglycerides 352 mg/dL (<150) H 02/17/25 06:19 Lipase < 4 U/L (8-78) L 02/11/25 17:44 Procalcitonin > 100.00 ng/mL 02/11/25 17:44 TSH 1.95 uIU/mL (0.32-4.0) 02/18/25 06:53 Beta HCG, Quant Cancelled 02/11/25 21:59 PTH Intact 439.5 pg/mL (8.7-77.1) H 02/17/25 06:19 Hold Yellow Top See Note 02/19/25 06:27 Urine Color Dark Yellow 02/11/25 20:51 Urine Appearance Cloudy 02/11/25 20:51 Urine pH 5.0 (5.0-9.0) 02/11/25 20:51 Ur Specific [place] >= 1.030 (1.005-1.025) H 02/11/25 20:51 Urine Protein >=1000 (4+) mg/dL (Neg-Trace) H 02/11/25 20:51 Urine Glucose (UA) Negative mg/dL (Negative) 02/11/25 20:51 Urine Ketones Trace mg/dL (Negative) 02/11/25 20:51 Urine Blood Trace (Negative) H 02/11/25 20:51 Urine Nitrite Negative (Negative) 02/11/25 20:51 Ur Leukocyte Esterase Trace (Negative) H 02/11/25 20:51 Urine RBC 3-5 /HPF (0-2) H 02/11/25 20:51 Urine WBC 0-5 /HPF (0-5) 02/11/25 20:51 Ur Squamous Epith Cells 3-5 /HPF (0-2) 02/11/25 20:51 Urine Bacteria Trace (None Seen) 02/11/25 20:51 Hyaline Casts >20 /LPF (0-2) 02/11/25 20:51 Nasal Screen MRSA (PCR) POSITIVE (Negative) A 02/11/25 20:37 Nasal S. aureus Screen POSITIVE (Negative) A 02/11/25 20:37 Nasal MRSA/S.aureus Interp SEE NOTE 02/11/25 20:37 Stool Occult Blood POSITIVE (NEGATIVE) 02/15/25 15:30 Random Vancomycin 12.7 mcg/mL (15-20) L 02/18/25 18:11 Urine Opiates Screen POSITIVE (Not Detect) H 02/11/25 20:51 Ur Buprenorphine Scrn Not Detected ng/mL (Not Detect) 02/11/25 20:51 Ur Oxycodone Screen Not Detected ng/mL (Not Detect) 02/11/25 20:51 Urine Methadone Screen Not Detected ng/mL (Not Detect) 02/11/25 20:51 Urine Fentanyl Screen POSITIVE (Not Detect) H 02/11/25 20:51 Ur Barbiturates Screen Not Detected (Not Detect) 02/11/25 20:51 Ur Phencyclidine Scrn Not Detected (Not Detect) 02/11/25 20:51 Ur Amphetamines Screen Not Detected (Not Detect) 02/11/25 20:51 U Benzodiazepines Scrn Not Detected (Not Detect) 02/11/25 20:51 Urine Cocaine Screen Not Detected (Not Detect) 02/11/25 20:51 U Marijuana (THC) Screen POSITIVE (Not Detect) H 02/11/25 20:51 Double Strand DNA Ab 24 IU/mL H 02/11/25 20:37 Complement C3 91 mg/dL (83-193) 02/11/25 19:41 Complement C4 7 mg/dL (15-57) L 02/11/25 19:41 Tot Complement (CH50) 17 U/mL (31-60) L 02/11/25 19:41 Respiratory Panel Rasheed See Note 02/11/25 20:37 Adenovirus (Rapid PCR) Not Detected (Not Detect.) 02/11/25 20: B.pert (TEM-PCR) Not Detected (Not Detect.) 02/11/25 20: B.parapertussis DNA PCR Not Detected (Not Detect.) 02/11/25 20: C. pneumoniae DNA (PCR) Not Detected (Not Detect.) 02/11/25 20: C. difficile Tox B Gene NEGATIVE (Negative) 02/15/25 23:14 Coronavirus OC43 (PCR) Not Detected (Not Detect.) 02/11/25 20: Coronavirus HKU1 (PCR) Not Detected (Not Detect.) 02/11/25 20: Coronavirus 229E (PCR) Not Detected (Not Detect.) 02/11/25 20: Coronavirus NL63 (PCR) Not Detected (Not Detect.) 02/11/25 20:37 Hep Bs Antigen Negative (Negative) 02/13/25 12:59 Hep Bs Antibody REACTIVE (Nonreactive) 02/13/25 12:59 Hep B Core Total Ab Nonreactive (Nonreactive) 02/13/25 12:59 Human Metapneumovir PCR Not Detected (Not Detect.) 02/11/25 20:37 Influenza Type A (ANNA) Cancelled 02/11/25 20:37 Influenza A (RT-PCR) Not Detected (Not Detect.) 02/11/25 20: Influenza A (H1) PCR Not Detected (Not Detect.) 02/11/25 20:37 Influ A (H1/09) PCR Not Detected (Not Detect.) 02/11/25 20: Influenza A (H3) PCR Not Detected (Not Detect.) 02/11/25 20:37 Influenza Type A (PCR) NEGATIVE (Negative) 02/11/25 17:44 Influenza Type B (ANNA) Cancelled 02/11/25 20: Influenza B (RT-PCR) Not Detected (Not Detect.) 02/11/25 20:37 Influenza Type B (PCR) NEGATIVE (Negative) 02/11/25 17:44 Influenza A & B Note Cancelled 02/11/25 20:37 Ur L.pneumophila Ag Not Detected (Not Detected) 02/11/25 20:51 Mycoplasma pneumon IgG 1.41 (<=0.90) H 02/11/25 20:37 Mycoplasma pneumon IgM 218 U/mL (<770) 02/11/25 20:37 M. pneumoniae (PCR) Not Detected (Not Detect.) 02/11/25 20:37 Parainfluenza 1 (PCR) Not Detected (Not Detect.) 02/11/25 20:37 Parainfluenza 2 (PCR) Not Detected (Not Detect.) 02/11/25 20:37 Parainfluenza 3 (PCR) Detected (Not Detect.) A 02/11/25 20:37 Parainfluenza 4 (PCR) Not Detected (Not Detect.) 02/11/25 20:37 RSV (PCR) Not Detected (Not Detect.) 02/11/25 20:37 RSV RNA Qual (PCR) NEGATIVE (Negative) 02/11/25 17:44 Entero/Rhino (PCR) Not Detected (Not Detect.) 02/11/25 20:37 SARS-CoV-2 RNA (RT-PCR) Not Detected (Not Detect.) 02/11/25 20:37 Blood Type A Positive 02/19/25 07:59 Antibody Screen NEGATIVE 02/19/25 07:59 Crossmatch See Detail 02/19/25 07:59 - Imaging Radiologist's impression: ITS Impressions Chest X-Ray 02/18/25 14:48 IMPRESSION: 1. Right central venous catheter in place, tip at the junction of the brachiocephalic veins within the superior SVC. 2. Extensive consolidative opacity throughout the right upper lung, with lesser consolidation right lower lung. Findings are worsening. Electronically signed by: Dutch Gutierrez MD 02/18/2025 04:02 PM EDT RP Assessment and Plan Patient Active problem list reviewed?: Yes (1) Bicytopenia Status: Acute Assessment and plan: 1. This is a 29-year-old woman with systemic lupus erythematosus, lupus nephritis who is currently admitted for sepsis, acute respiratory failure, bacterial pneumonia and acute renal failure necessitating hemodialysis. She was extubated on 02/15/25. She was found to have E coli and Klebsiella in blood. She has parainfluenza 3, MRSA which is now cleared. She is undergoing hemodialysis for acute lupus nephritis flare. She is on systemic steroids with prednisone. She developed anemia and thrombocytopenia and concern was raised for HLH or hemophagocytic lymphohistiocytosis. She does not meet any criteria for HLH. Her anemia is secondary to renal failure, platelets are improving. She does not have unexplained fever, lymphadenopathy, splenomegaly or hypofibrinogenemia. The degree of elevation of ferritin is very mild considering her ongoing issues. Ferritin is an acute phase reactant, for HLH this is usually in the range of 10,000. Overall, she is improving with current management. I do not recommend any further workup for her cytopenias or HLH. Thank you. - Time Spent With Patient Time Spent with Patient (in minutes): 20
--- NOTE | 2025-02-19 11:13 | P.CONPL_ITS ---
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 Hospital course further complicated by acute renal failure requiring initiation of hemodialysis. Elevated by nephrology service with concern for possible lupus nephritis flare, started on high-dose systemic glucocorticoids, now on 1 milligram/kilogram of prednisone. Extubated on 02/15/2025. Continued with significant hypoxemia requiring up to 5 L of nasal cannula. Her V/Q scan is suspicious for pulmonary emboli, however she does have recurrent decrease in her hemoglobin secondary to slow GI bleed, likely from steroid induced gastritis. Review of Systems 2 Constitutional: Constitutional: Denies daytime sleepiness, Denies excessive sweating, Denies fatigue, Denies fever(s), Denies lethargy, Denies malaise, Denies night sweats, Denies snoring and Denies weight loss Eyes: Eyes: Denies blurry vision and Denies itchy eyes ENT: Denies nasal congestion, Denies post nasal drip, Denies sinus pain, Denies sinus pressure and Denies other ( Thrush) Cardiovascular: Cardiovascular: Denies chest pain, Denies pedal edema, Denies dyspnea, Denies orthopnea and Denies paroxysmal nocturnal dyspnea Respiratory: Respiratory: Denies cough, Denies hemoptysis, Denies excessive phlegm production, Denies dyspnea, Denies snoring and Denies wheezing Gastrointestinal: Gastrointestinal: Denies abdominal pain and Denies heartburn Musculoskeletal: Musculoskeletal: Denies myalgias, Denies arthralgias and Denies joint swelling Integumentary/Breasts: Skin/Breast: Denies rash Neurologic: Denies memory loss and Denies seizure-like activity Psychiatric: Psychiatric: Denies abnormal sleep pattern, Denies anxiety and Denies memory loss Endocrine: Endocrine: Denies excessive sweating, Denies fatigue and Denies heat intolerance Hematologic/Lymphatic: Hematologic/Lymphatic: Denies easy bruising Allergic/Immunologic: Allergic/Immunologic: Denies itchy eyes, Denies seasonal rhinorrhea and Denies wheezing PMFSH Past Medical History Medical History Lupus nephritis Pericardial effusion Essential hypertension Rash Acute on chronic anemia Abnormal uterine bleeding Hypertensive urgency Anemia Depression Anxiety Fibromyalgia Lupus Family History Family History Mother Hypertension Type 2 diabetes mellitus Lupus Arthritis Maternal Grandmother Hypertension Type 2 diabetes mellitus Arthritis Family history: reviewed and not pertinent Surgical History Surgical History Hx of hernia repair Social History Social History Household Members: Spouse and Children Housing: Apartment Do you presently have visiting nurse or other home services: No Alcohol intake: former Comment: achy-lupus exacerbation Patient Tobacco Use Status: Current everyday Tobacco user Tobacco use type: Cigarette Cigarette Packs Per Day: 0.5 Years Smoked: 7 Substance Use Type: Marijuana Advance Directives Date on File: 04/03/22 service: No Current occupational status: disabled Meds Allergies Allergy/AdvReac Type Severity Reaction Status Date / Time mycophenolate mofetil AdvReac Intermediate GI upset Verified 02/11/25 16:49 gabapentin AdvReac Unknown Hives Verified 02/11/25 16:49 Active Medications: Current Medications Acetaminophen (Acetaminophen 325 Mg Tablet) 650 mg PO Q6H PRN PRN Reason: Fever Last Admin: 02/19/25 10:18 Dose: 650 mg Albuterol/Ipratropium (Albuterol/Iprat 2.5/0.5mg 3 Ml Ampul.Neb) 3 ml INHALE RQ6H WHILE AWAKE PRN PRN Reason: shortness of breath/wheeze Ceftriaxone Sodium (Ceftriaxone Sodium 2 Gm Vial) 2 gm IVPUSH Q24H GERARDO Last Admin: 02/19/25 09:58 Dose: 2 gm Guaifenesin/Codeine Phosphate (Guaifen/Codeine Sf 200/20/10ml 10 Ml Liquid) 5 ml PO Q6H PRN PRN Reason: Cough Last Admin: 02/19/25 08:21 Dose: 5 ml Heparin Sodium (Porcine) (Heparin Sodium,Porcine 5,000 Unit/Ml Vial) 5,000 unit SUBCUT Q12H GERARDO Last Admin: 02/19/25 06:23 Dose: 5,000 unit Hydromorphone HCl (Hydromorphone Hcl 1 Mg/Ml Syringe) 1.25 mg IVPUSH Q3H PRN; Protocol PRN Reason: Pain, Severe (Pain Scale 7-10) Last Admin: 02/19/25 09:42 Dose: 1.25 mg Daptomycin 500 mg/ Sodium (Chloride) 60 mls @ 97.959 mls/hr IV Fr@1800 [facility] Last Infusion: 02/18/25 21:26 Dose: Infused Daptomycin 340 mg/ Sodium (Chloride) 56.8 mls @ 100 mls/hr IV MoWe@1800 [facility] Loperamide HCl (Loperamide Hcl 2 Mg Capsule) 4 mg PO Q6H PRN PRN Reason: Diarrhea Naloxone HCl (Naloxone Hcl 0.4 Mg/Ml Vial) 0.2 mg IVPUSH Q2M PRN PRN Reason: Excessive sedation or RR < 8 Omeprazole (Omeprazole 40 Mg Capsule.Dr) 40 mg PO BID@0630,1630 [facility] Last Admin: 02/19/25 06:23 Dose: 40 mg Oxycodone HCl (Oxycodone Hcl Immed Release 5 Mg Tablet) 5 mg PO Q6H PRN PRN Reason: Pain, Moderate(Pain Scale 4-6) Last Admin: 02/19/25 08:21 Dose: 5 mg Prednisone (Prednisone 20 Mg Tablet) 60 mg PO DAILY [facility] Last Admin: 02/19/25 08:21 Dose: 60 mg Sodium Chloride (0.9 % Sodium Chloride Flush 3 Ml Syringe) 3 ml IVFLUSH QSHIFT [facility] Last Admin: 02/19/25 09:57 Dose: 3 ml Physical Exam 2 Vital Signs: Vital Signs: Last Vital Signs Temp 100.0 F 02/19/25 10:08 Pulse 114 H 02/19/25 10:08 Resp 16 02/19/25 10:08 BP 135/60 02/19/25 10:08 Pulse Ox 98 02/19/25 07:12 O2 Del Method Nasal Cannula 02/19/25 07:12 O2 Flow Rate 5 02/19/25 07:12 FiO2 33 02/18/25 07:18 Oxygen Flow Rate 40 02/11/25 21:17 BMI result Body Mass Index 19.4 Const: General: no acute distress and alert Nutritional Appearance: not obese Orientation/consciousness: Other orientation findings ( oriented) HEENT: Head: Yes atraumatic Eyes: General: appearance normal, both eyes and all related structures S clerae: sclerae normal EOM: EOMs intact bilaterally Neck: Neck: Yes supple Lymphatic: no lymphadenopathy noted Resp: Effort & Inspection: normal respiratory effort and no use of accessory muscles Auscultation: clear to auscultation bilaterally Cardio: Rate: regular rate Rhythm: regular rhythm Heart sounds: no gallops, no murmurs and no rubs Skin: General skin exam: other ( warm) Extrem: General: No clubbing, No cyanosis and No edema Results Laboratory Findings 02/19/25 06:27 02/19/25 06:27 ABG, PT/INR, D-dimer: PT/INR, D-dimer PT 16.2 SEC (10.9-12.4) H 02/12/25 05:01 INR 1.4 (0.9-1.1) H 02/12/25 05:01 Abnormal lab findings: Abnormal Labs 02/11/25 02/11/25 02/11/25 17:17 17:44 18:41 WBC 15.0 H RBC 2.55 L D Hgb 7.0 L* D Hct 19.5 L* D MCV 76.5 L MCHC 35.9 H RDW 16.1 H Plt Count MPV Immature Gran % (Auto) Neut % (Auto) Lymph % (Auto) Abs Immat Gran (auto) Absolute Neuts (auto) Absolute Nucleated RBC 0.260 H Nucleated RBC % (auto) 1.7 H Neutrophils % (Manual) Band Neutrophils % 9 H Lymphocytes % (Manual) 7 L Monocytes % (Manual) Abs Neuts (Manual) 12.3 H Lymphocytes # (Manual) 1.1 L Monocytes # (Manual) Nucleated RBCs 4 H ESR > 140 H PT INR VBG pH VBG HCO3 Sodium Potassium 6.1 H* D Chloride Carbon Dioxide 10 L* D Anion Gap 28 H BUN 186 H Creatinine 11.96 H* POC Glucose Random Glucose 58 L* Haptoglobin 412 H Lactic Acid 2.6 H* Lactic Acid F/U @ 2Hr Lactic Acid F/U @ 4Hr Calcium Phosphorus Magnesium 3.9 H* Ferritin Total Bilirubin 3.3 H Direct Bilirubin 2.6 H AST 111 H ALT 42 H Alkaline Phosphatase 146 H Lactate Dehydrogenase 715 H Total Creatine Kinase 583 H C-Reactive Protein 36.82 H B-Natriuretic Peptide 364 H Total Protein Albumin 2.4 L Triglycerides Lipase < 4 L PTH Intact Ur Specific [place] Urine Protein Urine Blood Ur Leukocyte Esterase Urine RBC Nasal Screen MRSA (PCR) Nasal S. aureus Screen Random Vancomycin Urine Opiates Screen Urine Fentanyl Screen U Marijuana (THC) Screen Double Strand DNA Ab Complement C4 Tot Complement (CH50) Mycoplasma pneumon IgG Parainfluenza 3 (PCR) Crossmatch See Detail 02/11/25 02/11/25 02/11/25 18:50 19:41 19:44 WBC RBC Hgb Hct MCV MCHC RDW Plt Count MPV Immature Gran % (Auto) Neut % (Auto) Lymph % (Auto) Abs Immat Gran (auto) Absolute Neuts (auto) Absolute Nucleated RBC Nucleated RBC % (auto) Neutrophils % (Manual) Band Neutrophils % Lymphocytes % (Manual) Monocytes % (Manual) Abs Neuts (Manual) Lymphocytes # (Manual) Monocytes # (Manual) Nucleated RBCs ESR PT INR VBG pH VBG HCO3 9 L Sodium Potassium Chloride Carbon Dioxide Anion Gap BUN Creatinine POC Glucose 120 H Random Glucose Haptoglobin Lactic Acid Lactic Acid F/U @ 2Hr 3.9 H* Lactic Acid F/U @ 4Hr Calcium Phosphorus Magnesium Ferritin Total Bilirubin Direct Bilirubin AST ALT Alkaline Phosphatase Lactate Dehydrogenase Total Creatine Kinase C-Reactive Protein 32.07 H B-Natriuretic Peptide Total Protein Albumin Triglycerides Lipase PTH Intact Ur Specific [place] Urine Protein Urine Blood Ur Leukocyte Esterase Urine RBC Nasal Screen MRSA (PCR) Nasal S. aureus Screen Random Vancomycin Urine Opiates Screen Urine Fentanyl Screen U Marijuana (THC) Screen Double Strand DNA Ab Complement C4 7 L Tot Complement (CH50) 17 L Mycoplasma pneumon IgG Parainfluenza 3 (PCR) Crossmatch 02/11/25 02/11/25 02/11/25 20:37 20:48 20:51 WBC RBC Hgb Hct MCV MCHC RDW Plt Count MPV Immature Gran % (Auto) Neut % (Auto) Lymph % (Auto) Abs Immat Gran (auto) Absolute Neuts (auto) Absolute Nucleated RBC Nucleated RBC % (auto) Neutrophils % (Manual) Band Neutrophils % Lymphocytes % (Manual) Monocytes % (Manual) Abs Neuts (Manual) Lymphocytes # (Manual) Monocytes # (Manual) Nucleated RBCs ESR PT INR VBG pH VBG HCO3 11 L Sodium Potassium Chloride Carbon Dioxide Anion Gap BUN Creatinine POC Glucose Random Glucose Haptoglobin Lactic Acid Lactic Acid F/U @ 2Hr Lactic Acid F/U @ 4Hr Calcium Phosphorus Magnesium Ferritin Total Bilirubin Direct Bilirubin AST ALT Alkaline Phosphatase Lactate Dehydrogenase Total Creatine Kinase C-Reactive Protein B-Natriuretic Peptide Total Protein Albumin Triglycerides Lipase PTH Intact Ur Specific [place] >= 1.030 H Urine Protein >=1000 (4+) H Urine Blood Trace H Ur Leukocyte Esterase Trace H Urine RBC 3-5 H Nasal Screen MRSA (PCR) POSITIVE A Nasal S. aureus Screen POSITIVE A Random Vancomycin Urine Opiates Screen POSITIVE H Urine Fentanyl Screen POSITIVE H U Marijuana (THC) Screen POSITIVE H Double Strand DNA Ab 24 H Complement C4 Tot Complement (CH50) Mycoplasma pneumon IgG 1.41 H Parainfluenza 3 (PCR) Detected A Crossmatch 02/11/25 02/12/25 02/12/25 21:59 05:00 05:01 WBC 23.3 H RBC 2.76 L Hgb 7.7 L Hct 21.1 L MCV 76.4 L MCHC 36.5 H RDW 16.9 H Plt Count MPV Immature Gran % (Auto) Neut % (Auto) Lymph % (Auto) Abs Immat Gran (auto) Absolute Neuts (auto) Absolute Nucleated RBC 0.210 H Nucleated RBC % (auto) 0.9 H Neutrophils % (Manual) Band Neutrophils % 19 H Lymphocytes % (Manual) 4 L Monocytes % (Manual) Abs Neuts (Manual) 19.6 H Lymphocytes # (Manual) 0.9 L Monocytes # (Manual) 1.6 H Nucleated RBCs 4 H ESR PT 16.2 H INR 1.4 H VBG pH 7.47 H VBG HCO3 17 L Sodium Potassium 5.5 H 5.8 H Chloride Carbon Dioxide 13 L 16 L Anion Gap 27 H 26 H BUN 171 H 169 H Creatinine 10.84 H* 10.29 H* POC Glucose Random Glucose 124 H 119 H Haptoglobin Lactic Acid Lactic Acid F/U @ 2Hr Lactic Acid F/U @ 4Hr 3.2 H* Calcium 8.1 L Phosphorus 7.4 H 6.1 H Magnesium 3.2 H 3.2 H Ferritin Total Bilirubin 2.3 H Direct Bilirubin AST 104 H ALT 37 H Alkaline Phosphatase 133 H Lactate Dehydrogenase Total Creatine Kinase 572 H C-Reactive Protein B-Natriuretic Peptide Total Protein 5.9 L Albumin 2.1 L Triglycerides Lipase PTH Intact Ur Specific [place] Urine Protein Urine Blood Ur Leukocyte Esterase Urine RBC Nasal Screen MRSA (PCR) Nasal S. aureus Screen Random Vancomycin Urine Opiates Screen Urine Fentanyl Screen U Marijuana (THC) Screen Double Strand DNA Ab Complement C4 Tot Complement (CH50) Mycoplasma pneumon IgG Parainfluenza 3 (PCR) Crossmatch 02/12/25 02/12/25 02/12/25 12:58 18:03 19:54 WBC 29.6 H RBC 2.83 L Hgb 8.0 L Hct 21.7 L MCV 76.7 L MCHC 36.9 H RDW 17.0 H Plt Count MPV Immature Gran % (Auto) Neut % (Auto) Lymph % (Auto) Abs Immat Gran (auto) Absolute Neuts (auto) Absolute Nucleated RBC 0.320 H Nucleated RBC % (auto) 1.1 H Neutrophils % (Manual) Band Neutrophils % 19 H Lymphocytes % (Manual) 6 L Monocytes % (Manual) 1 L Abs Neuts (Manual) 26.9 H Lymphocytes # (Manual) Monocytes # (Manual) Nucleated RBCs ESR PT INR VBG pH VBG HCO3 Sodium Potassium 5.2 H Chloride Carbon Dioxide Anion Gap 23 H 21 H BUN 170 H 122 H Creatinine 9.78 H* 6.79 H* POC Glucose 132 H Random Glucose 172 H 126 H Haptoglobin Lactic Acid Lactic Acid F/U @ 2Hr Lactic Acid F/U @ 4Hr Calcium 8.0 L 8.2 L Phosphorus 4.6 H Magnesium 2.9 H Ferritin Total Bilirubin 1.6 H Direct Bilirubin AST 77 H ALT 34 H Alkaline Phosphatase 155 H Lactate Dehydrogenase Total Creatine Kinase C-Reactive Protein B-Natriuretic Peptide Total Protein 6.1 L Albumin 2.2 L Triglycerides Lipase PTH Intact Ur Specific [place] Urine Protein Urine Blood Ur Leukocyte Esterase Urine RBC Nasal Screen MRSA (PCR) Nasal S. aureus Screen Random Vancomycin 26.5 H* Urine Opiates Screen Urine Fentanyl Screen U Marijuana (THC) Screen Double Strand DNA Ab Complement C4 Tot Complement (CH50) Mycoplasma pneumon IgG Parainfluenza 3 (PCR) Crossmatch 02/12/25 02/13/25 02/13/25 19:58 05:21 05:26 WBC 28.4 H RBC 2.46 L Hgb 7.0 L* Hct 19.6 L* MCV 79.7 L MCHC 35.7 H RDW 17.2 H Plt Count MPV 12.4 H Immature Gran % (Auto) Neut % (Auto) Lymph % (Auto) Abs Immat Gran (auto) Absolute Neuts (auto) Absolute Nucleated RBC 0.400 H Nucleated RBC % (auto) 1.4 H Neutrophils % (Manual) 92 H Band Neutrophils % 1 L Lymphocytes % (Manual) 4 L Monocytes % (Manual) Abs Neuts (Manual) 26.4 H Lymphocytes # (Manual) 1.1 L Monocytes # (Manual) Nucleated RBCs 2 H ESR PT INR VBG pH 7.48 H 7.56 H VBG HCO3 28 H Sodium Potassium 5.4 H Chloride Carbon Dioxide Anion Gap 21 H BUN 132 H Creatinine 7.60 H* POC Glucose Random Glucose 131 H Haptoglobin Lactic Acid Lactic Acid F/U @ 2Hr Lactic Acid F/U @ 4Hr Calcium 7.6 L D Phosphorus 7.1 H Magnesium 3.2 H Ferritin Total Bilirubin Direct Bilirubin AST 40 H ALT Alkaline Phosphatase 157 H Lactate Dehydrogenase Total Creatine Kinase C-Reactive Protein B-Natriuretic Peptide Total Protein 5.9 L Albumin 2.0 L Triglycerides Lipase PTH Intact Ur Specific [place] Urine Protein Urine Blood Ur Leukocyte Esterase Urine RBC Nasal Screen MRSA (PCR) Nasal S. aureus Screen Random Vancomycin Urine Opiates Screen Urine Fentanyl Screen U Marijuana (THC) Screen Double Strand DNA Ab Complement C4 Tot Complement (CH50) Mycoplasma pneumon IgG Parainfluenza 3 (PCR) Crossmatch 02/13/25 02/13/25 02/14/25 17:58 19:16 00:06 WBC 29.7 H RBC 2.60 L Hgb 7.7 L Hct 21.4 L MCV MCHC 36.0 H RDW 17.9 H Plt Count MPV Immature Gran % (Auto) Neut % (Auto) Lymph % (Auto) Abs Immat Gran (auto) Absolute Neuts (auto) Absolute Nucleated RBC 0.490 H Nucleated RBC % (auto) 1.6 H Neutrophils % (Manual) 85 H Band Neutrophils % 7 H Lymphocytes % (Manual) 5 L Monocytes % (Manual) Abs Neuts (Manual) 27.3 H Lymphocytes # (Manual) Monocytes # (Manual) Nucleated RBCs 6 H ESR PT INR VBG pH VBG HCO3 Sodium Potassium Chloride Carbon Dioxide Anion Gap BUN 114 H Creatinine 5.93 H* POC Glucose 152 H 158 H Random Glucose 163 H Haptoglobin Lactic Acid Lactic Acid F/U @ 2Hr Lactic Acid F/U @ 4Hr Calcium 8.3 L D Phosphorus 7.3 H Magnesium 2.9 H Ferritin Total Bilirubin Direct Bilirubin AST ALT Alkaline Phosphatase Lactate Dehydrogenase Total Creatine Kinase C-Reactive Protein B-Natriuretic Peptide Total Protein Albumin 2.7 L Triglycerides Lipase PTH Intact Ur Specific [place] Urine Protein Urine Blood Ur Leukocyte Esterase Urine RBC Nasal Screen MRSA (PCR) Nasal S. aureus Screen Random Vancomycin Urine Opiates Screen Urine Fentanyl Screen U Marijuana (THC) Screen Double Strand DNA Ab Complement C4 Tot Complement (CH50) Mycoplasma pneumon IgG Parainfluenza 3 (PCR) Crossmatch 02/14/25 02/14/25 02/14/25 05:07 05:18 12:14 WBC 26.7 H RBC 2.46 L Hgb 7.3 L Hct 20.2 L* MCV MCHC 36.1 H RDW 18.0 H Plt Count MPV Immature Gran % (Auto) Neut % (Auto) Lymph % (Auto) Abs Immat Gran (auto) Absolute Neuts (auto) Absolute Nucleated RBC 0.570 H Nucleated RBC % (auto) 2.1 H Neutrophils % (Manual) 88 H Band Neutrophils % 7 H Lymphocytes % (Manual) 3 L Monocytes % (Manual) Abs Neuts (Manual) 25.4 H Lymphocytes # (Manual) 0.8 L Monocytes # (Manual) Nucleated RBCs 2 H ESR PT INR VBG pH 7.47 H VBG HCO3 Sodium Potassium Chloride Carbon Dioxide 21 L Anion Gap 23 H BUN 127 H Creatinine 6.23 H* POC Glucose 140 H Random Glucose 169 H Haptoglobin Lactic Acid Lactic Acid F/U @ 2Hr Lactic Acid F/U @ 4Hr Calcium 7.9 L Phosphorus 8.0 H Magnesium 3.2 H Ferritin Total Bilirubin Direct Bilirubin AST ALT Alkaline Phosphatase 145 H Lactate Dehydrogenase Total Creatine Kinase C-Reactive Protein B-Natriuretic Peptide Total Protein 6.4 L Albumin 2.9 L Triglycerides Lipase PTH Intact Ur Specific [place] Urine Protein Urine Blood Ur Leukocyte Esterase Urine RBC Nasal Screen MRSA (PCR) Nasal S. aureus Screen Random Vancomycin Urine Opiates Screen Urine Fentanyl Screen U Marijuana (THC) Screen Double Strand DNA Ab Complement C4 Tot Complement (CH50) Mycoplasma pneumon IgG Parainfluenza 3 (PCR) Crossmatch 02/14/25 02/14/25 02/15/25 18:14 20:02 00:37 WBC 26.6 H RBC 2.61 L Hgb 8.0 L Hct 21.5 L MCV MCHC 37.2 H RDW 17.9 H Plt Count 152 L MPV Immature Gran % (Auto) Neut % (Auto) Lymph % (Auto) Abs Immat Gran (auto) Absolute Neuts (auto) Absolute Nucleated RBC 0.740 H Nucleated RBC % (auto) 2.8 H Neutrophils % (Manual) Band Neutrophils % Lymphocytes % (Manual) Monocytes % (Manual) Abs Neuts (Manual) Lymphocytes # (Manual) Monocytes # (Manual) Nucleated RBCs ESR PT INR VBG pH VBG HCO3 Sodium Potassium Chloride Carbon Dioxide Anion Gap 21 H BUN 103 H Creatinine 4.48 H* POC Glucose 151 H 152 H Random Glucose 140 H Haptoglobin Lactic Acid Lactic Acid F/U @ 2Hr Lactic Acid F/U @ 4Hr Calcium 8.0 L Phosphorus Magnesium Ferritin Total Bilirubin Direct Bilirubin AST ALT Alkaline Phosphatase Lactate Dehydrogenase Total Creatine Kinase C-Reactive Protein B-Natriuretic Peptide Total Protein Albumin Triglycerides Lipase PTH Intact Ur Specific [place] Urine Protein Urine Blood Ur Leukocyte Esterase Urine RBC Nasal Screen MRSA (PCR) Nasal S. aureus Screen Random Vancomycin 12.6 L Urine Opiates Screen Urine Fentanyl Screen U Marijuana (THC) Screen Double Strand DNA Ab Complement C4 Tot Complement (CH50) Mycoplasma pneumon IgG Parainfluenza 3 (PCR) Crossmatch 02/15/25 02/15/25 02/15/25 05:32 05:41 11:55 WBC 27.2 H RBC 2.89 L Hgb 8.6 L Hct 24.6 L MCV MCHC RDW 18.5 H Plt Count 140 L MPV Immature Gran % (Auto) Neut % (Auto) Lymph % (Auto) Abs Immat Gran (auto) Absolute Neuts (auto) Absolute Nucleated RBC 0.840 H Nucleated RBC % (auto) 3.1 H Neutrophils % (Manual) 79 H Band Neutrophils % Lymphocytes % (Manual) 6 L Monocytes % (Manual) Abs Neuts (Manual) 22.3 H Lymphocytes # (Manual) Monocytes # (Manual) 2.2 H Nucleated RBCs 4 H ESR PT INR VBG pH 7.67 H* VBG HCO3 19 L Sodium Potassium Chloride Carbon Dioxide 19 L Anion Gap 23 H BUN 125 H Creatinine 5.04 H* POC Glucose 131 H Random Glucose 163 H Haptoglobin Lactic Acid Lactic Acid F/U @ 2Hr Lactic Acid F/U @ 4Hr Calcium 7.9 L Phosphorus 5.6 H Magnesium 2.8 H Ferritin Total Bilirubin Direct Bilirubin AST ALT Alkaline Phosphatase 132 H Lactate Dehydrogenase Total Creatine Kinase C-Reactive Protein B-Natriuretic Peptide Total Protein Albumin 3.2 L Triglycerides Lipase PTH Intact Ur Specific [place] Urine Protein Urine Blood Ur Leukocyte Esterase Urine RBC Nasal Screen MRSA (PCR) Nasal S. aureus Screen Random Vancomycin Urine Opiates Screen Urine Fentanyl Screen U Marijuana (THC) Screen Double Strand DNA Ab Complement C4 Tot Complement (CH50) Mycoplasma pneumon IgG Parainfluenza 3 (PCR) Crossmatch 02/15/25 02/15/25 02/15/25 17:27 18:30 21:35 WBC 35.6 H* RBC 3.29 L Hgb 9.5 L Hct 27.1 L MCV MCHC 35.1 H RDW 17.8 H Plt Count 71 L D MPV Immature Gran % (Auto) Neut % (Auto) Lymph % (Auto) Abs Immat Gran (auto) Absolute Neuts (auto) Absolute Nucleated RBC 0.840 H Nucleated RBC % (auto) 2.4 H Neutrophils % (Manual) 80 H Band Neutrophils % 6 H Lymphocytes % (Manual) 6 L Monocytes % (Manual) Abs Neuts (Manual) 30.6 H Lymphocytes # (Manual) Monocytes # (Manual) Nucleated RBCs 2 H ESR PT INR VBG pH VBG HCO3 Sodium Potassium Chloride Carbon Dioxide Anion Gap BUN Creatinine POC Glucose 120 H Random Glucose Haptoglobin Lactic Acid Lactic Acid F/U @ 2Hr Lactic Acid F/U @ 4Hr Calcium Phosphorus Magnesium Ferritin Total Bilirubin Direct Bilirubin AST ALT Alkaline Phosphatase Lactate Dehydrogenase Total Creatine Kinase C-Reactive Protein B-Natriuretic Peptide Total Protein Albumin Triglycerides Lipase PTH Intact Ur Specific [place] Urine Protein Urine Blood Ur Leukocyte Esterase Urine RBC Nasal Screen MRSA (PCR) Nasal S. aureus Screen Random Vancomycin 13.8 L Urine Opiates Screen Urine Fentanyl Screen U Marijuana (THC) Screen Double Strand DNA Ab Complement C4 Tot Complement (CH50) Mycoplasma pneumon IgG Parainfluenza 3 (PCR) Crossmatch 02/15/25 02/16/25 02/16/25 23:20 05:02 05:14 WBC 30.7 H* RBC 2.70 L Hgb 8.0 L Hct 23.9 L MCV MCHC RDW 17.2 H Plt Count 68 L MPV Immature Gran % (Auto) Neut % (Auto) Lymph % (Auto) Abs Immat Gran (auto) Absolute Neuts (auto) Absolute Nucleated RBC 0.600 H Nucleated RBC % (auto) 2.0 H Neutrophils % (Manual) 83 H Band Neutrophils % 6 H Lymphocytes % (Manual) 7 L Monocytes % (Manual) 1 L Abs Neuts (Manual) 27.3 H Lymphocytes # (Manual) Monocytes # (Manual) Nucleated RBCs 2 H ESR PT INR VBG pH 7.50 H VBG HCO3 Sodium Potassium Chloride Carbon Dioxide Anion Gap 23 H BUN 84 H 104 H Creatinine 3.73 H 4.15 H* POC Glucose Random Glucose 145 H Haptoglobin Lactic Acid Lactic Acid F/U @ 2Hr Lactic Acid F/U @ 4Hr Calcium 8.3 L 8.2 L Phosphorus 5.1 H Magnesium Ferritin Total Bilirubin Direct Bilirubin AST ALT Alkaline Phosphatase Lactate Dehydrogenase Total Creatine Kinase C-Reactive Protein B-Natriuretic Peptide Total Protein Albumin 3.1 L Triglycerides Lipase PTH Intact Ur Specific [place] Urine Protein Urine Blood Ur Leukocyte Esterase Urine RBC Nasal Screen MRSA (PCR) Nasal S. aureus Screen Random Vancomycin Urine Opiates Screen Urine Fentanyl Screen U Marijuana (THC) Screen Double Strand DNA Ab Complement C4 Tot Complement (CH50) Mycoplasma pneumon IgG Parainfluenza 3 (PCR) Crossmatch 02/16/25 02/17/25 02/17/25 11:52 06:19 12:15 WBC 25.1 H RBC 2.67 L Hgb 7.8 L Hct 24.1 L MCV MCHC RDW 16.7 H Plt Count 80 L MPV Immature Gran % (Auto) Neut % (Auto) Lymph % (Auto) Abs Immat Gran (auto) Absolute Neuts (auto) Absolute Nucleated RBC 0.370 H Nucleated RBC % (auto) 1.5 H Neutrophils % (Manual) 75 H Band Neutrophils % 6 H Lymphocytes % (Manual) 9 L Monocytes % (Manual) Abs Neuts (Manual) 20.3 H Lymphocytes # (Manual) Monocytes # (Manual) 1.8 H Nucleated RBCs ESR PT INR VBG pH VBG HCO3 Sodium 134 L Potassium Chloride Carbon Dioxide Anion Gap BUN 83 H Creatinine 4.31 H* POC Glucose 147 H 121 H Random Glucose Haptoglobin Lactic Acid Lactic Acid F/U @ 2Hr Lactic Acid F/U @ 4Hr Calcium Phosphorus 8.5 H Magnesium Ferritin 2291 H Total Bilirubin Direct Bilirubin AST 32 H ALT Alkaline Phosphatase Lactate Dehydrogenase 455 H Total Creatine Kinase C-Reactive Protein B-Natriuretic Peptide Total Protein Albumin 3.1 L Triglycerides 352 H Lipase PTH Intact 439.5 H Ur Specific [place] Urine Protein Urine Blood Ur Leukocyte Esterase Urine RBC Nasal Screen MRSA (PCR) Nasal S. aureus Screen Random Vancomycin Urine Opiates Screen Urine Fentanyl Screen U Marijuana (THC) Screen Double Strand DNA Ab Complement C4 Tot Complement (CH50) Mycoplasma pneumon IgG Parainfluenza 3 (PCR) Crossmatch 02/17/25 02/17/25 02/18/25 14:57 18:01 06:17 WBC RBC Hgb 8.7 L Hct 26.7 L MCV MCHC RDW Plt Count MPV Immature Gran % (Auto) Neut % (Auto) Lymph % (Auto) Abs Immat Gran (auto) Absolute Neuts (auto) Absolute Nucleated RBC Nucleated RBC % (auto) Neutrophils % (Manual) Band Neutrophils % Lymphocytes % (Manual) Monocytes % (Manual) Abs Neuts (Manual) Lymphocytes # (Manual) Monocytes # (Manual) Nucleated RBCs ESR PT INR VBG pH VBG HCO3 Sodium Potassium Chloride Carbon Dioxide Anion Gap BUN Creatinine POC Glucose 122 H Random Glucose Haptoglobin Lactic Acid Lactic Acid F/U @ 2Hr Lactic Acid F/U @ 4Hr Calcium Phosphorus Magnesium Ferritin Total Bilirubin Direct Bilirubin AST ALT Alkaline Phosphatase Lactate Dehydrogenase Total Creatine Kinase C-Reactive Protein B-Natriuretic Peptide Total Protein Albumin Triglycerides Lipase PTH Intact Ur Specific [place] Urine Protein Urine Blood Ur Leukocyte Esterase Urine RBC Nasal Screen MRSA (PCR) Nasal S. aureus Screen Random Vancomycin 9.1 L Urine Opiates Screen Urine Fentanyl Screen U Marijuana (THC) Screen Double Strand DNA Ab Complement C4 Tot Complement (CH50) Mycoplasma pneumon IgG Parainfluenza 3 (PCR) Crossmatch 02/18/25 02/18/25 02/19/25 06:53 18:11 06:27 WBC 27.7 H 29.1 H RBC 2.67 L 2.17 L Hgb 8.0 L 6.5 L* Hct 25.0 L 20.3 L* MCV MCHC RDW 16.9 H 16.6 H Plt Count 125 L D 149 L MPV Immature Gran % (Auto) 3.2 H Neut % (Auto) 87.9 H Lymph % (Auto) 5.5 L Abs Immat Gran (auto) 0.93 H Absolute Neuts (auto) 25.6 H Absolute Nucleated RBC 0.490 H 0.140 H Nucleated RBC % (auto) 1.8 H 0.5 H Neutrophils % (Manual) 81 H Band Neutrophils % Lymphocytes % (Manual) 10 L Monocytes % (Manual) Abs Neuts (Manual) 23.5 H Lymphocytes # (Manual) Monocytes # (Manual) Nucleated RBCs ESR PT INR VBG pH VBG HCO3 Sodium 131 L 131 L Potassium 2.9 L* Chloride 93 L 95 L Carbon Dioxide Anion Gap BUN 55 H 34 H Creatinine 3.94 H 3.72 H POC Glucose Random Glucose Haptoglobin Lactic Acid Lactic Acid F/U @ 2Hr Lactic Acid F/U @ 4Hr Calcium 8.0 L 7.9 L Phosphorus Magnesium Ferritin Total Bilirubin Direct Bilirubin AST ALT Alkaline Phosphatase Lactate Dehydrogenase Total Creatine Kinase C-Reactive Protein B-Natriuretic Peptide Total Protein Albumin Triglycerides Lipase PTH Intact Ur Specific [place] Urine Protein Urine Blood Ur Leukocyte Esterase Urine RBC Nasal Screen MRSA (PCR) Nasal S. aureus Screen Random Vancomycin 12.7 L Urine Opiates Screen Urine Fentanyl Screen U Marijuana (THC) Screen Double Strand DNA Ab Complement C4 Tot Complement (CH50) Mycoplasma pneumon IgG Parainfluenza 3 (PCR) Crossmatch 02/19/25 07:59 WBC RBC Hgb Hct MCV MCHC RDW Plt Count MPV Immature Gran % (Auto) Neut % (Auto) Lymph % (Auto) Abs Immat Gran (auto) Absolute Neuts (auto) Absolute Nucleated RBC Nucleated RBC % (auto) Neutrophils % (Manual) Band Neutrophils % Lymphocytes % (Manual) Monocytes % (Manual) Abs Neuts (Manual) Lymphocytes # (Manual) Monocytes # (Manual) Nucleated RBCs ESR PT INR VBG pH VBG HCO3 Sodium Potassium Chloride Carbon Dioxide Anion Gap BUN Creatinine POC Glucose Random Glucose Haptoglobin Lactic Acid Lactic Acid F/U @ 2Hr Lactic Acid F/U @ 4Hr Calcium Phosphorus Magnesium Ferritin Total Bilirubin Direct Bilirubin AST ALT Alkaline Phosphatase Lactate Dehydrogenase Total Creatine Kinase C-Reactive Protein B-Natriuretic Peptide Total Protein Albumin Triglycerides Lipase PTH Intact Ur Specific [place] Urine Protein Urine Blood Ur Leukocyte Esterase Urine RBC Nasal Screen MRSA (PCR) Nasal S. aureus Screen Random Vancomycin Urine Opiates Screen Urine Fentanyl Screen U Marijuana (THC) Screen Double Strand DNA Ab Complement C4 Tot Complement (CH50) Mycoplasma pneumon IgG Parainfluenza 3 (PCR) Crossmatch See Detail Microbiology: Microbiology 02/16/25 16:36 Blood - Venous Blood Culture - Final Methicillin Res Staph Aureus 02/16/25 16:36 Blood - Venous Blood Culture - Preliminary No growth after 48 hours. 02/15/25 20:03 Blood - Venous Blood Culture - Final Methicillin Res Staph Aureus 02/15/25 20:03 Blood - Venous Blood Culture - Preliminary No growth after 48 hours. 02/14/25 10:51 Blood - Venous Blood Culture - Final Methicillin Res Staph Aureus 02/14/25 10:27 Blood - Venous Blood Culture - Final Methicillin Res Staph Aureus 02/12/25 09:59 Blood - Venous Blood Culture - Final Methicillin Res Staph Aureus 02/12/25 09:48 Blood - Venous Blood Culture - Final Methicillin Res Staph Aureus 02/11/25 17:44 Blood - Venous Blood Culture - Final Escherichia coli Klebsiella oxytoca 02/11/25 17:17 Blood - Venous Blood Culture - Final Escherichia coli Klebsiella oxytoca Assessment and Plan (1) Acute hypoxic respiratory failure: Status: Acute (2) Right lower lobe pneumonia: Status: Acute (3) Pulmonary embolism: Status: Acute Plan Impression: 29-year-old lady with underlying lupus with lupus nephritis, pneumonia, hypoxic respiratory failure, V/Q scan suspicious for pulmonary embolism, 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 At this time patient would be a poor candidate for full-dose anticoagulation secondary to ongoing blood loss anemia with likely GI source. Recommendations: Consider evaluation for lower extremity venous thrombosis, if positive, consider placement of Elver filter. Procedures Date of Service Date of Service: 02/19/25
[2025-02-19 13:02] LABS: Potassium 4.1 mmol/L (3.3-5.1)
[2025-02-19 23:28] LABS: Strep Pneumo Ag urine Not Detected (Not Detected)
--- NOTE | 2025-02-20 | PM.PNNEP ---
Subjective Subjective Date of Service: 03/04/25 Principal diagnosis: MRSA bacteremia Interval history: seen and examined this morning following for renal failure now on HD pt to get CTA this a.m. due to abnormal perfusion study - plan for HD immediately following to minimize contrast effects continues to complain of widespread pain Physical Exam Vital Signs: Vital Signs: Last Vital Signs Temp 98.2 F 03/04/25 12:00 Pulse 108 H 03/04/25 12:00 Resp 18 03/04/25 12:00 BP 136/93 H 03/04/25 12:00 Pulse Ox 98 03/04/25 12:00 O2 Del Method Room Air 03/04/25 12:00 O2 Flow Rate 2 02/28/25 09:40 FiO2 33 02/18/25 07:18 Oxygen Flow Rate 3 02/21/25 08:00 BMI result Body Mass Index 19.1 Const: General: no acute distress, alert and awake Resp: Effort & Inspection: normal respiratory effort Auscultation: clear to auscultation bilaterally Cardio: Rate: regular rate Rhythm: regular rhythm Heart sounds: S1 normal heart sound present and S2 normal heart sound present GI: Palpation (GI): Soft to palpation and nontender Skin: Rashes: no rashes Extrem: General: No edema Objective Data Labs 03/04/25 08:54 03/04/25 08:54 Labs: Laboratory Results - last 24 hr 02/26/25 03/03/25 03/04/25 06:19 16:59 00:18 WBC RBC Hgb Hct MCV MCH MCHC RDW Plt Count MPV Absolute Nucleated RBC Nucleated RBC % (auto) PT 10.5 L INR 0.9 APTT 28.8 aPTT Heparin Protocol 28.8 L 40.0 L D Sodium Potassium Chloride Carbon Dioxide Anion Gap BUN Creatinine Estim Creat Clear Calc Estimated GFR Random Glucose Calcium Beta-2-GPI IgG Ab <2.0 Beta-2-GPI IgA Ab 2.6 Beta-2-GPI IgM Ab <2.0 Phosphatidylserine IgG 68 H Phosphatidylserine IgM 10 Phospholipid Ab Comment see note Anti-Cardiolipin IgG Ab <2.0 Anti-Cardiolipin IgA Ab 2.0 Anti-Cardiolipin IgM Ab <2.0 03/04/25 08:54 WBC 18.0 H RBC 2.59 L Hgb 8.1 L Hct 24.6 L MCV 95.0 MCH 31.3 MCHC 32.9 RDW 17.5 H Plt Count 203 MPV 10.4 Absolute Nucleated RBC 0.040 H Nucleated RBC % (auto) 0.2 PT INR APTT aPTT Heparin Protocol 54.9 D Sodium 136 Potassium 3.7 Chloride 102 Carbon Dioxide 25 Anion Gap 13 BUN 47 H Creatinine 2.68 H Estim Creat Clear Calc 27.3 Estimated GFR 21 Random Glucose 81 Calcium 8.3 L Beta-2-GPI IgG Ab Beta-2-GPI IgA Ab Beta-2-GPI IgM Ab Phosphatidylserine IgG Phosphatidylserine IgM Phospholipid Ab Comment Anti-Cardiolipin IgG Ab Anti-Cardiolipin IgA Ab Anti-Cardiolipin IgM Ab Microbiology Microbiology Results: Microbiology 02/20/25 12:13 Blood - Arterial Blood Culture - Final No growth after 5 days. 02/20/25 12:13 Blood - Arterial Blood Culture - Final No growth after 5 days. 02/16/25 16:36 Blood - Venous Blood Culture - Final No growth after 5 days. 02/15/25 20:03 Blood - Venous Blood Culture - Final No growth after 5 days. 02/16/25 16:36 Blood - Venous Blood Culture - Final Methicillin Res Staph Aureus 02/15/25 20:03 Blood - Venous Blood Culture - Final Methicillin Res Staph Aureus 02/14/25 10:51 Blood - Venous Blood Culture - Final Methicillin Res Staph Aureus 02/14/25 10:27 Blood - Venous Blood Culture - Final Methicillin Res Staph Aureus 02/12/25 09:59 Blood - Venous Blood Culture - Final Methicillin Res Staph Aureus 02/12/25 09:48 Blood - Venous Blood Culture - Final Methicillin Res Staph Aureus 02/11/25 17:44 Blood - Venous Blood Culture - Final Escherichia coli Klebsiella oxytoca 02/11/25 17:17 Blood - Venous Blood Culture - Final Escherichia coli Klebsiella oxytoca Procedures Date of Service Date of Service: 03/04/25 Assessment & Plan Assessment and plan (1) Acute renal failure (ARF): Status: Acute (2) Systemic lupus erythematosus: Status: Acute Plan Initial KALEIGH likely due to tubular injury from sepsis and 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 Patient now on HD MWF. Likely has active lupus nephritis- low C4 with elevated REN titers, elevated DS DNA ab- renal biopsy is pending. Has left permcath placed left SVC on 02/25. no erythema or swelling or drainage at site. patient to start outpatient Dialysis MWF at [facility] on [address] [facility]. Start date moved to Friday, 03/07, time TBD. She will need daptomycin IV 350mg Friday, Friday and 500mg Fridays post dialysis through 04/04/25 for total of 6 weeks. hospital supportive employment case manager should liase with [facility] unit before D/c and ensure transportation is in order for patient. 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 Recommends IV daptomycin renally dosed for 6 weeks (receiving 340mg IV and 500mg IV Fridays, since 02/21/25), ceftin 500mg PO q12h for 14 days total, 02/24-03/10/25. phosphorous 3.7, continue sevelamer calcium 8.6, PTH 213, vitamin D levels low. 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 Also had perfusion scan raising suspicion for PE, CTA planne this a.m. and will get HD afterward. Antiphospholipid antibody panel: phosphatidylserine IgG is elevated, in conjunction with clot this is concerning for APS, recommend hematology consult for recommendations regarding anticoagulation recommend daily electrolyte and renal function studies recommend regular blood pressure checks, I&O monitoring avoid nephrotoxins Continue supportive care Discussed with Dr Mcnair Time Spent With Patient Time: Total time managing care of this patient today ____ minutes. Progress Note: Quality Stroke Does the patient have a stroke diagnosis?: No
[2025-02-20] MEDS: HYDROmorphone HCl 1 MG/ML SYRINGE 1.25 MG IVPUSH ×8 (00:35→21:38)
[2025-02-20 03:51] VITALS: BP 128/64; PULSE 94; RESP 20; TEMP 36.7; O2SAT 97
[2025-02-20 06:00] VITALS: BMI 19.3
[2025-02-20] MEDS: Heparin Sodium,Porcine 5,000 UNIT/ML VIAL 5000 UNIT SUBCUT ×2 (06:31→17:43)
[2025-02-20] MEDS: Omeprazole 40 MG CAPSULE.DR PO ×2 (06:34→15:48)
[2025-02-20 07:01] VITALS: BP 123/65; PULSE 100; RESP 18; TEMP 36.4; O2SAT 98
[2025-02-20 07:54] LABS: Basophils Absolute Auto 0.1 X10*3/uL (0.0-0.2); Basophils Percent Auto 0.2 % (0-2); Hematocrit 27.3 % (37.0-47.0); Imm Gran Abs Auto 0.48 X10*3/uL (0.00-0.03); Imm Gran Pct Auto 1.8 % (0.0-0.4); Lymphocytes Percent Auto 3.8 % (20-40); MANUAL DIFF FLAG SCAN; Mean Corpuscular Hemoglobin 30.1 pg (27.0-33.0); Mean Corpuscular Volume 91.3 fL (80.0-98.0); Mean Platelet Volume 11.4 fL (9.4-12.3); Monocytes Absolute Auto 0.8 X10*3/uL (0.1-1.2); NRBC Pct Auto 0.1 /100WBC (0.0-0.2); Neutrophils Absolute Auto 24.3 x10*3/uL (2.0-8.3); Neutrophils Percent Auto 91.2 % (45-73); Platelet Count 195 X10*3/uL (160-400); Red Blood Count 2.99 X10*6/uL (4.20-5.50); Red Cell Distribution Width 16.1 % (11.0-16.0); SCAN SMEAR FLAG 1; White Blood Count 26.7 X10*3/uL (4.8-10.8)
[2025-02-20] MEDS: predniSONE 20 MG TABLET 60 MG PO (07:54)
[2025-02-20 08:09] LABS: Anion Gap 23 (12-20); Blood Urea Nitrogen 49 mg/dL (9-16); Calcium 8.1 mg/dL (8.4-10.2); Carbon Dioxide 17 mmol/L (22-29); Chloride 95 mmol/L (96-108); Glucose Random 78 mg/dL (60-115); Potassium 3.8 mmol/L (3.3-5.1); Sodium 131 mmol/L (135-145)
[2025-02-20 08:12] LABS: Creatinine Clr Calc Pharmacy 14.8; Estimated Glomerular Filt Rate 10
[2025-02-20 08:18] LABS: SLIDE REVIEW VERIFIED
[2025-02-20] MEDS: 0.9 % Sodium Chloride Flush 3 ML SYRINGE IVFLUSH ×3 (09:08→21:42)
[2025-02-20] MEDS: guaiFEN/Codeine SF 200/20/10ML 10 ML LIQUID 5 ML PO ×2 (09:37→15:47)
[2025-02-20] MEDS: cefTRIAXone sodium 2 GM VIAL IVPUSH (09:38)
--- NOTE | 2025-02-20 10:54 | HO.PM.IMPN ---
Subjective Subjective Date of Service: 02/20/25 Interval History: follow up for respiratory failure, bacteremia, endocarditis, renal failure widespread body pain cough Review of Systems Review of Systems: Yes all other systems are reviewed and are negative Constitutional Constitutional: Denies chills and Denies fever(s) Cardiovascular Cardiovascular: Denies chest pain and Denies palpitations Respiratory Respiratory: Reports cough Endocrine Endocrine: Denies palpitations Physical Exam Vital Signs: Vital Signs: Last Vital Signs Temp 97.5 F 02/20/25 07:01 Pulse 100 02/20/25 07:01 Resp 18 02/20/25 07:01 BP 123/65 02/20/25 07:01 Pulse Ox 98 02/20/25 07:01 O2 Del Method Nasal Cannula 02/20/25 07:01 O2 Flow Rate 3 02/20/25 07:01 FiO2 33 02/18/25 07:18 Oxygen Flow Rate 40 02/11/25 21:17 BMI result Body Mass Index 19.3 Appearing in no acute distress lung sounds are clear to auscultation heart regular rate rhythm, clear S1, S2 positive bowel sounds, abdomen is soft, nontender neuro patient is alert x3, no focal deficits Objective Data Active Medications Acetaminophen (Acetaminophen 325 Mg Tablet) 650 mg PO Q6H PRN PRN Reason: Fever Last Admin: 02/19/25 10:18 Dose: 650 mg Documented By: TIFFANY Albuterol/Ipratropium (Albuterol/Iprat 2.5/0.5mg 3 Ml Ampul.Neb) 3 ml INHALE RQ6H WHILE AWAKE PRN PRN Reason: shortness of breath/wheeze Ceftriaxone Sodium (Ceftriaxone Sodium 2 Gm Vial) 2 gm IVPUSH Q24H [facility] Last Admin: 02/20/25 09:38 Dose: 2 gm Documented By: TIFFANY Guaifenesin/Codeine Phosphate (Guaifen/Codeine Sf 200/20/10ml 10 Ml Liquid) 5 ml PO Q6H PRN PRN Reason: Cough Last Admin: 02/20/25 09:37 Dose: 5 ml Documented By: TIFFANY Heparin Sodium (Porcine) (Heparin Sodium,Porcine 5,000 Unit/Ml Vial) 5,000 unit SUBCUT Q12H [facility] Last Admin: 02/20/25 06:31 Dose: 5,000 unit Documented By: CHERYL Hydromorphone HCl (Hydromorphone Hcl 1 Mg/Ml Syringe) 1.25 mg IVPUSH Q3H PRN; Protocol PRN Reason: Pain, Severe (Pain Scale 7-10) Last Admin: 02/20/25 09:36 Dose: 1.25 mg Documented By: TIFFANY Daptomycin 500 mg/ Sodium (Chloride) 60 mls @ 97.959 mls/hr IV Fr@1800 [facility] Last Infusion: 02/18/25 21:26 Dose: Infused Documented By: CHERYL Daptomycin 340 mg/ Sodium (Chloride) 56.8 mls @ 100 mls/hr IV MoWe@1800 [facility] Loperamide HCl (Loperamide Hcl 2 Mg Capsule) 4 mg PO Q6H PRN PRN Reason: Diarrhea Naloxone HCl (Naloxone Hcl 0.4 Mg/Ml Vial) 0.2 mg IVPUSH Q2M PRN PRN Reason: Excessive sedation or RR < 8 Omeprazole (Omeprazole 40 Mg Capsule.Dr) 40 mg PO BID@0630,1630 [facility] Last Admin: 02/20/25 06:34 Dose: 40 mg Documented By: CHERYL Oxycodone HCl (Oxycodone Hcl Immed Release 5 Mg Tablet) 5 mg PO Q6H PRN PRN Reason: Pain, Moderate(Pain Scale 4-6) Last Admin: 02/19/25 08:21 Dose: 5 mg Documented By: TIFFANY Prednisone (Prednisone 20 Mg Tablet) 60 mg PO DAILY [facility] Last Admin: 02/20/25 07:54 Dose: 60 mg Documented By: TIFFANY Sodium Chloride (0.9 % Sodium Chloride Flush 3 Ml Syringe) 3 ml IVFLUSH QSHIFT [facility] Last Admin: 02/20/25 09:08 Dose: 3 ml Documented By: TIFFANY Labs 02/20/25 07:10 02/20/25 07:10 Labs: Laboratory Results - last 24 hr 02/11/25 02/19/25 02/19/25 20:51 07:59 12:21 MCV MCH MCHC RDW Plt Count MPV Immature Gran % (Auto) Neut % (Auto) Lymph % (Auto) [place] % (Auto) Eos % (Auto) Baso % (Auto) Lymph # (Auto) [place] # (Auto) Eos # (Auto) Baso # (Auto) Abs Immat Gran (auto) Absolute Neuts (auto) Absolute Nucleated RBC Nucleated RBC % (auto) Smear Tech's Comments Hold Purple Top SEE NOTE Anion Gap Estim Creat Clear Calc Estimated GFR Random Glucose Calcium Hold Yellow Top See Note Ur Strep pneumoniae Ag Not Detected Blood Type A Positive Antibody Screen NEGATIVE Crossmatch See Detail 02/20/25 07:10 MCV 91.3 MCH 30.1 MCHC 33.0 RDW 16.1 H Plt Count 195 D MPV 11.4 Immature Gran % (Auto) 1.8 H Neut % (Auto) 91.2 H Lymph % (Auto) 3.8 L [place] % (Auto) 3.0 Eos % (Auto) 0.0 Baso % (Auto) 0.2 Lymph # (Auto) 1.0 L [place] # (Auto) 0.8 Eos # (Auto) 0.0 Baso # (Auto) 0.1 Abs Immat Gran (auto) 0.48 H Absolute Neuts (auto) 24.3 H Absolute Nucleated RBC 0.040 H Nucleated RBC % (auto) 0.1 Smear Tech's Comments VERIFIED Hold Purple Top Anion Gap 23 H Estim Creat Clear Calc 14.8 Estimated GFR 10 Random Glucose 78 Calcium 8.1 L Hold Yellow Top Ur Strep pneumoniae Ag Blood Type Antibody Screen Crossmatch Microbiology Microbiology Results: Microbiology 02/16/25 16:36 Blood Culture - Final Blood - Venous Methicillin Res Staph Aureus Assessment and Plan (1) Infective endocarditis: Status: Acute (2) Bacteremia: Status: Acute (3) Acute hypoxic respiratory failure: Status: Acute (4) Right lower lobe pneumonia: Status: Acute (5) Acute renal failure (ARF): Status: Acute Plan 29-year-old female with underlying lupus with lupus nephritis on 10 mg prednisone daily admitted on 02/11/2025 with dyspnea and hypoxia secondary to right-sided pneumonia with polymicrobial bacteremia requiring intubation and ventilatory support. Hospital course further complicated by acute renal failure requiring initiation of hemodialysis. Elevated by nephrology service with concern for possible lupus nephritis flare, started on high-dose systemic glucocorticoids. Extubated on 02/15/2025. Normocytic anemia due to possible Acute GI bleed ?gastritis due to high-dose steroids (reported dark stools in ICU and stool heme occult +) Continue oral PPI seen by GI - no signs of overt bleeding, no indication for EGD at this time HH today 6.5/20.3, s/p tx 2 units PRBC 02/19/25 HH today 9.0/27.3 Hypokalemia. Resolved Oral potassium Sinus tachycardia EKG reviewed by cardiology>no further work up recommended at this time given persistent hypoxia, and tachycardia VQ scan ordered to rule out PE> possibility of pulmonary embolism can not be excluded Discussed with pulmonology, check venous Doppler ultrasound to lower extremities, if positive discussed with vascular surgeon regarding filter Acute renal failure May be multifactorial due to KALEIGH from tubular injury due to sepsis as well as possible active lupus nephritis Received high-dose steroids, transitioned to oral prednisone 02/17 has been started on HD, received for past several days, getting HD again today; no plan for HD over the weekend, next HD day planned for Friday Nephrology following Plan for renal biopsy when clinically stable Acute respiratory failure with hypoxia due to pneumonia Status post extubation, remains on high flow tested + for parainfluenza virus. mycoplasma IgG + and IgM negative, nonspecific per ID, no need for azithromycin Currently on daptomycin Severe sepsis due to Polymicrobial bacteremia and possible acute infective endocarditis . Sepsis resolved Blood cultures growing E coli, Klebsiella, MRSA Echo with concern for nondiagnostic, TV endocarditis can not be excluded Seen by Cardiology, recommends treatment for infective endocarditis> daptomycin Has been getting IV vancomycin, ceftriaxone; seen by ID rec IV dapto (6 weeks) and ceftriaxone (until better and then 14 days po ceftin) repeat blood cultures from 02/16 09/16>MRSA Thrombocytopenia Likely due to acute viral illness/sepsis DIC, HLD ruled out platelets rebounding today hematology following - no further workup recommended DVT prophylaxis with SCD boots Full code Quality Stroke Does the patient have a stroke diagnosis?: No VTE Prior VTE?: No VTE Risk Level:: Medical - moderate - high VTE Device Contraindication: N/A - Device Ordered VTE Drug Contraindication: Treatment Not Indicated
[2025-02-20 11:10] VITALS: BP 131/67; PULSE 100; RESP 17; TEMP 36.6; O2SAT 97
[2025-02-20] MEDS: oxyCODONE HCl Immed Release 5 MG TABLET PO ×2 (11:47→17:43)
--- NOTE | 2025-02-20 12:02 | P.PNHO-ONC_ITS ---
Medical Summary - Medical Summary Date of Service: 02/20/25 Primary Care Provider: Vic Pompa, DO [employer]her Sealer Utilized?: No - Serbian Speaking Interval History Interval history: Trey Canales is a 29 year old female with past medical history significant for SLE, lupus nephritis, hypertension, anemia who presented to [facility] on 02/11/2025 with complaints of dyspnea, cough, fever, poor oral intake, nausea, vomiting and diarrhea. She was admitted to ICU for severe sepsis from right lobe pneumonia. Patient was also found to be in acute renal failure with a serum creatinine of 11.9. She was intubated briefly for acute respiratory failure on extubated on 02/15/2025. She was started on hemodialysis for acute renal failure and started on high-dose systemic glucocorticoids for possible lupus nephritis flare. She was found to have positive blood cultures for E coli, Klebsiella and MRSA. She was started on broad-spectrum antibiotics. She has developed gradually worsening anemia and thrombocytopenia. However, her hematocrit and platelets are rebounding and she is clearly improving. Review of Systems - Constitutional Reports anorexia - Eyes Reports itchy eyes - ENT Reports sore throat - Cardiovascular Reports shortness of breath with activity - Respiratory Reports dyspnea - Gastrointestinal Reports nausea - Neurologic Reports system reviewed and no additional complaints, except as documented, Reports numbness, Denies memory loss, Denies seizure-like activity [facility] Medical History: Medical History (Last Reviewed 02/18/25 @ 12:30 by Martha Shipman MD) Abnormal uterine bleeding Acute on chronic anemia Anemia Anxiety Depression Essential hypertension Fibromyalgia Hypertensive urgency Lupus Lupus nephritis Pericardial effusion Rash Family History: Family History (Last Reviewed 02/18/25 @ 12:30 by Martha Shipman MD) Mother Hypertension Type 2 diabetes mellitus Lupus Arthritis Maternal Grandmother Hypertension Type 2 diabetes mellitus Arthritis Family history: reviewed and not pertinent Surgical History: Surgical History (Last Reviewed 02/18/25 @ 12:30 by Martha Shipman MD) Hx of hernia repair Social History: Social History (Last Reviewed 02/18/25 @ 12:30 by Martha Shipman MD) Living Situation History: Household Members: Spouse Household Members: Children Housing: Apartment Do you presently have visiting nurse or other home services: No Alcohol History Details: 1. How often do you have a drink containing alcohol?: a. Never AUDIT-C Alcohol total score: 0 Currently Displaying Signs/Symptoms of Alcohol Withdrawal: No Tobacco History: Patient Tobacco Use Status: Current everyday Tobacco Tobacco use type: Cigarette Cigarette Packs Per Day: 0.5 Years Smoked: 7 Smoked in Last 30 Days: Yes Substance Use History: Use of substances other than those prescribed or required for medical reasons : Yes Substance Use Type: Marijuana Currently Displaying Signs/Symptoms of Drug Intoxication Withdrawal: No Domestic Abuse History: Have you been hit, kicked, punched, or otherwise hurt by someone within the past year? If so, by whom?: No Do you feel safe in your current relationship?: Yes Is there a partner from a previous relationship who is making you feel unsafe now?: No Are you made to feel afraid or neglected: No Advance Directives: Advance Directives: Yes Advance Directives on File: Yes Advance Directives Date on File: 04/03/22 Homicidal Assessment: Do you have a plan to hurt others: No Plan Nutrition Assessment: Recently lost weight without trying: No Patient : No : No Poor oral hygiene: No Occupation Assessmet: service: No Current occupational status: disabled Home Medications and Allergies Current Medications: Current Medications Acetaminophen (Acetaminophen 325 Mg Tablet) 650 mg PO Q6H PRN PRN Reason: Fever Last Admin: 02/19/25 10:18 Dose: 650 mg Albuterol/Ipratropium (Albuterol/Iprat 2.5/0.5mg 3 Ml Ampul.Neb) 3 ml INHALE RQ6H WHILE AWAKE PRN PRN Reason: shortness of breath/wheeze Ceftriaxone Sodium (Ceftriaxone Sodium 2 Gm Vial) 2 gm IVPUSH Q24H [facility] Last Admin: 02/20/25 09:38 Dose: 2 gm Guaifenesin/Codeine Phosphate (Guaifen/Codeine Sf 200/20/10ml 10 Ml Liquid) 5 ml PO Q6H PRN PRN Reason: Cough Last Admin: 02/20/25 09:37 Dose: 5 ml Heparin Sodium (Porcine) (Heparin Sodium,Porcine 5,000 Unit/Ml Vial) 5,000 unit SUBCUT Q12H [facility] Last Admin: 02/20/25 06:31 Dose: 5,000 unit Hydromorphone HCl (Hydromorphone Hcl 1 Mg/Ml Syringe) 1.25 mg IVPUSH Q3H PRN; Protocol PRN Reason: Pain, Severe (Pain Scale 7-10) Last Admin: 02/20/25 09:36 Dose: 1.25 mg Daptomycin 500 mg/ Sodium (Chloride) 60 mls @ 97.959 mls/hr IV Fr@1800 [facility] Last Infusion: 02/18/25 21:26 Dose: Infused Daptomycin 340 mg/ Sodium (Chloride) 56.8 mls @ 100 mls/hr IV MoWe@1800 [facility] Loperamide HCl (Loperamide Hcl 2 Mg Capsule) 4 mg PO Q6H PRN PRN Reason: Diarrhea Naloxone HCl (Naloxone Hcl 0.4 Mg/Ml Vial) 0.2 mg IVPUSH Q2M PRN PRN Reason: Excessive sedation or RR < 8 Omeprazole (Omeprazole 40 Mg Capsule.Dr) 40 mg PO BID@0630,1630 [facility] Last Admin: 02/20/25 06:34 Dose: 40 mg Oxycodone HCl (Oxycodone Hcl Immed Release 5 Mg Tablet) 5 mg PO Q4H PRN PRN Reason: Pain, Moderate(Pain Scale 4-6) Last Admin: 02/20/25 11:47 Dose: 5 mg Prednisone (Prednisone 20 Mg Tablet) 60 mg PO DAILY [facility] Last Admin: 02/20/25 07:54 Dose: 60 mg Sodium Chloride (0.9 % Sodium Chloride Flush 3 Ml Syringe) 3 ml IVFLUSH QSHIFT [facility] Last Admin: 02/20/25 09:08 Dose: 3 ml Allergies Allergy/AdvReac Type Severity Reaction Status Date / Time mycophenolate mofetil AdvReac Intermediate GI upset Verified 02/11/25 16:49 gabapentin AdvReac Unknown Hives Verified 02/11/25 16:49 Exam Vital signs: Vital Signs Temp 97.8 F 02/20/25 11:10 Pulse 100 02/20/25 11:10 Resp 17 02/20/25 11:10 BP 131/67 02/20/25 11:10 Pulse Ox 97 02/20/25 11:10 O2 Del Method Nasal Cannula 02/20/25 11:10 O2 Flow Rate 3 02/20/25 11:10 FiO2 33 02/18/25 07:18 Intake & Output 02/19/25 02/20/25 02/20/25 18:59 06:59 18:59 Intake Total 1630 / 2110 480 / 2110 Balance 1630 / 2110 480 / 2110 Intake: Intake, Oral Amount 1280 / 1760 480 / 1760 Intake (Blood Product) Amount 350 / 350 Red Blood Cells (E0336) Unit 0 / 0 [id number] Red Blood Cells (E0336) Unit 350 / 350 [id number] Other: Breakfast % Eaten 100% Lunch % Eaten 75% Eating (Feeding) Ability Independent Independent Number of Bowel Movements 2 Last Bowel Movement 02/19/25 Stool Bedside Commode Stool Amount Moderate Stool Color Brown Stool Consistency Frothy Weight 57.5 kg [place] Weight in Grams 21982 Weight 57.5 kg BMI result Body Mass Index 19.3 - Constitutional Present: no acute distress, chronically ill appearing - Routine HEENT Exam Head: Present: normal inspection - Routine Neck Exam Present: full ROM - Routine Respiratory Exam Present: decreased breath sounds, prolonged expiratory phase. Absent: stridor, wheezes - Routine Cardiovascular Exam Cardiovascular: Present: RRR, S1, S2 - Routine Abdominal Exam Present: diminished bowel sounds - Routine Extremities Exam Absent: pedal edema - Routine Skin Exam Present: intact - Routine Neurological Exam Present: alert, oriented X3 - Detailed Neurological Exam: Coma Scale Eye Opening: Spontaneous (4) Data - Labs CBC & Chem 7: 02/20/25 07:10 02/20/25 07:10 - Imaging Radiologist's impression: ITS Impressions Chest X-Ray 02/18/25 14:48 IMPRESSION: 1. Right central venous catheter in place, tip at the junction of the brachiocephalic veins within the superior SVC. 2. Extensive consolidative opacity throughout the right upper lung, with lesser consolidation right lower lung. Findings are worsening. Electronically signed by: Dutch Gutierrez MD 02/18/2025 04:02 PM EDT RP Assessment and Plan Patient Active problem list reviewed?: Yes (1) Bicytopenia Status: Acute Assessment and plan: 1. This is a 29-year-old woman with systemic lupus erythematosus, lupus nephritis who is currently admitted for sepsis, acute respiratory failure, bacterial pneumonia and acute renal failure necessitating hemodialysis. She was extubated on 02/15/25. She was found to have E coli and Klebsiella in blood. She has parainfluenza 3, MRSA which is now cleared. She is undergoing hemodialysis for acute lupus nephritis flare. She is on systemic steroids with prednisone. She developed anemia and thrombocytopenia and concern was raised for HLH or hemophagocytic lymphohistiocytosis. She does not meet any criteria for HLH. Her anemia is secondary to renal failure, platelets are improving. She does not have unexplained fever, lymphadenopathy, splenomegaly or hypofibrinogenemia. The degree of elevation of ferritin is very mild considering her ongoing issues. Ferritin is an acute phase reactant, for HLH this is usually in the range of 10,000. Overall, she is improving with current management. I do not recommend any further workup for her cytopenias or HLH. Thank you. (2) Thrombocytopenia Status: Acute Assessment and plan: No additional treatment is needed. She is recovering. Her hematoctit is 27 and the platelets are 195. - Time Spent With Patient Time Spent with Patient (in minutes): 15
--- NOTE | 2025-02-20 12:08 | P.PNCA_ITS ---
Subjective Subjective Date of Service: 02/20/25 Interval history: She has pain everywhere and nonspecific symptoms but nothing clearly cardiac. Review of Systems Review of Systems Yes all other systems are reviewed and are negative Constitutional: Reports as per HPI and Reports no additional constitutional complaints Eyes: Reports as per HPI and Denies no additional eye complaints Denies system reviewed and no additional complaints, except as documented and Reports as per HPI Cardiovascular: Reports as per HPI, Reports no additional cardiovascular complaints, Denies acrocyanosis, Denies cool extremities, Denies chest pain, Denies leg edema, Denies lightheadedness, Denies palpitations and Denies dyspnea Respiratory: Reports as per HPI, Denies no additional respiratory complaints and Denies dyspnea Gastrointestinal: Reports as per HPI and Denies no additional gastrointestinal complaints Genitourinary: Reports as per HPI Musculoskeletal: Reports no additional musculoskeletal complaints and Reports as per HPI Skin/Breast: Reports system reviewed and no additional complaints, except as docu Reports system reviewed and no additional complaints, except as documented and Reports as per HPI Psychiatric: Reports no additional psychiatric complaints and Reports as per HPI Endocrine: Reports no additional endocrine complaints, Reports as per HPI and Denies palpitations Hematologic/Lymphatic: Reports no additional hematologic/lymphatic complaints and Reports as per HPI Allergic/Immunologic: Reports no additional allergic/immunologic complaints and Reports as per HPI Physical Exam Vital Signs: Last Vital Signs Temp 97.8 F 02/20/25 11:10 Pulse 100 02/20/25 11:10 Resp 17 02/20/25 11:10 BP 131/67 02/20/25 11:10 Pulse Ox 97 02/20/25 11:10 O2 Del Method Nasal Cannula 02/20/25 11:10 O2 Flow Rate 3 02/20/25 11:10 FiO2 33 02/18/25 07:18 Oxygen Flow Rate 40 02/11/25 21:17 BMI result Body Mass Index 19.3 Const General: no acute distress, ill appearing and tired appearing Orientation/consciousness: patient oriented x3 HEENT Other: Unremarkable Head: Yes normal to inspection Neck Neck: Yes normal visual inspection Chest Chest palpation & inspection: normal inspection of the chest Resp Other: Few inspiratory crackles at base Cardio Palpation: normal PMI Heart sounds: S1 normal heart sound present, S2 normal heart sound present, no gallops, Murmur heart sound present systolic I/ and at the left sternal border and no rubs GI Palpation (GI): Soft to palpation Back/Spine/Pelvis Other: unremarkable Skin General skin exam: no rashes or lesions noted Neuro General: patient oriented x3 Extrem General: Yes normal to inspection Psych Mental Status: mental status grossly normal Objective Labs and Meds 02/20/25 07:10 02/20/25 07:10 Lab results: Laboratory Results - last 24 hr 02/11/25 02/19/25 02/19/25 20:51 07:59 12:21 WBC RBC Hgb Hct MCV MCH MCHC RDW Plt Count MPV Immature Gran % (Auto) Neut % (Auto) Lymph % (Auto) Simpson % (Auto) Eos % (Auto) Baso % (Auto) Lymph # (Auto) Simpson # (Auto) Eos # (Auto) Baso # (Auto) Abs Immat Gran (auto) Absolute Neuts (auto) Absolute Nucleated RBC Nucleated RBC % (auto) Smear Tech's Comments Hold Purple Top SEE NOTE Sodium Potassium 4.1 D Chloride Carbon Dioxide Anion Gap BUN Creatinine Estim Creat Clear Calc Estimated GFR Random Glucose Calcium Hold Yellow Top See Note Ur Strep pneumoniae Ag Not Detected Blood Type A Positive Antibody Screen NEGATIVE Crossmatch See Detail 02/20/25 07:10 WBC 26.7 H RBC 2.99 L D Hgb 9.0 L D Hct 27.3 L D MCV 91.3 MCH 30.1 MCHC 33.0 RDW 16.1 H Plt Count 195 D MPV 11.4 Immature Gran % (Auto) 1.8 H Neut % (Auto) 91.2 H Lymph % (Auto) 3.8 L Simpson % (Auto) 3.0 Eos % (Auto) 0.0 Baso % (Auto) 0.2 Lymph # (Auto) 1.0 L Simpson # (Auto) 0.8 Eos # (Auto) 0.0 Baso # (Auto) 0.1 Abs Immat Gran (auto) 0.48 H Absolute Neuts (auto) 24.3 H Absolute Nucleated RBC 0.040 H Nucleated RBC % (auto) 0.1 Smear Tech's Comments VERIFIED Hold Purple Top Sodium 131 L Potassium 3.8 Chloride 95 L Carbon Dioxide 17 L Anion Gap 23 H BUN 49 H Creatinine 5.00 H* Estim Creat Clear Calc 14.8 Estimated GFR 10 Random Glucose 78 Calcium 8.1 L Hold Yellow Top Ur Strep pneumoniae Ag Blood Type Antibody Screen Crossmatch Progress Note: A&P Assessment and plan (1) Bacteremia: Status: Acute (2) Infective endocarditis: Status: Acute (3) Systemic lupus erythematosus: Status: Acute (4) Acute renal failure (ARF): Status: Acute Plan In the recent echocardiogram, limited quality. Preserved LVEF at 55%. Possible tricuspid valve vegetation in the right ventricular aspect but could not be well visualized. There was only mild tricuspid regurgitation. Issue blood cultures are positive for E coli, Klebsiella, MRSA. In the follow-up blood cultures, 6/3- blood culture- one set positive for MRSA and the other negative. 6/4- blood culture -one set positive for MRSA in the other negative. Overall, many comorbidities including lupus, lupus nephritis, pneumonia, polymicrobial bacteremia, status post intubation, acute renal failure/hemodialysis, anemia, thrombocytopenia, bacteremia and suspected endocarditis. We will repeat another transthoracic echocardiogram tomorrow. She is a really poor candidate for invasive studies including transesophageal echocardiogram or cardiac surgery assessment. She will be at extremely high complications with any valvular intervention and hence most likely she will need to be managed only on antibiotics. On discussion with the hospitalist, she has been started on daptomycin and hopefully that can clear the cultures. We will follow up with you. Time Spent With Patient Time: Total time managing care of this patient today ____ minutes. Progress Note: Quality Stroke Does the patient have a stroke diagnosis?: No Procedures Date of Service Date of Service: 02/20/25
[2025-02-20 14:24] LABS: ANA Pattern 2 Nuclear, Speckled; Anti Nuclear Antibody Pattern Nuclear, Homogeneous; Anti Nuclear Antibody Screen POSITIVE (NEGATIVE)
[2025-02-20 15:51] VITALS: BP 136/75; PULSE 93; RESP 18; TEMP 36.2; O2SAT 99
[2025-02-20 19:44] VITALS: BP 129/81; PULSE 88; RESP 16; TEMP 36; O2SAT 100
[2025-02-20 23:43] VITALS: BP 140/85; PULSE 84; RESP 16; TEMP 36; O2SAT 100
--- NOTE | 2025-02-21 | ECG_ITS ---
Test Reason : tachycardia Blood Pressure : */* mmHG Vent. Rate : 122 BPM Atrial Rate : 122 BPM P-R Int : 134 ms QRS Dur : 92 ms QT Int : 340 ms P-R-T Axes : 54 51 47 degrees QTcB Int : 484 ms Sinus tachycardia Otherwise normal ECG When compared with ECG of 17-Feb-2025 11:30, ST elevation has replaced ST depression in Inferior leads Referred By: Josee Ferro Electronically Signed By: SANJIV MORIN MD
[2025-02-21] MEDS: HYDROmorphone HCl 1 MG/ML SYRINGE 1.25 MG IVPUSH ×8 (00:34→21:55)
[2025-02-21 03:25] VITALS: BP 155/92; PULSE 85; RESP 16; TEMP 36; O2SAT 99
[2025-02-21 05:44] VITALS: BMI 19.2
[2025-02-21] MEDS: Omeprazole 40 MG CAPSULE.DR PO ×2 (06:26→15:12)
[2025-02-21] MEDS: Heparin Sodium,Porcine 5,000 UNIT/ML VIAL 5000 UNIT SUBCUT ×2 (06:26→21:54)
[2025-02-21 07:04] VITALS: BP 143/74; PULSE 92; RESP 20; TEMP 36.2; O2SAT 98
[2025-02-21 07:57] LABS: Hematocrit 27.4 % (37.0-47.0); Hemoglobin 9.1 g/dl (12.0-16.0); Mean Corpuscular HGB Conc 33.2 g/dl (31.0-35.0); Mean Corpuscular Volume 90.4 fL (80.0-98.0); Mean Platelet Volume 10.5 fL (9.4-12.3); NRBC Pct Auto 0.5 /100WBC (0.0-0.2); Platelet Count 234 X10*3/uL (160-400); Red Blood Count 3.03 X10*6/uL (4.20-5.50); Red Cell Distribution Width 15.9 % (11.0-16.0); White Blood Count 16.5 X10*3/uL (4.8-10.8)
[2025-02-21 08:00] VITALS: O2SAT 100
[2025-02-21 08:11] LABS: Anion Gap 22 (12-20); Blood Urea Nitrogen 71 mg/dL (9-16); Calcium 7.9 mg/dL (8.4-10.2); Carbon Dioxide 16 mmol/L (22-29); Chloride 94 mmol/L (96-108); Creatinine Clr Calc Pharmacy 12.2; Estimated Glomerular Filt Rate 8; Glucose Random 79 mg/dL (60-115); Phosphorus 13.1 mg/dL (2.7-4.5); Potassium 3.6 mmol/L (3.3-5.1); Sodium 128 mmol/L (135-145)
--- NOTE | 2025-02-21 08:30 | HO.PM.IMPN ---
Subjective Subjective Date of Service: 02/21/25 Interval History: Follow up for respiratory failure, bacteremia, endocarditis, renal failure C/O of generalized body pain Cough Review of Systems Review of Systems: Yes all other systems are reviewed and are negative Constitutional Constitutional: Reports body ache(s), Denies chills and Denies fever(s) Cardiovascular Cardiovascular: Denies chest pain, Denies palpitations, Reports dyspnea and Reports dyspnea on exertion Respiratory Respiratory: Reports cough, Reports dyspnea and Reports dyspnea on exertion Gastrointestinal Gastrointestinal: Denies abdominal pain and Reports diarrhea Musculoskeletal Musculoskeletal: Reports myalgias Endocrine Endocrine: Denies palpitations Physical Exam Vital Signs: Vital Signs: Last Vital Signs Temp 97.2 F 02/21/25 07:04 Pulse 92 02/21/25 07:04 Resp 20 02/21/25 07:04 BP 143/74 H 02/21/25 07:04 Pulse Ox 98 02/21/25 07:04 O2 Del Method Nasal Cannula 02/21/25 07:04 O2 Flow Rate 3 02/21/25 07:04 FiO2 33 02/18/25 07:18 Oxygen Flow Rate 40 02/11/25 21:17 BMI result Body Mass Index 19.2 Const: General: no acute distress, acute distress and ill appearing Orientation/consciousness: patient oriented x3 Resp: Effort & Inspection: Actively coughing Auscultation: other (coarse through out, no crackles bilaterally) Cardio: Rate: regular rate Rhythm: regular rhythm Heart sounds: S1 normal heart sound present and S2 normal heart sound present Peripheral pulses: Peripheral pulses 2+ throughout GI: Inspection: Yes distended Palpation (GI): Firmness to palpation present (GI) Auscultation: normal bowel sounds Skin: General skin exam: no rashes or lesions noted Neuro: General: patient oriented x3 Cognition (Neuro): normal cognition Pupils: Normal pupillary reactivity/response: bilateral Objective Data Active Medications Acetaminophen (Acetaminophen 325 Mg Tablet) 650 mg PO Q6H PRN PRN Reason: Fever Last Admin: 02/19/25 10:18 Dose: 650 mg Documented By: TIFFANY Albuterol/Ipratropium (Albuterol/Iprat 2.5/0.5mg 3 Ml Ampul.Neb) 3 ml INHALE RQ6H WHILE AWAKE PRN PRN Reason: shortness of breath/wheeze Ceftriaxone Sodium (Ceftriaxone Sodium 2 Gm Vial) 2 gm IVPUSH Q24H [facility] Last Admin: 02/20/25 09:38 Dose: 2 gm Documented By: TIFFANY Guaifenesin/Codeine Phosphate (Guaifen/Codeine Sf 200/20/10ml 10 Ml Liquid) 5 ml PO Q6H PRN PRN Reason: Cough Last Admin: 02/20/25 15:47 Dose: 5 ml Documented By: TIFFANY Heparin Sodium (Porcine) (Heparin Sodium,Porcine 5,000 Unit/Ml Vial) 5,000 unit SUBCUT Q12H [facility] Last Admin: 02/21/25 06:26 Dose: 5,000 unit Documented By: DAISY-HERON Hydromorphone HCl (Hydromorphone Hcl 1 Mg/Ml Syringe) 1.25 mg IVPUSH Q3H PRN; Protocol PRN Reason: Pain, Severe (Pain Scale 7-10) Last Admin: 02/21/25 06:25 Dose: 1.25 mg Documented By: CHERYL Daptomycin 500 mg/ Sodium (Chloride) 60 mls @ 97.959 mls/hr IV Fr@1800 [facility] Last Infusion: 02/18/25 21:26 Dose: Infused Documented By: CHERYL Daptomycin 340 mg/ Sodium (Chloride) 56.8 mls @ 100 mls/hr IV MoWe@1800 [facility] Loperamide HCl (Loperamide Hcl 2 Mg Capsule) 4 mg PO Q6H PRN PRN Reason: Diarrhea Naloxone HCl (Naloxone Hcl 0.4 Mg/Ml Vial) 0.2 mg IVPUSH Q2M PRN PRN Reason: Excessive sedation or RR < 8 Omeprazole (Omeprazole 40 Mg Capsule.Dr) 40 mg PO BID@0630,1630 [facility] Last Admin: 02/21/25 06:26 Dose: 40 mg Documented By: CHERYL Oxycodone HCl (Oxycodone Hcl Immed Release 5 Mg Tablet) 5 mg PO Q4H PRN PRN Reason: Pain, Moderate(Pain Scale 4-6) Last Admin: 02/20/25 17:43 Dose: 5 mg Documented By: TIFFANY Prednisone (Prednisone 20 Mg Tablet) 60 mg PO DAILY [facility] Last Admin: 02/20/25 07:54 Dose: 60 mg Documented By: HO.CONND Sodium Chloride (0.9 % Sodium Chloride Flush 3 Ml Syringe) 3 ml IVFLUSH QSHIFT [facility] Last Admin: 02/20/25 21:42 Dose: 3 ml Documented By: CHERYL Labs 02/21/25 07:38 02/21/25 07:38 Labs: Laboratory Results - last 24 hr 02/11/25 02/21/25 20:37 07:38 MCV 90.4 MCH 30.0 MCHC 33.2 RDW 15.9 Plt Count 234 MPV 10.5 Absolute Nucleated RBC 0.080 H Nucleated RBC % (auto) 0.5 H Anion Gap 22 H Estim Creat Clear Calc 12.2 Estimated GFR 8 Random Glucose 79 Calcium 7.9 L Phosphorus 13.1 H REN Screen POSITIVE A REN Titer 1:320 H REN Titer 2 1:1280 H REN Pattern Nuclear, Homogeneous A REN Pattern 2 Nuclear, Speckled A Microbiology Microbiology Results: Microbiology 02/15/25 20:03 Blood Culture - Final Blood - Venous No growth after 5 days. Assessment and Plan (1) Lupus nephritis: Status: Acute Plan 29-year-old female with underlying lupus with lupus nephritis on 10 mg prednisone daily admitted on 02/11/2025 with dyspnea and hypoxia secondary to right-sided pneumonia with polymicrobial bacteremia requiring intubation and ventilatory support. Hospital course further complicated by acute renal failure requiring initiation of hemodialysis. Elevated by nephrology service with concern for possible lupus nephritis flare, started on high-dose systemic glucocorticoids. Extubated on 02/15/2025. Normocytic anemia due to possible Acute GI bleed ?Gastritis due to high-dose steroids (reported dark stools in ICU and stool heme occult +) Continue oral PPI seen by GI - no signs of overt bleeding, no indication for EGD at this time HH 02/19- 6.5/20.3, s/p tx 2 units PRBC HH improving today 9.1/27.4 Acute uncontrolled generalized Pain C/O of widespread pain Current on PRN Dilaudid 1.25 mg Q3H, Oxycodone 5mg Q4H, Tylenol 650 mg Q6H PRN Multimodal approach for pain reg Schedule Tylenol 975 Q6H, Added Gabapentin 100 mg Q8H [facility] Hypokalemia. Resolved Oral potassium Hyponatremia Sodium now 128- Probably dilutional Check BMP after dialysis discuss with nephrology Elevated blood pressures Previously Normotensive- ?related to pain Optimize pain regimen and reevaluate Sinus tachycardia- Resolved EKG reviewed by cardiology>no further work up recommended at this time Given persistent hypoxia, and tachycardia VQ scan ordered to rule out PE> possibility of pulmonary embolism can not be excluded Discussed with pulmonology, check venous Doppler ultrasound to lower extremities-negative for DVT Acute renal failure May be multifactorial due to [place] from tubular injury due to sepsis as well as possible active lupus nephritis Received high-dose steroids, transitioned to oral prednisone 02/17 BUN/Cr trending up 71/6.06 Currently on HD. Dialysis scheduled for today Nephrology following Plan for renal biopsy when clinically stable Acute respiratory failure with hypoxia due to pneumonia Status post extubation, remains on 3L of O2 Tested + for parainfluenza virus. mycoplasma IgG + and IgM negative, nonspecific per ID, no need for azithromycin Currently on daptomycin Severe sepsis due to Polymicrobial bacteremia and possible acute infective endocarditis . Sepsis resolved Blood cultures growing E coli, Klebsiella, MRSA Echo with concern for nondiagnostic, TV endocarditis can not be excluded Seen by Cardiology, recommends treatment for infective endocarditis> daptomycin> Recheck Echo today Has been getting IV vancomycin, ceftriaxone; seen by ID rec IV dapto (6 weeks) and ceftriaxone (until better and then 14 days po ceftin) Repeat blood cultures from 02/16 1/>MRSA Leukocytosis-Improving WBC downtrending- 29.1>26.7>16.5 Remains afebrile- monitor for fevers Daily CBC Thrombocytopenia- Resolved Likely due to acute viral illness/sepsis DIC, HLD ruled out Platelets rebounding today Hematology following - no further workup recommended DVT prophylaxis with SCD boots+ Heparin 5000 Units Q12H Full code Quality Stroke Does the patient have a stroke diagnosis?: No VTE Prior VTE?: No VTE Risk Level:: Medical - moderate - high VTE Device Contraindication: N/A - Device Ordered VTE Drug Contraindication: Treatment Not Indicated
--- NOTE | 2025-02-21 09:00 | P.PNNP_ITS ---
Subjective Subjective Date of Service: 02/21/25 Principal diagnosis: MRSA bacteremia Interval history: 29 y/o female with lupus, being followed for renal failure last HD on sunday 02/18 creatinine trending up from 5.00 on 02/18 to 6.06 on 02/21, GFR trending downward, 8 on 02/21 phosphorous 13.1 patient reports she has pain everywhere and fatigue, states this is ongoing. Denies other new symptoms. Physical Exam 2 Vital Signs: Vital Signs: Last Vital Signs Temp 98.3 F 02/21/25 11:02 Pulse 107 H 02/21/25 11:02 Resp 20 02/21/25 11:02 BP 154/80 H 02/21/25 11:02 Pulse Ox 98 02/21/25 11:02 O2 Del Method Nasal Cannula 02/21/25 11:02 O2 Flow Rate 3 02/21/25 11:02 FiO2 33 02/18/25 07:18 Oxygen Flow Rate 40 02/11/25 21:17 BMI result Body Mass Index 19.2 Const: General: no acute distress, alert and awake Resp: Effort & Inspection: normal respiratory effort and able to speak in complete sentences Auscultation: clear to auscultation bilaterally Cardio: Rate: regular rate Rhythm: regular rhythm Heart sounds: S1 normal heart sound present and S2 normal heart sound present GI: Palpation (GI): Soft to palpation and nontender Skin: Rashes: no rashes Extrem: General: No edema Objective Data Labs 02/21/25 07:38 02/21/25 07:38 Labs: Laboratory Results - last 24 hr 02/11/25 02/21/25 20:37 07:38 WBC 16.5 H RBC 3.03 L Hgb 9.1 L Hct 27.4 L MCV 90.4 MCH 30.0 MCHC 33.2 RDW 15.9 Plt Count 234 MPV 10.5 Absolute Nucleated RBC 0.080 H Nucleated RBC % (auto) 0.5 H Sodium 128 L Potassium 3.6 Chloride 94 L Carbon Dioxide 16 L Anion Gap 22 H BUN 71 H Creatinine 6.06 H* Estim Creat Clear Calc 12.2 Estimated GFR 8 Random Glucose 79 Calcium 7.9 L Phosphorus 13.1 H REN Screen POSITIVE A REN Titer 1:320 H REN Titer 2 1:1280 H REN Pattern Nuclear, Homogeneous A REN Pattern 2 Nuclear, Speckled A Microbiology Microbiology Results: Microbiology 02/15/25 20:03 Blood - Venous Blood Culture - Final No growth after 5 days. 02/16/25 16:36 Blood - Venous Blood Culture - Final Methicillin Res Staph Aureus 02/16/25 16:36 Blood - Venous Blood Culture - Preliminary No growth after 48 hours. 02/15/25 20:03 Blood - Venous Blood Culture - Final Methicillin Res Staph Aureus 02/14/25 10:51 Blood - Venous Blood Culture - Final Methicillin Res Staph Aureus 02/14/25 10:27 Blood - Venous Blood Culture - Final Methicillin Res Staph Aureus 02/12/25 09:59 Blood - Venous Blood Culture - Final Methicillin Res Staph Aureus 02/12/25 09:48 Blood - Venous Blood Culture - Final Methicillin Res Staph Aureus 02/11/25 17:44 Blood - Venous Blood Culture - Final Escherichia coli Klebsiella oxytoca 02/11/25 17:17 Blood - Venous Blood Culture - Final Escherichia coli Klebsiella oxytoca Procedures Date of Service Date of Service: 02/21/25 Assessment & Plan Assessment and plan (1) Bacteremia: Status: Acute (2) Acute renal failure (ARF): Status: Acute (3) Severe sepsis: Status: Acute (4) Bicytopenia: Status: Acute Plan KALEIGH likely due to tubular injury from sepsis; 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 has active lupus nephritis- low C4 with elevated REN titers; will need a renal biopsy once she is stable Given worsening renal function will get HD today order placed for tunneled line given ongoing need for HD Finished 500 mg of Methyl pred daily for 3 days Prednisone 60 mg daily and will need PCP prophylaxis Unclear whether she has lupus infiltration of lung with superimposed PNA Will hold any further immunosuppression for now given sepsis Await ID evaluation phosphorous 13.1, will start renvela H&H stable 9.1 & 27.4 calcium 7.9, PTH 439, will check vit D levels recommend daily electrolyte and renal function studies recommend regular blood pressure checks, I&O monitoring avoid nephrotoxins Continue supportive care Discussed with Dr Vicente Time Spent With Patient Time: Total time managing care of this patient today ____ minutes. Progress Note: Quality Stroke Does the patient have a stroke diagnosis?: No
[2025-02-21] MEDS: 0.9 % Sodium Chloride Flush 3 ML SYRINGE IVFLUSH ×3 (09:14→21:56)
[2025-02-21] MEDS: Gabapentin 100 MG CAPSULE PO ×3 (09:14→21:47)
[2025-02-21] MEDS: predniSONE 20 MG TABLET 60 MG PO (09:15)
[2025-02-21] MEDS: diphenhydrAMINE HCL 50 MG/ML VIAL 25 MG IVPUSH (09:15)
[2025-02-21] MEDS: cefTRIAXone sodium 2 GM VIAL IVPUSH (09:15)
--- NOTE | 2025-02-21 10:15 | P.CDIM_ITS ---
PROVIDER RESPONSE TEXT: To clarify, the appropriate diagnosis supported by the clinical indicators: Acute QUERY TEXT: PHYSICIAN'S DOCUMENTATION REQUEST Date of Query: 02/14/2025 08:21 AM EDT Patient Name: Trey Maharaj Admit Date: 02/11/2025 Dear William Mcnair MD, A review of the medical record indicates additional documentation may be needed. Please review below and update the documentation accordingly. Clinical Indicators: lactic acidosis LA 2.6 Clarify which of the following accurately represents the acuity of the lactic acidosis. Possible options might include: Acute Acute on chronic Compensated Chronic stable condition Remission Other (explain) Clinically unable to determine (explain) Thank you, Neetu Ho RN Use of terms such as suspected, likely, concern for, or probable (associated with a specific diagnosi s that is being evaluated, monitored, or treated as if it exists) are acceptable and can be coded in the inpatient se tting, when documented at the time of discharge. Please use your independent medical judgment in providing your response. THIS QUERY IS PART OF THE PERMANENT MEDICAL RECORD
[2025-02-21 11:02] VITALS: BP 154/80; PULSE 107; RESP 20; TEMP 36.8; O2SAT 98
--- NOTE | 2025-02-21 11:10 | PM.PNCARD ---
Subjective Subjective Date of Service: 02/21/25 Principal diagnosis: MRSA bacteremia Interval history: Patient still appears to be toxic. No fever episodes noted. Still appears to be short of breath and coughing a lot. Denies any chest pain. Repeat blood cultures are pending Review of Systems Review of Systems Yes all other systems are reviewed and are negative Constitutional: Reports as per HPI and Reports no additional constitutional complaints Eyes: Reports as per HPI and Denies no additional eye complaints Denies system reviewed and no additional complaints, except as documented and Reports as per HPI Cardiovascular: Reports as per HPI, Reports no additional cardiovascular complaints, Denies acrocyanosis, Denies cool extremities, Denies chest pain, Denies leg edema, Denies lightheadedness, Denies palpitations and Denies dyspnea Respiratory: Reports as per HPI, Denies no additional respiratory complaints and Denies dyspnea Gastrointestinal: Reports as per HPI and Denies no additional gastrointestinal complaints Genitourinary: Reports as per HPI Musculoskeletal: Reports no additional musculoskeletal complaints and Reports as per HPI Skin/Breast: Reports system reviewed and no additional complaints, except as docu Reports system reviewed and no additional complaints, except as documented and Reports as per HPI Psychiatric: Reports no additional psychiatric complaints and Reports as per HPI Endocrine: Reports no additional endocrine complaints, Reports as per HPI and Denies palpitations Hematologic/Lymphatic: Reports no additional hematologic/lymphatic complaints and Reports as per HPI Allergic/Immunologic: Reports no additional allergic/immunologic complaints and Reports as per HPI Physical Exam Vital Signs: Last Vital Signs Temp 98.3 F 02/21/25 11:02 Pulse 107 H 02/21/25 11:02 Resp 20 02/21/25 11:02 BP 154/80 H 02/21/25 11:02 Pulse Ox 98 02/21/25 11:02 O2 Del Method Nasal Cannula 02/21/25 11:02 O2 Flow Rate 3 02/21/25 11:02 FiO2 33 02/18/25 07:18 Oxygen Flow Rate 40 02/11/25 21:17 BMI result Body Mass Index 19.2 Const General: no acute distress, ill appearing and tired appearing Orientation/consciousness: patient oriented x3 HEENT Other: Unremarkable Head: Yes normal to inspection Neck Neck: Yes normal visual inspection Chest Chest palpation & inspection: normal inspection of the chest Resp Other: Few inspiratory crackles at base Cardio Palpation: normal PMI Heart sounds: S1 normal heart sound present, S2 normal heart sound present, no gallops, Murmur heart sound present systolic I/ and at the left sternal border and no rubs GI Palpation (GI): Soft to palpation Back/Spine/Pelvis Other: unremarkable Skin General skin exam: no rashes or lesions noted Neuro General: patient oriented x3 Extrem General: Yes normal to inspection Psych Mental Status: mental status grossly normal Objective Labs and Meds 02/21/25 07:38 02/21/25 07:38 Lab results: Laboratory Results - last 24 hr 02/11/25 02/21/25 20:37 07:38 WBC 16.5 H RBC 3.03 L Hgb 9.1 L Hct 27.4 L MCV 90.4 MCH 30.0 MCHC 33.2 RDW 15.9 Plt Count 234 MPV 10.5 Absolute Nucleated RBC 0.080 H Nucleated RBC % (auto) 0.5 H Sodium 128 L Potassium 3.6 Chloride 94 L Carbon Dioxide 16 L Anion Gap 22 H BUN 71 H Creatinine 6.06 H* Estim Creat Clear Calc 12.2 Estimated GFR 8 Random Glucose 79 Calcium 7.9 L Phosphorus 13.1 H REN Screen POSITIVE A REN Titer 1:320 H REN Titer 2 1:1280 H REN Pattern Nuclear, Homogeneous A REN Pattern 2 Nuclear, Speckled A Imaging Radiologist's impression: Impressions Venous Duplex 02/19/25 11:17 IMPRESSION: No evidence of deep venous thrombosis involving the bilateral lower extremities. Electronically signed by: Ghulam Sanchez MD 02/21/2025 07:08 AM EDT Progress Note: A&P Assessment and plan (1) Bacteremia: Status: Acute Assessment and Plan: Bacteremia with possible tricuspid valve vegetation. Repeat echo is pending. Repeat blood cultures are pending. At this point time she has a lot of acute issues including hyponatremia, acute kidney injury, electrolyte abnormalities. She also possibly as a pulmonary embolism based on the pulmonary perfusion study. Overall prognosis is guarded. Would continue with IV antibiotics. Repeat echocardiogram to assess for any worsening tricuspid valve pathology such as regurgitation. Continue treat underlying overall medical situation along with pneumonia as well as acidosis and acute renal injury. Will sign of the case and follow as need be. Time Spent With Patient Time: Total time managing care of this patient today ____ minutes. Progress Note: Quality Stroke Does the patient have a stroke diagnosis?: No Procedures Date of Service Date of Service: 02/21/25
[2025-02-21] MEDS: Sevelamer Carbonate Tablet 800 MG TABLET 1600 MG PO (12:08)
[2025-02-21] MEDS: Acetaminophen 325 MG TABLET 975 MG PO (12:08)
--- NOTE | 2025-02-21 14:11 | MHC.CM.PN ---
Addendum entered by Martha Berg 02/21/25 14:12: DISPO PENDING PT EVAL Original Note: PER MD ROUNDS, PT NOT MEDICALLY CLEARED, WILL LIKELY NEED PORT FOR HD. CM FOLLOWING FOR DC NEEDS
[2025-02-21 15:33] VITALS: BP 131/80; PULSE 92; RESP 18; TEMP 36.5; O2SAT 100
[2025-02-21 20:00] VITALS: BP 117/70; PULSE 122; RESP 16; TEMP 36.6; O2SAT 96
--- NOTE | 2025-02-21 20:32 | MHC.PIE ---
p; p 120-130's post h/d. note; low o2 sat? pt hand very cold from h/d, o2 sat now 100% after warming hands i; dr no notified. new order ekg now e; will cont to monitor
[2025-02-21] MEDS: DAPTOMYCIN IV (21:45)
[2025-02-21] MEDS: SODIUM CHLORIDE 0.9% IV (21:45)
[2025-02-21] MEDS: Sodium Bicarbonate 650 MG TABLET PO (21:47)
[2025-02-22] VITALS (7 sets, daily range): BP systolic 122–152; BP diastolic 56–81; PULSE 90–119; RESP 16–20; TEMP 36–36.7; O2SAT 96–100; BMI 18.6
[2025-02-22] MEDS: HYDROmorphone HCl 1 MG/ML SYRINGE 1.25 MG IVPUSH ×7 (00:38→21:08)
[2025-02-22] MEDS: Omeprazole 40 MG CAPSULE.DR PO ×2 (06:03→16:41)
--- NOTE | 2025-02-22 07:00 | CA_ITS ---
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 Normal LV systolic and diastolic function 2. Cardiac valvular Dopplers within normal limits 3. No clear evidence of vegetations on a left-sided valve with tricuspid and pulmonic valve not well visualized 4. No gross pericardial effusion Findings Left Ventricle Normal left ventricular size and systolic function. There is mildly increased left ventricular wall thickness. The visually estimated ejection fraction is between 55-60%. Spectral Doppler is indicative of a normal filling pattern. Right Ventricle Normal right ventricular cavity size. Atria Both atria are normal in size. Interatrial shunt cannot be excluded. Aortic Valve Normal aortic valve structure and function. There is no aortic valve stenosis. There is no aortic valve regurgitation. Mitral Valve Normal mitral valve structure and function. There is no mitral valve regurgitation. There is no mitral valve stenosis. Pulmonic Valve The pulmonic valve was not well visualized. Tricuspid Valve The tricuspid valve was not well visualized. Tricuspid regurgitation envelope is inadequate for calculation of right ventricular systolic pressure. Great Vessels All visible segments of the aorta are normal in size. The pulmonary artery was not well visualized. Venous The inferior vena cava is normal in size and collapses greater than 50% with inspiration. Pericardium/Pleural There is no evidence of pericardial effusion. Prior Study Comparison Changes noted compared to prior study dated: 02/14/2025. tricuspid valve is not well appreciated on this study and vegetation can not be entirely ruled out. Measurements 2D Linear Measurements IVSd: 1.26 0.6-0.9/0.6-1.0 cm LVIDd: 3.59 3.9-5.3/4.2-5.9 cm LVIDd Index: 2.14 2.4-3.2/2.2-3.1 cm/m2 LVIDs: 2.49 2.0-3.6 cm LVPWd: 1.21 0.7-1.1 cm LA Diam: 2.10 2.7-3.8/3.0-4.0 cm LAIDs Index: 1.25 1.5-2.3 cm/m2 LV Mass: 183.33 67-162/88-224 g LV Mass Index: 109.12 43-95/49-115 g/m2 LVOT Diam: 2.20 3.0+(-)1.3 cm Mitral Valve MV VTI: 0.25 MV Pk Didier: 1.03 MV Mn Didier: 0.64 MV Pk Grad: 4.00 MV Mn Grad: 2.00 MV Pk E: 0.99 MV PK A: 0.45 MV Decel Time: 178.00 E/A: 2.20 E'Lateral: 8.49 E'Medial: 9.57 E/E' Med: 10.30 E/E' Lat: 11.60 PHT: 52.00 MVA PHT: 4.23 MVA Continuity: 2.50 Decel [place]: 5.53 Aortic Valve AoV Pk Didier: 1.27 AoV Mn Didier: 0.89 AoV VTI: 0.21 AoV Pk Grad: 6.00 Aov Mn Grad: 4.00 JASPAL Cont.VTI: 3.08 LVOT LVOT Pk Didier: 0.95 LVOT Mn Didier: 0.66 LVOT VTI: 0.17 LVOT Pk Grad: 4.00 LVOT Mn Grad: 2.00 LVOT Diam: 2.20 LVOT Area: 3.80 Diastolic Function MV Pk E: 0.99 MV Pk A: 0.45 E/A: 2.20 E'Medial: 9.57 E/E' Med: 10.30 E' Laterial: 8.49 E/E' Lat: 11.60 Right Ventricle TAPSE (mm): 21.90 TVS' Didier: 15.20 Tricuspid Valve TR Pk Didier: 2.32 TR Pk Grad: 22.00 Great Vessels Aorta Sinus of Valsalva: 2.80 2.0-3.5 cm Ao Asc: 2.70 2.1-3.4 cm Pulmonary Valve PV Pk Didier: 1.31 Peak PV Grad: 7.00 Updated in Other Vendor System with Status of Final Trevor Moseley MD electronically signed on 02/22/2025 2:10:31 PM with status of Final
[2025-02-22 07:23] LABS: Hematocrit 29.7 % (37.0-47.0); Hemoglobin 9.8 g/dl (12.0-16.0); Mean Corpuscular Hemoglobin 29.9 pg (27.0-33.0); Mean Corpuscular Volume 90.5 fL (80.0-98.0); Mean Platelet Volume 10.9 fL (9.4-12.3); NRBC Pct Auto 0.7 /100WBC (0.0-0.2); Platelet Count 250 X10*3/uL (160-400); Red Blood Count 3.28 X10*6/uL (4.20-5.50); Red Cell Distribution Width 15.5 % (11.0-16.0); White Blood Count 12.3 X10*3/uL (4.8-10.8)
[2025-02-22 07:39] LABS: Anion Gap 21 (12-20); Blood Urea Nitrogen 41 mg/dL (9-16); Calcium 8.5 mg/dL (8.4-10.2); Carbon Dioxide 23 mmol/L (22-29); Chloride 92 mmol/L (96-108); Creatinine Clr Calc Pharmacy 16.7; Estimated Glomerular Filt Rate 12; Glucose Random 82 mg/dL (60-115); Potassium 3.4 mmol/L (3.3-5.1); Sodium 133 mmol/L (135-145)
[2025-02-22] MEDS: Heparin Sodium,Porcine 5,000 UNIT/ML VIAL 5000 UNIT SUBCUT ×2 (07:58→19:51)
[2025-02-22] MEDS: guaiFEN/Codeine SF 200/20/10ML 10 ML LIQUID 5 ML PO (07:59)
[2025-02-22] MEDS: cefTRIAXone sodium 2 GM VIAL IVPUSH (07:59)
[2025-02-22] MEDS: Acetaminophen 325 MG TABLET 975 MG PO ×3 (08:00→21:09)
[2025-02-22] MEDS: Sevelamer Carbonate Tablet 800 MG TABLET 1600 MG PO ×3 (08:00→16:41)
[2025-02-22] MEDS: predniSONE 20 MG TABLET 60 MG PO (08:00)
[2025-02-22] MEDS: Gabapentin 100 MG CAPSULE PO ×3 (08:00→19:51)
[2025-02-22] MEDS: Sodium Bicarbonate 650 MG TABLET PO ×2 (08:00→19:51)
[2025-02-22] MEDS: oxyCODONE HCl Immed Release 5 MG TABLET PO ×3 (08:01→19:50)
[2025-02-22] MEDS: 0.9 % Sodium Chloride Flush 3 ML SYRINGE IVFLUSH ×3 (08:01→19:52)
--- NOTE | 2025-02-22 09:10 | HO.PM.IMPN ---
Subjective Subjective Date of Service: 02/22/25 Interval History: Follow up for respiratory failure, bacteremia, endocarditis, renal failure Continues to endorse generalized body pain, improved from yesterday Pain more well controlled today. Review of Systems Review of Systems: Yes all other systems are reviewed and are negative Constitutional Constitutional: Reports body ache(s), Denies chills and Denies fever(s) Cardiovascular Cardiovascular: Reports cool extremities, Denies chest pain and Denies palpitations Respiratory Respiratory: Reports cough and Reports pain with cough Gastrointestinal Gastrointestinal: Denies abdominal pain Integumentary/Breasts Skin/Breast: Reports dry skin Endocrine Endocrine: Denies palpitations Physical Exam Vital Signs: Vital Signs: Last Vital Signs Temp 97.2 F 02/22/25 07:02 Pulse 96 02/22/25 07:02 Resp 20 02/22/25 07:02 BP 146/80 H 02/22/25 07:02 Pulse Ox 100 02/22/25 07:02 O2 Del Method Nasal Cannula 02/22/25 07:02 O2 Flow Rate 3 02/22/25 07:02 FiO2 33 02/18/25 07:18 Oxygen Flow Rate 3 02/21/25 08:00 BMI result Body Mass Index 18.6 Const: General: cooperative, comfortable, no acute distress, alert, awake, Physically active and well groomed Orientation/consciousness: patient oriented x3 Resp: Effort & Inspection: normal respiratory effort Auscultation: clear to auscultation bilaterally Cardio: Rate: regular rate and tachycardic Rhythm: regular rhythm Heart sounds: S1 normal heart sound present and S2 normal heart sound present Peripheral pulses: Peripheral pulses 2+ throughout GI: Inspection: Yes normal to inspection Palpation (GI): Soft to palpation and nontender Auscultation: normal bowel sounds Neuro: General: patient oriented x3 Objective Data Active Medications Acetaminophen (Acetaminophen 325 Mg Tablet) 975 mg PO Q6H [facility] Last Admin: 02/22/25 08:00 Dose: 975 mg Documented By: JAXSON Albuterol/Ipratropium (Albuterol/Iprat 2.5/0.5mg 3 Ml Ampul.Neb) 3 ml INHALE RQ6H WHILE AWAKE PRN PRN Reason: shortness of breath/wheeze Ceftriaxone Sodium (Ceftriaxone Sodium 2 Gm Vial) 2 gm IVPUSH Q24H [facility] [place] Last Admin: 02/22/25 07:59 Dose: 2 gm Documented By: JAXSON Diphenhydramine HCl (Diphenhydramine Hcl 50 Mg/Ml Vial) 25 mg IVPUSH Q6H PRN PRN Reason: allergy Last Admin: 02/21/25 09:15 Dose: 25 mg Documented By: BELKIS Gabapentin (Gabapentin 100 Mg Capsule) 100 mg PO TID [facility] [place] Last Admin: 02/22/25 08:00 Dose: 100 mg Documented By: JAXSON Guaifenesin/Codeine Phosphate (Guaifen/Codeine Sf 200/20/10ml 10 Ml Liquid) 5 ml PO Q6H PRN PRN Reason: Cough Last Admin: 02/22/25 07:59 Dose: 5 ml Documented By: JAXSON Heparin Sodium (Porcine) (Heparin Sodium,Porcine 5,000 Unit/Ml Vial) 5,000 unit SUBCUT BID@0800,2000 [facility] [place] Last Admin: 02/22/25 07:58 Dose: 5,000 unit Documented By: JAXSON Hydromorphone HCl (Hydromorphone Hcl 1 Mg/Ml Syringe) 1.25 mg IVPUSH Q3H PRN; Protocol PRN Reason: Pain, Severe (Pain Scale 7-10) Last Admin: 02/22/25 06:03 Dose: 1.25 mg Documented By: JESSICA Daptomycin 340 mg/ Sodium (Chloride) 56.8 mls @ 100 mls/hr IV MoWe@1999 [facility] [place] Last Infusion: 02/21/25 22:32 Dose: Infused Documented By: JESSICA Daptomycin 500 mg/ Sodium (Chloride) 60 mls @ 97.959 mls/hr IV Fr@1999 [facility] [place] Loperamide HCl (Loperamide Hcl 2 Mg Capsule) 4 mg PO Q6H PRN PRN Reason: Diarrhea Naloxone HCl (Naloxone Hcl 0.4 Mg/Ml Vial) 0.2 mg IVPUSH Q2M PRN PRN Reason: Excessive sedation or RR < 8 Omeprazole (Omeprazole 40 Mg Capsule.) 40 mg PO BID@0630,1630 [facility] [place] Last Admin: 02/22/25 06:03 Dose: 40 mg Documented By: JESSICA Oxycodone HCl (Oxycodone Hcl Immed Release 5 Mg Tablet) 5 mg PO Q4H PRN PRN Reason: Pain, Moderate(Pain Scale 4-6) Last Admin: 02/22/25 08:01 Dose: 5 mg Documented By: JAXSON Prednisone (Prednisone 20 Mg Tablet) 60 mg PO DAILY [facility] [place] Last Admin: 02/22/25 08:00 Dose: 60 mg Documented By: JAXSON Sevelamer Carbonate (Sevelamer Carbonate Tablet 800 Mg Tablet) 1,600 mg PO TIDWM [facility] [place] Last Admin: 02/22/25 08:00 Dose: 1,600 mg Documented By: JAXSON Sodium Bicarbonate (Sodium Bicarbonate 650 Mg Tablet) 650 mg PO BID [facility] [place] Last Admin: 02/22/25 08:00 Dose: 650 mg Documented By: JAXSON Sodium Chloride (0.9 % Sodium Chloride Flush 3 Ml Syringe) 3 ml IVFLUSH QSHIFT [facility] [place] Last Admin: 02/22/25 08:01 Dose: 3 ml Documented By: JAXSON Labs 02/22/25 06:55 02/22/25 06:55 Labs: Laboratory Results - last 24 hr 02/11/25 02/22/25 20:37 06:55 MCV 90.5 MCH 29.9 MCHC 33.0 RDW 15.5 Plt Count 250 MPV 10.9 Absolute Nucleated RBC 0.090 H Nucleated RBC % (auto) 0.7 H Anion Gap 21 H Estim Creat Clear Calc 16.7 Estimated GFR 12 Random Glucose 82 Calcium 8.5 D Phosphorus 8.0 H REN Titer 3 TNP REN Pattern 3 TNP Microbiology Microbiology Results: Microbiology 02/16/25 16:36 Blood Culture - Final Blood - Venous No growth after 5 days. 02/20/25 12:13 Blood Culture - Preliminary Blood - Arterial No growth after 24 hours. 02/20/25 12:13 Blood Culture - Preliminary Blood - Arterial No growth after 24 hours. Assessment and Plan (1) Lupus nephritis: Status: Acute Plan 29-year-old female with underlying lupus with lupus nephritis on 10 mg prednisone daily admitted on 02/11/2025 with dyspnea and hypoxia secondary to right-sided pneumonia with polymicrobial bacteremia requiring intubation and ventilatory support. Hospital course further complicated by acute renal failure requiring initiation of hemodialysis. Elevated by nephrology service with concern for possible lupus nephritis flare, started on high-dose systemic glucocorticoids. Extubated on 02/15/2025. Acute renal failure May be multifactorial due to KALEIGH from tubular injury due to sepsis as well as possible active lupus nephritis Received high-dose steroids, transitioned to oral prednisone 02/17 BUN/Cr improving with HD 71/6.06>41/4.28 Currently on HD. Dialysis scheduled for today Nephrology following Plan for renal biopsy when clinically stable plan to add permacath for o/p dialysis Normocytic anemia due to possible Acute GI bleed ?Gastritis due to high-dose steroids (reported dark stools in ICU and stool heme occult +) Continue oral PPI seen by GI - no signs of overt bleeding, no indication for EGD at this time HH stable Acute uncontrolled generalized Pain- Improving Multimodal approach for pain reg Schedule Tylenol 975 Q6H, Gabapentin 100 mg Q8H GERARDO, PRN Dilaudid 1.25 mg Q3H, Oxycodone 5mg Q4H, Hyponatremia-Improving Probably dilutional >improved with dialysis 128>133 Daily BMP Elevated blood pressures Previously Normotensive- ?related to pain Optimize pain regimen and reevaluate Hypokalemia. Resolved Oral potassium Acute respiratory failure with hypoxia due to pneumonia Status post extubation, remains on 3L of O2 Tested + for parainfluenza virus. Mycoplasma IgG + and IgM negative, nonspecific per ID, no need for azithromycin Currently on daptomycin Severe sepsis due to Polymicrobial bacteremia and possible acute infective endocarditis . Sepsis resolved Blood cultures growing E coli, Klebsiella, MRSA Echo with concern for nondiagnostic, TV endocarditis can not be excluded Seen by Cardiology, recommends treatment for infective endocarditis> daptomycin> Recheck Echo today Has been getting IV vancomycin, ceftriaxone; seen by ID rec IV dapto (6 weeks) and ceftriaxone (until better and then 14 days po ceftin) Repeat blood cultures from 02/16 09/16>MRSA Leukocytosis-Improving WBC downtrending-12.3 Remains afebrile- monitor for fevers Daily CBC Thrombocytopenia- Resolved Likely due to acute viral illness/sepsis DIC, HLD ruled out Platelets normal Hematology following - no further workup recommended Sinus tachycardia- Resolved EKG reviewed by cardiology>no further work up recommended at this time Given persistent hypoxia, and tachycardia VQ scan ordered to rule out PE> possibility of pulmonary embolism can not be excluded Discussed with pulmonology, check venous Doppler ultrasound to lower extremities-negative for DVT DVT prophylaxis with SCD boots+ Heparin 5000 Units Q12H Full code Quality Stroke Does the patient have a stroke diagnosis?: No VTE Prior VTE?: No VTE Risk Level:: Medical - moderate - high VTE Device Contraindication: N/A - Device Ordered VTE Drug Contraindication: Treatment Not Indicated
--- NOTE | 2025-02-22 11:14 | P.CONGS_ITS ---
<Statement entered by Danis Stewart MD - 02/22/25 12:32> I have seen and evaluated the patient and agree with history, findings, assessment and plan documented by Aggie Lay PA-c. Once renal function is stable would recommend CTA PE protocol. Suspect V/Q scan is a bit of an over read. Would like to avoid placing IVC filter in this young patient. Thank you for allowing us to assist in her care. If there are any questions or concerns please do not hesitate to contact us. History of Present Illness Consult details Consult date: 02/22/25 Narrative: We were consulted for Sukumar, for concerns of a possible PE, IVC Filter placement. She presented to the ER on 02/11 with 2d of nausea, vomiting, diarrhea, dyspnea, poor PO intake, sore throat and cough. She has a medical hx pertinent for lupus, nephritis, pleural effusions, acute on chronic anemia, anxiety, depression, and fibromyalgia. Her hospital course has been complicated with respiratory and renal failure, requiring intubation (extubated on 02/15) as well as requiring dialysis. She was found to have a possible PE on pulmonary perfusion imaging on 02/18. The pt does continue with shortness of breath; she continues on O2. She denies any CP. She has been r/o for DVT on 02/19 with a venous duplex US. She has been eating and drinking well. She states her breathing is ok. She has not been out of bed. Review of Systems 2 Constitutional: Constitutional: Reports as per HPI and Denies weakness ENT: Reports Normal hearing present and Denies dizziness Cardiovascular: Cardiovascular: Reports as per HPI, Denies chest pain, Denies chest pain at rest, Denies chest pain with activity, Denies dyspnea and Denies dyspnea on exertion Respiratory: Respiratory: Reports as per HPI, Denies cough, Denies dyspnea and Denies dyspnea on exertion Gastrointestinal: Gastrointestinal: Reports as per HPI, Denies abdominal pain, Denies nausea and Denies vomiting Musculoskeletal: Musculoskeletal: Denies numbness Integumentary/Breasts: Skin/Breast: Reports as per HPI, Denies erythema and Denies wounds Neurologic: Reports Normal hearing present, Denies dizziness, Denies numbness, Denies Sensory deficit (Neuro) and Denies weakness Psychiatric: Psychiatric: Reports no additional psychiatric complaints Endocrine: Endocrine: Reports no additional endocrine complaints PMFSH Past Medical History Medical History Lupus nephritis Pericardial effusion Essential hypertension Rash Acute on chronic anemia Abnormal uterine bleeding Hypertensive urgency Anemia Depression Anxiety Fibromyalgia Lupus Family History Family History Mother Hypertension Type 2 diabetes mellitus Lupus Arthritis Maternal Grandmother Hypertension Type 2 diabetes mellitus Arthritis Family history: reviewed and not pertinent Surgical History Surgical History Hx of hernia repair Social History Social History Household Members: Spouse and Children Housing: Apartment Do you presently have visiting nurse or other home services: No Alcohol intake: former Comment: achy-lupus exacerbation Patient Tobacco Use Status: Current everyday Tobacco user Tobacco use type: Cigarette Cigarette Packs Per Day: 0.5 Years Smoked: 7 Smoked in Last 30 Days: Yes Use of substances other than those prescribed or required for medical reasons: Yes Substance Use Type: Marijuana Currently Displaying Signs/Symptoms of Drug Intoxication Withdrawal: No Have you been hit, kicked, punched, or otherwise hurt by someone within the past year? If so, by whom?: No Do you feel safe in your current relationship?: Yes Is there a partner from a previous relationship who is making you feel unsafe now?: No Are you made to feel afraid or neglected: No Advance Directives: Yes Advance Directives on File: Yes Advance Directives Date on File: 04/03/22 Do you have a plan to hurt others: No Plan Recently lost weight without trying: No Patient : No : No Poor oral hygiene: No service: No Current occupational status: disabled Meds Allergies Allergy/AdvReac Type Severity Reaction Status Date / Time mycophenolate mofetil AdvReac Intermediate GI upset Verified 02/11/25 16:49 gabapentin AdvReac Unknown Hives Verified 02/11/25 16:49 Active Medications: Current Medications Acetaminophen (Acetaminophen 325 Mg Tablet) 975 mg PO Q6H GERARDO Last Admin: 02/22/25 08:00 Dose: 975 mg Albuterol/Ipratropium (Albuterol/Iprat 2.5/0.5mg 3 Ml Ampul.Neb) 3 ml INHALE RQ6H WHILE AWAKE PRN PRN Reason: shortness of breath/wheeze Calcitriol (Calcitriol 0.25 Mcg Capsule) 0.25 mcg PO DAILY [facility] Ceftriaxone Sodium (Ceftriaxone Sodium 2 Gm Vial) 2 gm IVPUSH Q24H [facility] Last Admin: 02/22/25 07:59 Dose: 2 gm Diphenhydramine HCl (Diphenhydramine Hcl 50 Mg/Ml Vial) 25 mg IVPUSH Q6H PRN PRN Reason: allergy Last Admin: 02/21/25 09:15 Dose: 25 mg Gabapentin (Gabapentin 100 Mg Capsule) 100 mg PO TID [facility] Last Admin: 02/22/25 08:00 Dose: 100 mg Guaifenesin/Codeine Phosphate (Guaifen/Codeine Sf 200/20/10ml 10 Ml Liquid) 5 ml PO Q6H PRN PRN Reason: Cough Last Admin: 02/22/25 07:59 Dose: 5 ml Heparin Sodium (Porcine) (Heparin Sodium,Porcine 5,000 Unit/Ml Vial) 5,000 unit SUBCUT BID@799,1999 [facility] Last Admin: 02/22/25 07:58 Dose: 5,000 unit Hydromorphone HCl (Hydromorphone Hcl 1 Mg/Ml Syringe) 1.25 mg IVPUSH Q3H PRN; Protocol PRN Reason: Pain, Severe (Pain Scale 7-10) Last Admin: 02/22/25 06:03 Dose: 1.25 mg Daptomycin 340 mg/ Sodium (Chloride) 56.8 mls @ 100 mls/hr IV MoWe@1999 [facility] Last Infusion: 02/21/25 22:32 Dose: Infused Daptomycin 500 mg/ Sodium (Chloride) 60 mls @ 97.959 mls/hr IV Fr@1999 [facility] Loperamide HCl (Loperamide Hcl 2 Mg Capsule) 4 mg PO Q6H PRN PRN Reason: Diarrhea Naloxone HCl (Naloxone Hcl 0.4 Mg/Ml Vial) 0.2 mg IVPUSH Q2M PRN PRN Reason: Excessive sedation or RR < 8 Omeprazole (Omeprazole 40 Mg Capsule.) 40 mg PO BID@0630,1630 [facility] Last Admin: 02/22/25 06:03 Dose: 40 mg Oxycodone HCl (Oxycodone Hcl Immed Release 5 Mg Tablet) 5 mg PO Q4H PRN PRN Reason: Pain, Moderate(Pain Scale 4-6) Last Admin: 02/22/25 08:01 Dose: 5 mg Prednisone (Prednisone 20 Mg Tablet) 60 mg PO DAILY [facility] Last Admin: 02/22/25 08:00 Dose: 60 mg Sevelamer Carbonate (Sevelamer Carbonate Tablet 800 Mg Tablet) 1,600 mg PO TIDWM [facility] Last Admin: 02/22/25 08:00 Dose: 1,600 mg Sodium Bicarbonate (Sodium Bicarbonate 650 Mg Tablet) 650 mg PO BID [facility] Last Admin: 02/22/25 08:00 Dose: 650 mg Sodium Chloride (0.9 % Sodium Chloride Flush 3 Ml Syringe) 3 ml IVFLUSH QSHIFT [facility] Last Admin: 02/22/25 08:01 Dose: 3 ml Physical Exam 2 Vital Signs: Vital Signs: Last Vital Signs Temp 97.3 F 02/22/25 10:58 Pulse 93 02/22/25 10:58 Resp 20 02/22/25 10:58 BP 143/81 H 02/22/25 10:58 Pulse Ox 100 02/22/25 10:58 O2 Del Method Nasal Cannula 02/22/25 10:58 O2 Flow Rate 3 02/22/25 10:58 FiO2 33 02/18/25 07:18 Oxygen Flow Rate 3 02/21/25 08:00 BMI result Body Mass Index 18.6 Const: General: comfortable and no acute distress O rientation/consciousness: patient oriented x3 HEENT: Ears: hearing grossly normal bilaterally Resp: Effort & Inspection: normal respiratory effort and able to speak in complete sentences Auscultation: clear to auscultation bilaterally Cardio: Rate: regular rate Rhythm: regular rhythm Heart sounds: S1 normal heart sound present and S2 normal heart sound present Bruits: no abdominal aortic bruits, no carotid bruits, no femoral bruits and no renal bruits GI: Palpation (GI): No Abdominal aortic bruit present Neuro: General: patient oriented x3 Cranial nerves: Yes Normal hearing present Sensory Exam: No Sensory deficit (Neuro) Results Labs 02/22/25 06:55 02/22/25 06:55 Labs: Abnormal lab results 02/22/25 Range/Units 06:55 WBC 12.3 H (4.8-10.8) X10*3/uL RBC 3.28 L (4.20-5.50) X10*6/uL Hgb 9.8 L (12.0-16.0) g/dl Hct 29.7 L (37.0-47.0) % Absolute Nucleated RBC 0.090 H (0.0-0.012) X10*3/uL Nucleated RBC % (auto) 0.7 H (0.0-0.2) /100WBC Sodium 133 L (135-145) mmol/L Chloride 92 L (96-108) mmol/L Anion Gap 21 H (12-20) BUN 41 H (9-16) mg/dL Creatinine 4.28 H* (0.5-1.4) mg/dL Phosphorus 8.0 H (2.7-4.5) mg/dL Short CBC 02/22/25 Range/Units 06:55 WBC 12.3 H (4.8-10.8) X10*3/uL Hgb 9.8 L (12.0-16.0) g/dl Hct 29.7 L (37.0-47.0) % Plt Count 250 (160-400) X10*3/uL BMP 02/22/25 06:55 Sodium 133 L Potassium 3.4 Chloride 92 L Carbon Dioxide 23 BUN 41 H Creatinine 4.28 H* Calcium 8.5 D Urine 02/11/25 Range/Units 20:51 Urine Color Dark Yellow Urine Appearance Cloudy Urine pH 5.0 (5.0-9.0) Ur Specific [place] >= 1.030 H (1.005-1.025) Urine Protein >=1000 (4+) H (Neg-Trace) mg/dL Urine Glucose (UA) Negative (Negative) mg/dL All other labs normal. Assessment and Plan (1) Pulmonary embolism: Qualifiers: Pulmonary embolism type: unspecified Chronicity: unspecified Acute cor pulmonale presence: unspecified Qualified Code(s): I26.99 - Other pulmonary embolism without acute cor pulmonale Status: Acute Plan We were consulted on Jilarry for concerns of findings of a possible PE. She has had a complicated hospital stay with resp and renal failure as well as bacteremia. She continues on O2. She has been negative for a DVT. At this point, there is no acute vascular surgical intervention. We do recommend, once stabilized with kidney function and respiratory status, to have a CTA/PE protocol done. We will continue to monitor. If there are any questions or concerns, please do not hesitate to reach out to us. Procedures Date of Service Date of Service: 02/22/25
--- NOTE | 2025-02-22 11:21 | P.CDIM_ITS ---
PROVIDER RESPONSE TEXT: To clarify, the appropriate diagnosis supported by the clinical indicators: Acute renal failure QUERY TEXT: PHYSICIAN'S DOCUMENTATION REQUEST Date of Query: 02/21/2025 10:57 AM EDT Patient Name: Trey Maharaj Admit Date: 02/11/2025 Dear Magnolia Garcia PROPERTY MANAGEMENT SUPERVISOR, A review of the medical record indicates additional documentation may be needed. Please review below and update the documentation accordingly. Clinical Indicators: shortness of breath, fatigue, generalized weakness, nausea KALEIGH likely due to tubular injury from sepsis per dialysis note 02/20/25 BUN 49, creatinine 5.00, eGFR 10 on 02/20/25 Has received hemodialysis Please clarify which of the following accurately represents the patient's renal status: Acute renal failure Acute renal failure with suspected ATN Acute renal failure with other pathology (medullary, papillary, or cortical necrosis) Other (explain) Clinically unable to determine (explain) Thank you, Neetu Ho RN Use of terms such as suspected, likely, concern for, or probable (associated with a specific diagnosi s that is being evaluated, monitored, or treated as if it exists) are acceptable and can be coded in the inpatient se tting, when documented at the time of discharge. Please use your independent medical judgment in providing your response. THIS QUERY IS PART OF THE PERMANENT MEDICAL RECORD
--- NOTE | 2025-02-22 13:10 | W.PM.DNNEP ---
Subjective Subjective Date of Service: 02/22/25 Principal diagnosis: MRSA bacteremia This patient was seen during dialysis. Interval history: 29 y/o female with lupus, being followed for renal failure (also with respiratory failure, endocarditis, bacteremia). last HD yesterday 02/22 creatinine 4.28 on 02/22, GFR 12 02/22, up from 8 02/21 phosphorous down to 8 from 13 serum CO2 23 02/22 up from 16 02/21 patient reports she has pain everywhere and fatigue, states this is ongoing, somewhat improved with pain medication today. Denies other new symptoms. Physical Exam Vital Signs: Vital Signs: Last Vital Signs Temp 97.3 F 02/22/25 10:58 Pulse 93 02/22/25 10:58 Resp 20 02/22/25 10:58 BP 143/81 H 02/22/25 10:58 Pulse Ox 100 02/22/25 10:58 O2 Del Method Nasal Cannula 02/22/25 10:58 O2 Flow Rate 3 02/22/25 10:58 FiO2 33 02/18/25 07:18 Oxygen Flow Rate 3 02/21/25 08:00 BMI result Body Mass Index 18.6 Const: General: no acute distress, alert and awake Resp: Effort & Inspection: normal respiratory effort and able to speak in complete sentences Auscultation: clear to auscultation bilaterally Cardio: Rate: regular rate Rhythm: regular rhythm Heart sounds: S1 normal heart sound present and S2 normal heart sound present GI: Palpation (GI): Soft to palpation and nontender Skin: Rashes: no rashes Extrem: General: No edema Assessment & Plan Assessment and plan (1) Bacteremia: Status: Acute (2) Acute renal failure (ARF): Status: Acute (3) Severe sepsis: Status: Acute (4) Bicytopenia: Status: Acute Plan KALEIGH likely due to tubular injury from sepsis; 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 has active lupus nephritis- low C4 with elevated REN titers; will need a renal biopsy once she is stable HD today to get patient on TTS schedule order placed for tunneled line given ongoing need for HD Unclear whether she has lupus infiltration of lung with superimposed PNA Continue prednisone 60mg PO daily for immunosuppression Finished 500 mg of Methyl pred daily for 3 days Prednisone 60 mg daily per ID has tricuspid valve endocarditis with MRSA, e coli bacteremia from urine source- IV daptomycin renally dosed for 6 weeks, IV ctx and switch to ceftin when able phosphorous improving, continue revnela H&H stable 9.1 & 27.4 calcium 8.5, PTH 439, vit D levels pending. started calcitriol 0.25mg daily recommend daily electrolyte and renal function studies recommend regular blood pressure checks, I&O monitoring avoid nephrotoxins Continue supportive care Discussed with Dr Vicente Time Spent With Patient Time: Total time managing care of this patient today ____ minutes. Procedures Date of Service Date of Service: 02/22/25
[2025-02-23] VITALS (7 sets, daily range): BP systolic 129–144; BP diastolic 71–86; PULSE 93–112; RESP 18–20; TEMP 36.2–37.2; O2SAT 98–100; BMI 18.4
[2025-02-23] MEDS: HYDROmorphone HCl 1 MG/ML SYRINGE 1.25 MG IVPUSH ×3 (00:10→06:12)
[2025-02-23] MEDS: Omeprazole 40 MG CAPSULE.DR PO ×2 (06:09→16:46)
[2025-02-23 07:17] LABS: Hematocrit 29.7 % (37.0-47.0); Hemoglobin 9.6 g/dl (12.0-16.0); Mean Corpuscular HGB Conc 32.3 g/dl (31.0-35.0); Mean Corpuscular Hemoglobin 29.8 pg (27.0-33.0); Mean Corpuscular Volume 92.2 fL (80.0-98.0); Mean Platelet Volume 10.6 fL (9.4-12.3); NRBC Pct Auto 0.3 /100WBC (0.0-0.2); Platelet Count 221 X10*3/uL (160-400); Red Blood Count 3.22 X10*6/uL (4.20-5.50); White Blood Count 11.5 X10*3/uL (4.8-10.8)
[2025-02-23 07:32] LABS: Anion Gap 18 (12-20); Blood Urea Nitrogen 31 mg/dL (9-16); Calcium 8.6 mg/dL (8.4-10.2); Carbon Dioxide 26 mmol/L (22-29); Chloride 95 mmol/L (96-108); Creatinine Clr Calc Pharmacy 20.7; Estimated Glomerular Filt Rate 16; Glucose Random 79 mg/dL (60-115); Potassium 3.4 mmol/L (3.3-5.1); Sodium 136 mmol/L (135-145)
--- NOTE | 2025-02-23 08:57 | HO.PM.IMPN ---
Subjective Subjective Date of Service: 02/23/25 Interval History: Follow up for respiratory failure, bacteremia, endocarditis, renal failure Continues to endorse pain to joints, lower extremities and ribs, improved from yesterday Pain more well controlled today. Ambulated with PT, OOB in recliner Review of Systems Review of Systems: Yes all other systems are reviewed and are negative Constitutional Constitutional: Reports body ache(s), Denies chills, Reports fatigue, Denies fever(s), Denies headache(s) and Reports weakness ENT Ears, Nose, Mouth, and Throat: Denies headache(s) Cardiovascular Cardiovascular: Denies chest pain and Denies palpitations Respiratory Respiratory: Reports cough and Reports pain with cough Gastrointestinal Gastrointestinal: Denies abdominal pain, Reports loose stools, Denies nausea and Denies vomiting Integumentary/Breasts Skin/Breast: Reports no additional skin complaints and Reports dry skin Neurologic Neurologic: Denies headache(s) and Reports weakness Endocrine Endocrine: Reports fatigue and Denies palpitations Physical Exam Vital Signs: Vital Signs: Last Vital Signs Temp 97.1 F 02/23/25 07:16 Pulse 106 H 02/23/25 08:19 Resp 18 02/23/25 07:16 BP 141/86 H 02/23/25 08:19 Pulse Ox 99 02/23/25 08:19 O2 Del Method Room Air 02/23/25 07:16 O2 Flow Rate 3 02/22/25 16:53 FiO2 33 02/18/25 07:18 Oxygen Flow Rate 3 02/21/25 08:00 BMI result Body Mass Index 18.4 Const: General: cooperative, comfortable, no acute distress, alert, awake and well groomed Orientation/consciousness: patient oriented x3 Resp: Effort & Inspection: normal respiratory effort and Actively coughing Auscultation: crackles on the right in the mid lung jones and in the upper lung jones Cardio: Rate: tachycardic Rhythm: regular rhythm Heart sounds: S1 normal heart sound present and S2 normal heart sound present Peripheral pulses: Peripheral pulses 2+ throughout GI: Inspection: Yes normal to inspection Palpation (GI): Soft to palpation and nontender Auscultation: normal bowel sounds Skin: General skin exam: no rashes or lesions noted and dry skin Neuro: General: patient oriented x3 and moves all extremities Objective Data Active Medications Acetaminophen (Acetaminophen 325 Mg Tablet) 975 mg PO Q6H GERARDO Last Admin: 02/23/25 04:39 Dose: Not Given Documented By: KB Non-Admin Reason: over the limit Albuterol/Ipratropium (Albuterol/Iprat 2.5/0.5mg 3 Ml Ampul.Neb) 3 ml INHALE RQ6H WHILE AWAKE PRN PRN Reason: shortness of breath/wheeze Calcitriol (Calcitriol 0.25 Mcg Capsule) 0.25 mcg PO DAILY [facility] Ceftriaxone Sodium (Ceftriaxone Sodium 2 Gm Vial) 2 gm IVPUSH Q24H [facility] Last Admin: 02/22/25 07:59 Dose: 2 gm Documented By: JAXSON Diphenhydramine HCl (Diphenhydramine Hcl 50 Mg/Ml Vial) 25 mg IVPUSH Q6H PRN PRN Reason: allergy Last Admin: 02/21/25 09:15 Dose: 25 mg Documented By: BELKIS Gabapentin (Gabapentin 100 Mg Capsule) 100 mg PO TID [facility] Last Admin: 02/22/25 19:51 Dose: 100 mg Documented By: KB Guaifenesin/Codeine Phosphate (Guaifen/Codeine Sf 200/20/10ml 10 Ml Liquid) 5 ml PO Q6H PRN PRN Reason: Cough Last Admin: 02/22/25 07:59 Dose: 5 ml Documented By: JAXSON Heparin Sodium (Porcine) (Heparin Sodium,Porcine 5,000 Unit/Ml Vial) 5,000 unit SUBCUT BID@799,1999 [facility] Last Admin: 02/22/25 19:51 Dose: 5,000 unit Documented By: KB Daptomycin 340 mg/ Sodium (Chloride) 56.8 mls @ 100 mls/hr IV MoWe@1999 [facility] Last Infusion: 02/21/25 22:32 Dose: Infused Documented By: JESSICA Daptomycin 500 mg/ Sodium (Chloride) 60 mls @ 97.959 mls/hr IV Fr@1999 [facility] Loperamide HCl (Loperamide Hcl 2 Mg Capsule) 4 mg PO Q6H PRN PRN Reason: Diarrhea Naloxone HCl (Naloxone Hcl 0.4 Mg/Ml Vial) 0.2 mg IVPUSH Q2M PRN PRN Reason: Excessive sedation or RR < 8 Omeprazole (Omeprazole 40 Mg Capsule.Dr) 40 mg PO BID@0630,1630 [facility] Last Admin: 02/23/25 06:09 Dose: 40 mg Documented By: KB Oxycodone HCl (Oxycodone Hcl Immed Release 5 Mg Tablet) 5 mg PO Q4H PRN PRN Reason: Pain, Moderate(Pain Scale 4-6) Last Admin: 02/22/25 19:50 Dose: 5 mg Documented By: KB Prednisone (Prednisone 20 Mg Tablet) 60 mg PO DAILY [facility] Last Admin: 02/22/25 08:00 Dose: 60 mg Documented By: JAXSON Sevelamer Carbonate (Sevelamer Carbonate Tablet 800 Mg Tablet) 1,600 mg PO TIDWM [facility] Last Admin: 02/22/25 16:41 Dose: 1,600 mg Documented By: JAXSON Sodium Bicarbonate (Sodium Bicarbonate 650 Mg Tablet) 650 mg PO BID [facility] Last Admin: 02/22/25 19:51 Dose: 650 mg Documented By: KB Sodium Chloride (0.9 % Sodium Chloride Flush 3 Ml Syringe) 3 ml IVFLUSH QSHIFT [facility] Last Admin: 02/22/25 19:52 Dose: 3 ml Documented By: KB Labs 02/23/25 06:08 02/23/25 06:08 Labs: Laboratory Results - last 24 hr 02/23/25 06:08 MCV 92.2 MCH 29.8 MCHC 32.3 RDW 16.0 Plt Count 221 MPV 10.6 Absolute Nucleated RBC 0.030 H Nucleated RBC % (auto) 0.3 H Anion Gap 18 Estim Creat Clear Calc 20.7 Estimated GFR 16 Random Glucose 79 Calcium 8.6 Microbiology Microbiology Results: Microbiology 02/20/25 12:13 Blood Culture - Preliminary Blood - Arterial No growth after 48 hours. 02/20/25 12:13 Blood Culture - Preliminary Blood - Arterial No growth after 48 hours. Assessment and Plan (1) Lupus hepatitis: Status: Acute Plan 29-year-old female with underlying lupus with lupus nephritis on 10 mg prednisone daily admitted on 02/11/2025 with dyspnea and hypoxia secondary to right-sided pneumonia with polymicrobial bacteremia requiring intubation and ventilatory support. Hospital course further complicated by acute renal failure requiring initiation of hemodialysis. Elevated by nephrology service with concern for possible lupus nephritis flare, started on high-dose systemic glucocorticoids. Extubated on 02/15/2025. Acute renal failure May be multifactorial due to KALEIGH from tubular injury due to sepsis as well as possible active lupus nephritis Received high-dose steroids, transitioned to oral prednisone 02/17 BUN/Cr improving with HD 41/4.28>31/3.40 Currently on HD. Nephrology following Plan for renal biopsy when clinically stable Plan to add permacath for outpatient dialysis Acute uncontrolled generalized Pain- Improving Multimodal approach for pain reg Schedule Tylenol 975 Q6H, Gabapentin 100 mg Q8H GERARDO, Oxycodone 5mg Q4H Plan to wean down narcotics Hyponatremia-Resolved Probably dilutional >improved with dialysis 128>133>136 Daily BMP Elevated blood pressures. Improving Optimize pain regimen and reevaluate Normocytic anemia due to possible Acute GI bleed ?Gastritis due to high-dose steroids (reported dark stools in ICU and stool heme occult +) Continue oral PPI Seen by GI>no signs of overt bleeding, no indication for EGD at this time HH stable Acute respiratory failure with hypoxia due to pneumonia Status post extubation, was on 3L of O2>weaned to room air Tested + for parainfluenza virus. Mycoplasma IgG + and IgM negative, nonspecific per ID, no need for azithromycin Currently on daptomycin Severe sepsis due to Polymicrobial bacteremia. Sepsis resolved Blood cultures growing E coli, Klebsiella, MRSA Seen by Cardiology, initially recommended treatment for infective endocarditis but Echo neg for vegetation 02/22/25 s/p IV vancomycin, ceftriaxone>seen by ID rec IV dapto (6 weeks). Completed 8 days of ceftriaxone will switch to 14 days po ceftin Repeat blood cultures from 02/16 09/16>MRSA Repeat Blood cultures 02/20>neg after 48hrs Leukocytosis-Improving WBC downtrending-12.3>11.5 Remains afebrile Thrombocytopenia- Resolved Likely due to acute viral illness/sepsis DIC, HLD ruled out Platelets normal Hematology following >no further workup recommended Sinus tachycardia- Resolved EKG reviewed by cardiology>no further work up recommended at this time Given persistent hypoxia, and tachycardia VQ scan ordered to rule out PE> possibility of pulmonary embolism can not be excluded Discussed with pulmonology, check venous Doppler ultrasound to lower extremities>negative for DVT DVT prophylaxis with SCD boots+ Heparin 5000 Units Q12H Full code Disposition. Transfer to med surg, PT recommended home with PT when medically clear Quality Stroke Does the patient have a stroke diagnosis?: No VTE Prior VTE?: No VTE Risk Level:: Medical - moderate - high VTE Device Contraindication: N/A - Device Ordered VTE Drug Contraindication: Treatment Not Indicated
[2025-02-23] MEDS: Acetaminophen 325 MG TABLET 975 MG PO ×3 (09:41→21:28)
[2025-02-23] MEDS: predniSONE 20 MG TABLET 60 MG PO (09:41)
[2025-02-23] MEDS: calcitrioL 0.25 MCG CAPSULE PO (09:41)
[2025-02-23] MEDS: Sevelamer Carbonate Tablet 800 MG TABLET 1600 MG PO ×3 (09:41→16:45)
[2025-02-23] MEDS: Heparin Sodium,Porcine 5,000 UNIT/ML VIAL 5000 UNIT SUBCUT ×2 (09:41→21:28)
[2025-02-23] MEDS: Gabapentin 100 MG CAPSULE PO ×3 (09:41→21:27)
[2025-02-23] MEDS: Sodium Bicarbonate 650 MG TABLET PO ×2 (09:41→21:27)
[2025-02-23] MEDS: cefTRIAXone sodium 2 GM VIAL IVPUSH (09:42)
[2025-02-23] MEDS: oxyCODONE HCl Immed Release 5 MG TABLET PO ×3 (09:42→21:29)
[2025-02-23] MEDS: 0.9 % Sodium Chloride Flush 3 ML SYRINGE IVFLUSH ×3 (09:42→21:42)
--- NOTE | 2025-02-23 10:32 | MHC.CM.PN ---
Addendum entered by Madiha Reyes 02/24/25 10:54: Per ROUNDS, Patient is having a biopsy on 02/28/25 and Nephrology is working on securing a HD spot in the community. CM will follow. Original Note: PT is recommending home with services; CM will continue to follow.
--- NOTE | 2025-02-23 12:29 | P.PNNP_ITS ---
Subjective Subjective Date of Service: 02/23/25 Principal diagnosis: MRSA bacteremia Interval history: 29 y/o female with lupus, being followed for renal failure las tHD 02/22 creatinine 3.4 post HD no urine output patient states she has continued pain but under better control today. She is up in the chair at bedside and states she walked a short distance with some help plan for tunneled HD cath placement today Physical Exam 2 Vital Signs: Vital Signs: Last Vital Signs Temp 98.9 F 02/23/25 11:02 Pulse 112 H 02/23/25 11:02 Resp 20 02/23/25 11:02 BP 129/71 02/23/25 11:02 Pulse Ox 99 02/23/25 11:02 O2 Del Method Room Air 02/23/25 11:02 O2 Flow Rate 3 02/22/25 16:53 FiO2 33 02/18/25 07:18 Oxygen Flow Rate 3 02/21/25 08:00 BMI result Body Mass Index 18.4 Const: General: no acute distress, alert and awake Resp: Effort & Inspection: normal respiratory effort and able to speak in complete sentences Auscultation: clear to auscultation bilaterally Cardio: Rate: regular rate Rhythm: regular rhythm Heart sounds: S1 normal heart sound present and S2 normal heart sound present GI: Palpation (GI): Soft to palpation and nontender Skin: Rashes: no rashes Extrem: General: No edema Objective Data Labs 02/23/25 06:08 02/23/25 06:08 Labs: Laboratory Results - last 24 hr 02/23/25 06:08 WBC 11.5 H RBC 3.22 L Hgb 9.6 L Hct 29.7 L MCV 92.2 MCH 29.8 MCHC 32.3 RDW 16.0 Plt Count 221 MPV 10.6 Absolute Nucleated RBC 0.030 H Nucleated RBC % (auto) 0.3 H Sodium 136 Potassium 3.4 Chloride 95 L Carbon Dioxide 26 Anion Gap 18 BUN 31 H Creatinine 3.40 H Estim Creat Clear Calc 20.7 Estimated GFR 16 Random Glucose 79 Calcium 8.6 Microbiology Microbiology Results: Microbiology 02/20/25 12:13 Blood - Arterial Blood Culture - Preliminary No growth after 48 hours. 02/20/25 12:13 Blood - Arterial Blood Culture - Preliminary No growth after 48 hours. 02/16/25 16:36 Blood - Venous Blood Culture - Final No growth after 5 days. 02/15/25 20:03 Blood - Venous Blood Culture - Final No growth after 5 days. 02/16/25 16:36 Blood - Venous Blood Culture - Final Methicillin Res Staph Aureus 02/15/25 20:03 Blood - Venous Blood Culture - Final Methicillin Res Staph Aureus 02/14/25 10:51 Blood - Venous Blood Culture - Final Methicillin Res Staph Aureus 02/14/25 10:27 Blood - Venous Blood Culture - Final Methicillin Res Staph Aureus 02/12/25 09:59 Blood - Venous Blood Culture - Final Methicillin Res Staph Aureus 02/12/25 09:48 Blood - Venous Blood Culture - Final Methicillin Res Staph Aureus 02/11/25 17:44 Blood - Venous Blood Culture - Final Escherichia coli Klebsiella oxytoca 02/11/25 17:17 Blood - Venous Blood Culture - Final Escherichia coli Klebsiella oxytoca Procedures Date of Service Date of Service: 02/23/25 Assessment & Plan Assessment and plan (1) Acute renal failure (ARF): Status: Acute (2) Systemic lupus erythematosus: Status: Acute Plan initial KALEIGH likely due to tubular injury from sepsis; 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 started calcitriol 0.25mg daily recommend daily electrolyte and renal function studies recommend regular blood pressure checks, I&O monitoring avoid nephrotoxins Continue supportive care Discussed with Dr Mcnair Time Spent With Patient Time: Total time managing care of this patient today ____ minutes. Progress Note: Quality Stroke Does the patient have a stroke diagnosis?: No
[2025-02-23] MEDS: SODIUM CHLORIDE 0.9% IV (21:29)
[2025-02-23] MEDS: DAPTOMYCIN IV (21:29)
[2025-02-23] MEDS: oxyCODONE HCl Immed Release 5 MG TABLET 10 MG PO (23:04)
[2025-02-24 03:09] VITALS: BP 141/91; PULSE 91; RESP 18; TEMP 36.3; O2SAT 98
[2025-02-24] MEDS: oxyCODONE HCl Immed Release 5 MG TABLET PO ×4 (03:13→22:10)
[2025-02-24] MEDS: Acetaminophen 325 MG TABLET 975 MG PO ×4 (03:13→22:09)
[2025-02-24 06:00] VITALS: BMI 18.5
[2025-02-24] MEDS: Omeprazole 40 MG CAPSULE.DR PO ×2 (06:10→16:23)
[2025-02-24 07:15] VITALS: BP 145/83; PULSE 84; RESP 18; TEMP 36.1; O2SAT 98
[2025-02-24 07:47] LABS: Hematocrit 28.4 % (37.0-47.0); Hemoglobin 9.3 g/dl (12.0-16.0); Mean Corpuscular HGB Conc 32.7 g/dl (31.0-35.0); Mean Corpuscular Hemoglobin 29.8 pg (27.0-33.0); Mean Platelet Volume 9.5 fL (9.4-12.3); NRBC Pct Auto 0.2 /100WBC (0.0-0.2); Platelet Count 174 X10*3/uL (160-400); Red Blood Count 3.12 X10*6/uL (4.20-5.50); Red Cell Distribution Width 16.3 % (11.0-16.0); White Blood Count 9.5 X10*3/uL (4.8-10.8)
[2025-02-24 07:56] LABS: Anion Gap 20 (12-20); Blood Urea Nitrogen 57 mg/dL (9-16); Calcium 8.7 mg/dL (8.4-10.2); Carbon Dioxide 20 mmol/L (22-29); Chloride 96 mmol/L (96-108); Glucose Random 80 mg/dL (60-115); Potassium 3.9 mmol/L (3.3-5.1); Sodium 132 mmol/L (135-145)
[2025-02-24 08:01] LABS: Creatinine Clr Calc Pharmacy 14.5; Estimated Glomerular Filt Rate 10
[2025-02-24] MEDS: predniSONE 20 MG TABLET 60 MG PO (09:19)
[2025-02-24] MEDS: Gabapentin 100 MG CAPSULE PO ×3 (09:19→19:36)
[2025-02-24] MEDS: Sodium Bicarbonate 650 MG TABLET PO ×2 (09:20→19:36)
[2025-02-24] MEDS: cefuroxime axetiL 500 MG TABLET PO ×2 (09:21→19:35)
[2025-02-24] MEDS: calcitrioL 0.25 MCG CAPSULE PO (09:21)
[2025-02-24] MEDS: 0.9 % Sodium Chloride Flush 3 ML SYRINGE IVFLUSH ×2 (09:29→19:43)
[2025-02-24] MEDS: Heparin Sodium,Porcine 5,000 UNIT/ML VIAL 5000 UNIT SUBCUT ×2 (09:30→19:44)
--- NOTE | 2025-02-24 10:44 | W.PM.DNNEP ---
Subjective Subjective Date of Service: 02/24/25 Principal diagnosis: MRSA bacteremia This patient was seen during dialysis. Interval history: 29 y/o female with lupus, being followed for renal failure receiving HD today creatinine 4.91 no urine output patient states she has continued pain, states worse today, remains all over. plan for tunneled HD cath placement- rescheduled for 02/25. Physical Exam Vital Signs: Vital Signs: Last Vital Signs Temp 96.9 F 02/24/25 07:15 Pulse 84 02/24/25 07:15 Resp 18 02/24/25 07:15 BP 145/83 H 02/24/25 07:15 Pulse Ox 98 02/24/25 07:15 O2 Del Method Room Air 02/24/25 07:15 O2 Flow Rate 3 02/22/25 16:53 FiO2 33 02/18/25 07:18 Oxygen Flow Rate 3 02/21/25 08:00 BMI result Body Mass Index 18.5 Const: General: no acute distress, alert and awake Resp: Effort & Inspection: normal respiratory effort and able to speak in complete sentences Auscultation: clear to auscultation bilaterally Cardio: Rate: regular rate Rhythm: regular rhythm Heart sounds: S1 normal heart sound present and S2 normal heart sound present GI: Palpation (GI): Soft to palpation and nontender Skin: Rashes: no rashes Extrem: General: No edema Assessment & Plan Assessment and plan (1) Acute renal failure (ARF): Status: Acute (2) Systemic lupus erythematosus: Status: Acute Plan initial KALEIGH likely due to tubular injury from sepsis; 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 patient now on HD TTS, will need continued outpatient dialysis, plan for tunneled HD catheter placement tomorrow. Will start process of setting up outpatient HD. Unclear whether she has lupus infiltration of lung with superimposed PNA Continue prednisone 60mg PO daily per ID has tricuspid valve endocarditis with MRSA, e coli bacteremia from urine source- IV daptomycin renally dosed for 6 weeks, IV ctx and switch to ceftin when able phosphorous improving, continue sevelamer H&H stable 9.1 & 27.4 calcium 8.5, PTH 439, vit D levels pending. started calcitriol 0.25mg daily recommend daily electrolyte and renal function studies recommend regular blood pressure checks, I&O monitoring avoid nephrotoxins Continue supportive care Discussed with Dr Vicente Time Spent With Patient Time: Total time managing care of this patient today ____ minutes. Procedures Date of Service Date of Service: 02/24/25
[2025-02-24 11:07] VITALS: BP 127/69; PULSE 119; RESP 19; TEMP 36.6; O2SAT 98
--- NOTE | 2025-02-24 12:31 | P.PNIM_ITS ---
Subjective Subjective Date of Service: 02/24/25 Interval History: seen and examined this morning while in dialysis follow up for bacteremia, respiratory failure, renal failure getting HD no sob, reporting she can't sit still in HD; still with generalized pain but overall improving Review of Systems Review of Systems: Yes all other systems are reviewed and are negative Constitutional Constitutional: Denies chills and Denies fever(s) Cardiovascular Cardiovascular: Denies chest pain, Denies palpitations and Denies dyspnea Respiratory Respiratory: Denies dyspnea Gastrointestinal Gastrointestinal: Denies abdominal pain, Denies nausea and Denies vomiting Endocrine Endocrine: Denies palpitations Physical Exam 2 Vital Signs: Vital Signs: Last Vital Signs Temp 97.9 F 02/24/25 11:07 Pulse 119 H 02/24/25 11:07 Resp 19 02/24/25 11:07 BP 127/69 02/24/25 11:07 Pulse Ox 98 02/24/25 11:07 O2 Del Method Room Air 02/24/25 11:07 O2 Flow Rate 3 02/22/25 16:53 FiO2 33 02/18/25 07:18 Oxygen Flow Rate 3 02/21/25 08:00 BMI result Body Mass Index 18.5 Const: General: cooperative, no acute distress, alert and awake Nutritional Appearance: average body habitus Orientation/consciousness: patient oriented x3 Resp: Effort & Inspection: normal respiratory effort, no respiratory distress and no use of accessory muscles Cardio: Rate: regular rate GI: Inspection: No distended Palpation (GI): Soft to palpation Neuro: General: patient oriented x3 Objective Data Active Medications Acetaminophen (Acetaminophen 325 Mg Tablet) 975 mg PO Q6H [facility] Last Admin: 02/24/25 09:19 Dose: 975 mg Documented By: HAMILTON Albuterol/Ipratropium (Albuterol/Iprat 2.5/0.5mg 3 Ml Ampul.Neb) 3 ml INHALE RQ6H WHILE AWAKE PRN PRN Reason: shortness of breath/wheeze Calcitriol (Calcitriol 0.25 Mcg Capsule) 0.25 mcg PO DAILY [facility] Last Admin: 02/24/25 09:21 Dose: 0.25 mcg Documented By: HAMILTON Cefuroxime Axetil (Cefuroxime Axetil 500 Mg Tablet) 500 mg PO Q12H [facility] Stop: 03/10/25 08:59 Last Admin: 02/24/25 09:21 Dose: 500 mg Documented By: HAMILTON Diphenhydramine HCl (Diphenhydramine Hcl 50 Mg/Ml Vial) 25 mg IVPUSH Q6H PRN PRN Reason: allergy Last Admin: 02/21/25 09:15 Dose: 25 mg Documented By: BELKIS Gabapentin (Gabapentin 100 Mg Capsule) 100 mg PO TID [facility] Last Admin: 02/24/25 09:19 Dose: 100 mg Documented By: HAMILTON Heparin Sodium (Porcine) (Heparin Sodium,Porcine 5,000 Unit/Ml Vial) 5,000 unit SUBCUT BID@0800,1999 [facility] Last Admin: 02/24/25 09:30 Dose: 5,000 unit Documented By: HAMILTON Daptomycin 340 mg/ Sodium (Chloride) 56.8 mls @ 100 mls/hr IV MoWe@1999 [facility] Last Infusion: 02/23/25 22:26 Dose: Infused Documented By: CHERYL Daptomycin 500 mg/ Sodium (Chloride) 60 mls @ 97.959 mls/hr IV Fr@1999 [facility] Loperamide HCl (Loperamide Hcl 2 Mg Capsule) 4 mg PO Q6H PRN PRN Reason: Diarrhea Naloxone HCl (Naloxone Hcl 0.4 Mg/Ml Vial) 0.2 mg IVPUSH Q2M PRN PRN Reason: Excessive sedation or RR < 8 Omeprazole (Omeprazole 40 Mg Capsule.Dr) 40 mg PO BID@0630,1630 [facility] Last Admin: 02/24/25 06:10 Dose: 40 mg Documented By: CHERYL Oxycodone HCl (Oxycodone Hcl Immed Release 5 Mg Tablet) 5 mg PO Q4H PRN PRN Reason: Pain, Moderate(Pain Scale 4-6) Last Admin: 02/24/25 09:20 Dose: 5 mg Documented By: HAMILTON Prednisone (Prednisone 20 Mg Tablet) 60 mg PO DAILY [facility] Last Admin: 02/24/25 09:19 Dose: 60 mg Documented By: HAMILTON Sevelamer Carbonate (Sevelamer Carbonate Tablet 800 Mg Tablet) 1,600 mg PO TIDWM [facility] Last Admin: 02/24/25 09:31 Dose: Not Given Documented By: HO.PHANLYM Non-Admin Reason: minimal PO this AM. pt refused Sodium Bicarbonate (Sodium Bicarbonate 650 Mg Tablet) 650 mg PO BID [facility] Last Admin: 02/24/25 09:20 Dose: 650 mg Documented By: HAMILTON Sodium Chloride (0.9 % Sodium Chloride Flush 3 Ml Syringe) 3 ml IVFLUSH QSHIFT [facility] Last Admin: 02/24/25 09:29 Dose: 3 ml Documented By: HAMILTON Labs 02/24/25 07:04 02/24/25 07:04 Labs: Laboratory Results - last 24 hr 02/19/25 02/24/25 07:59 07:04 MCV 91.0 MCH 29.8 MCHC 32.7 RDW 16.3 H Plt Count 174 MPV 9.5 Absolute Nucleated RBC 0.020 H Nucleated RBC % (auto) 0.2 Anion Gap 20 Estim Creat Clear Calc 14.5 Estimated GFR 10 Random Glucose 80 Calcium 8.7 Crossmatch See Detail Assessment and Plan (1) Bacteremia: Status: Acute (2) Acute hypoxic respiratory failure: Status: Acute (3) Right lower lobe pneumonia: Status: Acute (4) Severe sepsis: Status: Acute Plan 29-year-old female with underlying lupus with lupus nephritis on 10 mg prednisone daily admitted on 02/11/2025 with dyspnea and hypoxia secondary to right-sided pneumonia with polymicrobial bacteremia requiring intubation and ventilatory support. Hospital course further complicated by acute renal failure requiring initiation of hemodialysis. Elevated by nephrology service with concern for possible lupus nephritis flare, started on high-dose systemic glucocorticoids. Extubated on 02/15/2025. Acute renal failure May be multifactorial due to KALEIGH from tubular injury due to sepsis as well as possible active lupus nephritis requiring initiation of HD Received high-dose steroids, transitioned to oral prednisone 02/17 Nephrology following continue HD, calcitriol, renvela, sodium bicarb plan for permcath 02/25, NPO at midnight (hold am dose of heparin) Plan for renal biopsy, scheduled for Friday (hold heparin Friday) Acute uncontrolled generalized Pain- Improving Multimodal approach for pain reg Schedule Tylenol 975 Q6H, Gabapentin, Oxycodone 5mg Q4H IV narcotics stopped 02/23 but with increase in pain today, will resume at lower dose and wean daily Hyponatremia-Resolved Probably dilutional >improved with dialysis Elevated blood pressures. Improving Bp stable Normocytic anemia due to possible Acute GI bleed ?Gastritis due to high-dose steroids (reported dark stools in ICU and stool heme occult +) Continue oral PPI Seen by GI>no signs of overt bleeding, no indication for EGD at this time HH stable Acute respiratory failure with hypoxia due to pneumonia Status post extubation, required HFNC, now weaned to room air Tested + for parainfluenza virus. Mycoplasma IgG + and IgM negative, nonspecific per ID, no need for azithromycin Currently on daptomycin Severe sepsis due to Polymicrobial bacteremia. Sepsis resolved Blood cultures growing E coli, Klebsiella, MRSA Seen by Cardiology, initially recommended treatment for infective endocarditis but Echo neg for vegetation 02/22/25 s/p IV vancomycin, ceftriaxone>seen by ID rec IV dapto (6 weeks). Completed 8 days of ceftriaxone will switch to 14 days po ceftin Repeat blood cultures from 02/16 09/16 MRSA Blood cultures 02/20 neg after 48hrs Thrombocytopenia- Resolved Likely due to acute viral illness/sepsis DIC, HLH ruled out Platelets normal Hematology following >no further workup recommended Sinus tachycardia- Resolved EKG reviewed by cardiology>no further work up recommended at this time Given persistent hypoxia, and tachycardia VQ scan ordered to rule out PE> possibility of pulmonary embolism can not be excluded Discussed with pulmonology, check venous Doppler ultrasound to lower extremities>negative for DVT DVT prophylaxis with SCD boots+ Heparin 5000 Units Q12H Full code Disposition. PT recommended home with PT when medically clear Quality Stroke Does the patient have a stroke diagnosis?: No VTE Prior VTE?: No VTE Risk Level:: Medical - moderate - high VTE Device Contraindication: N/A - Device Ordered VTE Drug Contraindication: Treatment Not Indicated
[2025-02-24] MEDS: Sevelamer Carbonate Tablet 800 MG TABLET 1600 MG PO ×2 (12:34→16:27)
[2025-02-24] MEDS: HYDROmorphone HCl 0.5 MG/0.5 ML SYRINGE 0.25 MG IVPUSH ×2 (13:20→19:32)
[2025-02-24 15:31] VITALS: BP 140/82; PULSE 100; RESP 18; TEMP 36.2; O2SAT 96
[2025-02-24 19:54] VITALS: BP 137/90; PULSE 105; RESP 18; TEMP 37.2; O2SAT 100
[2025-02-25] VITALS (25 sets, daily range): BP systolic 135–166; BP diastolic 62–104; PULSE 85–116; RESP 13–20; TEMP 36.3–36.7; O2SAT 95–100; BMI 18.7
[2025-02-25] MEDS: HYDROmorphone HCl 0.5 MG/0.5 ML SYRINGE 0.25 MG IVPUSH ×4 (01:48→20:32)
[2025-02-25] MEDS: Acetaminophen 325 MG TABLET 975 MG PO ×3 (03:47→20:18)
[2025-02-25] MEDS: oxyCODONE HCl Immed Release 5 MG TABLET PO ×4 (03:47→23:07)
[2025-02-25 07:10] LABS: Anion Gap 15 (12-20); Blood Urea Nitrogen 46 mg/dL (9-16); Calcium 8.6 mg/dL (8.4-10.2); Carbon Dioxide 24 mmol/L (22-29); Chloride 99 mmol/L (96-108); Creatinine Clr Calc Pharmacy 18.7; Estimated Glomerular Filt Rate 14; Glucose Random 79 mg/dL (60-115); Potassium 3.9 mmol/L (3.3-5.1); Sodium 134 mmol/L (135-145)
[2025-02-25] MEDS: Sodium Bicarbonate 650 MG TABLET PO ×2 (08:09→20:18)
[2025-02-25] MEDS: Gabapentin 100 MG CAPSULE PO ×3 (08:10→20:19)
[2025-02-25] MEDS: calcitrioL 0.25 MCG CAPSULE PO (08:10)
[2025-02-25] MEDS: cefuroxime axetiL 500 MG TABLET PO ×2 (08:10→20:18)
[2025-02-25] MEDS: predniSONE 20 MG TABLET 60 MG PO (08:10)
[2025-02-25] MEDS: 0.9 % Sodium Chloride Flush 3 ML SYRINGE IVFLUSH ×2 (08:13→16:22)
--- NOTE | 2025-02-25 08:30 | P.PNNP_ITS ---
Subjective Subjective Date of Service: 02/25/25 Principal diagnosis: MRSA bacteremia Interval history: 29 y/o female with lupus, being followed for renal failure HD TTS no urine output patient states she has continued widespread pain in her joints. plan for tunneled HD cath placement today Physical Exam 2 Vital Signs: Vital Signs: Last Vital Signs Temp 98.0 F 02/25/25 12:10 Pulse 96 02/25/25 12:10 Resp 16 02/25/25 12:10 BP 148/93 H 02/25/25 12:10 Pulse Ox 100 02/25/25 12:10 O2 Del Method Room Air 02/25/25 12:10 O2 Flow Rate 2 02/25/25 11:50 FiO2 33 02/18/25 07:18 Oxygen Flow Rate 3 02/21/25 08:00 BMI result Body Mass Index 18.7 Const: General: no acute distress, alert and awake Resp: Effort & Inspection: normal respiratory effort and able to speak in complete sentences Auscultation: clear to auscultation bilaterally Cardio: Rate: regular rate Rhythm: regular rhythm Heart sounds: S1 normal heart sound present and S2 normal heart sound present GI: Palpation (GI): Soft to palpation and nontender Skin: Rashes: no rashes Extrem: General: No edema Objective Data Labs 02/25/25 12:48 02/25/25 06:46 Labs: Laboratory Results - last 24 hr 02/25/25 06:46 Hold Purple Top SEE NOTE Sodium 134 L Potassium 3.9 Chloride 99 Carbon Dioxide 24 Anion Gap 15 BUN 46 H Creatinine 3.82 H Estim Creat Clear Calc 18.7 Estimated GFR 14 Random Glucose 79 Calcium 8.6 Microbiology Microbiology Results: Microbiology 02/20/25 12:13 Blood - Arterial Blood Culture - Preliminary No growth after 48 hours. 02/20/25 12:13 Blood - Arterial Blood Culture - Preliminary No growth after 48 hours. 02/16/25 16:36 Blood - Venous Blood Culture - Final No growth after 5 days. 02/15/25 20:03 Blood - Venous Blood Culture - Final No growth after 5 days. 02/16/25 16:36 Blood - Venous Blood Culture - Final Methicillin Res Staph Aureus 02/15/25 20:03 Blood - Venous Blood Culture - Final Methicillin Res Staph Aureus 02/14/25 10:51 Blood - Venous Blood Culture - Final Methicillin Res Staph Aureus 02/14/25 10:27 Blood - Venous Blood Culture - Final Methicillin Res Staph Aureus 02/12/25 09:59 Blood - Venous Blood Culture - Final Methicillin Res Staph Aureus 02/12/25 09:48 Blood - Venous Blood Culture - Final Methicillin Res Staph Aureus 02/11/25 17:44 Blood - Venous Blood Culture - Final Escherichia coli Klebsiella oxytoca 02/11/25 17:17 Blood - Venous Blood Culture - Final Escherichia coli Klebsiella oxytoca Procedures Date of Service Date of Service: 02/25/25 Assessment & Plan Assessment and plan (1) Acute renal failure (ARF): Status: Acute (2) Systemic lupus erythematosus: Status: Acute Plan initial K[place]IGH likely due to tubular injury from sepsis; 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 patient now on HD TTS, will need continued outpatient dialysis, plan for tunneled HD catheter placement tomorrow. outpatient HD referral sent. Unclear whether she has lupus infiltration of lung with superimposed PNA Continue prednisone 60mg PO daily per ID has tricuspid valve endocarditis with MRSA, e coli bacteremia from urine source- IV daptomycin renally dosed for 6 weeks, IV ctx and switch to ceftin when able phosphorous improving, continue sevelamer H&H stable 9.3 & 28.4 calcium 8.5, PTH 439, vit D levels pending. continue calcitriol 0.25mg daily recommend daily electrolyte and renal function studies recommend regular blood pressure checks, I&O monitoring avoid nephrotoxins Continue supportive care Discussed with Dr Mcnair Time Spent With Patient Time: Total time managing care of this patient today ____ minutes. Progress Note: Quality Stroke Does the patient have a stroke diagnosis?: No
--- NOTE | 2025-02-25 10:37 | MHC.CM.PN ---
Per ROUNDS discussion, Patient is not yet medically cleared for dc (Getting perma-cath for new HD today); PT is recommending home with services and CM will continue to follow.
[2025-02-25] MEDS: Midazolam HCl 2 MG/2 ML VIAL 0.5 MG IVPUSH ×2 (11:25→11:35)
[2025-02-25] MEDS: fentaNYL citrate/PF 100 MCG/2 ML VIAL 25 MCG IVPUSH ×2 (11:26→11:35)
--- NOTE | 2025-02-25 12:13 | P.PNIM_ITS ---
Subjective Subjective Date of Service: 02/25/25 Interval History: seen and examined this morning follow up for renal failure, respiratory failure remains on room air, no sob having ongoing generalized pain plan down to IR for permcath today - called by IR pt has right jugular vein clot Review of Systems Review of Systems: Yes all other systems are reviewed and are negative Constitutional Constitutional: Denies chills and Denies fever(s) Cardiovascular Cardiovascular: Denies chest pain, Denies palpitations and Denies dyspnea Respiratory Respiratory: Denies cough and Denies dyspnea Endocrine Endocrine: Denies palpitations Physical Exam 2 Vital Signs: Vital Signs: Last Vital Signs Temp 98.0 F 02/25/25 12:10 Pulse 96 02/25/25 12:10 Resp 16 02/25/25 12:10 BP 148/93 H 02/25/25 12:10 Pulse Ox 100 02/25/25 12:10 O2 Del Method Room Air 02/25/25 12:10 O2 Flow Rate 2 02/25/25 11:50 FiO2 33 02/18/25 07:18 Oxygen Flow Rate 3 02/21/25 08:00 BMI result Body Mass Index 18.7 Const: General: cooperative, no acute distress, alert and awake Nutritional Appearance: average body habitus Orientation/consciousness: patient oriented x3 Resp: Effort & Inspection: normal respiratory effort, no respiratory distress and no use of accessory muscles Cardio: Rate: regular rate GI: Inspection: No distended Palpation (GI): Soft to palpation Neuro: General: patient oriented x3, moves all extremities and CN's II-XI intact bilaterally Extrem: General: Yes no pedal edema Objective Data Active Medications Acetaminophen (Acetaminophen 325 Mg Tablet) 975 mg PO Q6H [facility] Last Admin: 02/25/25 03:47 Dose: 975 mg Documented By: CHERYL Albuterol/Ipratropium (Albuterol/Iprat 2.5/0.5mg 3 Ml Ampul.Neb) 3 ml INHALE RQ6H WHILE AWAKE PRN PRN Reason: shortness of breath/wheeze Calcitriol (Calcitriol 0.25 Mcg Capsule) 0.25 mcg PO DAILY [facility] Last Admin: 02/25/25 08:10 Dose: 0.25 mcg Documented By: HAMILTON Cefuroxime Axetil (Cefuroxime Axetil 500 Mg Tablet) 500 mg PO Q12H [facility] Stop: 03/10/25 08:59 Last Admin: 02/25/25 08:10 Dose: 500 mg Documented By: HAMILTON Diphenhydramine HCl (Diphenhydramine Hcl 50 Mg/Ml Vial) 25 mg IVPUSH Q6H PRN PRN Reason: allergy Last Admin: 02/21/25 09:15 Dose: 25 mg Documented By: BELKIS Gabapentin (Gabapentin 100 Mg Capsule) 100 mg PO TID [facility] Last Admin: 02/25/25 08:10 Dose: 100 mg Documented By: HAMILTON Heparin Sodium (Porcine) (Heparin Sodium,Porcine 5,000 Unit/Ml Vial) 2,200 unit 40 unit/kg (2200 unit) IVPUSH PROTOCOL BOLUS PRN; Protocol PRN Reason: 40 unit/kg - Heparin Protocol Heparin Sodium (Porcine) (Heparin Sodium,Porcine 5,000 Unit/Ml Vial) 4,500 unit 80 unit/kg (4500 unit) IVPUSH PROTOCOL BOLUS PRN; Protocol PRN Reason: 80 unit/kg - Heparin Protocol Heparin Sodium (Porcine) (Heparin Sodium,Porcine 5,000 Unit/Ml Vial) 5,000 unit INTRACATH ONCE ONE Stop: 02/26/25 11:01 Hydromorphone HCl (Hydromorphone Hcl 0.5 Mg/0.5 Ml Syringe) 0.25 mg IVPUSH Q6H PRN; Protocol PRN Reason: Pain, Severe (Pain Scale 7-10) Last Admin: 02/25/25 08:10 Dose: 0.25 mg Documented By: HAMILTON Daptomycin 340 mg/ Sodium (Chloride) 56.8 mls @ 100 mls/hr IV MoWe@1999 [facility] Last Infusion: 02/23/25 22:26 Dose: Infused Documented By: CHERYL Daptomycin 500 mg/ Sodium (Chloride) 60 mls @ 97.959 mls/hr IV Fr@1999 [facility] Heparin Sodium/Sodium Chloride (Heparin Sodium,Porcine/1/2ns) 25,000 unit in 250 mls @ 0 mls/hr IVCONT .Q0M [facility]; Protocol Loperamide HCl (Loperamide Hcl 2 Mg Capsule) 4 mg PO Q6H PRN PRN Reason: Diarrhea Naloxone HCl (Naloxone Hcl 0.4 Mg/Ml Vial) 0.2 mg IVPUSH Q2M PRN PRN Reason: Excessive sedation or RR < 8 Omeprazole (Omeprazole 40 Mg Capsule.Dr) 40 mg PO BID@0630,1630 [facility] Last Admin: 02/25/25 06:45 Dose: Not Given Documented By: CHERYL Non-Admin Reason: Patient Refused Oxycodone HCl (Oxycodone Hcl Immed Release 5 Mg Tablet) 5 mg PO Q4H PRN PRN Reason: Pain, Moderate(Pain Scale 4-6) Last Admin: 02/25/25 03:47 Dose: 5 mg Documented By: CHERYL Prednisone (Prednisone 20 Mg Tablet) 60 mg PO DAILY [facility] Last Admin: 02/25/25 08:10 Dose: 60 mg Documented By: HAMILTON Sevelamer Carbonate (Sevelamer Carbonate Tablet 800 Mg Tablet) 1,600 mg PO TIDWM [facility] Last Admin: 02/25/25 08:14 Dose: Not Given Documented By: HAMILTON Non-Admin Reason: NPO Sodium Bicarbonate (Sodium Bicarbonate 650 Mg Tablet) 650 mg PO BID [facility] Last Admin: 02/25/25 08:09 Dose: 650 mg Documented By: HAMILTON Sodium Chloride (0.9 % Sodium Chloride Flush 3 Ml Syringe) 3 ml IVFLUSH QSHIFT [facility] Last Admin: 02/25/25 08:13 Dose: 3 ml Documented By: HAMILTON Labs 02/24/25 07:04 02/25/25 06:46 Labs: Laboratory Results - last 24 hr 02/25/25 06:46 Hold Purple Top SEE NOTE Anion Gap 15 Estim Creat Clear Calc 18.7 Estimated GFR 14 Random Glucose 79 Calcium 8.6 Assessment and Plan (1) Infective endocarditis: Status: Acute (2) Bacteremia: Status: Acute (3) Acute hypoxic respiratory failure: Status: Acute (4) Acute renal failure (ARF): Status: Acute (5) Lupus nephritis: Status: Acute Plan This is a 29-year-old female with underlying lupus with lupus nephritis on 10 mg prednisone daily admitted on 02/11/2025 with dyspnea and hypoxia secondary to right-sided pneumonia with polymicrobial bacteremia requiring intubation and ventilatory support. Hospital course further complicated by acute renal failure requiring initiation of hemodialysis. Elevated by nephrology service with concern for possible lupus nephritis flare, started on high-dose systemic glucocorticoids. Extubated on 02/15/2025. Acute renal failure May be multifactorial due to KALEIGH from tubular injury due to sepsis as well as possible active lupus nephritis requiring initiation of HD Received high-dose [id number], transitioned to oral prednisone 60 mg 02/17 Nephrology following continue HD TTS, calcitriol, renvela, sodium bicarb plan for permcath today, 02/25 Plan for renal biopsy, scheduled for Friday Acute right jugular vein clot provoked, in location of previous IV heparin drip for now as kidney bx planned for friday - then transition to eliquis; d/w hematology, nephrology to determine dosing 5 bid vs 2.5 mg bid) will need 3 months of AC upon discharge Acute uncontrolled generalized Pain - Improving Multimodal approach for pain reg Schedule Tylenol 975, Gabapentin, Oxycodone 5mg Q4H, low dose IV dilaudid (wean dilaudid daily) IV narcotics stopped 02/23 but with increase in pain today, will resume at lower dose and wean daily Hyponatremia-Resolved Probably dilutional >improved with dialysis Elevated blood pressures. Improving Bp stable Normocytic anemia due to possible Acute GI bleed ?Gastritis due to high-dose steroids (reported dark stools in ICU and stool heme occult +) Continue oral PPI Seen by GI>no signs of overt bleeding, no indication for EGD at this time HH now stable for several days Acute respiratory failure with hypoxia due to pneumonia Status post extubation, required HFNC, now weaned to room air Tested + for parainfluenza virus. Mycoplasma IgG + and IgM negative, nonspecific per ID, no need for azithromycin Currently on daptomycin Severe sepsis due to Polymicrobial bacteremia. Sepsis resolved Blood cultures growing E coli, Klebsiella, MRSA Seen by Cardiology, initially recommended treatment for infective endocarditis but Echo neg for vegetation 02/22/25 s/p IV vancomycin, ceftriaxone>seen by ID rec IV dapto (6 weeks). Completed 8 days of ceftriaxone will switch to 14 days po ceftin Repeat blood cultures from 02/16 09/16 MRSA Blood cultures 02/20 neg after 48hrs Thrombocytopenia- Resolved Likely due to acute viral illness/sepsis DIC, HLH ruled out Hematology following >no further workup recommended platelets have normalized Sinus tachycardia- intermittent, seems to be due to pain EKG reviewed by cardiology>no further work up recommended at this time Given persistent hypoxia, and tachycardia VQ scan ordered to rule out PE> possibility of pulmonary embolism can not be excluded Discussed with pulmonology, check venous Doppler ultrasound to lower extremities>negative for DVT DVT prophylaxis with SCD boots+ Heparin drip Full code Disposition. PT recommended home with PT when medically clear Quality Stroke Does the patient have a stroke diagnosis?: No VTE Prior VTE?: No VTE Risk Level:: Medical - moderate - high VTE Device Contraindication: N/A - Device Ordered VTE Drug Contraindication: Treatment Not Indicated
[2025-02-25] MEDS: Heparin Sodium,Porcine/1/2NS 25,000 UNIT/250 ML IV.SOLN 7.8 UNIT IVCONT (12:55)
[2025-02-25 12:56] LABS: Hematocrit 28.8 % (37.0-47.0); Hemoglobin 9.2 g/dl (12.0-16.0); Mean Corpuscular HGB Conc 31.9 g/dl (31.0-35.0); Mean Corpuscular Hemoglobin 30.1 pg (27.0-33.0); Mean Corpuscular Volume 94.1 fL (80.0-98.0); Platelet Count 156 X10*3/uL (160-400); Red Blood Count 3.06 X10*6/uL (4.20-5.50); Red Cell Distribution Width 16.6 % (11.0-16.0); White Blood Count 12.2 X10*3/uL (4.8-10.8)
[2025-02-25] MEDS: Sevelamer Carbonate Tablet 800 MG TABLET 1600 MG PO ×2 (12:58→16:16)
[2025-02-25 13:05] LABS: INTERNATIONAL NORM RATIO 0.9 (0.9-1.1); Prothrombin Time 10.3 SEC (10.9-12.4)
--- NOTE | 2025-02-25 14:47 | PM.HEMONCPN ---
Medical Summary - Medical Summary Date of Service: 02/25/25 Chief complaint: Generalized body aches Primary Care Provider: Vic Pompa, DO [employer] Utilized?: No - Thai Speaking Interval History Interval history: Trey Canales is a 29 year old female with past medical history significant for SLE, lupus nephritis, hypertension, anemia who presented to [facility] [place] on 02/11/2025 with complaints of dyspnea, cough, fever, poor oral intake, nausea, vomiting and diarrhea. She was admitted to ICU for severe sepsis from right lobe pneumonia. Patient was also found to be in acute renal failure with a serum creatinine of 11.9. She was intubated briefly for acute respiratory failure on extubated on 02/15/2025. She was started on hemodialysis for acute renal failure and started on high-dose systemic glucocorticoids for possible lupus nephritis flare. She was found to have positive blood cultures for E coli, Klebsiella and MRSA. She was started on broad-spectrum antibiotics. She has developed gradually worsening anemia and thrombocytopenia. However, her hematocrit and platelets are rebounding and she is clearly improving. Patient had her right IJ temporary dialysis catheter removed, she went for PermCath placement but noted to have DVT in the right IJ. She has been on prophylactic heparin for DVT prophylaxis. Recent lower extremity Dopplers was negative for DVT. Review of Systems - Neurologic Reports no additional neurologic complaints, Reports as per HPI, Reports hearing normal, Denies dizziness, Denies headache(s), Denies memory loss, Denies numbness, Denies seizure-like activity, Denies sensory deficit, Reports weakness PMFSH Medical History: Medical History (Last Reviewed 02/23/25 @ 08:20 by Cici Tate, PT) Abnormal uterine bleeding Acute on chronic anemia Anemia Anxiety Depression Essential hypertension Fibromyalgia Hypertensive urgency Lupus Lupus nephritis Pericardial effusion Rash Family History: Family History (Last Reviewed 02/18/25 @ 12:30 by Martha Shipman MD) Mother Hypertension Type 2 diabetes mellitus Lupus Arthritis Maternal Grandmother Hypertension Type 2 diabetes mellitus Arthritis Family history: reviewed and not pertinent Surgical History: Surgical History (Last Reviewed 02/23/25 @ 08:20 by Cici Tate, PT) Hx of hernia repair Social History: Social History (Last Reviewed 02/18/25 @ 12:30 by Martha Shipman MD) Living Situation History: Household Members: Spouse Household Members: Children Housing: Apartment Do you presently have visiting nurse or other home services: No Tobacco History: Patient Tobacco Use Status: Current everyday Tobacco Tobacco use type: Cigarette Cigarette Packs Per Day: 0.5 Years Smoked: 7 Substance Use History: Substance Use Type: Marijuana Advance Directives: Advance Directives Date on File: 04/03/22 Occupation Assessmet: service: No Current occupational status: disabled Home Medications and Allergies Current Medications: Current Medications Acetaminophen (Acetaminophen 325 Mg Tablet) 975 mg PO Q8H [facility] Last Admin: 02/25/25 13:01 Dose: 975 mg Calcitriol (Calcitriol 0.25 Mcg Capsule) 0.25 mcg PO DAILY [facility] Last Admin: 02/25/25 08:10 Dose: 0.25 mcg Cefuroxime Axetil (Cefuroxime Axetil 500 Mg Tablet) 500 mg PO Q12H [facility] Stop: 03/10/25 08:59 Last Admin: 02/25/25 08:10 Dose: 500 mg Diphenhydramine HCl (Diphenhydramine Hcl 50 Mg/Ml Vial) 25 mg IVPUSH Q6H PRN PRN Reason: allergy Last Admin: 02/21/25 09:15 Dose: 25 mg Gabapentin (Gabapentin 100 Mg Capsule) 100 mg PO TID [facility] Last Admin: 02/25/25 08:10 Dose: 100 mg Heparin Sodium (Porcine) (Heparin Sodium,Porcine 5,000 Unit/Ml Vial) 2,200 unit 40 unit/kg (2200 unit) IVPUSH PROTOCOL BOLUS PRN; Protocol PRN Reason: 40 unit/kg - Heparin Protocol Heparin Sodium (Porcine) (Heparin Sodium,Porcine 5,000 Unit/Ml Vial) 4,500 unit 80 unit/kg (4500 unit) IVPUSH PROTOCOL BOLUS PRN; Protocol PRN Reason: 80 unit/kg - Heparin Protocol Heparin Sodium (Porcine) (Heparin Sodium,Porcine 5,000 Unit/Ml Vial) 5,000 unit INTRACATH ONCE ONE Stop: 02/26/25 11:01 Hydromorphone HCl (Hydromorphone Hcl 0.5 Mg/0.5 Ml Syringe) 0.25 mg IVPUSH Q6H PRN; Protocol PRN Reason: Pain, Severe (Pain Scale 7-10) Last Admin: 02/25/25 14:31 Dose: 0.25 mg Daptomycin 340 mg/ Sodium (Chloride) 56.8 mls @ 100 mls/hr IV MoWe@1999 [facility] Last Infusion: 02/23/25 22:26 Dose: Infused Daptomycin 500 mg/ Sodium (Chloride) 60 mls @ 97.959 mls/hr IV Fr@1999 [facility] Heparin Sodium/Sodium Chloride (Heparin Sodium,Porcine/1/2ns) 25,000 unit in 250 mls @ 0 mls/hr IVCONT .Q0M [facility]; Protocol Last Admin: 02/25/25 12:55 Dose: 14 units/kg/hr, 7.8 mls/hr Loperamide HCl (Loperamide Hcl 2 Mg Capsule) 4 mg PO Q6H PRN PRN Reason: Diarrhea Naloxone HCl (Naloxone Hcl 0.4 Mg/Ml Vial) 0.2 mg IVPUSH Q2M PRN PRN Reason: Excessive sedation or RR < 8 Omeprazole (Omeprazole 40 Mg Capsule.Dr) 40 mg PO BID@0630,1630 [facility] Last Admin: 02/25/25 06:45 Dose: Not Given Oxycodone HCl (Oxycodone Hcl Immed Release 5 Mg Tablet) 5 mg PO Q4H PRN PRN Reason: Pain, Moderate(Pain Scale 4-6) Last Admin: 02/25/25 13:01 Dose: 5 mg Prednisone (Prednisone 20 Mg Tablet) 60 mg PO DAILY [facility] Last Admin: 02/25/25 08:10 Dose: 60 mg Sevelamer Carbonate (Sevelamer Carbonate Tablet 800 Mg Tablet) 1,600 mg PO TIDWM [facility] Last Admin: 02/25/25 12:58 Dose: 1,600 mg Sodium Bicarbonate (Sodium Bicarbonate 650 Mg Tablet) 650 mg PO BID [facility] Last Admin: 02/25/25 08:09 Dose: 650 mg Sodium Chloride (0.9 % Sodium Chloride Flush 3 Ml Syringe) 3 ml IVFLUSH QSHIFT [facility] Last Admin: 02/25/25 08:13 Dose: 3 ml Allergies Allergy/AdvReac Type Severity Reaction Status Date / Time mycophenolate mofetil AdvReac Intermediate GI upset Verified 02/11/25 16:49 gabapentin AdvReac Unknown Hives Verified 02/11/25 16:49 Exam Vital signs: Vital Signs Temp 97.3 F 02/25/25 12:51 Pulse 97 02/25/25 12:51 Resp 17 02/25/25 12:51 BP 143/93 H 02/25/25 12:51 Pulse Ox 96 02/25/25 12:51 O2 Del Method Room Air 02/25/25 12:51 O2 Flow Rate 2 02/25/25 11:50 FiO2 33 02/18/25 07:18 Intake & Output 02/24/25 02/25/25 02/25/25 18:59 06:59 18:59 Intake Total 440 / 780 340 / 780 720 / 720 Balance 440 / 780 340 / 780 720 / 720 Intake: Intake, Oral Amount 440 / 780 340 / 780 720 / 720 Other: NPO Yes Yes Breakfast % Eaten 75% Lunch % Eaten 75% Evening Snack % Eaten 100 Eating (Feeding) Ability Independent Independent Number of Unmeasured Voids 1 Number of Bowel Movements 1 Urine Bedside Commode Last Bowel Movement 02/24/25 02/24/25 Stool Color Brown Stool Consistency Loose Weight 55.7 kg Weight in Grams 53929 Weight 55.7 kg BMI result Body Mass Index 18.7 - Constitutional Present: no acute distress, chronically ill appearing - Routine HEENT Exam Head: Present: normal inspection - Routine Neck Exam Present: full ROM - Routine Respiratory Exam Present: decreased breath sounds, prolonged expiratory phase. Absent: stridor, wheezes - Routine Cardiovascular Exam Cardiovascular: Present: RRR, S1, S2 - Routine Abdominal Exam Present: diminished bowel sounds - Routine Extremities Exam Absent: pedal edema - Routine Skin Exam Present: intact - Routine Neurological Exam Present: alert, oriented X3 - Detailed Neurological Exam: Coma Scale Eye Opening: Spontaneous (4) Data - Labs CBC & Chem 7: 02/25/25 12:48 02/25/25 06:46 - Imaging Radiologist's impression: ITS Impressions Chest X-Ray 02/18/25 14:48 IMPRESSION: 1. Right central venous catheter in place, tip at the junction of the brachiocephalic veins within the superior SVC. 2. Extensive consolidative opacity throughout the right upper lung, with lesser consolidation right lower lung. Findings are worsening. Electronically signed by: Dutch Gutierrez MD 02/18/2025 04:02 PM EDT Venous Duplex 02/19/25 11:17 IMPRESSION: No evidence of deep venous thrombosis involving the bilateral lower extremities. Electronically signed by: hGulam Sanchez MD 02/21/2025 07:08 AM EDT Assessment and Plan Patient Active problem list reviewed?: Yes (1) Bicytopenia Status: Acute Assessment and plan: 1. This is a 29-year-old woman with systemic lupus erythematosus, lupus nephritis who is currently admitted for sepsis, acute respiratory failure, bacterial pneumonia and acute renal failure necessitating hemodialysis. She was extubated on 02/15/25. She was found to have E coli and Klebsiella in blood. She has parainfluenza 3, MRSA which is now cleared. She is undergoing hemodialysis for acute lupus nephritis flare. She is on systemic steroids with prednisone. She developed anemia and thrombocytopenia and concern was raised for HLH or hemophagocytic lymphohistiocytosis. She does not meet any criteria for HLH. Her anemia is secondary to renal failure, platelets are improving. She does not have unexplained fever, lymphadenopathy, splenomegaly or hypofibrinogenemia. The degree of elevation of ferritin is very mild considering her ongoing issues. Ferritin is an acute phase reactant, for HLH this is usually in the range of 10,000. Her platelet counts have normalized. 2. Right IJ DVT related to dialysis catheter. This has been removed. I recommend anticoagulation for 3 months. Confer with Nephrology about dosing of Eliquis in the setting of renal failure/hemodialysis. If Eliquis is not an option, she needs to start warfarin. Thank you. - Time Spent With Patient Time Spent with Patient (in minutes): 10
[2025-02-25] MEDS: Omeprazole 40 MG CAPSULE.DR PO (16:16)
[2025-02-25 20:00] LABS: PTT Heparin Drip 49.2 SEC (53-77.9)
[2025-02-25] MEDS: Heparin Sodium,Porcine 5,000 UNIT/ML VIAL 2200 UNIT IVPUSH (20:33)
[2025-02-25] MEDS: DAPTOmycin 500 MG in 0.9 % Sodium Chloride 50 ML 97.96 MG IV (20:58)
[2025-02-25] MEDS: Melatonin 3 MG TABLET 6 MG PO (22:59)
[2025-02-26] MEDS: 0.9 % Sodium Chloride Flush 3 ML SYRINGE IVFLUSH ×2 (00:17→08:17)
[2025-02-26] MEDS: HYDROmorphone HCl 0.5 MG/0.5 ML SYRINGE 0.25 MG IVPUSH ×3 (02:42→10:17)
[2025-02-26 02:46] LABS: Mean Corpuscular HGB Conc 33.3 g/dl (31.0-35.0); Mean Corpuscular Hemoglobin 30.4 pg (27.0-33.0); Mean Corpuscular Volume 91.2 fL (80.0-98.0); Mean Platelet Volume 8.9 fL (9.4-12.3); Platelet Count 135 X10*3/uL (160-400); Red Blood Count 2.96 X10*6/uL (4.20-5.50); Red Cell Distribution Width 16.7 % (11.0-16.0); White Blood Count 12.4 X10*3/uL (4.8-10.8)
[2025-02-26 02:56] LABS: PTT Heparin Drip 76.7 SEC (53-77.9)
[2025-02-26 03:34] LABS: Anion Gap 18 (12-20); Blood Urea Nitrogen 67 mg/dL (9-16); Calcium 8.6 mg/dL (8.4-10.2); Carbon Dioxide 21 mmol/L (22-29); Chloride 100 mmol/L (96-108); Creatinine Clr Calc Pharmacy 16.9; Estimated Glomerular Filt Rate 12; Glucose Random 76 mg/dL (60-115); Potassium 4.5 mmol/L (3.3-5.1); Sodium 134 mmol/L (135-145)
[2025-02-26 04:00] VITALS: BP 166/98; PULSE 95; RESP 18; TEMP 36.8; O2SAT 100
[2025-02-26] MEDS: oxyCODONE HCl Immed Release 5 MG TABLET PO ×3 (05:45→20:24)
[2025-02-26] MEDS: Omeprazole 40 MG CAPSULE.DR PO ×2 (05:45→16:40)
[2025-02-26] MEDS: Acetaminophen 325 MG TABLET 975 MG PO ×2 (05:45→20:18)
[2025-02-26 06:57] LABS: INTERNATIONAL NORM RATIO 0.9 (0.9-1.1); Prothrombin Time 10.6 SEC (10.9-12.4)
[2025-02-26 07:43] VITALS: BP 157/99; PULSE 104; RESP 16; TEMP 36.2; O2SAT 98
[2025-02-26] MEDS: Sevelamer Carbonate Tablet 800 MG TABLET 1600 MG PO ×2 (08:16→16:40)
[2025-02-26] MEDS: Gabapentin 100 MG CAPSULE PO ×3 (08:17→20:18)
[2025-02-26] MEDS: predniSONE 20 MG TABLET 60 MG PO (08:17)
[2025-02-26] MEDS: cefuroxime axetiL 500 MG TABLET PO ×2 (08:17→20:35)
[2025-02-26] MEDS: calcitrioL 0.25 MCG CAPSULE PO (08:17)
[2025-02-26] MEDS: Sodium Bicarbonate 650 MG TABLET PO ×2 (08:17→20:18)
--- NOTE | 2025-02-26 08:21 | HO.PM.IMPN ---
Subjective Subjective Date of Service: 02/26/25 Interval History: seen and examined this morning follow up for renal failure, respiratory failure remains on room air, no sob having ongoing generalized pain and doesn't think pain is enough Physical Exam Vital Signs: Vital Signs: Last Vital Signs Temp 97.2 F 02/26/25 07:43 Pulse 104 H 02/26/25 07:43 Resp 16 02/26/25 07:43 BP 157/99 H 02/26/25 07:43 Pulse Ox 98 02/26/25 07:43 O2 Del Method Room Air 02/26/25 07:43 O2 Flow Rate 2 02/25/25 11:50 FiO2 33 02/18/25 07:18 Oxygen Flow Rate 3 02/21/25 08:00 BMI result Body Mass Index 18.7 Const: General: no acute distress, alert and awake Resp: Effort & Inspection: normal respiratory effort and able to speak in complete sentences Auscultation: clear to auscultation bilaterally Cardio: Rate: regular rate Rhythm: regular rhythm Heart sounds: S1 normal heart sound present and S2 normal heart sound present GI: Palpation (GI): Soft to palpation and nontender Skin: Rashes: no rashes Extrem: General: No edema Objective Data Active Medications Acetaminophen (Acetaminophen 325 Mg Tablet) 975 mg PO Q8H [facility] Last Admin: 02/26/25 05:45 Dose: 975 mg Documented By: ZORAN Calcitriol (Calcitriol 0.25 Mcg Capsule) 0.25 mcg PO DAILY [facility] Last Admin: 02/26/25 08:17 Dose: 0.25 mcg Documented By: FABI Cefuroxime Axetil (Cefuroxime Axetil 500 Mg Tablet) 500 mg PO Q12H GERARDO Stop: 03/10/25 08:59 Last Admin: 02/26/25 08:17 Dose: 500 mg Documented By: FABI Diphenhydramine HCl (Diphenhydramine Hcl 50 Mg/Ml Vial) 25 mg IVPUSH Q6H PRN PRN Reason: allergy Last Admin: 02/21/25 09:15 Dose: 25 mg Documented By: BELKIS Gabapentin (Gabapentin 100 Mg Capsule) 100 mg PO TID GERARDO Last Admin: 02/26/25 08:17 Dose: 100 mg Documented By: FABI Heparin Sodium (Porcine) (Heparin Sodium,Porcine 5,000 Unit/Ml Vial) 2,200 unit 40 unit/kg (2200 unit) IVPUSH PROTOCOL BOLUS PRN; Protocol PRN Reason: 40 unit/kg - Heparin Protocol Last Admin: 02/25/25 20:33 Dose: 2,200 unit Documented By: ZORAN Heparin Sodium (Porcine) (Heparin Sodium,Porcine 5,000 Unit/Ml Vial) 4,500 unit 80 unit/kg (4500 unit) IVPUSH PROTOCOL BOLUS PRN; Protocol PRN Reason: 80 unit/kg - Heparin Protocol Heparin Sodium (Porcine) (Heparin Sodium,Porcine 5,000 Unit/Ml Vial) 5,000 unit INTRACATH ONCE ONE Stop: 02/26/25 11:01 Hydromorphone HCl (Hydromorphone Hcl 0.5 Mg/0.5 Ml Syringe) 0.25 mg IVPUSH Q6H PRN; Protocol PRN Reason: Pain, Severe (Pain Scale 7-10) Last Admin: 02/26/25 08:16 Dose: 0.25 mg Documented By: FABI Daptomycin 340 mg/ Sodium (Chloride) 56.8 mls @ 100 mls/hr IV MoWe@1999 [facility] Last Infusion: 02/23/25 22:26 Dose: Infused Documented By: CHERYL Daptomycin 500 mg/ Sodium (Chloride) 60 mls @ 97.959 mls/hr IV Fr@1999 [facility] Last Infusion: 02/25/25 23:56 Dose: Infused Documented By: ZORAN Heparin Sodium/Sodium Chloride (Heparin Sodium,Porcine/1/2ns) 25,000 unit in 250 mls @ 0 mls/hr IVCONT .Q0M [facility]; Protocol Last Titration: 02/25/25 20:29 Dose: 16 units/kg/hr, 8.91 mls/hr Documented By: ZORAN Co-signed By: KELECHI Loperamide HCl (Loperamide Hcl 2 Mg Capsule) 4 mg PO Q6H PRN PRN Reason: Diarrhea Melatonin (Melatonin 3 Mg Tablet) 6 mg PO BEDTIME PRN PRN Reason: Insomnia Last Admin: 02/25/25 22:59 Dose: 6 mg Documented By: ZORAN Naloxone HCl (Naloxone Hcl 0.4 Mg/Ml Vial) 0.2 mg IVPUSH Q2M PRN PRN Reason: Excessive sedation or RR < 8 Omeprazole (Omeprazole 40 Mg Capsule.Dr) 40 mg PO BID@0630,1630 [facility] Last Admin: 02/26/25 05:45 Dose: 40 mg Documented By: ZORAN Oxycodone HCl (Oxycodone Hcl Immed Release 5 Mg Tablet) 5 mg PO Q4H PRN PRN Reason: Pain, Moderate(Pain Scale 4-6) Last Admin: 02/26/25 05:45 Dose: 5 mg Documented By: ZORAN Prednisone (Prednisone 20 Mg Tablet) 60 mg PO DAILY [facility] Last Admin: 02/26/25 08:17 Dose: 60 mg Documented By: FABI Sevelamer Carbonate (Sevelamer Carbonate Tablet 800 Mg Tablet) 1,600 mg PO TIDWM [facility] Last Admin: 02/26/25 08:16 Dose: 1,600 mg Documented By: FABI Sodium Bicarbonate (Sodium Bicarbonate 650 Mg Tablet) 650 mg PO BID [facility] Last Admin: 02/26/25 08:17 Dose: 650 mg Documented By: FABI Sodium Chloride (0.9 % Sodium Chloride Flush 3 Ml Syringe) [facility] Last Admin: 02/26/25 08:17 Dose: 3 ml Documented By: FABI Labs 02/26/25 02:30 02/26/25 02:30 Labs: Laboratory Results - last 24 hr 02/25/25 02/25/25 02/26/25 12:48 19:16 02:30 MCV 94.1 91.2 MCH 30.1 30.4 MCHC 31.9 33.3 RDW 16.6 H 16.7 H Plt Count 156 L 135 L MPV 10.0 8.9 L Absolute Nucleated RBC 0.000 0.000 Nucleated RBC % (auto) 0.0 0.0 Hold Purple Top PT 10.3 L D INR 0.9 aPTT Heparin Protocol 28.0 L 49.2 L D 76.7 D Anion Gap 18 Estim Creat Clear Calc 16.9 Estimated GFR 12 Random Glucose 76 Calcium 8.6 02/26/25 02/26/25 06:14 06:19 MCV MCH MCHC RDW Plt Count MPV Absolute Nucleated RBC Nucleated RBC % (auto) Hold Purple Top SEE NOTE PT 10.6 L INR 0.9 aPTT Heparin Protocol Anion Gap Estim Creat Clear Calc Estimated GFR Random Glucose Calcium Microbiology Microbiology Results: Microbiology 02/20/25 12:13 Blood Culture - Final Blood - Arterial No growth after 5 days. 02/20/25 12:13 Blood Culture - Final Blood - Arterial No growth after 5 days. Assessment and Plan (1) Infective endocarditis: Status: Acute (2) Bacteremia: Status: Acute (3) Acute hypoxic respiratory failure: Status: Acute (4) Acute renal failure (ARF): Status: Acute (5) Lupus nephritis: Status: Acute Plan This is a 29-year-old female with underlying lupus with lupus nephritis on 10 mg prednisone daily admitted on 02/11/2025 with dyspnea and hypoxia secondary to right-sided pneumonia with polymicrobial bacteremia requiring intubation and ventilatory support. Hospital course further complicated by acute renal failure requiring initiation of hemodialysis. Elevated by nephrology service with concern for possible lupus nephritis flare, started on high-dose systemic glucocorticoids. Extubated on 02/15/2025. Acute renal failure May be multifactorial due to KALEIGH from tubular injury due to sepsis as well as possible active lupus nephritis requiring initiation of HD Received high-dose [id number], transitioned to oral prednisone 60 mg 02/17 Nephrology following continue HD TTS, calcitriol, renvela, sodium bicarb plan for permcath 02/25 Plan for renal biopsy, scheduled for Friday Acute right jugular vein clot provoked, in location of previous IV heparin drip for now as kidney bx planned for friday - then transition to eliquis; d/w hematology, nephrology to determine dosing 5 bid vs 2.5 mg bid) will need 3 months of AC upon discharge Acute uncontrolled generalized Pain - Improving Multimodal approach for pain reg Schedule Tylenol 975, Gabapentin, Oxycodone 5mg Q4H, low dose IV dilaudid (wean dilaudid daily) IV narcotics stopped 02/23 but with increase in pain today, will resume at lower dose and wean daily Hyponatremia-Resolved Probably dilutional >improved with dialysis Elevated blood pressures. Improving Bp stable Normocytic anemia due to possible Acute GI bleed ?Gastritis due to high-dose steroids (reported dark stools in ICU and stool heme occult +) Continue oral PPI Seen by GI>no signs of overt bleeding, no indication for EGD at this time HH now stable for several days Acute respiratory failure with hypoxia due to pneumonia Status post extubation, required HFNC, now weaned to room air Tested + for parainfluenza virus. Mycoplasma IgG + and IgM negative, nonspecific per ID, no need for azithromycin Currently on daptomycin Severe sepsis due to Polymicrobial bacteremia. Sepsis resolved Blood cultures growing E coli, Klebsiella, MRSA Seen by Cardiology, initially recommended treatment for infective endocarditis but Echo neg for vegetation 02/22/25 s/p IV vancomycin, ceftriaxone>seen by ID rec IV dapto (6 weeks). Completed 8 days of ceftriaxone will switch to 14 days po ceftin Repeat blood cultures from 02/16 09/16 MRSA Blood cultures 02/20 neg after 48hrs Thrombocytopenia- Resolved Likely due to acute viral illness/sepsis DIC, HLH ruled out Hematology following >no further workup recommended platelets have normalized Sinus tachycardia- intermittent, seems to be due to pain EKG reviewed by cardiology>no further work up recommended at this time Given persistent hypoxia, and tachycardia VQ scan ordered to rule out PE> possibility of pulmonary embolism can not be excluded Discussed with pulmonology, check venous Doppler ultrasound to lower extremities>negative for DVT DVT prophylaxis with SCD boots+ Heparin drip Full code Disposition. PT recommended home with PT when medically clear Quality Stroke Does the patient have a stroke diagnosis?: No VTE Prior VTE?: No VTE Risk Level:: Medical - moderate - high VTE Device Contraindication: N/A - Device Ordered VTE Drug Contraindication: Treatment Not Indicated
[2025-02-26] MEDS: HYDROmorphone HCl 0.5 MG/0.5 ML SYRINGE IM (12:51)
[2025-02-26 13:01] LABS: PTT Heparin Drip 32.8 SEC (53-77.9)
[2025-02-26 15:48] LABS: Vitamin D 25-OH, D2 <4 ng/mL; Vitamin D 25-OH, D3 8 ng/mL; Vitamin D 25-OH, Total 8 ng/mL (30-100)
[2025-02-26 16:00] VITALS: BP 141/81; PULSE 135; RESP 17; TEMP 36.2; O2SAT 100
[2025-02-26] MEDS: HYDROmorphone HCl 0.5 MG/0.5 ML SYRINGE IV (16:48)
[2025-02-26] MEDS: Heparin Sodium,Porcine/1/2NS 25,000 UNIT/250 ML IV.SOLN 6.68 UNIT IVCONT (18:08)
[2025-02-26] MEDS: HYDROmorphone HCl 1 MG/ML SYRINGE IVPUSH ×2 (18:44→22:45)
[2025-02-26 19:55] VITALS: BP 148/77; PULSE 127; RESP 16; TEMP 36; O2SAT 100
[2025-02-26 20:02] LABS: PTT Heparin Drip 42.4 SEC (53-77.9)
[2025-02-26] MEDS: Heparin Sodium,Porcine 5,000 UNIT/ML VIAL 2200 UNIT IVPUSH (20:19)
[2025-02-27] MEDS: HYDROmorphone HCl 1 MG/ML SYRINGE IVPUSH ×2 (02:49→07:00)
[2025-02-27 04:00] VITALS: BP 158/88; PULSE 105; RESP 16; TEMP 36.3; O2SAT 99
[2025-02-27] MEDS: Acetaminophen 325 MG TABLET 975 MG PO ×2 (04:09→21:28)
[2025-02-27] MEDS: oxyCODONE HCl Immed Release 5 MG TABLET PO (04:09)
[2025-02-27] MEDS: Omeprazole 40 MG CAPSULE.DR PO ×2 (06:10→16:50)
[2025-02-27 08:00] VITALS: BP 145/89; PULSE 100; RESP 17; TEMP 36.6; O2SAT 99
[2025-02-27] MEDS: Sodium Bicarbonate 650 MG TABLET PO ×2 (08:42→21:27)
[2025-02-27] MEDS: Sevelamer Carbonate Tablet 800 MG TABLET 1600 MG PO ×3 (08:42→16:50)
[2025-02-27] MEDS: 0.9 % Sodium Chloride Flush 3 ML SYRINGE IVFLUSH ×3 (08:42→21:29)
[2025-02-27] MEDS: Gabapentin 100 MG CAPSULE PO ×3 (08:42→21:28)
[2025-02-27] MEDS: cefuroxime axetiL 500 MG TABLET PO ×2 (08:42→21:28)
[2025-02-27] MEDS: predniSONE 20 MG TABLET 60 MG PO (08:42)
[2025-02-27] MEDS: calcitrioL 0.25 MCG CAPSULE PO (08:42)
[2025-02-27] MEDS: HYDROmorphone HCl 2 MG TABLET PO ×3 (11:16→21:29)
--- NOTE | 2025-02-27 13:34 | P.PNIM_ITS ---
Subjective Subjective Date of Service: 02/27/25 Interval History: seen and examined this morning follow up for renal failure, generalized pain reporting ongoing pain (generalized); now with pain at site of permcath since placement as well Review of Systems Review of Systems: Yes all other systems are reviewed and are negative Constitutional Constitutional: Denies chills and Denies fever(s) Physical Exam 2 Vital Signs: Vital Signs: Last Vital Signs Temp 97.8 F 02/27/25 08:00 Pulse 100 02/27/25 08:00 Resp 17 02/27/25 08:00 BP 145/89 H 02/27/25 08:00 Pulse Ox 99 02/27/25 08:00 O2 Del Method Room Air 02/27/25 08:00 O2 Flow Rate 2 02/25/25 11:50 FiO2 33 02/18/25 07:18 Oxygen Flow Rate 3 02/21/25 08:00 BMI result Body Mass Index 18.7 Const: Other: permcath left side General: cooperative, no acute distress, alert and awake Nutritional Appearance: average body habitus Orientation/consciousness: patient oriented x3 Resp: Effort & Inspection: normal respiratory effort, no respiratory distress and no use of accessory muscles Cardio: Rate: regular rate GI: Inspection: No distended Palpation (GI): Soft to palpation Neuro: Other: generalized weakness, able to move all 4 extremities General: patient oriented x3, moves all extremities and CN's II-XI intact bilaterally Extrem: General: Yes no pedal edema Objective Data Active Medications Acetaminophen (Acetaminophen 325 Mg Tablet) 975 mg PO Q8H GER[facility] Last Admin: 02/27/25 11:17 Dose: Not Given Documented By: FABI Non-Admin Reason: Patient Refused Calcitriol (Calcitriol 0.25 Mcg Capsule) 0.25 mcg PO DAILY [facility] Last Admin: 02/27/25 08:42 Dose: 0.25 mcg Documented By: FABI Cefuroxime Axetil (Cefuroxime Axetil 500 Mg Tablet) 500 mg PO Q12H GERARDO Stop: 03/10/25 08:59 Last Admin: 02/27/25 08:42 Dose: 500 mg Documented By: FABI Diphenhydramine HCl (Diphenhydramine Hcl 50 Mg/Ml Vial) 25 mg IVPUSH Q6H PRN PRN Reason: allergy Last Admin: 02/21/25 09:15 Dose: 25 mg Documented By: BELKIS Gabapentin (Gabapentin 100 Mg Capsule) 100 mg PO TID [facility] Last Admin: 02/27/25 08:42 Dose: 100 mg Documented By: FABI Heparin Sodium (Porcine) (Heparin Sodium,Porcine 5,000 Unit/Ml Vial) 2,200 unit 40 unit/kg (2200 unit) IVPUSH PROTOCOL BOLUS PRN; Protocol PRN Reason: 40 unit/kg - Heparin Protocol Last Admin: 02/26/25 20:19 Dose: 2,200 unit Documented By: AYDE Heparin Sodium (Porcine) (Heparin Sodium,Porcine 5,000 Unit/Ml Vial) 4,500 unit 80 unit/kg (4500 unit) IVPUSH PROTOCOL BOLUS PRN; Protocol PRN Reason: 80 unit/kg - Heparin Protocol Hydromorphone HCl (Hydromorphone Hcl 1 Mg/Ml Syringe) 0.5 mg IVPUSH Q4H PRN; Protocol PRN Reason: Pain, Severe (Pain Scale 7-10) Hydromorphone HCl (Hydromorphone Hcl 2 Mg Tablet) 2 mg PO Q4H PRN PRN Reason: Pain, Moderate(Pain Scale 4-6) Last Admin: 02/27/25 11:16 Dose: 2 mg Documented By: FABI Daptomycin 340 mg/ Sodium (Chloride) 56.8 mls @ 100 mls/hr IV MoWe@1999 [facility] Last Infusion: 02/23/25 22:26 Dose: Infused Documented By: CHERYL Daptomycin 500 mg/ Sodium (Chloride) 60 mls @ 97.959 mls/hr IV Fr@1999 [facility] Last Infusion: 02/25/25 23:56 Dose: Infused Documented By: ZORAN Heparin Sodium/Sodium Chloride (Heparin Sodium,Porcine/1/2ns) 25,000 unit in 250 mls @ 0 mls/hr IVCONT .Q0M [facility]; Protocol Last Titration: 02/27/25 08:24 Dose: 14 units/kg/hr, 7.8 mls/hr Documented By: FABI Co-signed By: AMANDA Loperamide HCl (Loperamide Hcl 2 Mg Capsule) 4 mg PO Q6H PRN PRN Reason: Diarrhea Melatonin (Melatonin 3 Mg Tablet) 6 mg PO BEDTIME PRN PRN Reason: Insomnia Last Admin: 02/25/25 22:59 Dose: 6 mg Documented By: ZORAN Naloxone HCl (Naloxone Hcl 0.4 Mg/Ml Vial) 0.2 mg IVPUSH Q2M PRN PRN Reason: Excessive sedation or RR < 8 Omeprazole (Omeprazole 40 Mg Capsule.) 40 mg PO BID@0630,1630 [facility] Last Admin: 02/27/25 06:10 Dose: 40 mg Documented By: RAMSEY Prednisone (Prednisone 20 Mg Tablet) 60 mg PO DAILY [facility] Last Admin: 02/27/25 08:42 Dose: 60 mg Documented By: FABI Sevelamer Carbonate (Sevelamer Carbonate Tablet 800 Mg Tablet) 1,600 mg PO TIDWM [facility] Last Admin: 02/27/25 11:16 Dose: 1,600 mg Documented By: FABI Sodium Bicarbonate (Sodium Bicarbonate 650 Mg Tablet) 650 mg PO BID [facility] Last Admin: 02/27/25 08:42 Dose: 650 mg Documented By: FABI Sodium Chloride (0.9 % Sodium Chloride Flush 3 Ml Syringe) 3 ml IVFLUSH QSHIFT [facility] Last Admin: 02/27/25 08:42 Dose: 3 ml Documented By: FABI Labs 02/26/25 02:30 02/26/25 02:30 Labs: Laboratory Results - last 24 hr 02/22/25 02/26/25 02/27/25 06:55 19:31 02:37 Hold Purple Top aPTT Heparin Protocol 42.4 L D 72.0 D 25-OH Vitamin D Total 8 L 25-Hydroxy Vitamin D2 <4 25-Hydroxy Vitamin D3 8 02/27/25 02/27/25 08:03 08:05 Hold Purple Top SEE NOTE aPTT Heparin Protocol 65.0 25-OH Vitamin D Total 25-Hydroxy Vitamin D2 25-Hydroxy Vitamin D3 Assessment and Plan (1) Infective endocarditis: Status: Acute (2) Lupus nephritis: Status: Acute (3) Acute renal failure (ARF): Status: Acute Plan This is a 29-year-old female with underlying lupus with lupus nephritis on 10 mg prednisone daily admitted on 02/11/2025 with dyspnea and hypoxia secondary to right-sided pneumonia with polymicrobial bacteremia requiring intubation and ventilatory support. Hospital course further complicated by acute renal failure requiring initiation of hemodialysis. Followed by nephrology service with concern for possible lupus nephritis flare, started on high-dose systemic glucocorticoids. Extubated on 02/15/2025. Acute renal failure May be multifactorial due to KALEIGH from tubular injury due to sepsis as well as possible active lupus nephritis requiring initiation of HD Received high-dose [id number], transitioned to oral prednisone 60 mg 02/17 Nephrology following continue HD TTS, calcitriol, renvela, sodium bicarb s/p permcath 02/25 Plan for renal biopsy, scheduled for Friday. npo at midnight, hold heparin 6 hours prior to procedure (procedure scheduled for 9am 02/28) awaiting outpatient HD chair Acute right jugular vein clot provoked, in location of previous IV heparin drip for now as kidney bx planned for friday - then transition to eliquis; d/w hematology, nephrology to determine dosing 5 bid vs 2.5 mg bid) will need 3 months of AC upon discharge Acute uncontrolled generalized Pain - Improving Multimodal approach for pain reg Schedule Tylenol 975, Gabapentin. Oxycodone doesn't seem to be effective will change to po dilaudid. low dose IV dilaudid (wean dilaudid daily) Severe sepsis due to Polymicrobial bacteremia. Sepsis resolved Blood cultures growing E coli, Klebsiella, MRSA Seen by Cardiology, treatment for infective endocarditis, repeat echo does not visualize tricuspid or pulmonic valves well s/p IV vancomycin, ceftriaxone>seen by ID rec IV dapto (6 weeks) from first negative cultures (02/20) end date 04/03 Completed 8 days of ceftriaxone will switch to 14 days po ceftin Hyponatremia-Resolved Probably dilutional >improved with dialysis Elevated blood pressures. Improving Bp stable Normocytic anemia due to possible Acute GI bleed ?Gastritis due to high-dose steroids (reported dark stools in ICU and stool heme occult +) Continue oral PPI Seen by GI>no signs of overt bleeding, no indication for EGD at this time HH now stable for several days Acute respiratory failure with hypoxia due to pneumonia Status post extubation, required HFNC, now weaned to room air Tested + for parainfluenza virus. Mycoplasma IgG + and IgM negative, nonspecific per ID, no need for azithromycin Currently on daptomycin Thrombocytopenia- Resolved Likely due to acute viral illness/sepsis DIC, HLH ruled out Hematology following >no further workup recommended platelets have normalized Sinus tachycardia- intermittent, seems to be due to pain EKG reviewed by cardiology>no further work up recommended at this time Given persistent hypoxia, and tachycardia VQ scan ordered to rule out PE> possibility of pulmonary embolism can not be excluded Discussed with pulmonology, check venous Doppler ultrasound to lower extremities>negative for DVT DVT prophylaxis with SCD boots+ Heparin drip Full code Disposition. PT recommended home with PT when medically clear Quality Stroke Does the patient have a stroke diagnosis?: No VTE Prior VTE?: No VTE Risk Level:: Medical - moderate - high VTE Device Contraindication: N/A - Device Ordered VTE Drug Contraindication: Treatment Not Indicated
[2025-02-27] MEDS: HYDROmorphone HCl 1 MG/ML SYRINGE 0.5 MG IVPUSH ×3 (14:39→22:50)
[2025-02-27 16:00] VITALS: BP 159/88; PULSE 115; RESP 17; TEMP 37.3; O2SAT 99
[2025-02-27 19:51] VITALS: BP 134/73; PULSE 128; RESP 18; TEMP 36.8; O2SAT 100
[2025-02-27] MEDS: Loperamide HCl 2 MG CAPSULE 4 MG PO (21:28)
[2025-02-27] MEDS: Melatonin 3 MG TABLET 6 MG PO (22:51)
[2025-02-28] VITALS (19 sets, daily range): BP systolic 130–167; BP diastolic 48–100; PULSE 103–136; RESP 13–19; TEMP 36.3–36.9; O2SAT 98–100
[2025-02-28] MEDS: HYDROmorphone HCl 2 MG TABLET PO ×6 (01:30→23:05)
[2025-02-28] MEDS: Heparin Sodium,Porcine/1/2NS 25,000 UNIT/250 ML IV.SOLN 7.8 UNIT IVCONT (01:33)
[2025-02-28] MEDS: HYDROmorphone HCl 1 MG/ML SYRINGE 0.5 MG IVPUSH ×5 (02:49→20:24)
[2025-02-28] MEDS: Omeprazole 40 MG CAPSULE.DR PO ×2 (05:41→15:00)
[2025-02-28] MEDS: cefuroxime axetiL 500 MG TABLET PO ×2 (07:37→20:25)
[2025-02-28] MEDS: Gabapentin 100 MG CAPSULE PO ×3 (07:37→20:26)
[2025-02-28] MEDS: calcitrioL 0.25 MCG CAPSULE PO (07:37)
[2025-02-28] MEDS: predniSONE 20 MG TABLET 60 MG PO (07:37)
[2025-02-28] MEDS: Sodium Bicarbonate 650 MG TABLET PO ×2 (07:37→20:25)
[2025-02-28] MEDS: 0.9 % Sodium Chloride Flush 3 ML SYRINGE IVFLUSH ×2 (07:38→15:01)
[2025-02-28 08:28] LABS: PTT Heparin Drip 27.5 SEC (53-77.9)
--- NOTE | 2025-02-28 08:30 | P.PNNP_ITS ---
Subjective Subjective Date of Service: 02/28/25 Principal diagnosis: MRSA bacteremia Interval history: 29 y/o female with lupus, being followed for renal failure HD TTS no urine output patient states she has continued widespread pain in her joints. left tunneled HD catheter placed 02/25 (mid SVC), reports onging tenderness at the site since insertion plan for renal biopsy today Physical Exam 2 Vital Signs: Vital Signs: Last Vital Signs Temp 98.5 F 02/28/25 08:00 Pulse 131 H 02/28/25 09:50 Resp 18 02/28/25 09:50 BP 141/88 H 02/28/25 09:50 Pulse Ox 98 02/28/25 09:50 O2 Del Method Room Air 02/28/25 09:50 O2 Flow Rate 2 02/28/25 09:40 FiO2 33 02/18/25 07:18 Oxygen Flow Rate 3 02/21/25 08:00 BMI result Body Mass Index 18.7 Const: General: no acute distress, alert and awake Resp: Effort & Inspection: normal respiratory effort Auscultation: clear to auscultation bilaterally Cardio: Rate: regular rate Rhythm: regular rhythm Heart sounds: S1 normal heart sound present and S2 normal heart sound present GI: Palpation (GI): Soft to palpation and nontender Skin: Rashes: no rashes Extrem: General: No edema Objective Data Labs 02/26/25 02:30 02/26/25 02:30 Labs: Laboratory Results - last 24 hr 02/28/25 07:52 aPTT Heparin Protocol 27.5 L D Microbiology Microbiology Results: Microbiology 02/20/25 12:13 Blood - Arterial Blood Culture - Final No growth after 5 days. 02/20/25 12:13 Blood - Arterial Blood Culture - Final No growth after 5 days. 02/16/25 16:36 Blood - Venous Blood Culture - Final No growth after 5 days. 02/15/25 20:03 Blood - Venous Blood Culture - Final No growth after 5 days. 02/16/25 16:36 Blood - Venous Blood Culture - Final Methicillin Res Staph Aureus 02/15/25 20:03 Blood - Venous Blood Culture - Final Methicillin Res Staph Aureus 02/14/25 10:51 Blood - Venous Blood Culture - Final Methicillin Res Staph Aureus 02/14/25 10:27 Blood - Venous Blood Culture - Final Methicillin Res Staph Aureus 02/12/25 09:59 Blood - Venous Blood Culture - Final Methicillin Res Staph Aureus 02/12/25 09:48 Blood - Venous Blood Culture - Final Methicillin Res Staph Aureus 02/11/25 17:44 Blood - Venous Blood Culture - Final Escherichia coli Klebsiella oxytoca 02/11/25 17:17 Blood - Venous Blood Culture - Final Escherichia coli Klebsiella oxytoca Procedures Date of Service Date of Service: 02/28/25 Assessment & Plan Assessment and plan (1) Acute renal failure (ARF): Status: Acute (2) Systemic lupus erythematosus: Status: Acute Plan initial KALEIGH likely due to tubular injury from sepsis; 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 patient now on HD TTS (will switch to MWF schedule for outpatient dialysis- she declines HD today given biopsy today as well, agrees to dialysis tomorrow. Has left permcath placed left SVC on 02/25. no erythema or swelling or drainage at site. patient to start outpatient Dialysis MWF at [facility] on [facility] [place] on Friday, 03/02- shift TBD. 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 Recommends IV daptomycin renally dosed for 6 weeks (receiving 340mg IV and 500mg IV Fridays, since 02/21/25), ceftin 500mg PO q12h for 14 days total, 02/24-03/10/25. phosphorous improving, continue sevelamer H&H stable 9.0 & 27 calcium 8.6, PTH 439, vit D levels pending. continue calcitriol 0.25mg daily recommend daily electrolyte and renal function studies recommend regular blood pressure checks, I&O monitoring avoid nephrotoxins Continue supportive care Discussed with Dr Mcnair Time Spent With Patient Time: Total time managing care of this patient today ____ minutes. Progress Note: Quality Stroke Does the patient have a stroke diagnosis?: No
[2025-02-28] MEDS: Midazolam HCl 2 MG/2 ML VIAL 1 MG IVPUSH ×2 (09:30→09:35)
[2025-02-28] MEDS: fentaNYL citrate/PF 100 MCG/2 ML VIAL 25 MCG IVPUSH ×2 (09:34→09:40)
--- NOTE | 2025-02-28 09:51 | MHC.CM.PN ---
EMR REVIEWED, PER HOSPITALIST PT WILL HAVE RENAL BIOPSY TODAY AND NEPHRO ARRANGING OUTPT HD, TUNNEL CATH PLACED 02/25, CM WILL CONT TO FOLLOW DC NEEDS.
[2025-02-28] MEDS: Sevelamer Carbonate Tablet 800 MG TABLET 1600 MG PO (10:37)
[2025-02-28] MEDS: Acetaminophen 325 MG TABLET 975 MG PO ×2 (10:41→20:26)
--- NOTE | 2025-02-28 12:04 | HO.PM.IMPN ---
Subjective Subjective Date of Service: 02/28/25 Interval History: seen and examined this morning follow up for renal failure, generalized pain reporting ongoing pain (generalized); now with pain at site of permcath since placement as well Review of Systems Review of Systems: Yes all other systems are reviewed and are negative Constitutional Constitutional: Denies chills and Denies fever(s) Physical Exam Vital Signs: Vital Signs: Last Vital Signs Temp 98.5 F 02/28/25 08:00 Pulse 131 H 02/28/25 09:50 Resp 19 02/28/25 11:38 BP 141/88 H 02/28/25 09:50 Pulse Ox 98 02/28/25 09:50 O2 Del Method Room Air 02/28/25 09:50 O2 Flow Rate 2 02/28/25 09:40 FiO2 33 02/18/25 07:18 Oxygen Flow Rate 3 02/21/25 08:00 BMI result Body Mass Index 18.7 Objective Data Active Medications Acetaminophen (Acetaminophen 325 Mg Tablet) 975 mg PO Q8H [facility] Last Admin: 02/28/25 10:41 Dose: 975 mg Documented By: BELKIS Calcitriol (Calcitriol 0.25 Mcg Capsule) 0.25 mcg PO DAILY [facility] Last Admin: 02/28/25 07:37 Dose: 0.25 mcg Documented By: BELKIS Cefuroxime Axetil (Cefuroxime Axetil 500 Mg Tablet) 500 mg PO Q12H [facility] Stop: 03/10/25 08:59 Last Admin: 02/28/25 07:37 Dose: 500 mg Documented By: BELKIS Diphenhydramine HCl (Diphenhydramine Hcl 50 Mg/Ml Vial) 25 mg IVPUSH Q6H PRN PRN Reason: allergy Last Admin: 02/21/25 09:15 Dose: 25 mg Documented By: BELKIS Gabapentin (Gabapentin 100 Mg Capsule) 100 mg PO TID [facility] Last Admin: 02/28/25 07:37 Dose: 100 mg Documented By: BELKIS Heparin Sodium (Porcine) (Heparin Sodium,Porcine 5,000 Unit/Ml Vial) 2,200 unit 40 unit/kg (2200 unit) IVPUSH PROTOCOL BOLUS PRN; Protocol PRN Reason: 40 unit/kg - Heparin Protocol Last Admin: 02/26/25 20:19 Dose: 2,200 unit Documented By: AYDE Heparin Sodium (Porcine) (Heparin Sodium,Porcine 5,000 Unit/Ml Vial) 4,500 unit 80 unit/kg (4500 unit) IVPUSH PROTOCOL BOLUS PRN; Protocol PRN Reason: 80 unit/kg - Heparin Protocol Heparin Sodium (Porcine) (Heparin Sodium,Porcine 5,000 Unit/Ml Vial) 5,000 unit INTRACATH ONCE ONE Stop: 03/01/25 12:01 Hydromorphone HCl (Hydromorphone Hcl 1 Mg/Ml Syringe) 0.5 mg IVPUSH Q4H PRN; Protocol PRN Reason: Pain, Severe (Pain Scale 7-10) Last Admin: 02/28/25 11:38 Dose: 0.5 mg Documented By: BELKIS Hydromorphone HCl (Hydromorphone Hcl 2 Mg Tablet) 2 mg PO Q4H PRN PRN Reason: Pain, Moderate(Pain Scale 4-6) Last Admin: 02/28/25 10:37 Dose: 2 mg Documented By: BELKIS Daptomycin 340 mg/ Sodium (Chloride) 56.8 mls @ 100 mls/hr IV MoWe@1999 [facility] Last Infusion: 02/23/25 22:26 Dose: Infused Documented By: CHERYL Daptomycin 500 mg/ Sodium (Chloride) 60 mls @ 97.959 mls/hr IV Fr@1999 [facility] Last Infusion: 02/25/25 23:56 Dose: Infused Documented By: ZORAN Heparin Sodium/Sodium Chloride (Heparin Sodium,Porcine/1/2ns) 25,000 unit in 250 mls @ 0 mls/hr IVCONT .Q0M [facility]; Protocol Last Titration: 02/28/25 11:26 Dose: 14 units/kg/hr, 7.8 mls/hr Documented By: BELKIS Co-signed By: TIFFANY Loperamide HCl (Loperamide Hcl 2 Mg Capsule) 4 mg PO Q6H PRN PRN Reason: Diarrhea Last Admin: 02/27/25 21:28 Dose: 4 mg Documented By: ROHIT Melatonin (Melatonin 3 Mg Tablet) 6 mg PO BEDTIME PRN PRN Reason: Insomnia Last Admin: 02/27/25 22:51 Dose: 6 mg Documented By: ROHIT Naloxone HCl (Naloxone Hcl 0.4 Mg/Ml Vial) 0.2 mg IVPUSH Q2M PRN PRN Reason: Excessive sedation or RR < 8 Omeprazole (Omeprazole 40 Mg Ismael.) 40 mg PO BID@0630,1630 [facility] Last Admin: 02/28/25 05:41 Dose: 40 mg Documented By: ROHIT Prednisone (Prednisone 20 Mg Tablet) 60 mg PO DAILY [facility] Last Admin: 02/28/25 07:37 Dose: 60 mg Documented By: BELKIS Sevelamer Carbonate (Sevelamer Carbonate Tablet 800 Mg Tablet) 1,600 mg PO TIDWM [facility] Last Admin: 02/28/25 10:37 Dose: 1,600 mg Documented By: BELKIS Sodium Bicarbonate (Sodium Bicarbonate 650 Mg Tablet) 650 mg PO BID [facility] Last Admin: 02/28/25 07:37 Dose: 650 mg Documented By: BELKIS Sodium Chloride (0.9 % Sodium Chloride Flush 3 Ml Syringe) 3 ml IVFLUSH QSHIFT [facility] Last Admin: 02/28/25 07:38 Dose: 3 ml Documented By: BELKIS Labs 02/26/25 02:30 02/26/25 02:30 Labs: Laboratory Results - last 24 hr 02/28/25 07:52 aPTT Heparin Protocol 27.5 L D Assessment and Plan (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 Hospital course further complicated by acute renal failure requiring initiation of hemodialysis. Followed by nephrology service with concern for possible lupus nephritis flare, started on high-dose systemic glucocorticoids. Extubated on 02/15/2025. Normocytic anemia , unknown etiology no overt bleeding ? r/t renal dysfunction Continue oral PPI Previously Seen by GI>no signs of overt bleeding, no indication for EGD at this time HH low, 2 units PRBC ordered Acute renal failure May be multifactorial due to [place] from tubular injury due to sepsis as well as possible active lupus nephritis requiring initiation of HD Received high-dose [id number], transitioned to oral prednisone 60 mg 02/17 Nephrology following continue HD TTS, calcitriol, renvela, sodium bicarb s/p permcath 02/25 renal biopsy today awaiting outpatient HD chair Acute right jugular vein clot provoked, in location of previous IV s/p heparin drip, now on eliquis will need 3 months of AC upon discharge Acute uncontrolled generalized Pain - Improving Multimodal approach for pain reg Schedule Tylenol 975, Gabapentin. Oxycodone doesn't seem to be effective will change to po dilaudid. low dose IV dilaudid (wean dilaudid daily) Severe sepsis due to Polymicrobial bacteremia. Sepsis resolved Blood cultures growing E coli, Klebsiella, MRSA Seen by Cardiology, treatment for infective endocarditis, repeat echo does not visualize tricuspid or pulmonic valves well s/p IV vancomycin, ceftriaxone>seen by ID rec IV dapto (6 weeks) from first negative cultures (02/20) end date 04/03 Completed 8 days of ceftriaxone will switch to 14 days po ceftin Hyponatremia-Resolved Probably dilutional >improved with dialysis Elevated blood pressures. Improving Bp stable Acute respiratory failure with hypoxia due to pneumonia Status post extubation, required HFNC, now weaned to room air Tested + for parainfluenza virus. Mycoplasma IgG + and IgM negative, nonspecific per ID, no need for azithromycin Currently on daptomycin Thrombocytopenia- Resolved Likely due to acute viral illness/sepsis DIC, HLH ruled out Hematology following >no further workup recommended platelets have normalized Sinus tachycardia- intermittent, seems to be due to pain EKG reviewed by cardiology>no further work up recommended at this time Given persistent hypoxia, and tachycardia VQ scan ordered to rule out PE> possibility of pulmonary embolism can not be excluded Discussed with pulmonology, check venous Doppler ultrasound to lower extremities>negative for DVT DVT prophylaxis with SCD boots+ Heparin drip Full code Disposition. PT recommended home with PT when medically clear Quality Stroke Does the patient have a stroke diagnosis?: No VTE Prior VTE?: No VTE Risk Level:: Medical - moderate - high VTE Device Contraindication: N/A - Device Ordered VTE Drug Contraindication: Treatment Not Indicated
[2025-02-28 14:19] LABS: Hematocrit 21.9 % (37.0-47.0); Mean Corpuscular Hemoglobin 30.2 pg (27.0-33.0); Mean Corpuscular Volume 94.4 fL (80.0-98.0); Mean Platelet Volume 9.7 fL (9.4-12.3); NRBC Pct Auto 0.2 /100WBC (0.0-0.2); Red Blood Count 2.32 X10*6/uL (4.20-5.50); Red Cell Distribution Width 17.8 % (11.0-16.0); White Blood Count 16.2 X10*3/uL (4.8-10.8)
[2025-02-28 14:20] LABS: Platelet Count 95 X10*3/uL (160-400)
[2025-02-28 17:42] LABS: Hematocrit 23.4 % (37.0-47.0); Hemoglobin 7.6 g/dl (12.0-16.0)
--- NOTE | 2025-02-28 17:48 | PM.GIPN ---
Subjective Subjective Date of Service: 02/28/25 Interval History: 29 YF with history of SLE complicated by lupus nephritis on long-term corticosteroid therapy, hypertension, anxiety, admitted to [facility] on 02/11/25 with shortness of breath, fever and poor p.o. intake and was found to have acute renal failure requiring renal replacement therapy and respiratory failure requiring mechanical ventilation secondary to sepsis from multifocal pneumonia. Patient was extubated on 02/15 and stepped down to [facility]. Pt was seen by Dr Jaquez on 02/15/25 for evaluation of anemia. Gastroenterology re-consulted due to a decrease in H&H to 7 & 21.9 (H&H was 9 and 27 on 02/26/25). PT had a renal biopsy earlier today. Repeat H&H after 3 hours stable at 7.6 & 23.4 Pt has generalized aches and pains and denies epigastric pain, hx of PUD or GI bleeding She has been having diarrhea with BMs without nelia blood. Critical Care Time (minutes): 20 Physical Exam Vital Signs: Vital Signs: Last Vital Signs Temp 97.4 F 02/28/25 17:39 Pulse 135 H 02/28/25 17:39 Resp 16 02/28/25 17:39 BP 130/78 02/28/25 17:39 Pulse Ox 100 02/28/25 16:30 O2 Del Method Room Air 02/28/25 16:30 O2 Flow Rate 2 02/28/25 09:40 FiO2 33 02/18/25 07:18 Oxygen Flow Rate 3 02/21/25 08:00 BMI result Body Mass Index 18.7 Const: General: ill appearing Nutritional Appearance: underweight GI: Palpation (GI): Soft to palpation, nontender and Hepatomegaly present Extrem: General: No pedal edema Objective Data Labs 02/28/25 17:15 02/26/25 02:30 Labs: Laboratory Results - last 24 hr 02/28/25 02/28/25 02/28/25 07:52 14:10 16:05 WBC 16.2 H RBC 2.32 L D Hgb 7.0 L* D Hct 21.9 L MCV 94.4 MCH 30.2 MCHC 32.0 RDW 17.8 H Plt Count 95 L D MPV 9.7 Absolute Nucleated RBC 0.030 H Nucleated RBC % (auto) 0.2 aPTT Heparin Protocol 27.5 L D Blood Type A Positive Antibody Screen NEGATIVE Crossmatch See Detail 02/28/25 17:15 WBC RBC Hgb 7.6 L Hct 23.4 L MCV MCH MCHC RDW Plt Count MPV Absolute Nucleated RBC Nucleated RBC % (auto) aPTT Heparin Protocol Blood Type Antibody Screen Crossmatch Microbiology Microbiology Results: Microbiology 02/20/25 12:13 Blood - Arterial Blood Culture - Final No growth after 5 days. 02/20/25 12:13 Blood - Arterial Blood Culture - Final No growth after 5 days. 02/16/25 16:36 Blood - Venous Blood Culture - Final No growth after 5 days. 02/15/25 20:03 Blood - Venous Blood Culture - Final No growth after 5 days. 02/16/25 16:36 Blood - Venous Blood Culture - Final Methicillin Res Staph Aureus 02/15/25 20:03 Blood - Venous Blood Culture - Final Methicillin Res Staph Aureus 02/14/25 10:51 Blood - Venous Blood Culture - Final Methicillin Res Staph Aureus 02/14/25 10:27 Blood - Venous Blood Culture - Final Methicillin Res Staph Aureus 02/12/25 09:59 Blood - Venous Blood Culture - Final Methicillin Res Staph Aureus 02/12/25 09:48 Blood - Venous Blood Culture - Final Methicillin Res Staph Aureus 02/11/25 17:44 Blood - Venous Blood Culture - Final Escherichia coli Klebsiella oxytoca 02/11/25 17:17 Blood - Venous Blood Culture - Final Escherichia coli Klebsiella oxytoca Procedures Date of Service Date of Service: 02/28/25 Progress Note: A&P Assessment and plan (1) Anemia: Status: Acute Plan 29 YF with history of SLE complicated by lupus nephritis on long-term corticosteroid therapy, hypertension, anxiety, admitted to [facility] on 02/11/25 with shortness of breath, fever and poor p.o. intake and was found to have acute renal failure requiring renal replacement therapy and respiratory failure requiring mechanical ventilation secondary to sepsis from multifocal pneumonia. Patient was extubated on 02/15 and stepped down to [facility]. Pt was seen by Dr Jaquez on 02/15/25 for evaluation of anemia. Gastroenterology re-consulted due to a decrease in H&H to 7 & 21.9 (H&H was 9 and 27 on 02/26/25). Repeat H&H after 3 hours stable at 7.6 & 23.4 Worsening anemia likely related to renal failure and possible GI blood loss from stress gastritis. (pt had positive occult blood in the stool in the past) Pt is on IV heparin for DVT in the right IJ and is being transitioned to PO Eliquis tonmaria teresa RECOMMENDATIONS: 1. Agree with transfusion of 1 Unit PRBC and monitor CBC 2. Renal US to rule out bleeding at renal bx site 3. Switch from PO to IV PPI - order placed 4. If CBC remains stable, pt can be managed conservatively. 5. If pt has continued decline in CBC post transfusion, upper endoscopy can be scheduled. Pt would need to hold anti-coagulation for the EGD Time Spent With Patient Time: Total time managing care of this patient today ____ minutes. Quality Stroke Does the patient have a stroke diagnosis?: No VTE Prior VTE?: No VTE Risk Level:: Medical - moderate - high VTE Device Contraindication: N/A - Device Ordered VTE Drug Contraindication: Treatment Not Indicated
[2025-02-28 17:51] LABS: PTT Heparin Drip 53.8 SEC (53-77.9)
[2025-02-28] MEDS: Pantoprazole Sodium 40 MG/10 ML VIAL IVPUSH (19:18)
[2025-02-28] MEDS: Apixaban 2.5 MG TABLET PO (20:26)
[2025-02-28] MEDS: SODIUM CHLORIDE 0.9% IV (21:23)
[2025-02-28] MEDS: DAPTOMYCIN IV (21:23)
[2025-02-28 21:34] LABS: Hematocrit 29.4 % (37.0-47.0); Mean Corpuscular Hemoglobin 31.3 pg (27.0-33.0); Mean Corpuscular Volume 92.2 fL (80.0-98.0); Mean Platelet Volume 10.2 fL (9.4-12.3); NRBC Pct Auto 0.2 /100WBC (0.0-0.2); Platelet Count 109 X10*3/uL (160-400); Red Blood Count 3.19 X10*6/uL (4.20-5.50); Red Cell Distribution Width 16.3 % (11.0-16.0)
[2025-02-28 22:09] LABS: Band Neutrophils Percent 4 % (3-5); Lymphocytes Absolute Manual 0.9 X10*3/uL (1.2-4.9); Lymphocytes Percent Manual 5 % (20-40); Metamyelocytes Absolute 1.6 X10*3/uL; Metamyelocytes Percent 9 %; Monocytes Absolute Manual 0.2 X10*3/uL (0.1-1.2); Monocytes Percent Manual 1 % (2-11); Myelocytes Absolute 0.4 X10*/uL; Myelocytes Percent 2 %; Neutrophils Absolute Manual 14.9 X10*3/uL (2.0-8.3); Neutrophils Percent Manual 79 % (45-73)
[2025-02-28 22:10] LABS: Basophilic Stippling 1+ (0-2) /OIF; Burr Cells 1+ (0-2) /OIF; Macrocytosis 1+ (5-14) /OIF; RBC Morphology NOTED
[2025-02-28 22:11] LABS: Large Platelet PRESENT; Platelet Estimate SLIGHTLY DECREASED (NORMAL); Platelet Morphology Comment NOTED
[2025-03-01] VITALS (8 sets, daily range): BP systolic 131–163; BP diastolic 73–91; PULSE 93–120; RESP 16–18; TEMP 36.2–36.8; O2SAT 98–100; BMI 19.1
[2025-03-01] MEDS: Melatonin 3 MG TABLET 6 MG PO ×2 (00:24→20:03)
[2025-03-01] MEDS: HYDROmorphone HCl 1 MG/ML SYRINGE 0.5 MG IVPUSH ×4 (00:25→12:46)
[2025-03-01] MEDS: HYDROmorphone HCl 2 MG TABLET PO ×4 (02:51→20:02)
[2025-03-01] MEDS: Acetaminophen 325 MG TABLET 975 MG PO ×3 (04:31→20:01)
[2025-03-01] MEDS: Pantoprazole Sodium 40 MG/10 ML VIAL IVPUSH ×2 (04:36→17:16)
[2025-03-01 07:36] LABS: Anion Gap 12 (12-20); Blood Urea Nitrogen 33 mg/dL (9-16); Calcium 8.4 mg/dL (8.4-10.2); Carbon Dioxide 28 mmol/L (22-29); Chloride 101 mmol/L (96-108); Creatinine Clr Calc Pharmacy 29.8; Estimated Glomerular Filt Rate 24; Glucose Random 81 mg/dL (60-115); Phosphorus 2.8 mg/dL (2.7-4.5); Potassium 3.4 mmol/L (3.3-5.1); Sodium 138 mmol/L (135-145)
[2025-03-01 07:45] LABS: Parathyroid Hormone Intact 213.1 pg/mL (8.7-77.1)
[2025-03-01] MEDS: Apixaban 2.5 MG TABLET PO (08:00)
[2025-03-01] MEDS: Sevelamer Carbonate Tablet 800 MG TABLET 1600 MG PO ×3 (08:30→17:15)
[2025-03-01] MEDS: cefuroxime axetiL 500 MG TABLET PO ×2 (08:31→20:02)
[2025-03-01] MEDS: Gabapentin 100 MG CAPSULE PO ×3 (08:31→20:02)
[2025-03-01] MEDS: Sodium Bicarbonate 650 MG TABLET PO ×2 (08:31→20:02)
[2025-03-01] MEDS: predniSONE 20 MG TABLET 60 MG PO (08:31)
[2025-03-01] MEDS: 0.9 % Sodium Chloride Flush 3 ML SYRINGE IVFLUSH ×2 (08:32→17:18)
[2025-03-01] MEDS: calcitrioL 0.25 MCG CAPSULE PO (08:33)
--- NOTE | 2025-03-01 08:56 | P.CONGS_ITS ---
<Statement entered by Danis Stewart MD - 03/01/25 12:18> I have seen and evaluated the patient and agree with history, findings, assessment and plan documented by Aggie Lay PA-c. Would continue with anticoagulation no additional treatment required. In addition would recommend CT angio to rule out PE now that she is on formal dialysis. Thank you for allowing us to assist in her care. If there are any questions or concerns please do not hesitate to contact us. History of Present Illness Consult details Consult date: 03/01/25 Narrative: We were re-consulted for Trey, for concerns of a DVT in the jugular. She continues to have complications s/p pneumonia with resp and renal failure. She now has a cath in and is having HD MWF. She also had a renal biopsy performed yesterday. She was found to have a provoked DVT in the right jugular, s/p removal of IV. She was started on Heparin and transistioned to Eliquis 2.5mg bid yesterday, s/p renal biopsy. She has no concerns this morning; she denies shortness of breath, diff breathing, CP, or any pain at the site of the old IV. There is some slight bruising but not tender to palpation. Review of Systems 2 Constitutional: Constitutional: Reports as per HPI and Denies weakness ENT: Reports Normal hearing present and Denies dizziness Cardiovascular: Cardiovascular: Reports as per HPI, Denies chest pain, Denies chest pain at rest, Denies chest pain with activity, Denies dyspnea and Denies dyspnea on exertion Respiratory: Respiratory: Reports as per HPI, Denies cough, Denies dyspnea and Denies dyspnea on exertion Gastrointestinal: Gastrointestinal: Reports as per HPI, Denies abdominal pain, Denies nausea and Denies vomiting Musculoskeletal: Musculoskeletal: Denies numbness Integumentary/Breasts: Skin/Breast: Reports as per HPI, Denies erythema and Denies wounds Neurologic: Reports Normal hearing present, Denies dizziness, Denies numbness, Denies Sensory deficit (Neuro) and Denies weakness Psychiatric: Psychiatric: Reports no additional psychiatric complaints Endocrine: Endocrine: Reports no additional endocrine complaints [facility] Past Medical History Medical History (Updated 02/28/25 @ 17:57 by Leland Dunn MD) Lupus nephritis Pericardial effusion Essential hypertension Rash Acute on chronic anemia Abnormal uterine bleeding Hypertensive urgency Anemia Depression Anxiety Fibromyalgia Lupus Family History Family History Mother Hypertension Type 2 diabetes mellitus Lupus Arthritis Maternal Grandmother Hypertension Type 2 diabetes mellitus Arthritis Family history: reviewed and not pertinent Surgical History Surgical History Hx of hernia repair Social History Social History Household Members: Spouse and Children Housing: Apartment Do you presently have visiting nurse or other home services: No Alcohol intake: former Comment: achy-lupus exacerbation Patient Tobacco Use Status: Current everyday Tobacco user Tobacco use type: Cigarette Cigarette Packs Per Day: 0.5 Years Smoked: 7 Substance Use Type: Marijuana Advance Directives Date on File: 04/03/22 service: No Current occupational status: disabled Meds Allergies Allergy/AdvReac Type Severity Reaction Status Date / Time mycophenolate mofetil AdvReac Intermediate GI upset Verified 02/11/25 16:49 gabapentin AdvReac Unknown Hives Verified 02/11/25 16:49 Active Medications: Current Medications Acetaminophen (Acetaminophen 325 Mg Tablet) 975 mg PO Q8H [facility] Last Admin: 03/01/25 04:31 Dose: 975 mg Apixaban (Apixaban 2.5 Mg Tablet) 2.5 mg PO BID [facility] Last Admin: 02/28/25 20:26 Dose: 2.5 mg Calcitriol (Calcitriol 0.25 Mcg Capsule) 0.25 mcg PO DAILY [facility] Last Admin: 03/01/25 08:33 Dose: 0.25 mcg Cefuroxime Axetil (Cefuroxime Axetil 500 Mg Tablet) 500 mg PO Q12H [facility] Stop: 03/10/25 08:59 Last Admin: 03/01/25 08:31 Dose: 500 mg Diphenhydramine HCl (Diphenhydramine Hcl 50 Mg/Ml Vial) 25 mg IVPUSH Q6H PRN PRN Reason: allergy Last Admin: 02/21/25 09:15 Dose: 25 mg Gabapentin (Gabapentin 100 Mg Capsule) 100 mg PO TID [facility] Last Admin: 03/01/25 08:31 Dose: 100 mg Heparin Sodium (Porcine) (Heparin Sodium,Porcine 5,000 Unit/Ml Vial) 2,200 unit 40 unit/kg (2200 unit) IVPUSH PROTOCOL BOLUS PRN; Protocol PRN Reason: 40 unit/kg - Heparin Protocol Last Admin: 02/26/25 20:19 Dose: 2,200 unit Heparin Sodium (Porcine) (Heparin Sodium,Porcine 5,000 Unit/Ml Vial) 4,500 unit 80 unit/kg (4500 unit) IVPUSH PROTOCOL BOLUS PRN; Protocol PRN Reason: 80 unit/kg - Heparin Protocol Heparin Sodium (Porcine) (Heparin Sodium,Porcine 5,000 Unit/Ml Vial) 5,000 unit INTRACATH ONCE ONE Stop: 03/01/25 12:01 Hydromorphone HCl (Hydromorphone Hcl 1 Mg/Ml Syringe) 0.5 mg IVPUSH Q4H PRN; Protocol PRN Reason: Pain, Severe (Pain Scale 7-10) Last Admin: 03/01/25 08:35 Dose: 0.5 mg Hydromorphone HCl (Hydromorphone Hcl 2 Mg Tablet) 2 mg PO Q4H PRN PRN Reason: Pain, Moderate(Pain Scale 4-6) Last Admin: 03/01/25 02:51 Dose: 2 mg Daptomycin 340 mg/ Sodium (Chloride) 56.8 mls @ 100 mls/hr IV MoWe@1999 [facility] Last Infusion: 02/28/25 22:00 Dose: Infused Daptomycin 500 mg/ Sodium (Chloride) 60 mls @ 97.959 mls/hr IV Fr@1999 [facility] Last Infusion: 02/25/25 23:56 Dose: Infused Loperamide HCl (Loperamide Hcl 2 Mg Capsule) 4 mg PO Q6H PRN PRN Reason: Diarrhea Last Admin: 02/27/25 21:28 Dose: 4 mg Melatonin (Melatonin 3 Mg Tablet) 6 mg PO BEDTIME PRN PRN Reason: Insomnia Last Admin: 03/01/25 00:24 Dose: 6 mg Naloxone HCl (Naloxone Hcl 0.4 Mg/Ml Vial) 0.2 mg IVPUSH Q2M PRN PRN Reason: Excessive sedation or RR < 8 Pantoprazole Sodium (Pantoprazole Sodium 40 Mg/10 Ml Vial) 40 mg IVPUSH BID@0630,1630 [facility] Last Admin: 03/01/25 04:36 Dose: 40 mg Prednisone (Prednisone 20 Mg Tablet) 60 mg PO DAILY [facility] Last Admin: 03/01/25 08:31 Dose: 60 mg Sevelamer Carbonate (Sevelamer Carbonate Tablet 800 Mg Tablet) 1,600 mg PO TIDWM [facility] Last Admin: 03/01/25 08:30 Dose: 1,600 mg Sodium Bicarbonate (Sodium Bicarbonate 650 Mg Tablet) 650 mg PO BID [facility] Last Admin: 03/01/25 08:31 Dose: 650 mg Sodium Chloride (0.9 % Sodium Chloride Flush 3 Ml Syringe) 3 ml IVFLUSH QSHIFT [facility] Last Admin: 03/01/25 08:32 Dose: 3 ml Physical Exam 2 Vital Signs: Vital Signs: Last Vital Signs Temp 97.6 F 03/01/25 07:34 Pulse 104 H 03/01/25 07:34 Resp 18 03/01/25 07:34 BP 131/79 03/01/25 07:34 Pulse Ox 100 03/01/25 07:34 O2 Del Method Room Air 03/01/25 07:34 O2 Flow Rate 2 02/28/25 09:40 FiO2 33 02/18/25 07:18 Oxygen Flow Rate 3 02/21/25 08:00 BMI result Body Mass Index 18.7 Const: General: comfortable and no acute distress O rientation/consciousness: patient oriented x3 HEENT: Ears: hearing grossly normal bilaterally Resp: Effort & Inspection: normal respiratory effort and able to speak in complete sentences Auscultation: clear to auscultation bilaterally Cardio: Rate: regular rate Rhythm: regular rhythm Heart sounds: S1 normal heart sound present and S2 normal heart sound present Bruits: no abdominal aortic bruits, no carotid bruits, no femoral bruits and no renal bruits GI: Palpation (GI): No Abdominal aortic bruit present Neuro: General: patient oriented x3 Cranial nerves: Yes Normal hearing present Sensory Exam: No Sensory deficit (Neuro) Results Labs 02/28/25 20:47 03/01/25 07:02 Labs: Abnormal lab results 02/28/25 02/28/25 02/28/25 Range/Units 14:10 16:05 17:15 WBC 16.2 H (4.8-10.8) X10*3/uL RBC 2.32 L D (4.20-5.50) X10*6/uL Hgb 7.0 L* D 7.6 L (12.0-16.0) g/dl Hct 21.9 L 23.4 L (37.0-47.0) % RDW 17.8 H (11.0-16.0) % Plt Count 95 L D (160-400) X10*3/uL Absolute Nucleated RBC 0.030 H (0.0-0.012) X10*3/uL Neutrophils % (Manual) (45-73) % Lymphocytes % (Manual) (20-40) % Monocytes % (Manual) (2-11) % Abs Neuts (Manual) (2.0-8.3) X10*3/uL Lymphocytes # (Manual) (1.2-4.9) X10*3/uL BUN (9-16) mg/dL Creatinine (0.5-1.4) mg/dL PTH Intact (8.7-77.1) pg/mL Crossmatch See Detail 02/28/25 03/01/25 Range/Units 20:47 07:02 WBC 18.0 H (4.8-10.8) X10*3/uL RBC 3.19 L D (4.20-5.50) X10*6/uL Hgb 10.0 L D (12.0-16.0) g/dl Hct 29.4 L D (37.0-47.0) % RDW 16.3 H (11.0-16.0) % Plt Count 109 L (160-400) X10*3/uL Absolute Nucleated RBC 0.040 H (0.0-0.012) X10*3/uL Neutrophils % (Manual) 79 H (45-73) % Lymphocytes % (Manual) 5 L (20-40) % Monocytes % (Manual) 1 L (2-11) % Abs Neuts (Manual) 14.9 H (2.0-8.3) X10*3/uL Lymphocytes # (Manual) 0.9 L (1.2-4.9) X10*3/uL BUN 33 H (9-16) mg/dL Creatinine 2.40 H (0.5-1.4) mg/dL PTH Intact 213.1 H (8.7-77.1) pg/mL Crossmatch Short CBC 02/28/25 02/28/25 02/28/25 Range/Units 14:10 17:15 20:47 WBC 16.2 H 18.0 H (4.8-10.8) X10*3/uL Hgb 7.0 L* D 7.6 L 10.0 L D (12.0-16.0) g/dl Hct 21.9 L 23.4 L 29.4 L D (37.0-47.0) % Plt Count 95 L D 109 L (160-400) X10*3/uL BMP 03/01/25 07:02 Sodium 138 Potassium 3.4 D Chloride 101 Carbon Dioxide 28 BUN 33 H Creatinine 2.40 H Calcium 8.4 Urine 02/11/25 Range/Units 20:51 Urine Color Dark Yellow Urine Appearance Cloudy Urine pH 5.0 (5.0-9.0) Ur Specific [place] >= 1.030 H (1.005-1.025) Urine Protein >=1000 (4+) H (Neg-Trace) mg/dL Urine Glucose (UA) Negative (Negative) mg/dL All other labs normal. Assessment and Plan (1) Pulmonary embolism: Qualifiers: Pulmonary embolism type: unspecified Chronicity: unspecified Acute cor pulmonale presence: unspecified Qualified Code(s): I26.99 - Other pulmonary embolism without acute cor pulmonale Status: Acute Plan We were re-consulted for Trey for concerns of a jugular DVT. She was started on Heparin and transistioned to renally dosed Eliquis yesterday, 2.5mg bid. There is no acute vascular surgical intervention at this point. We would recommend, now that the pt is on HD, for a PE CTA protocol due to the pulmonary embolism she has been diagnosed with. We would continue on oral AC, minimum of 3m outpatient. We will continue to monitor. If there are any questions or concerns, please do not hesitate to reach out to us. Procedures Date of Service Date of Service: 03/01/25
[2025-03-01 09:44] LABS: Hematocrit 28.2 % (37.0-47.0); Mean Corpuscular HGB Conc 31.9 g/dl (31.0-35.0); Mean Corpuscular Hemoglobin 30.7 pg (27.0-33.0); Mean Corpuscular Volume 96.2 fL (80.0-98.0); Mean Platelet Volume 10.1 fL (9.4-12.3); NRBC Pct Auto 0.4 /100WBC (0.0-0.2); Platelet Count 95 X10*3/uL (160-400); Red Blood Count 2.93 X10*6/uL (4.20-5.50); Red Cell Distribution Width 17.1 % (11.0-16.0); White Blood Count 13.8 X10*3/uL (4.8-10.8)
--- NOTE | 2025-03-01 11:00 | P.PNNP_ITS ---
Subjective Subjective Date of Service: 03/01/25 Principal diagnosis: MRSA bacteremia Interval history: seen and examined this morning following for renal failure now on HD patient had a drop in H&H yesterday so remained overnight and plan to stay for workup renal imaging did not show hematoma (biopsy yesetrday morning). Physical Exam 2 Vital Signs: Vital Signs: Last Vital Signs Temp 97.9 F 03/01/25 11:17 Pulse 120 H 03/01/25 11:17 Resp 16 03/01/25 11:17 BP 131/73 03/01/25 11:17 Pulse Ox 98 03/01/25 11:17 O2 Del Method Room Air 03/01/25 11:17 O2 Flow Rate 2 02/28/25 09:40 FiO2 33 02/18/25 07:18 Oxygen Flow Rate 3 02/21/25 08:00 BMI result Body Mass Index 18.7 Const: General: no acute distress, alert and awake Resp: Effort & Inspection: normal respiratory effort Auscultation: clear to auscultation bilaterally Cardio: Rate: regular rate Rhythm: regular rhythm Heart sounds: S1 normal heart sound present and S2 normal heart sound present GI: Palpation (GI): Soft to palpation and nontender Skin: Rashes: no rashes Extrem: General: No edema Objective Data Labs 03/01/25 12:07 03/01/25 07:02 Labs: Laboratory Results - last 24 hr 02/28/25 02/28/25 02/28/25 14:10 16:05 17:15 WBC 16.2 H RBC 2.32 L D Hgb 7.0 L* D 7.6 L Hct 21.9 L 23.4 L MCV 94.4 MCH 30.2 MCHC 32.0 RDW 17.8 H Plt Count 95 L D MPV 9.7 Immature Gran % (Auto) Neut % (Auto) Lymph % (Auto) [place] % (Auto) Eos % (Auto) Baso % (Auto) Lymph # (Auto) [place] # (Auto) Eos # (Auto) Baso # (Auto) Abs Immat Gran (auto) Absolute Neuts (auto) Absolute Nucleated RBC 0.030 H Nucleated RBC % (auto) 0.2 Neutrophils % (Manual) Band Neutrophils % Lymphocytes % (Manual) Monocytes % (Manual) Metamyelocytes % Myelocytes % Abs Neuts (Manual) Lymphocytes # (Manual) Monocytes # (Manual) Metamyelocytes # Myelocytes # Platelet Estimate Large Platelets Plt Morphology Comment RBC Morphology Basophilic Stippling Macrocytosis [place] Cells Hold Purple Top aPTT Heparin Protocol 53.8 D Sodium Potassium Chloride Carbon Dioxide Anion Gap BUN Creatinine Estim Creat Clear Calc Estimated GFR Random Glucose Calcium Phosphorus PTH Intact Blood Type A Positive Antibody Screen NEGATIVE Crossmatch See Detail 02/28/25 03/01/25 03/01/25 20:47 07:02 09:12 WBC 18.0 H 13.8 H RBC 3.19 L D 2.93 L Hgb 10.0 L D 9.0 L Hct 29.4 L D 28.2 L MCV 92.2 96.2 MCH 31.3 30.7 MCHC 34.0 31.9 RDW 16.3 H 17.1 H Plt Count 109 L 95 L MPV 10.2 10.1 Immature Gran % (Auto) Cancelled Neut % (Auto) Cancelled Lymph % (Auto) Cancelled [place] % (Auto) Cancelled Eos % (Auto) Cancelled Baso % (Auto) Cancelled Lymph # (Auto) Cancelled [place] # (Auto) Cancelled Eos # (Auto) Cancelled Baso # (Auto) Cancelled Abs Immat Gran (auto) Cancelled Absolute Neuts (auto) Cancelled Absolute Nucleated RBC 0.040 H 0.050 H Nucleated RBC % (auto) 0.2 0.4 H Neutrophils % (Manual) 79 H Band Neutrophils % 4 Lymphocytes % (Manual) 5 L Monocytes % (Manual) 1 L Metamyelocytes % 9 Myelocytes % 2 Abs Neuts (Manual) 14.9 H Lymphocytes # (Manual) 0.9 L Monocytes # (Manual) 0.2 Metamyelocytes # 1.6 Myelocytes # 0.4 Platelet Estimate SLIGHTLY DECREASED Large Platelets PRESENT Plt Morphology Comment NOTED RBC Morphology NOTED Basophilic Stippling 1+ (0-2) Macrocytosis 1+ (5-14) [place] Cells 1+ (0-2) Hold Purple Top SEE NOTE aPTT Heparin Protocol Sodium 138 Potassium 3.4 D Chloride 101 Carbon Dioxide 28 Anion Gap 12 BUN 33 H Creatinine 2.40 H Estim Creat Clear Calc 29.8 Estimated GFR 24 Random Glucose 81 Calcium 8.4 Phosphorus 2.8 PTH Intact 213.1 H Blood Type Antibody Screen Crossmatch 03/01/25 12:07 WBC RBC Hgb 8.7 L Hct 26.2 L MCV MCH MCHC RDW Plt Count MPV Immature Gran % (Auto) Neut % (Auto) Lymph % (Auto) [place] % (Auto) Eos % (Auto) Baso % (Auto) Lymph # (Auto) [place] # (Auto) Eos # (Auto) Baso # (Auto) Abs Immat Gran (auto) Absolute Neuts (auto) Absolute Nucleated RBC Nucleated RBC % (auto) Neutrophils % (Manual) Band Neutrophils % Lymphocytes % (Manual) Monocytes % (Manual) Metamyelocytes % Myelocytes % Abs Neuts (Manual) Lymphocytes # (Manual) Monocytes # (Manual) Metamyelocytes # Myelocytes # Platelet Estimate Large Platelets Plt Morphology Comment RBC Morphology Basophilic Stippling Macrocytosis [place] Cells Hold Purple Top aPTT Heparin Protocol Sodium Potassium Chloride Carbon Dioxide Anion Gap BUN Creatinine Estim Creat Clear Calc Estimated GFR Random Glucose Calcium Phosphorus PTH Intact Blood Type Antibody Screen Crossmatch Microbiology Microbiology Results: Microbiology 02/20/25 12:13 Blood - Arterial Blood Culture - Final No growth after 5 days. 02/20/25 12:13 Blood - Arterial Blood Culture - Final No growth after 5 days. 02/16/25 16:36 Blood - Venous Blood Culture - Final No growth after 5 days. 02/15/25 20:03 Blood - Venous Blood Culture - Final No growth after 5 days. 02/16/25 16:36 Blood - Venous Blood Culture - Final Methicillin Res Staph Aureus 02/15/25 20:03 Blood - Venous Blood Culture - Final Methicillin Res Staph Aureus 02/14/25 10:51 Blood - Venous Blood Culture - Final Methicillin Res Staph Aureus 02/14/25 10:27 Blood - Venous Blood Culture - Final Methicillin Res Staph Aureus 02/12/25 09:59 Blood - Venous Blood Culture - Final Methicillin Res Staph Aureus 02/12/25 09:48 Blood - Venous Blood Culture - Final Methicillin Res Staph Aureus 02/11/25 17:44 Blood - Venous Blood Culture - Final Escherichia coli Klebsiella oxytoca 02/11/25 17:17 Blood - Venous Blood Culture - Final Escherichia coli Klebsiella oxytoca Procedures Date of Service Date of Service: 03/01/25 Assessment & Plan Assessment and plan (1) Acute renal failure (ARF): Status: Acute (2) Systemic lupus erythematosus: Status: Acute Plan initial KALEIGH likely due to tubular injury from sepsis; 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 patient now on HD TTS (will switch to MWF schedule for outpatient dialysis- she declines HD today given biopsy today as well, agrees to dialysis tomorrow. Has left permcath placed left SVC on 02/25. no erythema or swelling or drainage at site. patient to start outpatient Dialysis MWF at [facility] on [facility] in [facility]. Start date moved to Friday, 03/04, time TBD, due to H&H drop. She will need daptomycin IV 350mg Friday, Friday and 500mg Fridays post dialysis through 04/04/25 for total of 6 weeks. hospital home health care case manager should liase with [facility] unit before D/c and ensure transportation is in order for patient. 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 Recommends IV daptomycin renally dosed for 6 weeks (receiving 340mg IV and 500mg IV Fridays, since 02/21/25), ceftin 500mg PO q12h for 14 days total, 02/24-03/10/25. phosphorous 2.8, continue sevelamer calcium 8.6, PTH 439, vit D levels pending. continue calcitriol 0.25mg daily H&H 9.0 &28 this a.m. (2 units RBCs administered yesterday after H&H dropped to 7.0 & 21.9)- continue to monitor closely recommend daily electrolyte and renal function studies recommend regular blood pressure checks, I&O monitoring avoid nephrotoxins Continue supportive care Discussed with Dr Mcnair Time Spent With Patient Time: Total time managing care of this patient today ____ minutes. Progress Note: Quality Stroke Does the patient have a stroke diagnosis?: No
--- NOTE | 2025-03-01 11:30 | P.PNIM_ITS ---
Subjective Subjective Date of Service: 03/01/25 Interval History: seen and examined this morning follow up for renal failure, generalized pain reporting ongoing pain (generalized); now with pain at site of permcath since placement as well Review of Systems Review of Systems: Yes all other systems are reviewed and are negative Constitutional Constitutional: Denies chills and Denies fever(s) Physical Exam 2 Vital Signs: Vital Signs: Last Vital Signs Temp 97.9 F 03/01/25 11:17 Pulse 120 H 03/01/25 11:17 Resp 16 03/01/25 11:17 BP 131/73 03/01/25 11:17 Pulse Ox 98 03/01/25 11:17 O2 Del Method Room Air 03/01/25 11:17 O2 Flow Rate 2 02/28/25 09:40 FiO2 33 02/18/25 07:18 Oxygen Flow Rate 3 02/21/25 08:00 BMI result Body Mass Index 18.7 Appearing in no acute distress lung sounds are clear to auscultation heart regular rate rhythm, clear S1, S2 positive bowel sounds, abdomen is soft, nontender neuro patient is alert x3, no focal deficits permacath left chest Objective Data Active Medications Acetaminophen (Acetaminophen 325 Mg Tablet) 975 mg PO Q8H [facility] Last Admin: 03/01/25 04:31 Dose: 975 mg Documented By: ROHIT Apixaban (Apixaban 2.5 Mg Tablet) 2.5 mg PO BID [facility] Last Admin: 03/01/25 08:00 Dose: 2.5 mg Documented By: TIFFANY Calcitriol (Calcitriol 0.25 Mcg Capsule) 0.25 mcg PO DAILY [facility] Last Admin: 03/01/25 08:33 Dose: 0.25 mcg Documented By: TIFFANY Cefuroxime Axetil (Cefuroxime Axetil 500 Mg Tablet) 500 mg PO Q12H [facility] Stop: 03/10/25 08:59 Last Admin: 03/01/25 08:31 Dose: 500 mg Documented By: TIFFANY Diphenhydramine HCl (Diphenhydramine Hcl 50 Mg/Ml Vial) 25 mg IVPUSH Q6H PRN PRN Reason: allergy Last Admin: 02/21/25 09:15 Dose: 25 mg Documented By: BELKIS Gabapentin (Gabapentin 100 Mg Capsule) 100 mg PO TID [facility] Last Admin: 03/01/25 08:31 Dose: 100 mg Documented By: TIFFANY Heparin Sodium (Porcine) (Heparin Sodium,Porcine 5,000 Unit/Ml Vial) 2,200 unit 40 unit/kg (2200 unit) IVPUSH PROTOCOL BOLUS PRN; Protocol PRN Reason: 40 unit/kg - Heparin Protocol Last Admin: 02/26/25 20:19 Dose: 2,200 unit Documented By: AYDE Heparin Sodium (Porcine) (Heparin Sodium,Porcine 5,000 Unit/Ml Vial) 4,500 unit 80 unit/kg (4500 unit) IVPUSH PROTOCOL BOLUS PRN; Protocol PRN Reason: 80 unit/kg - Heparin Protocol Heparin Sodium (Porcine) (Heparin Sodium,Porcine 5,000 Unit/Ml Vial) 5,000 unit INTRACATH ONCE ONE Stop: 03/01/25 12:01 Hydromorphone HCl (Hydromorphone Hcl 1 Mg/Ml Syringe) 0.5 mg IVPUSH Q4H PRN; Protocol PRN Reason: Pain, Severe (Pain Scale 7-10) Last Admin: 03/01/25 08:35 Dose: 0.5 mg Documented By: TIFFANY Hydromorphone HCl (Hydromorphone Hcl 2 Mg Tablet) 2 mg PO Q4H PRN PRN Reason: Pain, Moderate(Pain Scale 4-6) Last Admin: 03/01/25 11:00 Dose: 2 mg Documented By: TIFFANY Daptomycin 340 mg/ Sodium (Chloride) 56.8 mls @ 100 mls/hr IV MoWe@1999 [facility] Last Infusion: 02/28/25 22:00 Dose: Infused Documented By: ROHIT Daptomycin 500 mg/ Sodium (Chloride) 60 mls @ 97.959 mls/hr IV Fr@1999 [facility] Last Infusion: 02/25/25 23:56 Dose: Infused Documented By: ZORAN Loperamide HCl (Loperamide Hcl 2 Mg Capsule) 4 mg PO Q6H PRN PRN Reason: Diarrhea Last Admin: 02/27/25 21:28 Dose: 4 mg Documented By: ROHIT Melatonin (Melatonin 3 Mg Tablet) 6 mg PO BEDTIME PRN PRN Reason: Insomnia Last Admin: 03/01/25 00:24 Dose: 6 mg Documented By: ROHIT Naloxone HCl (Naloxone Hcl 0.4 Mg/Ml Vial) 0.2 mg IVPUSH Q2M PRN PRN Reason: Excessive sedation or RR < 8 Pantoprazole Sodium (Pantoprazole Sodium 40 Mg/10 Ml Vial) 40 mg IVPUSH BID@0630,1630 [facility] Last Admin: 03/01/25 04:36 Dose: 40 mg Documented By: ROHIT Prednisone (Prednisone 20 Mg Tablet) 60 mg PO DAILY [facility] Last Admin: 03/01/25 08:31 Dose: 60 mg Documented By: TIFFANY Sevelamer Carbonate (Sevelamer Carbonate Tablet 800 Mg Tablet) 1,600 mg PO TIDWM [facility] Last Admin: 03/01/25 08:30 Dose: 1,600 mg Documented By: TIFFANY Sodium Bicarbonate (Sodium Bicarbonate 650 Mg Tablet) 650 mg PO BID [facility] Last Admin: 03/01/25 08:31 Dose: 650 mg Documented By: TIFFANY Sodium Chloride (0.9 % Sodium Chloride Flush 3 Ml Syringe) 3 ml IVFLUSH QSHIFT [facility] Last Admin: 03/01/25 08:32 Dose: 3 ml Documented By: TIFFANY Labs 03/01/25 09:12 03/01/25 07:02 Labs: Laboratory Results - last 24 hr 02/28/25 02/28/25 02/28/25 14:10 16:05 17:15 MCV 94.4 MCH 30.2 MCHC 32.0 RDW 17.8 H Plt Count 95 L D MPV 9.7 Immature Gran % (Auto) Neut % (Auto) Lymph % (Auto) [place] % (Auto) Eos % (Auto) Baso % (Auto) Lymph # (Auto) [place] # (Auto) Eos # (Auto) Baso # (Auto) Abs Immat Gran (auto) Absolute Neuts (auto) Absolute Nucleated RBC 0.030 H Nucleated RBC % (auto) 0.2 Neutrophils % (Manual) Band Neutrophils % Lymphocytes % (Manual) Monocytes % (Manual) Metamyelocytes % Myelocytes % Abs Neuts (Manual) Lymphocytes # (Manual) Monocytes # (Manual) Metamyelocytes # Myelocytes # Platelet Estimate Large Platelets Plt Morphology Comment RBC Morphology Basophilic Stippling Macrocytosis [place] Cells Hold Purple Top aPTT Heparin Protocol 53.8 D Anion Gap Estim Creat Clear Calc Estimated GFR Random Glucose Calcium Phosphorus PTH Intact Blood Type A Positive Antibody Screen NEGATIVE Crossmatch See Detail 02/28/25 03/01/25 03/01/25 20:47 07:02 09:12 MCV 92.2 96.2 MCH 31.3 30.7 MCHC 34.0 31.9 RDW 16.3 H 17.1 H Plt Count 109 L 95 L MPV 10.2 10.1 Immature Gran % (Auto) Cancelled Neut % (Auto) Cancelled Lymph % (Auto) Cancelled [place] % (Auto) Cancelled Eos % (Auto) Cancelled Baso % (Auto) Cancelled Lymph # (Auto) Cancelled [place] # (Auto) Cancelled Eos # (Auto) Cancelled Baso # (Auto) Cancelled Abs Immat Gran (auto) Cancelled Absolute Neuts (auto) Cancelled Absolute Nucleated RBC 0.040 H 0.050 H Nucleated RBC % (auto) 0.2 0.4 H Neutrophils % (Manual) 79 H Band Neutrophils % 4 Lymphocytes % (Manual) 5 L Monocytes % (Manual) 1 L Metamyelocytes % 9 Myelocytes % 2 Abs Neuts (Manual) 14.9 H Lymphocytes # (Manual) 0.9 L Monocytes # (Manual) 0.2 Metamyelocytes # 1.6 Myelocytes # 0.4 Platelet Estimate SLIGHTLY DECREASED Large Platelets PRESENT Plt Morphology Comment NOTED RBC Morphology NOTED Basophilic Stippling 1+ (0-2) Macrocytosis 1+ (5-14) [place] Cells 1+ (0-2) Hold Purple Top SEE NOTE aPTT Heparin Protocol Anion Gap 12 Estim Creat Clear Calc 29.8 Estimated GFR 24 Random Glucose 81 Calcium 8.4 Phosphorus 2.8 PTH Intact 213.1 H Blood Type Antibody Screen Crossmatch Assessment and Plan (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 Hospital course further complicated by acute renal failure requiring initiation of hemodialysis. Followed by nephrology service with concern for possible lupus nephritis flare, started on high-dose systemic glucocorticoids. Extubated on 02/15/2025. Normocytic anemia , unknown etiology no overt bleeding ? r/t renal dysfunction IV PPI Previously Seen by GI>no signs of overt bleeding, no indication for EGD at this time HH low, 2 units PRBC ordered Acute renal failure May be multifactorial due to KALEIGH from tubular injury due to sepsis as well as possible active lupus nephritis requiring initiation of HD Received high-dose [id number], transitioned to oral prednisone 60 mg 02/17 Nephrology following continue HD TTS, calcitriol, renvela, sodium bicarb s/p permcath 02/25 renal biopsy 02/28/25 o/p dialysis in [place] Acute right jugular vein clot provoked, in location of previous IV s/p heparin drip, now on eliquis will need 3 months of AC upon discharge vascular surgery input Acute uncontrolled generalized Pain - Improving Multimodal approach for pain reg Schedule Tylenol 975, Gabapentin. Oxycodone doesn't seem to be effective will change to po dilaudid. low dose IV dilaudid (wean dilaudid daily) Severe sepsis due to Polymicrobial bacteremia. Sepsis resolved Blood cultures growing E coli, Klebsiella, MRSA Seen by Cardiology, treatment for infective endocarditis, repeat echo does not visualize tricuspid or pulmonic valves well s/p IV vancomycin, ceftriaxone>seen by ID rec IV dapto (6 weeks) from first negative cultures (02/20) end date 04/03 Completed 8 days of ceftriaxone will switch to 14 days po ceftin Hyponatremia>Resolved Probably dilutional >improved with dialysis Elevated blood pressures. Improving Bp stable Acute respiratory failure with hypoxia due to pneumonia Status post extubation, required HFNC, now weaned to room air Tested + for parainfluenza virus. Mycoplasma IgG + and IgM negative, nonspecific per ID, no need for azithromycin Currently on daptomycin Thrombocytopenia- Resolved Likely due to acute viral illness/sepsis DIC, HLH ruled out Hematology following >no further workup recommended platelets have normalized Sinus tachycardia- intermittent, seems to be due to pain EKG reviewed by cardiology>no further work up recommended at this time Given persistent hypoxia, and tachycardia VQ scan ordered to rule out PE> possibility of pulmonary embolism can not be excluded Discussed with pulmonology, check venous Doppler ultrasound to lower extremities>negative for DVT DVT prophylaxis with SCD boots and eliquis Full code Disposition. PT recommended home with PT when medically clear Quality Stroke Does the patient have a stroke diagnosis?: No VTE Prior VTE?: No VTE Risk Level:: Medical - moderate - high VTE Device Contraindication: N/A - Device Ordered VTE Drug Contraindication: Treatment Not Indicated
[2025-03-01 12:15] LABS: Hematocrit 26.2 % (37.0-47.0); Hemoglobin 8.7 g/dl (12.0-16.0)
--- NOTE | 2025-03-01 13:24 | PM.GIPN ---
Subjective Subjective Date of Service: 03/01/25 Interval History: anemic having diarrhea with melenic appearing stool denies abdominal pain no n/v c/o pain in legs, and over port site Critical Care Time (minutes): 0 Physical Exam Vital Signs: Vital Signs: Last Vital Signs Temp 97.9 F 03/01/25 11:17 Pulse 120 H 03/01/25 11:17 Resp 16 03/01/25 11:17 BP 131/73 03/01/25 11:17 Pulse Ox 98 03/01/25 11:17 O2 Del Method Room Air 03/01/25 11:17 O2 Flow Rate 2 02/28/25 09:40 FiO2 33 02/18/25 07:18 Oxygen Flow Rate 3 02/21/25 08:00 BMI result Body Mass Index 18.7 EXAM: GENERAL: The patient is frail, weak VITAL SIGNS:see workflow HEENT: Nonicteric sclerae, PERRLA, EOMI. Oropharynx clear. Moist mucous membranes. Conjunctivae appear well perfused. No thyroid mass. CHEST: Chest wall is nontender. HEART: Regular rate and rhythm without murmurs. LUNGS: Clear to auscultation bilaterally. ABDOMEN: Soft, positive bowel sounds, nontender, no organomegaly.no flank tenderness SKIN: No rash, no excessive bruising, petechiae, or purpura. NEUROLOGIC: Cranial nerves II-XII intact without motor/sensory deficit. Psych: normal affect Objective Data Labs 03/01/25 12:07 03/01/25 07:02 Labs: Laboratory Results - last 24 hr 02/28/25 02/28/25 02/28/25 14:10 16:05 17:15 WBC 16.2 H RBC 2.32 L D Hgb 7.0 L* D 7.6 L Hct 21.9 L 23.4 L MCV 94.4 MCH 30.2 MCHC 32.0 RDW 17.8 H Plt Count 95 L D MPV 9.7 Immature Gran % (Auto) Neut % (Auto) Lymph % (Auto) [place] % (Auto) Eos % (Auto) Baso % (Auto) Lymph # (Auto) [place] # (Auto) Eos # (Auto) Baso # (Auto) Abs Immat Gran (auto) Absolute Neuts (auto) Absolute Nucleated RBC 0.030 H Nucleated RBC % (auto) 0.2 Neutrophils % (Manual) Band Neutrophils % Lymphocytes % (Manual) Monocytes % (Manual) Metamyelocytes % Myelocytes % Abs Neuts (Manual) Lymphocytes # (Manual) Monocytes # (Manual) Metamyelocytes # Myelocytes # Platelet Estimate Large Platelets Plt Morphology Comment RBC Morphology Basophilic Stippling Macrocytosis [place] Cells Hold Purple Top aPTT Heparin Protocol 53.8 D Sodium Potassium Chloride Carbon Dioxide Anion Gap BUN Creatinine Estim Creat Clear Calc Estimated GFR Random Glucose Calcium Phosphorus PTH Intact Blood Type A Positive Antibody Screen NEGATIVE Crossmatch See Detail 02/28/25 03/01/25 03/01/25 20:47 07:02 09:12 WBC 18.0 H 13.8 H RBC 3.19 L D 2.93 L Hgb 10.0 L D 9.0 L Hct 29.4 L D 28.2 L MCV 92.2 96.2 MCH 31.3 30.7 MCHC 34.0 31.9 RDW 16.3 H 17.1 H Plt Count 109 L 95 L MPV 10.2 10.1 Immature Gran % (Auto) Cancelled Neut % (Auto) Cancelled Lymph % (Auto) Cancelled [place] % (Auto) Cancelled Eos % (Auto) Cancelled Baso % (Auto) Cancelled Lymph # (Auto) Cancelled [place] # (Auto) Cancelled Eos # (Auto) Cancelled Baso # (Auto) Cancelled Abs Immat Gran (auto) Cancelled Absolute Neuts (auto) Cancelled Absolute Nucleated RBC 0.040 H 0.050 H Nucleated RBC % (auto) 0.2 0.4 H Neutrophils % (Manual) 79 H Band Neutrophils % 4 Lymphocytes % (Manual) 5 L Monocytes % (Manual) 1 L Metamyelocytes % 9 Myelocytes % 2 Abs Neuts (Manual) 14.9 H Lymphocytes # (Manual) 0.9 L Monocytes # (Manual) 0.2 Metamyelocytes # 1.6 Myelocytes # 0.4 Platelet Estimate SLIGHTLY DECREASED Large Platelets PRESENT Plt Morphology Comment NOTED RBC Morphology NOTED Basophilic Stippling 1+ (0-2) Macrocytosis 1+ (5-14) [place] Cells 1+ (0-2) Hold Purple Top SEE NOTE aPTT Heparin Protocol Sodium 138 Potassium 3.4 D Chloride 101 Carbon Dioxide 28 Anion Gap 12 BUN 33 H Creatinine 2.40 H Estim Creat Clear Calc 29.8 Estimated GFR 24 Random Glucose 81 Calcium 8.4 Phosphorus 2.8 PTH Intact 213.1 H Blood Type Antibody Screen Crossmatch 03/01/25 12:07 WBC RBC Hgb 8.7 L Hct 26.2 L MCV MCH MCHC RDW Plt Count MPV Immature Gran % (Auto) Neut % (Auto) Lymph % (Auto) [place] % (Auto) Eos % (Auto) Baso % (Auto) Lymph # (Auto) [place] # (Auto) Eos # (Auto) Baso # (Auto) Abs Immat Gran (auto) Absolute Neuts (auto) Absolute Nucleated RBC Nucleated RBC % (auto) Neutrophils % (Manual) Band Neutrophils % Lymphocytes % (Manual) Monocytes % (Manual) Metamyelocytes % Myelocytes % Abs Neuts (Manual) Lymphocytes # (Manual) Monocytes # (Manual) Metamyelocytes # Myelocytes # Platelet Estimate Large Platelets Plt Morphology Comment RBC Morphology Basophilic Stippling Macrocytosis [place] Cells Hold Purple Top aPTT Heparin Protocol Sodium Potassium Chloride Carbon Dioxide Anion Gap BUN Creatinine Estim Creat Clear Calc Estimated GFR Random Glucose Calcium Phosphorus PTH Intact Blood Type Antibody Screen Crossmatch Microbiology Microbiology Results: Microbiology 02/20/25 12:13 Blood - Arterial Blood Culture - Final No growth after 5 days. 02/20/25 12:13 Blood - Arterial Blood Culture - Final No growth after 5 days. 02/16/25 16:36 Blood - Venous Blood Culture - Final No growth after 5 days. 02/15/25 20:03 Blood - Venous Blood Culture - Final No growth after 5 days. 02/16/25 16:36 Blood - Venous Blood Culture - Final Methicillin Res Staph Aureus 02/15/25 20:03 Blood - Venous Blood Culture - Final Methicillin Res Staph Aureus 02/14/25 10:51 Blood - Venous Blood Culture - Final Methicillin Res Staph Aureus 02/14/25 10:27 Blood - Venous Blood Culture - Final Methicillin Res Staph Aureus 02/12/25 09:59 Blood - Venous Blood Culture - Final Methicillin Res Staph Aureus 02/12/25 09:48 Blood - Venous Blood Culture - Final Methicillin Res Staph Aureus 02/11/25 17:44 Blood - Venous Blood Culture - Final Escherichia coli Klebsiella oxytoca 02/11/25 17:17 Blood - Venous Blood Culture - Final Escherichia coli Klebsiella oxytoca Procedures Date of Service Date of Service: 03/01/25 Progress Note: A&P Assessment and plan (1) Anemia: Status: Acute Plan 1/ anemia with melenic stool, prob stress gastritis and mayeb also due to steroids, could be PUD as well, but needs AC for DVT PLAN: /1- hold eliquis, can go back on heparin and EGD on , stop heparin about 6 hrs before 2/ cont with PPI, IV as doing for now Time Spent With Patient Time: Total time managing care of this patient today ____ minutes. Quality Stroke Does the patient have a stroke diagnosis?: No VTE Prior VTE?: No VTE Risk Level:: Medical - moderate - high VTE Device Contraindication: N/A - Device Ordered VTE Drug Contraindication: Treatment Not Indicated
[2025-03-01] MEDS: diazePAM 10 MG/2 ML CARTRIDGE IVPUSH (18:00)
[2025-03-01 18:19] LABS: Hematocrit 25.2 % (37.0-47.0); Hemoglobin 8.5 g/dl (12.0-16.0); Mean Corpuscular HGB Conc 33.7 g/dl (31.0-35.0); Mean Corpuscular Hemoglobin 31.5 pg (27.0-33.0); Mean Corpuscular Volume 93.3 fL (80.0-98.0); Mean Platelet Volume 11.2 fL (9.4-12.3); NRBC Pct Auto 0.1 /100WBC (0.0-0.2); Platelet Count 118 X10*3/uL (160-400); Red Cell Distribution Width 17.3 % (11.0-16.0)
[2025-03-01 18:31] LABS: Prothrombin Time 11.3 SEC (10.9-12.4)
[2025-03-01 18:34] LABS: PTT Heparin Drip 31.6 SEC (53-77.9)
[2025-03-01] MEDS: Heparin Sodium,Porcine/1/2NS 25,000 UNIT/250 ML IV.SOLN 6.84 UNIT IVCONT (18:56)
[2025-03-02 00:34] LABS: PTT Heparin Drip 43.7 SEC (53-77.9)
[2025-03-02] MEDS: Heparin Sodium,Porcine 5,000 UNIT/ML VIAL 2300 UNIT IVPUSH ×2 (00:53→16:24)
[2025-03-02] MEDS: diazePAM 10 MG/2 ML CARTRIDGE IVPUSH ×3 (00:54→11:25)
[2025-03-02 02:59] VITALS: BP 150/85; PULSE 96; RESP 18; TEMP 36.8; O2SAT 98
[2025-03-02] MEDS: HYDROmorphone HCl 2 MG TABLET PO ×2 (05:40→14:17)
[2025-03-02] MEDS: Pantoprazole Sodium 40 MG/10 ML VIAL IVPUSH ×2 (05:40→16:16)
--- NOTE | 2025-03-02 06:18 | MHC.PIE ---
0530 p; pt refusing dialysis till pain med and iv Valium given, note; prn Valium q6 given at 0054 i; prn Dilaudid given i; dr wagner notified. ok to give early dose e; pt transferred to dialysis will cont to monitor
[2025-03-02 06:24] LABS: Hematocrit 26.1 % (37.0-47.0); Hemoglobin 8.4 g/dl (12.0-16.0); INTERNATIONAL NORM RATIO 0.9 (0.9-1.1); Mean Corpuscular HGB Conc 32.2 g/dl (31.0-35.0); Mean Corpuscular Hemoglobin 30.3 pg (27.0-33.0); Mean Corpuscular Volume 94.2 fL (80.0-98.0); NRBC Pct Auto 0.2 /100WBC (0.0-0.2); Platelet Count 111 X10*3/uL (160-400); Prothrombin Time 10.8 SEC (10.9-12.4); Red Blood Count 2.77 X10*6/uL (4.20-5.50); Red Cell Distribution Width 17.3 % (11.0-16.0); White Blood Count 12.8 X10*3/uL (4.8-10.8)
[2025-03-02 08:31] LABS: PTT Heparin Drip 77.5 SEC (53-77.9)
--- NOTE | 2025-03-02 09:00 | P.PNNPD_ITS ---
Subjective Subjective Date of Service: 03/02/25 Principal diagnosis: MRSA bacteremia This patient was seen during dialysis. Interval history: seen and examined this morning following for renal failure now on HD patient had a drop in H&H after renal biopsy (renal imaging did not show hematoma), so discharge to outpatient HD delayed for workup/monitoring. Physical Exam Vital Signs: Vital Signs: Last Vital Signs Temp 97.3 F 03/02/25 10:32 Pulse 121 H 03/02/25 10:32 Resp 16 03/02/25 10:32 BP 140/78 H 03/02/25 10:32 Pulse Ox 98 03/02/25 10:32 O2 Del Method Room Air 03/02/25 10:32 O2 Flow Rate 2 02/28/25 09:40 FiO2 33 02/18/25 07:18 Oxygen Flow Rate 3 02/21/25 08:00 BMI result Body Mass Index 19.1 Const: General: no acute distress, alert and awake Resp: Effort & Inspection: normal respiratory effort Auscultation: clear to auscultation bilaterally Cardio: Rate: regular rate Rhythm: regular rhythm Heart sounds: S1 normal heart sound present and S2 normal heart sound present GI: Palpation (GI): Soft to palpation and nontender Skin: Rashes: no rashes Extrem: General: No edema Assessment & Plan Assessment and plan (1) Acute renal failure (ARF): Status: Acute (2) Systemic lupus erythematosus: Status: Acute Plan Initial [place] likely due to tubular injury from sepsis; 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 patient now on HD TTS (will switch to MWF schedule for outpatient dialysis- she declines HD today given biopsy today as well, agrees to dialysis tomorrow. Has left permcath placed left SVC on 02/25. no erythema or swelling or drainage at site. patient to start outpatient Dialysis MWF at [facility] on [facility] in [facility]. Start date moved to Friday, 03/04, time TBD, due to H&H drop. She will need daptomycin IV 350mg Friday, Friday and 500mg Fridays post dialysis through 04/04/25 for total of 6 weeks. hospital employment evaluator/case manager should liase with [facility] unit before D/c and ensure transportation is in order for patient. 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 Recommends IV daptomycin renally dosed for 6 weeks (receiving 340mg IV and 500mg IV Fridays, since 02/21/25), ceftin 500mg PO q12h for 14 days total, 02/24-03/10/25. phosphorous 2.8, continue sevelamer (reduced dose). calcium 8.6, PTH 439, vit D levels pending. continue calcitriol 0.25mg daily H&H 8.4 & 26 this a.m., continue to monitor closely- patient has EGD scheduled for given drop in H&H on 02/28. Blood clot was found around temporary HD catheter when removed. Also had perfusion scan raising suspicion for PE. Antiphospholipid antibodies pending (will need lifelong anticoagulation if has APS). recommend daily electrolyte and renal function studies recommend regular blood pressure checks, I&O monitoring avoid nephrotoxins Continue supportive care Discussed with Dr Mcnair Time Spent With Patient Time: Total time managing care of this patient today ____ minutes. Procedures Date of Service Date of Service: 03/02/25
[2025-03-02] MEDS: Gabapentin 100 MG CAPSULE PO (09:21)
[2025-03-02 10:32] VITALS: BP 140/78; PULSE 121; RESP 16; TEMP 36.3; O2SAT 98
[2025-03-02] MEDS: predniSONE 20 MG TABLET 40 MG PO (10:51)
[2025-03-02] MEDS: 0.9 % Sodium Chloride Flush 3 ML SYRINGE IVFLUSH ×2 (10:52→21:14)
[2025-03-02] MEDS: calcitrioL 0.25 MCG CAPSULE PO (10:52)
[2025-03-02] MEDS: Sevelamer Carbonate Tablet 800 MG TABLET 1600 MG PO (10:52)
[2025-03-02] MEDS: cefuroxime axetiL 500 MG TABLET PO ×2 (10:52→19:47)
[2025-03-02] MEDS: Sodium Bicarbonate 650 MG TABLET PO ×2 (10:53→19:47)
[2025-03-02] MEDS: Acetaminophen 325 MG TABLET 975 MG PO ×2 (11:25→19:46)
--- NOTE | 2025-03-02 12:06 | PM.PSYCN ---
History of Present Illness Date of Service: 03/02/25 Chief Complaint: pain/anxiety Reason for Consult: Increase anxiety Requesting physician: Yumiko Alcaraz Discussed with referring provider: Yes (Case discuss with Consulting provider ) Sources of Information: patient interviewed and chart reviewed Additional Sources of Information: Nurse on duty and PA on duty HPI Narrative: HPI: patient 29 yo female with PMH of lupus with hx of pericardial effusion, nephritis, HTN, anemia, anxiety, ddi not feel well at home, vomitting and not eating prior to be brought in to [facility] ED on 02/11/25, was dx with Pneumonia, Acidosis, lactic, Acute on chronic anemia, Acute kidney injury superimposed on chronic kidney disease, Hypoxia, Acidosis. from ED. She then admitted on medical floor for further treatments- been 19 days. Past Psychiatric History: Report anxiety and depression hx. No prior treatment or medication trial. No OP psychiatrist but see OP therapist weekly. Medical Evaluation Reviewed: Yes See medical team note Personal & Social History: Patient reprots lives at home with , children, a sister and her mom. Review of Systems Review of Systems Patient is on HD 3 times/week for acure kidney injury [facility] Medical History (Updated 03/02/25 @ 12:16 by Marietta Dubon NP) Lupus nephritis Pericardial effusion Essential hypertension Rash Acute on chronic anemia Abnormal uterine bleeding Hypertensive urgency Anemia Depression Anxiety Fibromyalgia Lupus Surgical History Hx of hernia repair Diagnostics Vital Signs (24Hr): Vital Signs - 24 hr 03/01/25 14:13 03/01/25 14:27 03/01/25 15:20 Temperature 97.1 F 97.9 F Pulse Rate 120 H 112 H 108 H Respiratory Rate 16 18 Blood Pressure 131/73 153/89 H 136/91 H Pulse Oximetry 98 99 99 Oxygen Delivery Method Room Air Room Air 03/01/25 19:41 03/01/25 23:23 03/02/25 02:59 Temperature 97.8 F 97.8 F 98.2 F Pulse Rate 109 H 93 96 Respiratory Rate 18 18 18 Blood Pressure 163/90 H 147/81 H 150/85 H Pulse Oximetry 99 99 98 Oxygen Delivery Method Room Air Room Air Room Air 03/02/25 10:32 Temperature 97.3 F Pulse Rate 121 H Respiratory Rate 16 Blood Pressure 140/78 H Pulse Oximetry 98 Oxygen Delivery Method Room Air BMI result Body Mass Index 19.1 Labs 03/02/25 05:27 03/01/25 07:02 Labs: Laboratory Results - last 48 hr 02/28/25 02/28/25 02/28/25 14:10 16:05 17:15 WBC 16.2 H RBC 2.32 L D Hgb 7.0 L* D 7.6 L Hct 21.9 L 23.4 L MCV 94.4 MCH 30.2 MCHC 32.0 RDW 17.8 H Plt Count 95 L D MPV 9.7 Immature Gran % (Auto) Neut % (Auto) Lymph % (Auto) [place] % (Auto) Eos % (Auto) Baso % (Auto) Lymph # (Auto) [place] # (Auto) Eos # (Auto) Baso # (Auto) Abs Immat Gran (auto) Absolute Neuts (auto) Absolute Nucleated RBC 0.030 H Nucleated RBC % (auto) 0.2 Neutrophils % (Manual) Band Neutrophils % Lymphocytes % (Manual) Monocytes % (Manual) Metamyelocytes % Myelocytes % Abs Neuts (Manual) Lymphocytes # (Manual) Monocytes # (Manual) Metamyelocytes # Myelocytes # Platelet Estimate Large Platelets Plt Morphology Comment RBC Morphology Basophilic Stippling Macrocytosis [place] Cells Hold Purple Top PT INR aPTT Heparin Protocol 53.8 D Sodium Potassium Chloride Carbon Dioxide Anion Gap BUN Creatinine Estim Creat Clear Calc Estimated GFR Random Glucose Calcium Phosphorus PTH Intact Blood Type A Positive Antibody Screen NEGATIVE Crossmatch See Detail 02/28/25 03/01/25 03/01/25 20:47 07:02 09:12 WBC 18.0 H 13.8 H RBC 3.19 L D 2.93 L Hgb 10.0 L D 9.0 L Hct 29.4 L D 28.2 L MCV 92.2 96.2 MCH 31.3 30.7 MCHC 34.0 31.9 RDW 16.3 H 17.1 H Plt Count 109 L 95 L MPV 10.2 10.1 Immature Gran % (Auto) Cancelled Neut % (Auto) Cancelled Lymph % (Auto) Cancelled [place] % (Auto) Cancelled Eos % (Auto) Cancelled Baso % (Auto) Cancelled Lymph # (Auto) Cancelled [place] # (Auto) Cancelled Eos # (Auto) Cancelled Baso # (Auto) Cancelled Abs Immat Gran (auto) Cancelled Absolute Neuts (auto) Cancelled Absolute Nucleated RBC 0.040 H 0.050 H Nucleated RBC % (auto) 0.2 0.4 H Neutrophils % (Manual) 79 H Band Neutrophils % 4 Lymphocytes % (Manual) 5 L Monocytes % (Manual) 1 L Metamyelocytes % 9 Myelocytes % 2 Abs Neuts (Manual) 14.9 H Lymphocytes # (Manual) 0.9 L Monocytes # (Manual) 0.2 Metamyelocytes # 1.6 Myelocytes # 0.4 Platelet Estimate SLIGHTLY DECREASED Large Platelets PRESENT Plt Morphology Comment NOTED RBC Morphology NOTED Basophilic Stippling 1+ (0-2) Macrocytosis 1+ (5-14) Bambi Cells 1+ (0-2) Hold Purple Top SEE NOTE PT INR aPTT Heparin Protocol Sodium 138 Potassium 3.4 D Chloride 101 Carbon Dioxide 28 Anion Gap 12 BUN 33 H Creatinine 2.40 H Estim Creat Clear Calc 29.8 Estimated GFR 24 Random Glucose 81 Calcium 8.4 Phosphorus 2.8 PTH Intact 213.1 H Blood Type Antibody Screen Crossmatch 03/01/25 03/01/25 03/02/25 12:07 17:59 00:16 WBC 16.0 H RBC 2.70 L Hgb 8.7 L 8.5 L Hct 26.2 L 25.2 L MCV 93.3 MCH 31.5 MCHC 33.7 RDW 17.3 H Plt Count 118 L MPV 11.2 Immature Gran % (Auto) Neut % (Auto) Lymph % (Auto) [place] % (Auto) Eos % (Auto) Baso % (Auto) Lymph # (Auto) [place] # (Auto) Eos # (Auto) Baso # (Auto) Abs Immat Gran (auto) Absolute Neuts (auto) Absolute Nucleated RBC 0.020 H Nucleated RBC % (auto) 0.1 Neutrophils % (Manual) Band Neutrophils % Lymphocytes % (Manual) Monocytes % (Manual) Metamyelocytes % Myelocytes % Abs Neuts (Manual) Lymphocytes # (Manual) Monocytes # (Manual) Metamyelocytes # Myelocytes # Platelet Estimate Large Platelets Plt Morphology Comment RBC Morphology Basophilic Stippling Macrocytosis Bambi Cells Hold Purple Top PT 11.3 INR 1.0 aPTT Heparin Protocol 31.6 L D 43.7 L D Sodium Potassium Chloride Carbon Dioxide Anion Gap BUN Creatinine Estim Creat Clear Calc Estimated GFR Random Glucose Calcium Phosphorus PTH Intact Blood Type Antibody Screen Crossmatch 03/02/25 03/02/25 05:27 08:13 WBC 12.8 H RBC 2.77 L Hgb 8.4 L Hct 26.1 L MCV 94.2 MCH 30.3 MCHC 32.2 RDW 17.3 H Plt Count 111 L MPV 10.0 Immature Gran % (Auto) Neut % (Auto) Lymph % (Auto) [place] % (Auto) Eos % (Auto) Baso % (Auto) Lymph # (Auto) [place] # (Auto) Eos # (Auto) Baso # (Auto) Abs Immat Gran (auto) Absolute Neuts (auto) Absolute Nucleated RBC 0.030 H Nucleated RBC % (auto) 0.2 Neutrophils % (Manual) Band Neutrophils % Lymphocytes % (Manual) Monocytes % (Manual) Metamyelocytes % Myelocytes % Abs Neuts (Manual) Lymphocytes # (Manual) Monocytes # (Manual) Metamyelocytes # Myelocytes # Platelet Estimate Large Platelets Plt Morphology Comment RBC Morphology Basophilic Stippling Macrocytosis Bambi Cells Hold Purple Top SEE NOTE PT 10.8 L INR 0.9 aPTT Heparin Protocol 77.5 D Sodium Potassium Chloride Carbon Dioxide Anion Gap BUN Creatinine Estim Creat Clear Calc Estimated GFR Random Glucose Calcium Phosphorus PTH Intact Blood Type Antibody Screen Crossmatch Imaging Radiology Impressions: ITS Impressions Chest X-Ray 02/18/25 14:48 IMPRESSION: 1. Right central venous catheter in place, tip at the junction of the brachiocephalic veins within the superior SVC. 2. Extensive consolidative opacity throughout the right upper lung, with lesser consolidation right lower lung. Findings are worsening. Electronically signed by: Dutch Gutierrez MD 02/18/2025 04:02 PM EDT Venous Duplex 02/19/25 11:17 IMPRESSION: No evidence of deep venous thrombosis involving the bilateral lower extremities. Electronically signed by: Ghulam Sanchez MD 02/21/2025 07:08 AM EDT Insertion Tunneled Catheter 02/25/25 09:06 IMPRESSION: Left permacath was inserted under fluoroscopy and ultrasound guidance and was dictated with ultrasound report. Electronically signed by: Ghulam Sanchez MD 02/28/2025 08:32 AM EDT RP Guidance Ultrasound 02/25/25 09:23 IMPRESSION: Successful insertion of a left permacatheter on this ultrasound fluoroscopy guidance. The tip of the catheter lies in the mid SVC. On ultrasound images of the right neck there is moderate clot seen a dilated jugular vein surrounding the dialysis catheter. The results were immediately called to ELLA Ayon at 10:00 AM by [employer]. Fluoroscopy time: 0.3 minutes. Dose: 14.3 mGy/cm. Electronically signed by: Ghulam Sanchez MD 02/28/2025 07:56 AM EDT RP Renal Biopsy CT 02/28/25 08:09 IMPRESSION: Successful CT fluoroscopy guided right renal lower pole biopsy performed. DLP: 186 mGy/cm. Electronically signed by: Ghulam Sanchez MD 02/28/2025 11:40 AM EDT RP Mental Status Exam Mental Status Exam Narrative: Appearance/Clothing: Dress in hospital attire clean, in NAD, and appears stated age Eye Contact: mostly closed. Posture: position in bed Body Movement: No psychomotor agitation or retardation noted. No tremors or tics. Restless. Behavior: anxious, restless but Cooperative Speech: WNL, Clear Affect: constriced Thought content: Denies HI/SI/AVH or thoughts of self-harm; -delusions; -paranoia; -perceptual disturbances Thought Process: Linear, goal oriented Orientation: Oriented x 4 Memory: Intact Insight: Fair Judgment: Fair Medications Medications Current Medications Acetaminophen (Acetaminophen 325 Mg Tablet) 975 mg PO Q8H GERARDO Last Admin: 03/02/25 11:25 Dose: 975 mg Calcitriol (Calcitriol 0.25 Mcg Capsule) 0.25 mcg PO DAILY GERARDO Last Admin: 03/02/25 10:52 Dose: 0.25 mcg Cefuroxime Axetil (Cefuroxime Axetil 500 Mg Tablet) 500 mg PO Q12H GERARDO Stop: 03/10/25 08:59 Last Admin: 03/02/25 10:52 Dose: 500 mg Diphenhydramine HCl (Diphenhydramine Hcl 50 Mg/Ml Vial) 25 mg IVPUSH Q6H PRN PRN Reason: allergy Last Admin: 02/21/25 09:15 Dose: 25 mg Gabapentin (Gabapentin 100 Mg Capsule) 100 mg PO TID [facility] Last Admin: 03/02/25 09:21 Dose: 100 mg Heparin Sodium (Porcine) (Heparin Sodium,Porcine 5,000 Unit/Ml Vial) 5,000 unit INTRACATH ONCE ONE Stop: 03/02/25 12:35 Heparin Sodium (Porcine) (Heparin Sodium,Porcine 5,000 Unit/Ml Vial) 2,300 unit 40 unit/kg (2300 unit) IVPUSH PROTOCOL BOLUS PRN; Protocol PRN Reason: 40 unit/kg - Heparin Protocol Last Admin: 03/02/25 00:53 Dose: 2,300 unit Heparin Sodium (Porcine) (Heparin Sodium,Porcine 5,000 Unit/Ml Vial) 4,600 unit 80 unit/kg (4600 unit) IVPUSH PROTOCOL BOLUS PRN; Protocol PRN Reason: 80 unit/kg - Heparin Protocol Hydromorphone HCl (Hydromorphone Hcl 2 Mg Tablet) 2 mg PO Q8H PRN PRN Reason: Pain, Moderate(Pain Scale 4-6) Last Admin: 03/02/25 05:40 Dose: 2 mg Daptomycin 340 mg/ Sodium (Chloride) 56.8 mls @ 100 mls/hr IV MoWe@1999 [facility] Last Infusion: 02/28/25 22:00 Dose: Infused Daptomycin 500 mg/ Sodium (Chloride) 60 mls @ 97.959 mls/hr IV Fr@1999 [facility] Last Infusion: 02/25/25 23:56 Dose: Infused Heparin Sodium/Sodium Chloride (Heparin Sodium,Porcine/1/2ns) 25,000 unit in 250 mls @ 0 mls/hr IVCONT .Q0M [facility]; Protocol Last Titration: 03/02/25 09:13 Dose: 14 units/kg/hr, 7.98 mls/hr Loperamide HCl (Loperamide Hcl 2 Mg Capsule) 4 mg PO Q6H PRN PRN Reason: Diarrhea Last Admin: 02/27/25 21:28 Dose: 4 mg Lorazepam (Lorazepam 0.5 Mg Tablet) 0.5 mg PO Q4H PRN PRN Reason: severe anxiety Melatonin (Melatonin 3 Mg Tablet) 6 mg PO BEDTIME PRN PRN Reason: Insomnia Last Admin: 03/01/25 20:03 Dose: 6 mg Naloxone HCl (Naloxone Hcl 0.4 Mg/Ml Vial) 0.2 mg IVPUSH Q2M PRN PRN Reason: Excessive sedation or RR < 8 Pantoprazole Sodium (Pantoprazole Sodium 40 Mg/10 Ml Vial) 40 mg IVPUSH BID@0630,1630 [facility] Last Admin: 03/02/25 05:40 Dose: 40 mg Prednisone (Prednisone 20 Mg Tablet) 40 mg PO DAILY [facility] Last Admin: 03/02/25 10:51 Dose: 40 mg Sevelamer Carbonate (Sevelamer Carbonate Tablet 800 Mg Tablet) 1,600 mg PO TIDWM [facility] Last Admin: 03/02/25 10:52 Dose: 1,600 mg Sodium Bicarbonate (Sodium Bicarbonate 650 Mg Tablet) 650 mg PO BID [facility] Last Admin: 03/02/25 10:53 Dose: 650 mg Sodium Chloride (0.9 % Sodium Chloride Flush 3 Ml Syringe) 3 ml IVFLUSH QSHIFT [facility] Last Admin: 03/02/25 10:52 Dose: 3 ml Allergies Allergies Allergy/AdvReac Type Severity Reaction Status Date / Time mycophenolate mofetil AdvReac Intermediate GI upset Verified 02/11/25 16:49 gabapentin AdvReac Unknown Hives Verified 02/11/25 16:49 Assessment & Plan Assessment & Plan (1) At risk for increased anxiety: Status: Acute Code(s): Z91.89 - Other specified personal risk factors, not elsewhere classified Plan HPI: patient 29 yo female with PMH of lupus with hx of pericardial effusion, nephritis, HTN, anemia, anxiety, ddi not feel well at home, vomitting and not eating prior to be brought in to [facility] ED on 02/11/25, was dx with Pneumonia, Acidosis, lactic, Acute on chronic anemia, Acute kidney injury superimposed on chronic kidney disease, Hypoxia, Acidosis. from ED. She then admitted on medical floor for further treatments- been 19 days. Reason for consult: Increase anxiety. Case discuss with PA on duty Yumiko and nurse on duty I see Jilarry in her room. She is in bed with medical devices attachment- IV line on. She is closing her eye but occasionally open her eyes during 1-1 assessment. Report increase anxiety d/t pain all over , Main complain is d/t Dilaudid was taken away. 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 She is hyper focus on pain. Sleep was ok . Appetite is good but I cannot taste . Denies hx of allergic to Gabpentin as listed in medical record. Report she takes a lot of Advil and Tylenol at home but they do not help . Report all over body pain 10/10 especially on legs. Anxiety 10/10, and depression a 5/10. She appears restless, especially in lower extremely. Plan: potential to have Gabapentin increase to target pian/ anxiety but contraindicated with guideline as she is currently on HD 3x/week. Per tiffany onpiyush on HD, Recommended dose 100 TID/day or 300mg daily which she is currently prescribed. We plan to wean her of from IV push medication. Therefore, I discontinue Valium as she also reports it does not help. Start on Ativan 1mg TID PRN for severe anxiety. Plan to eventually wean her of BZD and will not discharge home with BZD, WIll taper off: Ativan 1mg TID PRN x2 days. Then 1mg BID x2 days, Ativan 1mg PRN once daily x1 day then discontinue. In the meantime, medical team to manage and control pain to help decrease anxiety level. Ambulate a couple times/shift or as tolerated. Patient to FLU with OP provider regarding depression/anxiety after discharge. Total time managing care of this patient today ____ minutes. Patient educated on: medication risk/benefits Informed Consent: understands
--- NOTE | 2025-03-02 12:26 | P.PNIM_ITS ---
Subjective Subjective Date of Service: 03/02/25 Interval History: seen and examined this morning follow up for bacteremia, renal failure pt reporting pain; no specific location,generalized Constitutional Constitutional: Denies chills and Denies fever(s) Cardiovascular Cardiovascular: Denies chest pain Gastrointestinal Gastrointestinal: Denies abdominal pain and Denies vomiting Physical Exam 2 Vital Signs: Vital Signs: Last Vital Signs Temp 97.3 F 03/02/25 10:32 Pulse 121 H 03/02/25 10:32 Resp 16 03/02/25 10:32 BP 140/78 H 03/02/25 10:32 Pulse Ox 98 03/02/25 10:32 O2 Del Method Room Air 03/02/25 10:32 O2 Flow Rate 2 02/28/25 09:40 FiO2 33 02/18/25 07:18 Oxygen Flow Rate 3 02/21/25 08:00 BMI result Body Mass Index 19.1 Const: Other: permcath left side General: cooperative, no acute distress, alert and awake Nutritional Appearance: average body habitus Orientation/consciousness: patient oriented x3 Resp: Effort & Inspection: normal respiratory effort, no respiratory distress and no use of accessory muscles Cardio: Rate: regular rate GI: Inspection: No distended Palpation (GI): Soft to palpation Neuro: General: patient oriented x3, moves all extremities and CN's II-XI intact bilaterally Extrem: General: Yes no pedal edema Objective Data Active Medications Acetaminophen (Acetaminophen 325 Mg Tablet) 975 mg PO Q8H [facility] Last Admin: 03/02/25 11:25 Dose: 975 mg Documented By: BETSY Calcitriol (Calcitriol 0.25 Mcg Capsule) 0.25 mcg PO DAILY [facility] Last Admin: 03/02/25 10:52 Dose: 0.25 mcg Documented By: BETSY Cefuroxime Axetil (Cefuroxime Axetil 500 Mg Tablet) 500 mg PO Q12H [facility] Stop: 03/10/25 08:59 Last Admin: 03/02/25 10:52 Dose: 500 mg Documented By: BETSY Diphenhydramine HCl (Diphenhydramine Hcl 50 Mg/Ml Vial) 25 mg IVPUSH Q6H PRN PRN Reason: allergy Last Admin: 02/21/25 09:15 Dose: 25 mg Documented By: BELKIS Gabapentin (Gabapentin 300 Mg Capsule) 300 mg PO [facility]@1800 [facility] Heparin Sodium (Porcine) (Heparin Sodium,Porcine 5,000 Unit/Ml Vial) 5,000 unit INTRACATH ONCE ONE Stop: 03/02/25 12:35 Heparin Sodium (Porcine) (Heparin Sodium,Porcine 5,000 Unit/Ml Vial) 2,300 unit 40 unit/kg (2300 unit) IVPUSH PROTOCOL BOLUS PRN; Protocol PRN Reason: 40 unit/kg - Heparin Protocol Last Admin: 03/02/25 00:53 Dose: 2,300 unit Documented By: JESSICA Heparin Sodium (Porcine) (Heparin Sodium,Porcine 5,000 Unit/Ml Vial) 4,600 unit 80 unit/kg (4600 unit) IVPUSH PROTOCOL BOLUS PRN; Protocol PRN Reason: 80 unit/kg - Heparin Protocol Hydromorphone HCl (Hydromorphone Hcl 2 Mg Tablet) 2 mg PO Q8H PRN PRN Reason: Pain, Moderate(Pain Scale 4-6) Last Admin: 03/02/25 05:40 Dose: 2 mg Documented By: JESSICA Daptomycin 340 mg/ Sodium (Chloride) 56.8 mls @ 100 mls/hr IV MoWe@1999 [facility] Last Infusion: 02/28/25 22:00 Dose: Infused Documented By: ROHIT Daptomycin 500 mg/ Sodium (Chloride) 60 mls @ 97.959 mls/hr IV Fr@1999 [facility] Last Infusion: 02/25/25 23:56 Dose: Infused Documented By: ZORAN Heparin Sodium/Sodium Chloride (Heparin Sodium,Porcine/1/2ns) 25,000 unit in 250 mls @ 0 mls/hr IVCONT .Q0M [facility]; Protocol Last Titration: 03/02/25 09:13 Dose: 14 units/kg/hr, 7.98 mls/hr Documented By: BETSY Co-signed By: PRASANTH Loperamide HCl (Loperamide Hcl 2 Mg Capsule) 4 mg PO Q6H PRN PRN Reason: Diarrhea Last Admin: 02/27/25 21:28 Dose: 4 mg Documented By: ROHIT Lorazepam (Lorazepam 0.5 Mg Tablet) 0.5 mg PO Q4H PRN PRN Reason: severe anxiety Melatonin (Melatonin 3 Mg Tablet) 6 mg PO BEDTIME PRN PRN Reason: Insomnia Last Admin: 03/01/25 20:03 Dose: 6 mg Documented By: JESSICA Naloxone HCl (Naloxone Hcl 0.4 Mg/Ml Vial) 0.2 mg IVPUSH Q2M PRN PRN Reason: Excessive sedation or RR < 8 Pantoprazole Sodium (Pantoprazole Sodium 40 Mg/10 Ml Vial) 40 mg IVPUSH BID@0630,1630 [facility] Last Admin: 03/02/25 05:40 Dose: 40 mg Documented By: JESSICA Prednisone (Prednisone 20 Mg Tablet) 60 mg PO DAILY [facility] Sevelamer Carbonate (Sevelamer Carbonate Tablet 800 Mg Tablet) 1,600 mg PO TIDWM [facility] Last Admin: 03/02/25 10:52 Dose: 1,600 mg Documented By: BETSY Sodium Bicarbonate (Sodium Bicarbonate 650 Mg Tablet) 650 mg PO BID [facility] Last Admin: 03/02/25 10:53 Dose: 650 mg Documented By: BETSY Sodium Chloride (0.9 % Sodium Chloride Flush 3 Ml Syringe) 3 ml IVFLUSH QSHIFT [facility] Last Admin: 03/02/25 10:52 Dose: 3 ml Documented By: BETSY Labs 03/02/25 05:27 03/01/25 07:02 Labs: Laboratory Results - last 24 hr 03/01/25 03/02/25 03/02/25 17:59 00:16 05:27 MCV 93.3 94.2 MCH 31.5 30.3 MCHC 33.7 32.2 RDW 17.3 H 17.3 H Plt Count 118 L 111 L MPV 11.2 10.0 Absolute Nucleated RBC 0.020 H 0.030 H Nucleated RBC % (auto) 0.1 0.2 Hold Purple Top PT 11.3 10.8 L INR 1.0 0.9 aPTT Heparin Protocol 31.6 L D 43.7 L D 03/02/25 08:13 MCV MCH MCHC RDW Plt Count MPV Absolute Nucleated RBC Nucleated RBC % (auto) Hold Purple Top SEE NOTE PT INR aPTT Heparin Protocol 77.5 D Assessment and Plan (1) Anemia: Status: Acute (2) Infective endocarditis: Status: Acute (3) Bacteremia: Status: Acute (4) Lupus nephritis: Status: Acute Plan 29-year-old female with underlying lupus with lupus nephritis on 10 mg prednisone daily admitted on 02/11/2025 with dyspnea and hypoxia secondary to right-sided pneumonia with polymicrobial bacteremia requiring intubation and ventilatory support. Hospital course further complicated by acute renal failure requiring initiation of hemodialysis. Followed by nephrology service with concern for possible lupus nephritis flare, started on high-dose systemic glucocorticoids. Extubated on 02/15/2025. Normocytic anemia due to gi bleeding reported melanotic stools due to possible stress gastritis continue IV PPI Previously Seen by GI>no signs of overt bleeding, no indication for EGD at this time; now with drop in H/H plan for egd tomorrow; npo at midnight; stop heparin 6 hours prior to planned procedure time HH low, 2 units PRBC ordered Acute renal failure May be multifactorial due to KALEIGH from tubular injury due to sepsis as well as possible active lupus nephritis requiring initiation of HD Received high-dose [id number], transitioned to oral prednisone 60 mg 02/17 continue current dose of steroids upon discharge - further management per nephrology following results of kidney biopsy results Nephrology following continue HD TTS, calcitriol, renvela, sodium bicarb s/p permcath 02/25 renal biopsy 02/28/25 o/p dialysis in [place] Acute right jugular vein clot provoked, in location of previous IV continue heparin drip - convert to eliquis 2.5 bid upon discharge will need 3 months of AC upon discharge vascular surgery input Acute uncontrolled generalized Pain continues to be difficult to control Multimodal approach for pain reg Schedule Tylenol 975 change Gabapentin dosing to once daily on dialysis days Oxycodone not effective, changed to po dilaudid ->transition to [facility] d/w pharmacy for dosing recommendations IV dilaudid discontinued. Severe sepsis due to Polymicrobial bacteremia. Sepsis resolved Blood cultures growing E coli, Klebsiella, MRSA Seen by Cardiology, recommend treatment for infective endocarditis, repeat echo does not visualize tricuspid or pulmonic valves well s/p IV vancomycin, ceftriaxone>seen by ID rec IV dapto (6 weeks) from first negative cultures (02/20) end date 04/04 Completed 8 days of ceftriaxone will switch to 14 days po ceftin Hyponatremia>Resolved Probably dilutional >improved with dialysis Elevated blood pressures. Improving Bp stable Acute respiratory failure with hypoxia due to pneumonia Status post extubation, required HFNC, now weaned to room air Tested + for parainfluenza virus. Mycoplasma IgG + and IgM negative, nonspecific per ID, no need for azithromycin Currently on daptomycin Thrombocytopenia- Resolved Likely due to acute viral illness/sepsis DIC, HLH ruled out Hematology following >no further workup recommended platelets have normalized Sinus tachycardia- intermittent, seems to be due to pain EKG reviewed by cardiology>no further work up recommended at this time Given persistent hypoxia, and tachycardia VQ scan ordered to rule out PE> possibility of pulmonary embolism can not be excluded Discussed with pulmonology, check venous Doppler ultrasound to lower extremities>negative for DVT DVT prophylaxis with SCD boots and heparin Full code Disposition. PT recommended home with PT when medically clear Quality Stroke Does the patient have a stroke diagnosis?: No VTE Prior VTE?: No VTE Risk Level:: Medical - moderate - high VTE Device Contraindication: N/A - Device Ordered VTE Drug Contraindication: Treatment Not Indicated
--- NOTE | 2025-03-02 14:35 | MHC.CM.PN ---
per rounds pt to have an egd
[2025-03-02 15:29] VITALS: BP 132/76; PULSE 125; RESP 16; TEMP 36.2; O2SAT 98
[2025-03-02 15:41] LABS: PTT Heparin Drip 47.5 SEC (53-77.9)
[2025-03-02] MEDS: LORazepam 1 MG TABLET PO ×2 (16:15→21:54)
[2025-03-02] MEDS: Sevelamer Carbonate Tablet 800 MG TABLET PO (18:27)
[2025-03-02] MEDS: Heparin Sodium,Porcine/1/2NS 25,000 UNIT/250 ML IV.SOLN 9.12 UNIT IVCONT (19:42)
[2025-03-02] MEDS: Melatonin 3 MG TABLET 6 MG PO (19:47)
[2025-03-02] MEDS: Morphine Sulfate ER 15 MG TABLET.ER PO (19:47)
[2025-03-02 20:00] VITALS: BP 138/85; PULSE 100; RESP 18; TEMP 36.9; O2SAT 100
[2025-03-02] MEDS: DAPTOMYCIN IV (21:13)
[2025-03-02] MEDS: SODIUM CHLORIDE 0.9% IV (21:13)
[2025-03-02] MEDS: HYDROmorphone HCl 2 MG TABLET 1 MG PO (21:53)
--- NOTE | 2025-03-02 22:10 | PC.NURSE ---
pt c/o insomnia - note; pt observed asleep in bed post bed time med pass. pt demanding and crying for iv valium. note; iv valium d/c'd today, prn ativan tid ordered, last given at 1600, per pixis prn to be given at (0900, 1500, 2100), pharmacy called and verified ok to given ativan at 2100. pt cont to cry and asking for iv valium, pt re educated numerous time with pt now willing to try ativan for anxiety/sleep.... will cont to monitor
[2025-03-02 22:53] VITALS: BP 146/89; PULSE 107; RESP 20; TEMP 37; O2SAT 98
[2025-03-03] VITALS (10 sets, daily range): BP systolic 126–158; BP diastolic 76–98; PULSE 93–118; RESP 12–20; TEMP 35.9–37.2; O2SAT 93–100
[2025-03-03 01:06] LABS: PTT Heparin Drip 81.1 SEC (53-77.9)
[2025-03-03] MEDS: LORazepam 1 MG TABLET PO ×3 (02:38→20:22)
[2025-03-03] MEDS: HYDROmorphone HCl 1 MG/ML SYRINGE IVPUSH (02:39)
[2025-03-03] MEDS: Pantoprazole Sodium 40 MG/10 ML VIAL IVPUSH (05:48)
[2025-03-03] MEDS: HYDROmorphone HCl 2 MG TABLET 1 MG PO ×2 (05:48→14:43)
[2025-03-03 06:16] LABS: Anion Gap 12 (12-20); Blood Urea Nitrogen 28 mg/dL (9-16); Calcium 8.8 mg/dL (8.4-10.2); Carbon Dioxide 29 mmol/L (22-29); Chloride 99 mmol/L (96-108); Creatinine Clr Calc Pharmacy 31.9; Estimated Glomerular Filt Rate 25; Glucose Random 81 mg/dL (60-115); Phosphorus 3.7 mg/dL (2.7-4.5); Potassium 4.4 mmol/L (3.3-5.1); Sodium 136 mmol/L (135-145)
[2025-03-03 07:37] LABS: Hematocrit 24.9 % (37.0-47.0); Mean Corpuscular HGB Conc 32.1 g/dl (31.0-35.0); Mean Corpuscular Hemoglobin 30.7 pg (27.0-33.0); Mean Corpuscular Volume 95.4 fL (80.0-98.0); Mean Platelet Volume 11.6 fL (9.4-12.3); NRBC Pct Auto 0.2 /100WBC (0.0-0.2); Platelet Count 170 X10*3/uL (160-400); Red Blood Count 2.61 X10*6/uL (4.20-5.50); Red Cell Distribution Width 17.5 % (11.0-16.0); White Blood Count 15.5 X10*3/uL (4.8-10.8)
[2025-03-03] MEDS: calcitrioL 0.25 MCG CAPSULE PO (08:25)
[2025-03-03] MEDS: predniSONE 20 MG TABLET 60 MG PO (08:25)
[2025-03-03] MEDS: Morphine Sulfate ER 15 MG TABLET.ER PO (08:25)
[2025-03-03] MEDS: cefuroxime axetiL 500 MG TABLET PO ×2 (08:25→20:22)
[2025-03-03 10:46] LABS: PTT Heparin Drip 43.8 SEC (53-77.9)
[2025-03-03 11:23] LABS: PTT Heparin Drip 29.7 SEC (53-77.9)
[2025-03-03] MEDS: Acetaminophen 325 MG TABLET 975 MG PO (11:37)
[2025-03-03] MEDS: 0.9 % Sodium Chloride Flush 3 ML SYRINGE IVFLUSH ×2 (11:38→14:35)
[2025-03-03] MEDS: Lactated Ringers 1,000 ML 80 ML IVCONT (12:40)
--- NOTE | 2025-03-03 12:55 | HO.PM.IMPN ---
Subjective Subjective Date of Service: 03/03/25 Interval History: Seen and examined this morning Follow-up for pain, anemia, renal failure Plan for EGD today Patient persistently complains of pain, anxiety frequently described as 10/10. When patient has visitors or is engaged in conversation she does not complain of pain, stops moaning etc Review of Systems Review of Systems: Yes all other systems are reviewed and are negative Constitutional Constitutional: Denies chills and Denies fever(s) Cardiovascular Cardiovascular: Denies chest pain, Denies palpitations and Denies dyspnea Respiratory Respiratory: Denies cough and Denies dyspnea Endocrine Endocrine: Denies palpitations Physical Exam Vital Signs: Vital Signs: Last Vital Signs Temp 98.3 F 03/03/25 12:34 Pulse 118 H 03/03/25 12:34 Resp 16 03/03/25 12:34 BP 126/96 H 03/03/25 12:34 Pulse Ox 99 03/03/25 12:34 O2 Del Method Room Air 03/03/25 12:34 O2 Flow Rate 2 02/28/25 09:40 FiO2 33 02/18/25 07:18 Oxygen Flow Rate 3 02/21/25 08:00 BMI result Body Mass Index 19.1 Const: Other: permcath left side General: cooperative, no acute distress, alert and awake Nutritional Appearance: average body habitus Orientation/consciousness: patient oriented x3 Resp: Effort & Inspection: normal respiratory effort, no respiratory distress and no use of accessory muscles Cardio: Rate: regular rate GI: Inspection: No distended Palpation (GI): Soft to palpation Neuro: General: patient oriented x3, moves all extremities and CN's II-XI intact bilaterally Extrem: General: Yes no pedal edema Objective Data Active Medications Acetaminophen (Acetaminophen 325 Mg Tablet) 975 mg PO Q8H [facility] Last Admin: 03/03/25 11:37 Dose: 975 mg Documented By: CORINNE Calcitriol (Calcitriol 0.25 Mcg Capsule) 0.25 mcg PO DAILY [facility] Last Admin: 03/03/25 08:25 Dose: 0.25 mcg Documented By: CORINNE Cefuroxime Axetil (Cefuroxime Axetil 500 Mg Tablet) 500 mg PO Q12H [facility] Stop: 03/10/25 08:59 Last Admin: 03/03/25 08:25 Dose: 500 mg Documented By: CORINNE Gabapentin (Gabapentin 300 Mg Capsule) 300 mg PO [facility]@1800 [facility] Heparin Sodium (Porcine) (Heparin Sodium,Porcine 5,000 Unit/Ml Vial) 2,300 unit 40 unit/kg (2300 unit) IVPUSH PROTOCOL BOLUS PRN; Protocol PRN Reason: 40 unit/kg - Heparin Protocol Last Admin: 03/02/25 16:24 Dose: 2,300 unit Documented By: BETSY Heparin Sodium (Porcine) (Heparin Sodium,Porcine 5,000 Unit/Ml Vial) 4,600 unit 80 unit/kg (4600 unit) IVPUSH PROTOCOL BOLUS PRN; Protocol PRN Reason: 80 unit/kg - Heparin Protocol Hydromorphone HCl (Hydromorphone Hcl 2 Mg Tablet) 1 mg PO Q8H PRN PRN Reason: Pain, Moderate(Pain Scale 4-6) Last Admin: 03/03/25 05:48 Dose: 1 mg Documented By: JESSICA Daptomycin 340 mg/ Sodium (Chloride) 56.8 mls @ 100 mls/hr IV [facility]We@2000 [facility] Last Infusion: 03/02/25 21:59 Dose: Infused Documented By: JESSICA Daptomycin 500 mg/ Sodium (Chloride) 60 mls @ 97.959 mls/hr IV Fr@2000 [facility] Last Infusion: 02/25/25 23:56 Dose: Infused Documented By: ZORAN Heparin Sodium/Sodium Chloride (Heparin Sodium,Porcine/1/2ns) 25,000 unit in 250 mls @ 0 mls/hr IVCONT .Q0M [facility]; Protocol Last Titration: 03/03/25 07:38 Dose: 0 units/kg/hr, 0 mls/hr Documented By: ZEINAB Co-signed By: MERCEDES Loperamide HCl (Loperamide Hcl 2 Mg Capsule) 4 mg PO Q6H PRN PRN Reason: Diarrhea Last Admin: 02/27/25 21:28 Dose: 4 mg Documented By: ROHIT Lorazepam (Lorazepam 1 Mg Tablet) 1 mg PO TID PRN; Taper PRN Reason: Anxiety Stop: 03/07/25 13:03 Last Admin: 03/03/25 08:35 Dose: 1 mg Documented By: CORINNE Melatonin (Melatonin 3 Mg Tablet) 6 mg PO BEDTIME PRN PRN Reason: Insomnia Last Admin: 03/02/25 19:47 Dose: 6 mg Documented By: JESSICA Morphine Sulfate (Morphine Sulfate Er 15 Mg Tablet.Er) 15 mg PO BID [facility] Last Admin: 03/03/25 08:25 Dose: 15 mg Documented By: CORINNE Naloxone HCl (Naloxone Hcl 0.4 Mg/Ml Vial) 0.2 mg IVPUSH Q2M PRN PRN Reason: Excessive sedation or RR < 8 Pantoprazole Sodium (Pantoprazole Sodium 40 Mg/10 Ml Vial) 40 mg IVPUSH BID@0630,1630 [facility] Last Admin: 03/03/25 05:48 Dose: 40 mg Documented By: JESSICA Prednisone (Prednisone 20 Mg Tablet) 60 mg PO DAILY [facility] Last Admin: 03/03/25 08:25 Dose: 60 mg Documented By: CORINNE Sevelamer Carbonate (Sevelamer Carbonate Tablet 800 Mg Tablet) 800 mg PO TIDWM [facility] Last Admin: 03/03/25 11:28 Dose: Not Given Documented By: ZEINAB Non-Admin Reason: NPO Sodium Bicarbonate (Sodium Bicarbonate 650 Mg Tablet) 650 mg PO BID [facility] Last Admin: 03/03/25 10:53 Dose: Not Given Documented By: ZEINAB Non-Admin Reason: NPO Sodium Chloride (0.9 % Sodium Chloride Flush 3 Ml Syringe) 3 ml IVFLUSH QSHIFT [facility] Last Admin: 03/03/25 11:38 Dose: 3 ml Documented By: CORINNE Labs 03/03/25 05:21 03/03/25 05:21 Labs: Laboratory Results - last 24 hr 03/02/25 03/03/25 03/03/25 15:25 00:45 05:21 MCV 95.4 MCH 30.7 MCHC 32.1 RDW 17.5 H Plt Count 170 D MPV 11.6 Absolute Nucleated RBC 0.030 H Nucleated RBC % (auto) 0.2 Hold Purple Top SEE NOTE aPTT Heparin Protocol 47.5 L D 81.1 H D Anion Gap 12 Estim Creat Clear Calc 31.9 Estimated GFR 25 Random Glucose 81 Calcium 8.8 Phosphorus 3.7 03/03/25 03/03/25 08:07 11:07 MCV MCH MCHC RDW Plt Count MPV Absolute Nucleated RBC Nucleated RBC % (auto) Hold Purple Top aPTT Heparin Protocol 43.8 L D 29.7 L D Anion Gap Estim Creat Clear Calc Estimated GFR Random Glucose Calcium Phosphorus Assessment and Plan (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 Hospital course further complicated by acute renal failure requiring initiation of hemodialysis. Followed by nephrology service with concern for possible lupus nephritis flare, started on high-dose systemic glucocorticoids. Extubated on 02/15/2025. Normocytic anemia due to gi bleeding reported melanotic stools due to possible stress gastritis continue IV PPI Previously Seen by GI>no signs of overt bleeding, no indication for EGD at this time; now with drop in H/H plan for egd tomorrow; npo at midnight; stop heparin 6 hours prior to planned procedure time HH low, s/p 2 units PRBC Acute renal failure May be multifactorial due to [place] from tubular injury due to sepsis as well as possible active lupus nephritis requiring initiation of HD Received high-dose [id number], transitioned to oral prednisone 60 mg 02/17 continue current dose of steroids upon discharge - further management per nephrology following results of kidney biopsy results Nephrology following continue HD TTS, calcitriol, renvela, sodium bicarb s/p permcath 02/25 renal biopsy 02/28/25 o/p dialysis in [place] Acute right jugular vein clot provoked, in location of previous IV continue heparin drip - convert to eliquis 2.5 bid upon discharge will need 3 months of AC upon discharge vascular surgery input CTA planned for Friday prior to dialysis to rule out PE Acute uncontrolled generalized Pain continues to be difficult to control Multimodal approach for pain reg Schedule Tylenol 975 change Gabapentin dosing to once daily on dialysis days Oxycodone not effective, changed to po dilaudid ->transition to [facility] d/w pharmacy for dosing recommendations IV dilaudid discontinued. Severe sepsis due to Polymicrobial bacteremia. Sepsis resolved Blood cultures growing E coli, Klebsiella, MRSA Seen by Cardiology, recommend treatment for infective endocarditis, repeat echo does not visualize tricuspid or pulmonic valves well s/p IV vancomycin, ceftriaxone>seen by ID rec IV dapto (6 weeks) from first negative cultures (02/20) end date 04/04 Completed 8 days of ceftriaxone will switch to 14 days po ceftin to end 03/10 Hyponatremia>Resolved Probably dilutional >improved with dialysis Elevated blood pressures. Improving Bp stable Acute respiratory failure with hypoxia due to pneumonia Status post extubation, required HFNC, now weaned to room air Tested + for parainfluenza virus. Mycoplasma IgG + and IgM negative, nonspecific per ID, no need for azithromycin Currently on daptomycin Thrombocytopenia- Resolved Likely due to acute viral illness/sepsis DIC, HLH ruled out Hematology following >no further workup recommended platelets have normalized Sinus tachycardia- intermittent, seems to be due to pain EKG reviewed by cardiology>no further work up recommended at this time Given persistent hypoxia, and tachycardia VQ scan ordered to rule out PE> possibility of pulmonary embolism can not be excluded Discussed with pulmonology, check venous Doppler ultrasound to lower extremities>negative for DVT plan to obtain CTA friday prior to dialysis to definitively rule out PE DVT prophylaxis with SCD boots and heparin Full code Disposition. PT recommended home with PT when medically clear Quality Stroke Does the patient have a stroke diagnosis?: No VTE Prior VTE?: No VTE Risk Level:: Medical - moderate - high VTE Device Contraindication: N/A - Device Ordered VTE Drug Contraindication: Treatment Not Indicated
--- NOTE | 2025-03-03 12:58 | P.PNGI_ITS ---
Subjective Subjective Date of Service: 03/03/25 Interval History: HGB slowly drifting down says she has melena generalized body pain, no vomiting Critical Care Time (minutes): 0 Physical Exam 2 Vital Signs: Vital Signs: Last Vital Signs Temp 98.3 F 03/03/25 12:34 Pulse 118 H 03/03/25 12:34 Resp 16 03/03/25 12:34 BP 126/96 H 03/03/25 12:34 Pulse Ox 99 03/03/25 12:34 O2 Del Method Room Air 03/03/25 12:34 O2 Flow Rate 2 02/28/25 09:40 FiO2 33 02/18/25 07:18 Oxygen Flow Rate 3 02/21/25 08:00 BMI result Body Mass Index 19.1 EXAM: GENERAL: The patient is frail VITAL SIGNS:see workflow HEENT: Nonicteric sclerae, PERRLA, EOMI. Oropharynx clear. Moist mucous membranes. Conjunctivae appear well perfused. No thyroid mass. CHEST: Chest wall is nontender. HEART: Regular rate and rhythm without murmurs. LUNGS: Clear to auscultation bilaterally. ABDOMEN: Soft, positive bowel sounds, generally tender, no organomegaly.no flank tenderness SKIN: No rash, no excessive bruising, petechiae, or purpura. NEUROLOGIC: Cranial nerves II-XII intact without motor/sensory deficit. Psych: normal affect Objective Data Labs 03/03/25 05:21 03/03/25 05:21 Labs: Laboratory Results - last 24 hr 03/02/25 03/03/25 03/03/25 15:25 00:45 05:21 WBC 15.5 H RBC 2.61 L Hgb 8.0 L Hct 24.9 L MCV 95.4 MCH 30.7 MCHC 32.1 RDW 17.5 H Plt Count 170 D MPV 11.6 Absolute Nucleated RBC 0.030 H Nucleated RBC % (auto) 0.2 Hold Purple Top SEE NOTE aPTT Heparin Protocol 47.5 L D 81.1 H D Sodium 136 Potassium 4.4 D Chloride 99 Carbon Dioxide 29 Anion Gap 12 BUN 28 H Creatinine 2.30 H Estim Creat Clear Calc 31.9 Estimated GFR 25 Random Glucose 81 Calcium 8.8 Phosphorus 3.7 03/03/25 03/03/25 08:07 11:07 WBC RBC Hgb Hct MCV MCH MCHC RDW Plt Count MPV Absolute Nucleated RBC Nucleated RBC % (auto) Hold Purple Top aPTT Heparin Protocol 43.8 L D 29.7 L D Sodium Potassium Chloride Carbon Dioxide Anion Gap BUN Creatinine Estim Creat Clear Calc Estimated GFR Random Glucose Calcium Phosphorus Microbiology Microbiology Results: Microbiology 02/20/25 12:13 Blood - Arterial Blood Culture - Final No growth after 5 days. 02/20/25 12:13 Blood - Arterial Blood Culture - Final No growth after 5 days. 02/16/25 16:36 Blood - Venous Blood Culture - Final No growth after 5 days. 02/15/25 20:03 Blood - Venous Blood Culture - Final No growth after 5 days. 02/16/25 16:36 Blood - Venous Blood Culture - Final Methicillin Res Staph Aureus 02/15/25 20:03 Blood - Venous Blood Culture - Final Methicillin Res Staph Aureus 02/14/25 10:51 Blood - Venous Blood Culture - Final Methicillin Res Staph Aureus 02/14/25 10:27 Blood - Venous Blood Culture - Final Methicillin Res Staph Aureus 02/12/25 09:59 Blood - Venous Blood Culture - Final Methicillin Res Staph Aureus 02/12/25 09:48 Blood - Venous Blood Culture - Final Methicillin Res Staph Aureus 02/11/25 17:44 Blood - Venous Blood Culture - Final Escherichia coli Klebsiella oxytoca 02/11/25 17:17 Blood - Venous Blood Culture - Final Escherichia coli Klebsiella oxytoca Procedures Date of Service Date of Service: 03/03/25 Progress Note: A&P Assessment and plan (1) Anemia: Status: Acute Plan 1/ anemia, may be due to mucosal injury as she had low plts and renal failure, high dose steroids as well PLAN: /1 EGD today, heparin switched off this morning. Time Spent With Patient Time: Total time managing care of this patient today ____ minutes. Quality Stroke Does the patient have a stroke diagnosis?: No VTE Prior VTE?: No VTE Risk Level:: Medical - moderate - high VTE Device Contraindication: N/A - Device Ordered VTE Drug Contraindication: Treatment Not Indicated
--- NOTE | 2025-03-03 13:41 | W.PM.OPN ---
Operative Note Operative Note Date of Service: 03/03/25 Narrative: Procedure Description: EGD Indication: ANEMIA Anesthesia: MAC FLEXIBLE TRANSORAL UPPER GASTROINTESTINAL ENDOSCOPY UPPER ENDOSCOPY Consent: Indications for the procedure and potential complications of bleeding, perforation, reaction to medications and missed diagnosis were discussed with the patient and informed consent was obtained. Instrument: Olympus GIF H 190 J mid size upper endoscope Monitoring: Vital signs and clinical assessment, continuous EKG monitoring, Pulse oximetry, Carbon Dioxide monitoring and blood pressure monitoring were done throughout the procedure. Procedure: The patient was placed in the left lateral decubitis position and pre-procedure medications were administered and a bite block was placed. The endoscope was inserted into the mouth and advanced under direct vision to the third part of duodenum. A careful inspection was made as the upper endoscope was withdrawn including a retroflexed examination of the proximal stomach; Findings and interventions are described below. Findings: Larynx:normal Esophagus: GE junction at 37 cm, diaphragm hiatus at 40 cm, consistent with 3 cm hiatal hernia. White spots noted thru out the esophagus consistent with candidiasis. Stomach: patchy erythema with few erosions and red streaks in the antrum suggestive of GAVE . Biopsies were obtained. Grade 2 flap valve on retroflexed examination of the cardia. Close to the pyloric outlet there was a spot which continued to ooze blood. A clip was applied but it kept bleeding so APC was used and then hemospray with good effect Duodenum: Normal bulb and descending duodenum, Intervention: Biopsies as noted above, APC and clip, hemospray for control of bleeding Impression/Findings: gastritis, erosions esophgeal candidiasis GAVE PLAN: restart heparin in 4 hrs and transition to NOAC tomorrow carafate BID with BID dosing PPI but not at same times fluconazole for kirby GERD precautions
[2025-03-03] MEDS: Fluconazole 100 MG TABLET 200 MG PO (14:35)
[2025-03-03 17:19] LABS: INTERNATIONAL NORM RATIO 0.9 (0.9-1.1); Prothrombin Time 10.5 SEC (10.9-12.4)
[2025-03-03 17:21] LABS: PTT Heparin Drip 28.8 SEC (53-77.9); Partial Thromboplastin Time 28.8 SEC (26.0-36.8)
[2025-03-03] MEDS: Sevelamer Carbonate Tablet 800 MG TABLET PO (17:43)
[2025-03-03] MEDS: Omeprazole 40 MG CAPSULE.DR PO (17:43)
[2025-03-03] MEDS: Sucralfate 1 GM TABLET PO (17:43)
[2025-03-03] MEDS: Heparin Sodium,Porcine/1/2NS 25,000 UNIT/250 ML IV.SOLN 6.84 UNIT IVCONT (17:45)
[2025-03-03 18:03] LABS: Beta-2 Glycoprotein I Ab IgG <2.0 U/mL (<20.0); Beta-2 Glycoprotein I Ab IgM <2.0 U/mL (<20.0); Beta-2 Glycoprotein I Ab, IgA 2.6 U/mL (<20.0); Cardiolipin IgG Ab <2.0 GPL-U/mL (<20.0); Cardiolipin IgM Ab <2.0 MPL-U/mL (<20.0); Phosphatidylserine IgG 68 U (<=30); Phosphatidylserine PT IgM 10 U (<=30)
--- NOTE | 2025-03-03 18:20 | PC.NURSE ---
Heparin drip was on hold since 7:30am for EGD. To restart 4 hours post procedure per Dr. Montero - @ 6pm. Heparin drip restarted at original orderered rate 12u/kg/hr due to being shut off for so long. Consulted with pharmacy and provider regarding rate.
[2025-03-03] MEDS: oxyCODONE HCl Immed Release 5 MG TABLET PO (18:26)
[2025-03-03] MEDS: Acetaminophen 325 MG TABLET 650 MG PO (18:26)
[2025-03-03] MEDS: Sodium Bicarbonate 650 MG TABLET PO (20:22)
[2025-03-04] MEDS: HYDROmorphone HCl 2 MG TABLET 1 MG PO (00:20)
[2025-03-04] MEDS: traZODone HCL 25 MG HALFTAB PO (00:20)
--- NOTE | 2025-03-04 00:28 | PC.NURSE ---
Addendum entered by Alexia Love RN 03/04/25 02:20: 0208 pt continues to complain of 10/10 pain.pt crying. notified. dilaudid 0.5mg IV x1 ordered. Original Note: pt c/o 10/10 generalized pain wanted something stronger than oxycodone and po dilaudid not due until 239. notified and said it was ok to give her Dilaudid 1mg po now.
[2025-03-04] MEDS: Heparin Sodium,Porcine 5,000 UNIT/ML VIAL 2300 UNIT IVPUSH (01:26)
[2025-03-04] MEDS: HYDROmorphone HCl 0.5 MG/0.5 ML SYRINGE IVPUSH (02:08)
[2025-03-04] MEDS: Acetaminophen 325 MG TABLET 650 MG PO (06:14)
[2025-03-04] MEDS: Omeprazole 40 MG CAPSULE.DR PO ×2 (06:14→17:48)
[2025-03-04] MEDS: oxyCODONE HCl Immed Release 5 MG TABLET PO ×2 (06:14→09:10)
[2025-03-04 07:46] VITALS: BP 157/98; PULSE 118; RESP 20; TEMP 36.5; O2SAT 96
[2025-03-04] MEDS: LORazepam 1 MG TABLET PO (08:15)
[2025-03-04] MEDS: Sevelamer Carbonate Tablet 800 MG TABLET PO ×3 (08:15→17:49)
[2025-03-04] MEDS: calcitrioL 0.25 MCG CAPSULE PO (08:15)
[2025-03-04] MEDS: predniSONE 20 MG TABLET 60 MG PO (08:15)
[2025-03-04] MEDS: Sodium Bicarbonate 650 MG TABLET PO ×2 (08:16→20:16)
[2025-03-04] MEDS: cefuroxime axetiL 500 MG TABLET PO ×2 (08:16→20:16)
[2025-03-04] MEDS: Sucralfate 1 GM TABLET PO ×2 (08:16→17:49)
--- NOTE | 2025-03-04 08:28 | HO.POSTANES ---
Post Anesthesia Evaluation Post Anesthesia Evaluation Date of Service: 03/04/25 Vital Signs: Vital Signs Temp Pulse Resp BP Pulse Ox O2 Del Method 03/04/25 07:46 97.7 F 118 H 20 157/98 H 96 Room Air 03/03/25 23:26 96.9 F 101 H 16 147/89 H 100 Room Air Anesthesia: Monitored Mental Status: Awake Pain Control: Satisfactory Nausea/Vomiting: None Hydration: Adequate Anesthesia-Related Issues: No Anes. Related Issues
[2025-03-04 09:49] LABS: Hematocrit 24.6 % (37.0-47.0); Hemoglobin 8.1 g/dl (12.0-16.0); Mean Corpuscular HGB Conc 32.9 g/dl (31.0-35.0); Mean Corpuscular Hemoglobin 31.3 pg (27.0-33.0); Mean Platelet Volume 10.4 fL (9.4-12.3); NRBC Pct Auto 0.2 /100WBC (0.0-0.2); Platelet Count 203 X10*3/uL (160-400); Red Blood Count 2.59 X10*6/uL (4.20-5.50); Red Cell Distribution Width 17.5 % (11.0-16.0)
[2025-03-04 09:59] LABS: PTT Heparin Drip 54.9 SEC (53-77.9)
[2025-03-04 10:09] LABS: Anion Gap 13 (12-20); Blood Urea Nitrogen 47 mg/dL (9-16); Calcium 8.3 mg/dL (8.4-10.2); Carbon Dioxide 25 mmol/L (22-29); Chloride 102 mmol/L (96-108); Creatinine Clr Calc Pharmacy 27.3; Estimated Glomerular Filt Rate 21; Glucose Random 81 mg/dL (60-115); Potassium 3.7 mmol/L (3.3-5.1); Sodium 136 mmol/L (135-145)
[2025-03-04] MEDS: Apixaban 2.5 MG TABLET PO ×2 (10:43→20:16)
[2025-03-04] MEDS: iohexoL 350 MG/ML 100 ML INFUS..BTL IV (10:55)
[2025-03-04 12:00] VITALS: BP 136/93; PULSE 108; RESP 18; TEMP 36.8; O2SAT 98
--- NOTE | 2025-03-04 12:35 | HO.PM.IMPN ---
Subjective Subjective Date of Service: 03/04/25 Interval History: seen and examined this morning follow up for respiratory failure, renal failure no sob Review of Systems Review of Systems: Yes all other systems are reviewed and are negative Constitutional Constitutional: Denies chills and Denies fever(s) Cardiovascular Cardiovascular: Denies chest pain, Denies palpitations, Denies dyspnea and Denies dyspnea on exertion Respiratory Respiratory: Denies dyspnea and Denies dyspnea on exertion Gastrointestinal Gastrointestinal: Denies abdominal pain and Denies vomiting Endocrine Endocrine: Denies palpitations Physical Exam Vital Signs: Vital Signs: Last Vital Signs Temp 97.7 F 03/04/25 07:46 Pulse 118 H 03/04/25 07:46 Resp 20 03/04/25 07:46 BP 157/98 H 03/04/25 07:46 Pulse Ox 96 03/04/25 07:46 O2 Del Method Room Air 03/04/25 07:46 O2 Flow Rate 2 02/28/25 09:40 FiO2 33 02/18/25 07:18 Oxygen Flow Rate 3 02/21/25 08:00 BMI result Body Mass Index 19.1 Const: Other: permcath left side General: no acute distress, alert and awake Nutritional Appearance: average body habitus Orientation/consciousness: patient oriented x3 Resp: Effort & Inspection: normal respiratory effort, no respiratory distress and no use of accessory muscles Cardio: Rate: regular rate GI: Inspection: No distended Palpation (GI): Soft to palpation Neuro: General: patient oriented x3, moves all extremities and CN's II-XI intact bilaterally Extrem: General: Yes no pedal edema Objective Data Active Medications Acetaminophen (Acetaminophen 325 Mg Tablet) 650 mg PO Q6H PRN PRN Reason: Pain, Mild 1-3,fever,headache Last Admin: 03/04/25 06:14 Dose: 650 mg Documented By: ODRIVER Apixaban (Apixaban 2.5 Mg Tablet) 2.5 mg PO BID [facility] Last Admin: 03/04/25 10:43 Dose: 2.5 mg Documented By: NGA Calcitriol (Calcitriol 0.25 Mcg Capsule) 0.25 mcg PO DAILY [facility] Last Admin: 03/04/25 08:15 Dose: 0.25 mcg Documented By: NGA Cefuroxime Axetil (Cefuroxime Axetil 500 Mg Tablet) 500 mg PO Q12H [facility] Stop: 03/10/25 08:59 Last Admin: 03/04/25 08:16 Dose: 500 mg Documented By: NGA Fluconazole (Fluconazole 50 Mg Tablet) 50 mg PO DAILY [facility] Last Admin: 03/04/25 08:16 Dose: 50 mg Documented By: NGA Gabapentin (Gabapentin 300 Mg Capsule) 300 mg PO MoWeFr@1800 [facility] Heparin Sodium (Porcine) (Heparin Sodium,Porcine 5,000 Unit/Ml Vial) 5,000 unit INTRACATH MOWEFR@1645 [facility] Daptomycin 340 mg/ Sodium (Chloride) 56.8 mls @ 100 mls/hr IV MoWe@1999 [facility] Last Infusion: 03/02/25 21:59 Dose: Infused Documented By: JESSICA Daptomycin 500 mg/ Sodium (Chloride) 60 mls @ 97.959 mls/hr IV Fr@1999 [facility] Last Infusion: 02/25/25 23:56 Dose: Infused Documented By: ZORAN Loperamide HCl (Loperamide Hcl 2 Mg Capsule) 4 mg PO Q6H PRN PRN Reason: Diarrhea Last Admin: 02/27/25 21:28 Dose: 4 mg Documented By: ROHIT Lorazepam (Lorazepam 1 Mg Tablet) 1 mg PO BID PRN; Taper PRN Reason: Anxiety Stop: 03/05/25 13:03 Last Admin: 03/04/25 08:15 Dose: 1 mg Documented By: NGA Melatonin (Melatonin 3 Mg Tablet) 6 mg PO BEDTIME PRN PRN Reason: Insomnia Last Admin: 03/02/25 19:47 Dose: 6 mg Documented By: JESSICA Naloxone HCl (Naloxone Hcl 0.4 Mg/Ml Vial) 0.2 mg IVPUSH Q2M PRN PRN Reason: Excessive sedation or RR < 8 Omeprazole (Omeprazole 40 Mg Capsule.) 40 mg PO BID@0630,1630 [facility] Last Admin: 03/04/25 06:14 Dose: 40 mg Documented By: ODRISNona Oxycodone HCl (Oxycodone Hcl Immed Release 5 Mg Tablet) 10 mg PO Q6H PRN PRN Reason: Pain, Moderate(Pain Scale 4-6) Prednisone (Prednisone 20 Mg Tablet) 60 mg PO DAILY [facility] Last Admin: 03/04/25 08:15 Dose: 60 mg Documented By: NGA Sevelamer Carbonate (Sevelamer Carbonate Tablet 800 Mg Tablet) 800 mg PO TIDWM [facility] Last Admin: 03/04/25 11:56 Dose: 800 mg Documented By: NGA Sodium Bicarbonate (Sodium Bicarbonate 650 Mg Tablet) 650 mg PO BID [facility] Last Admin: 03/04/25 08:16 Dose: 650 mg Documented By: NGA Sodium Chloride (0.9 % Sodium Chloride Flush 3 Ml Syringe) 3 ml IVFLUSH QSHIFT [facility] Last Admin: 03/04/25 08:20 Dose: Not Given Documented By: NGA Non-Admin Reason: IV Running Sucralfate (Sucralfate 1 Gm Tablet) 1 gm PO BIDAC [facility] Last Admin: 03/04/25 08:16 Dose: 1 gm Documented By: NGA Trazodone HCl (Trazodone Hcl 25 Mg Halftab) 25 mg PO BEDTIME PRN PRN Reason: Sleep Last Admin: 03/04/25 00:20 Dose: 25 mg Documented By: LULRISNona Labs 03/04/25 08:54 03/04/25 08:54 Labs: Laboratory Results - last 24 hr 02/26/25 03/03/25 03/04/25 06:19 16:59 00:18 MCV MCH MCHC RDW Plt Count MPV Absolute Nucleated RBC Nucleated RBC % (auto) PT 10.5 L INR 0.9 APTT 28.8 aPTT Heparin Protocol 28.8 L 40.0 L D Anion Gap Estim Creat Clear Calc Estimated GFR Random Glucose Calcium Beta-2-GPI IgG Ab <2.0 Beta-2-GPI IgA Ab 2.6 Beta-2-GPI IgM Ab <2.0 Phosphatidylserine IgG 68 H Phosphatidylserine IgM 10 Phospholipid Ab Comment see note Anti-Cardiolipin IgG Ab <2.0 Anti-Cardiolipin IgA Ab 2.0 Anti-Cardiolipin IgM Ab <2.0 03/04/25 08:54 MCV 95.0 MCH 31.3 MCHC 32.9 RDW 17.5 H Plt Count 203 MPV 10.4 Absolute Nucleated RBC 0.040 H Nucleated RBC % (auto) 0.2 PT INR APTT aPTT Heparin Protocol 54.9 D Anion Gap 13 Estim Creat Clear Calc 27.3 Estimated GFR 21 Random Glucose 81 Calcium 8.3 L Beta-2-GPI IgG Ab Beta-2-GPI IgA Ab Beta-2-GPI IgM Ab Phosphatidylserine IgG Phosphatidylserine IgM Phospholipid Ab Comment Anti-Cardiolipin IgG Ab Anti-Cardiolipin IgA Ab Anti-Cardiolipin IgM Ab Assessment and Plan (1) Cavitary pneumonia: Status: Acute Plan This is a 29-year-old female with underlying lupus with lupus nephritis on 10 mg prednisone daily admitted on 02/11/2025 with dyspnea and hypoxia secondary to right-sided pneumonia with polymicrobial bacteremia requiring intubation and ventilatory support. Hospital course further complicated by acute renal failure requiring initiation of hemodialysis. Followed by nephrology service with concern for possible lupus nephritis flare, started on high-dose systemic glucocorticoids. Extubated on 02/15/2025. Cavitary pneumonia has been treated for pneumonia repeat imaging now with cavitary pneumonia pulm consult pending Normocytic anemia due to gi bleeding Previously Seen by GI>no signs of overt bleeding, no indication for EGD at this time now with drop in H/H; s/p EGD 03/03 showing erosive gastritis, esophageal candidiasis, gave. plan for Carafate b.i.d. x2 weeks, high dose PPI upon discharge, fluconazole (renal dosing) and outpatient follow up with GI s/p 2 units PRBC H/H stable Acute renal failure May be multifactorial due to K[place] from tubular injury due to sepsis as well as possible active lupus nephritis requiring initiation of HD Received high-dose [id number], transitioned to oral prednisone 60 mg 02/17 continue current dose of steroids upon discharge - further management per nephrology following results of kidney biopsy results Nephrology following continue HD TTS, calcitriol, renvela, sodium bicarb s/p permcath 02/25 renal biopsy 02/28/25 - follow pathology o/p dialysis in [place] following discharge Acute right jugular vein clot provoked, in location of previous IV will need 3 months of AC upon discharge vascular surgery input CTA negative for PE ok to transition back to Eliquis Acute uncontrolled generalized Pain continues to be difficult to control Multimodal approach for pain reg change Gabapentin dosing to once daily on dialysis days IV dilaudid discontinued multiple med trial., pt prefers oxycodone, will uptitrate to 10 mg Severe sepsis due to Polymicrobial bacteremia. Sepsis resolved Blood cultures growing E coli, Klebsiella, MRSA Seen by Cardiology, recommend treatment for infective endocarditis, repeat echo does not visualize tricuspid or pulmonic valves well s/p IV vancomycin, ceftriaxone>seen by ID rec IV dapto (6 weeks) from first negative cultures (02/20) end date 04/04 Completed 8 days of ceftriaxone will switch to 14 days po ceftin to end 03/10 Hyponatremia>Resolved Probably dilutional >improved with dialysis Elevated blood pressures. Improving Bp stable Acute respiratory failure with hypoxia due to pneumonia Status post extubation, required HFNC, now weaned to room air Tested + for parainfluenza virus. Mycoplasma IgG + and IgM negative, nonspecific per ID, no need for azithromycin Currently on daptomycin Thrombocytopenia- Resolved Likely due to acute viral illness/sepsis DIC, HLH ruled out Hematology following >no further workup recommended platelets have normalized Sinus tachycardia- intermittent, seems to be due to pain EKG reviewed by cardiology>no further work up recommended at this time Given persistent hypoxia, and tachycardia VQ scan ordered to rule out PE> possibility of pulmonary embolism can not be excluded Discussed with pulmonology, check venous Doppler ultrasound to lower extremities>negative for DVT CTA negative for PE DVT prophylaxis with SCD boots and heparin Full code Disposition. PT recommended home with PT when medically clear Quality Stroke Does the patient have a stroke diagnosis?: No VTE Prior VTE?: No VTE Risk Level:: Medical - moderate - high VTE Device Contraindication: N/A - Device Ordered VTE Drug Contraindication: Treatment Not Indicated
[2025-03-04] MEDS: oxyCODONE HCl Immed Release 5 MG TABLET 10 MG PO ×2 (14:18→22:36)
--- NOTE | 2025-03-04 14:50 | PM.HEMONCCN ---
Subjective - Subjective Chief complaint: Body aches Patient: known to practice within the last 3 years Consult date: 03/04/25 Primary Care Provider: Vic Pompa, DO Media Librarian Utilized?: No - [place] Speaking HPI - Consult Narrative Reason for consult: Deep vein thrombosis Narrative: Trey Canales is a 29 year old female with past medical history significant for SLE, lupus nephritis, hypertension, anemia who presented to [facility] on 02/11/2025 with complaints of dyspnea, cough, fever, poor oral intake, nausea, vomiting and diarrhea. She was admitted to ICU for severe sepsis from right lobe pneumonia. Patient was also found to be in acute renal failure with a serum creatinine of 11.9. She was intubated briefly for acute respiratory failure on extubated on 02/15/2025. She was started on hemodialysis for acute renal failure and started on high-dose systemic glucocorticoids for possible lupus nephritis flare. She was found to have positive blood cultures for E coli, Klebsiella and MRSA. She was started on broad-spectrum antibiotics. She has developed gradually worsening anemia and thrombocytopenia. However, her hematocrit and platelets are rebounding and she is clearly improving. Patient had her right IJ temporary dialysis catheter removed, she went for PermCath placement but noted to have DVT in the right IJ. She has been on prophylactic heparin for DVT prophylaxis. Recent lower extremity Dopplers was negative for DVT. CT angiogram negative for PE. She has been on Eliquis. Hematology consultation was called because of antibody testing and question of lupus anticoagulant. Patient does not give any prior history of thromboembolism. Review of Systems - Constitutional Reports fatigue, Reports malaise, Reports weakness - Cardiovascular Reports no additional cardiovascular complaints - Respiratory Reports no additional respiratory complaints - Neurologic Reports no additional neurologic complaints, Reports as per HPI, Reports hearing normal, Denies dizziness, Denies headache(s), Denies memory loss, Denies numbness, Denies seizure-like activity, Denies sensory deficit, Denies weakness [facility] Medical History: Medical History (Last Updated 02/28/25 @ 17:57 by Leland Dunn MD) Abnormal uterine bleeding Acute on chronic anemia Anemia Anxiety Depression Essential hypertension Fibromyalgia Hypertensive urgency Lupus Lupus nephritis Pericardial effusion Rash Family History: Family History (Last Reviewed 02/18/25 @ 12:30 by Martha Shipman MD) Mother Hypertension Type 2 diabetes mellitus Lupus Arthritis Maternal Grandmother Hypertension Type 2 diabetes mellitus Arthritis Family history: reviewed and not pertinent Surgical History: Surgical History (Last Reviewed 03/02/25 @ 12:12 by Marietta Dubon NP) Hx of hernia repair Social History: Social History (Last Reviewed 02/18/25 @ 12:30 by Martha Shipman MD) Living Situation History: Household Members: Spouse Household Members: Children Housing: Apartment Do you presently have visiting nurse or other home services: No Tobacco History: Patient Tobacco Use Status: Current everyday Tobacco Tobacco use type: Cigarette Cigarette Packs Per Day: 0.5 Years Smoked: 7 Second Hand Smoke Exposure: No Substance Use History: Substance Use Type: Marijuana Advance Directives: Advance Directives Date on File: 04/03/22 Occupation Assessmet: service: No Current occupational status: disabled Home Medications and Allergies Current Medications: Current Medications Acetaminophen (Acetaminophen 325 Mg Tablet) 650 mg PO Q6H PRN PRN Reason: Pain, Mild 1-3,fever,headache Last Admin: 03/04/25 06:14 Dose: 650 mg Apixaban (Apixaban 2.5 Mg Tablet) 2.5 mg PO BID [facility] Last Admin: 03/04/25 10:43 Dose: 2.5 mg Calcitriol (Calcitriol 0.25 Mcg Capsule) 0.25 mcg PO DAILY [facility] Last Admin: 03/04/25 08:15 Dose: 0.25 mcg Cefuroxime Axetil (Cefuroxime Axetil 500 Mg Tablet) 500 mg PO Q12H [facility] Stop: 03/10/25 08:59 Last Admin: 03/04/25 08:16 Dose: 500 mg Fluconazole (Fluconazole 50 Mg Tablet) 50 mg PO DAILY [facility] Last Admin: 03/04/25 08:16 Dose: 50 mg Gabapentin (Gabapentin 300 Mg Capsule) 300 mg PO MoWeFr@1800 [facility] Heparin Sodium (Porcine) (Heparin Sodium,Porcine 5,000 Unit/Ml Vial) 5,000 unit INTRACATH MOWEFR@1645 [facility] Daptomycin 340 mg/ Sodium (Chloride) 56.8 mls @ 100 mls/hr IV MoWe@1999 [facility] Last Infusion: 03/02/25 21:59 Dose: Infused Daptomycin 500 mg/ Sodium (Chloride) 60 mls @ 97.959 mls/hr IV Fr@1999 [facility] Last Infusion: 02/25/25 23:56 Dose: Infused Loperamide HCl (Loperamide Hcl 2 Mg Capsule) 4 mg PO Q6H PRN PRN Reason: Diarrhea Last Admin: 02/27/25 21:28 Dose: 4 mg Lorazepam (Lorazepam 1 Mg Tablet) 1 mg PO QD PRN; Taper PRN Reason: Anxiety Stop: 03/05/25 13:03 Last Admin: 03/04/25 08:15 Dose: 1 mg Melatonin (Melatonin 3 Mg Tablet) 6 mg PO BEDTIME PRN PRN Reason: Insomnia Last Admin: 03/02/25 19:47 Dose: 6 mg Naloxone HCl (Naloxone Hcl 0.4 Mg/Ml Vial) 0.2 mg IVPUSH Q2M PRN PRN Reason: Excessive sedation or RR < 8 Omeprazole (Omeprazole 40 Mg Capsule.Dr) 40 mg PO BID@0630,1630 [facility] Last Admin: 03/04/25 06:14 Dose: 40 mg Oxycodone HCl (Oxycodone Hcl Immed Release 5 Mg Tablet) 10 mg PO Q6H PRN PRN Reason: Pain, Moderate(Pain Scale 4-6) Last Admin: 03/04/25 14:18 Dose: 10 mg Prednisone (Prednisone 20 Mg Tablet) 60 mg PO DAILY [facility] Last Admin: 03/04/25 08:15 Dose: 60 mg Sevelamer Carbonate (Sevelamer Carbonate Tablet 800 Mg Tablet) 800 mg PO TIDWM [facility] Last Admin: 03/04/25 11:56 Dose: 800 mg Sodium Bicarbonate (Sodium Bicarbonate 650 Mg Tablet) 650 mg PO BID [facility] Last Admin: 03/04/25 08:16 Dose: 650 mg Sodium Chloride (0.9 % Sodium Chloride Flush 3 Ml Syringe) 3 ml IVFLUSH QSHIFT [facility] Last Admin: 03/04/25 08:20 Dose: Not Given Sucralfate (Sucralfate 1 Gm Tablet) 1 gm PO BIDAC [facility] Last Admin: 03/04/25 08:16 Dose: 1 gm Trazodone HCl (Trazodone Hcl 25 Mg Halftab) 25 mg PO BEDTIME PRN PRN Reason: Sleep Last Admin: 03/04/25 00:20 Dose: 25 mg Allergies Allergy/AdvReac Type Severity Reaction Status Date / Time mycophenolate mofetil AdvReac Intermediate GI upset Verified 02/11/25 16:49 gabapentin AdvReac Unknown Hives Verified 02/11/25 16:49 Physical Exam Vital signs: Vital Signs Temp 98.2 F 03/04/25 12:00 Pulse 108 H 03/04/25 12:00 Resp 18 03/04/25 12:00 BP 136/93 H 03/04/25 12:00 Pulse Ox 98 03/04/25 12:00 O2 Del Method Room Air 03/04/25 12:00 O2 Flow Rate 2 02/28/25 09:40 FiO2 33 02/18/25 07:18 Intake & Output 03/03/25 03/04/25 03/04/25 18:59 06:59 18:59 Intake Total 971.488 / 1444.612 473.124 / 1444.612 72.884 / 72.884 Balance 971.488 / 1444.612 473.124 / 1444.612 72.884 / 72.884 Intake: Intake, Oral Amount 250 / 670 420 / 670 Intake, Other Amount 550 / 550 Intake, IV Amount 171.488 / 224.612 53.124 / 224.612 72.884 / 72.884 Heparin Sodium,Porcine/1/2NS 25 44.821 / 97.945 53.124 / 97.945 72.884 / 72.884 ,000 unit In 250 ml @ Per Protocol IVCONT .Q0M [facility] Rx#: [id number] Lactated Ringers 1,000 ml @ 80 126.667 / 126.667 mls/hr IVCONT .[id number] [facility] Rx#: [id number] Other: Number of Unmeasured Voids 0 Number of Bowel Movements 0 Weight 57 kg - Constitutional Present: no acute distress, chronically ill appearing - Routine HEENT Exam Head: Present: normal inspection Eye: Present: EOMI, conjunctivae pale - Routine Neck Exam Present: supple - Routine Respiratory Exam Present: CTAB - Routine Cardiovascular Exam Cardiovascular: Present: S1, S2 - Routine Extremities Exam Present: pulses intact Hem/Onc Consult Result - Labs CBC & Chem 7: 03/04/25 08:54 03/04/25 08:54 Labs: Short CBC 03/04/25 Range/Units 08:54 WBC 18.0 H (4.8-10.8) X10*3/uL Hgb 8.1 L (12.0-16.0) g/dl Hct 24.6 L (37.0-47.0) % Plt Count 203 (160-400) X10*3/uL [facility] 03/04/25 08:54 Sodium 136 Potassium 3.7 Chloride 102 Carbon Dioxide 25 BUN 47 H Creatinine 2.68 H Calcium 8.3 L Assessment and Plan Patient Active problem list reviewed?: Yes (1) Bicytopenia Status: Acute Assessment and plan: 1. This is a 29-year-old woman with systemic lupus erythematosus, lupus nephritis who is currently admitted for sepsis, acute respiratory failure, bacterial pneumonia and acute renal failure necessitating hemodialysis. She was extubated on 02/15/25. She was found to have E coli and Klebsiella in blood. She has parainfluenza 3, MRSA which is now cleared. She is undergoing hemodialysis for acute lupus nephritis flare. She is on systemic steroids with prednisone. She developed right IJ DVT related to dialysis catheter. She has been on anticoagulation with Eliquis. She had CT angiogram on 03/04/2025 which was negative for pulmonary embolism. She has had testing of lupus anticoagulant antibody, negative for anticardiolipin antibody and beta 2 glycoprotein antibodies. Lupus anticoagulant, coagulation test was not performed. Phosphatidylserine IgG is not relevant for lupus anticoagulant syndrome. She can be continued on Eliquis. She has a provoked DVT and is responding to Eliquis. Clotting tests for lupus anticoagulant can be performed as outpatient. 2. Anemia secondary to GI bleeding. She underwent EGD on 03/03/2025 which showed erosive gastritis and esophageal candidiasis, GAVE. Clip was applied to bleeding vessel and hemo spray applied. She received 2 units PRBC. She should be monitored closely while on anticoagulation. Thank you. - Time Spent With Patient Time Spent with Patient (in minutes): 20
--- NOTE | 2025-03-04 16:54 | P.PNGI_ITS ---
Subjective Subjective Date of Service: 03/04/25 Interval History: s/p EGD no melena no nausea just non specific body aches looks more relaxed Critical Care Time (minutes): 0 Physical Exam 2 Vital Signs: Vital Signs: Last Vital Signs Temp 98.2 F 03/04/25 12:00 Pulse 108 H 03/04/25 12:00 Resp 18 03/04/25 12:00 BP 136/93 H 03/04/25 12:00 Pulse Ox 98 03/04/25 12:00 O2 Del Method Room Air 03/04/25 12:00 O2 Flow Rate 2 02/28/25 09:40 FiO2 33 02/18/25 07:18 Oxygen Flow Rate 3 02/21/25 08:00 BMI result Body Mass Index 19.1 EXAM: GENERAL: The patient is frail VITAL SIGNS:see workflow HEENT: Nonicteric sclerae, PERRLA, EOMI. Oropharynx clear. Moist mucous membranes. Conjunctivae appear well perfused. No thyroid mass. CHEST: Chest wall is nontender. HEART: Regular rate and rhythm without murmurs. LUNGS: Clear to auscultation bilaterally. ABDOMEN: Soft, positive bowel sounds, nontender, no organomegaly.no flank tenderness SKIN: No rash, no excessive bruising, petechiae, or purpura. NEUROLOGIC: Cranial nerves II-XII intact without motor/sensory deficit. Psych: normal affect Objective Data Labs 03/04/25 08:54 03/04/25 08:54 Labs: Laboratory Results - last 24 hr 02/26/25 03/03/25 03/04/25 06:19 16:59 00:18 WBC RBC Hgb Hct MCV MCH MCHC RDW Plt Count MPV Absolute Nucleated RBC Nucleated RBC % (auto) PT 10.5 L INR 0.9 APTT 28.8 aPTT Heparin Protocol 28.8 L 40.0 L D Sodium Potassium Chloride Carbon Dioxide Anion Gap BUN Creatinine Estim Creat Clear Calc Estimated GFR Random Glucose Calcium Beta-2-GPI IgG Ab <2.0 Beta-2-GPI IgA Ab 2.6 Beta-2-GPI IgM Ab <2.0 Phosphatidylserine IgG 68 H Phosphatidylserine IgM 10 Phospholipid Ab Comment see note Anti-Cardiolipin IgG Ab <2.0 Anti-Cardiolipin IgA Ab 2.0 Anti-Cardiolipin IgM Ab <2.0 03/04/25 08:54 WBC 18.0 H RBC 2.59 L Hgb 8.1 L Hct 24.6 L MCV 95.0 MCH 31.3 MCHC 32.9 RDW 17.5 H Plt Count 203 MPV 10.4 Absolute Nucleated RBC 0.040 H Nucleated RBC % (auto) 0.2 PT INR APTT aPTT Heparin Protocol 54.9 D Sodium 136 Potassium 3.7 Chloride 102 Carbon Dioxide 25 Anion Gap 13 BUN 47 H Creatinine 2.68 H Estim Creat Clear Calc 27.3 Estimated GFR 21 Random Glucose 81 Calcium 8.3 L Beta-2-GPI IgG Ab Beta-2-GPI IgA Ab Beta-2-GPI IgM Ab Phosphatidylserine IgG Phosphatidylserine IgM Phospholipid Ab Comment Anti-Cardiolipin IgG Ab Anti-Cardiolipin IgA Ab Anti-Cardiolipin IgM Ab Microbiology Microbiology Results: Microbiology 02/20/25 12:13 Blood - Arterial Blood Culture - Final No growth after 5 days. 02/20/25 12:13 Blood - Arterial Blood Culture - Final No growth after 5 days. 02/16/25 16:36 Blood - Venous Blood Culture - Final No growth after 5 days. 02/15/25 20:03 Blood - Venous Blood Culture - Final No growth after 5 days. 02/16/25 16:36 Blood - Venous Blood Culture - Final Methicillin Res Staph Aureus 02/15/25 20:03 Blood - Venous Blood Culture - Final Methicillin Res Staph Aureus 02/14/25 10:51 Blood - Venous Blood Culture - Final Methicillin Res Staph Aureus 02/14/25 10:27 Blood - Venous Blood Culture - Final Methicillin Res Staph Aureus 02/12/25 09:59 Blood - Venous Blood Culture - Final Methicillin Res Staph Aureus 02/12/25 09:48 Blood - Venous Blood Culture - Final Methicillin Res Staph Aureus 02/11/25 17:44 Blood - Venous Blood Culture - Final Escherichia coli Klebsiella oxytoca 02/11/25 17:17 Blood - Venous Blood Culture - Final Escherichia coli Klebsiella oxytoca Procedures Date of Service Date of Service: 03/04/25 Progress Note: A&P Assessment and plan (1) Acute on chronic anemia: Status: Acute Plan 1/ Anemia, 2/2 slow oozing from 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 Quality Stroke Does the patient have a stroke diagnosis?: No VTE Prior VTE?: No VTE Risk Level:: Medical - moderate - high VTE Device Contraindication: N/A - Device Ordered VTE Drug Contraindication: Treatment Not Indicated
[2025-03-04] MEDS: 0.9 % Sodium Chloride Flush 3 ML SYRINGE IVFLUSH ×2 (17:48→20:17)
[2025-03-04] MEDS: Gabapentin 300 MG CAPSULE PO (17:49)
[2025-03-04 18:00] VITALS: BP 160/95; PULSE 94; RESP 18; TEMP 36.2; O2SAT 98
[2025-03-04 20:00] VITALS: BP 160/102; PULSE 114; RESP 19; TEMP 36.4; O2SAT 98
[2025-03-04] MEDS: HYDROmorphone HCl 1 MG/ML SYRINGE 0.5 MG IVPUSH (20:16)
[2025-03-04] MEDS: DAPTOmycin 500 MG in 0.9 % Sodium Chloride 50 ML 97.95 MG IV (20:17)
--- NOTE | 2025-03-04 21:39 | PC.NURSE ---
Pt c/o of 10/10 pain all over wants IV dilaudid not due for oxycodone. notified ordered dilaudid 0.5 mg IV x 1 dose given at 2014 with good effect pt states pain 5/10.
[2025-03-04] MEDS: Melatonin 3 MG TABLET 6 MG PO (22:36)
[2025-03-05] VITALS: RESP 16
[2025-03-05 04:00] VITALS: BP 148/84; PULSE 99; RESP 17; TEMP 36.3; O2SAT 99
[2025-03-05] MEDS: Acetaminophen 325 MG TABLET 650 MG PO ×2 (04:32→23:42)
[2025-03-05] MEDS: oxyCODONE HCl Immed Release 5 MG TABLET 10 MG PO ×4 (04:32→23:41)
[2025-03-05] MEDS: Omeprazole 40 MG CAPSULE.DR PO ×2 (05:50→16:56)
[2025-03-05 06:48] VITALS: BP 150/90; PULSE 105; RESP 15; TEMP 36.6; O2SAT 99
[2025-03-05 08:25] LABS: HIV AB/AG Nonreactive (Nonreactive); HIV Num 1 0.07 S/CO (0.00-0.99)
[2025-03-05] MEDS: Sodium Bicarbonate 650 MG TABLET PO ×2 (08:44→20:18)
[2025-03-05] MEDS: cefuroxime axetiL 500 MG TABLET PO ×2 (08:44→20:19)
[2025-03-05] MEDS: Apixaban 2.5 MG TABLET PO ×2 (08:44→20:19)
[2025-03-05] MEDS: Sevelamer Carbonate Tablet 800 MG TABLET PO ×3 (08:45→16:56)
[2025-03-05] MEDS: predniSONE 20 MG TABLET 60 MG PO (08:45)
[2025-03-05] MEDS: calcitrioL 0.25 MCG CAPSULE PO (08:45)
[2025-03-05] MEDS: Sucralfate 1 GM TABLET PO ×2 (08:45→16:56)
[2025-03-05] MEDS: 0.9 % Sodium Chloride Flush 3 ML SYRINGE IVFLUSH (08:52)
[2025-03-05 10:57] VITALS: BP 158/90; PULSE 107; RESP 15; TEMP 36.4; O2SAT 99
--- NOTE | 2025-03-05 11:48 | P.PNIM_ITS ---
Subjective Subjective Date of Service: 03/05/25 Interval History: seen and examined this morning follow up for respiratory failure, renal failure no sob Review of Systems Review of Systems: Yes all other systems are reviewed and are negative Constitutional Constitutional: Denies chills and Denies fever(s) Cardiovascular Cardiovascular: Denies chest pain, Denies palpitations, Denies dyspnea and Denies dyspnea on exertion Respiratory Respiratory: Denies dyspnea and Denies dyspnea on exertion Gastrointestinal Gastrointestinal: Denies abdominal pain and Denies vomiting Endocrine Endocrine: Denies palpitations Physical Exam 2 Vital Signs: Vital Signs: Last Vital Signs Temp 97.6 F 03/05/25 10:57 Pulse 107 H 03/05/25 10:57 Resp 15 03/05/25 10:57 BP 158/90 H 03/05/25 10:57 Pulse Ox 99 03/05/25 10:57 O2 Del Method Room Air 03/05/25 10:57 O2 Flow Rate 2 02/28/25 09:40 FiO2 33 02/18/25 07:18 Oxygen Flow Rate 3 02/21/25 08:00 BMI result Body Mass Index 19.1 Appearing in no acute distress lung sounds are clear to auscultation heart regular rate rhythm, clear S1, S2 positive bowel sounds, abdomen is soft, nontender neuro patient is alert x3, no focal deficits Objective Data Active Medications Acetaminophen (Acetaminophen 325 Mg Tablet) 650 mg PO Q6H PRN PRN Reason: Pain, Mild 1-3,fever,headache Last Admin: 03/05/25 04:32 Dose: 650 mg Documented By: WARNER Apixaban (Apixaban 2.5 Mg Tablet) 2.5 mg PO BID [facility] Last Admin: 03/05/25 08:44 Dose: 2.5 mg Documented By: JOSE Calcitriol (Calcitriol 0.25 Mcg Capsule) 0.25 mcg PO DAILY [facility] Last Admin: 03/05/25 08:45 Dose: 0.25 mcg Documented By: JOSE Cefuroxime Axetil (Cefuroxime Axetil 500 Mg Tablet) 500 mg PO Q12H [facility] Stop: 03/10/25 08:59 Last Admin: 03/05/25 08:44 Dose: 500 mg Documented By: JOSE Fluconazole (Fluconazole 50 Mg Tablet) 50 mg PO DAILY [facility] Last Admin: 03/05/25 08:45 Dose: 50 mg Documented By: JOSE Gabapentin (Gabapentin 300 Mg Capsule) 300 mg PO MoWeFr@1800 [facility] Last Admin: 03/04/25 17:49 Dose: 300 mg Documented By: CORINNE Heparin Sodium (Porcine) (Heparin Sodium,Porcine 5,000 Unit/Ml Vial) 5,000 unit INTRACATH MOWEFR@1645 [facility] Last Admin: 03/04/25 17:43 Dose: Not Given Documented By: ZEINAB Non-Admin Reason: given in dialysis Daptomycin 340 mg/ Sodium (Chloride) 56.8 mls @ 100 mls/hr IV MoWe@1999 [facility] Last Infusion: 03/02/25 21:59 Dose: Infused Documented By: JESSICA Daptomycin 500 mg/ Sodium (Chloride) 60 mls @ 97.959 mls/hr IV Fr@1999 [facility] Last Infusion: 03/04/25 21:00 Dose: Infused Documented By: WARNER Loperamide HCl (Loperamide Hcl 2 Mg Capsule) 4 mg PO Q6H PRN PRN Reason: Diarrhea Last Admin: 02/27/25 21:28 Dose: 4 mg Documented By: ROHIT Lorazepam (Lorazepam 1 Mg Tablet) 1 mg PO QD PRN; Taper PRN Reason: Anxiety Stop: 03/05/25 13:03 Last Admin: 03/04/25 08:15 Dose: 1 mg Documented By: NGA Melatonin (Melatonin 3 Mg Tablet) 6 mg PO BEDTIME PRN PRN Reason: Insomnia Last Admin: 03/04/25 22:36 Dose: 6 mg Documented By: WARNER Naloxone HCl (Naloxone Hcl 0.4 Mg/Ml Vial) 0.2 mg IVPUSH Q2M PRN PRN Reason: Excessive sedation or RR < 8 Omeprazole (Omeprazole 40 Mg Capsule.Dr) 40 mg PO BID@0630,1630 [facility] Last Admin: 03/05/25 05:50 Dose: 40 mg Documented By: WARNER Oxycodone HCl (Oxycodone Hcl Immed Release 5 Mg Tablet) 10 mg PO Q6H PRN PRN Reason: Pain, Moderate(Pain Scale 4-6) Last Admin: 03/05/25 10:33 Dose: 10 mg Documented By: JOSE Prednisone (Prednisone 20 Mg Tablet) 60 mg PO DAILY [facility] Last Admin: 03/05/25 08:45 Dose: 60 mg Documented By: JOSE Sevelamer Carbonate (Sevelamer Carbonate Tablet 800 Mg Tablet) 800 mg PO TIDWM [facility] Last Admin: 03/05/25 08:45 Dose: 800 mg Documented By: JOSE Sodium Bicarbonate (Sodium Bicarbonate 650 Mg Tablet) 650 mg PO BID [facility] Last Admin: 03/05/25 08:44 Dose: 650 mg Documented By: JOSE Sodium Chloride (0.9 % Sodium Chloride Flush 3 Ml Syringe) 3 ml IVFLUSH QSHIFT [facility] Last Admin: 03/05/25 08:52 Dose: 3 ml Documented By: JOSE Sucralfate (Sucralfate 1 Gm Tablet) 1 gm PO BIDAC [facility] Last Admin: 03/05/25 08:45 Dose: 1 gm Documented By: JOSE Trazodone HCl (Trazodone Hcl 25 Mg Halftab) 25 mg PO BEDTIME PRN PRN Reason: Sleep Last Admin: 03/04/25 00:20 Dose: 25 mg Documented By: MARAINNA Labs 03/04/25 08:54 03/04/25 08:54 Labs: Laboratory Results - last 24 hr 03/04/25 14:29 HIV 1&2 Ab/P24 Ag 4thGn Nonreactive Assessment and Plan (1) Cavitary pneumonia: Status: Acute Plan 29-year-old female with underlying lupus with lupus nephritis on 10 mg prednisone daily admitted on 02/11/2025 with dyspnea and hypoxia secondary to right-sided pneumonia with polymicrobial bacteremia requiring intubation and ventilatory support. Hospital course further complicated by acute renal failure requiring initiation of hemodialysis. Followed by nephrology service with concern for possible lupus nephritis flare, started on high-dose systemic glucocorticoids. Extubated on 02/15/2025. Cavitary pneumonia has been treated for pneumonia repeat imaging now with cavitary pneumonia pulm consult pending Normocytic anemia due to GI bleeding Previously Seen by GI>no signs of overt bleeding, no indication for EGD at this time now with drop in H/H; s/p EGD 03/03 showing erosive gastritis, esophageal candidiasis, gave. plan for Carafate b.i.d. x2 weeks, high dose PPI upon discharge, fluconazole (renal dosing) and outpatient follow up with GI s/p 2 units PRBC H/H stable Acute renal failure May be multifactorial due to [place] from tubular injury due to sepsis as well as possible active lupus nephritis requiring initiation of HD Received high-dose [id number], transitioned to oral prednisone 60 mg 02/17 continue current dose of steroids upon discharge - further management per nephrology following results of kidney biopsy results Nephrology following continue HD TTS, calcitriol, renvela, sodium bicarb s/p permcath 02/25 renal biopsy 02/28/25 - follow pathology o/p dialysis in [place] following discharge Acute right jugular vein clot provoked, in location of previous IV will need 3 months of AC upon discharge vascular surgery input CTA negative for PE ok to transition back to [facility] Acute uncontrolled generalized Pain continues to be difficult to control Multimodal approach for pain reg change Gabapentin dosing to once daily on dialysis days IV dilaudid discontinued multiple med trial., pt prefers oxycodone, will uptitrate to 10 mg Severe sepsis due to Polymicrobial bacteremia. Sepsis resolved Blood cultures growing E coli, Klebsiella, MRSA Seen by Cardiology, recommend treatment for infective endocarditis, repeat echo does not visualize tricuspid or pulmonic valves well s/p IV vancomycin, ceftriaxone>seen by ID rec IV dapto (6 weeks) from first negative cultures (02/20) end date 04/04 Completed 8 days of ceftriaxone will switch to 14 days po ceftin to end 03/10 Hyponatremia>Resolved Probably dilutional >improved with dialysis Elevated blood pressures. Improving Bp stable Acute respiratory failure with hypoxia due to pneumonia Status post extubation, required HFNC, now weaned to room air Tested + for parainfluenza virus. Mycoplasma IgG + and IgM negative, nonspecific per ID, no need for azithromycin Currently on daptomycin Thrombocytopenia- Resolved Likely due to acute viral illness/sepsis DIC, HLH ruled out Hematology following >no further workup recommended platelets have normalized Sinus tachycardia- intermittent, seems to be due to pain EKG reviewed by cardiology>no further work up recommended at this time Given persistent hypoxia, and tachycardia VQ scan ordered to rule out PE> possibility of pulmonary embolism can not be excluded Discussed with pulmonology, check venous Doppler ultrasound to lower extremities>negative for DVT CTA negative for PE DVT prophylaxis with SCD boots and heparin Full code Disposition. PT recommended home with PT when medically clear Quality Stroke Does the patient have a stroke diagnosis?: No VTE Prior VTE?: No VTE Risk Level:: Medical - moderate - high VTE Device Contraindication: N/A - Device Ordered VTE Drug Contraindication: Treatment Not Indicated
--- NOTE | 2025-03-05 13:34 | P.PNPL_ITS ---
Subjective Subjective Date of Service: 03/05/25 Principal diagnosis: MRSA bacteremia Interval history: The patient was seen and examined. Having a lot of pain. Breathing is good. On PO prednisone. Had a repeat CT chest with significant improvement compared to previous. Requesting bloodwork. IV solumedrol probably best in view of a severe Lupus flare. Would benefit from discussing case with Rheumatology for guidance. Consider bronchoscopy if any suspicion of ongoing infection. In the meantime, will r/o fungal infections. Objective Data Labs 03/04/25 08:54 03/04/25 08:54 Labs: Laboratory Results - last 24 hr 03/04/25 14:29 HIV 1&2 Ab/P24 Ag 4thGn Nonreactive Microbiology Microbiology Results: Microbiology 02/20/25 12:13 Blood - Arterial Blood Culture - Final No growth after 5 days. 02/20/25 12:13 Blood - Arterial Blood Culture - Final No growth after 5 days. 02/16/25 16:36 Blood - Venous Blood Culture - Final No growth after 5 days. 02/15/25 20:03 Blood - Venous Blood Culture - Final No growth after 5 days. 02/16/25 16:36 Blood - Venous Blood Culture - Final Methicillin Res Staph Aureus 02/15/25 20:03 Blood - Venous Blood Culture - Final Methicillin Res Staph Aureus 02/14/25 10:51 Blood - Venous Blood Culture - Final Methicillin Res Staph Aureus 02/14/25 10:27 Blood - Venous Blood Culture - Final Methicillin Res Staph Aureus 02/12/25 09:59 Blood - Venous Blood Culture - Final Methicillin Res Staph Aureus 02/12/25 09:48 Blood - Venous Blood Culture - Final Methicillin Res Staph Aureus 02/11/25 17:44 Blood - Venous Blood Culture - Final Escherichia coli Klebsiella oxytoca 02/11/25 17:17 Blood - Venous Blood Culture - Final Escherichia coli Klebsiella oxytoca Review of Systems Constitutional: Reports as per HPI and Denies weakness Reports Normal hearing present and Denies dizziness Cardiovascular: Reports as per HPI, Denies chest pain, Denies chest pain at rest, Denies chest pain with activity, Denies dyspnea and Denies dyspnea on exertion Respiratory: Reports as per HPI, Denies cough, Denies dyspnea and Denies dyspnea on exertion Gastrointestinal: Reports as per HPI, Denies abdominal pain, Denies nausea and Denies vomiting Musculoskeletal: Denies numbness Skin/Breast: Reports as per HPI, Denies erythema and Denies wounds Reports Normal hearing present, Denies dizziness, Denies numbness, Denies Sensory deficit (Neuro) and Denies weakness Psychiatric: Reports no additional psychiatric complaints Endocrine: Reports no additional endocrine complaints Physical Exam 2 Vital Signs: Vital Signs: Last Vital Signs Temp 97.6 F 03/05/25 10:57 Pulse 107 H 03/05/25 10:57 Resp 15 03/05/25 10:57 BP 158/90 H 03/05/25 10:57 Pulse Ox 99 03/05/25 10:57 O2 Del Method Room Air 03/05/25 10:57 O2 Flow Rate 2 02/28/25 09:40 FiO2 33 02/18/25 07:18 Oxygen Flow Rate 3 02/21/25 08:00 BMI result Body Mass Index 19.1 Appearing in no acute distress lung sounds are clear to auscultation heart regular rate rhythm, clear S1, S2 positive bowel sounds, abdomen is soft, nontender neuro patient is alert x3, no focal deficits Neuro: Cranial nerves: Yes Normal hearing present Sensory Exam: No Sensory deficit (Neuro) Procedures Date of Service Date of Service: 03/05/25 Assessment and Plan Assessment and plan (1) Pericarditis: Problem details: 01/2021 Status: Acute (2) Pericardial effusion: Status: Acute (3) Lupus nephritis: Status: Acute (4) Systemic lupus erythematosus: Problem details: Onset March 2016: (anemia, rashes, inflammatory arthritis, 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 06/2021 kidney biopsy not a good sample. 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 Status: Acute (5) Pneumonia: Status: Acute (6) Cavitary pneumonia: Status: Acute Plan IV solumedrol would benefit from imput from Rheumatology Bloodwork, r/o ongoing infectious process pain management repeat CXR consider bronchoscopy if no better Time Spent With Patient Time: Total time managing care of this patient today ____ minutes. Progress Note: Quality Stroke Does the patient have a stroke diagnosis?: No
[2025-03-05] MEDS: methylPREDNISolone Sod Succ 1,000 MG in 0.9 % Sodium Chloride 50 ML 66 MG IV (14:04)
[2025-03-05] MEDS: HYDROmorphone HCl 1 MG/ML SYRINGE 0.75 MG IVPUSH (15:29)
--- NOTE | 2025-03-05 16:56 | PC.NURSE ---
D/C Sputum sample, not producing sputum.
[2025-03-05 17:04] VITALS: BP 155/93; PULSE 99; RESP 18; TEMP 36.1; O2SAT 95
[2025-03-05 19:31] VITALS: BP 156/95; PULSE 100; RESP 14; TEMP 36.6; O2SAT 98
[2025-03-05] MEDS: traZODone HCL 25 MG HALFTAB PO (23:44)
--- NOTE | 2025-03-05 23:53 | PC.NURSE ---
Pt c/o of 10/10 pain all over body, crying/moaning in bed. MD Padilla was notified of the situation. Per MD to give PRN Oxycodone earlier instead at next due time at 02:19. PRN Oxycodone was administered to pt at 23:41, along w/ Tylenol & Trazodone for sleep, see MAR. No other orders were given at this time. Will continue to monitor the pt's pain.
[2025-03-06] VITALS (12 sets, daily range): BP systolic 148–174; BP diastolic 71–92; PULSE 70–97; RESP 15–20; TEMP 36.6–36.9; O2SAT 98–100
[2025-03-06] MEDS: oxyCODONE HCl Immed Release 5 MG TABLET 10 MG PO (05:50)
[2025-03-06] MEDS: Acetaminophen 325 MG TABLET 650 MG PO (05:51)
[2025-03-06] MEDS: Omeprazole 40 MG CAPSULE.DR PO ×2 (05:51→17:09)
[2025-03-06 06:33] LABS: Hematocrit 21.7 % (37.0-47.0); Mean Corpuscular HGB Conc 32.3 g/dl (31.0-35.0); Mean Corpuscular Hemoglobin 30.6 pg (27.0-33.0); Mean Corpuscular Volume 94.8 fL (80.0-98.0); Mean Platelet Volume 9.8 fL (9.4-12.3); NRBC Pct Auto 0.2 /100WBC (0.0-0.2); Platelet Count 207 X10*3/uL (160-400); Red Blood Count 2.29 X10*6/uL (4.20-5.50); Red Cell Distribution Width 17.2 % (11.0-16.0); White Blood Count 18.3 X10*3/uL (4.8-10.8)
[2025-03-06] MEDS: Sevelamer Carbonate Tablet 800 MG TABLET PO ×3 (08:01→17:09)
[2025-03-06] MEDS: Sucralfate 1 GM TABLET PO ×2 (08:01→17:09)
[2025-03-06] MEDS: calcitrioL 0.25 MCG CAPSULE PO (08:01)
[2025-03-06] MEDS: cefuroxime axetiL 500 MG TABLET PO ×2 (08:01→21:27)
[2025-03-06] MEDS: Sodium Bicarbonate 650 MG TABLET PO ×2 (08:02→21:28)
[2025-03-06] MEDS: methylPREDNISolone Sod Succ 1,000 MG in 0.9 % Sodium Chloride 50 ML 66 MG IV (08:02)
[2025-03-06] MEDS: Apixaban 2.5 MG TABLET PO ×2 (08:02→21:28)
[2025-03-06] MEDS: 0.9 % Sodium Chloride Flush 3 ML SYRINGE IVFLUSH ×3 (08:06→21:28)
--- NOTE | 2025-03-06 08:58 | HO.PM.IMPN ---
Subjective Subjective Date of Service: 03/06/25 Interval History: Follow up for respiratory failure, renal failure, anemia, pain Review of Systems Review of Systems: Yes all other systems are reviewed and are negative Constitutional Constitutional: Denies chills and Denies fever(s) Cardiovascular Cardiovascular: Denies chest pain, Denies palpitations, Denies dyspnea and Denies dyspnea on exertion Respiratory Respiratory: Denies dyspnea and Denies dyspnea on exertion Gastrointestinal Gastrointestinal: Denies abdominal pain and Denies vomiting Endocrine Endocrine: Denies palpitations Physical Exam Vital Signs: Vital Signs: Last Vital Signs Temp 98 F 03/06/25 06:57 Pulse 84 03/06/25 06:57 Resp 16 03/06/25 06:57 BP 163/90 H 03/06/25 06:57 Pulse Ox 100 03/06/25 06:57 O2 Del Method Room Air 03/06/25 06:57 O2 Flow Rate 2 02/28/25 09:40 FiO2 33 02/18/25 07:18 Oxygen Flow Rate 3 02/21/25 08:00 BMI result Body Mass Index 19.1 Appearing in no acute distress lung sounds are clear to auscultation heart regular rate rhythm, clear S1, S2 positive bowel sounds, abdomen is soft, nontender neuro patient is alert x3, no focal deficits Objective Data Active Medications Acetaminophen (Acetaminophen 325 Mg Tablet) 650 mg PO Q6H PRN PRN Reason: Pain, Mild 1-3,fever,headache Last Admin: 03/06/25 05:51 Dose: 650 mg Documented By: NATALYA Comments: per pt request Apixaban (Apixaban 2.5 Mg Tablet) 2.5 mg PO BID [facility] Last Admin: 03/06/25 08:02 Dose: 2.5 mg Documented By: JOSE Calcitriol (Calcitriol 0.25 Mcg Capsule) 0.25 mcg PO DAILY [facility] Last Admin: 03/06/25 08:01 Dose: 0.25 mcg Documented By: JOSE Cefuroxime Axetil (Cefuroxime Axetil 500 Mg Tablet) 500 mg PO Q12H [facility] Stop: 03/10/25 08:59 Last Admin: 03/06/25 08:01 Dose: 500 mg Documented By: JOSE Fluconazole (Fluconazole 50 Mg Tablet) 50 mg PO DAILY [facility] Last Admin: 03/06/25 08:01 Dose: 50 mg Documented By: JOSE Gabapentin (Gabapentin 300 Mg Capsule) 300 mg PO MoWeFr@1800 [facility] Last Admin: 03/04/25 17:49 Dose: 300 mg Documented By: CORINNE Heparin Sodium (Porcine) (Heparin Sodium,Porcine 5,000 Unit/Ml Vial) 5,000 unit INTRACATH MOWEFR@1645 [facility] Last Admin: 03/04/25 17:43 Dose: Not Given Documented By: ZEINAB Non-Admin Reason: given in dialysis Daptomycin 340 mg/ Sodium (Chloride) 56.8 mls @ 100 mls/hr IV MoWe@1999 [facility] Last Infusion: 03/02/25 21:59 Dose: Infused Documented By: JESSICA Daptomycin 500 mg/ Sodium (Chloride) 60 mls @ 97.959 mls/hr IV Fr@1999 [facility] Last Infusion: 03/04/25 21:00 Dose: Infused Documented By: WARNER Methylprednisolone Sodium Succinate 1,000 mg/ Sodium Chloride 66 mls @ 66 mls/hr IV DAILY [facility] Stop: 03/08/25 13:24 Last Admin: 03/06/25 08:02 Dose: 66 mls/hr Documented By: JOSE Loperamide HCl (Loperamide Hcl 2 Mg Capsule) 4 mg PO Q6H PRN PRN Reason: Diarrhea Last Admin: 02/27/25 21:28 Dose: 4 mg Documented By: ROHIT Melatonin (Melatonin 3 Mg Tablet) 6 mg PO BEDTIME PRN PRN Reason: Insomnia Last Admin: 03/04/25 22:36 Dose: 6 mg Documented By: WARNER Naloxone HCl (Naloxone Hcl 0.4 Mg/Ml Vial) 0.2 mg IVPUSH Q2M PRN PRN Reason: Excessive sedation or RR < 8 Omeprazole (Omeprazole 40 Mg Capsule.) 40 mg PO BID@0630,1630 [facility] Last Admin: 03/06/25 05:51 Dose: 40 mg Documented By: NATALYA Oxycodone HCl (Oxycodone Hcl Immed Release 5 Mg Tablet) 10 mg PO Q6H PRN PRN Reason: Pain, Moderate(Pain Scale 4-6) Last Admin: 03/06/25 05:50 Dose: 10 mg Documented By: NATALYA Comments: per pt request Prednisone (Prednisone 20 Mg Tablet) 60 mg PO DAILY [facility] On Hold: 03/05/25 13:21 Last Admin: 03/05/25 08:45 Dose: 60 mg Documented By: JOSE Sevelamer Carbonate (Sevelamer Carbonate Tablet 800 Mg Tablet) 800 mg PO TIDWM [facility] Last Admin: 03/06/25 08:01 Dose: 800 mg Documented By: JOSE Sodium Bicarbonate (Sodium Bicarbonate 650 Mg Tablet) 650 mg PO BID [facility] Last Admin: 03/06/25 08:02 Dose: 650 mg Documented By: JOSE Sodium Chloride (0.9 % Sodium Chloride Flush 3 Ml Syringe) 3 ml IVFLUSH QSHIFT [facility] Last Admin: 03/06/25 08:06 Dose: 3 ml Documented By: JOSE Sucralfate (Sucralfate 1 Gm Tablet) 1 gm PO BIDAC [facility] Last Admin: 03/06/25 08:01 Dose: 1 gm Documented By: JOSE Trazodone HCl (Trazodone Hcl 25 Mg Halftab) 25 mg PO BEDTIME PRN PRN Reason: Sleep Last Admin: 03/05/25 23:44 Dose: 25 mg Documented By: NATALYA Labs 03/06/25 09:34 03/04/25 08:54 Labs: Laboratory Results - last 24 hr 03/05/25 03/06/25 03/06/25 14:36 05:54 07:57 MCV 94.8 MCH 30.6 MCHC 32.3 RDW 17.2 H Plt Count 207 MPV 9.8 Absolute Nucleated RBC 0.030 H Nucleated RBC % (auto) 0.2 Proteinase 3 (PR3) Ab Cancelled Myeloperoxidase Ab Cancelled Blood Type A Positive Antibody Screen NEGATIVE Crossmatch See Detail Assessment and Plan (1) Cavitary pneumonia: Status: Acute Plan 29-year-old female with underlying lupus with lupus nephritis on 10 mg prednisone daily admitted on 02/11/2025 with dyspnea and hypoxia secondary to right-sided pneumonia with polymicrobial bacteremia requiring intubation and ventilatory support. Hospital course further complicated by acute renal failure requiring initiation of hemodialysis. Followed by nephrology service with concern for possible lupus nephritis flare, started on high-dose systemic glucocorticoids. Extubated on 02/15/2025. Cavitary pneumonia has been treated for pneumonia repeat imaging now with cavitary pneumonia pulm consult > IV Solu-Medrol, blood work for ongoing infectious process pain management, consider bronchoscopy if no improvement Normocytic anemia due to GI bleeding Previously Seen by GI>no signs of overt bleeding, no indication for EGD at this time now with drop in H/H; s/p EGD 03/03 showing erosive gastritis, esophageal candidiasis, gave. Carafate b.i.d. x2 weeks, high dose PPI upon discharge, fluconazole (renal dosing) and outpatient follow up with GI s/p 2 units PRBC H/H down again today 7.0/21.7, 1 unit PRBC ordered Acute renal failure May be multifactorial due to KALEIGH from tubular injury due to sepsis as well as possible active lupus nephritis requiring initiation of HD Received high-dose [id number], transitioned to oral prednisone 60 mg 02/17 continue current dose of steroids upon discharge - further management per nephrology following results of kidney biopsy results Nephrology following continue HD TTS, calcitriol, renvela, sodium bicarb s/p permcath 02/25 renal biopsy 02/28/25 - follow pathology o/p dialysis in [place] following discharge Acute right jugular vein clot provoked, in location of previous IV will need 3 months of AC upon discharge vascular surgery input CTA negative for PE ok to transition back to [facility] Acute uncontrolled generalized Pain continues to be difficult to control Multimodal approach for pain reg change Gabapentin dosing to once daily on dialysis days IV dilaudid discontinued multiple med trial., pt prefers oxycodone, will uptitrate to 10 mg Severe sepsis due to Polymicrobial bacteremia. Sepsis resolved Blood cultures growing E coli, Klebsiella, MRSA Seen by Cardiology, recommend treatment for infective endocarditis, repeat echo does not visualize tricuspid or pulmonic valves well s/p IV vancomycin, ceftriaxone>seen by ID rec IV dapto (6 weeks) from first negative cultures (02/20) end date 04/04 Completed 8 days of ceftriaxone will switch to 14 days po ceftin to end 03/10 Hyponatremia>Resolved Probably dilutional >improved with dialysis Elevated blood pressures. Improving Bp stable Acute respiratory failure with hypoxia due to pneumonia Status post extubation, required HFNC, now weaned to room air Tested + for parainfluenza virus. Mycoplasma IgG + and IgM negative, nonspecific per ID, no need for azithromycin Currently on daptomycin Thrombocytopenia- Resolved Likely due to acute viral illness/sepsis DIC, HLH ruled out Hematology following >no further workup recommended platelets have normalized Sinus tachycardia- intermittent, seems to be due to pain EKG reviewed by cardiology>no further work up recommended at this time Given persistent hypoxia, and tachycardia VQ scan ordered to rule out PE> possibility of pulmonary embolism can not be excluded Discussed with pulmonology, check venous Doppler ultrasound to lower extremities>negative for DVT CTA negative for PE DVT prophylaxis with SCD boots and heparin Full code Disposition. PT recommended home with PT when medically clear Quality Stroke Does the patient have a stroke diagnosis?: No VTE Prior VTE?: No VTE Risk Level:: Medical - moderate - high VTE Device Contraindication: N/A - Device Ordered VTE Drug Contraindication: Treatment Not Indicated
[2025-03-06] MEDS: HYDROmorphone HCl 1 MG/ML SYRINGE 0.75 MG IVPUSH ×4 (09:27→22:02)
[2025-03-06 09:55] LABS: MANUAL DIFF FLAG NO
[2025-03-06 09:58] LABS: Basophils Percent Auto 0.1 % (0-2); Hematocrit 26.6 % (37.0-47.0); Hemoglobin 8.7 g/dl (12.0-16.0); Imm Gran Abs Auto 1.04 X10*3/uL (0.00-0.03); Imm Gran Pct Auto 4.9 % (0.0-0.4); Immature Retic Fraction 28.1 % (3.0-15.9); Lymphocytes Absolute Auto 1.6 X10*3/uL (1.2-4.9); Lymphocytes Percent Auto 7.7 % (20-40); Mean Corpuscular HGB Conc 32.7 g/dl (31.0-35.0); Mean Corpuscular Volume 94.7 fL (80.0-98.0); Mean Platelet Volume 10.2 fL (9.4-12.3); Monocytes Absolute Auto 0.4 X10*3/uL (0.1-1.2); Monocytes Percent Auto 1.7 % (2-11); Neutrophils Absolute Auto 18.2 x10*3/uL (2.0-8.3); Neutrophils Percent Auto 85.6 % (45-73); Platelet Count 235 X10*3/uL (160-400); Red Blood Count 2.81 X10*6/uL (4.20-5.50); Red Cell Distribution Width 17.3 % (11.0-16.0); Reticulocyte Percent 2.4 % (0.5-1.8); Reticulocytes Absolute 0.067 X10*6/uL (0.026-0.095); White Blood Count 21.3 X10*3/uL (4.8-10.8)
[2025-03-06 10:37] LABS: Erythrocyte Sedimentation Rate 78 MM/HR (0-20)
[2025-03-06] MEDS: Clotrimazole 1 % Vaginal Cream 45 GM TUBE 1 APPL VAGINAL (11:33)
[2025-03-06] MEDS: Melatonin 3 MG TABLET 6 MG PO (22:02)
[2025-03-07] MEDS: HYDROmorphone HCl 1 MG/ML SYRINGE 0.75 MG IVPUSH ×6 (02:02→23:30)
[2025-03-07] MEDS: Acetaminophen 325 MG TABLET 650 MG PO (03:42)
[2025-03-07] MEDS: oxyCODONE HCl Immed Release 5 MG TABLET 10 MG PO ×2 (03:42→09:13)
[2025-03-07 03:49] VITALS: BP 162/86; PULSE 68; RESP 16; TEMP 36.4; O2SAT 99
[2025-03-07] MEDS: Omeprazole 40 MG CAPSULE.DR PO ×2 (05:58→17:05)
[2025-03-07 07:35] VITALS: BP 139/90; PULSE 92; RESP 16; TEMP 36.3; O2SAT 94
--- NOTE | 2025-03-07 09:00 | P.PNNP_ITS ---
Subjective Subjective Date of Service: 03/07/25 Principal diagnosis: MRSA bacteremia Interval history: seen and examined this morning following for renal failure now on HD had cavitating pneumonia on 03/04 CT so discharge delayed patient states she is doing ok this morning. Reports she voided urine x2 yesterday- states estimates a cup or so each time though she did not measure. Continued widespread pain, no other new changes. Physical Exam 2 Vital Signs: Vital Signs: Last Vital Signs Temp 97.3 F 03/07/25 07:35 Pulse 92 03/07/25 07:35 Resp 16 03/07/25 07:35 BP 139/90 H 03/07/25 07:35 Pulse Ox 94 03/07/25 07:35 O2 Del Method Room Air 03/07/25 07:35 O2 Flow Rate 2 02/28/25 09:40 FiO2 33 02/18/25 07:18 Oxygen Flow Rate 3 02/21/25 08:00 BMI result Body Mass Index 19.1 Const: General: no acute distress, alert and awake Resp: Effort & Inspection: normal respiratory effort Auscultation: clear to auscultation bilaterally Cardio: Rate: regular rate Rhythm: regular rhythm Heart sounds: S1 normal heart sound present and S2 normal heart sound present GI: Palpation (GI): Soft to palpation and nontender Skin: Rashes: no rashes Extrem: General: No edema Objective Data Labs 03/07/25 11:47 03/07/25 11:47 Labs: Laboratory Results - last 24 hr 03/07/25 11:47 WBC 23.1 H RBC 3.09 L Hgb 9.5 L Hct 28.3 L MCV 91.6 MCH 30.7 MCHC 33.6 RDW 17.2 H Plt Count 249 MPV 9.9 Absolute Nucleated RBC 0.020 H Nucleated RBC % (auto) 0.1 Sodium 135 Potassium 4.6 D Chloride 102 Carbon Dioxide 21 L Anion Gap 17 BUN 90 H Creatinine 2.56 H Estim Creat Clear Calc 28.6 Estimated GFR 22 Random Glucose 125 H Calcium 8.6 Phosphorus 5.3 H Microbiology Microbiology Results: Microbiology 02/20/25 12:13 Blood - Arterial Blood Culture - Final No growth after 5 days. 02/20/25 12:13 Blood - Arterial Blood Culture - Final No growth after 5 days. 02/16/25 16:36 Blood - Venous Blood Culture - Final No growth after 5 days. 02/15/25 20:03 Blood - Venous Blood Culture - Final No growth after 5 days. 02/16/25 16:36 Blood - Venous Blood Culture - Final Methicillin Res Staph Aureus 02/15/25 20:03 Blood - Venous Blood Culture - Final Methicillin Res Staph Aureus 02/14/25 10:51 Blood - Venous Blood Culture - Final Methicillin Res Staph Aureus 02/14/25 10:27 Blood - Venous Blood Culture - Final Methicillin Res Staph Aureus 02/12/25 09:59 Blood - Venous Blood Culture - Final Methicillin Res Staph Aureus 02/12/25 09:48 Blood - Venous Blood Culture - Final Methicillin Res Staph Aureus 02/11/25 17:44 Blood - Venous Blood Culture - Final Escherichia coli Klebsiella oxytoca 02/11/25 17:17 Blood - Venous Blood Culture - Final Escherichia coli Klebsiella oxytoca Procedures Date of Service Date of Service: 03/07/25 Assessment & Plan Assessment and plan (1) Acute renal failure (ARF): Status: Acute (2) Systemic lupus erythematosus: Status: Acute Plan Initial KALEIGH likely due to tubular injury from sepsis and 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 Patient now on HD MWF. Likely has active lupus nephritis- low C4 with elevated REN titers, elevated DS DNA ab- renal biopsy is pending. patient has been making more urine- two larger voids (unmeasured) yesterday, one so far this morning. will get 24 hour urine creatinine clearance Has left permcath placed left SVC on 02/25. no erythema or swelling or drainage at site. patient to start outpatient Dialysis MWF at [facility] on [facility]. Start date 03/09/25 time 10:55, arrive at 10:10 a.m. She will need daptomycin IV 350mg Friday, Friday and 500mg Fridays post dialysis through 04/04/25 for total of 6 weeks. hospital residential case manager should liase with [facility] unit before D/c and ensure transportation is in order for patient. 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 Recommends IV daptomycin renally dosed for 6 weeks (receiving 340mg IV and 500mg IV Fridays, since 02/21/25), ceftin 500mg PO q12h for 14 days total, 02/24-03/10/25. phosphorous 5.3, continue sevelamer- ensure compliance with meals. Low phos diet. calcium 8.6, PTH 213, vitamin D levels low. 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 Now on eliquis for three months for provoked DVT. Also had perfusion scan raising suspicion for PE, CTA negative for PE. Antiphospholipid antibody panel: phosphatidylserine IgG is elevated, per hematology not relevant for lupus anticoagulant syndrome. avoid nephrotoxins Continue supportive care Discussed with Dr Mcnair Time Spent With Patient Time: Total time managing care of this patient today ____ minutes. Progress Note: Quality Stroke Does the patient have a stroke diagnosis?: No
[2025-03-07] MEDS: Sevelamer Carbonate Tablet 800 MG TABLET PO ×3 (09:13→17:05)
[2025-03-07] MEDS: 0.9 % Sodium Chloride Flush 3 ML SYRINGE IVFLUSH ×3 (09:13→19:30)
[2025-03-07] MEDS: calcitrioL 0.25 MCG CAPSULE PO (09:13)
[2025-03-07] MEDS: amLODIPine Besylate 5 MG TABLET PO (09:13)
[2025-03-07] MEDS: Apixaban 2.5 MG TABLET PO ×2 (09:14→20:03)
[2025-03-07] MEDS: Clotrimazole 1 % Vaginal Cream 45 GM TUBE 1 APPL VAGINAL (09:14)
[2025-03-07] MEDS: methylPREDNISolone Sod Succ 1,000 MG in 0.9 % Sodium Chloride 50 ML 66 MG IV (09:14)
[2025-03-07] MEDS: Sodium Bicarbonate 650 MG TABLET PO ×2 (09:14→20:03)
[2025-03-07] MEDS: Sucralfate 1 GM TABLET PO ×2 (09:14→17:04)
[2025-03-07] MEDS: cefuroxime axetiL 500 MG TABLET PO ×2 (09:14→20:03)
--- NOTE | 2025-03-07 09:26 | HO.PM.IMPN ---
Subjective Subjective Date of Service: 03/07/25 Interval History: Follow up for respiratory failure, renal failure, anemia, pain Review of Systems Review of Systems: Yes all other systems are reviewed and are negative Constitutional Constitutional: Denies chills and Denies fever(s) Cardiovascular Cardiovascular: Denies chest pain, Denies palpitations, Denies dyspnea and Denies dyspnea on exertion Respiratory Respiratory: Denies dyspnea and Denies dyspnea on exertion Gastrointestinal Gastrointestinal: Denies abdominal pain and Denies vomiting Endocrine Endocrine: Denies palpitations Physical Exam Vital Signs: Vital Signs: Last Vital Signs Temp 97.3 F 03/07/25 07:35 Pulse 92 03/07/25 07:35 Resp 16 03/07/25 07:35 BP 139/90 H 03/07/25 07:35 Pulse Ox 94 03/07/25 07:35 O2 Del Method Room Air 03/07/25 07:35 O2 Flow Rate 2 02/28/25 09:40 FiO2 33 02/18/25 07:18 Oxygen Flow Rate 3 02/21/25 08:00 BMI result Body Mass Index 19.1 Appearing in no acute distress lung sounds are clear to auscultation heart regular rate rhythm, clear S1, S2 positive bowel sounds, abdomen is soft, nontender neuro patient is alert x3, no focal deficits Objective Data Active Medications Acetaminophen (Acetaminophen 325 Mg Tablet) 650 mg PO Q6H PRN PRN Reason: Pain, Mild 1-3,fever,headache Last Admin: 03/07/25 03:42 Dose: 650 mg Documented By: SHADI Comments: per pt request Amlodipine Besylate (Amlodipine Besylate 5 Mg Tablet) 5 mg PO DAILY [facility]; Protocol Last Admin: 03/07/25 09:13 Dose: 5 mg Documented By: RYAN Apixaban (Apixaban 2.5 Mg Tablet) 2.5 mg PO BID [facility] Last Admin: 03/07/25 09:14 Dose: 2.5 mg Documented By: RYAN Calcitriol (Calcitriol 0.25 Mcg Capsule) 0.25 mcg PO DAILY [facility] Last Admin: 03/07/25 09:13 Dose: 0.25 mcg Documented By: RYAN Cefuroxime Axetil (Cefuroxime Axetil 500 Mg Tablet) 500 mg PO Q12H [facility] Stop: 03/10/25 08:59 Last Admin: 03/07/25 09:14 Dose: 500 mg Documented By: RYAN Clotrimazole (Clotrimazole 1 % Vaginal Cream 45 Gm Tube) 1 appl VAGINAL DAILY [facility] Stop: 03/12/25 09:01 Last Admin: 03/07/25 09:14 Dose: 1 appl Documented By: RYAN Fluconazole (Fluconazole 50 Mg Tablet) 50 mg PO DAILY [facility] Last Admin: 03/07/25 09:14 Dose: 50 mg Documented By: RYAN Gabapentin (Gabapentin 300 Mg Capsule) 300 mg PO MoWeFr@1800 [facility] Last Admin: 03/04/25 17:49 Dose: 300 mg Documented By: CORINNE Heparin Sodium (Porcine) (Heparin Sodium,Porcine 5,000 Unit/Ml Vial) 5,000 unit INTRACATH MOWEFR@1645 [facility] Last Admin: 03/04/25 17:43 Dose: Not Given Documented By: ZEINAB Non-Admin Reason: given in dialysis Hydromorphone HCl (Hydromorphone Hcl 1 Mg/Ml Syringe) 0.75 mg IVPUSH Q4H PRN; Protocol PRN Reason: Pain, Severe (Pain Scale 7-10) Last Admin: 03/07/25 06:02 Dose: 0.75 mg Documented By: SHADI Daptomycin 340 mg/ Sodium (Chloride) 56.8 mls @ 100 mls/hr IV MoWe@1999 [facility] Last Infusion: 03/02/25 21:59 Dose: Infused Documented By: JESSICA Daptomycin 500 mg/ Sodium (Chloride) 60 mls @ 97.959 mls/hr IV Fr@1999 [facility] Last Infusion: 03/04/25 21:00 Dose: Infused Documented By: WARNER Methylprednisolone Sodium Succinate 1,000 mg/ Sodium Chloride 66 mls @ 66 mls/hr IV DAILY [facility] Stop: 03/08/25 13:24 Last Admin: 03/07/25 09:14 Dose: 66 mls/hr Documented By: RYAN Loperamide HCl (Loperamide Hcl 2 Mg Capsule) 4 mg PO Q6H PRN PRN Reason: Diarrhea Last Admin: 02/27/25 21:28 Dose: 4 mg Documented By: ROHIT Melatonin (Melatonin 3 Mg Tablet) 6 mg PO BEDTIME PRN PRN Reason: Insomnia Last Admin: 03/06/25 22:02 Dose: 6 mg Documented By: SHADI Naloxone HCl (Naloxone Hcl 0.4 Mg/Ml Vial) 0.2 mg IVPUSH Q2M PRN PRN Reason: Excessive sedation or RR < 8 Omeprazole (Omeprazole 40 Mg Capsule.Dr) 40 mg PO BID@0630,1630 [facility] Last Admin: 03/07/25 05:58 Dose: 40 mg Documented By: SHADI Oxycodone HCl (Oxycodone Hcl Immed Release 5 Mg Tablet) 10 mg PO Q6H PRN PRN Reason: Pain, Moderate(Pain Scale 4-6) Last Admin: 03/07/25 09:13 Dose: 10 mg Documented By: RYAN Prednisone (Prednisone 20 Mg Tablet) 60 mg PO DAILY [facility] On Hold: 03/05/25 13:21 Last Admin: 03/05/25 08:45 Dose: 60 mg Documented By: JOSE Sevelamer Carbonate (Sevelamer Carbonate Tablet 800 Mg Tablet) 800 mg PO TIDWM [facility] Last Admin: 03/07/25 09:13 Dose: 800 mg Documented By: RYAN Sodium Bicarbonate (Sodium Bicarbonate 650 Mg Tablet) 650 mg PO BID [facility] Last Admin: 03/07/25 09:14 Dose: 650 mg Documented By: RYAN Sodium Chloride (0.9 % Sodium Chloride Flush 3 Ml Syringe) 3 ml IVFLUSH QSHIFT [facility] Last Admin: 03/07/25 09:13 Dose: 3 ml Documented By: RYAN Sucralfate (Sucralfate 1 Gm Tablet) 1 gm PO BIDAC [facility] Last Admin: 03/07/25 09:14 Dose: 1 gm Documented By: RYAN Trazodone HCl (Trazodone Hcl 25 Mg Halftab) 25 mg PO BEDTIME PRN PRN Reason: Sleep Last Admin: 03/05/25 23:44 Dose: 25 mg Documented By: NATALYA Labs 03/06/25 09:34 03/04/25 08:54 Labs: Laboratory Results - last 24 hr 03/06/25 03/06/25 07:57 09:34 MCV 94.7 MCH 31.0 MCHC 32.7 RDW 17.3 H Plt Count 235 MPV 10.2 Immature Gran % (Auto) 4.9 H Neut % (Auto) 85.6 H Lymph % (Auto) 7.[address] [place] % (Auto) 1.7 L Eos % (Auto) 0.0 Baso % (Auto) 0.1 Lymph # (Auto) 1.6 [place] # (Auto) 0.4 Eos # (Auto) 0.0 Baso # (Auto) 0.0 Abs Immat Gran (auto) 1.04 H Absolute Neuts (auto) 18.2 H Absolute Nucleated RBC 0.000 Nucleated RBC % (auto) 0.0 ESR 78 H Absolute Retic 0.067 Percent Retic 2.4 H Immature Retic Fraction 28.1 H Retic Hgb Equivalent 31.0 Blood Type A Positive Antibody Screen NEGATIVE Crossmatch See Detail Assessment and Plan (1) Cavitary pneumonia: Status: Acute Plan 29-year-old female with underlying lupus with lupus nephritis on 10 mg prednisone daily admitted on 02/11/2025 with dyspnea and hypoxia secondary to right-sided pneumonia with polymicrobial bacteremia requiring intubation and ventilatory support. Hospital course further complicated by acute renal failure requiring initiation of hemodialysis. Followed by nephrology service with concern for possible lupus nephritis flare, started on high-dose systemic glucocorticoids. Extubated on 02/15/2025. Cavitary pneumonia has been treated for pneumonia repeat imaging now with cavitary pneumonia pulm consult > IV Solu-Medrol, blood work for ongoing infectious process pain management, consider bronchoscopy if no improvement repeat CXR with improvement Normocytic anemia due to GI bleeding Previously Seen by GI>no signs of overt bleeding, no indication for EGD at this time now with drop in H/H; s/p EGD 03/03 showing erosive gastritis, esophageal candidiasis, gave. Carafate b.i.d. x2 weeks, high dose PPI upon discharge, fluconazole (renal dosing) and outpatient follow up with GI s/p 2 units PRBC H/H down again today 7.0/21.7, 1 unit PRBC ordered Acute renal failure May be multifactorial due to KALEIGH from tubular injury due to sepsis as well as possible active lupus nephritis requiring initiation of HD Received high-dose [id number], transitioned to oral prednisone 60 mg 02/17 continue current dose of steroids upon discharge - further management per nephrology following results of kidney biopsy results Nephrology following continue HD TTS, calcitriol, renvela, sodium bicarb s/p permcath 02/25 renal biopsy 02/28/25 - follow pathology o/p dialysis in [place] following discharge Acute right jugular vein clot provoked, in location of previous IV will need 3 months of AC upon discharge vascular surgery input [facility] for [facility] uncontrolled generalized Pain continues to be difficult to control Multimodal approach for pain reg change Gabapentin dosing to once daily on dialysis days IV dilaudid discontinued multiple med trial., pt prefers oxycodone, will uptitrate to 10 mg Severe sepsis due to Polymicrobial bacteremia. Sepsis resolved Blood cultures growing E coli, Klebsiella, MRSA Seen by Cardiology, recommend treatment for infective endocarditis, repeat echo does not visualize tricuspid or pulmonic valves well s/p IV vancomycin, ceftriaxone>seen by ID rec IV dapto (6 weeks) from first negative cultures (02/20) end date 04/04 Completed 8 days of ceftriaxone will switch to 14 days po ceftin to end 03/10 Hyponatremia>Resolved Probably dilutional >improved with dialysis Elevated blood pressures. Improving Bp stable Acute respiratory failure with hypoxia due to pneumonia Status post extubation, required HFNC, now weaned to room air Tested + for parainfluenza virus. Mycoplasma IgG + and IgM negative, nonspecific per ID, no need for azithromycin Currently on daptomycin Thrombocytopenia- Resolved Likely due to acute viral illness/sepsis DIC, HLH ruled out Hematology following >no further workup recommended platelets have normalized Sinus tachycardia- intermittent, seems to be due to pain EKG reviewed by cardiology>no further work up recommended at this time Given persistent hypoxia, and tachycardia VQ scan ordered to rule out PE> possibility of pulmonary embolism can not be excluded Discussed with pulmonology, check venous Doppler ultrasound to lower extremities>negative for DVT CTA negative for PE DVT prophylaxis with SCD boots and heparin Full code Disposition. PT recommended home with PT when medically clear Quality Stroke Does the patient have a stroke diagnosis?: No VTE Prior VTE?: No VTE Risk Level:: Medical - moderate - high VTE Device Contraindication: N/A - Device Ordered VTE Drug Contraindication: Treatment Not Indicated
--- NOTE | 2025-03-07 11:02 | P.PNNPD_ITS ---
Subjective Subjective Date of Service: 03/07/25 Principal diagnosis: MRSA bacteremia This patient was seen during dialysis. Physical Exam Vital Signs: Vital Signs: Last Vital Signs Temp 97.3 F 03/07/25 07:35 Pulse 92 03/07/25 07:35 Resp 16 03/07/25 07:35 BP 139/90 H 03/07/25 07:35 Pulse Ox 94 03/07/25 07:35 O2 Del Method Room Air 03/07/25 07:35 O2 Flow Rate 2 02/28/25 09:40 FiO2 33 02/18/25 07:18 Oxygen Flow Rate 3 02/21/25 08:00 BMI result Body Mass Index 19.1 Const: General: no acute distress, awake and Physically active Resp: Effort & Inspection: normal respiratory effort and able to speak in complete sentences Auscultation: clear to auscultation bilaterally Cardio: Rate: regular rate Rhythm: regular rhythm Heart sounds: S1 normal heart sound present and S2 normal heart sound present GI: Palpation (GI): Soft to palpation and nontender Skin: Rashes: no rashes Extrem: General: No edema Assessment & Plan Assessment and plan (1) Acute renal failure (ARF): Status: Acute (2) Acute kidney injury superimposed on chronic kidney disease: Status: Acute (3) Systemic lupus erythematosus: Status: Acute Plan Initial KALEIGH likely due to tubular injury from sepsis and 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 Patient now on HD MWF. Likely has active lupus nephritis- low C4 with elevated REN titers, elevated DS DNA ab- renal biopsy is pending. Has left permcath placed left SVC on 02/25. no erythema or swelling or drainage at site. patient to start outpatient Dialysis MWF at [facility] on [facility] in [facility]. Start date moved to Friday, 03/07, time TBD. She will need daptomycin IV 350mg Friday, Friday and 500mg Fridays post dialysis through 04/04/25 for total of 6 weeks. hospital case folder [facility] before [facility]c and ensure transportation is in order for patient. 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 Recommends IV daptomycin renally dosed for 6 weeks (receiving 340mg IV M, W and 500mg IV Fridays, since 02/21/25), ceftin 500mg PO q12h for 14 days total, 02/24-03/10/25. phosphorous 3.7, continue sevelamer calcium 8.6, PTH 213, vitamin D levels low. 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 Also had perfusion scan raising suspicion for PE, CTA planne this a.m. and will get HD afterward. Antiphospholipid antibody panel: phosphatidylserine IgG is elevated, in conjunction with clot this is concerning for APS, recommend hematology consult for recommendations regarding anticoagulation recommend daily electrolyte and renal function studies recommend regular blood pressure checks, I&O monitoring avoid nephrotoxins Continue supportive care Discussed with Dr Vicente Time Spent With Patient Time: Total time managing care of this patient today ____ minutes. Procedures Date of Service Date of Service: 03/07/25
[2025-03-07 11:59] LABS: Hematocrit 28.3 % (37.0-47.0); Hemoglobin 9.5 g/dl (12.0-16.0); Mean Corpuscular HGB Conc 33.6 g/dl (31.0-35.0); Mean Corpuscular Hemoglobin 30.7 pg (27.0-33.0); Mean Corpuscular Volume 91.6 fL (80.0-98.0); Mean Platelet Volume 9.9 fL (9.4-12.3); NRBC Pct Auto 0.1 /100WBC (0.0-0.2); Platelet Count 249 X10*3/uL (160-400); Red Blood Count 3.09 X10*6/uL (4.20-5.50); Red Cell Distribution Width 17.2 % (11.0-16.0); White Blood Count 23.1 X10*3/uL (4.8-10.8)
[2025-03-07 12:13] LABS: Anion Gap 17 (12-20); Blood Urea Nitrogen 90 mg/dL (9-16); Calcium 8.6 mg/dL (8.4-10.2); Carbon Dioxide 21 mmol/L (22-29); Chloride 102 mmol/L (96-108); Creatinine Clr Calc Pharmacy 28.6; Estimated Glomerular Filt Rate 22; Glucose Random 125 mg/dL (60-115); Phosphorus 5.3 mg/dL (2.7-4.5); Potassium 4.6 mmol/L (3.3-5.1); Sodium 135 mmol/L (135-145)
[2025-03-07 15:20] VITALS: BP 152/93; PULSE 91; RESP 16; O2SAT 100
[2025-03-07] MEDS: diphenhydrAMINE HCL 25 MG CAPSULE PO (15:40)
[2025-03-07 17:06] VITALS: TEMP 36.5
--- NOTE | 2025-03-07 17:33 | PC.NURSE ---
Daptomycin and gabapentin held per provider as dialysis postponed until 03/08.
[2025-03-07 19:43] VITALS: BP 180/90; PULSE 91; RESP 18; TEMP 36.7; O2SAT 99
[2025-03-07 23:21] VITALS: BP 170/90; PULSE 89; RESP 18; TEMP 36.6; O2SAT 99
[2025-03-08] MEDS: HYDROmorphone HCl 1 MG/ML SYRINGE 0.75 MG IVPUSH ×4 (03:29→16:02)
[2025-03-08 03:43] VITALS: BP 180/90; PULSE 85; RESP 20; TEMP 36.6; O2SAT 100
[2025-03-08] MEDS: Omeprazole 40 MG CAPSULE.DR PO (05:42)
[2025-03-08 07:23] VITALS: BP 137/80; PULSE 81; RESP 16; TEMP 36.7; O2SAT 95
[2025-03-08] MEDS: calcitrioL 0.25 MCG CAPSULE PO (07:36)
[2025-03-08] MEDS: amLODIPine Besylate 5 MG TABLET PO (07:37)
[2025-03-08] MEDS: cefuroxime axetiL 500 MG TABLET PO (07:37)
[2025-03-08] MEDS: Apixaban 2.5 MG TABLET PO (07:38)
[2025-03-08] MEDS: Sucralfate 1 GM TABLET PO (07:38)
[2025-03-08] MEDS: Sodium Bicarbonate 650 MG TABLET PO (07:38)
[2025-03-08] MEDS: Sevelamer Carbonate Tablet 800 MG TABLET PO ×2 (07:38→11:49)
[2025-03-08] MEDS: 0.9 % Sodium Chloride Flush 3 ML SYRINGE IVFLUSH ×2 (07:39→16:00)
--- NOTE | 2025-03-08 08:20 | W.PM.DNNEP ---
Subjective Subjective Date of Service: 03/08/25 Principal diagnosis: MRSA bacteremia This patient was seen during dialysis. Interval history: seen and examined this morning following for renal failure now on HD patient states she is doing ok this morning. Reports voiding 2x daily, reports about a cup or so each time Continued widespread pain, no other new changes. Per hospital medicine plan for discharge today Physical Exam Vital Signs: Vital Signs: Last Vital Signs Temp 98.1 F 03/08/25 07:23 Pulse 81 03/08/25 07:23 Resp 16 03/08/25 07:23 BP 137/80 03/08/25 07:23 Pulse Ox 95 03/08/25 07:23 O2 Del Method Room Air 03/08/25 07:23 O2 Flow Rate 2 02/28/25 09:40 FiO2 33 02/18/25 07:18 Oxygen Flow Rate 3 02/21/25 08:00 BMI result Body Mass Index 19.1 Const: General: no acute distress, alert and awake Resp: Effort & Inspection: normal respiratory effort Auscultation: clear to auscultation bilaterally Cardio: Rate: regular rate Rhythm: regular rhythm Heart sounds: S1 normal heart sound present and S2 normal heart sound present GI: Palpation (GI): Soft to palpation and nontender Skin: Rashes: no rashes Extrem: General: No edema Assessment & Plan Assessment and plan (1) Acute renal failure (ARF): Status: Acute (2) Systemic lupus erythematosus: Status: Acute Plan Initial KALEIGH likely due to tubular injury from sepsis and 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 Patient now on HD MWF (HD moved to today due to scheduling constraints- will continue MWF as outpatient). Likely has active lupus nephritis- low C4 with elevated REN titers, elevated DS DNA ab- renal biopsy is pending. Continue 60mg prednisone daily- additional management pending renal biopsy results. patient has been making more urine- reports twice daily with fair amount of urine at each void. Plan to get creatinine clearance as outpatient Has left permcath placed left SVC on 02/25. no erythema or swelling or drainage at site. per ID has tricuspid valve endocarditis with MRSA, e coli bacteremia from urine source- both bacteremias have resolved. Recommends IV daptomycin renally dosed for 6 weeks (receiving 340mg IV and 500mg IV Fridays, since 02/21/25), ceftin 500mg PO q12h for 14 days total, 02/24-03/10/25. phosphorous 5.3, continue sevelamer- ensure compliance with meals. Low phos diet. calcium 8.6, PTH 213, vitamin D levels low. 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 Now on eliquis for three months for provoked DVT. Also had perfusion scan raising suspicion for PE, CTA negative for PE. Antiphospholipid antibody panel: phosphatidylserine IgG is elevated, per hematology not relevant for lupus anticoagulant syndrome. patient to start outpatient Dialysis MWF at [facility] on [facility] in [facility] (#[phone]). Start date 03/09/25 time 10:55, arrive at 10:10 a.m. She will need daptomycin IV 350mg Friday, Friday and 500mg Fridays post dialysis through 04/04/25 for total of 6 weeks. hospital case coordinator [facility] and ensure transportation is in order for patient. [facility] Front Desk RepresentativeJorge: [phone]. Discussed with [address] Vicente. Time Spent With Patient Time: Total time managing care of this patient today ____ minutes. Procedures Date of Service Date of Service: 03/08/25
[2025-03-08] MEDS: oxyCODONE HCl Immed Release 5 MG TABLET 10 MG PO (09:57)
[2025-03-08] MEDS: Clotrimazole 1 % Vaginal Cream 45 GM TUBE 1 APPL VAGINAL (11:46)
[2025-03-08] MEDS: methylPREDNISolone Sod Succ 1,000 MG in 0.9 % Sodium Chloride 50 ML 66 MG IV (11:47)
[2025-03-08 11:58] VITALS: BP 140/80; PULSE 99; RESP 16; TEMP 36.5; O2SAT 100
--- NOTE | 2025-03-08 13:27 | PM.DS ---
DS: Providers Provider Date of Service: 03/08/25 Date of admission: 02/11/25 19:41 Date of discharge: 03/08/25 Primary care physician: Vic Pompa DO Consults: 02/16/25 16:03 Consult to Infectious Diseases Routine Consulting Provider: [facility] Reason for consultation: MRSA Bacteremia, Echo ? Endocarditis 02/17/25 07:55 Consult to Cardiology Routine Consulting Provider: [facility] Reason for consultation: possible IE ? LIV Has provider been notified: No 02/17/25 11:57 Consult to Gastroenterology Routine Consulting Provider: Niecy Jaquez Reason for consultation: anemia, heme + stools Has provider been notified: No 02/17/25 16:20 Consult to Hematology / Oncology Routine Consulting Provider: [facility] Oncology/Hematology Reason for consultation: anemia, thrombocytopenia ?[facility] Has provider been notified: No 02/18/25 17:07 Consult to Pulmonology Routine Consulting Provider: [facility] Pulmonology Services Reason for consultation: worsening pneumonia, persistent hypoxia; possible PE Has provider been notified: No 02/18/25 17:24 Consult to Vascular Surgery Routine Consulting Provider: [facility] Vascular Services Reason for consultation: PE not good candidate for AC; ?filter Has provider been notified: No 02/28/25 15:05 Consult to Gastroenterology Routine Consulting Provider: Niecy Jaquez Reason for consultation: anemia 03/01/25 04:16 Consult to Vascular Surgery Routine Consulting Provider: [facility] Vascular Services Reason for consultation: jugular dvt Has provider been notified: No 03/02/25 07:37 Consult to Psychiatry Routine Consulting Provider: [facility] Psych Covering Reason for consultation: anxiety Has provider been notified: No 03/04/25 12:25 Consult to Pulmonology Routine Consulting Provider: [facility] Pulmonology Services Reason for consultation: cavitary lung lesion Has provider been notified: No DS: Diagnosis Discharge Diagnosis (1) Acute renal failure (ARF): Status: Acute (2) Systemic lupus erythematosus: Status: Acute DS: Summary Hospital Course Hospital Course: History and physical as per admitting provider. The patient is a 29-year-old female with a past medical history of lupus complicated by lupus nephritis (on 10mg prednisone), history of pericardial effusion, hypertension, anemia, fibromyalgia, anxiety and depression who presented to the emergency department with complaints of shortness of breath.? Patient reports 2 days of dyspnea, pleuritic chest pain, cough, fevers, poor p.o. intake, nausea, vomiting and diarrhea.??In the emergency department temperature 96.6 degrees, tachycardic to 120s, tachypneic to 40s, normotensive, requiring initiation of high-flow nasal cannula. Laboratory data was significant for WBC of 15, hemoglobin 7, hematocrit 19.5, potassium 6.1, serum bicarb 10, anion gap 28, BUN over 125, creatinine 11.96, random glucose 58, lactic 2.6, AST 111, ALT 42, alk phos 146, lactate dehydrogenase 715, CK 583, CRP 36.8, procalcitonin > 100 Venous gas:? 7.34/17/91/9 , base excess -14.3 IMAGING: CHEST CT:? Consistent with right lung multifocal pneumonia, ABDOMINAL CT:? Hepatomegaly, no other acute findings ED COURSE: Patient received 2 L bolus, stress dose hydrocortisone, ceftriaxone 2 g, doxycycline 100 mg, calcium gluconate 2g, Lokelma 5 g, and 1 amp of sodium bicarb 29-year-old female with underlying lupus with lupus nephritis on 10 mg prednisone daily admitted on 02/11/2025 with dyspnea and hypoxia secondary to right-sided pneumonia with polymicrobial bacteremia requiring intubation and ventilatory support. Hospital course further complicated by acute renal failure requiring initiation of hemodialysis. Followed by nephrology service with concern for possible lupus nephritis flare, started on high-dose systemic glucocorticoids. Extubated on 02/15/2025. 25 day hospitalization Acute respiratory failure with hypoxia due to pneumonia. Admitted to the ICU initially and intubated. Extubated on 02/15/2025 and treated with high-flow nasal cannula. Weaned off and transferred to medical floor. Tested + for parainfluenza virus. Mycoplasma IgG + and IgM negative, nonspecific per ID, no need for azithromycin, Currently on daptomycin Cavitary pneumonia noted on CT on 03/04/25, pulm consult > IV Solu-Medrol 1 gm x 3 days, no bronchoscopy required as repeat CXR with improvement Normocytic anemia due to GI bleeding, Previously Seen by GI>no signs of overt bleeding, no indication for EGD initially. then she had a drop in HH, s/p EGD 03/03 showing erosive gastritis, esophageal candidiasis, gave. Carafate b.i.d. x2 weeks, high dose PPI upon discharge, fluconazole (renal dosing) and outpatient follow up with GI. s/p 3 units PRBC during hospital admission. Acute renal failure, May be multifactorial due to KALEIGH from tubular injury due to sepsis as well as possible active lupus nephritis requiring initiation of HD s/p permcath 02/25, Received high-dose steroids x3days, transitioned to oral prednisone 60 mg 02/17 then back to high dose steroids for 3 more days. Plan is to continue 60 mg of prednisone daily and nephro will f/u o/p. She is set up for o/p dialysis outpatient. results of kidney biopsy still pending. continue HD TTS, calcitriol, renvela, sodium bicarb Acute right jugular vein clot, provoked, in location of previous IV, will need 3 months of AC upon discharge, CTA negative for PE, transitioned back to Eliquis Acute uncontrolled generalized Pain. Difficult pain control during hospitalization treated with steroids, started on gabapentin, IV Dilaudid, oxycodone. The patient will be discharged with oral Dilaudid and we will need to follow up with primary care provider for refills. Severe sepsis due to Polymicrobial bacteremia. Sepsis resolved. Blood cultures growing E coli, Klebsiella, MRSA. Seen by Cardiology, recommend treatment for infective endocarditis, repeat echo does not visualize tricuspid or pulmonic valves well. s/p IV vancomycin, ceftriaxone>seen by ID rec IV dapto (6 weeks) from first negative cultures (02/20) end date 04/04. Completed 8 days of ceftriaxone will switch to 14 days po ceftin to end 03/10 Hyponatremia. likely dilutional. Improved with dialysis Elevated blood pressures. Has been up and down during hospitalization. Started on amlodipine 5 mg daily. Stable at this point Thrombocytopenia- Resolved. Likely due to acute viral illness/sepsis . DIC, HLH ruled out. Hematology following >no further workup recommended. platelets have normalized Sinus tachycardia- intermittent, seems to be due to pain . EKG reviewed by cardiology>no further work up recommended at this time . Given hypoxia and tachycardia VQ scan ordered to rule out PE> possibility of pulmonary embolism can not be excluded, Discussed with pulmonology, venous Doppler ultrasound to lower extremities>negative for DVT. CTA negative for PE Time Attestation Discharge Coordination Time (in mins): 65 Quality: Safe Use of Opioids Does Pt have an Active Cancer Diagnosis on the Problem List?: No Quality: Stroke Does the patient have a stroke diagnosis?: No Physical Exam Vital Signs: Vital Signs: Last Vital Signs Temp 97.7 F 03/08/25 11:58 Pulse 99 03/08/25 11:58 Resp 16 03/08/25 11:58 BP 140/80 H 03/08/25 11:58 Pulse Ox 100 03/08/25 11:58 O2 Del Method Room Air 03/08/25 11:58 O2 Flow Rate 2 02/28/25 09:40 FiO2 33 02/18/25 07:18 Oxygen Flow Rate 3 02/21/25 08:00 BMI result Body Mass Index 19.1 Appearing in no acute distress head is normocephalic atraumatic eyes pupils are PERRLA sclera is anicteric mouth throat mucous membranes are intact and moist neck is supple no lymphadenopathy, no JVD noted lung sounds are clear to auscultation heart regular rate rhythm, clear S1, S2 positive bowel sounds, abdomen is soft, nontender neuro patient is alert x3, no focal deficits DS: Data Data Completed and Pending Completed studies during hospitalization [Text1]: Pending at discharge 02/28/25 09:53 Surgical Path [Surgical] [PTH] Routine 03/03/25 13:37 Surgical [PTH] Routine Procedures Excision of Right Kidney, Percutaneous Approach, Diagnostic (03/19/22) Transfusion of Nonautologous Red Blood Cells into Peripheral Vein, Percutaneous Approach (04/01/22) Discharge Plan Discharge Anticipated Discharge Date/Time: 03/08/25 07:21 Patient Disposition: Home Health Service Discharge Diagnosis: Acute renal failure Acute right jugular vein clot Severe sepsis secondary to polymicrobial bacteremia, E coli, Klebsiella, MRSA Hyponatremia Acute respiratory failure secondary to pneumonia/cavitary pneumonia Thrombocytopenia Sinus tachycardia Normocytic anemia due to GI bleeding Referrals: [facility] [Outside] - 1 Week Vic Pompa DO [Primary Care Provider, Internal Medicine] - 1 Week Discharge Medications: New amlodipine 5 mg Tablet 5 mg PO DAILY Qty: 30 0RF Protocol: Hold for SBP< HOLD for SBP < : 90 gabapentin 300 mg Capsule 300 mg PO MoWeFr@1800 Qty: 12 0RF cefuroxime axetil 500 mg Tablet 500 mg PO Q12H Qty: 4 0RF sevelamer carbonate 800 mg Tablet 800 mg PO TIDWM Qty: 90 0RF Eliquis 2.5 mg Tablet 2.5 mg PO BID Qty: 60 0RF sucralfate 1 gram Tablet 1 g PO BIDAC Qty: 60 0RF omeprazole 40 mg Capsule,Delayed Release(Dr/Ec) 40 mg PO BID@0630,1630 Qty: 60 0RF sodium bicarbonate 650 mg Tablet 650 mg PO BID Qty: 60 0RF daptomycin 350 mg recon soln 342 mg IV Q24H Rx Instructions: administer over 30 mins prednisone 10 mg tablet 60 mg PO DIRECTED Qty: 180 0RF Rx Instructions: see taper instructions hydromorphone [Dilaudid] 2 mg tablet 2 mg PO Q6H PRN (Reason: pain) Qty: 20 0RF Rx Instructions: Partial Fill upon patient request. clotrimazole 1 % Cream 1 appl vaginal DAILY Qty: 45 0RF Rx Instructions: four more days of treatment for total of 7 days calcitriol 0.25 mcg Capsule 0.25 mcg PO DAILY Qty: 30 0RF Continued labetalol 100 mg Tablet 100 mg PO TID Qty: 90 0RF Protocol: Hold for SBP/HR < HOLD for SBP < : 90 HOLD for HR < : 60 Discontinued prednisone 10 mg tablet 10 mg PO DAILY Qty: 30 1RF Discharge Orders: Discharge Order (Routine); Ordered 03/08/25 Ordered By: Magnolia Garcia Diet: Advance to usual diet Activity on Discharge: As tolerated Stand Alone Forms: Patient Portal Discharge page Print Language: Citizen Of [place] Care Plan Goals: Cefuroxime end date 03/10/2025 Daptomycin dosing 340 mg every Friday and Friday end date 04/04/2025 Daptomycin 500 mg every Friday end date 04/04/2025 Take prednisone 60 mg daily and follow up with the Nephrology for management of this medication Health Concerns: Acute renal failure Acute right jugular vein clot Severe sepsis secondary to polymicrobial bacteremia, E coli, Klebsiella, MRSA Hyponatremia Acute respiratory failure secondary to pneumonia/cavitary pneumonia Thrombocytopenia Sinus tachycardia Normocytic anemia due to GI bleeding Plan of Treatment: Follow up with primary care provider as needed Take all medications as prescribed Assessment: See discharge summary
--- NOTE | 2025-03-08 14:16 | MHC.CM.PN ---
IMM 03/08/25 Patient is discharged to home today. [facility] will provide Home services. Discharge info has been sent to the agency. She will start HD @ [facility]. DC info has been sent to the HD center. Patient will meet with a staff member to set up transportation tomorrow, for next week. DP Home with [facility] and [facility] HD. A family member will provide transportation home.
[2025-03-08] MEDS: Gabapentin 300 MG CAPSULE PO (16:00)
--- NOTE | 2025-03-08 16:01 | PC.NURSE ---
Dialysis postponed to today. Gabapentin and daptomycin ordered on dialysis days, post dialysis. Ordered 1x today prior to discharge.
[2025-03-08 16:02] VITALS: BP 132/76; PULSE 64; RESP 12; TEMP 37; O2SAT 94
--- NOTE | 2025-03-08 16:03 | W.MHC.F2F ---
Service Date Service Date: 03/08/25 Encounter Date of encounter: 03/08/25 Reasons for Services Signs and symptoms assessed: End-stage renal disease on dialysis Anemia Bacteremia Reason for senior living: CV/CP assess and/or care Reason for physical therapy: home safety and mobility Homebound: Leaving the home is medically contraindicated at this time without the asist of a device and/or another person due th the listed conditions above and below. Reason homebound: unsteady gait / fall risk and weakness related to hospital stay Certification: Based on the above findings, I certify that this patient is confined to the home and needs intermittent senior living care, physical therapy and/or speech therapy, or continues to need occupational therapy. The patient is under my care, and I have initiated the establishment of the plan of care. The patient will be followed by a physician who will periodically review the plan of care. Time Spent With Patient Time: Total time managing care of this patient today ____ minutes.
[2025-03-08 17:45] LABS: Creatinine, mg/dL 50.23
[2025-03-08 17:49] LABS: Fungitell 33 pg/mL (<60); Fungitell 1,3 beta glucan Negative
[2025-03-08 18:44] LABS: Creatinine, 24Hr Urine 0.4 G/Day (1.0-2.0); Total Volume 24 Hour Urine 800 mL
[2025-03-08 19:18] LABS: Creatinine (CrCl) 2.56 mg/dL (0.5-1.4); Creatinine Clearance 10.9 mL/min (85-125)
[2025-03-08 22:29] LABS: Myeloperoxidase Antibody <1.0 AI; Proteinase 3 PR3 Antibodies <1.0 AI
[2025-03-09 17:39] LABS: Aspergillus Antigen Not Detected (Not Detected); Index Value 0.08 (<0.50)
[2025-03-10 03:38] LABS: CRP High Sensitivity 9.3 mg/L
[2025-03-10 11:59] LABS: IgA 158 mg/dL (47-310); IgG 1307 mg/dL (600-1640); IgM 13 mg/dL (50-300)
== END 2025-03-08 17:07 | disposition home health service (06) | DRG 871 ==
LOC: HO.ED 19:31 → HO.EDOVER 19:45 → HO.ICU 19:50 → HO.IMC 02-16 15:56 → HO.S3 03-01 13:07
PROVIDERS: Hospitalist; Internal Medicine; Internal Medicine Critical Care Medicine; Internal Medicine Gastroenterology; Internal Medicine Nephrology; Internal Medicine Pulmonary Disease; Nurse Practitioner Family; Physician Assistant Medical; Radiology Diagnostic Radiology; Student in an Organized Health Care Education/Training Program; Admitting Provider Registered Nurse Community Health; Emergency Provider Emergency Medicine; PCP Student in an Organized Health Care Education/Training Program; Visit Provider Nurse Practitioner Acute Care
PROC: 0JH63XZ Insertion of Tunneled Vascular Access Device into Chest Subcutaneous Tissue and Fascia, Percutaneous Approach (ICD-10-PCS; principal; 2025-02-25 10:30)
PROC: 0TB03ZX Excision of Right Kidney, Percutaneous Approach, Diagnostic (ICD-10-PCS; principal; 2025-02-28 09:00)
PROC: 0DJ08ZZ Inspection of Upper Intestinal Tract, Via Natural or Artificial Opening Endoscopic (ICD-10-PCS; CPT 43235; principal; 2025-03-03 14:50)
DX: A41.9 Sepsis, unspecified organism (principal); G93.41 Metabolic encephalopathy; J18.9 Pneumonia, unspecified organism; J96.01 Acute respiratory failure with hypoxia; I33.0 Acute and subacute infective endocarditis; K29.71 Gastritis, unspecified, with bleeding; K31.811 Angiodysplasia of stomach and duodenum with bleeding; E87.1 Hypo-osmolality and hyponatremia; N17.9 Acute kidney failure, unspecified; I82.C11 Acute embolism and thrombosis of right internal jugular vein; T82.868A Thrombosis due to vascular prosthetic devices, implants and grafts, initial encounter; B37.81 Candidal esophagitis; I10 Essential (primary) hypertension; B96.20 Unspecified Escherichia coli [E. coli] as the cause of diseases classified elsewhere; K75.4 Autoimmune hepatitis; E87.6 Hypokalemia; D69.59 Other secondary thrombocytopenia; M32.13 Lung involvement in systemic lupus erythematosus; D50.0 Iron deficiency anemia secondary to blood loss (chronic); D63.8 Anemia in other chronic diseases classified elsewhere; J98.4 Other disorders of lung; B97.89 Other viral agents as the cause of diseases classified elsewhere; T38.0X5A Adverse effect of glucocorticoids and synthetic analogues, initial encounter; B95.62 Methicillin resistant Staphylococcus aureus infection as the cause of diseases classified elsewhere; M32.14 Glomerular disease in systemic lupus erythematosus; E87.5 Hyperkalemia; R65.20 Severe sepsis without septic shock; Z20.822 Contact with and (suspected) exposure to COVID-19; Z79.899 Other long term (current) drug therapy
CPT/HCPCS: 0241U; 36415; 36558; 50200; 71045; 71250; 71275; 74176; 76705; 76937; 77012; 78580; 80048; 80053; 80076; 80202; 80307; 81001; 82040; 82272; 82306; 82550; 82575; 82728; 82784; 82803; 82947; 83010; 83516; 83605; 83615; 83690; 83735; 83880; 83970; 84100; 84132; 84145; 84443; 84478; 84484; 84702; 85007; 85014; 85018; 85025; 85027; 85045; 85379; 85384; 85610; 85652; 85730; 86021; 86038; 86039; 86140; 86141; 86146; 86147; 86160; 86162; 86225; 86704; 86706; 86738; 86850; 86900; 86901; 86923; 87040; 87077; 87147; 87186; 87205; 87305; 87340; 87389; 87449; 87493; 87633; 87640; 87641; 87899; 88300; 88305; 88313; 88342; 88346; 88348; 88350; 90999; 93005; 93306; 93970; 94002; 94003; 94640; 94799; 97116; 97163; 99152; 99285; A9540; C1750; C1769; C1889; J0131; J0456; J0613; J0696; J0878; J1171; J1200; J1271; J1644; J1720; J1920; J2003; J2250; J2310; J2470; J2543; J2704; J2919; J3010; J3360; J3370; J3371; J7120; P9016; P9047; Q9967

== ENCOUNTER → 2025-02-11 16:46 | Outpatient (BNV) | payer MEDICARE, MEDICAID, SELFPAY | PROVIDERS: Admitting Provider Registered Nurse Community Health; Emergency Provider Emergency Medicine; PCP Student in an Organized Health Care Education/Training Program; Visit Provider Internal Medicine Cardiovascular Disease | DX: R00.0 Tachycardia, unspecified (principal) | CPT/HCPCS: 93010 ==

== ENCOUNTER → 2025-02-11 16:47 | Outpatient (BNV) | payer MEDICARE, MEDICAID, SELFPAY | PROVIDERS: Emergency Provider Emergency Medicine; PCP Student in an Organized Health Care Education/Training Program; Visit Provider Nuclear Medicine | DX: R16.0 Hepatomegaly, not elsewhere classified (principal); J18.1 Lobar pneumonia, unspecified organism | CPT/HCPCS: 71045; 71250; 74176 ==

== ENCOUNTER 2025-02-11 19:41 | Outpatient (BNV) | payer MEDICARE, MEDICAID, SELFPAY | END 2025-02-28 09:00 | PROVIDERS: Admitting Provider Registered Nurse Community Health; Emergency Provider Emergency Medicine; PCP Student in an Organized Health Care Education/Training Program; Visit Provider Radiology Diagnostic Radiology | DX: N17.9 Acute kidney failure, unspecified (principal) | CPT/HCPCS: 50200; 77012; 99152 ==

== ENCOUNTER 2025-02-11 19:41 | Outpatient (BNV) | payer MEDICARE, MEDICAID, SELFPAY | END 2025-02-14 07:00 | PROVIDERS: Admitting Provider Registered Nurse Community Health; Emergency Provider Emergency Medicine; PCP Student in an Organized Health Care Education/Training Program; Visit Provider Internal Medicine | DX: I34.0 Nonrheumatic mitral (valve) insufficiency (principal); I36.1 Nonrheumatic tricuspid (valve) insufficiency; I36.8 Other nonrheumatic tricuspid valve disorders | CPT/HCPCS: 93306 ==

== ENCOUNTER 2025-02-11 19:41 | Outpatient (BNV) | payer MEDICARE, MEDICAID, SELFPAY | END 2025-02-18 13:53 | PROVIDERS: Admitting Provider Registered Nurse Community Health; Emergency Provider Emergency Medicine; PCP Student in an Organized Health Care Education/Training Program; Visit Provider Radiology Diagnostic Radiology | DX: R91.8 Other nonspecific abnormal finding of lung field (principal) | CPT/HCPCS: 71045 ==

== ENCOUNTER 2025-02-11 19:41 | Outpatient (BNV) | payer MEDICARE, MEDICAID, SELFPAY | END 2025-02-22 07:00 | PROVIDERS: Admitting Provider Registered Nurse Community Health; Emergency Provider Emergency Medicine; PCP Student in an Organized Health Care Education/Training Program; Visit Provider Internal Medicine Cardiovascular Disease | DX: R94.31 Abnormal electrocardiogram [ECG] [EKG] (principal) | CPT/HCPCS: 93306 ==

== ENCOUNTER 2025-02-11 19:41 | Outpatient (BNV) | payer MEDICARE, MEDICAID, SELFPAY | END 2025-02-17 11:30 | PROVIDERS: Admitting Provider Registered Nurse Community Health; Emergency Provider Emergency Medicine; PCP Student in an Organized Health Care Education/Training Program; Visit Provider Internal Medicine | DX: R00.0 Tachycardia, unspecified (principal) | CPT/HCPCS: 93010 ==

== ENCOUNTER 2025-02-11 19:41 | Outpatient (BNV) | payer MEDICARE, MEDICAID, SELFPAY | END 2025-02-12 12:34 | PROVIDERS: Admitting Provider Registered Nurse Community Health; Emergency Provider Emergency Medicine; PCP Student in an Organized Health Care Education/Training Program; Visit Provider Radiology Diagnostic Radiology | DX: J98.11 Atelectasis (principal) | CPT/HCPCS: 71045 ==

== ENCOUNTER 2025-02-11 19:41 | Outpatient (BNV) | payer MEDICARE, MEDICAID, SELFPAY | END 2025-02-21 20:25 | PROVIDERS: Admitting Provider Registered Nurse Community Health; Emergency Provider Emergency Medicine; PCP Student in an Organized Health Care Education/Training Program; Visit Provider Internal Medicine Cardiovascular Disease | DX: R00.0 Tachycardia, unspecified (principal) | CPT/HCPCS: 93010 ==

== ENCOUNTER 2025-02-11 19:41 | Outpatient (BNV) | payer MEDICARE, MEDICAID, SELFPAY | END 2025-02-21 19:21 | PROVIDERS: Admitting Provider Registered Nurse Community Health; Emergency Provider Emergency Medicine; PCP Student in an Organized Health Care Education/Training Program; Visit Provider Radiology Diagnostic Radiology | DX: R05.3 Chronic cough (principal) | CPT/HCPCS: 71045 ==

== ENCOUNTER 2025-02-11 19:41 | Outpatient (BNV) | payer MEDICARE, MEDICAID, SELFPAY | END 2025-02-17 17:40 | PROVIDERS: Admitting Provider Registered Nurse Community Health; Emergency Provider Emergency Medicine; PCP Student in an Organized Health Care Education/Training Program; Visit Provider Nuclear Medicine | DX: R16.0 Hepatomegaly, not elsewhere classified (principal) | CPT/HCPCS: 76705 ==

== ENCOUNTER 2025-02-11 19:41 | Outpatient (BNV) | payer MEDICARE, MEDICAID, SELFPAY | END 2025-02-16 17:33 | PROVIDERS: Admitting Provider Registered Nurse Community Health; Emergency Provider Emergency Medicine; PCP Student in an Organized Health Care Education/Training Program; Visit Provider Radiology Diagnostic Radiology | DX: J18.9 Pneumonia, unspecified organism (principal) | CPT/HCPCS: 71045 ==

== ENCOUNTER 2025-02-11 19:41 | Outpatient (BNV) | payer MEDICARE, MEDICAID, SELFPAY | END 2025-02-25 09:23 | PROVIDERS: Admitting Provider Registered Nurse Community Health; Emergency Provider Emergency Medicine; PCP Student in an Organized Health Care Education/Training Program; Visit Provider Radiology Diagnostic Radiology | DX: N17.9 Acute kidney failure, unspecified (principal); Z45.2 Encounter for adjustment and management of vascular access device | CPT/HCPCS: 36558; 76937 ==

== ENCOUNTER 2025-02-11 19:41 | Outpatient (BNV) | payer MEDICARE, MEDICAID, SELFPAY | END 2025-03-07 07:26 | PROVIDERS: Admitting Provider Registered Nurse Community Health; Emergency Provider Emergency Medicine; PCP Student in an Organized Health Care Education/Training Program; Visit Provider Radiology Diagnostic Radiology | DX: R68.89 Other general symptoms and signs (principal); J84.89 Other specified interstitial pulmonary diseases; J98.11 Atelectasis | CPT/HCPCS: 71045 ==

== ENCOUNTER 2025-02-11 19:41 | Outpatient (BNV) | payer MEDICARE, MEDICAID, SELFPAY | END 2025-02-19 11:17 | PROVIDERS: Admitting Provider Registered Nurse Community Health; Emergency Provider Emergency Medicine; PCP Student in an Organized Health Care Education/Training Program; Visit Provider Radiology Diagnostic Radiology | DX: R79.1 Abnormal coagulation profile (principal) | CPT/HCPCS: 93970 ==

== ENCOUNTER 2025-02-11 19:41 | Outpatient (BNV) | payer MEDICARE, MEDICAID, SELFPAY | END 2025-03-04 07:00 | PROVIDERS: Admitting Provider Registered Nurse Community Health; Emergency Provider Emergency Medicine; PCP Student in an Organized Health Care Education/Training Program; Visit Provider Radiology Diagnostic Radiology | DX: J18.9 Pneumonia, unspecified organism (principal); J47.9 Bronchiectasis, uncomplicated | CPT/HCPCS: 71275 ==

== ENCOUNTER → 2025-02-11 19:41 | Outpatient (BNV) | payer MEDICARE, MEDICAID, SELFPAY | PROVIDERS: Admitting Provider Registered Nurse Community Health; Emergency Provider Emergency Medicine; PCP Student in an Organized Health Care Education/Training Program; Visit Provider Physician Assistant Surgical | DX: I26.99 Other pulmonary embolism without acute cor pulmonale (principal) | CPT/HCPCS: 99222 ==

== ENCOUNTER → 2025-02-11 19:41 | Outpatient (BNV) | payer MEDICARE, MEDICAID, SELFPAY | PROVIDERS: Admitting Provider Registered Nurse Community Health; Emergency Provider Emergency Medicine; PCP Student in an Organized Health Care Education/Training Program; Visit Provider Internal Medicine | DX: J96.01 Acute respiratory failure with hypoxia (principal); R78.81 Bacteremia; J18.9 Pneumonia, unspecified organism; I33.0 Acute and subacute infective endocarditis | CPT/HCPCS: 99232 ==

== ENCOUNTER → 2025-02-11 19:41 | Outpatient (BNV) | payer MEDICARE, MEDICAID, SELFPAY | PROVIDERS: Admitting Provider Registered Nurse Community Health; Emergency Provider Emergency Medicine; PCP Student in an Organized Health Care Education/Training Program; Visit Provider Registered Nurse Community Health | DX: M32.14 Glomerular disease in systemic lupus erythematosus (principal); D64.9 Anemia, unspecified; J18.9 Pneumonia, unspecified organism | CPT/HCPCS: 31500; 36556; 99291 ==

== ENCOUNTER → 2025-02-11 19:41 | Outpatient (BNV) | payer MEDICARE, MEDICAID, SELFPAY | PROVIDERS: Admitting Provider Registered Nurse Community Health; Emergency Provider Emergency Medicine; PCP Student in an Organized Health Care Education/Training Program; Visit Provider Internal Medicine Pulmonary Disease | DX: J96.01 Acute respiratory failure with hypoxia (principal); M32.14 Glomerular disease in systemic lupus erythematosus; N17.9 Acute kidney failure, unspecified | CPT/HCPCS: 99291 ==

== ENCOUNTER → 2025-02-11 19:41 | Outpatient (BNV) | payer MEDICARE, MEDICAID, SELFPAY | PROVIDERS: Admitting Provider Registered Nurse Community Health; Emergency Provider Emergency Medicine; PCP Student in an Organized Health Care Education/Training Program; Visit Provider Internal Medicine | DX: D61.818 Other pancytopenia (principal) | CPT/HCPCS: 99222 ==

== ENCOUNTER → 2025-02-11 19:41 | Outpatient (BNV) | payer MEDICARE, MEDICAID, SELFPAY | PROVIDERS: Admitting Provider Registered Nurse Community Health; Emergency Provider Emergency Medicine; PCP Student in an Organized Health Care Education/Training Program; Visit Provider Internal Medicine | DX: D64.9 Anemia, unspecified (principal); A41.9 Sepsis, unspecified organism; R65.20 Severe sepsis without septic shock; N17.9 Acute kidney failure, unspecified; D75.89 Other specified diseases of blood and blood-forming organs | CPT/HCPCS: 99232 ==

== ENCOUNTER → 2025-02-11 19:41 | Outpatient (BNV) | payer MEDICARE, MEDICAID, SELFPAY | PROVIDERS: Admitting Provider Registered Nurse Community Health; Emergency Provider Emergency Medicine; PCP Student in an Organized Health Care Education/Training Program; Visit Provider Nurse Practitioner Psychiatric/Mental Health | DX: F33.1 Major depressive disorder, recurrent, moderate (principal); F41.9 Anxiety disorder, unspecified | CPT/HCPCS: 99232 ==

== ENCOUNTER → 2025-02-11 19:41 | Outpatient (BNV) | payer MEDICARE, MEDICAID, SELFPAY | PROVIDERS: Admitting Provider Registered Nurse Community Health; Emergency Provider Emergency Medicine; PCP Student in an Organized Health Care Education/Training Program; Visit Provider Internal Medicine | DX: A41.02 Sepsis due to Methicillin resistant Staphylococcus aureus (principal); I33.0 Acute and subacute infective endocarditis; M32.14 Glomerular disease in systemic lupus erythematosus; N17.9 Acute kidney failure, unspecified | CPT/HCPCS: 99223 ==

== ENCOUNTER → 2025-02-11 19:41 | Outpatient (BNV) | payer MEDICARE, MEDICAID, SELFPAY | PROVIDERS: Admitting Provider Registered Nurse Community Health; Emergency Provider Emergency Medicine; PCP Student in an Organized Health Care Education/Training Program; Visit Provider Internal Medicine Nephrology | DX: N17.9 Acute kidney failure, unspecified (principal) | CPT/HCPCS: 99232 ==

== ENCOUNTER → 2025-02-11 19:41 | Outpatient (BNV) | payer MEDICARE, MEDICAID, SELFPAY | PROVIDERS: Admitting Provider Registered Nurse Community Health; Emergency Provider Emergency Medicine; PCP Student in an Organized Health Care Education/Training Program; Visit Provider Student in an Organized Health Care Education/Training Program | DX: I33.0 Acute and subacute infective endocarditis (principal); M32.14 Glomerular disease in systemic lupus erythematosus; N17.9 Acute kidney failure, unspecified | CPT/HCPCS: 99232; 99233; 99499 ==

== ENCOUNTER 2025-03-13 14:32 | Emergency (ER) | payer MEDICARE, MEDICAID, SELFPAY ==
[2025-03-13 14:46] VITALS: BP 148/87; PULSE 116; RESP 16; TEMP 36.6; O2SAT 99; BMI 20.5
--- NOTE | 2025-03-13 14:48 | ED_ITS ---
HPI - General Adult General Chief complaint: General Medical Stated complaint: port issue Time Seen by Provider: 03/13/25 18:17 Source: patient Limitations: no limitations History of Present Illness ED Provider: Theresa Renee PA-C HPI narrative: 29-year-old female with a history of lupus, with a subsequent development of lupus nephritis, status post dialysis calf secondary to acute renal failure, who presents with bleeding from the dialysis catheter site. Patient states she rolled over in bed, developed bleeding. It has since stopped. Related Data Previous Rx's ?Medication ?Instructions ?Recorded labetalol 100 mg tablet 100 mg PO TID #90 tabs 03/26 amlodipine 5 mg tablet 5 mg PO DAILY #30 tabs 03/08 apixaban 2.5 mg tablet (Eliquis) 2.5 mg PO BID #60 tab s 03/08/25 calcitriol 0.25 mcg capsule 0.25 mcg PO DAILY #30 caps 03/08/25 clotrimazole 1 % vaginal cream 1 appl vaginal DAILY #4 5 grams 03/08/25 daptomycin 350 mg intravenous 342 mg IV Q24H 03/08/25 solution gabapentin 300 mg capsule 300 mg PO MoWeFr@1800 #12 ca ps 03/08/25 omeprazole 40 mg capsule,delayed 40 mg PO BID@0630,163 0 #60 caps 03/08/25 release prednisone 10 mg tablet 60 mg (6 x 10 mg) PO DIRE CTED 03/08/25 #180 tabs sevelamer carbonate 800 mg tablet 800 mg PO TIDWM #90 tabs 03/08/25 sodium bicarbonate 650 mg tablet 650 mg PO BID #60 tab s 03/08/25 sucralfate 1 gram tablet 1 g PO BIDAC #60 tabs hydromorphone 2 mg tablet 2 mg PO Q6H PRN pain (scale score 03/09/25 7-10) #20 tabs Allergies Allergy/AdvReac Type Severity Reaction Status Date / Time mycophenolate mofetil AdvReac Intermediate GI upset Verified 03/19/25 18:18 Review of Systems 2 Review of Systems: Yes all other systems are reviewed and are negative Constitutional: Constitutional: Denies fatigue and Denies fever(s) Cardiovascular: Cardiovascular: Denies chest pain and Denies dyspnea Respiratory: Respiratory: Denies dyspnea Gastrointestinal: Gastrointestinal: Denies nausea and Denies vomiting Endocrine: Endocrine: Denies fatigue [facility] Past Medical History Attestation statement: The following information was validated with the patient. Medical History (Updated 03/16/25 @ 00:03 by Background Daemon) Anemia At risk for increased anxiety Thrombocytopenia Pulmonary embolism Bicytopenia Infective endocarditis Acute hypoxic respiratory failure Lupus hepatitis Right lower lobe pneumonia manager intermediate (current) use of immunosuppressive biologic Systemic lupus erythematosus Pericarditis Lupus nephritis Pericardial effusion Essential hypertension Rash Acute on chronic anemia Abnormal uterine bleeding Hypertensive urgency Anemia Depression Anxiety Fibromyalgia Lupus Surgical History Hx of hernia repair Family History Family History Mother Hypertension Type 2 diabetes mellitus Lupus Arthritis Maternal Grandmother Hypertension Type 2 diabetes mellitus Arthritis Social History Social History Household Members: Spouse and Children Housing: Apartment Do you presently have visiting nurse or other home services: No Alcohol intake: former Comment: achy-lupus exacerbation Patient Tobacco Use Status: Current everyday Tobacco user Tobacco use type: Cigarette Cigarette Packs Per Day: 0.5 Years Smoked: 7 Second Hand Smoke Exposure: No Substance Use Type: Marijuana Advance Directives Date on File: 04/03/22 service: No Current occupational status: disabled Physical Exam ED Vital Signs: Vital Signs - 24 hr 03/13/25 14:46 03/13/25 16:36 Temperature 97.8 F 97.6 F Pulse Rate 116 H 103 H Respiratory Rate 16 21 H Blood Pressure 148/87 H 133/75 Pulse Oximetry 99 99 Oxygen Delivery Method Room Air Room Air BMI result Body Mass Index 20.5 Const Other: Alert Orientation/consciousness: patient oriented x3 Chest Other: Dialysis cath in left upper chest, not bleeding, there was dried clot over the site, sterile clean dressing applied Resp Effort & Inspection: normal respiratory effort Cardio Other: Normal peripheral perfusion Skin Other: Warm dry no rash Neuro General: patient oriented x3, gait normal, no focal motor deficits and CN's II- XI intact bilaterally Psych Other: Cooperative Course Course Course Narrative: 03/13/25 1448 ELLA Porras This is a Rapid Medical Examination (RME) performed by Juve Villavicencio PA-C in triage. Full HPI, ROS, assessment and treatment plan per primary provider in the Main ED. Hx: 29 yo F pericardial effusion, nephritis, HTN, anemia, anxiety, recently started T// dialysis here reporting bleeding from port site since this morning. last dialyzed on Friday (2 d ago), states they were closed yesterday. is not due for dialysis until Friday. unsure if she pulled the port in her sleep. Plan: further eval of port in back. Medications Administered Discontinued Medications Generic Name Dose Route Start Last Admin Trade Name Nancy PRN Reason Stop Dose Admin Oxycodone HCl 10 mg 03/13/25 19:10 03/13/25 19:17 Oxycodone Hcl Immed Release 5 Mg Tablet PO 03/13/25 19:11 10 mg ONCE ONE Administration Medical Decision Making Medical Decision Making [facility] Narrative: 29-year-old female with a history of lupus, with a subsequent development of lupus nephritis, status post dialysis calf secondary to acute renal failure, who presents with bleeding from the dialysis catheter site. Patient states she rolled over in bed, developed bleeding. It has since stopped. Problem: New dialysis cap History: Per patient I have considered the following differential diagnoses: Dialysis cath dysfunction, postoperative bleeding complication, Plan: There was no active bleeding, I change the dressing, screening labs were at her baseline, she is not due for dialysis for another day. I have independently reviewed the following tests: Labs: Leukocytosis noted, however this is chronic, patient has a anemic, H&H are 7.4 and 23.2 respectively, she is not at the point of requiring transfusion yet, no additional acute lab abnormalities Lab Data 03/13/25 15:11 03/13/25 15:11 Labs: Lab Results 03/13/25 Range/Units 15:11 WBC 17.1 H (4.8-10.8) X10*3/uL RBC 2.38 L D (4.20-5.50) X10*6/uL Hgb 7.4 L D (12.0-16.0) g/dl Hct 23.2 L (37.0-47.0) % MCV 97.5 D (80.0-98.0) fL MCH 31.1 (27.0-33.0) pg MCHC 31.9 (31.0-35.0) g/dl RDW 17.2 H (11.0-16.0) % Plt Count 165 D (160-400) X10*3/uL MPV 10.0 (9.4-12.3) fL Immature Gran % (Auto) 1.5 H (0.0-0.4) % Neut % (Auto) 92.2 H (45-73) % Lymph % (Auto) 4.6 L (20-40) % Rice % (Auto) 1.6 L (2-11) % Eos % (Auto) 0.0 (0-4) % Baso % (Auto) 0.1 (0-2) % Lymph # (Auto) 0.8 L (1.2-4.9) X10*3/uL Rice # (Auto) 0.3 (0.1-1.2) X10*3/uL Eos # (Auto) 0.0 (0.0-0.4) X10*3/uL Baso # (Auto) 0.0 (0.0-0.2) X10*3/uL Abs Immat Gran (auto) 0.25 H (0.00-0.03) X10*3/uL Absolute Neuts (auto) 15.8 H (2.0-8.3) x10*3/uL Absolute Nucleated RBC 0.000 (0.0-0.012) X10*3/uL Nucleated RBC % (auto) 0.0 (0.0-0.2) /100WBC Smear Tech's Comments VERIFIED Sodium 143 (135-145) mmol/L Potassium 4.7 (3.3-5.1) mmol/L Chloride 110 H (96-108) mmol/L Carbon Dioxide 24 (22-29) mmol/L Anion Gap 14 (12-20) BUN 46 H (9-16) mg/dL Creatinine 1.69 H (0.5-1.4) mg/dL Estim Creat Clear Calc 46.5 Estimated GFR 35 Random Glucose 126 H (60-115) mg/dL Calcium 7.9 L D (8.4-10.2) mg/dL Total Bilirubin 0.3 (0.0-1.0) mg/dL AST 18 (5-31) U/L ALT 13 (0-31) U/L Alkaline Phosphatase 60 (39-117) U/L Total Protein 5.1 L (6.5-8.0) g/dL Albumin 2.6 L (3.5-5.0) g/dL Discharge Plan Discharge Clinical Impression: Hemorrhage from dialysis catheter, Anemia Patient Disposition: Home, Self-Care Additional Instructions: There was no active bleeding from your dialysis catheter site. The catheter was sterilely redressed. 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 Prescriptions: No Action labetalol 100 mg Tablet 100 mg PO TID Qty: 90 0RF Protocol: Hold for SBP/HR < HOLD for SBP < : 90 HOLD for HR < : 60 amlodipine 5 mg Tablet 5 mg PO DAILY Qty: 30 0RF Protocol: Hold for SBP< HOLD for SBP < : 90 gabapentin 300 mg Capsule 300 mg PO MoWeFr@1800 Qty: 12 0RF sevelamer carbonate 800 mg Tablet 800 mg PO TIDWM Qty: 90 0RF Eliquis 2.5 mg Tablet 2.5 mg PO BID Qty: 60 0RF sucralfate 1 gram Tablet 1 g PO BIDAC Qty: 60 0RF omeprazole 40 mg Capsule,Delayed Release(Dr/Ec) 40 mg PO BID@0630,1630 Qty: 60 0RF sodium bicarbonate 650 mg Tablet 650 mg PO BID Qty: 60 0RF daptomycin 350 mg recon soln 342 mg IV Q24H Rx Instructions: administer over 30 mins prednisone 10 mg tablet 60 mg PO DIRECTED Qty: 180 0RF Rx Instructions: see taper instructions clotrimazole 1 % Cream 1 appl vaginal DAILY Qty: 45 0RF Rx Instructions: four more days of treatment for total of 7 days calcitriol 0.25 mcg Capsule 0.25 mcg PO DAILY Qty: 30 0RF hydromorphone 2 mg tablet 2 mg PO Q6H PRN (Reason: pain (scale score 7-10)) Qty: 20 0RF Rx Instructions: Partial Fill upon patient request. Interventions: ED Discharge Assessment Last Done: 03/13/25 20:01 Discharge Date/Time: 03/13/25 20:02 Print Language: Estonian
--- NOTE | 2025-03-13 14:50 | ECG_ITS ---
Test Reason : tachycardic Blood Pressure : */* mmHG Vent. Rate : 112 BPM Atrial Rate : 112 BPM P-R Int : 114 ms QRS Dur : 76 ms QT Int : 292 ms P-R-T Axes : 28 42 130 degrees QTcB Int : [address] & T wave abnormality, consider lateral ischemia Abnormal ECG When compared with ECG of 21-Feb-2025 20:25, Nonspecific T wave abnormality now evident in Inferior leads T wave inversion now evident in Lateral leads Referred By: Annabelle Villavicencio Electronically Signed By: SANJIV MORIN MD
[2025-03-13 15:17] LABS: Basophils Percent Auto 0.1 % (0-2); Hematocrit 23.2 % (37.0-47.0); Hemoglobin 7.4 g/dl (12.0-16.0); Imm Gran Abs Auto 0.25 X10*3/uL (0.00-0.03); Imm Gran Pct Auto 1.5 % (0.0-0.4); Lymphocytes Absolute Auto 0.8 X10*3/uL (1.2-4.9); Lymphocytes Percent Auto 4.6 % (20-40); MANUAL DIFF FLAG SCAN; Mean Corpuscular HGB Conc 31.9 g/dl (31.0-35.0); Mean Corpuscular Hemoglobin 31.1 pg (27.0-33.0); Mean Corpuscular Volume 97.5 fL (80.0-98.0); Monocytes Absolute Auto 0.3 X10*3/uL (0.1-1.2); Monocytes Percent Auto 1.6 % (2-11); Neutrophils Absolute Auto 15.8 x10*3/uL (2.0-8.3); Neutrophils Percent Auto 92.2 % (45-73); Platelet Count 165 X10*3/uL (160-400); Red Blood Count 2.38 X10*6/uL (4.20-5.50); Red Cell Distribution Width 17.2 % (11.0-16.0); SCAN SMEAR FLAG 1; White Blood Count 17.1 X10*3/uL (4.8-10.8)
[2025-03-13 15:32] LABS: Alanine Aminotransferase 13 U/L (0-31); Albumin Level 2.6 g/dL (3.5-5.0); Alkaline Phosphatase 60 U/L (39-117); Anion Gap 14 (12-20); Aspartate Amino Transferase 18 U/L (5-31); Bilirubin Total 0.3 mg/dL (0.0-1.0); Blood Urea Nitrogen 46 mg/dL (9-16); Calcium 7.9 mg/dL (8.4-10.2); Carbon Dioxide 24 mmol/L (22-29); Chloride 110 mmol/L (96-108); Creatinine Clr Calc Pharmacy 46.5; Estimated Glomerular Filt Rate 35; Glucose Random 126 mg/dL (60-115); Potassium 4.7 mmol/L (3.3-5.1); Sodium 143 mmol/L (135-145); Total Protein 5.1 g/dL (6.5-8.0)
[2025-03-13 15:37] LABS: SLIDE REVIEW VERIFIED
[2025-03-13 16:36] VITALS: BP 133/75; PULSE 103; RESP 21; TEMP 36.4; O2SAT 99
[2025-03-13] MEDS: oxyCODONE HCl Immed Release 5 MG TABLET 10 MG PO (19:17)
--- NOTE | 2025-03-13 19:42 | PC.NURSE ---
left chest HD cath redressed by ELLA Jimenez using sterile technique
[2025-03-13 20:01] VITALS: BP 145/86; PULSE 89; RESP 18; TEMP 36.8; O2SAT 100
== END 2025-03-13 20:02 | disposition home or self-care (01) ==
PROVIDERS: Physician Assistant Medical; Emergency Provider Emergency Medicine; PCP Student in an Organized Health Care Education/Training Program
DX: T82.838A Hemorrhage due to vascular prosthetic devices, implants and grafts, initial encounter (principal); Y92.9 Unspecified place or not applicable; Y82.9 Unspecified medical devices associated with adverse incidents; Z99.2 Dependence on renal dialysis; R00.0 Tachycardia, unspecified; M32.14 Glomerular disease in systemic lupus erythematosus; D64.9 Anemia, unspecified; E32.8 Other diseases of thymus
CPT/HCPCS: 36415; 80053; 85025; 93005; 99283; 99284

== ENCOUNTER → 2025-03-13 14:50 | Outpatient (BNV) | payer MEDICARE, MEDICAID, SELFPAY | PROVIDERS: Emergency Provider Emergency Medicine; PCP Student in an Organized Health Care Education/Training Program; Visit Provider Internal Medicine Cardiovascular Disease | DX: R00.0 Tachycardia, unspecified (principal) | CPT/HCPCS: 93010 ==

== ENCOUNTER 2025-03-19 18:04 | Inpatient (IN) | payer MEDICARE, MEDICAID, SELFPAY ==
[2025-03-19] VITALS (7 sets, daily range): BP systolic 149–178; BP diastolic 86–99; PULSE 77–115; RESP 16–20; TEMP 36.6–37; O2SAT 97–100; BMI 21.6
--- NOTE | 2025-03-19 | ECG_ITS ---
Test Reason : tachy Blood Pressure : */* mmHG Vent. Rate : 110 BPM Atrial Rate : 110 BPM P-R Int : 140 ms QRS Dur : 80 ms QT Int : 346 ms P-R-T Axes : 32 40 144 degrees QTcB Int : 468 ms Sinus tachycardia Left ventricular hypertrophy with repolarization abnormality ( Sokolow-Bhatti ) Abnormal ECG When compared with ECG of 13-Mar-2025 15:04, No significant change was found Referred By: Generic ED Physician Electronically Signed By: SANJIV MORIN MD
--- NOTE | ~2025-03-19 | IR_ITS ---
TUNNELED CATHETER REMOVAL HISTORY: Left-sided tunneled central venous catheter no longer needed. TECHNIQUE: Left chest wall tunneled catheter in place. Bandaging was removed. The area was cleansed with ChloraPrep. Sutures were cut with sterile scissors. The cuff was freed from the fibrous band with firm pressure, and the catheter was removed with one steady motion. Hemostasis was achieved. A sterile dry dressing was applied to the catheter site. No immediate complication. IR/IR cvc remov tunnel wo prt/supervisor electronics testing IMPRESSION: Successful removal of a left sided tunneled central venous catheter. Electronically signed by: Dutch Gutierrez MD 03/24/2025 12:32 PM EDT
--- NOTE | ~2025-03-19 | US_ITS ---
EXAMINATION: US TRIPLEX UPPER EXTREMITY, RIGHT CLINICAL INFORMATION: Follow-up right internal jugular thrombosis. COMPARISON: 02/25/2025. TECHNIQUE: Color-flow triplex imaging with spectral analysis and compression Doppler was performed on the right upper extremity. FINDINGS: There is partially occlusive thrombus present within the right internal jugular vein. The right subclavian, and axillary veins are patent and free of thrombus. The imaged segment of the right brachiocephalic vein is patent. Spectral doppler waveforms are normal. The brachial, basilic, cephalic, radial, and ulnar veins are patent and compressible. US/US venous duplex UE RT IMPRESSION: Partially occlusive deep venous thrombosis seen in the right internal jugular vein. All other veins in the right upper extremity are negative for DVT. Electronically signed by: Dutch Gutierrez MD 03/22/2025 02:24 PM EDT
--- NOTE | ~2025-03-19 | US_ITS ---
EXAMINATION: US TRIPLEX LOWER EXTREMITY, RIGHT CLINICAL INFORMATION: Follow-up on right lower extremity thrombus. COMPARISON: 02/19/2025. TECHNIQUE: Color-flow triplex imaging with spectral analysis and compression Doppler were performed on the right lower extremity. FINDINGS: Respiratory variation, normal compression and augmented flow are noted throughout the right lower extremity. The visualized common femoral vein, superficial femoral vein, profunda femoral vein, popliteal vein and midcalf peroneal and posterior tibial venous segments show no evidence of deep venous thrombosis. There is no Mills's cyst. There are a few reactive appearing right groin lymph nodes. US/US venous duplex LE RT IMPRESSION: No evidence of deep venous thrombosis involving the right lower extremity. Electronically signed by: Dutch Gutierrez MD 03/22/2025 09:06 AM EDT
[2025-03-19 18:33] LABS: MANUAL DIFF FLAG NO
[2025-03-19 18:37] LABS: Imm Gran Abs Auto 0.35 X10*3/uL (0.00-0.03); Imm Gran Pct Auto 2.7 % (0.0-0.4); Lymphocytes Absolute Auto 1.5 X10*3/uL (1.2-4.9); Mean Corpuscular HGB Conc 32.1 g/dl (31.0-35.0); Mean Corpuscular Hemoglobin 31.3 pg (27.0-33.0); Mean Corpuscular Volume 97.5 fL (80.0-98.0); NRBC Abs Auto 0.050 X10*3/uL (0.0-0.012); NRBC Pct Auto 0.4 /100WBC (0.0-0.2); Platelet Count 253 X10*3/uL (160-400); Red Blood Count 2.01 X10*6/uL (4.20-5.50); White Blood Count 13.1 X10*3/uL (4.8-10.8)
[2025-03-19 18:42] LABS: Hemoglobin 6.3 g/dl (12.0-16.0)
[2025-03-19 18:43] LABS: Hematocrit 19.6 % (37.0-47.0)
[2025-03-19 18:50] LABS: Alanine Aminotransferase 9 U/L (0-31); Albumin Level 2.9 g/dL (3.5-5.0); Alkaline Phosphatase 55 U/L (39-117); Anion Gap 15 (12-20); Aspartate Amino Transferase 20 U/L (5-31); Blood Urea Nitrogen 9 mg/dL (9-16); Calcium 8.0 mg/dL (8.4-10.2); Carbon Dioxide 26 mmol/L (22-29); Chloride 104 mmol/L (96-108); Creatinine Clr Calc Pharmacy 102.9; Estimated Glomerular Filt Rate > 60; Magnesium 1.6 mg/dL (1.6-2.6); Potassium 3.7 mmol/L (3.3-5.1); Sodium 141 mmol/L (135-145); Total Protein 5.6 g/dL (6.5-8.0)
--- NOTE | 2025-03-19 19:54 | ED.GENADULT ---
HPI - General Adult General Chief complaint: Weakness Stated complaint: Pt states blood count low, weak after dialysis Time Seen by Provider: 03/19/25 18:56 Source: patient Limitations: no limitations History of Present Illness ED Provider: Theresa Renee PA-C HPI narrative: 29-year-old female with a history of lupus with the subsequent development of lupus nephritis, on HD //fri secondary to acute renal failure, pericardial effusion who is on daily 10 mg prednisone, HTN, anemia, PE on eliquis, anxiety/depression, fibromyalgia, chronic pain on opiate therapy who presents with a worsening anemia. Patient states she completed dialysis this morning, she was called due to critical anemia. Associated generalized weakness, fatigue. Denies bright red blood per rectum. Related Data Previous Rx's ?Medication ?Instructions ?Recorded labetalol 100 mg tablet 100 mg PO TID #90 tabs 03/26/22 amlodipine 5 mg tablet 5 mg PO DAILY #30 tabs 03/08/25 apixaban 2.5 mg tablet (Eliquis) 2.5 mg PO BID #60 tabs 03/08/25 calcitriol 0.25 mcg capsule 0.25 mcg PO DAILY #30 caps 03/08/25 clotrimazole 1 % vaginal cream 1 appl vaginal DAILY #45 grams 03/08/25 daptomycin 350 mg intravenous 342 mg IV Q24H 03/08/25 solution gabapentin 300 mg capsule 300 mg PO MoWeFr@1800 #12 caps 03/08/25 omeprazole 40 mg capsule,delayed 40 mg PO BID@0630,1630 #60 caps 03/08/25 release prednisone 10 mg tablet 60 mg (6 x 10 mg) PO DIRECTED 03/08/25 #180 tabs sevelamer carbonate 800 mg tablet 800 mg PO TIDWM #90 tabs 03/08/25 sodium bicarbonate 650 mg tablet 650 mg PO BID #60 tabs 03/08/25 sucralfate 1 gram tablet 1 g PO BIDAC #60 tabs 03/08/25 hydromorphone 2 mg tablet 2 mg PO Q6H PRN pain (scale score 03/09/25 7-10) #20 tabs Allergies Allergy/AdvReac Type Severity Reaction Status Date / Time mycophenolate mofetil AdvReac Intermediate GI upset Verified 03/19/25 18:18 Review of Systems Review of Systems: Yes all other systems are reviewed and are negative Constitutional: Constitutional: Reports fatigue, Denies fever(s) and Reports weakness Cardiovascular: Cardiovascular: Denies chest pain and Denies dyspnea Respiratory: Respiratory: Denies cough and Denies dyspnea Gastrointestinal: Gastrointestinal: Denies abdominal pain, Denies melena, Denies hematochezia, Denies nausea and Denies vomiting Neurologic: Reports weakness Endocrine: Endocrine: Reports fatigue PMFSH Past Medical History Attestation statement: The following information was validated with the patient. 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 Systemic lupus erythematosus Pericarditis Lupus nephritis Pericardial effusion Essential hypertension Rash Acute on chronic anemia Abnormal uterine bleeding Hypertensive urgency Anemia Depression Anxiety Fibromyalgia Lupus Surgical History Hx of hernia repair Family History Family History Mother Hypertension Type 2 diabetes mellitus Lupus Arthritis Maternal Grandmother Hypertension Type 2 diabetes mellitus Arthritis Social History Social History Household Members: Spouse and Children Housing: Apartment Do you presently have visiting nurse or other home services: No Alcohol intake: former Comment: achy-lupus exacerbation Patient Tobacco Use Status: Current everyday Tobacco user Tobacco use type: Cigarette Cigarette Packs Per Day: 0.5 Years Smoked: 7 Smoked in Last 30 Days: No Second Hand Smoke Exposure: No Use of substances other than those prescribed or required for medical reasons: Yes Substance Use Type: Marijuana Substance Use Frequency: Occasionally Last Used Substance: Unknown Any prior treatment program specific to substance use: No Advance Directives: Yes Advance Directives on File: Yes Advance Directives Date on File: 04/03/22 Patient : No service: No Current occupational status: disabled Physical Exam ED Vital Signs: Vital Signs - 24 hr 03/19/25 18:14 03/19/25 19:50 03/19/25 19:52 Temperature 98.6 F 98.5 F Pulse Rate 113 H 95 Respiratory Rate 18 20 20 Blood Pressure 169/97 H 154/99 H Pulse Oximetry 100 Oxygen Delivery Method Room Air 03/19/25 20:06 Temperature 98.2 F Pulse Rate 86 Respiratory Rate 16 Blood Pressure 150/94 H Pulse Oximetry Oxygen Delivery Method BMI result Body Mass Index 21.6 Const Other: Alert, ill-appearing, pale Orientation/consciousness: patient oriented x3 Resp Effort & Inspection: normal respiratory effort Cardio Other: Normal peripheral perfusion Skin Other: Warm dry no rash Neuro General: patient oriented x3, gait normal, no focal motor deficits and CN's II-XI intact bilaterally Psych Other: Cooperative Course Reevaluation(s) Reevaluation #1: Dr. Ruiz wants a guaiac, it is positive Time: 20:17 Medications Administered Discontinued Medications Generic Name Dose Route Start Last Admin Trade Name Freq PRN Reason Stop Dose Admin Hydromorphone HCl 1 mg 03/19/25 19:37 03/19/25 19:52 Hydromorphone Hcl 1 Mg/Ml Syringe IVPUSH 03/19/25 19:38 1 mg ONCE ONE Administration Protocol Medical Decision Making Medical Decision Making MDM Narrative: 29-year-old female with a history of lupus with the subsequent development of lupus nephritis, on HD //fri secondary to acute renal failure, pericardial effusion who is on daily 10 mg prednisone, HTN, anemia, PE on eliquis, anxiety/depression, fibromyalgia, chronic pain on opiate therapy who presents with a worsening anemia. Patient states she completed dialysis this morning, she was called due to critical anemia. Associated generalized weakness, fatigue. Denies bright red blood per rectum. Lab Data 03/19/25 18:30 03/19/25 18:30 Labs: Lab Results 03/19/25 03/19/25 Range/Units 18:27 18:30 WBC 13.1 H (4.8-10.8) X10*3/uL RBC 2.01 L (4.20-5.50) X10*6/uL Hgb 6.3 L* (12.0-16.0) g/dl Hct 19.6 L* (37.0-47.0) % MCV 97.5 (80.0-98.0) fL MCH 31.3 (27.0-33.0) pg MCHC 32.1 (31.0-35.0) g/dl RDW 17.6 H (11.0-16.0) % Plt Count 253 D (160-400) X10*3/uL MPV 9.3 L (9.4-12.3) fL Immature Gran % (Auto) 2.7 H (0.0-0.4) % Neut % (Auto) 83.4 H (45-73) % Lymph % (Auto) 11.4 L (20-40) % Dillon % (Auto) 2.4 (2-11) % Eos % (Auto) 0.0 (0-4) % Baso % (Auto) 0.1 (0-2) % Lymph # (Auto) 1.5 (1.2-4.9) X10*3/uL Dillon # (Auto) 0.3 (0.1-1.2) X10*3/uL Eos # (Auto) 0.0 (0.0-0.4) X10*3/uL Baso # (Auto) 0.0 (0.0-0.2) X10*3/uL Abs Immat Gran (auto) 0.35 H (0.00-0.03) X10*3/uL Absolute Neuts (auto) 10.9 H (2.0-8.3) x10*3/uL Absolute Nucleated RBC 0.050 H (0.0-0.012) X10*3/uL Nucleated RBC % (auto) 0.4 H (0.0-0.2) /100WBC Sodium 141 (135-145) mmol/L Potassium 3.7 D (3.3-5.1) mmol/L Chloride 104 (96-108) mmol/L Carbon Dioxide 26 (22-29) mmol/L Anion Gap 15 (12-20) BUN 9 (9-16) mg/dL Creatinine 0.77 (0.5-1.4) mg/dL Estim Creat Clear Calc 102.9 Estimated GFR > 60 Random Glucose 160 H (60-115) mg/dL Calcium 8.0 L (8.4-10.2) mg/dL Magnesium 1.6 (1.6-2.6) mg/dL Total Bilirubin 0.2 (0.0-1.0) mg/dL AST 20 (5-31) U/L ALT 9 (0-31) U/L Alkaline Phosphatase 55 (39-117) U/L Total Protein 5.6 L (6.5-8.0) g/dL Albumin 2.9 L (3.5-5.0) g/dL Blood Type A Positive Antibody Screen NEGATIVE Crossmatch See Detail Discharge Plan Discharge Clinical Impression: Anemia, GI bleed Patient Disposition: Admitted As Inpatient
--- NOTE | 2025-03-19 20:00 | PC.NURSE ---
This curriculum writer assumed care of this Pt at 1900. Pt A&Ox3, reports 10 all over body pain. Pt medicated per NOV. 1st unit of blood started. Pt denies any CP/SOB/hives.
[2025-03-19 20:33] LABS: OBS Int Ctl Valid YES; OBS1 POSITIVE (NEGATIVE)
[2025-03-19 20:57] LABS: Iron 42 mcg/dL (30-160); Percent Iron Saturation 23 % (15-50); Total Iron Binding Capacity 181 mcg/dL (228-428); Unsaturated Iron Binding 139 ug/dL
--- NOTE | 2025-03-19 21:40 | PM.IMHP ---
History of Present Illness Date of Service: 03/19/25 Attending physician on admission: Meek Padilla Chief Complaint: anemia Patient is a 29-year-old female with a past medical history 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 The patient reports weakness and fatigue after having dialysis today. She is receiving 2 units of PRBC in the ED. she also complains of bilateral lower extremity pain for the past week or so, slightly improving. She has started to produce urine as well. She denies any melena, rectal bleeding or hematemesis. She also denies any nausea, vomiting or abdominal pain. No shortness a breath, chest pain or URI symptoms. Review of Systems Constitutional: Constitutional: Reports body ache(s), Denies chills, Reports fatigue, Denies fever(s), Denies headache(s) and Reports lethargy Eyes: Eyes: Denies change in vision ENT: Denies headache(s), Denies nasal congestion and Denies sore throat Cardiovascular: Cardiovascular: Denies chest pain, Denies rapid heart rate, Denies leg edema and Denies dyspnea Respiratory: Respiratory: Denies chest congestion, Denies cough, Denies dyspnea and Denies wheezing Gastrointestinal: Gastrointestinal: Denies abdominal pain, Denies melena, Denies hematochezia, Denies diarrhea, Denies nausea, Denies vomiting and Denies hematemesis Genitourinary: Genitourinary: Denies dysuria Musculoskeletal: Comments: bilateral leg pain Integumentary/Breasts: Skin/Breast: Denies rash Neurologic: Denies confusion and Denies headache(s) Psychiatric: Psychiatric: Denies confusion Endocrine: Endocrine: Reports fatigue Hematologic/Lymphatic: Hematologic/Lymphatic: Denies easy bleeding and Denies easy bruising Allergic/Immunologic: Allergic/Immunologic: Denies wheezing [facility] Medical History Anemia At risk for increased anxiety Thrombocytopenia Pulmonary embolism Bicytopenia Infective endocarditis Acute hypoxic respiratory failure Lupus hepatitis Right lower 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 Systemic lupus erythematosus Pericarditis Lupus nephritis Pericardial effusion Essential hypertension Rash Acute on chronic anemia Abnormal uterine bleeding Hypertensive urgency Anemia Depression Anxiety Fibromyalgia Lupus Functional capacity: uses cane/walker Family History Mother Hypertension Type 2 diabetes mellitus Lupus Arthritis Maternal Grandmother Hypertension Type 2 diabetes mellitus Arthritis Surgical History Hx of hernia repair Social History Household Members: Spouse and Children Housing: Apartment Do you presently have visiting nurse or other home services: No Alcohol intake: former Comment: achy-lupus exacerbation Patient Tobacco Use Status: Current everyday Tobacco user Tobacco use type: Cigarette Cigarette Packs Per Day: 0.5 Years Smoked: 7 Smoked in Last 30 Days: No Second Hand Smoke Exposure: No Use of substances other than those prescribed or required for medical reasons: Yes Substance Use Type: Marijuana Substance Use Frequency: Occasionally Last Used Substance: Unknown Any prior treatment program specific to substance use: No Advance Directives: Yes Advance Directives on File: Yes Advance Directives Date on File: 04/03/22 Patient : No service: No Current occupational status: disabled Narrative: No smoking, alcohol or drug use Meds Allergies Allergy/AdvReac Type Severity Reaction Status Date / Time mycophenolate mofetil AdvReac Intermediate GI upset Verified 03/19/25 18:18 Active Medications: Current Medications Acetaminophen (Acetaminophen 325 Mg Tablet) 975 mg PO Q6H PRN PRN Reason: Pain, Mild 1-3,fever,headache Calcium Carbonate (Calcium Carbonate 750 Mg Tab.Chew) 750 mg PO Q4H PRN PRN Reason: Heartburn Hydromorphone HCl (Hydromorphone Hcl 0.5 Mg/0.5 Ml Syringe) 1 mg IVPUSH Q4H PRN; Protocol PRN Reason: Pain, Severe (Pain Scale 7-10) Magnesium Hydroxide (Milk Of Magnesia 30 Ml Oral.Susp) 30 ml PO DAILY PRN PRN Reason: Constipation Melatonin (Melatonin 3 Mg Tablet) 6 mg PO BEDTIME PRN PRN Reason: Insomnia Ondansetron HCl (Ondansetron Hcl 4 Mg/2 Ml Vial) 4 mg IVPUSH Q8H PRN PRN Reason: Nausea and Vomiting Oxycodone HCl (Oxycodone Hcl Immed Release 5 Mg Tablet) 5 mg PO Q6H PRN PRN Reason: Pain, Moderate(Pain Scale 4-6) Pantoprazole Sodium (Pantoprazole Sodium 40 Mg/10 Ml Vial) 40 mg IVPUSH BID@0630,1630 [facility] Sodium Chloride (0.9 % Sodium Chloride Flush 3 Ml Syringe) 3 ml IVFLUSH QSHIFT GERARDO Physical Exam Vital Signs and Narrative: Vital Signs: Last Vital Signs Temp 98.2 F 03/19/25 20:06 Pulse 86 03/19/25 20:06 Resp 16 03/19/25 20:06 BP 150/94 H 03/19/25 20:06 Pulse Ox 100 03/19/25 18:14 O2 Del Method Room Air 03/19/25 18:14 BMI result Body Mass Index 21.6 General: AOx3, no acute distress Resp: CTA bilaterally, no wheezing or crackles CVS: S1, S2, RRR GI: +BS, NT, no distention Skin: Warm, dry Neuro: Cranial nerves II-XII grossly intact bilaterally. Motor grossly intact bilaterally Extremities: No LE edema Psych: Appropriate affect Const: General: No confusion Orientation/consciousness: No confusion Neuro: General: No confusion Results Labs 03/19/25 18:30 03/19/25 18:30 Labs: Laboratory Results - last 24 hr 03/19/25 03/19/25 03/19/25 18:27 18:30 20:29 MCV 97.5 MCH 31.3 MCHC 32.1 RDW 17.6 H Plt Count 253 D MPV 9.3 L Immature Gran % (Auto) 2.7 H Neut % (Auto) 83.4 H Lymph % (Auto) 11.4 L [place] % (Auto) 2.4 Eos % (Auto) 0.0 Baso % (Auto) 0.1 Lymph # (Auto) 1.5 [place] # (Auto) 0.3 Eos # (Auto) 0.0 Baso # (Auto) 0.0 Abs Immat Gran (auto) 0.35 H Absolute Neuts (auto) 10.9 H Absolute Nucleated RBC 0.050 H Nucleated RBC % (auto) 0.4 H Anion Gap 15 Estim Creat Clear Calc 102.9 Estimated GFR > 60 Random Glucose 160 H Calcium 8.0 L Magnesium 1.6 Iron 42 TIBC 181 L % Saturation 23 Unsat Iron Binding 139 Total Bilirubin 0.2 AST 20 ALT 9 Alkaline Phosphatase 55 Total Protein 5.6 L Albumin 2.9 L Stool Occult Blood POSITIVE Blood Type A Positive Antibody Screen NEGATIVE Crossmatch See Detail Assessment and Plan (1) Anemia: Status: Acute (2) ESRD (end stage renal disease) on dialysis: Status: Acute Plan Patient is a 29-year-old female with a past medical history 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 last done received today. - ID consult hx PE - hold eliquis - chest CTA 03/04/25 without PE after VQ scan 02/18/25 with PE HTN - continue home meds hx pericardial effusion - continue home meds fibromyalgia - continue home meds med rec pending full code VTE prophy: pneumoboots Patient with acute on chronic normocytic anemia with positive fecal occult blood test, requiring admission for at least 2 midnight stay for blood transfusion, monitoring and specialist consultation. Quality Stroke Does the patient have a stroke diagnosis?: No VTE Prior VTE?: No VTE Risk Level:: Medical - moderate - high VTE Device Contraindication: N/A - Device Ordered VTE Drug Contraindication: Treatment Not Indicated
--- NOTE | 2025-03-19 23:22 | PC.NURSE ---
Second unit of PRBC transfusing, Pt denies any CP/SOB/Chills or difficulty breathing.
[2025-03-20] VITALS (9 sets, daily range): BP systolic 149–180; BP diastolic 87–107; PULSE 64–89; RESP 13–22; TEMP 36.3–37; O2SAT 99–100
[2025-03-20 02:05] LABS: Hematocrit 27.0 % (37.0-47.0); Hemoglobin 9.0 g/dl (12.0-16.0)
[2025-03-20] MEDS: oxyCODONE HCl Immed Release 5 MG TABLET PO ×3 (02:15→15:09)
[2025-03-20 06:15] LABS: Anion Gap 12 (12-20); Blood Urea Nitrogen 15 mg/dL (9-16); Calcium 8.1 mg/dL (8.4-10.2); Carbon Dioxide 29 mmol/L (22-29); Chloride 105 mmol/L (96-108); Creatinine Clr Calc Pharmacy 81.7; Estimated Glomerular Filt Rate > 60; Potassium 3.5 mmol/L (3.3-5.1); Sodium 142 mmol/L (135-145)
[2025-03-20 06:30] LABS: Hematocrit 26.2 % (37.0-47.0); Hemoglobin 8.9 g/dl (12.0-16.0); Mean Corpuscular HGB Conc 34.0 g/dl (31.0-35.0); Mean Corpuscular Hemoglobin 32.1 pg (27.0-33.0); Mean Corpuscular Volume 94.6 fL (80.0-98.0); NRBC Abs Auto 0.080 X10*3/uL (0.0-0.012); NRBC Pct Auto 0.8 /100WBC (0.0-0.2); Platelet Count 219 X10*3/uL (160-400); Red Blood Count 2.77 X10*6/uL (4.20-5.50); White Blood Count 9.8 X10*3/uL (4.8-10.8)
--- NOTE | 2025-03-20 07:25 | P.PNIM_ITS ---
Subjective Subjective Date of Service: 03/20/25 Interval History: f/u on anemai,+FOBT no active, overall calm, no complaint, inquire about nature of EGD Physical Exam 2 Vital Signs: Vital Signs: Last Vital Signs Temp 98.1 F 03/20/25 06:00 Pulse 89 03/20/25 06:00 Resp 22 H 03/20/25 06:00 BP 171/106 H 03/20/25 06:00 Pulse Ox 100 03/20/25 06:00 O2 Del Method Room Air 03/20/25 06:00 BMI result Body Mass Index 21.6 Const: Other: General: AO X 3, no acute distress Resp: CTA bilateral CVS: S1,S2,RRR GI: +BS, NT, no distention Skin: No rash Neuro: motor grossly intact Psych: appropriate affect Objective Data Active Medications Acetaminophen (Acetaminophen 325 Mg Tablet) 975 mg PO Q6H PRN PRN Reason: Pain, Mild 1-3,fever,headache Calcium Carbonate (Calcium Carbonate 750 Mg Tab.Chew) 750 mg PO Q4H PRN PRN Reason: Heartburn Hydromorphone HCl (Hydromorphone Hcl 1 Mg/Ml Syringe) 1 mg IVPUSH Q3H PRN; Protocol PRN Reason: Pain, Severe (Pain Scale 7-10) Last Admin: 03/20/25 06:29 Dose: 1 mg Documented By: KALI Daptomycin 340 mg/ Sodium (Chloride) 56.8 mls @ 100 mls/hr IV TuTh@2000 [facility] Daptomycin 500 mg/ Sodium (Chloride) 60 mls @ 100 mls/hr IV Sa@2000 [facility] Magnesium Hydroxide (Milk Of Magnesia 30 Ml Oral.Susp) 30 ml PO DAILY PRN PRN Reason: Constipation Melatonin (Melatonin 3 Mg Tablet) 6 mg PO BEDTIME PRN PRN Reason: Insomnia Ondansetron HCl (Ondansetron Hcl 4 Mg/2 Ml Vial) 4 mg IVPUSH Q8H PRN PRN Reason: Nausea and Vomiting Oxycodone HCl (Oxycodone Hcl Immed Release 5 Mg Tablet) 5 mg PO Q6H PRN PRN Reason: Pain, Moderate(Pain Scale 4-6) Last Admin: 03/20/25 02:15 Dose: 5 mg Documented By: KALI Pantoprazole Sodium (Pantoprazole Sodium 40 Mg/10 Ml Vial) 40 mg IVPUSH BID@0630,1630 [facility] Last Admin: 03/20/25 06:29 Dose: 40 mg Documented By: KALI Sodium Chloride (0.9 % Sodium Chloride Flush 3 Ml Syringe) 3 ml IVFLUSH QSHIFT [facility] Last Admin: 03/19/25 23:23 Dose: Not Given Documented By: KALI Non-Admin Reason: IV Running Labs 03/20/25 05:45 03/20/25 05:45 Labs: Laboratory Results - last 24 hr 03/19/25 03/19/25 03/19/25 18:27 18:30 20:29 MCV 97.5 MCH 31.3 MCHC 32.1 RDW 17.6 H Plt Count 253 D MPV 9.3 L Immature Gran % (Auto) 2.7 H Neut % (Auto) 83.4 H Lymph % (Auto) 11.4 L [place] % (Auto) 2.4 Eos % (Auto) 0.0 Baso % (Auto) 0.1 Lymph # (Auto) 1.5 [place] # (Auto) 0.3 Eos # (Auto) 0.0 Baso # (Auto) 0.0 Abs Immat Gran (auto) 0.35 H Absolute Neuts (auto) 10.9 H Absolute Nucleated RBC 0.050 H Nucleated RBC % (auto) 0.4 H Anion Gap 15 Estim Creat Clear Calc 102.9 Estimated GFR > 60 Random Glucose 160 H Calcium 8.0 L Magnesium 1.6 Iron 42 TIBC 181 L % Saturation 23 Unsat Iron Binding 139 Total Bilirubin 0.2 AST 20 ALT 9 Alkaline Phosphatase 55 Total Protein 5.6 L Albumin 2.9 L Stool Occult Blood POSITIVE Blood Type A Positive Antibody Screen NEGATIVE Crossmatch See Detail 03/20/25 05:45 MCV 94.6 MCH 32.1 MCHC 34.0 RDW 16.8 H Plt Count 219 MPV 8.7 L Immature Gran % (Auto) Neut % (Auto) Lymph % (Auto) [place] % (Auto) Eos % (Auto) Baso % (Auto) Lymph # (Auto) [place] # (Auto) Eos # (Auto) Baso # (Auto) Abs Immat Gran (auto) Absolute Neuts (auto) Absolute Nucleated RBC 0.080 H Nucleated RBC % (auto) 0.8 H Anion Gap 12 Estim Creat Clear Calc 81.7 Estimated GFR > 60 Random Glucose 76 Calcium 8.1 L Magnesium Iron TIBC % Saturation Unsat Iron Binding Total Bilirubin AST ALT Alkaline Phosphatase Total Protein Albumin Stool Occult Blood Blood Type Antibody Screen Crossmatch Assessment and Plan (1) Anemia: Status: Acute (2) CKD (chronic kidney disease) stage 3, GFR 30-59 ml/min: Status: Acute (3) Acute kidney injury superimposed on chronic kidney disease: Status: Acute (4) ESRD (end stage renal disease) on dialysis: Status: Acute (5) Acute renal failure (ARF): Status: Acute Plan Patient is a 29-year-old female with a past medical history 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 Lupus with nephritis continue prednisone but reduce to 40 mg daily, potentially can cause gastritis HTN continue home meds hx pericardial effusion - continue home meds fibromyalgia continue home meds full code VTE prophy: pneumoboots Patient with acute on chronic normocytic anemia with positive fecal occult blood test, requiring admission for at least 2 midnight stay for blood transfusion, monitoring and specialist consultation. Quality Stroke Does the patient have a stroke diagnosis?: No VTE Prior VTE?: No VTE Risk Level:: Medical - moderate - high VTE Device Contraindication: N/A - Device Ordered VTE Drug Contraindication: Treatment Not Indicated
[2025-03-20] MEDS: 0.9 % Sodium Chloride Flush 3 ML SYRINGE IVFLUSH ×2 (07:59→15:09)
--- NOTE | 2025-03-20 09:27 | PM.EVENT ---
Event Note Date of Service: 03/20/25 Event Note: Chart reviewed Obtain 24 hr urine collection- starting tomorrow morning( 03/21/25) for creatinine clearance Hold dialysis until 24 hr urine collection is completed Full consult to follow Time Spent With Patient Time: Total time managing care of this patient today ____ minutes.
--- NOTE | 2025-03-20 09:53 | PHA.MEDREC ---
Pharmacy Consult ? Medication Reconciliation Pharmacy has completed the medication reconciliation, spoke to patient at bedside who confirmed all medications. Pt stated she has not started the sevelamer yet so left unconfirmed. Pt was recently discharged, utilized claims and discharged packet to verify.
--- NOTE | 2025-03-20 10:33 | P.CNGI_ITS ---
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 Pt was seen at [facility] on 03/19/25 after going to dialysis and was found to have severe anemia with a hemoglobin of 6.3. She reported weakness and fatigue after having dialysis yesterday and also complained of bilateral lower extremity pain for the past week or so, slightly improving. Pt denies abdominal pain, nausea, vomiting or hematemesis. Patient reports having a bowel movement every time she eats - usually 2-3 times per day sometimes with diarrhea. Patient notes her bowel movements are becoming more regular. She noted black stools for a few days after she was discharged from the hospital - lately stools have been dark brown in color. Pt denied melena, rectal bleeding or hematemesis, nausea, vomiting or abdominal pain, shortness a breath, chest pain or URI symptoms. Patient is on Eliquis for right jugular vein clot and last dose of Eliquis was on 03/19/2025 around 09:00 In the ED. pt was transfused 2 units of PRBC with improvement in H&H to 9 & 27. She has started to produce urine as well. 03/03/[address] CEDENO: Esophagus: GE junction at 37 cm, diaphragm hiatus at 40 cm, consistent with 3 cm hiatal hernia. White spots noted thru out the esophagus consistent with candidiasis. Stomach: patchy erythema with few erosions and red streaks in the antrum suggestive of GAVE . Biopsies were obtained. Close to the pyloric outlet there was a spot which continued to ooze blood. A clip was applied but it kept bleeding so APC was used and then hemospray with good effect Intervention: Biopsies as noted above, APC and clip, hemospray for control of bleeding Impression/Findings: gastritis, erosions esophgeal candidiasis GAVE PLAN: restart heparin in 4 hrs and transition to NOAC tomorrow carafate BID with BID dosing PPI but not at same times fluconazole for kirby GERD precautions BIOPSIES SHOWED: Stomach, biopsy: Reactive gastropathy; negative for H.pylori, intestinal metaplasia and dysplasia. Comment: Features of GAVE are not identified Review of Systems 2 Constitutional: Constitutional: Reports body ache(s), Denies chills, Reports fatigue, Denies fever(s), Denies headache(s) and Reports lethargy Eyes: Eyes: Denies change in vision ENT: Denies headache(s), Denies nasal congestion and Denies sore throat Cardiovascular: Cardiovascular: Denies chest pain, Denies rapid heart rate, Denies leg edema and Denies dyspnea Respiratory: Respiratory: Denies chest congestion, Denies cough, Denies dyspnea and Denies wheezing Gastrointestinal: Gastrointestinal: Denies abdominal pain, Denies melena, Denies hematochezia, Denies diarrhea, Denies nausea, Denies vomiting and Denies hematemesis Genitourinary: Genitourinary: Denies dysuria Musculoskeletal: Comments: bilateral leg pain Integumentary/Breasts: Skin/Breast: Denies rash Neurologic: Denies confusion and Denies headache(s) Psychiatric: Psychiatric: Denies confusion Endocrine: Endocrine: Reports fatigue Hematologic/Lymphatic: Hematologic/Lymphatic: Denies easy bleeding and Denies easy bruising Allergic/Immunologic: Allergic/Immunologic: Denies wheezing PMFSH Past Medical History Medical History Anemia At risk for increased anxiety Thrombocytopenia Pulmonary embolism Bicytopenia Infective endocarditis Acute hypoxic respiratory failure Lupus hepatitis Right lower lobe pneumonia 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 Systemic lupus erythematosus Pericarditis Lupus nephritis Pericardial effusion Essential hypertension Rash Acute on chronic anemia Abnormal uterine bleeding Hypertensive urgency Anemia Depression Anxiety Fibromyalgia Lupus Family History Family History Mother Hypertension Type 2 diabetes mellitus Lupus Arthritis Maternal Grandmother Hypertension Type 2 diabetes mellitus Arthritis Surgical History Surgical History Hx of hernia repair Social History Social History Household Members: Spouse and Children Housing: Apartment Do you presently have visiting nurse or other home services: No Alcohol intake: former Comment: achy-lupus exacerbation Patient Tobacco Use Status: Current everyday Tobacco user Tobacco use type: Cigarette Cigarette Packs Per Day: 0.5 Years Smoked: 7 Smoked in Last 30 Days: No Second Hand Smoke Exposure: No Use of substances other than those prescribed or required for medical reasons: Yes Substance Use Type: Marijuana Substance Use Frequency: Occasionally Last Used Substance: Unknown Any prior treatment program specific to substance use: No Advance Directives: Yes Advance Directives on File: Yes Advance Directives Date on File: 04/03/22 Patient : No service: No Current occupational status: disabled Meds Allergies Allergy/AdvReac Type Severity Reaction Status Date / Time mycophenolate mofetil AdvReac Intermediate GI upset Verified 03/19/25 18:18 Active Medications: Current Medications Acetaminophen (Acetaminophen 325 Mg Tablet) 975 mg PO Q6H PRN PRN Reason: Pain, Mild 1-3,fever,headache Calcium Carbonate (Calcium Carbonate 750 Mg Tab.Chew) 750 mg PO Q4H PRN PRN Reason: Heartburn Hydromorphone HCl (Hydromorphone Hcl 1 Mg/Ml Syringe) 1 mg IVPUSH Q3H PRN; Protocol PRN Reason: Pain, Severe (Pain Scale 7-10) Last Admin: 03/20/25 09:39 Dose: 1 mg Daptomycin 340 mg/ Sodium (Chloride) 56.8 mls @ 100 mls/hr IV TuTh@2000 GERARDO Daptomycin 500 mg/ Sodium (Chloride) 60 mls @ 100 mls/hr IV Sa@2000 GERARDO Magnesium Hydroxide (Milk Of Magnesia 30 Ml Oral.Susp) 30 ml PO DAILY PRN PRN Reason: Constipation Melatonin (Melatonin 3 Mg Tablet) 6 mg PO BEDTIME PRN PRN Reason: Insomnia Ondansetron HCl (Ondansetron Hcl 4 Mg/2 Ml Vial) 4 mg IVPUSH Q8H PRN PRN Reason: Nausea and Vomiting Oxycodone HCl (Oxycodone Hcl Immed Release 5 Mg Tablet) 5 mg PO Q6H PRN PRN Reason: Pain, Moderate(Pain Scale 4-6) Last Admin: 03/20/25 07:59 Dose: 5 mg Pantoprazole Sodium (Pantoprazole Sodium 40 Mg/10 Ml Vial) 40 mg IVPUSH BID@0630,1630 GERARDO Last Admin: 03/20/25 06:29 Dose: 40 mg Sodium Chloride (0.9 % Sodium Chloride Flush 3 Ml Syringe) 3 ml IVFLUSH QSHIKATIE [facility] Last Admin: 03/20/25 07:59 Dose: 3 ml Home Medications ?Medication ?Instructions ?Recorded ?Confirmed ?Last Taken ?Type acetaminophen 650 mg 1,300 mg PO Q8H PRN pain 03/0903/20/25 Unknown History tablet,extended release diclofenac sodium 1.5 % topical 40 drp topical QID PRN legs 03/20/25 03/20/25 Unknown History drops duloxetine 30 mg capsule,delayed 60 mg PO DAILY 03/20/25 03/19/25 History release prednisone 10 mg tablet 60 mg PO DAILY 03/20/2503/0903/19/25 History Physical Exam 2 Vital Signs: Vital Signs: Last Vital Signs Temp 98.6 F 03/20/25 08:15 Pulse 64 03/20/25 08:15 Resp 15 03/20/25 08:15 BP 180/105 H 03/20/25 08:15 Pulse Ox 100 03/20/25 08:15 O2 Del Method Room Air 03/20/25 08:15 BMI result Body Mass Index 21.6 Const: General: ill appearing chronically; No confusion Nutritional Appearance: average body habitus Orientation/consciousness: No confusion L imitations: no limitations HEENT: Head: Yes normal to inspection Ears: hearing grossly normal bilaterally Mouth: Normal oral and palatal mucosa present Eyes: Sclerae: sclerae normal Pupils: Equal, round and reactive pupils present Neck: Neck: Yes normal visual inspection Chest: Chest palpation & inspection: normal inspection of the chest Resp: Effort & Inspection: normal respiratory effort Auscultation: clear to auscultation bilaterally Cardio: Palpation: normal PMI Rate: regular rate Rhythm: regular rhythm Heart sounds: S1 normal heart sound present, S2 normal heart sound present and no murmurs GI: Palpation (GI): Soft to palpation, nontender and No hepatosplenomegaly present Auscultation: normal bowel sounds Rectal Exam - Female: deferred Skin: General skin exam: no rashes or lesions noted Neuro: General: No confusion Cranial nerves: Yes Equal, round and reactive pupils present Psych: Appearance: grossly normal Mental Status: mental status grossly normal Results Labs 03/20/25 05:45 03/20/25 05:45 Labs: Short CBC 03/19/25 03/20/25 03/20/25 Range/Units 18:30 01:57 05:45 WBC 13.1 H 9.8 (4.8-10.8) X10*3/uL Hgb 6.3 L* 9.0 L D 8.9 L (12.0-16.0) g/dl Hct 19.6 L* 27.0 L D 26.2 L (37.0-47.0) % Plt Count 253 D 219 (160-400) X10*3/uL BMP 03/19/25 03/20/25 18:30 05:45 Sodium 141 142 Potassium 3.7 D 3.5 Chloride 104 105 Carbon Dioxide 26 29 BUN 9 15 Creatinine 0.77 0.97 Calcium 8.0 L 8.1 L Liver Function 03/19/25 Range/Units 18:30 Total Bilirubin 0.2 (0.0-1.0) mg/dL AST 20 (5-31) U/L ALT 9 (0-31) U/L Alkaline Phosphatase 55 (39-117) U/L Albumin 2.9 L (3.5-5.0) g/dL Assessment and Plan (1) GI bleed: Status: Acute Plan 29 YF with SLE complicated by lupus nephritis (on 10mg prednisone), history of pericardial effusion, hypertension, anemia, fibromyalgia, anxiety and depression, recently discharged on 03/08/2025 after a 25 day hospitalization for acute respiratory failure with hypoxia secondary to pneumonia requiring an ICU stay complicated by cavitary pneumonia, acute renal failure, acute right jugular vein clot, and severe sepsis due to polymicrobial bacteremia. Pt was seen at [facility] on 03/19/25 after going to dialysis and was found to have severe anemia with a hemoglobin of 6.3. She reported weakness and fatigue after having dialysis yesterday and also complained of bilateral lower extremity pain for the past week or so, slightly improving. She noted black stools for a few days after she was discharged from the hospital - lately stools have been dark brown in color. In the ED. pt was transfused 2 units of PRBC with improvement in H&H to 9 & 27. Patient is on Eliquis for right jugular vein clot and last dose of Eliquis was on 03/19/2025 around 09:00 Worsening anemia likely related to GI blood loss from GAVE noted on previous EGD RECOMMENDATIONS: 1. Agree with IV PPI and antiemetics 2. Monitor CBC daily post blood transfusion and transfuse prn 3. Advise evaluation with repeat EGD - pt placed on the add on list for EGD on 03/21/2025. Procedures Date of Service Date of Service: 03/20/25
--- NOTE | 2025-03-20 14:46 | PM.HEMONCCN ---
Subjective - Subjective Chief complaint: Consult for: Normochromic normocytic anemia. Patient: new to practice Consult date: 03/20/25 Requesting Physician: Dr. Tierney Saenz. Primary Care Provider: Unknown Physician Family Provider: Unknown Medical Summary: DIAGNOSIS: NORMOCHROMIC NORMOCYTIC ANEMIA. 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 She was recently discharged on 03/08/2025 after a 25 day hospitalization for acute respiratory failure with hypoxia secondary to pneumonia requiring an ICU stay complicated by cavitary pneumonia, acute renal failure, acute right jugular vein clot, and severe sepsis due to polymicrobial bacteremia. She presented to the ED after going to dialysis and was found to have severe anemia with a hemoglobin of 6.3. The patient reports weakness and fatigue after having dialysis today. She is receiving 2 units of PRBC in the ED. She also complains of bilateral lower extremity pain for the past week or so, slightly improving. She has started to produce urine as well. She denies any melena, rectal bleeding or hematemesis. She also denies any nausea, vomiting or abdominal pain. No shortness a breath, chest pain or URI symptoms. Review of Systems Constitutional: Constitutional: Reports body ache(s), Denies chills, Reports fatigue, Denies fever(s), Denies headache(s) and Reports lethargy Eyes: Eyes: Denies change in vision ENT: Denies headache(s), Denies nasal congestion and Denies sore throat Cardiovascular: Cardiovascular: Denies chest pain, Denies rapid heart rate, Denies leg edema and Denies dyspnea Respiratory: Respiratory: Denies chest congestion, Denies cough, Denies dyspnea and Denies wheezing Gastrointestinal: Gastrointestinal: Denies abdominal pain, Denies melena, Denies hematochezia, Denies diarrhea, Denies nausea, Denies vomiting and Denies hematemesis Genitourinary: Genitourinary: Denies dysuria Musculoskeletal: Comments: bilateral leg pain Integumentary/Breasts: Skin/Breast: Denies rash Neurologic: Denies confusion and Denies headache(s) Psychiatric: Psychiatric: Denies confusion Endocrine: Endocrine: Reports fatigue Hematologic/Lymphatic: Hematologic/Lymphatic: Denies easy bleeding and Denies easy bruising Allergic/Immunologic: Allergic/Immunologic: Denies wheezing Medical History:) Anemia At risk for increased anxiety Thrombocytopenia Pulmonary embolism Bicytopenia Infective endocarditis Acute hypoxic respiratory failure Lupus hepatitis Right 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 Lupus nephritis. Pericardial effusion Essential hypertension Rash Acute on chronic anemia Abnormal uterine bleeding Hypertensive urgency Anemia Depression Anxiety Fibromyalgia Lupus Functional capacity: uses cane/walker. Surgical History: Hx of hernia repair Family History:) Mother Hypertension Type 2 diabetes mellitus Lupus Arthritis Maternal Grandmother Hypertension Type 2 diabetes mellitus Arthritis Social History: Household Members: Spouse and Children Housing: Apartment Do you presently have visiting nurse or other home services: No Alcohol intake: former Comment: achy-lupus exacerbation Patient Tobacco Use Status: Current everyday Tobacco user Tobacco use type: Cigarette Cigarette Packs Per Day: 0.5 Years Smoked: 7 Smoked in Last 30 Days: No Second Hand Smoke Exposure: No Use of substances other than those prescribed or required for medical reasons: Yes Review of Systems - Constitutional Reports system reviewed and no additional complaints, except as documented, Reports anorexia, Reports lack of energy, Reports malaise, Reports weakness, Reports weight loss - Eyes Reports system reviewed and no additional complaints, except as documented - ENT Reports system reviewed and no additional complaints, except as documented - Cardiovascular Reports system reviewed and no additional complaints, except as documented - Respiratory Reports no additional respiratory complaints - Gastrointestinal Reports system reviewed and no additional complaints, except as documented - Genitourinary Reports no additional female genitourinary complaints - Musculoskeletal Reports system reviewed and no additional complaints, except as documented - Integumentary/Breasts Skin/Breast: Reports no additional skin complaints - Neurologic Reports weakness, Denies confusion, Denies headache(s) - Psychiatric Reports system reviewed and no additional complaints, except as documented - Endocrine Reports no additional endocrine complaints - Hematologic/Lymphatic Reports system reviewed and no additional complaints, except as documented - Allergic/Immunologic Reports system reviewed and no additional complaints, except as documented Oncology Screenings - ECOG Performance Status ECOG Performance Status: 1 [facility] Medical History: Medical History (Last Reviewed 03/21/25 @ 12:31 by Crys Cottrell MD) Abnormal uterine bleeding Acute hypoxic respiratory failure Acute on chronic anemia Anemia Anemia Anxiety At risk for increased anxiety Bicytopenia CKD (chronic kidney disease) stage 3, GFR 30-59 ml/min Depression DVT (deep venous thrombosis) Essential hypertension Fibromyalgia Hypertensive urgency Infective endocarditis [facility] (current) use of immunosuppressive biologic Lupus Lupus hepatitis Lupus nephritis Normochromic normocytic anemia Pericardial effusion Pericarditis Pulmonary embolism Rash Right lower lobe pneumonia Systemic lupus erythematosus Thrombocytopenia Functional capacity: uses cane/walker Patient : No Family History: Family History (Last Reviewed 04/01/25 @ 09:45 by Gaby Canales MA) Mother Hypertension Type 2 diabetes mellitus Lupus Arthritis Maternal Grandmother Hypertension Type 2 diabetes mellitus Arthritis Surgical History: Surgical History (Last Reviewed 04/01/25 @ 09:45 by Gaby Canales MA) Hx of hernia repair Social History: Social History (Last Reviewed 04/01/25 @ 09:45 by Gaby Canales MA) Living Situation History: Household Members: Spouse Household Members: Children Housing: Apartment Do you presently have visiting nurse or other home services: Yes Tobacco History: Patient Tobacco Use Status: Current everyday Tobacco Tobacco use type: Cigarette Cigarette Packs Per Day: 0.5 Cigarettes Per Day: 3 Years Smoked: 7 Second Hand Smoke Exposure: Yes Substance Use History: Substance Use Type: Marijuana Advance Directives: Advance Directives Date on File: 04/03/22 Occupation Assessmet: service: No Current occupational status: disabled Home Medications and Allergies Current Medications: Current Medications Acetaminophen (Acetaminophen 325 Mg Tablet) 975 mg PO Q6H PRN PRN Reason: Pain, Mild 1-3,fever,headache Amlodipine Besylate (Amlodipine Besylate 5 Mg Tablet) 5 mg PO DAILY [facility]; Protocol Last Admin: 03/20/25 11:07 Dose: 5 mg Calcium Carbonate (Calcium Carbonate 750 Mg Tab.Chew) 750 mg PO Q4H PRN PRN Reason: Heartburn Duloxetine HCl (Duloxetine Hcl 60 Mg Capsule.Dr) 60 mg PO DAILY [facility] Last Admin: 03/20/25 11:07 Dose: 60 mg Gabapentin (Gabapentin 300 Mg Capsule) 300 mg PO MoWeFr@1800 [facility] Hydromorphone HCl (Hydromorphone Hcl 1 Mg/Ml Syringe) 1 mg IVPUSH Q3H PRN; Protocol PRN Reason: Pain, Severe (Pain Scale 7-10) Last Admin: 03/20/25 13:06 Dose: 1 mg Hydromorphone HCl (Hydromorphone Hcl 2 Mg Tablet) 2 mg PO Q6H PRN PRN Reason: Pain, Moderate(Pain Scale 4-6) Daptomycin 340 mg/ Sodium (Chloride) 56.8 mls @ 100 mls/hr IV TuTh@1999 [facility] Daptomycin 500 mg/ Sodium (Chloride) 60 mls @ 100 mls/hr IV Sa@2000 [facility] Labetalol HCl (Labetalol Hcl 100 Mg Tablet) 100 mg PO TID [facility]; Protocol Last Admin: 03/20/25 11:07 Dose: 100 mg Magnesium Hydroxide (Milk Of Magnesia 30 Ml Oral.Susp) 30 ml PO DAILY PRN PRN Reason: Constipation Melatonin (Melatonin 3 Mg Tablet) 6 mg PO BEDTIME PRN PRN Reason: Insomnia Ondansetron HCl (Ondansetron Hcl 4 Mg/2 Ml Vial) 4 mg IVPUSH Q8H PRN PRN Reason: Nausea and Vomiting Oxycodone HCl (Oxycodone Hcl Immed Release 5 Mg Tablet) 5 mg PO Q6H PRN PRN Reason: Pain, Moderate(Pain Scale 4-6) Last Admin: 03/20/25 07:59 Dose: 5 mg Pantoprazole Sodium (Pantoprazole Sodium 40 Mg/10 Ml Vial) 40 mg IVPUSH BID@0630,1630 [facility] Last Admin: 03/20/25 06:29 Dose: 40 mg Prednisone (Prednisone 20 Mg Tablet) 40 mg PO DAILY [facility] Last Admin: 03/20/25 11:10 Dose: 40 mg Sodium Bicarbonate (Sodium Bicarbonate 650 Mg Tablet) 650 mg PO BID [facility] Last Admin: 03/20/25 11:07 Dose: 650 mg Sodium Chloride (0.9 % Sodium Chloride Flush 3 Ml Syringe) 3 ml IVFLUSH QSHIFT [facility] Last Admin: 03/20/25 07:59 Dose: 3 ml Sucralfate (Sucralfate 1 Gm Tablet) [facility] Medications ?Medication ?Instructions ?Recorded ?Confirmed ?Type acetaminophen 650 mg 1,300 mg PO Q8H PRN pain 03/20/25 03/20/25 History tablet,extended release diclofenac sodium 1.5 % topical 40 drp topical QID PRN legs 03/20/25 03/20/25 History drops duloxetine 30 mg capsule,delayed 60 mg PO DAILY 03/20/25 03/20/25 History release prednisone 10 mg tablet 60 mg PO DAILY 03/20/25 03/20/25 History Allergies Allergy/AdvReac Type Severity Reaction Status Date / Time mycophenolate mofetil AdvReac Intermediate GI upset Verified 04/01/25 09:48 Physical Exam Vital signs: Vital Signs Temp 98.2 F 03/20/25 13:01 Pulse 78 03/20/25 13:01 Resp 14 03/20/25 13:01 BP 179/107 H 03/20/25 13:05 Pulse Ox 100 03/20/25 13:01 O2 Del Method Room Air 03/20/25 13:01 Intake & Output 03/19/25 03/20/25 03/20/25 18:59 06:59 18:59 Intake Total 700 / 700 Balance 700 / 700 Intake: Intake (Blood Product) Amount 700 / 700 Red Blood Cells (E0336) Unit 350 / 350 [id number] Red Blood Cells (E0336) Unit 350 / 350 [id number] Other: Weight 62.5 kg Weight 62.5 kg - Constitutional Present: mild distress - Routine HEENT Exam Head: Present: normal inspection, normocephalic Eye: Present: normal appearance ENT: Present: mucous membranes moist - Routine Neck Exam Present: supple - Routine Respiratory Exam Present: decreased breath sounds, CTAB - Routine Cardiovascular Exam Cardiovascular: Present: RRR, S1, S2 - Routine Abdominal Exam Present: nontender - Routine Extremities Exam Present: nontender Hem/Onc Consult Result - Labs CBC & Chem 7: 03/22/25 06:51 03/23/25 10:35 Labs: Short CBC 03/19/25 03/20/25 03/20/25 Range/Units 18:30 01:57 05:45 WBC 13.1 H 9.8 (4.8-10.8) X10*3/uL Hgb 6.3 L* 9.0 L D 8.9 L (12.0-16.0) g/dl Hct 19.6 L* 27.0 L D 26.2 L (37.0-47.0) % Plt Count 253 D 219 (160-400) X10*3/uL BMP 03/19/25 03/20/25 18:30 05:45 Sodium 141 142 Potassium 3.7 D 3.5 Chloride 104 105 Carbon Dioxide 26 29 BUN 9 15 Creatinine 0.77 0.97 Calcium 8.0 L 8.1 L Liver Function 03/19/25 Range/Units 18:30 Total Bilirubin 0.2 (0.0-1.0) mg/dL AST 20 (5-31) U/L ALT 9 (0-31) U/L Alkaline Phosphatase 55 (39-117) U/L Albumin 2.9 L (3.5-5.0) g/dL Assessment and Plan Patient Active problem list reviewed?: Yes (1) Normochromic normocytic anemia Status: Inactive Assessment and plan: 29-year-old lady with history of end-stage renal disease secondary to lupus nephritis. Maintained on dialysis. She presented with weakness and fatigue. Noted to have severe anemia. 03/19: CBC: WBC 13, HGB 6.3, HCT 19.6, PLT 253. Iron studies : Anemia is normochromic normocytic. Likely multifactorial. She has recent history of GI bleeding. 03/03/[address] CEDENO: Esophagus: GE junction at 37 cm, diaphragm hiatus at 40 cm, consistent with 3 cm hiatal hernia. White spots noted thru out the esophagus consistent with candidiasis. Stomach: patchy erythema with few erosions and red streaks in the antrum suggestive of GAVE . Biopsies were obtained. Grade 2 flap valve on retroflexed examination of the cardia. Close to the pyloric outlet there was a spot which continued to ooze blood. A clip was applied but it kept bleeding so APC was used and then hemospray with good effect Duodenum: Normal bulb and descending duodenum, DIFFERENTIAL DIAGNOSIS: 1. ANEMIA OF CHRONIC DISEASE: Related to stage 5 kidney disease. Erythropoietin deficiency. 2. IRON DEFICIENCY ANEMIA: Can be super added. Her stool is guaiac positive. She was on anticoagulation with Eliquis. Recent history of GAVE. 3. HEMOLYTIC ANEMIA: Can be seen with SLE. 4. B12/FOLATE DEFICIENCY: Is in the differential. 5. UNDERLYING MYELO INFILTRATIVE DISORDER: Myelodysplastic syndrome, lymphoma or multiple myeloma. Not likely in this young lady with other explanation for the anemia. He did receive a couple of units of packed RBC. PLAN: Will proceed with further evaluation. Check ferritin: 786. Check B12 and folate levels: 277/9.8. Check hemolytic screen: LDH: 394. Check SIEP:Normal Immunoglobulins. Will monitor her blood count for now. Will arrange for Procrit therapy if the above workup is nonrevealing. Thank you for the consult, Will follow along with you, CC: Tierney Saenz. (2) DVT (deep venous thrombosis) Status: Inactive Assessment and plan: 29-year-old lady with recent DVT. This involved right IJ DVT related to dialysis catheter. The catheter has been removed. Chest CTA 03/04/25: No PE but VQ scan 03/09?+ PEE PLAN: Three months of anticoagulation recommended. Nephrology was consulted about dosing of Eliquis in the setting of renal failure/hemodialysis. She was on Eliquis 2.5 mg BiD. Recently stopped. Vascular surgery consult for possible filter. Thank you for consult, - Time Spent With Patient Time Spent with Patient (in minutes): 30
[2025-03-20 15:55] LABS: Ferritin 786 ng/mL (10-122)
[2025-03-21] VITALS (9 sets, daily range): BP systolic 148–192; BP diastolic 86–98; PULSE 64–86; RESP 16–20; TEMP 36.1–37.2; O2SAT 96–100
[2025-03-21] MEDS: 0.9 % Sodium Chloride Flush 3 ML SYRINGE IVFLUSH ×3 (00:28→15:13)
--- NOTE | 2025-03-21 06:35 | PC.NURSE ---
Patient's BP 180/98, provider notified. Rechecked was 180/96. Patient c/o 05/25 pain medicated per NOV. Patient resting at present time , will continue to monitor.
[2025-03-21 06:57] LABS: Anion Gap 12 (12-20); Blood Urea Nitrogen 20 mg/dL (9-16); Calcium 8.4 mg/dL (8.4-10.2); Carbon Dioxide 28 mmol/L (22-29); Chloride 104 mmol/L (96-108); Creatinine Clr Calc Pharmacy 73.4; Estimated Glomerular Filt Rate 59; Potassium 3.5 mmol/L (3.3-5.1); Sodium 140 mmol/L (135-145)
[2025-03-21 06:58] LABS: Hematocrit 26.1 % (37.0-47.0); Hemoglobin 8.8 g/dl (12.0-16.0); Mean Corpuscular HGB Conc 33.7 g/dl (31.0-35.0); Mean Corpuscular Hemoglobin 31.7 pg (27.0-33.0); Mean Corpuscular Volume 93.9 fL (80.0-98.0); NRBC Abs Auto 0.020 X10*3/uL (0.0-0.012); NRBC Pct Auto 0.2 /100WBC (0.0-0.2); Platelet Count 188 X10*3/uL (160-400); Red Blood Count 2.78 X10*6/uL (4.20-5.50); White Blood Count 9.2 X10*3/uL (4.8-10.8)
--- NOTE | 2025-03-21 09:41 | MHC.CM.PN ---
IMM 03/21. Pt readmitted. Pt lives at home with her and 2 children, ages 11 & 14. Pt active with [facility], and goes to at [facility] in [place] on //Fri. Pt uses a walked, shower chair, and a raised toilet seat. Pts family will transport her home at discharge. HCP on file and verified. PCP: Dr. Vic Pompa
--- NOTE | 2025-03-21 11:09 | MHC.SHP ---
Pre-Procedural Eval Section A - 24 Hr Update-Section A only Date of Service: 03/21/25 The patient is an INPATIENT: Yes Changes since office visit: Yes New Medical Problems, Yes Changes in Medication and Yes Patient answered all questions; No Cold of Flu in the past 2 weeks The patient has been examined within 24 hours of the surgical procedure. The History & Physical has been completed within 30 days and I have reviewed it.: Yes Section B - Complete if H&P > 30 days Chief Complaint: anemia Allergies: Allergies Allergy/AdvReac Type Severity Reaction Status Date / Time mycophenolate mofetil AdvReac Intermediate GI upset Verified 03/19/25 18:18 Plan Diagnosis/Plan: Unchanged I have reviewed the history and physical and performed a pertinent physical examination on my patient. No changes have occurred unless specified. Time Spent With Patient Time: Total time managing care of this patient today ____ minutes.
--- NOTE | 2025-03-21 11:14 | PC.NURSE ---
20g right hand patnet no leaking
--- NOTE | 2025-03-21 12:28 | P.PNIM_ITS ---
Subjective Subjective Date of Service: 03/21/25 Interval History: f/u on anemai,+FOBT no active, overall calm, no complaint EGD planned for today\ Physical Exam 2 Vital Signs: Vital Signs: Last Vital Signs Temp 98.9 F 03/21/25 11:01 Pulse 76 03/21/25 11:01 Resp 16 03/21/25 11:01 BP 167/98 H 03/21/25 11:01 Pulse Ox 100 03/21/25 11:01 O2 Del Method Room Air 03/21/25 11:01 BMI result Body Mass Index 21.6 Const: Other: General: AO X 3, no acute distress Resp: CTA bilateral CVS: S1,S2,RRR GI: +BS, NT, no distention Skin: No rash Neuro: motor grossly intact Psych: appropriate affect Objective Data Active Medications Acetaminophen (Acetaminophen 325 Mg Tablet) 975 mg PO Q6H PRN PRN Reason: Pain, Mild 1-3,fever,headache Amlodipine Besylate (Amlodipine Besylate 5 Mg Tablet) 5 mg PO DAILY [facility]; Protocol Last Admin: 03/21/25 07:35 Dose: 5 mg Documented By: JELENA Calcium Carbonate (Calcium Carbonate 750 Mg Tab.Chew) 750 mg PO Q4H PRN PRN Reason: Heartburn Duloxetine HCl (Duloxetine Hcl 60 Mg Capsule.Dr) 60 mg PO DAILY [facility] Last Admin: 03/21/25 07:35 Dose: 60 mg Documented By: JELENA Gabapentin (Gabapentin 300 Mg Capsule) 300 mg PO MoWeFr@1800 [facility] Hydromorphone HCl (Hydromorphone Hcl 1 Mg/Ml Syringe) 1 mg IVPUSH Q3H PRN; Protocol PRN Reason: Pain, Severe (Pain Scale 7-10) Last Admin: 03/21/25 07:53 Dose: 1 mg Documented By: JELENA Hydromorphone HCl (Hydromorphone Hcl 2 Mg Tablet) 2 mg PO Q6H PRN PRN Reason: Pain, Moderate(Pain Scale 4-6) Last Admin: 03/21/25 03:27 Dose: 2 mg Documented By: ZORAN Daptomycin 340 mg/ Sodium (Chloride) 56.8 mls @ 100 mls/hr IV TuTh@2000 [facility] Daptomycin 500 mg/ Sodium (Chloride) 60 mls @ 100 mls/hr IV Sa@1999 [facility] Labetalol HCl (Labetalol Hcl 100 Mg Tablet) 100 mg PO TID [facility]; Protocol Last Admin: 03/21/25 07:36 Dose: 100 mg Documented By: JELENA Magnesium Hydroxide (Milk Of Magnesia 30 Ml Oral.Susp) 30 ml PO DAILY PRN PRN Reason: Constipation Melatonin (Melatonin 3 Mg Tablet) 6 mg PO BEDTIME PRN PRN Reason: Insomnia Ondansetron HCl (Ondansetron Hcl 4 Mg/2 Ml Vial) 4 mg IVPUSH Q8H PRN PRN Reason: Nausea and Vomiting Oxycodone HCl (Oxycodone Hcl Immed Release 5 Mg Tablet) 5 mg PO Q6H PRN PRN Reason: Pain, Moderate(Pain Scale 4-6) Last Admin: 03/20/25 15:09 Dose: 5 mg Documented By: DEANNE Pantoprazole Sodium (Pantoprazole Sodium 40 Mg/10 Ml Vial) 40 mg IVPUSH BID@0630,1630 [facility] Last Admin: 03/21/25 05:53 Dose: 40 mg Documented By: ZORAN Prednisone (Prednisone 20 Mg Tablet) 60 mg PO DAILY [facility] Last Admin: 03/21/25 10:39 Dose: 60 mg Documented By: JELENA Sodium Bicarbonate (Sodium Bicarbonate 650 Mg Tablet) 650 mg PO BID [facility] Last Admin: 03/21/25 07:35 Dose: 650 mg Documented By: JELENA Sodium Chloride (0.9 % Sodium Chloride Flush 3 Ml Syringe) 3 ml IVFLUSH QSHIFT [facility] Last Admin: 03/21/25 07:36 Dose: 3 ml Documented By: JELENA Sucralfate (Sucralfate 1 Gm Tablet) 1 gm PO BIDAC [facility] Last Admin: 03/21/25 07:35 Dose: 1 gm Documented By: JELENA Labs 03/21/25 06:11 03/21/25 06:11 Labs: Laboratory Results - last 24 hr 03/19/25 03/21/25 03/21/25 18:30 06:11 10:58 MCV 93.9 MCH 31.7 MCHC 33.7 RDW 17.0 H Plt Count 188 MPV 8.4 L Absolute Nucleated RBC 0.020 H Nucleated RBC % (auto) 0.2 Anion Gap 12 Estim Creat Clear Calc 73.4 Estimated GFR 59 Random Glucose 75 Calcium 8.4 Ferritin 786 H Lactate Dehydrogenase 394 H Beta HCG, Quant < 2 Assessment and Plan (1) Anemia: Status: Acute (2) CKD (chronic kidney disease) stage 3, GFR 30-59 ml/min: Status: Acute (3) Acute kidney injury superimposed on chronic kidney disease: Status: Acute (4) ESRD (end stage renal disease) on dialysis: Status: Acute (5) Acute renal failure (ARF): Status: Acute Plan Patient is a 29-year-old female with a past medical history 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 acute on chronic normocytic anemia, +FOBT, h/o GAVE and on eliquis transfused 2 units, hgb 6 to 8.8 hold eliquis IV PPI For EGD today follow cbc Acute right jugular vein clot, provoked, in location of previous IV, will need 3 months of AC upon discharge, CTA negative for PE chest CTA 03/04/25, no PE but VQ scan 03/09?+ PEE Vascular surgery consult repeat US ESRD on HD --She has made complete renal fecovery, creatine is now normal. No further dialysis 24 hour urine and will likely remove dialysis line recent polymicrobial bacteremia - e coli, Klebsiella, MRSA continue daptomycin dosing 340 mg every Friday and , end date 04/04/2025 and daptomycin 500 mg every Friday end date 04/04/2025. Lupus with nephritis continue prednisone but reduce to 60 mg daily, potentially can cause gastritis HTN continue home meds hx pericardial effusion - continue home meds fibromyalgia continue home meds full code VTE prophy: pneumoboots Patient with acute on chronic normocytic anemia with positive fecal occult blood test, requiring admission for at least 2 midnight stay for blood transfusion, monitoring and specialist consultation. Quality Stroke Does the patient have a stroke diagnosis?: No VTE Prior VTE?: No VTE Risk Level:: Medical - moderate - high VTE Device Contraindication: N/A - Device Ordered VTE Drug Contraindication: Treatment Not Indicated
--- NOTE | 2025-03-21 12:31 | HO.ANESPROP2 ---
[facility] Active Problems Active Problems: All Active Problems (Updated 03/20/25 @ 15:04 by Benton Henriquez MD) DVT (deep venous thrombosis) (Acute) Normochromic normocytic anemia (Acute) ESRD (end stage renal disease) on dialysis (Acute) Weakness (Acute) GI bleed (Acute) Anemia (Acute) Acute renal failure (ARF) (Acute) Acute kidney injury superimposed on chronic kidney disease (Acute) Long-term use of hydroxychloroquine (Acute) Depression (Acute) CKD (chronic kidney disease) stage 3, GFR 30-59 ml/min (Acute) Rash (Acute) COVID-19 (Acute) Past Medical History Medical History Anemia At risk for increased anxiety Thrombocytopenia Pulmonary embolism Bicytopenia Infective endocarditis Acute hypoxic respiratory failure Lupus hepatitis Right lower lobe pneumonia [facility] (current) use of immunosuppressive biologic Systemic lupus erythematosus Pericarditis Lupus nephritis Pericardial effusion Essential hypertension Rash Acute on chronic anemia Abnormal uterine bleeding Hypertensive urgency Anemia Depression Anxiety Fibromyalgia Lupus Functional capacity: uses cane/walker Family History Family History Mother Hypertension Type 2 diabetes mellitus Lupus Arthritis Maternal Grandmother Hypertension Type 2 diabetes mellitus Arthritis Surgical History Surgical History Hx of hernia repair History of Problems with Anesthesia: No Social History Social History Household Members: Spouse and Children Housing: Apartment Do you presently have visiting nurse or other home services: Yes Alcohol intake: former Comment: achy-lupus exacerbation Patient Tobacco Use Status: Current everyday Tobacco user Tobacco use type: Cigarette Cigarette Packs Per Day: 0.5 Cigarettes Per Day: 3 Years Smoked: 7 Second Hand Smoke Exposure: Yes Substance Use Type: Marijuana Advance Directives Date on File: 04/03/22 service: No Current occupational status: disabled Meds Allergies Allergy/AdvReac Type Severity Reaction Status Date / Time mycophenolate mofetil AdvReac Intermediate GI upset Verified 03/19/25 18:18 Active Medications: Current Medications Acetaminophen (Acetaminophen 325 Mg Tablet) 975 mg PO Q6H PRN PRN Reason: Pain, Mild 1-3,fever,headache Amlodipine Besylate (Amlodipine Besylate 5 Mg Tablet) 5 mg PO DAILY [facility]; Protocol Last Admin: 03/21/25 07:35 Dose: 5 mg Calcium Carbonate (Calcium Carbonate 750 Mg Tab.Chew) 750 mg PO Q4H PRN PRN Reason: Heartburn Duloxetine HCl (Duloxetine Hcl 60 Mg Capsule.Dr) 60 mg PO DAILY [facility] Last Admin: 03/21/25 07:35 Dose: 60 mg Gabapentin (Gabapentin 300 Mg Capsule) 300 mg PO MoWeFr@1800 [facility] Hydromorphone HCl (Hydromorphone Hcl 2 Mg Tablet) 2 mg PO Q6H PRN PRN Reason: Pain, Moderate(Pain Scale 4-6) Last Admin: 03/21/25 03:27 Dose: 2 mg Hydromorphone HCl (Hydromorphone Hcl 1 Mg/Ml Syringe) 0.5 mg IVPUSH Q4H PRN; Protocol PRN Reason: Pain, Severe (Pain Scale 7-10) Daptomycin 340 mg/ Sodium (Chloride) 56.8 mls @ 100 mls/hr IV TuTh@2000 [facility] Daptomycin 500 mg/ Sodium (Chloride) 60 mls @ 100 mls/hr IV Sa@2000 [facility] Labetalol HCl (Labetalol Hcl 100 Mg Tablet) 100 mg PO TID [facility]; Protocol Last Admin: 03/21/25 07:36 Dose: 100 mg Magnesium Hydroxide (Milk Of Magnesia 30 Ml Oral.Susp) 30 ml PO DAILY PRN PRN Reason: Constipation Melatonin (Melatonin 3 Mg Tablet) 6 mg PO BEDTIME PRN PRN Reason: Insomnia Ondansetron HCl (Ondansetron Hcl 4 Mg/2 Ml Vial) 4 mg IVPUSH Q8H PRN PRN Reason: Nausea and Vomiting Oxycodone HCl (Oxycodone Hcl Immed Release 5 Mg Tablet) 5 mg PO Q6H PRN PRN Reason: Pain, Moderate(Pain Scale 4-6) Last Admin: 03/20/25 15:09 Dose: 5 mg Pantoprazole Sodium (Pantoprazole Sodium 40 Mg/10 Ml Vial) 40 mg IVPUSH BID@0630,1630 [facility] Last Admin: 03/21/25 05:53 Dose: 40 mg Prednisone (Prednisone 20 Mg Tablet) 60 mg PO DAILY [facility] Last Admin: 03/21/25 10:39 Dose: 60 mg Sodium Bicarbonate (Sodium Bicarbonate 650 Mg Tablet) 650 mg PO BID [facility] Last Admin: 03/21/25 07:35 Dose: 650 mg Sodium Chloride (0.9 % Sodium Chloride Flush 3 Ml Syringe) 3 ml IVFLUSH QSHIFT [facility] Last Admin: 03/21/25 07:36 Dose: 3 ml Sucralfate (Sucralfate 1 Gm Tablet) 1 gm PO BIDAC [facility] Last Admin: 03/21/25 07:35 Dose: 1 gm Home Medications ?Medication ?Instructions ?Recorded ?Confirmed ?Last Taken ?Type acetaminophen 650 mg 1,300 mg PO Q8H PRN pain 03/20/25 03/20/25 Unknown History tablet,extended release diclofenac sodium 1.5 % topical 40 drp topical QID PRN legs 03/20/25 03/20/25 Unknown History drops duloxetine 30 mg capsule,delayed 60 mg PO DAILY 03/20/25 03/20/25 03/19/25 History release prednisone 10 mg tablet 60 mg PO DAILY 03/20/25 03/20/25 03/19/25 History Exam Height,Weight and Vital Signs: Height 5 ft 7 in Weight 62.5 kg Last Vital Signs Temp 98.9 F 03/21/25 11:01 Pulse 76 03/21/25 11:01 Resp 16 03/21/25 11:01 BP 167/98 H 03/21/25 11:01 Pulse Ox 100 03/21/25 11:01 O2 Del Method Room Air 03/21/25 11:01 Pertinent Lab Results Pertinent Lab Results: Laboratory Tests 03/19/25 03/19/25 03/19/25 18:27 18:30 20:29 WBC 13.1 H RBC 2.01 L Hgb 6.3 L* Hct 19.6 L* MCV 97.5 MCH 31.3 MCHC 32.1 RDW 17.6 H Plt Count 253 D MPV 9.3 L Immature Gran % (Auto) 2.7 H Neut % (Auto) 83.4 H Lymph % (Auto) 11.4 L [place] % (Auto) 2.4 Eos % (Auto) 0.0 Baso % (Auto) 0.1 Lymph # (Auto) 1.5 [place] # (Auto) 0.3 Eos # (Auto) 0.0 Baso # (Auto) 0.0 Abs Immat Gran (auto) 0.35 H Absolute Neuts (auto) 10.9 H Absolute Nucleated RBC 0.050 H Nucleated RBC % (auto) 0.4 H Sodium 141 Potassium 3.7 D Chloride 104 Carbon Dioxide 26 Anion Gap 15 BUN 9 Creatinine 0.77 Estim Creat Clear Calc 102.9 Estimated GFR > 60 Random Glucose 160 H Calcium 8.0 L Magnesium 1.6 Iron 42 TIBC 181 L % Saturation 23 Unsat Iron Binding 139 Ferritin 786 H Total Bilirubin 0.2 AST 20 ALT 9 Alkaline Phosphatase 55 Lactate Dehydrogenase 394 H Total Protein 5.6 L Albumin 2.9 L Beta HCG, Quant Stool Occult Blood POSITIVE Blood Type A Positive Antibody Screen NEGATIVE Crossmatch See Detail 03/20/25 03/20/25 03/21/25 01:57 05:45 06:11 WBC 9.8 9.2 RBC 2.77 L D 2.78 L Hgb 9.0 L D 8.9 L 8.8 L Hct 27.0 L D 26.2 L 26.1 L MCV 94.6 93.9 MCH 32.1 31.7 MCHC 34.0 33.7 RDW 16.8 H 17.0 H Plt Count 219 188 MPV 8.7 L 8.4 L Immature Gran % (Auto) Neut % (Auto) Lymph % (Auto) [place] % (Auto) Eos % (Auto) Baso % (Auto) Lymph # (Auto) [place] # (Auto) Eos # (Auto) Baso # (Auto) Abs Immat Gran (auto) Absolute Neuts (auto) Absolute Nucleated RBC 0.080 H 0.020 H Nucleated RBC % (auto) 0.8 H 0.2 Sodium 142 140 Potassium 3.5 3.5 Chloride 105 104 Carbon Dioxide 29 28 Anion Gap 12 12 BUN 15 20 H Creatinine 0.97 1.08 Estim Creat Clear Calc 81.7 73.4 Estimated GFR > 60 59 Random Glucose 76 75 Calcium 8.1 L 8.4 Magnesium Iron TIBC % Saturation Unsat Iron Binding Ferritin Total Bilirubin AST ALT Alkaline Phosphatase Lactate Dehydrogenase Total Protein Albumin Beta HCG, Quant Stool Occult Blood Blood Type Antibody Screen Crossmatch 03/21/25 10:58 WBC RBC Hgb Hct MCV MCH MCHC RDW Plt Count MPV Immature Gran % (Auto) Neut % (Auto) Lymph % (Auto) [place] % (Auto) Eos % (Auto) Baso % (Auto) Lymph # (Auto) [place] # (Auto) Eos # (Auto) Baso # (Auto) Abs Immat Gran (auto) Absolute Neuts (auto) Absolute Nucleated RBC Nucleated RBC % (auto) Sodium Potassium Chloride Carbon Dioxide Anion Gap BUN Creatinine Estim Creat Clear Calc Estimated GFR Random Glucose Calcium Magnesium Iron TIBC % Saturation Unsat Iron Binding Ferritin Total Bilirubin AST ALT Alkaline Phosphatase Lactate Dehydrogenase Total Protein Albumin Beta HCG, Quant < 2 Stool Occult Blood Blood Type Antibody Screen Crossmatch Airway Mallampati Class: III TM Dist: >3cm Neck ROM: Full Loose/Missing/Broken Teeth: No Heart: RRR Lungs: CTA Assessment and Plan Assessment Anesthesia Assessment: Anesthesia Plan Discussed and Chart Reviewed Final Anesthetic Review History of Problems with Anesthesia: No NPO: Yes ASA Class: III Final Preanesthetic Review: Meds/Allgs Chart Reviewed, Consent Obtained/Reviewed and Anes Risks/Benef Reviewed Patient Risk: Intermediate Procedure Risk: Intermediate Anesthetic Plan Anesthetic Plan: MAC: Disposition: Standard PACU
--- NOTE | 2025-03-21 12:58 | W.PM.OPN ---
Operative Note Operative Note Date of Service: 03/21/25 Narrative: FLEXIBLE TRANSORAL UPPER GASTROINTESTINAL ENDOSCOPY WITH APC OF GAVE Pre-op diagnosis: Anemia, GI bleeding Post-op diagnosis: GAVE, Gastritis, Endoscopist:? Leland Dunn MD Anesthesia:?MAC UPPER ENDOSCOPY Consent: Indications for the procedure and potential complications of bleeding, perforation, reaction to medications and missed diagnosis were discussed with the patient and informed consent was obtained. Instrument: Olympus GIF H 190 mid size upper endoscope Monitoring: Vital signs and clinical assessment, continuous EKG monitoring, Pulse oximetry, Carbon Dioxide monitoring and blood pressure monitoring were done throughout the procedure. Procedure: The patient was placed in the left lateral decubitis position and pre-procedure medications were administered and a bite block was placed. The endoscope was inserted into the mouth and advanced under direct vision to the third part of duodenum. A careful inspection was made as the upper endoscope was withdrawn including a retroflexed examination of the proximal stomach; Findings and interventions are described below. Findings: Larynx: Normal Esophagus: GE junction at 37 cms, hiatal hernia 37 to 40 cms Stomach: Moderate patchy erythema with red streaks in the stomach suggestive of GAVE - treated with APC. A hemoclip noted in the pre-pyloric area (placed during last EGD) Grade 2 flap valve on retroflexed examination of the cardia. Duodenum: Normal bulb and descending duodenum Intervention: Biopsies as noted above Impression and Post Procedure Diagnosis: Endoscopy Findings: ESOPHAGUS: Small hiatal hernia STOMACH: patchy erythema with red streaks in the stomach suggestive of GAVE - treated with APC. A hemoclip noted in the pre-pyloric area (placed during last EGD) DUODENUM: Normal No blood or active bleeding seen in the UGI tract during EGD. Plan: OK to resume Eliquis in the am if CBC remains stable Start a full liquid diet and advance diet as tolerated. Above findings were reviewed with the patient..
--- NOTE | 2025-03-21 16:27 | P.PNNP_ITS ---
Subjective Subjective Date of Service: 03/21/25 Interval history: Underwent EGD this morning, no new complaints. States about she has 3-4 voiding everyday Creatinine remained stable Bedside echo showed IVC is on the smaller side and collapsing with respiration, bedside ultrasound showed no ascites. Puffiness is possibly secondary to steroids Physical Exam 2 Vital Signs: Vital Signs: Last Vital Signs Temp 98.7 F 03/21/25 15:17 Pulse 75 03/21/25 15:17 Resp 18 03/21/25 15:17 BP 172/96 H 03/21/25 15:17 Pulse Ox 100 03/21/25 15:17 O2 Del Method Room Air 03/21/25 15:17 O2 Flow Rate 6 03/21/25 13:19 BMI result Body Mass Index 21.6 General: Young lady not in acute distress, sitting in the bed, face puffy Nutritional Appearance: well nourished and overweight Eyes: appearance normal, both eyes and all related structures; Alignment and Position: alignment normal and position normal Neck: No lymphadenopathy, no thyromegaly Resp: bilateral air entry equal, no added sounds present Cardio: Regular rate, regular rhythm; Heart sounds: S1 normal heart sound present and S2 normal heart sound present GI: soft, abdomen distended, nontender, no guarding, no hepatosplenomegaly : bladder normal to inspection, bladder normal to palpation, no renal angle tenderness Skin: no rashes or lesions noted and elasticity normal Neuro: oriented to person, oriented to place, oriented to time and moves all extremities Objective Data Labs 03/21/25 06:11 03/21/25 06:11 Labs: Laboratory Results - last 24 hr 03/21/25 03/21/25 06:11 10:58 WBC 9.2 RBC 2.78 L Hgb 8.8 L Hct 26.1 L MCV 93.9 MCH 31.7 MCHC 33.7 RDW 17.0 H Plt Count 188 MPV 8.4 L Absolute Nucleated RBC 0.020 H Nucleated RBC % (auto) 0.2 Sodium 140 Potassium 3.5 Chloride 104 Carbon Dioxide 28 Anion Gap 12 BUN 20 H Creatinine 1.08 Estim Creat Clear Calc 73.4 Estimated GFR 59 Random Glucose 75 Calcium 8.4 Beta HCG, Quant < 2 Procedures Date of Service Date of Service: 03/21/25 Assessment & Plan Assessment and plan (1) CKD (chronic kidney disease) stage 3, GFR 30-59 ml/min: Status: Acute (2) Acute kidney injury superimposed on chronic kidney disease: Status: Acute Plan Acute kidney injury: Underwent renal biopsy which showed kidney injury is secondary to combination of ATN from septic shock along with class 5 lupus nephritis. Her renal function has been slowly improving over the past 3-4 weeks. She has a urine output of about 800 cc in a day in the previous 24 hour urine collection, however her creatinine clearance was about 10. Her creatinine has been staying stable on the days in between dialysis and has not been increasing much. We will do another 24 hour urine collection for creatinine clearance and we will evaluate if she can come off of renal replacement therapy and if PermCath can be removed tomorrow. She has significant puffiness of her face, abdomen and extremities. However on a bedside echo her volume status seems to be on the lower side, IVC small and fluctuating with respiration, good LV systolic function. There is no evidence of ascites on ultrasound abdomen, a bladder with urine about 300-400 cc noted. Patient has Class V lupus nephritis on renal biopsy. We will get a UPCR and a 24 hour urine protein along with ds DNA and complement levels to see if she needs to be started on CellCept for immunosuppression. Time Spent With Patient Time: Total time managing care of this patient today 35minutes. Progress Note: Quality Stroke Does the patient have a stroke diagnosis?: No
[2025-03-21] MEDS: oxyCODONE HCl Immed Release 5 MG TABLET PO (17:57)
[2025-03-22] VITALS (9 sets, daily range): BP systolic 148–190; BP diastolic 60–110; PULSE 75–94; RESP 16–18; TEMP 36.6–37.8; O2SAT 94–100
[2025-03-22 02:42] LABS: Appearance Urine Cloudy; Glucose Urine UA Negative (Negative); PH 6.0 (5.0-9.0); Specific Gravity - Urine 1.015 (1.005-1.025); UMIC TRIGGER UA YES
[2025-03-22 07:14] LABS: Hematocrit 26.0 % (37.0-47.0); Hemoglobin 8.8 g/dl (12.0-16.0); Mean Corpuscular HGB Conc 33.8 g/dl (31.0-35.0); Mean Corpuscular Hemoglobin 31.8 pg (27.0-33.0); Mean Corpuscular Volume 93.9 fL (80.0-98.0); NRBC Abs Auto 0.000 X10*3/uL (0.0-0.012); NRBC Pct Auto 0.0 /100WBC (0.0-0.2); Platelet Count 177 X10*3/uL (160-400); Red Blood Count 2.77 X10*6/uL (4.20-5.50); White Blood Count 10.2 X10*3/uL (4.8-10.8)
[2025-03-22 07:35] LABS: Anion Gap 13 (12-20); Blood Urea Nitrogen 33 mg/dL (9-16); Calcium 8.1 mg/dL (8.4-10.2); Carbon Dioxide 26 mmol/L (22-29); Chloride 105 mmol/L (96-108); Creatinine Clr Calc Pharmacy 60.4; Estimated Glomerular Filt Rate 47; Potassium 3.7 mmol/L (3.3-5.1); Sodium 140 mmol/L (135-145)
[2025-03-22] MEDS: 0.9 % Sodium Chloride Flush 3 ML SYRINGE IVFLUSH ×3 (07:42→20:32)
--- NOTE | 2025-03-22 09:34 | HO.POSTANES ---
Post Anesthesia Evaluation Post Anesthesia Evaluation Date of Service: 03/22/25 Vital Signs: Vital Signs Temp Pulse Resp BP Pulse Ox O2 Del Method 03/22/25 08:59 188/110 H 03/22/25 07:06 98.3 F 78 18 190/110 H 94 Room Air 03/22/25 04:00 97.8 F 76 16 160/82 H 100 Room Air 03/22/25 00:26 170/82 H 03/22/25 00:00 98.3 F 86 16 175/97 H 97 Room Air Anesthesia: Monitored Mental Status: Awake Pain Control: Satisfactory Nausea/Vomiting: None Hydration: Adequate Anesthesia-Related Issues: No Anes. Related Issues
[2025-03-22 09:44] LABS: Creatinine, mg/dL 71.02
[2025-03-22 09:47] LABS: Creatinine, mg/dL 71.80
[2025-03-22 10:03] LABS: Total Volume 24 Hour Urine 575 mL
[2025-03-22 10:04] LABS: Creatinine (CrCl) 1.31 mg/dL (0.5-1.4); Total Volume 24 Hour Urine 575 mL
--- NOTE | 2025-03-22 10:30 | PM.PNNEP ---
Subjective Subjective Date of Service: 03/22/25 Interval history: Following for ESRD on HD presented after dialysis on 03/19 and found to have severe anemia with hemoglobin of 6.3- transfused, +FOBT, EGD without active bleeding. H&H remains stable. States about she has 3-4 voiding everyday creatinine is 1.31- last dialysis on 03/19, 24 hour urine creatinine clearance 21 on 03/22, was 10 on 03/08. Physical Exam Vital Signs: Vital Signs: Last Vital Signs Temp 100.1 F 03/22/25 11:18 Pulse 94 03/22/25 11:18 Resp 18 03/22/25 11:18 BP 182/80 H 03/22/25 11:18 Pulse Ox 95 03/22/25 11:18 O2 Del Method Room Air 03/22/25 11:18 O2 Flow Rate 6 03/21/25 13:19 BMI result Body Mass Index 21.6 Const: General: no acute distress, alert and awake Resp: Effort & Inspection: normal respiratory effort and able to speak in complete sentences Auscultation: clear to auscultation bilaterally Cardio: Rate: regular rate Rhythm: regular rhythm Heart sounds: S1 normal heart sound present and S2 normal heart sound present GI: Palpation (GI): Soft to palpation and nontender Skin: Rashes: no rashes Extrem: General: No edema Objective Data Labs 03/22/25 06:51 03/22/25 06:51 Labs: Laboratory Results - last 24 hr 03/22/25 03/22/25 03/22/25 01:57 06:00 06:00 WBC RBC Hgb Hct MCV MCH MCHC RDW Plt Count MPV Absolute Nucleated RBC Nucleated RBC % (auto) Sodium Potassium Chloride Carbon Dioxide Anion Gap BUN Creatinine 1.31 Estim Creat Clear Calc Estimated GFR Random Glucose Calcium Urine Color Yellow Urine Appearance Cloudy Urine pH 6.0 Ur Specific [place] 1.015 Urine Protein 300 (3+) H Urine Glucose (UA) Negative Urine Ketones Negative Urine Blood Negative Urine Nitrite Negative Ur Leukocyte Esterase Negative Urine RBC 0-2 Urine WBC 0-5 Ur Squamous Epith Cells >20 Urine Bacteria 2+ Hyaline Casts 3-5 Granular Casts Present U Random Total Protein 298 H Ur 24 Hour Volume 575 575 Urine Creatinine 84.56 Ur Creatinine mg/dL 71.02 Ur Creatinine 24 Hour Creat Clearance 24 Hr Ur Total Protein 24 Hr Protein/Creatinin Ratio 3.52 H 03/22/25 03/22/25 03/22/25 06:00 06:00 06:51 WBC 10.2 RBC 2.77 L Hgb 8.8 L Hct 26.0 L MCV 93.9 MCH 31.8 MCHC 33.8 RDW 16.5 H Plt Count 177 MPV 8.6 L Absolute Nucleated RBC 0.000 Nucleated RBC % (auto) 0.0 Sodium 140 Potassium 3.7 Chloride 105 Carbon Dioxide 26 Anion Gap 13 BUN 33 H Creatinine 1.31 Estim Creat Clear Calc 60.4 Estimated GFR 47 Random Glucose 100 Calcium 8.1 L Urine Color Urine Appearance Urine pH Ur Specific [place] Urine Protein Urine Glucose (UA) Urine Ketones Urine Blood Urine Nitrite Ur Leukocyte Esterase Urine RBC Urine WBC Ur Squamous Epith Cells Urine Bacteria Hyaline Casts Granular Casts U Random Total Protein Ur 24 Hour Volume Urine Creatinine Ur Creatinine mg/dL 71.80 Ur Creatinine 24 Hour 0.4 L 0.4 L Creat Clearance 24 Hr 21.6 L Ur Total Protein 24 Hr 1834 H Protein/Creatinin Ratio Procedures Date of Service Date of Service: 03/22/25 Assessment & Plan Assessment and plan (1) CKD (chronic kidney disease) stage 3, GFR 30-59 ml/min: Status: Acute (2) Acute kidney injury superimposed on chronic kidney disease: Status: Acute Plan KALEIGH from class 5 lupus nephritis and ATN from septic shock per recent renal biopsy. KALEIGH is improving- creatinine clearance now 21, she is making more urine may remove permcath given improvement in renal function, no indication for renal replacement at this time. will taper prednisone- will get anti-DS DNA ab and complement levels- if DS ab elevated or complements low, may add cellcept for treatment of lupus nephritis. facial and extremity swelling likely from prednisone. Will taper to 50mg daily for next week and may continue weekly taper pending results of laboratory studies, unclear if lupus is still in active flare will start on ARB for significant proteinuria. Patient will need close follow up in the nephrology outpatient office next week. Discussed with Dr Mcnair. Time Spent With Patient Time: Total time managing care of this patient today ____ minutes. Progress Note: Quality Stroke Does the patient have a stroke diagnosis?: No
[2025-03-22] MEDS: oxyCODONE HCl Immed Release 5 MG TABLET PO (10:40)
[2025-03-22 10:42] LABS: Protein/Creatinine Ratio, Ur 3.52 (<0.2); Total Protein Urine Random 298 mg/dL (<12)
--- NOTE | 2025-03-22 11:01 | P.CONGS_ITS ---
<Statement entered by Danis Stewart MD - 03/22/25 15:08> I have seen and evaluated the patient and agree with history, findings, assessment and plan documented by Aggie Lay PA-c. Patient negative for PE on CTA. Hold anticoagulation as required History of Present Illness Consult details Consult date: 03/22/25 Narrative: We were consulted on Jilarry, for concerns of being unable to be on anticoagulation. She presented to the ER on 03/19 with concerns of worsening anemia with weakness and fatigue. She has a medical hx pertinent for lupus, lupus nephritis, HD T/Th/Sat due to acute renal failure, pericardial effusion on Prednisone, HTN, anemia, PE on Eliquis, fibromyalgia, and chronic pain on opiates. She was admitted for acute on chronic anemia. Her H/H remain stable after transfusion. She denies any diff breathing or shortness of breath; she does endorse bilateral rib pain as well as generalized weakness and fatigue. Review of Systems 2 Constitutional: Constitutional: Reports as per HPI and Denies weakness ENT: Reports Normal hearing present and Denies dizziness Cardiovascular: Cardiovascular: Reports as per HPI, Denies chest pain, Denies chest pain at rest, Denies chest pain with activity, Denies dyspnea and Denies dyspnea on exertion Respiratory: Respiratory: Reports as per HPI, Denies cough, Denies dyspnea and Denies dyspnea on exertion Gastrointestinal: Gastrointestinal: Reports as per HPI, Denies abdominal pain, Denies nausea and Denies vomiting Musculoskeletal: Musculoskeletal: Denies numbness Integumentary/Breasts: Skin/Breast: Reports as per HPI, Denies erythema and Denies wounds Neurologic: Reports Normal hearing present, Denies dizziness, Denies numbness, Denies Sensory deficit (Neuro) and Denies weakness Psychiatric: Psychiatric: Reports no additional psychiatric complaints Endocrine: Endocrine: Reports no additional endocrine complaints PMFSH Past Medical History Medical History Anemia At risk for increased anxiety Thrombocytopenia Pulmonary embolism Bicytopenia Infective endocarditis Acute hypoxic respiratory failure Lupus hepatitis Right lower lobe pneumonia senior living (current) use of immunosuppressive biologic Systemic lupus erythematosus Pericarditis Lupus nephritis Pericardial effusion Essential hypertension Rash Acute on chronic anemia Abnormal uterine bleeding Hypertensive urgency Anemia Depression Anxiety Fibromyalgia Lupus Family History Family History Mother Hypertension Type 2 diabetes mellitus Lupus Arthritis Maternal Grandmother Hypertension Type 2 diabetes mellitus Arthritis Surgical History Surgical History Hx of hernia repair Social History Social History Household Members: Spouse and Children Housing: Apartment Do you presently have visiting nurse or other home services: Yes Alcohol intake: former Comment: it hurts all over just like before Patient Tobacco Use Status: Current everyday Tobacco user Tobacco use type: Cigarette Cigarette Packs Per Day: 0.5 Cigarettes Per Day: 3 Years Smoked: 7 Second Hand Smoke Exposure: Yes Substance Use Type: Marijuana Advance Directives Date on File: 04/03/22 service: No Current occupational status: disabled Meds Allergies Allergy/AdvReac Type Severity Reaction Status Date / Time mycophenolate mofetil AdvReac Intermediate GI upset Verified 03/19/25 18:18 Active Medications: Current Medications Acetaminophen (Acetaminophen 325 Mg Tablet) 975 mg PO Q6H PRN PRN Reason: Pain, Mild 1-3,fever,headache Amlodipine Besylate (Amlodipine Besylate 5 Mg Tablet) 5 mg PO DAILY [facility]; Protocol Last Admin: 03/22/25 07:37 Dose: 5 mg Calcium Carbonate (Calcium Carbonate 750 Mg Tab.Chew) 750 mg PO Q4H PRN PRN Reason: Heartburn Duloxetine HCl (Duloxetine Hcl 60 Mg Capsule.Dr) 60 mg PO DAILY [facility] Last Admin: 03/22/25 09:27 Dose: 60 mg Gabapentin (Gabapentin 300 Mg Capsule) 300 mg PO MoWeFr@1800 [facility] Last Admin: 03/21/25 17:52 Dose: 300 mg Hydromorphone HCl (Hydromorphone Hcl 2 Mg Tablet) 2 mg PO Q6H PRN PRN Reason: Pain, Moderate(Pain Scale 4-6) Last Admin: 03/22/25 06:36 Dose: 2 mg Daptomycin 500 mg/ Sodium (Chloride) 60 mls @ 100 mls/hr IV Sa@2000 [facility] Daptomycin 340 mg/ Sodium (Chloride) 56.8 mls @ 100 mls/hr IV TuTh@2000 [facility] Labetalol HCl (Labetalol Hcl 100 Mg Tablet) 100 mg PO TID [facility]; Protocol Last Admin: 03/22/25 07:38 Dose: 100 mg Losartan Potassium (Losartan Potassium 25 Mg Tablet) 25 mg PO DAILY [facility]; Protocol Last Admin: 03/22/25 10:38 Dose: 25 mg Magnesium Hydroxide (Milk Of Magnesia 30 Ml Oral.Susp) 30 ml PO DAILY PRN PRN Reason: Constipation Melatonin (Melatonin 3 Mg Tablet) 6 mg PO BEDTIME PRN PRN Reason: Insomnia Naloxone HCl (Naloxone Hcl 0.4 Mg/Ml Vial) 0.04 mg IVPUSH Q5M PRN PRN Reason: Excessive sedation or RR < 8 Ondansetron HCl (Ondansetron Hcl 4 Mg/2 Ml Vial) 4 mg IVPUSH Q8H PRN PRN Reason: Nausea and Vomiting Oxycodone HCl (Oxycodone Hcl Immed Release 5 Mg Tablet) 5 mg PO Q6H PRN PRN Reason: Pain, Moderate(Pain Scale 4-6) Last Admin: 03/22/25 10:40 Dose: 5 mg Pantoprazole Sodium (Pantoprazole Sodium 40 Mg/10 Ml Vial) 40 mg IVPUSH BID@0630,1630 [facility] Last Admin: 03/22/25 05:38 Dose: 40 mg Prednisone (Prednisone 20 Mg Tablet) 60 mg PO DAILY [facility] Last Admin: 03/22/25 09:27 Dose: 60 mg Sodium Bicarbonate (Sodium Bicarbonate 650 Mg Tablet) 650 mg PO BID [facility] Last Admin: 03/22/25 09:27 Dose: 650 mg Sodium Chloride (0.9 % Sodium Chloride Flush 3 Ml Syringe) 3 ml IVFLUSH QSHIFT [facility] Last Admin: 03/22/25 07:42 Dose: 3 ml Sucralfate (Suc[facility]fate 1 Gm Tablet) [facility] Last Admin: 03/22/25 07:37 Dose: 1 gm Home Medications ?Medication ?Instructions ?Recorded ?Confirmed ?Last Taken ?Type acetaminophen 650 mg 1,300 mg PO Q8H PRN pain 03/0903/20/25 Unknown History tablet,extended release diclofenac sodium 1.5 % topical 40 drp topical QID PRN legs 03/20/25 03/20/25 Unknown History drops duloxetine 30 mg capsule,delayed 60 mg PO DAILY 03/20/25 03/19/25 History release prednisone 10 mg tablet 60 mg PO DAILY 03/20/25 07/0 03/0903/19/25 History Physical Exam 2 Vital Signs: Vital Signs: Last Vital Signs Temp 98.3 F 03/22/25 07:06 Pulse 78 03/22/25 07:06 Resp 18 03/22/25 07:06 BP 188/110 H 03/22/25 08:59 Pulse Ox 94 03/22/25 07:06 O2 Del Method Room Air 03/22/25 07:06 O2 Flow Rate 6 03/21/25 13:19 BMI result Body Mass Index 21.6 Const: General: comfortable and no acute distress O rientation/consciousness: patient oriented x3 HEENT: Ears: hearing grossly normal bilaterally Resp: Effort & Inspection: normal respiratory effort and able to speak in complete sentences Auscultation: clear to auscultation bilaterally Cardio: Rate: regular rate Rhythm: regular rhythm Heart sounds: S1 normal heart sound present and S2 normal heart sound present Bruits: no abdominal aortic bruits, no carotid bruits, no femoral bruits and no renal bruits GI: Other: distended Palpation (GI): No Abdominal aortic bruit present Neuro: General: patient oriented x3 Cranial nerves: Yes Normal hearing present Sensory Exam: No Sensory deficit (Neuro) Results Labs 03/22/25 06:51 03/22/25 06:51 Labs: Abnormal lab results 03/22/25 03/22/25 03/22/25 Range/Units 01:57 06:00 06:00 RBC (4.20-5.50) X10*6/uL Hgb (12.0-16.0) g/dl Hct (37.0-47.0) % RDW (11.0-16.0) % MPV (9.4-12.3) fL BUN (9-16) mg/dL Calcium (8.4-10.2) mg/dL Urine Protein 300 (3+) H (Neg-Trace) mg/dL U Random Total Protein 298 H (<12) mg/dL Ur Creatinine 24 Hour 0.4 L 0.4 L (1.0-2.0) G/Day Creat Clearance 24 Hr 21.6 L (85-125) mL/min Ur Total Protein 24 Hr 1834 H (<150) mg/Day Protein/Creatinin Ratio 3.52 H (<0.2) 03/22/25 Range/Units 06:51 RBC 2.77 L (4.20-5.50) X10*6/uL Hgb 8.8 L (12.0-16.0) g/dl Hct 26.0 L (37.0-47.0) % RDW 16.5 H (11.0-16.0) % MPV 8.6 L (9.4-12.3) fL BUN 33 H (9-16) mg/dL Calcium 8.1 L (8.4-10.2) mg/dL Urine Protein (Neg-Trace) mg/dL U Random Total Protein (<12) mg/dL Ur Creatinine 24 Hour (1.0-2.0) G/Day Creat Clearance 24 Hr (85-125) mL/min Ur Total Protein 24 Hr (<150) mg/Day Protein/Creatinin Ratio (<0.2) Short CBC 03/22/25 Range/Units 06:51 WBC 10.2 (4.8-10.8) X10*3/uL Hgb 8.8 L (12.0-16.0) g/dl Hct 26.0 L (37.0-47.0) % Plt Count 177 (160-400) X10*3/uL BMP 03/22/25 03/22/25 06:00 06:51 Sodium 140 Potassium 3.7 Chloride 105 Carbon Dioxide 26 BUN 33 H Creatinine 1.31 1.31 Calcium 8.1 L Urine 03/22/25 Range/Units 01:57 Urine Color Yellow Urine Appearance Cloudy Urine pH 6.0 (5.0-9.0) Ur Specific [place] 1.015 (1.005-1.025) Urine Protein 300 (3+) H (Neg-Trace) mg/dL Urine Glucose (UA) Negative (Negative) mg/dL All other labs normal. Assessment and Plan (1) DVT (deep venous thrombosis): Qualifiers: DVT location: lower extremity Affected thrombotic vein of extremity: u nspecified vein of extremity Chronicity: unspecified Laterality: unspecified laterality Qualified Code(s): I82.409 - Acute embolism and thrombosis of unspecified deep veins of unspecified lower extremity Status: Acute Plan We were consulted on Jilarry for concerns of anticoagulation due to hx of DVT and PE. She presented to the ER with acute on chronic anemia. US performed this morning reveals no DVT. She was previously on Eliquis, which has been held. There is no acute vascular surgical intervention at this point. There is no necessity for anticoagulation at this point; the pt does not have a PE or DVT. We will continue to monitor. If there are any questions or concerns, please do not hesitate to reach out to us. Procedures Date of Service Date of Service: 03/22/25
--- NOTE | 2025-03-22 14:38 | HO.PM.IMPN ---
Subjective Subjective Date of Service: 03/22/25 Interval History: f/u on anemai,+FOBT no active, overall calm, complaint of pain all over, not new Physical Exam Vital Signs: Vital Signs: Last Vital Signs Temp 100.1 F 03/22/25 11:18 Pulse 94 03/22/25 11:18 Resp 18 03/22/25 11:18 BP 182/80 H 03/22/25 11:18 Pulse Ox 95 03/22/25 11:18 O2 Del Method Room Air 03/22/25 11:18 O2 Flow Rate 6 03/21/25 13:19 BMI result Body Mass Index 21.6 Const: Other: General: AO X 3, no acute distress Resp: CTA bilateral CVS: S1,S2,RRR GI: +BS, NT, no distention Skin: No rash Neuro: motor grossly intact Psych: appropriate affect Objective Data Active Medications Acetaminophen (Acetaminophen 325 Mg Tablet) 975 mg PO Q6H PRN PRN Reason: Pain, Mild 1-3,fever,headache Amlodipine Besylate (Amlodipine Besylate 10 Mg Tablet) 10 mg PO DAILY [facility]; Protocol Apixaban (Apixaban 2.5 Mg Tablet) 2.5 mg PO BID [facility] Calcium Carbonate (Calcium Carbonate 750 Mg Tab.Chew) 750 mg PO Q4H PRN PRN Reason: Heartburn Duloxetine HCl (Duloxetine Hcl 60 Mg Capsule.Dr) 60 mg PO DAILY [facility] Last Admin: 03/22/25 09:27 Dose: 60 mg Documented By: AMANDA Gabapentin (Gabapentin 300 Mg Capsule) 300 mg PO MoWeFr@1800 [facility] Last Admin: 03/21/25 17:52 Dose: 300 mg Documented By: JELENA Hydromorphone HCl (Hydromorphone Hcl 2 Mg Tablet) 3 mg PO Q4H PRN PRN Reason: Pain, Severe (Pain Scale 7-10) Daptomycin 500 mg/ Sodium (Chloride) 60 mls @ 100 mls/hr IV Sa@2000 [facility] Daptomycin 340 mg/ Sodium (Chloride) 56.8 mls @ 100 mls/hr IV TuTh@1999 [facility] Labetalol HCl (Labetalol Hcl 100 Mg Tablet) 150 mg PO TID [facility]; Protocol Losartan Potassium (Losartan Potassium 25 Mg Tablet) 25 mg PO DAILY [facility]; Protocol Last Admin: 03/22/25 10:38 Dose: 25 mg Documented By: AMANDA Magnesium Hydroxide (Milk Of Magnesia 30 Ml Oral.Susp) 30 ml PO DAILY PRN PRN Reason: Constipation Melatonin (Melatonin 3 Mg Tablet) 6 mg PO BEDTIME PRN PRN Reason: Insomnia Naloxone HCl (Naloxone Hcl 0.4 Mg/Ml Vial) 0.04 mg IVPUSH Q5M PRN PRN Reason: Excessive sedation or RR < 8 Ondansetron HCl (Ondansetron Hcl 4 Mg/2 Ml Vial) 4 mg IVPUSH Q8H PRN PRN Reason: Nausea and Vomiting Oxycodone HCl (Oxycodone Hcl Immed Release 5 Mg Tablet) 5 mg PO Q4H PRN PRN Reason: Pain, Moderate(Pain Scale 4-6) Pantoprazole Sodium (Pantoprazole Sodium 40 Mg/10 Ml Vial) 40 mg IVPUSH BID@0630,1630 [facility] Last Admin: 03/22/25 05:38 Dose: 40 mg Documented By: MAGDA Prednisone (Prednisone 10 Mg Tablet) 50 mg PO DAILY [facility] Sodium Bicarbonate (Sodium Bicarbonate 650 Mg Tablet) 650 mg PO BID [facility] Last Admin: 03/22/25 09:27 Dose: 650 mg Documented By: AMANDA Sodium Chloride (0.9 % Sodium Chloride Flush 3 Ml Syringe) 3 ml IVFLUSH QSHIFT [facility] Last Admin: 03/22/25 07:42 Dose: 3 ml Documented By: JELENA Sucralfate (Sucralfate 1 Gm Tablet) 1 gm PO BIDAC [facility] Last Admin: 03/22/25 07:37 Dose: 1 gm Documented By: JELENA Labs 03/22/25 06:51 03/22/25 06:51 Labs: Laboratory Results - last 24 hr 03/22/25 03/22/25 03/22/25 01:57 06:00 06:00 MCV MCH MCHC RDW Plt Count MPV Absolute Nucleated RBC Nucleated RBC % (auto) Anion Gap Estim Creat Clear Calc Estimated GFR Random Glucose Calcium Urine Color Yellow Urine Appearance Cloudy Urine pH 6.0 Ur Specific [place] 1.015 Urine Protein 300 (3+) H Urine Glucose (UA) Negative Urine Ketones Negative Urine Blood Negative Urine Nitrite Negative Ur Leukocyte Esterase Negative Urine RBC 0-2 Urine WBC 0-5 Ur Squamous Epith Cells >20 Urine Bacteria 2+ Hyaline Casts 3-5 Granular Casts Present U Random Total Protein 298 H Ur 24 Hour Volume 575 575 Urine Creatinine 84.56 Ur Creatinine mg/dL 71.02 Ur Creatinine 24 Hour Creat Clearance 24 Hr Ur Total Protein 24 Hr Protein/Creatinin Ratio 3.52 H 03/22/25 03/22/25 03/22/25 06:00 06:00 06:51 MCV 93.9 MCH 31.8 MCHC 33.8 RDW 16.5 H Plt Count 177 MPV 8.6 L Absolute Nucleated RBC 0.000 Nucleated RBC % (auto) 0.0 Anion Gap 13 Estim Creat Clear Calc 60.4 Estimated GFR 47 Random Glucose 100 Calcium 8.1 L Urine Color Urine Appearance Urine pH Ur Specific [place] Urine Protein Urine Glucose (UA) Urine Ketones Urine Blood Urine Nitrite Ur Leukocyte Esterase Urine RBC Urine WBC Ur Squamous Epith Cells Urine Bacteria Hyaline Casts Granular Casts U Random Total Protein Ur 24 Hour Volume Urine Creatinine Ur Creatinine mg/dL 71.80 Ur Creatinine 24 Hour 0.4 L 0.4 L Creat Clearance 24 Hr 21.6 L Ur Total Protein 24 Hr 1834 H Protein/Creatinin Ratio Assessment and Plan (1) Anemia: Status: Acute (2) CKD (chronic kidney disease) stage 3, GFR 30-59 ml/min: Status: Acute (3) Acute kidney injury superimposed on chronic kidney disease: Status: Acute (4) ESRD (end stage renal disease) on dialysis: Status: Acute (5) Acute renal failure (ARF): Status: Acute Plan Patient is a 29-year-old female with a past medical history 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 No further dialysis 24 hour urine and will remove dialysis line recent polymicrobial bacteremia - e coli, Klebsiella, MRSA continue daptomycin dosing 340 mg every Friday and , end date 04/04/2025 and daptomycin 500 mg every Friday end date 04/04/2025. Lupus with nephritis continue prednisone but reduce to 60 mg daily, potentially can cause gastritis HTN continue home meds hx pericardial effusion - continue home meds fibromyalgia/chronic pain dilaudid and oxycodone for pain full code VTE prophy: pneumoboots Patient with acute on chronic normocytic anemia with positive fecal occult blood test, requiring admission for at least 2 midnight stay for blood transfusion, monitoring and specialist consultation. Quality Stroke Does the patient have a stroke diagnosis?: No VTE Prior VTE?: No VTE Risk Level:: Medical - moderate - high VTE Device Contraindication: N/A - Device Ordered VTE Drug Contraindication: Treatment Not Indicated
[2025-03-22] MEDS: SODIUM CHLORIDE 0.9% IV (20:32)
[2025-03-22] MEDS: DAPTOMYCIN IV (20:32)
[2025-03-23] VITALS (9 sets, daily range): BP systolic 148–184; BP diastolic 59–96; PULSE 72–91; RESP 12–20; TEMP 36.2–37; O2SAT 92–100
[2025-03-23] MEDS: 0.9 % Sodium Chloride Flush 3 ML SYRINGE IVFLUSH ×3 (07:52→20:19)
--- NOTE | 2025-03-23 10:15 | P.PNNP_ITS ---
Subjective Subjective Date of Service: 03/23/25 Interval history: Following for ESRD on HD presented after dialysis on 03/19 and found to have severe anemia with hemoglobin of 6.3- transfused, +FOBT, EGD without active bleeding. H&H remains stable. States about she has 3-4 voiding everyday creatinine is 1.29- last dialysis on 03/19, 24 hour urine creatinine clearance 21 on 03/22, was 10 on 03/08. Physical Exam 2 Vital Signs: Vital Signs: Last Vital Signs Temp 97.2 F 03/23/25 08:33 Pulse 75 03/23/25 10:55 Resp 12 03/23/25 10:55 BP 155/88 H 03/23/25 10:55 Pulse Ox 100 03/23/25 10:55 O2 Del Method Room Air 03/23/25 10:55 O2 Flow Rate 6 03/21/25 13:19 BMI result Body Mass Index 21.6 Const: General: no acute distress, alert and awake Resp: Effort & Inspection: normal respiratory effort and able to speak in complete sentences Auscultation: clear to auscultation bilaterally Cardio: Rate: regular rate Rhythm: regular rhythm Heart sounds: S1 normal heart sound present and S2 normal heart sound present GI: Palpation (GI): Soft to palpation and nontender Skin: Rashes: no rashes Extrem: General: No edema Objective Data Labs 03/22/25 06:51 03/23/25 10:35 Labs: Laboratory Results - last 24 hr 03/23/25 10:35 Sodium 141 Potassium 4.3 Chloride 107 Carbon Dioxide 27 Anion Gap 11 L BUN 32 H Creatinine 1.29 Estim Creat Clear Calc 61.4 Estimated GFR 48 Random Glucose 107 Calcium 8.7 D Procedures Date of Service Date of Service: 03/23/25 Assessment & Plan Assessment and plan (1) CKD (chronic kidney disease) stage 3, GFR 30-59 ml/min: Status: Acute (2) Acute kidney injury superimposed on chronic kidney disease: Status: Acute Plan KALEIGH from class 5 lupus nephritis and ATN from septic shock per recent renal biopsy. KALEIGH is improving- creatinine clearance now 21, she is making more urine may remove permcath given improvement in renal function, no indication for renal replacement at this time. will taper prednisone- will get anti-DS DNA ab and complement levels- if DS ab elevated or complements low, may add cellcept for treatment of lupus nephritis. facial and extremity swelling likely from prednisone. Will taper to 40mg daily for next week and may continue weekly taper pending results of laboratory studies, unclear if lupus is still in active flare will start on ARB for significant proteinuria. Patient will need close follow up in the nephrology outpatient office next week. Discussed with Dr Mcnair. Time Spent With Patient Time: Total time managing care of this patient today ____ minutes. Progress Note: Quality Stroke Does the patient have a stroke diagnosis?: No
[2025-03-23 11:06] LABS: Anion Gap 11 (12-20); Blood Urea Nitrogen 32 mg/dL (9-16); Calcium 8.7 mg/dL (8.4-10.2); Carbon Dioxide 27 mmol/L (22-29); Chloride 107 mmol/L (96-108); Creatinine Clr Calc Pharmacy 61.4; Estimated Glomerular Filt Rate 48; Potassium 4.3 mmol/L (3.3-5.1); Sodium 141 mmol/L (135-145)
--- NOTE | 2025-03-23 11:47 | PC.NURSE ---
Patient returned from unit from line removal. Patient complain of pain at removal site - no swelling noted, dressing, dry and intact. Patient denies SOB. Medicated per MAR. Patient advised to use call hendricks if needed.
--- NOTE | 2025-03-23 16:06 | P.PNIM_ITS ---
Subjective Subjective Date of Service: 03/23/25 Interval History: No new issues, vital stable, renal function stable Physical Exam 2 Vital Signs: Vital Signs: Last Vital Signs Temp 97.9 F 03/23/25 14:58 Pulse 91 03/23/25 14:58 Resp 12 03/23/25 14:58 BP 163/94 H 03/23/25 14:58 Pulse Ox 100 03/23/25 14:58 O2 Del Method Room Air 03/23/25 14:58 O2 Flow Rate 6 03/21/25 13:19 BMI result Body Mass Index 21.6 Const: Other: General: AO X 3, no acute distress Resp: CTA bilateral CVS: S1,S2,RRR GI: +BS, NT, no distention Skin: No rash Neuro: motor grossly intact Psych: appropriate affect Objective Data Active Medications Acetaminophen (Acetaminophen 325 Mg Tablet) 975 mg PO Q6H PRN PRN Reason: Pain, Mild 1-3,fever,headache Last Admin: 03/23/25 11:55 Dose: 975 mg Documented By: ELIDA Amlodipine Besylate (Amlodipine Besylate 10 Mg Tablet) 10 mg PO DAILY [facility]; Protocol Last Admin: 03/23/25 07:49 Dose: 10 mg Documented By: FADIA Apixaban (Apixaban 2.5 Mg Tablet) 2.5 mg PO BID [facility] Last Admin: 03/23/25 07:49 Dose: 2.5 mg Documented By: FADIA Calcium Carbonate (Calcium Carbonate 750 Mg Tab.Chew) 750 mg PO Q4H PRN PRN Reason: Heartburn Duloxetine HCl (Duloxetine Hcl 60 Mg Capsule.) 60 mg PO DAILY [facility] Last Admin: 03/23/25 07:49 Dose: 60 mg Documented By: FADIA Gabapentin (Gabapentin 300 Mg Capsule) 300 mg PO MoWeFr@1800 [facility] Last Admin: 03/21/25 17:52 Dose: 300 mg Documented By: JELENA Hydromorphone HCl (Hydromorphone Hcl 2 Mg Tablet) 3 mg PO Q4H PRN PRN Reason: Pain, Severe (Pain Scale 7-10) Last Admin: 03/23/25 16:01 Dose: 3 mg Documented By: ELIDA Daptomycin 500 mg/ Sodium (Chloride) 60 mls @ 100 mls/hr IV Q24H [facility] Last Infusion: 03/23/25 16:05 Dose: Infused Documented By: ELIDA Labetalol HCl (Labetalol Hcl 100 Mg Tablet) 150 mg PO TID [facility]; Protocol Last Admin: 03/23/25 14:56 Dose: 150 mg Documented By: ELIDA Losartan Potassium (Losartan Potassium 25 Mg Tablet) 25 mg PO DAILY [facility]; Protocol Last Admin: 03/23/25 07:49 Dose: 25 mg Documented By: FADIA Magnesium Hydroxide (Milk Of Magnesia 30 Ml Oral.Susp) 30 ml PO DAILY PRN PRN Reason: Constipation Melatonin (Melatonin 3 Mg Tablet) 6 mg PO BEDTIME PRN PRN Reason: Insomnia Naloxone HCl (Naloxone Hcl 0.4 Mg/Ml Vial) 0.04 mg IVPUSH Q5M PRN PRN Reason: Excessive sedation or RR < 8 Ondansetron HCl (Ondansetron Hcl 4 Mg/2 Ml Vial) 4 mg IVPUSH Q8H PRN PRN Reason: Nausea and Vomiting Oxycodone HCl (Oxycodone Hcl Immed Release 5 Mg Tablet) 5 mg PO Q4H PRN PRN Reason: Pain, Moderate(Pain Scale 4-6) Prednisone (Prednisone 20 Mg Tablet) 40 mg PO DAILY [facility] Sodium Chloride (0.9 % Sodium Chloride Flush 3 Ml Syringe) 3 ml IVFLUSH QSHIFT [facility] Last Admin: 03/23/25 15:15 Dose: 3 ml Documented By: ELIDA Sucralfate (Sucralfate 1 Gm Tablet) 1 gm PO BIDAC [facility] Last Admin: 03/23/25 16:02 Dose: 1 gm Documented By: ELIDA Labs 03/22/25 06:51 03/23/25 10:35 Labs: Laboratory Results - last 24 hr 03/21/25 03/23/25 18:50 10:35 Anion Gap 11 L Estim Creat Clear Calc 61.4 Estimated GFR 48 Random Glucose 107 Calcium 8.7 D Complement C3 131 Complement C4 23 Assessment and Plan (1) Anemia: Status: Acute (2) CKD (chronic kidney disease) stage 3, GFR 30-59 ml/min: Status: Acute (3) Acute kidney injury superimposed on chronic kidney disease: Status: Acute (4) ESRD (end stage renal disease) on dialysis: Status: Acute (5) Acute renal failure (ARF): Status: Acute Plan Patient is a 29-year-old female with a past medical history 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 off dialysis, catheter removed recent polymicrobial bacteremia - e coli, Klebsiella, MRSA was getting daptomycin around dialysis but will change to daily end date is April 04, will request midline Lupus with nephritis continue prednisone but reduce to 60 mg daily, potentially can cause gastritis HTN continue home meds hx pericardial effusion - continue home meds fibromyalgia/chronic pain dilaudid and oxycodone for pain full code VTE prophy: pneumoboots Patient with acute on chronic normocytic anemia with positive fecal occult blood test, requiring admission for at least 2 midnight stay for blood transfusion, monitoring and specialist consultation. Quality Stroke Does the patient have a stroke diagnosis?: No VTE Prior VTE?: No VTE Risk Level:: Medical - moderate - high VTE Device Contraindication: N/A - Device Ordered VTE Drug Contraindication: Treatment Not Indicated
--- NOTE | 2025-03-23 16:36 | PM.EVENT ---
Event Note Date of Service: 03/23/25 Event Note: Dr. John Paul del real with midline to complete the rest of antibiotics ending April 04 Time Spent With Patient Time: Total time managing care of this patient today ____ minutes.
[2025-03-23] MEDS: oxyCODONE HCl Immed Release 5 MG TABLET PO (18:11)
--- NOTE | 2025-03-23 18:13 | PC.NURSE ---
18:00 - patient returned from IR, midline unsuccessful. Patient tearful, frustrated and complaining of pain on right arm where midline attempt was performed. Pain medications administered per MAR, comfort provided with listening and snacks. Call hendricks in reach.
[2025-03-24] VITALS (7 sets, daily range): BP systolic 146–190; BP diastolic 60–96; PULSE 84–92; RESP 16–18; TEMP 36.5–36.9; O2SAT 94–100
[2025-03-24] MEDS: 0.9 % Sodium Chloride Flush 3 ML SYRINGE IVFLUSH (08:25)
[2025-03-24] MEDS: diazePAM 10 MG/2 ML CARTRIDGE 2.5 MG IVPUSH (08:51)
[2025-03-24] MEDS: oxyCODONE HCl Immed Release 5 MG TABLET PO (09:53)
--- NOTE | 2025-03-24 11:25 | HO.MIDLINE ---
Midline Insertion MIDLINE INSERTION Diagnosis: Indication: IV antibiotics Pertinent Labs: Reviewed Technique: Using sterile technique including cap and mask, glove and drape, the left arm arm was prepped and draped in the usual sterile fashion of full barrier technique with CHG. Using ultrasound guidance, the left brachial vein access was obtained in a single attempt by Dr. Ernandez. A20 guage 8 cm NON-PASV Midline was positioned. The procedure was performed in 272. Ultrasound was used to document vein patency and for needle entry. A formal ultrasound picture was recorded. Vascular Stem Processing Machine Operator has released the line for use and it is currently dressed with a StatLock, Tegaderm, and CHG disc. Verification has been performed for blood return and line patency. Arm Circumference: 28cm Equipment: BARD PowerGlide ST Midline Catheter Catheter Type: 20guage 8 cm NON-PASV Midline Lot #: [id number]
--- NOTE | 2025-03-24 11:59 | P.DS_ITS ---
DS: Providers Provider Date of Service: 03/24/25 Date of admission: 03/19/25 20:29 Date of discharge: 03/24/25 Primary care physician: Vic Pompa DO Consults: 03/19/25 20:32 Consult to Hematology / Oncology Routine Consulting Provider: [facility] [place]Hematology Reason for consultation: severe anemia Has provider been notified: No Consult to Nephrology Routine Consulting Provider: [facility] Reason for consultation: ESRD on HD TThSa, anemia Has provider been notified: No 03/19/25 21:33 Consult to Gastroenterology Routine Consulting Provider: Dilip Montero Reason for consultation: anemia, + FOBT Has provider been notified: No 03/19/25 21:59 Consult to Infectious Diseases Routine Consulting Provider: [facility] Reason for consultation: on dapto for polymicrobila bacteremia, due to end 04/04/25 per recent d/c Has provider been notified: No 03/20/25 07:31 Consult to Vascular Surgery Routine Consulting Provider: [facility] Reason for consultation: h/o PE, unable to anticoagulate Has provider been notified: No DS: Diagnosis Discharge Diagnosis (1) Anemia: Status: Acute (2) CKD (chronic kidney disease) stage 3, GFR 30-59 ml/min: Status: Acute (3) Acute kidney injury superimposed on chronic kidney disease: Status: Acute (4) ESRD (end stage renal disease) on dialysis: Status: Acute (5) Acute renal failure (ARF): Status: Acute DS: Summary Hospital Course Hospital Course: admission hpi Chief Complaint: anemia Patient is a 29-year-old female with a past medical history 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 The patient reports weakness and fatigue after having dialysis today. She is receiving 2 units of PRBC in the ED. she also complains of bilateral lower extremity pain for the past week or so, slightly improving. She has started to produce urine as well. She denies any melena, rectal bleeding or hematemesis. She also denies any nausea, vomiting or abdominal pain. No shortness a breath, chest pain or URI symptoms. 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 (on 10mg prednisone), history of pericardial effusion, hypertension, anemia, fibromyalgia, anxiety and depression, just recently discharged on 03/08/2025 after a 25 day hospitalization for acute respiratory failure with hypoxia secondary to pneumonia requiring an ICU stay complicated by cavitary pneumonia, acute renal failure due to lupus nephritis, requiring dialysis, catheter associated acute right jugular vein clot was on eliquis, and severe sepsis due to polymicrobial bacteremia, who presented to the ED today aft er going to dialysis and was found to have severe anemia with a hemoglobin of 6.3. 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 Elquis was on hold and given IV PPI She had EGD done on EGD 03/21 and found to have possible GAVE and gastritis and recommended oral PPI Acute right jugular vein clot, provoked by catherter insertion. Hematology had recommend of anticoagulation, CTA negative for PE chest CTA 03/04/25, repeat US 03/22 showed partial, non oclusive clot remains in the right jugular and given no active bleed and hemoglobin been stable, she's restarted on eliquis 2.5 mg twice daily per heme advise and should be treated for 3 months from middly of February ESRD on HD --She has made complete renal fecovery, creatine is now normal. No further dialysis indicated per nephrology and catheter will be removed. recent polymicrobial bacteremia - e coli, Klebsiella, MRSA She was on dialysis on dialysis days with end date of March, now that she's off dialysis, a midline is being inserted for her to complete the course of antibiotics Lupus with nephritis continue prednisone 60 mg daily, potentially can cause gastritis, to be tappered on outpatient basis HTN continue home meds hx pericardial effusion - continue home meds fibromyalgia/chronic pain dilaudid and oxycodone for pain Time Attestation Discharge Coordination Time (in mins): 45 Quality: Safe Use of Opioids Does Pt have an Active Cancer Diagnosis on the Problem List?: No Quality: Stroke Does the patient have a stroke diagnosis?: No DS: Data Data Completed and Pending Completed studies during hospitalization [Text1]: Procedures Control Bleeding in Gastrointestinal Tract, Via Natural or Artificial Opening Endoscopic (02/11/25) Excision of Right Kidney, Percutaneous Approach, Diagnostic (02/11/25) Excision of Stomach, Pylorus, Via Natural or Artificial Opening Endoscopic, Diagnostic (02/11/25) Insertion of Endotracheal Airway into Trachea, Via Natural or Artificial Opening (02/11/25) Insertion of Infusion Device into Right Innominate Vein, Percutaneous Approach (02/11/25) Insertion of Infusion Device into Superior Vena Cava, Percutaneous Approach (02/11/25) Insertion of Tunneled Vascular Access Device into Chest Subcutaneous Tissue and Fascia, Percutaneous Approach (02/11/25) Introduction of Mineral-based Topical Hemostatic Agent into Upper GI, Via Natural or Artificial Opening Endoscopic, [employer] 6 (02/11/25) Performance of Urinary Filtration, Intermittent, Less than 6 Hours Per Day (02/11/25) Respiratory Ventilation, 24-96 Consecutive Hours (02/11/25) Transfusion of Nonautologous Red Blood Cells into Peripheral Vein, Percutaneous Approach (02/11/25) Ultrasonography of Right Upper Extremity Veins, Guidance (02/11/25) Ultrasonography of Superior Vena Cava, Guidance (02/11/25) Labs on day of discharge: Laboratory Results - last 24 hr 03/22/25 01:57 U Random Total Protein 298 H Urine Creatinine 84.56 Protein/Creatinin Ratio 3.52 H Discharge Plan Discharge Anticipated Discharge Date/Time: 03/24/25 11:49 Patient Disposition: Home Health Service Discharge Diagnosis: Acute blood loss anemia, GI bleeding, Referrals: [facility] [Other] - 1 Week [facility] [Outside] - 1 Week [facility] Pompa DO [Primary Care Provider, Internal Medicine] - 1 Week Discharge Medications: New daptomycin 500 mg Recon Soln 500 mg IV Q24H Qty: 11 0RF losartan 50 mg Tablet 50 mg PO DAILY Qty: 90 0RF Protocol: Hold for SBP< HOLD for SBP < : 90 labetalol 200 mg Tablet 200 mg PO TID Qty: 270 0RF Protocol: Hold for SBP/HR < HOLD for SBP < : 90 HOLD for HR < : 60 amlodipine 10 mg Tablet 10 mg PO DAILY Qty: 90 0RF Protocol: Hold for SBP< HOLD for SBP < : 90 hydromorphone [Dilaudid] 2 mg tablet 2 mg PO Q6H PRN (Reason: pain (scale score 7-10)) Qty: 20 0RF Rx Instructions: Partial Fill upon patient request. Continued gabapentin 300 mg Capsule 300 mg PO MoWeFr@1800 Qty: 12 0RF sevelamer carbonate 800 mg Tablet 800 mg PO TIDWM Qty: 90 0RF Eliquis 2.5 mg Tablet 2.5 mg PO BID Qty: 60 0RF sucralfate 1 gram Tablet 1 g PO BIDAC Qty: 60 0RF omeprazole 40 mg Capsule,Delayed Release(Dr/Ec) 40 mg PO BID@0630,1630 Qty: 60 0RF sodium bicarbonate 650 mg Tablet 650 mg PO BID Qty: 60 0RF daptomycin 350 mg recon soln 342 mg IV Q24H Rx Instructions: administer over 30 mins calcitriol 0.25 mcg Capsule 0.25 mcg PO DAILY Qty: 30 0RF hydromorphone 2 mg tablet 2 mg PO Q6H PRN (Reason: pain (scale score 7-10)) Qty: 20 0RF Rx Instructions: Partial Fill upon patient request. acetaminophen 650 mg tablet extended release 1,300 mg PO Q8H PRN (Reason: pain) duloxetine 30 mg capsule,delayed release(DR/EC) 60 mg PO DAILY diclofenac sodium 1.5 % drops 40 drp topical QID PRN (Reason: legs) prednisone 10 mg tablet 60 mg PO DAILY Rx Instructions: see taper instructions Discontinued labetalol 100 mg Tablet 100 mg PO TID Qty: 90 0RF Protocol: Hold for SBP/HR < HOLD for SBP < : 90 HOLD for HR < : 60 amlodipine 5 mg Tablet 5 mg PO DAILY Qty: 30 0RF Protocol: Hold for SBP< HOLD for SBP < : 90 Discharge Orders: Discharge Order (Routine); Ordered 03/24/25 Ordered By: Gonzalez Sorensen Diet: Advance to usual diet Activity on Discharge: As tolerated Stand Alone Forms: Patient Portal Discharge page Print Language: Danish Care Plan Goals: recovery from anemia and acute possible gi bleeding Health Concerns: anemia acute blood loss Plan of Treatment: take priolosec as recommended and follow up with your doctor in a week, follow up with the kidney doctor in a week take Daptomycin 500 mg iv daily until April 04, 2025 For blood pressure control Norvasc (amlodipine) dose increased to 10 mg daily Losartan 50 mg daily started Labetalol dose changed from 100 mg 3 times daily to 200 mg 3 times daily Take Dilaudid as recommended for pain Assessment: see above
--- NOTE | 2025-03-24 12:44 | MHC.CM.PN ---
IMM 03/24/25 Patient has received the Midline for IV ABX administration. [facility] performed the teach and patient did well. [facility] will resume services. All discharge info has been sent to [facility] and [facility]. Patient has arranged for transportation home.
--- NOTE | 2025-03-24 13:15 | P.CDIM_ITS ---
PROVIDER RESPONSE TEXT: To clarify, the appropriate diagnosis supported by the clinical indicators: Gastritis: acute QUERY TEXT: PHYSICIAN'S DOCUMENTATION REQUEST Date of Query: 03/24/2025 07:45 AM EDT Patient Name: Trey Maharaj Admit Date: 03/20/2025 Dear Gonzalez Sorensen MD, A review of the medical record indicates additional documentation may be needed. Please review below and update the documentation accordingly. Clinical Indicators: GI Op note dated 03/21/25 Upper Endoscopy - Postoperative diagnosis: Gastritis, GAVE IV PPI and antiemetics. Clarify which of the following accurately represents further specificity to the diagnosis of Gastritis: Possible options might include: Gastritis Acute, chronic, with bleed, spastic, viral, atrophic etc. Other specifics Other (explain) Clinically unable to determine (explain) Thank you, Jessica Wang, CCS, CDIS Use of terms such as suspected, likely, concern for, or probable (associated with a specific diagnosis that is being evaluated, monitored, or treated as if it exists) are acceptable and can be coded in the inpatient setting, when documented at the time of discharge. Please use your independent medical judgment in providing your response. THIS QUERY IS PART OF THE PERMANENT MEDICAL RECORD
--- NOTE | 2025-03-31 08:04 | P.CDIM_ITS ---
PROVIDER RESPONSE TEXT: To clarify, the appropriate diagnosis supported by the clinical indicators: No - biopsy was not performed this admission QUERY TEXT: PHYSICIAN'S DOCUMENTATION REQUEST Date of Query: 03/25/2025 12:26 PM EDT Patient Name: Trey Maharaj Admit Date: 03/20/2025 Dear Leland Dunn MD, RETROSPECTIVE QUERY A review of the medical record indicates additional documentation may be needed. Please review below and update the documentation accordingly. Clinical Indicators: Operative note dated 03/21/25 - Flexible Transoral Upper Gastrointestinal Endoscopy with APC of GAVE Esophagus: GE junction at 37 cms, hiatal hernia 37 to 40 cms Stomach: Moderate patchy erythema with red streaks in the stomach suggestive of GAVE- Grade 2 flap valve on retroflexed examination of the cardia. Intervention: Biopsies as noted above. Post-op diagnosis: GAVE, Gastritis Based on the above, could you clarify if a biopsy was performed on this patient: Yes - biopsy was performed please provide specifics No - biopsy was not performed this admission Other (explain) Clinically unable to determine (explain) Thank you, Jessica Wang, CCS, CDIS Use of terms such as suspected, likely, concern for, or probable (associated with a specific diagnosis that is being evaluated, monitored, or treated as if it exists) are acceptable and can be coded in the inpatient setting, when documented at the time of discharge. Please use your independent medical judgment in providing your response. THIS QUERY IS PART OF THE PERMANENT MEDICAL RECORD
== END 2025-03-24 14:31 | disposition home health service (06) | DRG 391 ==
LOC: HO.ED 20:05 → HO.EDOVER 20:37 → HO.IMC 03-20 16:30 → HO.S3 03-23 08:18
PROVIDERS: Anesthesiology; Internal Medicine Critical Care Medicine; Internal Medicine Gastroenterology; Internal Medicine Hypertension Specialist; Internal Medicine Medical Oncology; Physician Assistant Medical; Admitting Provider Physician Assistant; Emergency Provider Internal Medicine; PCP Student in an Organized Health Care Education/Training Program; Visit Provider Internal Medicine
PROC: 0DJ08ZZ Inspection of Upper Intestinal Tract, Via Natural or Artificial Opening Endoscopic (ICD-10-PCS; CPT 43235; principal; 2025-03-21 11:50)
DX: K31.819 Angiodysplasia of stomach and duodenum without bleeding (principal); N17.0 Acute kidney failure with tubular necrosis; N18.6 End stage renal disease; I12.0 Hypertensive chronic kidney disease with stage 5 chronic kidney disease or end stage renal disease; T82.868A Thrombosis due to vascular prosthetic devices, implants and grafts, initial encounter; I82.C11 Acute embolism and thrombosis of right internal jugular vein; F17.210 Nicotine dependence, cigarettes, uncomplicated; M32.14 Glomerular disease in systemic lupus erythematosus; Y82.9 Unspecified medical devices associated with adverse incidents; K29.00 Acute gastritis without bleeding; Z71.6 Tobacco abuse counseling; M79.7 Fibromyalgia; R19.5 Other fecal abnormalities; D63.1 Anemia in chronic kidney disease; Z79.01 Long term (current) use of anticoagulants; Z99.2 Dependence on renal dialysis; Z86.14 Personal history of Methicillin resistant Staphylococcus aureus infection; Z86.711 Personal history of pulmonary embolism; Z79.891 Long term (current) use of opiate analgesic; Z79.899 Other long term (current) drug therapy
CPT/HCPCS: 36410; 36415; 36589; 80048; 80053; 81001; 82272; 82570; 82575; 82728; 83540; 83615; 83735; 84156; 84702; 85014; 85018; 85025; 85027; 86160; 86225; 86850; 86900; 86901; 86923; 93005; 93971; 99285; J0878; J1171; J2003; J2470; J2704; J3360; P9016

== ENCOUNTER → 2025-03-19 18:13 | Outpatient (BNV) | payer MEDICARE, MEDICAID, SELFPAY | PROVIDERS: Admitting Provider Physician Assistant; Emergency Provider Internal Medicine; Visit Provider Internal Medicine Cardiovascular Disease | DX: I51.7 Cardiomegaly (principal); R00.0 Tachycardia, unspecified | CPT/HCPCS: 93010 ==

== ENCOUNTER 2025-03-19 20:29 | Outpatient (BNV) | payer MEDICARE, MEDICAID, SELFPAY | END 2025-03-22 08:16 | PROVIDERS: Admitting Provider Physician Assistant; Emergency Provider Internal Medicine; PCP Student in an Organized Health Care Education/Training Program; Visit Provider Radiology Diagnostic Radiology | DX: I82.C11 Acute embolism and thrombosis of right internal jugular vein (principal) | CPT/HCPCS: 93971 ==

== ENCOUNTER 2025-03-19 20:29 | Outpatient (BNV) | payer MEDICARE, MEDICAID, SELFPAY | END 2025-03-23 11:30 | PROVIDERS: Admitting Provider Physician Assistant; Emergency Provider Internal Medicine; PCP Student in an Organized Health Care Education/Training Program; Visit Provider Radiology Diagnostic Radiology | DX: Z45.2 Encounter for adjustment and management of vascular access device (principal) | CPT/HCPCS: 36589 ==

== ENCOUNTER → 2025-03-19 20:29 | Outpatient (BNV) | payer MEDICARE, MEDICAID, SELFPAY | PROVIDERS: Admitting Provider Physician Assistant; Emergency Provider Internal Medicine; PCP Student in an Organized Health Care Education/Training Program; Visit Provider Nurse Practitioner Family | DX: N18.30 Chronic kidney disease, stage 3 unspecified (principal); N17.9 Acute kidney failure, unspecified; N18.9 Chronic kidney disease, unspecified | CPT/HCPCS: 99231; 99232 ==

== ENCOUNTER → 2025-03-19 20:29 | Outpatient (BNV) | payer MEDICARE, MEDICAID, SELFPAY | PROVIDERS: Admitting Provider Physician Assistant; Emergency Provider Internal Medicine; Visit Provider Internal Medicine Gastroenterology | DX: K92.2 Gastrointestinal hemorrhage, unspecified (principal) | CPT/HCPCS: 99222 ==

== ENCOUNTER → 2025-03-19 20:29 | Outpatient (BNV) | payer MEDICARE, MEDICAID, SELFPAY | PROVIDERS: Admitting Provider Physician Assistant; Emergency Provider Internal Medicine; PCP Student in an Organized Health Care Education/Training Program; Visit Provider Internal Medicine Medical Oncology | DX: N18.6 End stage renal disease (principal); D63.1 Anemia in chronic kidney disease; Z99.2 Dependence on renal dialysis | CPT/HCPCS: 99222 ==

== ENCOUNTER → 2025-03-19 20:29 | Outpatient (BNV) | payer MEDICARE, MEDICAID, SELFPAY | PROVIDERS: Admitting Provider Physician Assistant; Emergency Provider Internal Medicine; PCP Student in an Organized Health Care Education/Training Program; Visit Provider Physician Assistant Surgical | DX: I82.409 Acute embolism and thrombosis of unspecified deep veins of unspecified lower extremity (principal) | CPT/HCPCS: 99222 ==

== ENCOUNTER → 2025-03-19 20:29 | Outpatient (BNV) | payer MEDICARE, MEDICAID, SELFPAY | PROVIDERS: Admitting Provider Physician Assistant; Emergency Provider Internal Medicine; PCP Student in an Organized Health Care Education/Training Program; Visit Provider Internal Medicine Critical Care Medicine | DX: N18.30 Chronic kidney disease, stage 3 unspecified (principal); N17.9 Acute kidney failure, unspecified | CPT/HCPCS: 99232 ==

== ENCOUNTER → 2025-03-19 20:29 | Outpatient (BNV) | payer MEDICARE, MEDICAID, SELFPAY | PROVIDERS: Admitting Provider Physician Assistant; Emergency Provider Internal Medicine; Visit Provider Internal Medicine | DX: D64.9 Anemia, unspecified (principal); N18.30 Chronic kidney disease, stage 3 unspecified; N17.9 Acute kidney failure, unspecified; N18.9 Chronic kidney disease, unspecified; N18.6 End stage renal disease; Z99.2 Dependence on renal dialysis | CPT/HCPCS: 99223; 99232; 99499 ==

== ENCOUNTER 2025-04-01 09:39 | Outpatient (REF) | payer MEDICARE, MEDICAID, SELFPAY ==
[2025-04-01 12:11] LABS: Anion Gap 12 (12-20); Blood Urea Nitrogen 35 mg/dL (9-16); Carbon Dioxide 25 mmol/L (22-29); Chloride 110 mmol/L (96-108); Estimated Glomerular Filt Rate 46; Potassium 4.2 mmol/L (3.3-5.1); Sodium 143 mmol/L (135-145)
[2025-04-01 12:52] LABS: Protein/Creatinine Ratio, Ur 9.01 (<0.2); Total Protein Urine Random 331 mg/dL (<12)
== END 2025-04-01 09:40 | disposition home or self-care (01) ==
LOC: HO.LAB 09:39
PROVIDERS: Visit Provider Internal Medicine Nephrology
DX: R80.8 Other proteinuria (principal); N17.9 Acute kidney failure, unspecified; N18.9 Chronic kidney disease, unspecified
CPT/HCPCS: 36415; 80051; 82565; 82570; 84156; 84520; 99212

== ENCOUNTER 2025-04-01 09:39 | Outpatient (AMB) | payer MEDICARE, MEDICAID, SELFPAY ==
--- NOTE | 2025-04-01 09:44 | HO.NEPHOV ---
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 She had weakness and fatigue and received 2 units of PRBC in the ED. 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 Elquis was on hold and given IV PPI. She had EGD done on EGD 03/21 and found to have possible GAVE and gastritis and recommended oral PPI. Her Acute right jugular vein clot, provoked by catherter insertion. Hematology had recommend of anticoagulation, CTA negative for PE( chest CTA 03/04/25, repeat US 03/22 showed partial, non oclusive clot remains in the right jugular and given no active bleed and hemoglobin been stable, she's restarted on eliquis 2.5 mg twice daily per heme advise and should be treated for 3 months from mid February). She has made renal recovery and her HD catheter was removed. She had been on prednisone 60 mg daily, which is being tapered . She is on antihypertensives. 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 Patient Tobacco Use Status: Current everyday Tobacco user Tobacco use type: Cigarette Cigarette Packs Per Day: 0.5 Cigarettes Per Day: 3 Years Smoked: 7 Second Hand Smoke Exposure: Yes Substance Use Type: Marijuana Advance Directives Date on File: 04/03/22 service: No Current occupational status: disabled Review of Systems Const All systems reviewed & are unremarkable except as noted in HPI and below Physical Exam Const General: comfortable and no acute distress Orientation/consciousness: patient oriented x3 HEENT Head: Yes normocephalic Mouth: Normal oral and palatal mucosa present Eyes EOM: EOMs intact bilaterally Neck Neck: Yes supple Resp Auscultation: clear to auscultation bilaterally Cardio Jugular venous distension: no JVD Rate: regular rate GI Palpation (GI): Soft to palpation Auscultation: normal bowel sounds General: Yes no CVA tenderness Back/Spine/Pelvis Back: no CVA tenderness Skin General skin exam: no rashes or lesions noted Neuro General: patient oriented x3 and moves all extremities Extrem General: Yes no pedal edema Results Reviewed Nephrology Results: Hgb, (12.0-16.0) 8.8 g/dl L 03/22/25 WBC, (4.8-10.8) 10.2 X10*3/uL 03/22/25 Plt Count, (160-400) 177 X10*3/uL 03/22/25 Sodium, (135-145) 141 mmol/L 03/23/25 Potassium, (3.3-5.1) 4.3 mmol/L 03/23/25 Chloride, (96-108) 107 mmol/L 03/23/25 Carbon Dioxide, (22-29) 27 mmol/L 03/23/25 BUN, (9-16) 32 mg/dL H 03/23/25 Creatinine, (0.5-1.4) 1.29 mg/dL 03/23/25 Calcium, (8.4-10.2) 8.7 mg/dL Δ 03/23/25 Urine Protein, (Neg-Trace) 300 (3+) mg/dL H 03/22/25 Urine Creatinine 84.56 mg/dL 03/22/25 Protein/Creatinin Ratio, (<0.2) 3.52 H 03/22/25 Renal US 03/20/22 Assessment & Plan Assessment & Plan (1) Acute kidney injury superimposed on chronic kidney disease: Code(s): N17.9 - Acute kidney failure, unspecified; N18.9 - Chronic kidney disease, unspecified Category: Medical (2) CKD (chronic kidney disease) stage 3, GFR 30-59 ml/min: Code(s): N18.30 - Chronic kidney disease, stage 3 unspecified Category: Medical Qualifiers: Chronic kidney disease stage 3 subtype: stage 3a (GFR 45-59) Qualified Code(s): N18.31 - Chronic kidney disease, stage 3a (3) Hypertension: Code(s): I10 - Essential (primary) hypertension Category: Medical Qualifiers: Hypertension type: secondary to other renal disorders Qualified Code(s): I15.1 - Hypertension secondary to other renal disorders (4) Lupus: Comment: Onset March 2016: positive REN, anti-DNA, anti-Sm, anti-FLEET DRIVER, SS-A, SS-B. Anemia, arthritis Eye exam OK for hydroxychloroquine so it was started 2016 Proteinuria - fall 2020. Renal bx(limited sample- membranous and interstitial disease - repeat bx done recently) Code(s): M32.9 - Systemic lupus erythematosus, unspecified Category: Medical (5) Pericardial effusion: Code(s): I31.3 - Pericardial effusion (noninflammatory) Category: Medical (6) Proteinuria: Code(s): R80.9 - Proteinuria, unspecified Category: Medical Qualifiers: Proteinuria type: other Qualified Code(s): R80.8 - Other proteinuria Plan KALEIGH from class 5 lupus nephritis and ATN from septic shock per recent renal biopsy. Her creatinine clearance now 21, she is making urine . 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 Reduced prednisone to 50 mg for a week followed by 40 mg. Reviewed anti-DS DNA ab and complement levels. May need to add cellcept for treatment of lupus nephritis. On ARB for significant proteinuria. Labs ordered for today and in 2 weeks. F/U given Orders: Orders Electrolytes Today N17.9 - Acute kidney failure, unspecified, N18.9 - Chronic kidney disease, unspecified, R80.8 - Other proteinuria Electrolytes 2 Weeks R80.8 - Other proteinuria Creatinine 2 Weeks R80.8 - Other proteinuria Protein Creatinine Ratio, Ur Today R80.8 - Other proteinuria Creatinine Today N17.9 - Acute kidney failure, unspecified, N18.9 - Chronic kidney disease, unspecified, R80.8 - Other proteinuria Blood Urea Nitrogen Today N17.9 - Acute kidney failure, unspecified, N18.9 - Chronic kidney disease, unspecified, R80.8 - Other proteinuria Blood Urea Nitrogen 2 Weeks R80.8 - Other proteinuria Coding Level of Care Code Est Pt Level 4 (89620) Diagnoses Acute kidney injury superimposed on chronic kidney disease N17.9; N18.9 Stage 3a chronic kidney disease N18.31 Chronic kidney disease stage 3 subtype: stage 3a (GFR 45-59) Hypertension secondary to other renal disorders I15.1 Hypertension type: secondary to other renal disorders Lupus M32.9 Pericardial effusion I31.3 Other proteinuria R80.8 Proteinuria type: other
--- OUTSIDE RECORDS SUMMARY | 2025-04-01 09:47 | XMS_ITS | Encounter Summary ---
Demographics Address [address] [place] [address] Home Phone Mobile Phone Email Address Preferred Language en Marital Status Unknown Christianity Affiliation Unknown Race Unknown Ethnic Group or Author Organization [facility] Address [address] [place] [address] Phone Care Team Providers Care Analysis Director Name Role Phone Unavailable Primary Care Provider Unavailabl e Encounter Details Date Type Department Care Team (Late st Contact Info) Description 07/03/2023 Office Communication [facility] [address] [place] [phone] True Tang Social History Tobacco Use Types Packs/Day Years Used Date Smoking Tobacco: Never Assessed Comments Unknown Sex and Gender Information Value Date Recorded Sex Assigned at Not on file Legal Sex Female 7:12 AM EDT Gender Identity Not on file Sexual Orientation Not on file documented as of this encounter Plan of Treatment Not on file documented as of this encounter Visit Diagnoses Not on filedocumented in this encounter
--- OUTSIDE RECORDS SUMMARY | 2025-04-01 09:47 | XMS_ITS | Encounter Summary ---
Author Organization [facility] Address [address] [place] [address] Care Team Providers Care Java Developer Analyst Name Role Phone Maco Carver MD Primary Care Provider [phone] Encounter Details Date Type Department Care Team (Late st Contact Info) Description 03/29/2025 Lab Requisition [facility] - Main Lab [address] [facility] [place] [address] Gonzalez Sorensen MD [address] [place] [address] Social History Tobacco Use Types Packs/Day Years Used Date Smoking Tobacco: Light Smoker Cigarettes 0.1 12.6 Started: 08/07/2012 Smokeless Tobacco: Never Alcohol Use Standard Drinks/Week Comments Yes 0 (1 standard drink = 0.6 oz pur e alcohol) Comments Unknown Sex and Gender Information Value Date Recorded Sex Assigned at Not on file Legal Sex Female 10:47 PM EST Gender Identity Not on file Sexual Orientation Not on file documented as of this encounter Plan of Treatment Not on file documented as of this encounter Procedures Procedure Name Priority Date/Time Associated Diagnosis Comments CBC WITH AUTO DIFFERENTIAL Routine 03/29/2025 3:20 PM EDT CBC AND DIFFERENTIAL Routine 03/29/2025 3:20 PM EDT CREATINE KINASE Routine 03/29/2025 3:20 PM EDT BASIC METABOLIC PANEL Routine 03/29/2025 3:20 PM EDT documented in this encounter Results * (ABNORMAL) CBC auto differential (03/29/2025 3:20 PM EDT) [facility] WBC 10.1 4.8 - 10.8 K/mcL LAB HEMETOLOGY METHOD 03/29/2025 7:13 PM EDT [facility] RBC 3.20(L) 3.80 - 4.80 M/mcL LAB HEMETOLOGY METHOD 03/29/2025 7:13 PM EDT [facility] Hemoglobin 9.7(L) 11.5 - 16.0 g/dL LAB [facility]EMETOLOGY [facility] Hematocrit 32.5(L) 35.0 - 47.0 % LAB HEMETOLOGY METHOD 03/29/2025 7[facility] MCV 103.2(H) 79.0 - 98.0 FL LAB HEMETOLOGY METHOD 03/29/2025 7[facility] MCH 30.8 27.0 - 32.0 pcg LAB HEMETOLOGY METHOD 03/29/2025 7:[facility] MCHC 29.8(L) 32.0 - 37.0 g/dL LAB HEMETOLOGY METHOD 03/29/2025 7:[facility] RDW 15.7(H) 11.0 - 15.0 % LAB HEMETOLOGY METHOD 03/29/2025 7:[facility] Platelets 325 130 - 400 K/mcL LAB HEMETOLOGY METHOD 03/29/2025 7:[facility] MPV 9.4 7.0 - 11.0 FL LAB HEMETOLOGY METHOD 03/29/2025 7:[facility] NRBC 0.0 <1.0 % LAB HEMETOLOGY METHOD 03/29/2025 7:[facility] NRBC Absolute 0.00 <0.10 K/mcL LAB HEMETOLOGY METHOD 03/29/2025 7:[facility] Neutrophils Relative 86.2 % LAB HEMETOLOGY METHOD 03/29/2025 7:13 PM [facility] Lymphocytes Relative 11.0 % LAB HEMETOLOGY METHOD 03/29/2025 7:13 PM [facility] Monocytes Relative 1.5 % LAB HEMETOLOGY METHOD 03/29/2025 7:13 PM [facility] Eosinophils Relative 0.1 % LAB HEMETOLOGY METHOD 03/29/2025 7:13 PM [facility] Basophils Relative 0.1 % LAB HEMETOLOGY METHOD 03/29/2025 7:13 PM [facility] Immature Granulocytes Relative 1.1 % LAB HEMETOLOGY METHOD 03/29/2025 7:13 PM [facility] Neutrophils Absolute 8.70(H) 1.50 - 7.00 K/mcL LAB HEMETOLOGY METHOD 03/29/2025 7:13 PM [facility] Lymphocytes Absolute 1.11 1.00 - 5.00 K/mcL LAB HEMETOLOGY METHOD 03/29/2025 7:13 PM [facility] Monocytes Absolute 0.15(L) 0.20 - 1.00 K/mcL LAB HEMETOLOGY METHOD 03/29/2025 7:13 PM [facility] Eosinophils Absolute 0.01 0.00 - 0.50 K/mcL LAB HEMETOLOGY METHOD 03/29/2025 7:13 PM [facility] Basophils Absolute 0.01 0.00 - 0.20 K/mcL LAB HEMETOLOGY METHOD 03/29/2025 7:13 PM [facility] Immature Granulocytes Absolute 0.11(H) 0.00 - 0.03 K/mcL LAB HEMETOLOGY METHOD 03/29/2025 7:13 PM EDT [facility] Blood Venous blood specimen / Unknown 03/29/2025 3:20 PM EDT 03/29/2025 6:28 PM EDT us Gonzalez Sorensen MD LAB BLOOD ORDERABLES Final Re sult Performing Organization Address City/[facility]/ZIP Co de Phone Number [facility] [address] [place] [address], [place] [phone] * (ABNORMAL) Creatine kinase (03/29/2025 3:20 PM EDT) Pathologist [facility] Total CK 289(H) 22 - 269 unit/L LAB CHEMISTRY METHOD 03/29/2025 7:38 PM EDT [facility] Blood Venous blood specimen / Unknown 03/29/2025 3:20 PM EDT 03/29/2025 6:28 PM EDT us Gonzalez Sorensen MD LAB BLOOD ORDERABLES Final Re sult Performing Organization Address City/[facility]/ZIP Co de Phone Number [facility] [address] [place] [address], [place] [phone] * (ABNORMAL) Basic metabolic panel (03/29/2025 3:20 PM EDT) [facility] Sodium 142 133 - 145 mmol/L LAB CHEMISTRY METHOD 03/29/2025 7:38 PM EDT [facility] Potassium 4.8 3.5 - 5.5 mmol/L LAB CHEMISTRY METHOD 03/29/2025 7:38 PM EDT [facility] Chloride 110 96 - 110 mmol/L LAB CHEMISTRY METHOD 03/29/2025 7:38 PM EDT [facility] CO2 24 21 - 32 mmol/L LAB CHEMISTRY METHOD 03/29/2025 7:38 PM EDT [facility] Anion Gap 8 3 - 11 LAB CHEMISTRY METHOD 03/29/2025 7:38 PM EDT [facility] Glucose 130(H) 70 - 100 mg/dL LAB CHEMISTRY METHOD 03/29/2025 7:38 PM EDT [facility] BUN 26(H) 5 - 25 mg/dL LAB CHEMISTRY METHOD 03/29/2025 7:38 PM EDT [facility] Creatinine 1.57(H) 0.50 - 1.10 mg/dL LAB CHEMISTRY METHOD 03/29/2025 7:38 PM EDT [facility] eGFR 45(L) >=60 mL/min/1. 73m2 LAB CHEMISTRY METHOD 03/29/2025 7:38 PM EDT [facility] Comment:Calculation based on the Chronic Kidney Disease Epidemiology Collaboration (CKD-EPI) equation refit without adjustment for race. BUN/Creatinine Ratio 16.6 LAB CHEMISTRY METHOD 03/29/2025 7:38 PM EDT [facility] Calcium 8.4(L) 8.5 - 10.5 mg/dL LAB CHEMISTRY METHOD 03/29/2025 7:38 PM EDT [facility] Blood Venous blood specimen / Unknown 03/29/2025 3:20 PM EDT 03/29/2025 6:28 PM EDT us Gonzalezpam Sorensen MD LAB BLOOD ORDERABLES Final Re sult [facility] [address] [place] [address], documented in this encounter Visit Diagnoses Not on filedocumented in this encounter Care Teams Java Developer Analyst Relationship Specialty Start Date End Date Maco Carver MD [address] [place] [phone] PCP - General 07/05/21 documented as of this encounter
[2025-04-01 09:49] VITALS: BP 154/90; BMI 20.7
== END 2025-04-01 10:18 | disposition home or self-care (01) ==
LOC: HO.HKA 09:40
PROVIDERS: Visit Provider Internal Medicine Nephrology
DX: N17.9 Acute kidney failure, unspecified (principal); N18.9 Chronic kidney disease, unspecified; N18.31 Chronic kidney disease, stage 3a; I15.1 Hypertension secondary to other renal disorders; M32.9 Systemic lupus erythematosus, unspecified; I31.39 Other pericardial effusion (noninflammatory); R80.8 Other proteinuria
CPT/HCPCS: 99214

== ENCOUNTER 2025-04-15 10:45 | Outpatient (AMB) | payer MEDICARE, MEDICAID, SELFPAY ==
--- OUTSIDE RECORDS SUMMARY | 2025-04-15 10:53 | XMS_ITS | Encounter Summary ---
Author Organization [facility] Address [address] [place] [address] Care Team Providers Care Dynamite Packing Machine Operator Name Role Phone Maco Carver MD Primary Care Provider [phone] Encounter Details Date Type Department Care Team (Late st Contact Info) Description 03/29/2025 Lab Requisition [facility] - Main Lab [address] [facility] [place] [address] Gonzalez Sorensen MD [address] [place] [address] Bacterial infection, unspecified Social History Tobacco Use Types Packs/Day Years Used Date Smoking Tobacco: Light Smoker Cigarettes 0.1 12.7 Started: 08/07/2012 Smokeless Tobacco: Never Alcohol Use [...] AUTO DIFFERENTIAL Routine 03/29/2025 3:20 PM EDT Bacterial infection, unspecified CBC AND DIFFERENTIAL Routine 03/29/2025 3:20 PM EDT Bacterial infection, unspecified CREATINE KINASE Routine 03/29/2025 3:20 PM EDT Bacterial infection, unspecified BASIC METABOLIC PANEL Routine 03/29/2025 3:20 PM EDT Bacterial infection, unspecified documented in this encounter Results * (ABNORMAL) CBC auto differential (03/29/2025 3:20 PM EDT) [facility] Signature WBC 10.1 4.8 - 10.8 K/mcL LAB HEMETOLOGY METHOD 03/29/2025 7:[facility] RBC 3.20(L) 3.80 - 4.80 M/mcL LAB HEMETOLOGY METHOD 03/29/2025 7:13 PM EDT [facility] Hemoglobin 9.7(L) 11.5 - 16.0 g/dL LAB HEMETOLOGY METHOD 03/29/2025 7:13 [facility] Hematocrit 32.5(L) 35.0 - 47.0 % LAB HEMETOLOGY METHOD 03/29/2025 7:13 PM [facility] MCV 103.2(H) 79.0 - 98.0 FL LAB HEMETOLOGY METHOD 03/29/2025 7:13 PM [facility] MCH 30.8 27.0 - 32.0 pcg LAB HEMETOLOGY METHOD 03/29/2025 7:13 PM [facility] MCHC 29.8(L) 32.0 - 37.0 g/dL LAB HEMETOLOGY METHOD 03/29/2025 7:13 PM [facility] RDW 15.7(H) 11.0 - 15.0 % LAB HEMETOLOGY METHOD 03/29/2025 7:13 PM [facility] Platelets 325 130 - 400 K/mcL LAB HEMETOLOGY METHOD 03/29/2025 7:13 PM [facility] MPV 9.4 7.0 - 11.0 FL LAB HEMETOLOGY METHOD 03/29/2025 7:13 PM [facility] NRBC 0.0 <1.0 % LAB HEMETOLOGY METHOD 03/29/2025 7:13 PM EDT [facility] NRBC Absolute 0.00 <0.10 K/mcL LAB HEMETOLOGY METHOD 03/29/2025 7:13 PM [facility] Neutrophils Relative 86.2 % LAB HEMETOLOGY METHOD 03/29/2025 7:13 [facility] Lymphocytes Relative 11.0 % LAB HEMETOLOGY METHOD 03/29/2025 7:13 PM [facility] Monocytes Relative 1.5 % LAB HEMETOLOGY METHOD 03/29/2025 7:13 PM [facility] Eosinophils Relative 0.1 % LAB HEMETOLOGY METHOD 03/29/2025 7:13 PM [facility] Basophils Relative 0.1 % LAB HEMETOLOGY METHOD 03/29/2025 7:13 PM [facility] Immature Granulocytes Relative 1.1 % LAB HEMETOLOGY METHOD 03/29/2025 7:13 PM [facility] Neutrophils Absolute 8.70(H) 1.50 - 7.00 K/mcL LAB HEMETOLOGY METHOD 03/29/2025 7:13 PM [facility] Lymphocytes Absolute 1.11 1.00 - 5.00 K/mcL LAB HEMETOLOGY METHOD 03/29/2025 7:13 PM [facility] Monocytes Absolute 0.15(L) 0.20 - 1.00 K/mcL LAB HEMETOLOGY METHOD 03/29/2025 7:13 PM [facility] Eosinophils Absolute 0.01 0.00 - 0.50 K/mcL LAB HEMETOLOGY METHOD 03/29/2025 7:13 PM [facility] Basophils Absolute 0.01 0.00 - 0.20 K/mcL LAB HEMETOLOGY METHOD 03/29/2025 7:13 PM [facility] Immature Granulocytes Absolute 0.11(H) 0.00 - 0.03 K/mcL LAB HEMETOLOGY METHOD 03/29/2025 7:13 PM EDT [facility] Blood Venous blood specimen / Unknown 03/29/2025 3:20 PM EDT 03/29/2025 6:28 PM EDT Gonzalez Sorensen MD LAB BLOOD ORDERABLES Final Re sult Performing Organization Address City/[facility]/ZIP Co de Phone Number [facility] [address] [place] [address], [place] [phone] * (ABNORMAL) Creatine kinase (03/29/2025 3:20 PM EDT) Total CK 289(H) 22 - 269 unit/L LAB CHEMISTRY METHOD 03/29/2025 7:38 PM EDT [facility] Blood Venous blood specimen / Unknown 03/29/2025 3:20 PM EDT 03/29/2025 6:28 PM EDT us Gonzalez Sorensen MD LAB BLOOD ORDERABLES Final Re sult Performing Organization Address [facility]/ZIP Co de Phone Number [facility] [address] [place] [address], [place] [phone] * (ABNORMAL) Basic metabolic panel (03/29/2025 3:20 PM EDT) Sodium 142 133 - 145 mmol/L LAB CHEMISTRY METHOD 03/29/2025 7:38 PM EDT [facility] Potassium 4.8 3.5 - 5.5 mmol/L LAB CHEMISTRY METHOD 03/29/2025 7:38 PM EDT [facility] Chloride 110 96 - 110 mmol/L LAB CHEMISTRY METHOD 03/29/2025 7:38 PM EDT [facility] CO2 24 21 - 32 mmol/L LAB CHEMISTRY METHOD 03/29/2025 7:38 PM T [facility] Anion Gap 8 3 - 11 LAB CHEMISTRY METHOD 03/29/2025 7:38 PM [facility] Glucose 130(H) 70 - 100 mg/dL LAB CHEMISTRY METHOD 03/29/2025 7:38 PM [facility] BUN 26(H) 5 - 25 mg/dL LAB CHEMISTRY METHOD 03/29/2025 7:38 PM [facility] Creatinine 1.57(H) 0.50 - 1.10 mg/dL LAB CHEMISTRY METHOD 03/29/2025 7:38 PM [facility] eGFR 45(L) >=60 mL/min/1. 73m2 LAB CHEMISTRY METHOD 03/29/2025 7:38 PM [facility] Comment:Calculation based on the Chronic Kidney Disease Epidemiology Collaboration (CKD-EPI) equation refit without adjustment for race. BUN/Creatinine Ratio 16.6 LAB CHEMISTRY METHOD 03/29/2025 7:38 PM [facility] Calcium 8.4(L) 8.5 - 10.5 mg/dL LAB CHEMISTRY METHOD 03/29/2025 7:38 PM [facility] Blood Venous blood specimen / Unknown 03/29/2025 3:20 PM EDT 03/29/2025 6:28 PM EDT us Gonzalezpam Sorensen MD LAB BLOOD ORDERABLES Final Re sult [facility] [address] [place] [address], documented in this encounter Visit Diagnoses Diagnosis Bacterial infection, unspecified documented in this encounter Care Teams Dynamite Packing Machine Operator Relationship Specialty Start Date End Date Maco Carver MD [address] [place] [phone] PCP - General 07/05/21 documented as of this encounter
--- OUTSIDE RECORDS SUMMARY | 2025-04-15 10:53 | XMS_ITS | Encounter Summary ---
Demographics Address [address] [place] [address] Home Phone Mobile Phone Email Address Preferred Language en Marital Status Unknown Orthodoxy Affiliation Unknown Race Unknown Ethnic Group or Author Organization [facility] Address [address] [place] [address] Phone Care Team Providers Care Head Cashier Name Role Phone Unavailable Primary Care Provider Unavailabl e Encounter Details Date Type Department Care Team (Late st Contact Info) Description 07/03/2023 Office Communication [facility] [address] [place] [phone] True Tang Social History Tobacco Use Types [...]
--- NOTE | 2025-04-15 10:56 | HO.NEPHOV ---
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 She had weakness and fatigue and received 2 units of PRBC in the ED. 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 Elquis was on hold and given IV PPI. She had EGD done on EGD 03/21 and found to have possible GAVE and gastritis and recommended oral PPI. Her Acute right jugular vein clot, provoked by catherter insertion. Hematology had recommend of anticoagulation, CTA negative for PE( chest CTA 03/04/25, repeat US 03/22 showed partial, non oclusive clot remains in the right jugular and given no active bleed and hemoglobin been stable, she's restarted on eliquis 2.5 mg twice daily per heme advise and should be treated for 3 months from mid February). She has made renal recovery and her HD catheter was removed. She had been on prednisone 60 mg daily, which is being tapered . She is on antihypertensives. 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 Patient Tobacco Use Status: Current everyday Tobacco user Tobacco use type: Cigarette Cigarette Packs Per Day: 0.5 Cigarettes Per Day: 3 Years Smoked: 7 Second Hand Smoke Exposure: Yes Substance Use Type: Marijuana Advance Directives Date on File: 04/03/22 service: No Current occupational status: disabled Physical Exam Vital Signs: Last Vital Signs BP 120/52 L 04/15/25 11:00 BMI result Body Mass Index 21.9 Const General: comfortable and no acute distress Orientation/consciousness: patient oriented x3 HEENT Head: Yes normocephalic Mouth: Normal oral and palatal mucosa present Eyes EOM: EOMs intact bilaterally Neck Neck: Yes supple Resp Auscultation: clear to auscultation bilaterally Cardio Jugular venous distension: no JVD Rate: regular rate GI Palpation (GI): Soft to palpation Auscultation: normal bowel sounds General: Yes no CVA tenderness Back/Spine/Pelvis Back: no CVA tenderness Skin General skin exam: no rashes or lesions noted Neuro General: patient oriented x3 and moves all extremities Extrem General: Yes no pedal edema Results Reviewed Nephrology Results: Hgb, (12.0-16.0) 8.8 g/dl L 03/22/25 WBC, (4.8-10.8) 10.2 X10*3/uL 03/22/25 Plt Count, (160-400) 177 X10*3/uL 03/22/25 Sodium, (135-145) 143 mmol/L 04/01/25 Potassium, (3.3-5.1) 4.2 mmol/L 04/01/25 Chloride, (96-108) 110 mmol/L H 04/01/25 Carbon Dioxide, (22-29) 25 mmol/L 04/01/25 BUN, (9-16) 35 mg/dL H 04/01/25 Creatinine, (0.5-1.4) 1.34 mg/dL 04/01/25 Calcium, (8.4-10.2) 8.7 mg/dL Δ 03/23/25 Urine Protein, (Neg-Trace) 300 (3+) mg/dL H 03/22/25 Urine Creatinine 36.75 mg/dL 04/01/25 Protein/Creatinin Ratio, (<0.2) 9.01 H 04/01/25 Renal US 03/20/22 Assessment & Plan Assessment & Plan (1) Proteinuria: Code(s): R80.9 - Proteinuria, unspecified Category: Medical Qualifiers: Proteinuria type: other Qualified Code(s): R80.8 - Other proteinuria (2) Lupus nephritis: Code(s): M32.14 - Glomerular disease in systemic lupus erythematosus Category: Medical (3) Essential hypertension: Code(s): I10 - Essential (primary) hypertension Category: Medical Plan [place] from class 5 lupus nephritis and ATN from septic shock per recent renal biopsy. Her creatinine clearance now 21, she is making urine . 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 Reduced prednisone to 30 mg for a week followed by 20 mg. Reviewed anti-DS DNA ab and complement levels. May need to add cellcept for treatment of lupus nephritis. On ARB for significant proteinuria. Labs ordered in 4 weeks. F/U given Orders: Orders Protein Creatinine Ratio, Ur 4 Weeks I10 - Essential (primary) hypertension, M32.14 - Glomerular disease in systemic lupus erythematosus, R80.8 - Other proteinuria Blood Urea Nitrogen 4 Weeks I10 - Essential (primary) hypertension, M32.14 - Glomerular disease in systemic lupus erythematosus, R80.8 - Other proteinuria Albumin Level 4 Weeks I10 - Essential (primary) hypertension, M32.14 - Glomerular disease in systemic lupus erythematosus, R80.8 - Other proteinuria Complete Blood Count Auto Diff 4 Weeks I10 - Essential (primary) hypertension, M32.14 - Glomerular disease in systemic lupus erythematosus, R80.8 - Other proteinuria Creatinine 4 Weeks I10 - Essential (primary) hypertension, M32.14 - Glomerular disease in systemic lupus erythematosus, R80.8 - Other proteinuria Electrolytes 4 Weeks I10 - Essential (primary) hypertension, M32.14 - Glomerular disease in systemic lupus erythematosus, R80.8 - Other proteinuria Coding Level of Care Code Est Pt Level 4 (05683) Diagnoses Other proteinuria R80.8 Proteinuria type: other Lupus nephritis M32.14 Essential hypertension I10
[2025-04-15 11:00] VITALS: BP 120/52; BMI 21.9
== END 2025-04-15 11:41 | disposition home or self-care (01) ==
LOC: HO.HKA 10:45
PROVIDERS: Visit Provider Internal Medicine Nephrology
DX: R80.8 Other proteinuria (principal); M32.14 Glomerular disease in systemic lupus erythematosus; I10 Essential (primary) hypertension
CPT/HCPCS: 99214

== ENCOUNTER → 2025-04-15 10:45 | Outpatient (BNVA) | payer MEDICARE, MEDICAID, SELFPAY | PROVIDERS: Visit Provider Internal Medicine Nephrology | DX: R80.8 Other proteinuria (principal); M32.14 Glomerular disease in systemic lupus erythematosus; I10 Essential (primary) hypertension | CPT/HCPCS: 99212 ==